=== PATIENT | female | born 1945 | race Caucasian/White ===

== ENCOUNTER 2020-01-09 14:54 | Outpatient (CLI) | payer MEDICARE, SELFPAY ==
--- NOTE | ~2020-01-09 | US_ITS ---
EXAMINATION: US carotid duplex BI DATE: 01/09/2020 15:36 INDICATION: Carotid stenosis. TECHNIQUE: Grayscale, color Doppler, and pulsed Doppler images of the cervical carotid arteries were obtained. The degree of vessel stenosis is placed in one of the following categories: normal, <50%, 5 0-69%, >=70% but less than near-occlusion, near-occlusion, or total occlusion. Note that percent sten osis relative to normal distal artery lumen diameter is indirectly measured from velocity measurement s as described by Miguel, et al. Radiology 2003; 229:340-346. Notes: Normal: Peak systolic velocity <125 centimeters/sec and no plaque <50%. Peak systolic velocity <125 ( EDV <40; ICA/CCA PSV ratio <2.0; used these factors only a tandem lesions or low cardiac output or co ntralateral disease) 50-69 %: PSV 125-230 (EDV 40-100; ratio 2-4) >= 70% but less than near occlusion: PSV greater than 230 (EDV > 100; ratio> 4.0) Near Occlusion: PSV that is variable; markedly narrowed lumen Occlusion: Absent flow on color/spectral Doppler and no lumen on mandel scale. COMPARISON: Ultrasound dated 09/21/2014 FINDINGS: RIGHT: The right common carotid artery (CCA) peak systolic velocity (PSV) is 118 cm/s. The right internal ca rotid artery (ICA) PSV is 148 cm/s. The right ICA end-diastolic velocity (EDV) is 25 cm/s. The right ICA/CCA PSV ratio is 1.2. The external carotid artery (ECA) PSV is 322 cm/s. There is antegrade flow in the right vertebral artery. LEFT: The left CCA PSV is 122 cm/s. The left ICA PSV is 187 cm/s. The left ICA EDV is 30 cm/s. The left ICA /CCA PSV ratio is 1.5. The ECA PSV is 256 cm/s. There is antegrade flow in the left vertebral artery . IMPRESSION: 1. 50-69% stenosis in the right internal carotid artery by sonographic criteria. 2. 50-69% stenosis in the left internal carotid artery by sonographic criteria. Reviewed, dictated and finalized at location A. IMPRESSION: 1. 50-69% stenosis in the right internal carotid artery by sonographic criteria . 2. 50-69% stenosis in the left internal carotid artery by sonographic criteria.
== END 2020-01-09 14:55 | disposition home or self-care (01) ==
PROVIDERS: Visit Provider Internal Medicine Cardiovascular Disease
DX: I65.23 Occlusion and stenosis of bilateral carotid arteries (principal)
CPT/HCPCS: 93880

== ENCOUNTER → 2020-02-17 10:00 | Outpatient (CLI) | payer MEDICARE, SELFPAY ==
--- NOTE | ~2020-02-17 | CT_ITS ---
EXAMINATION: CT cervical spine [facility] EXAM DATE: 02/17/2020 10:21 INDICATION: Neck pain. TECHNIQUE: Spiral CT of the cervical spine was performed without contrast. Axial images were reviewe d. Coronal and sagittal reformatted images were also reviewed. The dose-length product (DLP) for thi s examination was 225.46 mGy-cm. The exposure was tailored according to patient size (auto mA exposu re control), and iterative reconstruction (ASIR) was used as additional dose reduction technique. Th ere is no prior study for comparison. FINDINGS: There is moderate to severe disc disease from C3 through T2. The vertebral bodies are alig murray in the AP dimension. There are no acute fractures identified. Paraspinal soft tissue is unremarka ble. The odontoid process is intact. The lateral masses of C1 line up with C2. Sternotomy wires. Level by level evaluation: C2-C3: Disc does not extend beyond the endplate margin. Uncovertebral joint arthropathy: None. Facet joint arthropathy: Mild to moderate left, mild right. Neural foraminal stenosis: No stenosis. Central canal stenosis: No stenosis. C3-C4: There is a mild diffuse disc bulge. Uncovertebral joint arthropathy: Moderate right, mild to moderate left. Facet joint arthropathy: Moderate bilateral. Neural foraminal stenosis: Moderate right. Central canal stenosis: Mild. C4-C5: There is a mild diffuse disc bulge. Uncovertebral joint arthropathy: Moderate to severe right, mild to moderate left. Facet joint arthropathy: Mild to moderate right, mild left. Neural foraminal stenosis: Moderate right. Central canal stenosis: Mild. C5-C6: There is a mild diffuse disc bulge. Uncovertebral joint arthropathy: Moderate bilateral. Facet joint arthropathy: Mild bilateral. Neural foraminal stenosis: No stenosis. Central canal stenosis: Mild. C6-C7: There is a minimal diffuse disc bulge. Uncovertebral joint arthropathy: Mild to moderate bilateral. Facet joint arthropathy: Minimal bilateral. Neural foraminal stenosis: No stenosis. Central canal stenosis: No stenosis. C7-T1: Disc does not extend beyond the endplate margin. Uncovertebral joint arthropathy: Mild to moderate left, mild right. Facet joint arthropathy: Mild to moderate bilateral . Neural foraminal stenosis: Moderate left, mild to moderate right. Central canal stenosis: No stenosis. IMPRESSION: Moderate to severe cervical disc disease, mild to moderate arthropathy. Reviewed, dictated and finalized at location A. IMPRESSION: Moderate to severe cervical disc disease, mild to moderate arthropa thy.
== END ==
PROVIDERS: Visit Provider Specialist
DX: M54.2 Cervicalgia (principal); M50.80 Other cervical disc disorders, unspecified cervical region
CPT/HCPCS: 72125

== ENCOUNTER 2020-11-05 08:54 | Outpatient (CLI) | payer MEDICARE, SELFPAY ==
--- NOTE | ~2020-11-05 | CT_ITS ---
EXAMINATION: CT ankle RT wo con DATE: 11/05/2020 10:02 INDICATION: Tendon tear at the right ankle TECHNIQUE: High resolution computed tomography (CT) of the right foot and ankle was performed without intravenous contrast. Additional sagittal and coronal reconstructions were performed. Automated expo sure control and iterative reconstruction technique were employed. The dose-length product was 525.22 mGy-cm. COMPARISON: None FINDINGS: Total right ankle arthroplasty which appears well seated in near-anatomic alignment. There is streak artifact surrounding the components which obscures the immediately adjacent bone and soft tissues. 1. 7 x 1.0 x 0.9 cm chronic lytic lesion with thin sclerotic margins at the medial neck of the talus whi ch could represent degenerative cystic change or chronic erosion potentially related to particle dise ase. No other significant lucency surrounding the tibial or talar components to suggest loosening or infection. No periosteal reaction or other suspicious lytic or blastic bone lesions. No fracture. Mil d polyarticular osteoarthritis involving multiple joints throughout the right foot. Small plantar martha caneal spur with prominent heterotopic ossification along the thickened central component of the plan tar aponeurosis. Visualized portions of the flexor and extensor tendons of the ankle appear unremarka ble. No evident ankle joint effusion. Subcutaneous edema at the ankle and extending over the dorsum o f the foot. IMPRESSION: 1. 1.7 x 1.0 x 0.9 cm chronic lytic lesion with thin sclerotic margins at the medial neck of the talu s on the anterior margin of the talar component of a total right ankle arthroplasty. This could repre sent degenerative cystic change/intraosseous ganglion cyst or a chronic erosion potentially related t o particle disease. No other significant lucency surrounding the arthroplasty components to suggest l oosening. 2. Prominent heterotopic ossification along the central component of the plantar aponeurosis suggesti ng sequela of chronic enthesopathy and/or tear of the aponeurosis. 3. Mild polyarticular osteoarthritis involving multiple joints in the right foot. Reviewed, dictated and finalized at location A. IMPRESSION: 1. 1.7 x 1.0 x 0.9 cm chronic lytic lesion with thin sclerotic margins at the m edial neck of the talus on the anterior margin of the talar component of a tota l right ankle arthroplasty. This could represent degenerative cystic change/int raosseous ganglion cyst or a chronic erosion potentially related to particle di sease. No other significant lucency surrounding the arthroplasty components to suggest loosening. 2. Prominent heterotopic ossification along the central component of the planta r aponeurosis suggesting sequela of chronic enthesopathy and/or tear of the apo neurosis. 3. Mild polyarticular osteoarthritis involving multiple joints in the right lamonte t.
[2020-11-05 09:34] LABS: Estimated Glomerular Filt Rate 20
== END 2020-11-05 08:55 | disposition home or self-care (01) ==
PROVIDERS: Visit Provider Specialist
DX: M25.571 Pain in right ankle and joints of right foot (principal); Z96.651 Presence of right artificial knee joint; M89.9 Disorder of bone, unspecified; M17.11 Unilateral primary osteoarthritis, right knee
CPT/HCPCS: 73700

== ENCOUNTER 2020-11-15 14:31 | Outpatient (CLI) | payer MEDICARE, SELFPAY ==
--- NOTE | ~2020-11-15 | US_ITS ---
EXAMINATION: US carotid duplex BI DATE: 11/15/2020 15:14 INDICATION: Carotid stenosis. TECHNIQUE: Grayscale, color Doppler, and pulsed Doppler images of the cervical carotid arteries were obtained. The degree of vessel stenosis is placed in one of the following categories: normal, <50%, 5 0-69%, >=70% but less than near-occlusion, near-occlusion, or total occlusion. Note that percent sten osis relative to normal distal artery lumen diameter is indirectly measured from velocity measurement s as described by Miguel, et al. Radiology 2003; 229:340-346. COMPARISON: Ultrasound 01/09/2020 FINDINGS: RIGHT: The right common carotid artery (CCA) peak systolic velocity (PSV) is 134 cm/s. The right internal ca rotid artery (ICA) PSV is 186 cm/s. The right ICA end-diastolic velocity (EDV) is 23 cm/s. The right ICA/CCA PSV ratio is 1.4. Grayscale and color Doppler images yield an estimate of >=50% diameter redu ction from plaque in the ICA. There is antegrade flow in the right vertebral artery. LEFT: The left CCA PSV is 125 cm/s. The left ICA PSV is 143 cm/s. The left ICA EDV is 31 cm/s. The left ICA /CCA PSV ratio is 1.1. Grayscale and color Doppler images yield an estimate of >=50% diameter reducti on from plaque in the ICA. There is antegrade flow in the left vertebral artery. IMPRESSION: 1. 50-69% stenosis in the right internal carotid artery. 2. 50-69% stenosis in the left internal carotid artery. Reviewed, dictated and finalized at location B.
== END 2020-11-15 14:32 | disposition home or self-care (01) ==
LOC: ANHIMG 14:32
PROVIDERS: Visit Provider Internal Medicine Cardiovascular Disease
DX: I77.9 Disorder of arteries and arterioles, unspecified (principal); I65.23 Occlusion and stenosis of bilateral carotid arteries
CPT/HCPCS: 93880

== ENCOUNTER → 2021-02-04 07:25 | Outpatient (CLI) | payer MEDICARE, SELFPAY ==
--- NOTE | ~2021-02-04 | MR_ITS ---
EXAMINATION: MR wrist RT wo con DATE: 02/04/2021 08:30 INDICATION: Tear of cartilage or tendon with radial sided right wrist pain. TECHNIQUE: Magnetic resonance imaging (MRI) of the right wrist was performed without intravenous cont rast. Sequences performed include axial PD-weighted FSE and PD-weighted FS FSE, coronal PD-weighted F S FSE and T1-weighted SE, and sagittal PD-weighted FS FSE and PD-weighted FSE. COMPARISON: None FINDINGS: There is motion blurring on all sequences which decreases sensitivity for assessment of the triangula r fibrocartilage complex and intrinsic ligaments. Bones/other: The trapezium is absent and there is proximal migration of the first metacarpal which articulates wit h the distal pole of the scaphoid. This is likely related to prior surgical resection for first carpa l metacarpal suspension arthroplasty as there is a suture anchor tract at the base of the first metac arpal. A few residual bone fragments versus heterotopic ossification or degenerative loose bodies are seen at the palmar aspect of the trapezium resection bed. 2 mm ulnar minus variance. Bone alignment is otherwise normal. No fracture or avascular necrosis or pathologic marrow replacing process. There are erosions along the ulnar side of the volar aspect of the lunate along the insertion of the lunotr iquetral ligament. Polyarticular osteoarthritis, severe at the remaining reticulation between the sca phoid and the trapezoid, moderate severity at the radiocarpal joint and at the articulation between t he capitate and hamate and mild at the remaining joints at the wrist and visualized hand. Intrinsic ligaments: Scapholunate ligament tear involving the central membranous component and at least partial tear of th e dorsal component with mild widening of the dorsal aspect of the scapholunate joint space. The volar component appears to remain intact. Lunotriquetral ligament appears to remain intact. Triangular fibrocartilage complex (TFCC): There is increased signal on both the dorsal and volar radioulnar ligaments consistent with at least partial tears. There is also a tear at the radial side of the central fibrocartilaginous disc of the annular fiber cartilage complex. The foveal and ulnar styloid attachments appear to remain intact. Extensor wrist: The extensor pollicis brevis tendon appears to been utilized for the suspected arthroplasty with the tendon terminating at the dorsal palmar, at the base of the first metacarpal. There is thickening of the tendon proximal to the terminal consistent with mild to moderate tendinopathy. Remainder of the e xtensor tendons appear normal. Flexor wrist: The flexor carpi radialis tendon is not visualized at the level of the wrist and distal forearm and h as also likely been utilized for the suspension arthroplasty. The tendinous unable to be followed pro ximally from its insertion at the base of the second and third metacarpals. The remainder of the flex or tendons of the wrist are normal. No abnormality in the carpal tunnel with normal median nerve. Guyon's canal: Guyon's canal including the ulnar nerve and artery are normal. IMPRESSION: 1. Stopper change of prior trapezium resection and first carpal metacarpal suspension arthroplasty wh ich appears to failed with subsidence/proximal migration of the first metacarpal which now articulate s with the distal pole of the scaphoid. The procedure appears to utilizing both the extensor pollicis brevis tendon which extend into a tunnel at the base of the first metacarpal as well as the flexor c arpi radialis tendon which appears absent proximally and the location and technique of this utilizati on remains indeterminate. Correlate with details of the operative procedure(s). 2. Partial tear of the dorsal and central membranous component of the scapholunate ligament. 3. Polyarticular osteoarthritis at the r
== END ==
PROVIDERS: Visit Provider Specialist
DX: S63.591A Other specified sprain of right wrist, initial encounter (principal); M19.031 Primary osteoarthritis, right wrist; Z98.890 Other specified postprocedural states
CPT/HCPCS: 73221

== ENCOUNTER 2021-08-31 11:58 | Inpatient (IN) | payer MEDICARE, SELFPAY ==
[2021-08-31] VITALS (9 sets, daily range): BP systolic 136–145; BP diastolic 35–64; PULSE 60–76; RESP 16–20; TEMP 36.3–37.1; O2SAT 95–100; BMI 30.6
--- NOTE | 2021-08-31 | ECHO_ITS ---
Patient Info Name: Leidy Voss Age: 76 years : 1945 Gender: Female Ht: 59 in Wt: 151 lbs BSA: 1.72 m2 HR: 66 bpm BP: 143 / 61 mmHg Heart Rhythm: Sinus Rhythm Technical Quality: Fair Exam Date: 08/31/2021 1:20 PM Exam Location: [facility] Pulmonary Exam Room: 200 Patient Status: Inpatient Admit Date: 08/31/2021 Staff Ordering Physician: Dianna Aguilera MD Table Assembler Metal: Shikha Cazares RDCS Attending Provider: Dianna Aguilera MD Exam Type: CA echo doppler color flow Study Info Indications - chf exacerbation Complete two-dimensional, color flow and Doppler transthoracic echocardiogram is performed. Summary 1. Complete two-dimensional, color flow and Doppler transthoracic echocardiogram is performed. 2. Left ventricular chamber dimension is normal. 3. Left ventricular systolic function is normal, estimated at 55-60%. 4. There is mildly increased left ventricular wall thickness. 5. The left ventricular diastolic function is grade II diastolic dysfunction. 6. The basal inferior wall, and mid inferior wall are hypokinetic. 7. Left atrial chamber dimension is moderately enlarged. 8. There is mild to moderate mitral valve regurgitation. 9. There is mild tricuspid valve regurgitation. 10. Mild pulmonary hypertension, estimated pulmonary arterial systolic pressure is 41 mmHg. 11. There is mild pulmonic regurgitation. 12. There is small pericardial effusion. Left Ventricle Left ventricular chamber dimension is normal. Left ventricular systolic function is normal, estimated at 55-60%. There is mildly increased left ventricular wall thickness. The left ventricular diastolic function is grade II diastolic dysfunction. The basal inferior wall, and mid inferior wall are hypokinetic. All other elizondo appear normal. Right Ventricle Right ventricular chamber dimension is normal. Right ventricular systolic function is normal. Left Atria Left atrial chamber dimension is moderately enlarged. Right Atria Right atrial chamber dimension is normal. Atrial Septum Intact interatrial septum visualized by color flow imaging. Aortic Valve The aortic valve is trileaflet. There is mild aortic valve sclerosis. There is no aortic valve stenosis. There is trace aortic valve regurgitation. Pulmonic Valve The pulmonic valve is normal. There is no pulmonic valve stenosis. There is mild pulmonic regurgitation. Mitral Valve The mitral valve has normal leaflets. There is no mitral valve stenosis. There is mild to moderate mitral valve regurgitation. Tricuspid Valve The tricuspid valve leaflets are normal. There is no significant tricuspid valve stenosis. There is mild tricuspid valve regurgitation. Mild pulmonary hypertension, estimated pulmonary arterial systolic pressure is 41 mmHg. Pericardium/Pleural The pericardium appears normal. There is small pericardial effusion. Inferior Vena Cava Normal inferior vena cava with <50% collapse upon inspiration consistent with elevated right atrial pressure, 10 mmHg. Aorta The aortic root size at the sinus of Valsalva is normal. Left Ventricular Outflow Tract Name Value Normal LVOT 2D LVOT Diameter 2.0 cm
--- NOTE | ~2021-08-31 | XR_ITS ---
XR chest 1V portable DATE: 09/04/2021 05:55 INDICATION: Shortness of breath TECHNIQUE: Portable AP chest on 09/04/2021 at 0520 hours COMPARISON: September 02, 2021 PA and lateral chest FINDINGS: Status post sternotomy. Borderline heart size. Aortic arch calcification. There is rather diffuse right pulmonary infiltrate and left lower lung infiltrate or atelectasis, imp roved since September 02, 2021. There is slight if any pleural effusion. No pneumothorax. IMPRESSION: Moderate improvement of pulmonary infiltrates since September 02, 2021 Reviewed, dictated and finalized at location A. HER AND BINDER OPERATOR IMPRESSION: Moderate improvement of pulmonary infiltrates since September 02 22
--- NOTE | ~2021-08-31 | US_ITS ---
EXAMINATION: US renal BI EXAM DATE: 08/31/2021 12:55 INDICATION: MASSIMO TECHNIQUE: Multiple grayscale and Doppler images of the kidneys were obtained (by a technologist who performed the scan) and subsequently reviewed. FINDINGS: Right kidney: There is normal contour and mildly increased echogenicity. It measures the right kidne y measures 10.4 x 5.3 x 5.1 cm centimeters. There is a 2 cm cyst. There is no hydronephrosis. Left kidney: There is normal contour and mildly increased echogenicity. It measures 10.0 x 5.5 x 5.3 centimeters. There are no focal renal lesions identified. There is no hydronephrosis. Bladder unremarkable. IMPRESSION: 1. Mildly increased renal echogenicity, medical renal disease. 2. No hydronephrosis. Reviewed, dictated and finalized at location A. NETWORK ARCHITECT
--- NOTE | ~2021-08-31 | XR_ITS ---
XR chest 2V 09/02/2021 09:36 Indication: Shortness of breath Procedure: 2 view chest Comparison: 08/31/2021 Findings: There is bilateral airspace disease, right greater than left, consistent with pneumonia. St atus post median sternotomy for CABG. Cardiomegaly. No significant effusion or pneumothorax. No acute osseous abnormality. Impression: 1: Bilateral airspace disease, right greater than left, consistent with pneumonia. Edema less favored . Reviewed, dictated and finalized at location A. LTY PHYSICIAN Impression: 1: Bilateral airspace disease, right greater than left, consistent with pneumon ia. Edema less favored.
--- NOTE | ~2021-08-31 | XR_ITS ---
EXAMINATION: XR chest 1V portable EXAM DATE: 08/31/2021 12:19 INDICATION: Pulmonary edema. TECHNIQUE: Portable AP frontal chest x-ray was obtained. There is no prior study for comparison. FINDINGS: There is cardiomegaly. Sternotomy wires are present without findings to suggest sternal deh iscence. Moderate amount of right-sided, small amount of left-sided ill-defined edema or pneumonia. N o pneumothorax. Right humeral head rotator cuff repair anchor. The bones are osteopenic. There are b tip degenerative changes. There is aortic arteriosclerosis. IMPRESSION: 1. Cardiomegaly. 2. Moderate right, small left edema or pneumonia. Reviewed, dictated and finalized at location A. T PAIN COORDINATOR
--- NOTE | 2021-08-31 11:18 | ADMGEN ---
This patient, Leidy Voss, was admitted to IMU Room 200-01. Patient/family oriented to hospital policies and general routines including ID bracelet, bed and alarms, visiting hours, pain management, procedures, bathroom and other care routines, personal items, smoking policy, room service/diet, and visiting hours. Information on how to activate the Rapid Response Team has been discussed. Patient/Family are encouraged to report perceived risks to care and to ask questions if they do not understand what they are told or what they should do.
--- NOTE | 2021-08-31 12:05 | ECG_ITS ---
Measurements Intervals Miranda Rate: 64 P: 15 NH: 170 QRS: 17 QRSD: 97 T: -26 QT: 426 QTc: 440 Interpretive Statements SINUS RHYTHM VENTRICULAR PREMATURE COMPLEX BORDERLINE R WAVE PROGRESSION, ANTERIOR LEADS T WAVE ABNORMALITY IN INFERIOR LEADS- CONSIDER ISCHEMIA BASELINE ARTIFACT- I, II, III, AVR, AVL, AVF ABNORMAL ECG Electronically Signed On 08-31-2021 14:15:21 SECURITY TRAINER by Konstantin Nascimento D.O.
[2021-08-31] MEDS: metOLazone 2.5 MG TABLET PO (12:29)
[2021-08-31] MEDS: FUROSEMIDE INJ 100 MG/10 ML VIAL 80 MG IV PUSH ×2 (12:29→17:17)
[2021-08-31 12:34] LABS: Glucose Point of Care 103 mg/dl (65-105)
--- NOTE | 2021-08-31 12:35 | PM.CNNEP ---
Assessment and Plan Assessment and plan (1) MASSIMO (acute kidney injury): Code(s): N17.9 - Acute kidney failure, unspecified Status: Acute Assessment and Plan: etiology not clear possible component of CKD progression(?) however, per patient, symptoms started after her right arm orthopedic procedure... did some event occur during surgery that precipitated this?? check renal ultrasound follow-up on urine electrolytes check CPK hold BP medications agree with high dose IV diuretics follow trend of repeat labs and UOP (2) Chronic kidney disease, stage IV (severe): Code(s): N18.4 - Chronic kidney disease, stage 4 (severe) Status: Chronic Assessment and Plan: baseline creatinine 2.2 - 2.7mg/dl in the last year based on outpatient evaluation, this is due to HTN, diabetes, vascular disease and age (3) CHF exacerbation: Code(s): I50.9 - Heart failure, unspecified Status: Acute Assessment and Plan: Cardiology consulted Echo ordered follow trend of I/Os, daily weights, and respiratory status (4) HTN (hypertension): Code(s): I10 - Essential (primary) hypertension Status: Chronic Assessment and Plan: reasonable control follow trend of hemodynammics (5) Anemia: Code(s): D64.9 - Anemia, unspecified Status: Chronic Assessment and Plan: likely related to underlying CKD possibly exacerbated by MASSIMO and recent surgery(?) check iron studies consider Epogen therapy follow H/H (6) Diabetes: Code(s): E11.9 - Type 2 diabetes mellitus without complications Status: Chronic Assessment and Plan: follow accuchecks glycemic control Will continue to follow. History of Present Illness Reason for Consult Consult date: 08/31/21 Reason for consult: acute renal failure (on chronic kidney disease) Chief Complaint Chief complaint: Acute Renal Failure History of Present Illness Narrative: The patient is a 76-year-old female with a past medical history as outlined below who was transferred from an outside hospital for further management of her worsening renal dysfunction in association with a CHF exacerbation. Apparently, the patient was in her usual state of health until about 3 days prior to her admission to the outside hospital. She apparently developed shortness of breath that progressively got worse in association with worsening lower extremity edema / swelling. Interestingly, the shortness of breath started about a day after she had her recent orthopedic procedure on her right arm. The symptoms continued to progress until eventually she decided to come to the ER for further evaluation. On further questioning, the patient states that following her right arm orthopedic procedure, she was noted to be hypoxic. She was apparently kept overnight for observation but apparently her oxygen saturations improved although Javid still had complaints of shortness of breath nonetheless she was discharged home. When she came back to the outside hospital emergency room with her shortness of breath, workup and evaluation that time demonstrated the patient to be hemodynamically stable but her chest x-ray demonstrated mild to moderate cardiomegaly with hazy bilateral opacities with the right greater than left. There was concern that this pattern may represent pulmonary edema versus underlying pneumonia. In the emergency room, she was given IV diuretics as well as Rocephin and azithromycin after appropriate cultures were obtained. She was subsequent admitted to the outside hospital. During her stay at the outside hospital, she continued to have issues and problems with poor response to diuretics and worsening of her renal dysfunction on top of her baseline disease. There was concern that she may require further intervention that was unavailable at the outside hospital/institution. For this reason, she was transferred to [facility]
[2021-08-31 13:04] LABS: Basophils Percent Auto 0.3 % (0.2-1.2); Eosinophils Absolute Auto 0.1 K/mm3 (0-0.3); Hematocrit 24.2 % (37.0-47.0); Hemoglobin 7.6 g/dL (12.0-15.0); Immature Granulocyte Absolute 0.12 K/mm3 (0.00-0.031); Immature Granulocyte Percent A 0.9 % (0-0.5); Lymphocytes Absolute Auto 1.29 K/mm3 (0.9-3.2); Lymphocytes Percent Auto 9.4 % (18.3-44.2); Mean Corpuscular HGB Conc 31.4 g/dl (32-36); Mean Corpuscular Hemoglobin 28.3 pg (26-34); Mean Platelet Volume 9.7 fl (7.4-10.4); Monocytes Absolute Auto 1.2 K/mm3 (0.1-0.6); Monocytes Percent Auto 8.6 % (2.6-8.5); Neutrophils Percent Auto 79.8 % (45.5-73.1); Platelet Count Result 169 k/mm3 (150-375); Red Blood Count 2.69 M/mm3 (4.2-5.4); Red Cell Distribution Width 16.3 % (11.5-14.5); White Blood Count 13.8 K/mm3 (4.5-10.0)
[2021-08-31 13:12] LABS: Alanine Aminotransferase 15 U/L (4-35); Albumin Level 3.3 g/dL (3.5-5.1); Alkaline Phosphatase 91 U/L (38-126); Anion Gap 11 mmol/L (8-16); Aspartate Amino Transferase 42 U/L (14-36); Bilirubin,Total 0.5 mg/dL (0.2-1.3); Blood Urea Nitrogen 90 mg/dL (7-17); Calcium 8.3 mg/dL (8.4-10.2); Carbon Dioxide 18 mmol/L (22-30); Chloride 103 mmol/L (98-107); Creatine Kinase 155 U/L (30-135); Estimated Glomerular Filt Rate 11; Glucose 107 mg/dL (65-110); Phosphorus 5.9 mg/dL (2.5-4.5); Potassium 4.4 mmol/L (3.4-5.0); Sodium 132 mmol/L (137-145)
[2021-08-31 13:13] LABS: Lactic Acid Reflex 0.8 mmol/L (0.7-2.1)
--- NOTE | 2021-08-31 13:23 | PM.IMHP ---
H&P: HPI History of Present Illness Date/Time: 08/31/21 13:23 Shortness of breath This is a 76-year old lady with a past medical history including not limited to HTN, ASCVD, c/p CABG, stent, CKD, CHF, gout, recent right arm orthopedic procedure who is referred from an OSH after she was managed for CHF exacerbation; in consideration for her worsening kidney function, and poor response to diuretics, she was referred and accepted by our hospitalist department. The patient was in her usual state of health until 3 days ago. The patient, who is not on oxygen at baseline was short of breath, presented to the Ed complaining of SOB since Thursday after she had surgery on her right arm; . On the arrival to the OSH, she reports that she had a nerve block, and her O2 was low after the intervention, so she was kept under observation overnight then discharged home. Her only complaint was SOB.Chest Xray showed mild to moderate cardiomegaly. Hazy bilateral opacities, R>L. This pattern may reporesent underlying pneumonia. The patient vital signs were stable throughout her short inpatient stay, with on admission: temperature 98.2F, pulse 63, R 17, BP 137/37, saturation 98%. She was given furosemide, rocephin, azithromycin, ASA. She was referred to [facility] for renal care Chief Complaint: Shortness of breath. Review of Systems Review of Systems: All systems reviewed & are unremarkable except as noted in HPI and below Constitutional: Constitutional: Reports as per HPI and Reports no additional constitutional complaints Eyes: Eyes: Reports as per HPI and Reports no additional eye complaints ENT: Reports system reviewed and no additional complaints, except as documented and Reports as per HPI Cardiovascular: Cardiovascular: Reports as per HPI, Reports no additional cardiovascular complaints and Reports leg edema Respiratory: Respiratory: Reports as per HPI, Reports dyspnea, Reports dyspnea on exertion and Denies wheezing Gastrointestinal: Gastrointestinal: Reports as per HPI, Reports no additional gastrointestinal complaints, Reports abdominal pain, Reports diarrhea and Reports vomiting Genitourinary: Genitourinary: Reports as per HPI Musculoskeletal: Musculoskeletal: Reports no additional musculoskeletal complaints and Reports as per HPI Integumentary/Breasts: Skin/Breast: Reports system reviewed and no additional complaints, except as docu and Reports as per HPI Neurologic: Reports system reviewed and no additional complaints, except as documented and Reports as per HPI Psychiatric: Psychiatric: Reports no additional psychiatric complaints and Reports as per HPI FOR[facility]LY [facility], [facility] Family History Family History Mother Diabetes mellitus Hypertension Acute myocardial infarction Father Cancer of bone Sibling Social History Social History Smoking status: Never smoker Alcohol intake: never Substance use: never Spiritual care concerns: No Meds Home Medications and Allergies Home Medications Medication Instructions Recorded Confirmed Type acetaminophen-codeine 1 tablet PO Q4H PRN 08/31/21 08/31/21 History allopurinol 150 mg PO DAILY 08/31/21 08/31/21 History amlodipine 5 mg PO DAILY 08/31/21 08/31/21 History aspirin 81 mg PO DAILY 08/31/21 08/31/21 History atorvastatin 40 mg PO HS 08/31/21 08/31/21 History carvedilol 25 mg PO BID 08/31/21 08/31/21 History famotidine [Pepcid AC] 20 mg PO DAILY 08/31/21 08/31/21 History furosemide 40 mg PO DAILY 08/31/21 08/31/21 History glimepiride 2 mg PO DAILY 08/31/21 08/31/21 History hydralazine 100 mg PO QID 08/31/21 08/31/21 History tramadol 50 mg PO Q6H PRN 08/31/21 08/31/21 History Allergies Allergy/AdvReac Type Severity Reaction Status Date / Time metronidazole Allergy Severe Diarrhea Verified 06/14/18 10:48 carbamazepine Allergy Mild Itching Verified 06/14/18 10:48 hydrocodone Al
[2021-08-31 13:31] LABS: Iron 28 ug/dL (37-170)
[2021-08-31 13:41] LABS: Percent Iron Saturation 16 % (20-50)
[2021-08-31 16:02] LABS: Vitamin D 25 Hydroxy 15.7 ng/mL
[2021-08-31 16:44] LABS: Glucose Point of Care 137 mg/dl (65-105)
[2021-08-31] MEDS: ASPIRIN 81 MG ENTERIC TABLET PO (17:16)
[2021-08-31 17:40] LABS: Creatinine Urine 64.3 mg/dL; Urea Random Urine 242 MG/DL
[2021-08-31 17:44] LABS: Add Urine Microscopic? YES; Appearance Urine Clear (Clear); Bilirubin Urine Negative (Negative); Blood Urine Negative (Negative); Color Urine Yellow (Yellow); Glucose Urine UA Negative (Negative); Ketones Urine Negative (Negative); Leukocyte Esterase Ur Negative LEU/UL (NEGATIVE); Nitrate Urine Negative (Negative); Protein Urine 1+ mg/dL (Negative); RBC Urine 0-2 /hpf (0-2); Specific Grav Ur 1.009 (1.001-1.035); Squamous Epithelial Cell Urine Occasional /hpf (Few); Urobilinogen Urine Negative mg/dL (<2.0); WBC Urine 0-3 /hpf (0-3)
[2021-08-31 17:51] LABS: Sodium Urine Random 81 meq/L
--- NOTE | 2021-08-31 18:00 | ECG_ITS ---
Measurements Intervals [place] Rate: 68 P: 72 AL: 172 QRS: 37 QRSD: 97 T: -30 QT: 415 QTc: 444 Interpretive Statements SINUS RHYTHM BORDERLINE R WAVE PROGRESSION, ANTERIOR LEADS T WAVE ABNORMALITY IN INFERIOR LEADS- CONSIDER ISCHEMIA ABNORMAL ECG Electronically Signed On 08-31-2021 19:05:44 GYNECOLOGIST by Konstantin Nascimento D.O.
[2021-08-31] MEDS: carvediloL 25 MG TABLET PO (18:29)
[2021-08-31 18:40] LABS: Troponin I 0.649 ng/mL (0.000-0.034)
[2021-08-31 20:46] LABS: Glucose Point of Care 208 mg/dl (65-105)
[2021-08-31] MEDS: ATORVASTATIN 40 MG TABLET PO (21:14)
[2021-09-01] VITALS (22 sets, daily range): BP systolic 143–177; BP diastolic 39–54; PULSE 64–77; RESP 16–22; TEMP 36.2–37.4; O2SAT 93–99
[2021-09-01 06:40] LABS: Basophils Percent Auto 0.2 % (0.2-1.2); Eosinophils Absolute Auto 0.3 K/mm3 (0-0.3); Eosinophils Percent Auto 2.7 % (0-4.4); Hematocrit 21.5 % (37.0-47.0); Immature Granulocyte Absolute 0.08 K/mm3 (0.00-0.031); Immature Granulocyte Percent A 0.7 % (0-0.5); Lymphocytes Absolute Auto 1.28 K/mm3 (0.9-3.2); Lymphocytes Percent Auto 11.5 % (18.3-44.2); Mean Corpuscular HGB Conc 31.6 g/dl (32-36); Mean Corpuscular Hemoglobin 28.1 pg (26-34); Mean Corpuscular Volume 88.8 fl (80-100); Mean Platelet Volume 10.1 fl (7.4-10.4); Monocytes Absolute Auto 1.1 K/mm3 (0.1-0.6); Monocytes Percent Auto 9.6 % (2.6-8.5); Neutrophils Absolute Auto 8.4 K/mm3 (1.3-6.7); Neutrophils Percent Auto 75.3 % (45.5-73.1); Platelet Count Result 166 k/mm3 (150-375); Red Blood Count 2.42 M/mm3 (4.2-5.4); Red Cell Distribution Width 16.1 % (11.5-14.5); White Blood Count 11.2 K/mm3 (4.5-10.0)
[2021-09-01 06:44] LABS: Hemoglobin 6.8 g/dL (12.0-15.0)
[2021-09-01 07:40] LABS: Anion Gap 7 mmol/L (8-16); Blood Urea Nitrogen 102 mg/dL (7-17); Calcium 7.8 mg/dL (8.4-10.2); Carbon Dioxide 22 mmol/L (22-30); Chloride 103 mmol/L (98-107); Estimated Glomerular Filt Rate 12; Glucose 81 mg/dL (65-110); Magnesium 1.9 mg/dL (1.6-2.3); Phosphorus 6.1 mg/dL (2.5-4.5); Sodium 132 mmol/L (137-145)
[2021-09-01 08:12] LABS: Glucose Point of Care 80 mg/dl (65-105)
--- NOTE | 2021-09-01 08:39 | PM.CNCAR ---
Assessment and Plan Additional Plan 76-year-old lady with: Multivessel coronary artery disease status post surgical revascularization about 10 years ago the notes from our chart indicates she has been fairly stable since then without any new cardiac problems. She clearly has advancing renal failure and now enters the hospital with volume overload probably primarily related to that more than anything else. An echocardiogram was done which has yet to be read in terms of any additional cardiac pathology or change in her LV function. It is interesting to note that she was relatively stable with this until last week's surgery and there was some comment that her nerve block might result in some diaphragmatic dysfunction. This probably should also be evaluated as the chest x-ray at least to my eye looks much worse on the right lung than on the left. Will review her echocardiographic findings and follow with you while she is in the hospital at this time she seems to be responding favorably to the advancement in her diuretics and she is feeling better today than she was prior to transfer over here from [place] Perez Lepe MD [facility] History of Present Illness History of Present Illness Consult date/time: 09/01/21 08:39 Consult reason: congestive heart failure Reason For Visit: Acute Renal Failure Narrative: This is a 76-year-old woman who apparently has coronary artery disease with previous percutaneous and surgical revascularization and normally follows in the office with my partner Dr. Julien. She was transferred here to [facility] yesterday from the hospital over at [place] because of shortness of breath and congestion as well as advancing renal failure. The patient states she was in her usual state lung which she thinks is fairly stable health until last week when she was treated over at [facility] in [place] and had some sort of hand surgery. She says she had some repair of torn tendons in her right hand and had a Anesthesia a nerve block injection. The anesthesiologist told her there was a chance this could cause some dysfunction of her diaphragm on that side. The surgery was done and she was discharged as an outpatient. Since then she has been feeling more short of breath and came into the hospital in [place] with evidence of pulmonary congestion and significant renal insufficiency. She is not experiencing any chest pain pressure or heaviness she does not have any sense of palpitations or syncope. According to the notes from our office she has a lady with multivessel coronary disease was treated with bypass surgery in November of 2011. That was over at [facility] I believe where she received an internal mammary graft to the LAD, a saphenous vein graft to a diagonal, a saphenous vein graft to the ramus intermedius and a 3rd vein graft to the RPDA. Since then she has done well with respect to her heart disease. Dr. Julien is notes since then do indicate that she has been having gradually progressive worsening renal failure which is attributed to her hypertension. She does follow with Dr. Esquivel regarding this. Currently her BUN is 102 with a creatinine of 3.6. Her diuretics were advanced yesterday she says she is now prompting a urine output and she does feel better this morning although she still is wearing nasal cannula oxygen. Her chest x-ray does show congestion which appears radiographically to be significantly worse on the right side than on the left. For some reason a troponin level was done which is 0.6. Review of Systems Constitutional: Constitutional: Reports no additional constitutional complaints Eyes: Eyes: Reports no additional eye complaints ENT: Reports system reviewed and no additional complaints, except as documented Cardiovascular: Cardiovascular: Reports as per HPI Respiratory: Respiratory: Reports dyspnea Gastrointestinal: Gastrointestinal: Reports no additional gastrointestinal complaints Mus
[2021-09-01] MEDS: carvediloL 25 MG TABLET PO ×2 (08:40→17:04)
[2021-09-01] MEDS: FUROSEMIDE INJ 100 MG/10 ML VIAL 80 MG IV PUSH ×2 (08:40→17:04)
[2021-09-01] MEDS: ASPIRIN 81 MG ENTERIC TABLET PO (08:40)
[2021-09-01] MEDS: metOLazone 2.5 MG TABLET PO (08:41)
[2021-09-01] MEDS: FAMOTIDINE 20 MG TABLET PO (08:54)
[2021-09-01] MEDS: allopurinoL 150 MG TABLET PO (08:54)
[2021-09-01] MEDS: INSULIN ASPART (*BKC) 100 UNITS/ML SUB-Q ×2 (11:51→17:03)
--- NOTE | 2021-09-01 12:44 | P.PNNP_ITS ---
Progress Note: A&P Assessment and Plan (1) MASSIMO (acute kidney injury): Code(s): N17.9 - Acute kidney failure, unspecified Status: Acute Assessment and Plan: * etiology not clear * possible component of CKD progression(?) * however, per patient, symptoms started after her right arm orthopedic procedure... * did some event occur during surgery that precipitated this?? * secondary to possible pneumonia? * evaluation to date: * renal ultrasound c/w CKD; no acute findings * CPK mildly elevated but not enough to affect kidney function * urine electrolytes non-prerenal * hold BP medications to see if higher BP promotes better renal perfusion * agree with high dose IV diuretics * follow trend of repeat labs and UOP (2) Chronic kidney disease, stage IV (severe): Code(s): N18.4 - Chronic kidney disease, stage 4 (severe) Status: Chronic Assessment and Plan: * baseline creatinine 2.2 - 2.7mg/dl in the last year * based on outpatient evaluation, this is due to HTN, diabetes, vascular disease and age (3) CHF exacerbation: Code(s): I50.9 - Heart failure, unspecified Status: Acute Assessment and Plan: * Cardiology recommendations noted * follow-up on Echo * reasonable diuresis with current therapy * follow trend of I/Os, daily weights, and respiratory status (4) HTN (hypertension): Code(s): I10 - Essential (primary) hypertension Status: Chronic Assessment and Plan: * up a bit but some BP medications on hold * follow trend of hemodynammics (5) Anemia: Code(s): D64.9 - Anemia, unspecified Status: Chronic Assessment and Plan: * likely related to underlying CKD * possibly exacerbated by MASSIMO and recent surgery(?) * anemia studies with iron deficiency - hold IV iron given concern for infection (pneumonia) * PRBC transfusion per protocol * consider Epogen therapy * follow H/H (6) Diabetes: Code(s): E11.9 - Type 2 diabetes mellitus without complications Status: Chronic Assessment and Plan: * follow accuchecks * on SSI Will continue to follow Subjective Date/time seen: 09/01/21 12:44 Reasonably response to IV diuretic therapy with improvement in breathing/respiratory status and swelling/edema although at the expense of renal function with rise in BUN and creatinine; low H/H noted by AM labs so PRBC transfusion planned today; no apparent distress voiced; at bedside and we discussed the situation. Exam Narrative: General: large female in NAD Heart: normal S1 and S2; no rub Lungs: bibasilar crackles noted Abdomen: soft, nontender, nondistended, positive bowel sounds Extremities: no cyanosis or clubbing; trace - 1+ edema Skin: warm and dry Objective Data Vital Signs Vital Signs: Vital Signs Temp Pulse Resp BP Pulse Ox 09/01/21 12:00 36.9 C 64 18 152/42 H 95 09/01/21 10:00 67 09/01/21 08:40 72 09/01/21 08:00 36.9 C 66 18 152/39 H 97 09/01/21 06:00 65 09/01/21 04:00 36.9 C 64 22 H 149/42 H 99 09/01/21 02:00 70 09/01/21 00:00 37.4 C 69 20 149/45 H 96 08/31/21 22:24 100 08/31/21 22:23 75 100 08/31/21 22:00 76 08/31/21 20:00 37.1 C 69 20 139/49 L 95 08/31/21 18:29 69 08/31/21 18:00
--- NOTE | 2021-09-01 12:44 | PM.PNNEP ---
Progress Note: A&P Assessment and Plan (1) MASSIMO (acute kidney injury): Code(s): N17.9 - Acute kidney failure, unspecified Status: Acute Assessment and Plan: etiology not clear possible component of CKD progression(?) however, per patient, symptoms started after her right arm orthopedic procedure... did some event occur during surgery that precipitated this?? secondary to possible pneumonia? evaluation to date: renal ultrasound c/w CKD; no acute findings CPK mildly elevated but not enough to affect kidney function urine electrolytes non-prerenal hold BP medications to see if higher BP promotes better renal perfusion agree with high dose IV diuretics follow trend of repeat labs and UOP (2) Chronic kidney disease, stage IV (severe): Code(s): N18.4 - Chronic kidney disease, stage 4 (severe) Status: Chronic Assessment and Plan: baseline creatinine 2.2 - 2.7mg/dl in the last year based on outpatient evaluation, this is due to HTN, diabetes, vascular disease and age (3) CHF exacerbation: Code(s): I50.9 - Heart failure, unspecified Status: Acute Assessment and Plan: Cardiology recommendations noted follow-up on Echo reasonable diuresis with current therapy follow trend of I/Os, daily weights, and respiratory status (4) HTN (hypertension): Code(s): I10 - Essential (primary) hypertension Status: Chronic Assessment and Plan: up a bit but some BP medications on hold follow trend of hemodynammics (5) Anemia: Code(s): D64.9 - Anemia, unspecified Status: Chronic Assessment and Plan: likely related to underlying CKD possibly exacerbated by MASSIMO and recent surgery(?) anemia studies with iron deficiency - hold IV iron given concern for infection (pneumonia) PRBC transfusion per protocol consider Epogen therapy follow H/H (6) Diabetes: Code(s): E11.9 - Type 2 diabetes mellitus without complications Status: Chronic Assessment and Plan: follow accuchecks on SSI Will continue to follow Subjective Date/time seen: 09/01/21 12:44 Reasonably response to IV diuretic therapy with improvement in breathing/respiratory status and swelling/edema although at the expense of renal function with rise in BUN and creatinine; low H/H noted by AM labs so PRBC transfusion planned today; no apparent distress voiced; at bedside and we discussed the situation. Exam Narrative: General: large female in NAD Heart: normal S1 and S2; no rub Lungs: bibasilar crackles noted Abdomen: soft, nontender, nondistended, positive bowel sounds Extremities: no cyanosis or clubbing; trace - 1+ edema Skin: warm and dry Objective Data Vital Signs Vital Signs: Vital Signs Temp Pulse Resp BP Pulse Ox 09/01/21 12:00 36.9 C 64 18 152/42 H 95 09/01/21 10:00 67 09/01/21 08:40 72 09/01/21 08:00 36.9 C 66 18 152/39 H 97 09/01/21 06:00 65 09/01/21 04:00 36.9 C 64 22 H 149/42 H 99 09/01/21 02:00 70 09/01/21 00:00 37.4 C 69 20 149/45 H 96 08/31/21 22:24 100 08/31/21 22:23 75 100 08/31/21 22:00 76 08/31/21 20:00 37.1 C 69 20 139/49 L 95 08/31/21 18:29 69 08/31/21 18:00 70 08/31/21 16:00 36.8 C 62 20 145/35 H 97 Intake/Output Intake/Output: Intake & Output 08/29/21 08/30/21 08/31/21 09/01/21 23:59 23:59 23:59 23:59 Intake Total 930 985 Output Total 600 1600 Balance 330 -615 Meds/Results Medications: Active Medications Generic Name Dose Route Start Last Admin Trade Name Freq PRN Reason Stop Dose Admin Acetaminophen/Codeine Phosphate 1 tab 08/31/21 13:46 Acetaminophen/Codeine (*Crx) 300/30 Mg Tablet PO Q4H PRN Pain (Scale Score 4-6) Allopurinol 150 mg 09/01/21 09:00 09/01/21 08:54 Allopurinol 150 Mg Tablet PO 150 mg DAILY MACARIO Administration Aspirin 8
--- NOTE | 2021-09-01 13:01 | PM.IMPN ---
Progress Note: A&P Assessment and Plan (1) CHF exacerbation: Code(s): I50.9 - Heart failure, unspecified Status: Acute Assessment and Plan: Acutely decompensated CHF, 2/2 volume overload from kidney disease contiue diuresis appreciate cardiology input (2) Acute kidney injury superimposed on CKD: Code(s): N17.9 - Acute kidney failure, unspecified; N18.9 - Chronic kidney disease, unspecified Status: Acute Assessment and Plan: cr 3.6 nephrology consult pending (3) HTN (hypertension): Code(s): I10 - Essential (primary) hypertension Status: Chronic Assessment and Plan: monitor bp (4) CAD (coronary artery disease): Code(s): I25.10 - Atherosclerotic heart disease of ramona coronary artery without angina pectoris Status: Acute Assessment and Plan: CAD s/p CABG and stents; no reports of chest pain. cardiology managing (5) Gout: Code(s): M10.9 - Gout, unspecified Status: Acute Assessment and Plan: Currently no evidence of acute exacerbation. continue allopurinol (6) Diabetes: Code(s): E11.9 - Type 2 diabetes mellitus without complications Status: Chronic Assessment and Plan: ssi monitor bs Subjective Date/time seen: 09/01/21 13:01 no new complaints breathing is better Exam Const: General: no acute distress and uncomfortable HENMT: Mouth: Yes moist mucous membranes Eyes: General: appearance normal, both eyes and all related structures Sclera: sclerae normal Pupils: Equal, round and reactive pupils present Neck: Neck: no JVD Lymphatic: lymphadenopathy not noted Resp: Effort & Inspection: normal respiratory effort Auscultation: clear to auscultation bilaterally, no crackles and rales Cardio: Rate: regular rate Rhythm: regular rhythm GI: Inspection: non-distended Skin: General skin exam: normal color and no rashes or lesions noted Neuro: Cranial nerves: Yes Equal, round and reactive pupils present Extrem: General: normal to inspection Right upper extremity: normal to inspection Left upper extremity: normal to inspection Right lower extremity: normal to inspection and edema Left lower extremity: normal to inspection and edema Other: RUE cast Psych: Mental Status: mental status grossly normal Objective Data Vital Signs Vital Signs: Vital Signs - 24 hr 08/31/21 16:00 08/31/21 18:00 08/31/21 18:29 Temperature 98.2 F Pulse Rate 62 70 69 Respiratory Rate 20 Blood Pressure 145/35 H Pulse Oximetry 97 08/31/21 20:00 08/31/21 22:00 08/31/21 22:23 Temperature 98.7 F Pulse Rate 69 76 75 Respiratory Rate 20 Blood Pressure 139/49 L Pulse Oximetry 95 100 08/31/21 22:24 09/01/21 00:00 09/01/21 02:00 Temperature 99.3 F Pulse Rate 69 70 Respiratory Rate 20 Blood Pressure 149/45 H Pulse Oximetry 100 96 09/01/21 04:00 09/01/21 06:00 09/01/21 08:00 Temperature 98.5 F 98.4 F Pulse Rate 64 65 66 Respiratory Rate 22 H 18 Blood Pressure 149/42 H 152/39 H Pulse Oximetry 99 97 09/01/21 08:40 09/01/21 10:00 09/01/21 12:00 Temperature 98.4 F Pulse Rate 72 67 64 Respiratory Rate 18 Blood Pressure 152/42 H Pulse Oximetry 95 Intake/Output Intake/Output: Intake & Output 08/29/21 08/30/21 08/31/21 09/01/21 23:59 23:59 23:59 23:59 Intake Total 930 985 Output Total 600 1600 Balance 330 -615 Meds/Results Medications: Active Medications Generic Name Dose Route Start Last Admin Trade Name Freq PRN Reason Stop Dose Admin Acetaminophen/Codeine Phosphate 1 tab 08/31/21 13:46 Acetaminophen/Codeine (*Crx) 300/30 Mg Tablet PO Q4H PRN Pain (Scale Score 4-6) Allopurinol 150 mg 09/01/21 09:00 09/01/21 08:54 Allopurinol 150 Mg Tablet PO 150 mg DAILY MACARIO Administration Aspirin 81 mg 08/31/21 14:25 09/01/21 08:40 Aspirin 81 Mg Enteric Tablet PO 81 mg QAM MACARIO Administration Atorvastatin C
[2021-09-01] MEDS: SODIUM CHLORIDE 0.9% IV 250 ML 30 ML IV CONT (14:00)
[2021-09-01] MEDS: TUBING, BLOOD PLUM PUMP TUBING 1 EACH XX (14:00)
[2021-09-01 14:09] LABS: Iron 30 ug/dL (37-170)
[2021-09-01 14:19] LABS: Percent Iron Saturation 18 % (20-50)
[2021-09-01 15:04] LABS: Folic Acid 12.3 ng/mL (2.76->20)
[2021-09-01 16:22] LABS: Glucose Point of Care 241 mg/dl (65-105)
[2021-09-01 16:22] LABS: Glucose Point of Care 207 mg/dl (65-105)
[2021-09-01 20:12] LABS: Glucose Point of Care 191 mg/dl (65-105)
[2021-09-01] MEDS: ATORVASTATIN 40 MG TABLET PO (20:20)
--- NOTE | 2021-09-01 21:15 | PC.NURSE ---
This patient, Leidy Voss, was transferred to [[id number] ] on 09/01/21 at 2115. Personal belongings sent with patient. Report given to [rn ]. Appropriate documentation sent with patient.
--- NOTE | 2021-09-01 21:46 | PC.NURSE ---
This patient, Leidy Voss, was received from [[id number]] on 09/01/21 at 2146. Patient/family oriented to unit policies and routines
[2021-09-02] VITALS (16 sets, daily range): BP systolic 147–180; BP diastolic 54–69; PULSE 65–77; RESP 16–18; TEMP 36.1–36.9; O2SAT 93–97
[2021-09-02 05:42] LABS: Basophils Absolute Auto 0.1 K/mm3 (0.0-0.1); Basophils Percent Auto 0.5 % (0.2-1.2); Eosinophils Absolute Auto 0.4 K/mm3 (0-0.3); Eosinophils Percent Auto 3.4 % (0-4.4); Hemoglobin 9.6 g/dL (12.0-15.0); Immature Granulocyte Absolute 0.12 K/mm3 (0.00-0.031); Immature Granulocyte Percent A 1.1 % (0-0.5); Lymphocytes Absolute Auto 1.33 K/mm3 (0.9-3.2); Lymphocytes Percent Auto 12.4 % (18.3-44.2); Mean Corpuscular HGB Conc 33.1 g/dl (32-36); Mean Corpuscular Hemoglobin 28.2 pg (26-34); Mean Platelet Volume 9.6 fl (7.4-10.4); Monocytes Absolute Auto 1.1 K/mm3 (0.1-0.6); Monocytes Percent Auto 10.6 % (2.6-8.5); Neutrophils Absolute Auto 7.7 K/mm3 (1.3-6.7); Platelet Count Result 202 k/mm3 (150-375); Red Blood Count 3.41 M/mm3 (4.2-5.4); Red Cell Distribution Width 16.3 % (11.5-14.5); White Blood Count 10.7 K/mm3 (4.5-10.0)
[2021-09-02 07:45] LABS: Glucose Point of Care 138 mg/dl (65-105)
[2021-09-02] MEDS: FUROSEMIDE INJ 100 MG/10 ML VIAL 80 MG IV PUSH ×2 (08:14→18:26)
[2021-09-02] MEDS: FAMOTIDINE 20 MG TABLET PO (08:14)
--- NOTE | 2021-09-02 08:14 | P.PNNP_ITS ---
Progress Note: A&P Assessment and Plan (1) MASSIMO (acute kidney injury): Code(s): N17.9 - Acute kidney failure, unspecified Status: Acute Assessment and Plan: * MASSIMO * evaluation to date: * renal ultrasound c/w CKD; no acute findings * CPK mildly elevated but not enough to affect kidney function * urine electrolytes non-prerenal * BP is generous. Systolic is running between 140 and 177. * Getting IV diuretics plus metolazone. * Symptoms much better from volume overload. * Will go 1 more day with this. * follow trend of repeat labs and UOP (2) Chronic kidney disease, stage IV (severe): Code(s): N18.4 - Chronic kidney disease, stage 4 (severe) Status: Chronic Assessment and Plan: * baseline creatinine 2.2 - 2.7mg/dl in the last year * based on outpatient evaluation, this is due to HTN, diabetes, vascular disease and age (3) CHF exacerbation: Code(s): I50.9 - Heart failure, unspecified Status: Acute Assessment and Plan: * Cardiology recommendations noted * follow-up on Echo. Studies done but report not out yet. * reasonable diuresis with current therapy * This is improved. (4) HTN (hypertension): Code(s): I10 - Essential (primary) hypertension Status: Chronic Assessment and Plan: * Systolic is generous between 140 and 177. * She is on carvedilol, furosemide, metolazone. * At home she is on amlodipine and hydralazine as well. * Will wait 1 more day while we diurese. (5) Anemia: Code(s): D64.9 - Anemia, unspecified Status: Chronic Assessment and Plan: * likely related to underlying CKD * possibly exacerbated by MASSIMO and recent surgery(?) * anemia studies with iron deficiency - hold IV iron given concern for infection (pneumonia) * PRBC transfusion per protocol * consider Epogen therapy * Check CBC tomorrow (6) Diabetes: Code(s): E11.9 - Type 2 diabetes mellitus without complications Status: Chronic Assessment and Plan: * On Accu-Cheks and sliding-scale insulin per hospitalist. Subjective Date/time seen: 09/02/21 08:14 Interval history: Patient is feeling better. Breathing is normal now. Swelling is gone. She is sitting at the side of the bed eating breakfast. Sister is in the room. Patient and I discussed the case. Exam Narrative: General: large female in NAD Heart: normal S1 and S2; no rub or gallop Lungs: Fairly clear. Abdomen: soft, nontender, nondistended, positive bowel sounds Extremities: no cyanosis or clubbing; trace - 1+ edema Skin: No rash Objective Data Vital Signs Vital Signs: Vital Signs - 24 hr 09/01/21 08:40 09/01/21 10:00 09/01/21 12:00 Temperature 36.9 C Pulse Rate 72 67 64 Respiratory Rate 18 Blood Pressure 152/42 H Pulse Oximetry 95 09/01/21 13:33 09/01/21 13:50 09/01/21 14:00 Temperature 36.7 C 36.6 C Pulse Rate 67 67 67 Respiratory Rate 20 18 Blood Pressure 143/47 H 149/43 H Pulse Oximetry 95 95 09/01/21 14:50 09/01/21 15:50 09/01/21 16:00 Temperature 36.9 C 36.9 C 36.9 C Pulse Rate 68 67 68 Respiratory Rate 18 18 18 Blood Pressure 151/47 H 151/47 H 151/47 H Pulse Oximetry 93 93 93 09/01/21 16:50 09/01/21 17
--- NOTE | 2021-09-02 08:14 | PM.PNNEP ---
Progress Note: A&P Assessment and Plan (1) MASSIMO (acute kidney injury): Code(s): N17.9 - Acute kidney failure, unspecified Status: Acute Assessment and Plan: MASSIMO evaluation to date: renal ultrasound c/w CKD; no acute findings CPK mildly elevated but not enough to affect kidney function urine electrolytes non-prerenal BP is generous. Systolic is running between 140 and 177. Getting IV diuretics plus metolazone. Symptoms much better from volume overload. Will go 1 more day with this. follow trend of repeat labs and UOP (2) Chronic kidney disease, stage IV (severe): Code(s): N18.4 - Chronic kidney disease, stage 4 (severe) Status: Chronic Assessment and Plan: baseline creatinine 2.2 - 2.7mg/dl in the last year based on outpatient evaluation, this is due to HTN, diabetes, vascular disease and age (3) CHF exacerbation: Code(s): I50.9 - Heart failure, unspecified Status: Acute Assessment and Plan: Cardiology recommendations noted follow-up on Echo. Studies done but report not out yet. reasonable diuresis with current therapy This is improved. (4) HTN (hypertension): Code(s): I10 - Essential (primary) hypertension Status: Chronic Assessment and Plan: Systolic is generous between 140 and 177. She is on carvedilol, furosemide, metolazone. At home she is on amlodipine and hydralazine as well. Will wait 1 more day while we diurese. (5) Anemia: Code(s): D64.9 - Anemia, unspecified Status: Chronic Assessment and Plan: likely related to underlying CKD possibly exacerbated by MASSIMO and recent surgery(?) anemia studies with iron deficiency - hold IV iron given concern for infection (pneumonia) PRBC transfusion per protocol consider Epogen therapy Check CBC tomorrow (6) Diabetes: Code(s): E11.9 - Type 2 diabetes mellitus without complications Status: Chronic Assessment and Plan: On Accu-Cheks and sliding-scale insulin per hospitalist. Subjective Date/time seen: 09/02/21 08:14 Interval history: Patient is feeling better. Breathing is normal now. Swelling is gone. She is sitting at the side of the bed eating breakfast. Sister is in the room. Patient and I discussed the case. Exam Narrative: General: large female in NAD Heart: normal S1 and S2; no rub or gallop Lungs: Fairly clear. Abdomen: soft, nontender, nondistended, positive bowel sounds Extremities: no cyanosis or clubbing; trace - 1+ edema Skin: No rash Objective Data Vital Signs Vital Signs: Vital Signs - 24 hr 09/01/21 08:40 09/01/21 10:00 09/01/21 12:00 Temperature 36.9 C Pulse Rate 72 67 64 Respiratory Rate 18 Blood Pressure 152/42 H Pulse Oximetry 95 09/01/21 13:33 09/01/21 13:50 09/01/21 14:00 Temperature 36.7 C 36.6 C Pulse Rate 67 67 67 Respiratory Rate 20 18 Blood Pressure 143/47 H 149/43 H Pulse Oximetry 95 95 09/01/21 14:50 09/01/21 15:50 09/01/21 16:00 Temperature 36.9 C 36.9 C 36.9 C Pulse Rate 68 67 68 Respiratory Rate 18 18 18 Blood Pressure 151/47 H 151/47 H 151/47 H Pulse Oximetry 93 93 93 09/01/21 16:50 09/01/21 17:03 09/01/21 17:04 Temperature 37.0 C Pulse Rate 68 67 Respiratory Rate 16 Blood Pressure 154/54 H 154/54 H Pulse Oximetry 96 09/01/21 20:00 09/01/21 20:22 09/01/21 21:43 Temperature 36.2 C L Pulse Rate 68 70 73 Respiratory Rate 18 18 Blood Pressure 177/50 H Pulse Oximetry 96 96 09/01/21 22:20 09/01/21 22:44 09/02/21 00:00 Temperature Pulse Rate 77 67 Respiratory Rate Blood Pressure Pulse Oximetry 95 96 09/02/21 00:29 09/02/21 04:17 09/02/21 04:21 Temperature 36.2 C L Pulse Rate 73 66 68 Respiratory Rate 18 Blood Pressure 147/54 H Pulse Oximetry 94 93 Intake/Output Intake/Output: Intake & Output 08/30/21 08/31/21 09/01/21 09/02/21 23:59 23:59 23:59 23:59
[2021-09-02] MEDS: metOLazone 2.5 MG TABLET PO (08:15)
[2021-09-02] MEDS: carvediloL 25 MG TABLET PO ×2 (08:15→18:24)
[2021-09-02] MEDS: allopurinoL 150 MG TABLET PO (08:16)
[2021-09-02] MEDS: ASPIRIN 81 MG ENTERIC TABLET PO (08:17)
[2021-09-02 08:36] LABS: Anion Gap 10 mmol/L (8-16); Blood Urea Nitrogen 104 mg/dL (7-17); Calcium 7.9 mg/dL (8.4-10.2); Carbon Dioxide 22 mmol/L (22-30); Chloride 101 mmol/L (98-107); Estimated Glomerular Filt Rate 14; Glucose 125 mg/dL (65-110); Potassium 3.6 mmol/L (3.4-5.0); Sodium 133 mmol/L (137-145)
--- NOTE | 2021-09-02 09:35 | PM.PNCARD ---
Progress Note: A&P Assessment and Plan (1) Volume overload: Code(s): E87.70 - Fluid overload, unspecified Status: Acute Assessment and Plan: Patient has volume overload. No significant ?CHF in my opinion. She had worsening renal failure and her ejection fraction is normal. She does have some diastolic dysfunction but again I think that her volume status predominantly secondary to acute renal failure. She is significantly improving as her renal function also improves. Continue diuretics per Nephrology. Kcl 40 meq po x 1 today as aggressive diuresis continues (2) Acute kidney injury superimposed on CKD: Code(s): N17.9 - Acute kidney failure, unspecified; N18.9 - Chronic kidney disease, unspecified Status: Acute Assessment and Plan: Per Dr. Esquivel (3) HTN (hypertension): Code(s): I10 - Essential (primary) hypertension Status: Chronic Assessment and Plan: Above goal (4) CAD (coronary artery disease): Code(s): I25.10 - Atherosclerotic heart disease of [place] coronary artery without angina pectoris Status: Acute Assessment and Plan: No anginal symptoms. Elevated troponins are not secondary to acute plaque rupture/ACS (5) Anemia: Code(s): D64.9 - Anemia, unspecified Status: Chronic Subjective Date/time seen: 09/02/21 09:35 Interval history: 76-year-old with volume overload. History of CAD status post CABG and renal failure Date of service 09/02/2021: She is feeling better. Swelling has improved. No chest pain shortness of breath at rest Review of Systems Constitutional: Constitutional: Reports no additional constitutional complaints Eyes: Eyes: Reports no additional eye complaints ENT: Reports system reviewed and no additional complaints, except as documented Cardiovascular: Cardiovascular: Reports as per HPI and Reports dyspnea Respiratory: Respiratory: Reports dyspnea Gastrointestinal: Gastrointestinal: Reports no additional gastrointestinal complaints Musculoskeletal: Musculoskeletal: Reports as per HPI and Reports arthralgias Integumentary/Breasts: Skin/Breast: Reports system reviewed and no additional complaints, except as docu Neurologic: Reports as per HPI Endocrine: Endocrine: Reports no additional endocrine complaints Hematologic/Lymphatic: Hematologic/Lymphatic: Reports no additional hematologic/lymphatic complaints Allergic/Immunologic: Allergic/Immunologic: Reports no additional allergic/immunologic complaints Exam Const: General: comfortable and no acute distress Other: Pleasant overweight white female no apparent distress. HENMT: Mouth: Yes moist mucous membranes Eyes: Sclera: sclerae normal Neck: Neck: supple and no JVD Resp: Effort & Inspection: normal respiratory effort Other: Crackles noted bilaterally Cardio: Rate: regular rate Rhythm: regular rhythm Other: No audible murmur or gallop GI: Auscultation: normal bowel sounds Skin: General skin exam: normal color Neuro: Cognition (Neuro): normal cognition Extrem: General: normal to inspection Other: Minimal edema at this time Psych: Appearance: grossly normal Objective Data Vital Signs Vital Signs: Vital Signs - 24 hr 09/01/21 10:00 09/01/21 12:00 09/01/21 13:33 Temperature 36.9 C 36.7 C Pulse Rate 67 64 67 Respiratory Rate 18 20 Blood Pressure 152/42 H 143/47 H Pulse Oximetry 95 95 09/01/21 13:50 09/01/21 14:00 09/01/21 14:50 Temperature 36.6 C 36.9 C Pulse Rate 67 67 68 Respiratory Rate 18 18 Blood Pressure 149/43 H 151/47 H Pulse Oximetry 95 93 09/01/21 15:50 09/01/21 16:00 09/01/21 16:50 Temperature 36.9 C 36.9 C 37.0 C Pulse Rate 67 68 68 Respiratory Rate 18 18 16 Blood Pressure 151/47 H 151/47 H 154/54 H Pulse Oximetry 93 93 96 09/01/21 17:03 09/01/21 17:04 09/01/21 20:00 Temperature Pulse Rate 67 68 Respiratory Rate 18 Blood Pressure 154/54 H Pulse Oximetry 96
[2021-09-02] MEDS: POTASSIUM CHLORIDE 20 MEQ TABLET 40 MEQ PO (10:30)
--- NOTE | 2021-09-02 11:34 | PM.IMPN ---
Progress Note: A&P Assessment and Plan (1) CHF exacerbation: Code(s): I50.9 - Heart failure, unspecified Status: Acute Assessment and Plan: Acutely decompensated CHF, 2/2 volume overload from kidney disease contiue diuresis appreciate cardiology input (2) Acute kidney injury superimposed on CKD: Code(s): N17.9 - Acute kidney failure, unspecified; N18.9 - Chronic kidney disease, unspecified Status: Acute Assessment and Plan: cr improve slightly No emergent need for dialysis nephrology consult pending (3) HTN (hypertension): Code(s): I10 - Essential (primary) hypertension Status: Chronic Assessment and Plan: monitor bp (4) CAD (coronary artery disease): Code(s): I25.10 - Atherosclerotic heart disease of [place] coronary artery without angina pectoris Status: Acute Assessment and Plan: CAD s/p CABG and stents; no reports of chest pain. cardiology managing (5) Gout: Code(s): M10.9 - Gout, unspecified Status: Acute Assessment and Plan: Currently no evidence of acute exacerbation. continue allopurinol (6) Diabetes: Code(s): E11.9 - Type 2 diabetes mellitus without complications Status: Chronic Assessment and Plan: ssi monitor bs Subjective Date/time seen: 09/02/21 11:35 Feeling much better today. Breathing is much improved. Creatinine is slightly improved Review of Systems Review of Systems: 10 point ROS negative except as stated in HPI / Subjective Exam Narrative: General: alert and oriented Psych: appropriate mood nad affect Eyes: PERRLA Neck: Trachea midline, no new lesions Skin: no changes Lungs: CTA Cardiac: Normal S1,S2, no MGR ABD: soft, nd, nt, nbs Ext: no new lesions, no cce Vasc: Pulses intact Objective Data Vital Signs Vital Signs: Vital Signs - 24 hr 09/01/21 12:00 09/01/21 13:33 09/01/21 13:50 Temperature 98.4 F 98.1 F 97.8 F Pulse Rate 64 67 67 Respiratory Rate 18 20 18 Blood Pressure 152/42 H 143/47 H 149/43 H Pulse Oximetry 95 95 95 09/01/21 14:00 09/01/21 14:50 09/01/21 15:50 Temperature 98.4 F 98.4 F Pulse Rate 67 68 67 Respiratory Rate 18 18 Blood Pressure 151/47 H 151/47 H Pulse Oximetry 93 93 09/01/21 16:00 09/01/21 16:50 09/01/21 17:03 Temperature 98.4 F 98.6 F Pulse Rate 68 68 Respiratory Rate 18 16 Blood Pressure 151/47 H 154/54 H 154/54 H Pulse Oximetry 93 96 09/01/21 17:04 09/01/21 20:00 09/01/21 20:22 Temperature 97.2 F L Pulse Rate 67 68 70 Respiratory Rate 18 18 Blood Pressure 177/50 H Pulse Oximetry 96 96 09/01/21 21:43 09/01/21 22:20 09/01/21 22:44 Temperature Pulse Rate 73 77 Respiratory Rate Blood Pressure Pulse Oximetry 95 96 09/02/21 00:00 09/02/21 00:29 09/02/21 04:17 Temperature 97.1 F L Pulse Rate 67 73 66 Respiratory Rate 18 Blood Pressure 147/54 H Pulse Oximetry 94 09/02/21 04:21 09/02/21 08:15 Temperature Pulse Rate 68 69 Respiratory Rate Blood Pressure Pulse Oximetry 93 Intake/Output Intake/Output: Intake & Output 08/30/21 08/31/21 09/01/21 09/02/21 23:59 23:59 23:59 23:59 Intake Total 930 2395 440 Output Total 600 1850 1500 Balance 330 545 -1060 Meds/Results Medications: Active Medications Generic Name Dose Route Start Last Admin Trade Name Freq PRN Reason Stop Dose Admin Acetaminophen/Codeine Phosphate 1 tab 08/31/21 13:46 Acetaminophen/Codeine (*Crx) 300/30 Mg Tablet PO Q4H PRN Pain (Scale Score 4-6) Allopurinol 150 mg 09/01/21 09:00 09/02/21 08:16 Allopurinol 150 Mg Tablet PO 150 mg DAILY MACARIO Administration Aspirin 81 mg 08/31/21 14:25 09/02/21 08:17 Aspirin 81 Mg Enteric Tablet PO 81 mg QAM MACARIO Administration Atorvastatin Calcium 40 mg 08/31/21 21:00 09/01/21 20:20 Atorvastatin 40 Mg Tablet PO 40 mg HS MACARIO Administration Carvedilol 25 mg 08/31/21 17:00 09/02/21
[2021-09-02 11:59] LABS: Glucose Point of Care 262 mg/dl (65-105)
[2021-09-02 15:15] LABS: Glucose Point of Care 218 mg/dl (65-105)
[2021-09-02 16:32] LABS: Glucose Point of Care 172 mg/dl (65-105)
[2021-09-02 20:21] LABS: Glucose Point of Care 277 mg/dl (65-105)
[2021-09-02] MEDS: ATORVASTATIN 40 MG TABLET PO (20:28)
[2021-09-03] VITALS (11 sets, daily range): BP systolic 156–180; BP diastolic 40–82; PULSE 61–65; RESP 15–16; TEMP 36.5–36.8; O2SAT 96–98
[2021-09-03 05:40] LABS: Basophils Percent Auto 0.4 % (0.2-1.2); Eosinophils Absolute Auto 0.3 K/mm3 (0-0.3); Hematocrit 30.3 % (37.0-47.0); Hemoglobin 9.9 g/dL (12.0-15.0); Immature Granulocyte Absolute 0.09 K/mm3 (0.00-0.031); Immature Granulocyte Percent A 0.9 % (0-0.5); Lymphocytes Absolute Auto 1.37 K/mm3 (0.9-3.2); Lymphocytes Percent Auto 13.8 % (18.3-44.2); Mean Corpuscular HGB Conc 32.7 g/dl (32-36); Mean Corpuscular Volume 85.8 fl (80-100); Mean Platelet Volume 9.3 fl (7.4-10.4); Monocytes Absolute Auto 1.1 K/mm3 (0.1-0.6); Monocytes Percent Auto 10.7 % (2.6-8.5); Neutrophils Absolute Auto 7.1 K/mm3 (1.3-6.7); Neutrophils Percent Auto 71.2 % (45.5-73.1); Platelet Count Result 216 k/mm3 (150-375); Red Blood Count 3.53 M/mm3 (4.2-5.4); Red Cell Distribution Width 16.6 % (11.5-14.5); White Blood Count 9.9 K/mm3 (4.5-10.0)
[2021-09-03 05:53] LABS: Albumin Level 3.2 g/dL (3.5-5.1); Anion Gap 9 mmol/L (8-16); Blood Urea Nitrogen 103 mg/dL (7-17); Calcium 8.3 mg/dL (8.4-10.2); Carbon Dioxide 25 mmol/L (22-30); Chloride 101 mmol/L (98-107); Estimated Glomerular Filt Rate 15; Glucose 134 mg/dL (65-110); Phosphorus 5.4 mg/dL (2.5-4.5); Sodium 135 mmol/L (137-145)
[2021-09-03 07:46] LABS: Glucose Point of Care 143 mg/dl (65-105)
[2021-09-03] MEDS: FAMOTIDINE 20 MG TABLET PO (08:51)
[2021-09-03] MEDS: FUROSEMIDE INJ 100 MG/10 ML VIAL 80 MG IV PUSH ×2 (08:52→17:01)
[2021-09-03] MEDS: carvediloL 25 MG TABLET PO ×2 (08:52→17:01)
[2021-09-03] MEDS: allopurinoL 150 MG TABLET PO (08:52)
[2021-09-03] MEDS: ASPIRIN 81 MG ENTERIC TABLET PO (08:52)
[2021-09-03] MEDS: metOLazone 2.5 MG TABLET PO (08:52)
--- NOTE | 2021-09-03 10:46 | P.PNNP_ITS ---
Progress Note: A&P Assessment and Plan (1) MASSIMO (acute kidney injury): Code(s): N17.9 - Acute kidney failure, unspecified Status: Acute Assessment and Plan: * MASSIMO * evaluation to date: * renal ultrasound c/w CKD; no acute findings * CPK mildly elevated but not enough to affect kidney function * urine electrolytes non-prerenal * Because the creatinine is improving with active diuresis I suspect that this is renal venous hypertension causing her creatinine to be elevated in the presence of the volume overload. * BP is generous. Systolic is running between 140 and 177. * Getting IV diuretics plus metolazone. * her creatinine is getting better , in spite of ongoing IV diuretics. * I think we should continue the IV diuretics.. * Will check another creatinine tomorrow and reassess. (2) Chronic kidney disease, stage IV (severe): Code(s): N18.4 - Chronic kidney disease, stage 4 (severe) Status: Chronic Assessment and Plan: * baseline creatinine 2.2 - 2.7mg/dl in the last year * based on outpatient evaluation, this is due to HTN, diabetes, vascular disease and age (3) CHF exacerbation: Code(s): I50.9 - Heart failure, unspecified Status: Acute Assessment and Plan: * Cardiology recommendations noted * echocardiogram shows grade 2 diastolic dysfunction, [id number] mitral valve regurgitation and mild pulmonary hypertension. * reasonable diuresis with current therapy * It is not clear why she suddenly went into heart failure. * This is , however, improved. (4) HTN (hypertension): Code(s): I10 - Essential (primary) hypertension Status: Chronic Assessment and Plan: * Systolic is generous between 140 and 177. * She is on carvedilol, furosemide, metolazone. * At home she is on amlodipine and hydralazine as well. * Will wait an additional day while we diurese. (5) Anemia: Code(s): D64.9 - Anemia, unspecified Status: Chronic Assessment and Plan: * likely related to underlying CKD * possibly exacerbated by MASSIMO and recent surgery(?) * anemia studies with iron deficiency - hold IV iron given concern for infection (pneumonia) * PRBC transfusion per protocol * consider Epogen therapy * Check CBC tomorrow (6) Diabetes: Code(s): E11.9 - Type 2 diabetes mellitus without complications Status: Chronic Assessment and Plan: * On Accu-Cheks and sliding-scale insulin per hospitalist. Subjective Date/time seen: 09/03/21 10:46 Interval history: Patient is feeling better. Breathing is normal now. Swelling is gone. she slept well. Eating okay. Exam Narrative: General: large female in NAD Heart: normal S1 and S2; no rub or gallop Lungs: Mildly coarse at the bases Abdomen: soft, nontender, nondistended, positive bowel sounds Extremities: no cyanosis or clubbing; trace - 1+ edema Skin: No rash Objective Data Vital Signs Vital Signs: Vital Signs - 24 hr 09/02/21 12:00 09/02/21 12:10 09/02/21 14:08 Temperature 36.9 C Pulse Rate 66 71 66 Respiratory Rate 18 Blood Pressure 147/69 H Pulse Oximetry 93 93 09/02/21 15:33 09/02/21 16:00 09/02/21 18:24 Temperature Pulse Rate 77 66 71 Respiratory Rate Blood Pressure Pulse Oximetry 97 09/02/21
--- NOTE | 2021-09-03 10:46 | PM.PNNEP ---
Progress Note: A&P Assessment and Plan (1) MASSIMO (acute kidney injury): Code(s): N17.9 - Acute kidney failure, unspecified Status: Acute Assessment and Plan: MASSIMO evaluation to date: renal ultrasound c/w CKD; no acute findings CPK mildly elevated but not enough to affect kidney function urine electrolytes non-prerenal Because the creatinine is improving with active diuresis I suspect that this is renal venous hypertension causing her creatinine to be elevated in the presence of the volume overload. BP is generous. Systolic is running between 140 and 177. Getting IV diuretics plus metolazone. her creatinine is getting better , in spite of ongoing IV diuretics. I think we should continue the IV diuretics.. Will check another creatinine tomorrow and reassess. (2) Chronic kidney disease, stage IV (severe): Code(s): N18.4 - Chronic kidney disease, stage 4 (severe) Status: Chronic Assessment and Plan: baseline creatinine 2.2 - 2.7mg/dl in the last year based on outpatient evaluation, this is due to HTN, diabetes, vascular disease and age (3) CHF exacerbation: Code(s): I50.9 - Heart failure, unspecified Status: Acute Assessment and Plan: Cardiology recommendations noted echocardiogram shows grade 2 diastolic dysfunction, [id number] mitral valve regurgitation and mild pulmonary hypertension. reasonable diuresis with current therapy It is not clear why she suddenly went into heart failure. This is , however, improved. (4) HTN (hypertension): Code(s): I10 - Essential (primary) hypertension Status: Chronic Assessment and Plan: Systolic is generous between 140 and 177. She is on carvedilol, furosemide, metolazone. At home she is on amlodipine and hydralazine as well. Will wait an additional day while we diurese. (5) Anemia: Code(s): D64.9 - Anemia, unspecified Status: Chronic Assessment and Plan: likely related to underlying CKD possibly exacerbated by MASSIMO and recent surgery(?) anemia studies with iron deficiency - hold IV iron given concern for infection (pneumonia) PRBC transfusion per protocol consider Epogen therapy Check CBC tomorrow (6) Diabetes: Code(s): E11.9 - Type 2 diabetes mellitus without complications Status: Chronic Assessment and Plan: On Accu-Cheks and sliding-scale insulin per hospitalist. Subjective Date/time seen: 09/03/21 10:46 Interval history: Patient is feeling better. Breathing is normal now. Swelling is gone. she slept well. Eating okay. Exam Narrative: General: large female in NAD Heart: normal S1 and S2; no rub or gallop Lungs: Mildly coarse at the bases Abdomen: soft, nontender, nondistended, positive bowel sounds Extremities: no cyanosis or clubbing; trace - 1+ edema Skin: No rash Objective Data Vital Signs Vital Signs: Vital Signs - 24 hr 09/02/21 12:00 09/02/21 12:10 09/02/21 14:08 Temperature 36.9 C Pulse Rate 66 71 66 Respiratory Rate 18 Blood Pressure 147/69 H Pulse Oximetry 93 93 09/02/21 15:33 09/02/21 16:00 09/02/21 18:24 Temperature Pulse Rate 77 66 71 Respiratory Rate Blood Pressure Pulse Oximetry 97 09/02/21 19:42 09/02/21 19:48 09/02/21 20:00 Temperature 36.1 C L Pulse Rate 71 67 Respiratory Rate 16 16 Blood Pressure 180/68 H Pulse Oximetry 96 96 09/02/21 22:10 09/03/21 00:00 09/03/21 04:00 Temperature Pulse Rate 65 65 61 Respiratory Rate Blood Pressure Pulse Oximetry 95 09/03/21 06:10 09/03/21 08:00 09/03/21 08:19 Temperature 36.5 C 36.7 C Pulse Rate 64 64 65 Respiratory Rate 15 16 Blood Pressure 156/82 H 176/55 H Pulse Oximetry 97 98 Intake/Output Intake/Output: Intake & Output 08/31/21 09/01/21 09/02/21 09/03/21 23:59 23:59 23:59 23:59 Intake Total 930 2395 1460 270 Output Total 600 1850 21
--- NOTE | 2021-09-03 11:26 | PM.PNCARD ---
Progress Note: A&P Assessment and Plan (1) Volume overload: Code(s): E87.70 - Fluid overload, unspecified Status: Acute Assessment and Plan: Patient has volume overload. No significant ?CHF in my opinion. She had worsening renal failure and her ejection fraction is normal. She does have some diastolic dysfunction but again I think that her volume status predominantly secondary to acute renal failure. She is significantly improving as her renal function also improves. Continue diuretics per Nephrology. (2) Acute kidney injury superimposed on CKD: Code(s): N17.9 - Acute kidney failure, unspecified; N18.9 - Chronic kidney disease, unspecified Status: Acute Assessment and Plan: Per Dr. Esquivel (3) HTN (hypertension): Code(s): I10 - Essential (primary) hypertension Status: Chronic Assessment and Plan: Above goal (4) CAD (coronary artery disease): Code(s): I25.10 - Atherosclerotic heart disease of [place] coronary artery without angina pectoris Status: Acute Assessment and Plan: No anginal symptoms. Elevated troponins are not secondary to acute plaque rupture/ACS (5) Anemia: Code(s): D64.9 - Anemia, unspecified Status: Chronic Subjective Date/time seen: 09/03/21 11:26 Interval history: 76-year-old with volume overload. History of CAD status post CABG and renal failure Date of service 09/03/2021: She is feeling better. Swelling Nearly gone. No chest pain shortness of breath at rest Review of Systems Constitutional: Constitutional: Reports no additional constitutional complaints Eyes: Eyes: Reports no additional eye complaints ENT: Reports system reviewed and no additional complaints, except as documented Cardiovascular: Cardiovascular: Reports as per HPI and Reports dyspnea Respiratory: Respiratory: Reports dyspnea Gastrointestinal: Gastrointestinal: Reports no additional gastrointestinal complaints Musculoskeletal: Musculoskeletal: Reports as per HPI and Reports arthralgias Integumentary/Breasts: Skin/Breast: Reports system reviewed and no additional complaints, except as docu Neurologic: Reports as per HPI Endocrine: Endocrine: Reports no additional endocrine complaints Hematologic/Lymphatic: Hematologic/Lymphatic: Reports no additional hematologic/lymphatic complaints Allergic/Immunologic: Allergic/Immunologic: Reports no additional allergic/immunologic complaints Exam Const: General: comfortable and no acute distress Other: Pleasant overweight white female no apparent distress. HENMT: Mouth: Yes moist mucous membranes Eyes: Sclera: sclerae normal Neck: Neck: supple and no JVD Resp: Effort & Inspection: normal respiratory effort Other: Crackles noted bilaterally Cardio: Rate: regular rate Rhythm: regular rhythm Other: No audible murmur or gallop GI: Auscultation: normal bowel sounds Skin: General skin exam: normal color Neuro: Cognition (Neuro): normal cognition Extrem: General: normal to inspection Other: Minimal edema at this time Psych: Appearance: grossly normal Objective Data Vital Signs Vital Signs: Vital Signs - 24 hr 09/02/21 12:00 09/02/21 12:10 09/02/21 14:08 Temperature 36.9 C Pulse Rate 66 71 66 Respiratory Rate 18 Blood Pressure 147/69 H Pulse Oximetry 93 93 09/02/21 15:33 09/02/21 16:00 09/02/21 18:24 Temperature Pulse Rate 77 66 71 Respiratory Rate Blood Pressure Pulse Oximetry 97 09/02/21 19:42 09/02/21 19:48 09/02/21 20:00 Temperature 36.1 C L Pulse Rate 71 67 Respiratory Rate 16 16 Blood Pressure 180/68 H Pulse Oximetry 96 96 09/02/21 22:10 09/03/21 00:00 09/03/21 04:00 Temperature Pulse Rate 65 65 61 Respiratory Rate Blood Pressure Pulse Oximetry 95 09/03/21 06:10 09/03/21 08:00 09/03/21 08:19 Temperature 36.5 C 36.7 C Pulse Rate 64 64 65 Respiratory Rate 15 16 Blood Pressure 156/82 H 176
--- NOTE | 2021-09-03 11:34 | PC.NURSE ---
On 09/03/21, the student, Susan Ruiz, provided care and completed [facility] documentation on this patient. I have reviewed the student's documentation and agree with the findings.
[2021-09-03 11:37] LABS: Glucose Point of Care 350 mg/dl (65-105)
[2021-09-03] MEDS: INSULIN ASPART (*BKC) 100 UNITS/ML SUB-Q ×2 (11:54→17:00)
--- NOTE | 2021-09-03 12:33 | PM.IMPN ---
Progress Note: A&P Assessment and Plan (1) CHF exacerbation: Code(s): I50.9 - Heart failure, unspecified Status: Acute Assessment and Plan: Acutely decompensated CHF, 2/2 volume overload from kidney disease Continue to diuresis with iv lasix consider dc in 1-2 days time (2) Acute kidney injury superimposed on CKD: Code(s): N17.9 - Acute kidney failure, unspecified; N18.9 - Chronic kidney disease, unspecified Status: Acute Assessment and Plan: Creat is [address] Esquivel rounding pt had renal uS continue to watch UO and follow BMP (3) HTN (hypertension): Code(s): I10 - Essential (primary) hypertension Status: Chronic Assessment and Plan: Bp is 180/40 continue to monitor (4) CAD (coronary artery disease): Code(s): I25.10 - Atherosclerotic heart disease of [place] coronary artery without angina pectoris Status: Acute Assessment and Plan: CAD s/p CABG and stents; no reports of chest pain. Cardiology rounding ECHO showed EF of 55% (5) Gout: Code(s): M10.9 - Gout, unspecified Status: Acute Assessment and Plan: Currently no evidence of acute exacerbation. continue allopurinol (6) Diabetes: Code(s): E11.9 - Type 2 diabetes mellitus without complications Status: Chronic Assessment and Plan: Accuchecks, SSI, sugars are 134 (7) Pneumonia: Code(s): J18.9 - Pneumonia, unspecified organism Status: Acute Assessment and Plan: On admission pt was presumed to have pneumonia started on IV antibitiocs Wcc are normal no fever I will dc IV abx today, I will rpt Cxr serge am Subjective Date/time seen: 09/03/21 12:33 Interval history: 76-year old lady with a past medical history including not limited to HTN, ASCVD, c/p CABG, stent, CKD, CHF, gout, recent right arm orthopedic procedure who is referred from an OSH after she was managed for CHF exacerbation; in consideration for her worsening kidney function, and poor response to diuretics, she was referred and accepted by our hospitalist department. Pt is currently being treated for CHF exacerbation ans is improving, feels better. Pt is on RA. Review of Systems Review of Systems: All systems reviewed & are unremarkable except as noted in HPI and below Exam Narrative: General: alert and oriented Neck: Trachea midline Lungs: BL decreased BS with some fine crackles Cardiac: Normal S1,S2, no MGR ABD0: soft, NT Ext:no edema Objective Data Vital Signs Vital Signs: Vital Signs - 24 hr 09/02/21 14:08 09/02/21 15:33 09/02/21 16:00 Temperature 36.9 C Pulse Rate 66 77 66 Respiratory Rate 18 Blood Pressure 147/69 H Pulse Oximetry 93 97 09/02/21 18:24 09/02/21 19:42 09/02/21 19:48 Temperature 36.1 C L Pulse Rate 71 71 Respiratory Rate 16 Blood Pressure 180/68 H Pulse Oximetry 96 09/02/21 20:00 09/02/21 22:10 09/03/21 00:00 Temperature Pulse Rate 67 65 65 Respiratory Rate 16 Blood Pressure Pulse Oximetry 96 95 09/03/21 04:00 09/03/21 06:10 09/03/21 08:00 Temperature 36.5 C Pulse Rate 61 64 64 Respiratory Rate 15 Blood Pressure 156/82 H Pulse Oximetry 97 09/03/21 08:19 09/03/21 11:23 09/03/21 12:00 Temperature 36.7 C 36.6 C Pulse Rate 65 62 63 Respiratory Rate 16 16 Blood Pressure 176/55 H 180/40 H Pulse Oximetry 98 97 Intake/Output Intake/Output: Intake & Output 08/31/21 09/01/21 09/02/21 09/03/21 23:59 23:59 23:59 23:59 Intake Total 930 2395 1460 270 Output Total 600 1850 2100 Balance 330 545 -640 270 Meds/Results Medications: Active Medications Generic Name Dose Route Start Last Admin Trade Name Freq PRN Reason Stop Dose Admin Acetaminophen/Codeine Phosphate 1 tab 08/31/21 13:46 Acetaminophen/Codeine (*Crx) 300/30 Mg Tablet PO Q4H PRN Pain (Scale Score 4-6) Allopurinol 150 mg 09/01/21 09:00 09/03/21 08:52 Allopurinol
[2021-09-03 16:16] LABS: Glucose Point of Care 212 mg/dl (65-105)
[2021-09-03 20:12] LABS: Glucose Point of Care 223 mg/dl (65-105)
[2021-09-03] MEDS: ATORVASTATIN 40 MG TABLET PO (20:13)
[2021-09-04] VITALS (14 sets, daily range): BP systolic 144–170; BP diastolic 40–74; PULSE 59–72; RESP 18; TEMP 36.6–37.1; O2SAT 92–98
[2021-09-04 05:51] LABS: Basophils Absolute Auto 0.1 K/mm3 (0.0-0.1); Basophils Percent Auto 0.6 % (0.2-1.2); Eosinophils Absolute Auto 0.4 K/mm3 (0-0.3); Eosinophils Percent Auto 3.5 % (0-4.4); Hematocrit 30.6 % (37.0-47.0); Hemoglobin 9.8 g/dL (12.0-15.0); Immature Granulocyte Absolute 0.12 K/mm3 (0.00-0.031); Immature Granulocyte Percent A 1.2 % (0-0.5); Lymphocytes Absolute Auto 1.61 K/mm3 (0.9-3.2); Lymphocytes Percent Auto 15.6 % (18.3-44.2); Mean Corpuscular Hemoglobin 28.1 pg (26-34); Mean Corpuscular Volume 87.7 fl (80-100); Mean Platelet Volume 9.3 fl (7.4-10.4); Monocytes Percent Auto 9.9 % (2.6-8.5); Neutrophils Absolute Auto 7.1 K/mm3 (1.3-6.7); Neutrophils Percent Auto 69.2 % (45.5-73.1); Platelet Count Result 242 k/mm3 (150-375); Red Blood Count 3.49 M/mm3 (4.2-5.4); Red Cell Distribution Width 16.2 % (11.5-14.5); White Blood Count 10.3 K/mm3 (4.5-10.0)
[2021-09-04 06:01] LABS: Albumin Level 3.1 g/dL (3.5-5.1); Anion Gap 8 mmol/L (8-16); Blood Urea Nitrogen 103 mg/dL (7-17); Calcium 8.1 mg/dL (8.4-10.2); Carbon Dioxide 27 mmol/L (22-30); Chloride 100 mmol/L (98-107); Estimated Glomerular Filt Rate 16; Glucose 149 mg/dL (65-110); Phosphorus 5.5 mg/dL (2.5-4.5); Sodium 135 mmol/L (137-145)
[2021-09-04 07:49] LABS: Glucose Point of Care 167 mg/dl (65-105)
--- NOTE | 2021-09-04 08:44 | PM.PNCARD ---
Progress Note: A&P Assessment and Plan (1) Volume overload: Code(s): E87.70 - Fluid overload, unspecified Status: Acute Assessment and Plan: Patient has volume overload. No significant ?CHF in my opinion. She had worsening renal failure and her ejection fraction is normal. She does have some diastolic dysfunction but again I think that her volume status predominantly secondary to acute renal failure. She is significantly improving as her renal function also improves. Will reduce her IV diuretics to furosemide 80 mg IV daily. Hopefully transition to oral diuretics tomorrow then discharge (2) Acute kidney injury superimposed on CKD: Code(s): N17.9 - Acute kidney failure, unspecified; N18.9 - Chronic kidney disease, unspecified Status: Acute Assessment and Plan: Per Dr. Esquivel: Improving and near baseline (3) HTN (hypertension): Code(s): I10 - Essential (primary) hypertension Status: Chronic Assessment and Plan: Above goal (4) CAD (coronary artery disease): Code(s): I25.10 - Atherosclerotic heart disease of [place] coronary artery without angina pectoris Status: Acute Assessment and Plan: No anginal symptoms. Elevated troponins are not secondary to acute plaque rupture/ACS (5) Anemia: Code(s): D64.9 - Anemia, unspecified Status: Chronic Subjective Date/time seen: 09/04/21 08:44 Interval history: 76-year-old with volume overload. History of CAD status post CABG and renal failure Date of service 09/03/2021: She is feeling better. Swelling Nearly gone. No chest pain shortness of breath at rest Date of service 09/04/2021: She feels good and wants to go home. No chest pain. No shortness of breath. Swelling is gone Review of Systems Constitutional: Constitutional: Reports no additional constitutional complaints Eyes: Eyes: Reports no additional eye complaints ENT: Reports system reviewed and no additional complaints, except as documented Cardiovascular: Cardiovascular: Reports as per HPI and Reports dyspnea Respiratory: Respiratory: Reports dyspnea Gastrointestinal: Gastrointestinal: Reports no additional gastrointestinal complaints Musculoskeletal: Musculoskeletal: Reports as per HPI and Reports arthralgias Integumentary/Breasts: Skin/Breast: Reports system reviewed and no additional complaints, except as docu Neurologic: Reports as per HPI Endocrine: Endocrine: Reports no additional endocrine complaints Hematologic/Lymphatic: Hematologic/Lymphatic: Reports no additional hematologic/lymphatic complaints Allergic/Immunologic: Allergic/Immunologic: Reports no additional allergic/immunologic complaints Exam Const: General: comfortable and no acute distress Other: Pleasant overweight white female no apparent distress. HENMT: Mouth: Yes moist mucous membranes Eyes: Sclera: sclerae normal Neck: Neck: supple and no JVD Resp: Effort & Inspection: normal respiratory effort Other: CTAB Cardio: Rate: regular rate Rhythm: regular rhythm Other: No audible murmur or gallop GI: Auscultation: normal bowel sounds Skin: General skin exam: normal color Neuro: Cognition (Neuro): normal cognition Extrem: General: normal to inspection Other: No edema at this time Psych: Appearance: grossly normal Objective Data Vital Signs Vital Signs: Vital Signs - 24 hr 09/03/21 11:23 09/03/21 12:00 09/03/21 16:00 Temperature 36.6 C Pulse Rate 62 63 61 Respiratory Rate 16 Blood Pressure 180/40 H Pulse Oximetry 97 09/03/21 16:25 09/03/21 20:00 09/03/21 23:34 Temperature 36.8 C Pulse Rate 64 65 Respiratory Rate 16 16 Blood Pressure 159/52 H Pulse Oximetry 96 96 96 09/04/21 00:00 09/04/21 00:10 09/04/21 00:27 Temperature 37.1 C Pulse Rate 64 66 63 Respiratory Rate 18 Blood Pressure 144/74 H Pulse Oximetry 93 92 09/04/21 02:46 09/04/21 04:00 09/04/21 08:40 Temperature 36.6 C
[2021-09-04] MEDS: allopurinoL 150 MG TABLET PO (08:57)
[2021-09-04] MEDS: carvediloL 25 MG TABLET PO ×2 (08:57→16:50)
[2021-09-04] MEDS: metOLazone 2.5 MG TABLET PO (08:57)
[2021-09-04] MEDS: FAMOTIDINE 20 MG TABLET PO (08:57)
[2021-09-04] MEDS: FUROSEMIDE INJ 100 MG/10 ML VIAL 80 MG IV PUSH (08:58)
--- NOTE | 2021-09-04 11:33 | PM.IMPN ---
Progress Note: A&P Assessment and Plan (1) CHF exacerbation: Code(s): I50.9 - Heart failure, unspecified Status: Acute Assessment and Plan: Acutely decompensated CHF, 2/2 volume overload from kidney disease Continue to diuresis with iv lasix consider dc tomorrow (2) Acute kidney injury superimposed on CKD: Code(s): N17.9 - Acute kidney failure, unspecified; N18.9 - Chronic kidney disease, unspecified Status: Acute Assessment and Plan: Creat is 2.8, continue to follow DR Esquivel rounding pt had renal US continue to watch UO and follow BMP (3) HTN (hypertension): Code(s): I10 - Essential (primary) hypertension Status: Chronic Assessment and Plan: Bp is 170/50 continue to monitor (4) CAD (coronary artery disease): Code(s): I25.10 - Atherosclerotic heart disease of [place] coronary artery without angina pectoris Status: Acute Assessment and Plan: CAD s/p CABG and stents; no reports of chest pain. Cardiology rounding ECHO showed EF of 55% (5) Gout: Code(s): M10.9 - Gout, unspecified Status: Acute Assessment and Plan: Currently no evidence of acute exacerbation. continue allopurinol (6) Diabetes: Code(s): E11.9 - Type 2 diabetes mellitus without complications Status: Chronic Assessment and Plan: Accuchecks, SSI, sugars are 134 (7) Pneumonia: Code(s): J18.9 - Pneumonia, unspecified organism Status: Acute Assessment and Plan: On admission pt was presumed to have pneumonia started on IV antibiotics Wcc are normal no fever Cxr showed pneumonia IV ABX continued Bc negative to date Subjective Date/time seen: 09/04/21 11:33 Interval history: 76-year old lady with a past medical history including not limited to HTN, ASCVD, c/p CABG, stent, CKD, CHF, gout, recent right arm orthopedic procedure who is referred from an OSH after she was managed for CHF exacerbation; in consideration for her worsening kidney function, and poor response to diuretics, she was referred and accepted by our hospitalist department. Pt is currently being treated for CHF exacerbation and is improving. 09/04/2021: Pt seen by cardiology, pt transitioned to IV lasix daily today, pt will go to oral lasix tomorrow and can be discharged. Review of Systems Review of Systems: All systems reviewed & are unremarkable except as noted in HPI and below Exam Narrative: General: alert and oriented Lungs: BL decreased BS with some fine crackles Cardiac: Normal S1,S2, no MGR ABD0: soft, NT Ext:no edema Psych: good mood R arm : with dressing recent surgery Objective Data Vital Signs Vital Signs: Vital Signs - 24 hr 09/03/21 12:00 09/03/21 16:00 09/03/21 16:25 Temperature 36.8 C Pulse Rate 63 61 64 Respiratory Rate 16 Blood Pressure 159/52 H Pulse Oximetry 96 09/03/21 20:00 09/03/21 23:34 09/04/21 00:00 Temperature Pulse Rate 65 64 Respiratory Rate 16 Blood Pressure Pulse Oximetry 96 96 09/04/21 00:10 09/04/21 00:27 09/04/21 02:46 Temperature 37.1 C Pulse Rate 66 63 62 Respiratory Rate 18 Blood Pressure 144/74 H Pulse Oximetry 93 92 94 09/04/21 04:00 09/04/21 08:00 09/04/21 08:40 Temperature 36.6 C Pulse Rate 59 L 64 59 L Respiratory Rate 18 Blood Pressure 170/52 H Pulse Oximetry 97 09/04/21 08:57 09/04/21 11:21 Temperature Pulse Rate 59 L Respiratory Rate Blood Pressure Pulse Oximetry 97 Intake/Output Intake/Output: Intake & Output 09/01/21 09/02/21 09/03/21 09/04/21 23:59 23:59 23:59 23:59 Intake Total 2395 1460 1050 780 Output Total 1850 2100 600 800 Balance 545 -640 450 -20 Meds/Results Medications: Active Medications Generic Name Dose Route Start Last Admin Trade Name Freq PRN Reason Stop Dose Admin Acetaminophen/Codeine Phosphate 1 tab 08/31/21 13:46 Acetaminophen/Codeine (*Crx) 300/30 Mg Tablet PO Q4H
[2021-09-04 11:41] LABS: Glucose Point of Care 361 mg/dl (65-105)
[2021-09-04] MEDS: INSULIN ASPART (*BKC) 100 UNITS/ML SUB-Q ×2 (11:50→16:51)
[2021-09-04 13:27] LABS: Haptoglobin 359 mg/dL (43-212)
[2021-09-04 16:29] LABS: Glucose Point of Care 217 mg/dl (65-105)
--- NOTE | 2021-09-04 18:14 | P.PNNP_ITS ---
Progress Note: A&P Assessment and Plan (1) MASSIMO (acute kidney injury): Code(s): N17.9 - Acute kidney failure, unspecified Status: Acute Assessment and Plan: * MASSIMO * evaluation to date: * renal ultrasound c/w CKD; no acute findings * CPK mildly elevated but not enough to affect kidney function * urine electrolytes non-prerenal * Because the creatinine is improving with active diuresis I suspect that this is renal venous hypertension causing her creatinine to be elevated in the presence of the volume overload. * BP is generous. Systolic is running between 140 and 177. * Getting IV diuretics plus metolazone. * her creatinine is getting better , in spite of ongoing IV diuretics. * her volume status is near normal. Her creatinine is near in usual baseline as well. Will switch to p.o. diuretics. I think she is okay to go home at any time. (2) Chronic kidney disease, stage IV (severe): Code(s): N18.4 - Chronic kidney disease, stage 4 (severe) Status: Chronic Assessment and Plan: * baseline creatinine 2.2 - 2.7mg/dl in the last year * based on outpatient evaluation, this is due to HTN, diabetes, vascular disease and age (3) CHF exacerbation: Code(s): I50.9 - Heart failure, unspecified Status: Acute Assessment and Plan: * Cardiology recommendations noted * echocardiogram shows grade 2 diastolic dysfunction, [id number] mitral valve regurgitation and mild pulmonary hypertension. * reasonable diuresis with current therapy * It is not clear why she suddenly went into heart failure. * improved. (4) HTN (hypertension): Code(s): I10 - Essential (primary) hypertension Status: Chronic Assessment and Plan: * Systolic is generous between 140 and 177. * She is on carvedilol, furosemide, metolazone. * Will restart her Hydralazine. (5) Anemia: Code(s): D64.9 - Anemia, unspecified Status: Chronic Assessment and Plan: * likely related to underlying CKD * possibly exacerbated by MASSIMO and recent surgery(?) * anemia studies with iron deficiency - hold IV iron given concern for infection (pneumonia) * Hemoglobin is stable at 9.8. * No need for Epogen (6) Diabetes: Code(s): E11.9 - Type 2 diabetes mellitus without complications Status: Chronic Assessment and Plan: * On Accu-Cheks and sliding-scale insulin per hospitalist. Subjective Date/time seen: 09/04/21 18:14 Interval history: Patient is feeling better. Breathing is normal now. Swelling is gone. in the room. She is eager for discharge soon. Exam Narrative: General: large female in NAD Heart: normal S1 and S2; no rub Lungs: Mildly coarse at the bases Abdomen: soft, nontender, nondistended, positive bowel sounds Extremities: no cyanosis or clubbing; trace - 1+ edema Skin: No rash or subcu nodules Objective Data Vital Signs Vital Signs: Vital Signs - 24 hr 09/03/21 20:00 09/03/21 23:34 09/04/21 00:00 Temperature Pulse Rate 65 64 Respiratory Rate 16 Blood Pressure Pulse Oximetry 96 96 09/04/21 00:10 09/04/21 00:27 09/04/21 02:46 Temperature 37.1 C Pulse Rate 66 63 62 Respiratory Rate 18 Blood Pressure 144/74 H Pulse Oximetry 93 92 94 09/04/21 04:00 03
--- NOTE | 2021-09-04 18:14 | PM.PNNEP ---
Progress Note: A&P Assessment and Plan (1) MASSIMO (acute kidney injury): Code(s): N17.9 - Acute kidney failure, unspecified Status: Acute Assessment and Plan: MASSIMO evaluation to date: renal ultrasound c/w CKD; no acute findings CPK mildly elevated but not enough to affect kidney function urine electrolytes non-prerenal Because the creatinine is improving with active diuresis I suspect that this is renal venous hypertension causing her creatinine to be elevated in the presence of the volume overload. BP is generous. Systolic is running between 140 and 177. Getting IV diuretics plus metolazone. her creatinine is getting better , in spite of ongoing IV diuretics. her volume status is near normal. Her creatinine is near in usual baseline as well. Will switch to p.o. diuretics. I think she is okay to go home at any time. (2) Chronic kidney disease, stage IV (severe): Code(s): N18.4 - Chronic kidney disease, stage 4 (severe) Status: Chronic Assessment and Plan: baseline creatinine 2.2 - 2.7mg/dl in the last year based on outpatient evaluation, this is due to HTN, diabetes, vascular disease and age (3) CHF exacerbation: Code(s): I50.9 - Heart failure, unspecified Status: Acute Assessment and Plan: Cardiology recommendations noted echocardiogram shows grade 2 diastolic dysfunction, [id number] mitral valve regurgitation and mild pulmonary hypertension. reasonable diuresis with current therapy It is not clear why she suddenly went into heart failure. improved. (4) HTN (hypertension): Code(s): I10 - Essential (primary) hypertension Status: Chronic Assessment and Plan: Systolic is generous between 140 and 177. She is on carvedilol, furosemide, metolazone. Will restart her Hydralazine. (5) Anemia: Code(s): D64.9 - Anemia, unspecified Status: Chronic Assessment and Plan: likely related to underlying CKD possibly exacerbated by MASSIMO and recent surgery(?) anemia studies with iron deficiency - hold IV iron given concern for infection (pneumonia) Hemoglobin is stable at 9.8. No need for Epogen (6) Diabetes: Code(s): E11.9 - Type 2 diabetes mellitus without complications Status: Chronic Assessment and Plan: On Accu-Cheks and sliding-scale insulin per hospitalist. Subjective Date/time seen: 09/04/21 18:14 Interval history: Patient is feeling better. Breathing is normal now. Swelling is gone. in the room. She is eager for discharge soon. Exam Narrative: General: large female in NAD Heart: normal S1 and S2; no rub Lungs: Mildly coarse at the bases Abdomen: soft, nontender, nondistended, positive bowel sounds Extremities: no cyanosis or clubbing; trace - 1+ edema Skin: No rash or subcu nodules Objective Data Vital Signs Vital Signs: Vital Signs - 24 hr 09/03/21 20:00 09/03/21 23:34 09/04/21 00:00 Temperature Pulse Rate 65 64 Respiratory Rate 16 Blood Pressure Pulse Oximetry 96 96 09/04/21 00:10 09/04/21 00:27 09/04/21 02:46 Temperature 37.1 C Pulse Rate 66 63 62 Respiratory Rate 18 Blood Pressure 144/74 H Pulse Oximetry 93 92 94 09/04/21 04:00 09/04/21 08:00 09/04/21 08:40 Temperature 36.6 C Pulse Rate 59 L 64 59 L Respiratory Rate 18 Blood Pressure 170/52 H Pulse Oximetry 97 09/04/21 08:57 09/04/21 11:21 09/04/21 14:40 Temperature 37.0 C Pulse Rate 59 L 64 Respiratory Rate 18 Blood Pressure 162/40 H Pulse Oximetry 97 97 09/04/21 16:50 Temperature Pulse Rate 68 Respiratory Rate Blood Pressure Pulse Oximetry Intake/Output Intake/Output: Intake & Output 09/01/21 09/02/21 09/03/21 09/04/21 23:59 23:59 23:59 23:59 Intake Total 2395 1460 1050 1260 Output Total 1850 2100 600 1400 Balance 545 640 450 -140 Meds/Results Medications: Active
[2021-09-04 20:17] LABS: Glucose Point of Care 225 mg/dl (65-105)
[2021-09-04] MEDS: ATORVASTATIN 40 MG TABLET PO (21:05)
[2021-09-05 00:06] VITALS: BP 165/60; PULSE 70; RESP 17; TEMP 36.7; O2SAT 99
[2021-09-05 03:12] VITALS: O2SAT 94
[2021-09-05 05:24] LABS: Basophils Absolute Auto 0.1 K/mm3 (0.0-0.1); Basophils Percent Auto 0.6 % (0.2-1.2); Eosinophils Absolute Auto 0.4 K/mm3 (0-0.3); Eosinophils Percent Auto 3.4 % (0-4.4); Hematocrit 33.5 % (37.0-47.0); Hemoglobin 10.7 g/dL (12.0-15.0); Immature Granulocyte Absolute 0.11 K/mm3 (0.00-0.031); Immature Granulocyte Percent A 0.9 % (0-0.5); Lymphocytes Absolute Auto 1.81 K/mm3 (0.9-3.2); Mean Corpuscular HGB Conc 31.9 g/dl (32-36); Mean Corpuscular Hemoglobin 27.7 pg (26-34); Mean Corpuscular Volume 86.8 fl (80-100); Mean Platelet Volume 9.2 fl (7.4-10.4); Monocytes Absolute Auto 1.1 K/mm3 (0.1-0.6); Monocytes Percent Auto 8.4 % (2.6-8.5); Neutrophils Absolute Auto 9.4 K/mm3 (1.3-6.7); Neutrophils Percent Auto 72.7 % (45.5-73.1); Platelet Count Result 270 k/mm3 (150-375); Red Blood Count 3.86 M/mm3 (4.2-5.4); Red Cell Distribution Width 16.1 % (11.5-14.5); White Blood Count 12.9 K/mm3 (4.5-10.0)
[2021-09-05 07:47] LABS: Glucose Point of Care 167 mg/dl (65-105)
[2021-09-05] MEDS: allopurinoL 150 MG TABLET PO (08:03)
[2021-09-05 08:04] VITALS: PULSE 78
[2021-09-05] MEDS: carvediloL 25 MG TABLET PO (08:04)
[2021-09-05] MEDS: FAMOTIDINE 20 MG TABLET PO (08:04)
[2021-09-05] MEDS: ASPIRIN 81 MG ENTERIC TABLET PO (08:04)
[2021-09-05] MEDS: AZITHROMYCIN 250 MG TABLET 500 MG PO (08:04)
[2021-09-05] MEDS: metOLazone 2.5 MG TABLET PO (08:04)
--- NOTE | 2021-09-05 09:12 | PM.PNCARD ---
Progress Note: A&P Assessment and Plan (1) Volume overload: Code(s): E87.70 - Fluid overload, unspecified Status: Acute Assessment and Plan: Patient has volume overload. No significant ?CHF in my opinion. She had worsening renal failure and her ejection fraction is normal. She does have some diastolic dysfunction but again I think that her volume status predominantly secondary to acute renal failure. She is significantly improving as her renal function also improves. DC IV furosemide. 40 mg p.o. furosemide daily. She is being discharged on metolazone but will need to make sure she is not becoming too dehydrated as an outpatient. She has a repeat basic metabolic panel in 1 week at will go to Dr. Esquivel (2) Acute kidney injury superimposed on CKD: Code(s): N17.9 - Acute kidney failure, unspecified; N18.9 - Chronic kidney disease, unspecified Status: Acute Assessment and Plan: Per Dr. Esquivel: Improving and near baseline (3) HTN (hypertension): Code(s): I10 - Essential (primary) hypertension Status: Chronic Assessment and Plan: Above goal (4) CAD (coronary artery disease): Code(s): I25.10 - Atherosclerotic heart disease of [place] coronary artery without angina pectoris Status: Acute Assessment and Plan: No anginal symptoms. Elevated troponins are not secondary to acute plaque rupture/ACS (5) Anemia: Code(s): D64.9 - Anemia, unspecified Status: Chronic Subjective Date/time seen: 09/05/21 09:12 Interval history: 76-year-old with volume overload. History of CAD status post CABG and renal failure Date of service 09/03/2021: She is feeling better. Swelling Nearly gone. No chest pain shortness of breath at rest Date of service 09/04/2021: She feels good and wants to go home. No chest pain. No shortness of breath. Swelling is gone Date of service 09/05/2021: She is doing well in going home. No chest pain, shortness of breath. Review of Systems Constitutional: Constitutional: Reports no additional constitutional complaints Eyes: Eyes: Reports no additional eye complaints ENT: Reports system reviewed and no additional complaints, except as documented Cardiovascular: Cardiovascular: Reports as per HPI and Reports dyspnea Respiratory: Respiratory: Reports dyspnea Gastrointestinal: Gastrointestinal: Reports no additional gastrointestinal complaints Musculoskeletal: Musculoskeletal: Reports as per HPI and Reports arthralgias Integumentary/Breasts: Skin/Breast: Reports system reviewed and no additional complaints, except as docu Neurologic: Reports as per HPI Endocrine: Endocrine: Reports no additional endocrine complaints Hematologic/Lymphatic: Hematologic/Lymphatic: Reports no additional hematologic/lymphatic complaints Allergic/Immunologic: Allergic/Immunologic: Reports no additional allergic/immunologic complaints Exam Const: General: comfortable and no acute distress Other: Pleasant overweight white female no apparent distress. HENMT: Mouth: Yes moist mucous membranes Eyes: Sclera: sclerae normal Neck: Neck: supple and no JVD Resp: Effort & Inspection: normal respiratory effort Other: CTAB Cardio: Rate: regular rate Rhythm: regular rhythm Other: No audible murmur or gallop GI: Auscultation: normal bowel sounds Skin: General skin exam: normal color Neuro: Cognition (Neuro): normal cognition Extrem: General: normal to inspection Other: No edema at this time Psych: Appearance: grossly normal Objective Data Vital Signs Vital Signs: Vital Signs - 24 hr 09/04/21 11:21 09/04/21 14:40 09/04/21 16:50 Temperature 37.0 C Pulse Rate 64 68 Respiratory Rate 18 Blood Pressure 162/40 H Pulse Oximetry 97 97 09/04/21 20:12 09/04/21 23:08 09/04/21 23:11 Temperature Pulse Rate 72 Respiratory Rate 18 Blood Pressure Pulse Oximetry 98 95 96 09/05/21 00:06 09/05/21 03:12 03
--- NOTE | 2021-09-05 10:34 | PM.DS ---
DS: Admitting Diagnosis Discharge Date 09/05/2021 Admitting Diagnosis MASSIMO on CKD stage 5 CHF exacerbation Hypertension Anemia Diabetes mellitus type 2 without complications DS: Discharge Diagnosis Discharge Diagnosis (1) CHF exacerbation: Code(s): I50.9 - Heart failure, unspecified Status: Acute Assessment and Plan: Acutely decompensated CHF, 2/2 volume overload from kidney disease Continue to diuresis with iv lasix consider dc tomorrow (2) Acute kidney injury superimposed on CKD: Code(s): N17.9 - Acute kidney failure, unspecified; N18.9 - Chronic kidney disease, unspecified Status: Acute Assessment and Plan: Creat is 2.8, continue to follow DR Esquivel rounding pt had renal US continue to watch UO and follow BMP (3) HTN (hypertension): Code(s): I10 - Essential (primary) hypertension Status: Chronic Assessment and Plan: Bp is 170/50 continue to monitor (4) CAD (coronary artery disease): Code(s): I25.10 - Atherosclerotic heart disease of [place] coronary artery without angina pectoris Status: Acute Assessment and Plan: CAD s/p CABG and stents; no reports of chest pain. Cardiology rounding ECHO showed EF of 55% (5) Gout: Code(s): M10.9 - Gout, unspecified Status: Acute Assessment and Plan: Currently no evidence of acute exacerbation. continue allopurinol (6) Diabetes: Code(s): E11.9 - Type 2 diabetes mellitus without complications Status: Chronic Assessment and Plan: Accuchecks, SSI, sugars are 134 (7) Pneumonia: Code(s): J18.9 - Pneumonia, unspecified organism Status: Acute Assessment and Plan: On admission pt was presumed to have pneumonia started on IV antibiotics Wcc are normal no fever Cxr showed pneumonia IV ABX continued Bc negative to date DS: Summary Hospital Course Reason for hospitalization: MASSIMO on CKD stage IV CHF exacerbation Diabetes mellitus type 2 Anemia Hospital Course: Patient is a 76-year-old female past medical history of hypertension, ASCVD, status post CABG, stent, CKD, CHF, gout and a recent right arm orthopedic procedure that was performed at [facility]. After the surgery was performed the patient was found to be in a CHF exacerbation and was diuresed with worsening renal function, poor response to the diuretics and therefore was referred by [facility] to our facility and our hospitalist team. Upon arrival to [facility] the patient reported that she was in her usual health until about 3 days ago. Patient reported shortness of breath since Thursday after her surgery to her right arm. Patient reports that she had a nerve block during the surgical intervention which created a low oxygen level. So she was kept under observation overnight until discharge. A chest x-ray revealed mild to moderate cardiomegaly with hazy bilateral opacities, right greater than left. The pattern represented a possible underlying pneumonia. Labs were significant for WBC 13.8, hemoglobin 7.6, hematocrit 24.2 and platelet 169. Patient had a sodium of 132, potassium 4.4, creatinine 3.9, BUN 90 and a glucose of 107. Patient had elevated CK at 1:55 a.m. and abnormal LFTs. Vital signs were essentially stable in their emergency department she was transferred to the floor. Patient was administered furosemide, Rocephin, azithromycin aspirin. Cardiology and Nephrology was consulted during the patient's hospitalization. Cardiology has been managing her multivessel coronary artery disease status post surgical revascularization for approximately 10 years. The patient has been fairly stable since without any new cardiac problems. Patient had an echocardiogram performed which revealed some diastolic function and an LV EF that is normal. She was thought not to be in a significant CHF exacerbation, however her volume status is predominantly secondary to acute renal failure. Therefore diuretics were
== END 2021-09-05 09:10 | disposition home or self-care (01) | DRG 682 ==
LOC: ANHIMU 09-01 14:35 → ANH3MED 09-02 14:16 → ANHIMU 09-06 11:13
PROVIDERS: Chiropractor; Internal Medicine; Internal Medicine Nephrology; Admitting Provider Internal Medicine; PCP Family Medicine; Visit Provider Nurse Practitioner Family
DX: N17.9 Acute kidney failure, unspecified (principal); J18.9 Pneumonia, unspecified organism; I13.2 Hypertensive heart and chronic kidney disease with heart failure and with stage 5 chronic kidney disease, or end stage renal disease; E87.70 Fluid overload, unspecified; N18.5 Chronic kidney disease, stage 5; I50.9 Heart failure, unspecified; I25.10 Atherosclerotic heart disease of native coronary artery without angina pectoris; M10.9 Gout, unspecified; E11.22 Type 2 diabetes mellitus with diabetic chronic kidney disease; D63.1 Anemia in chronic kidney disease; D50.9 Iron deficiency anemia, unspecified; Z79.82 Long term (current) use of aspirin; Z95.1 Presence of aortocoronary bypass graft; Z95.5 Presence of coronary angioplasty implant and graft; Z88.0 Allergy status to penicillin
CPT/HCPCS: 36415; 36430; 71045; 71046; 76775; 80048; 80053; 80069; 81001; 82306; 82550; 82570; 82607; 82746; 82948; 83010; 83540; 83550; 83605; 83735; 84100; 84300; 84443; 84484; 84540; 85025; 86850; 86900; 86901; 86920; 87040; 93005; 93306; A9270; J0456; J0696; J1815; J1940; J7050; J7060; P9016

== ENCOUNTER 2021-10-12 04:02 | Inpatient (IN) | payer MEDICARE, SELFPAY ==
[2021-10-12] VITALS (18 sets, daily range): BP systolic 130–187; BP diastolic 39–73; PULSE 56–71; RESP 16–20; TEMP 36.2–36.7; O2SAT 94–100
--- NOTE | 2021-10-12 04:07 | ADMGEN ---
This patient, Leidy Voss, was admitted to IMU Room 213-01 at 0357. Patient/family oriented to hospital policies and general routines including ID bracelet, bed and alarms, visiting hours, pain management, procedures, bathroom and other care routines, personal items, smoking policy, room service/diet, and visiting hours. Information on how to activate the Rapid Response Team has been discussed. Patient/Family are encouraged to report perceived risks to care and to ask questions if they do not understand what they are told or what they should do.
--- NOTE | 2021-10-12 04:34 | PM.IMHP ---
H&P: HPI History of Present Illness Date/Time: 10/12/21 04:34 Chief Complaint: 67 years old female with past medical history of CHF hypertension diabetes coronary artery disease status post CABG chronic kidney failure was transferred from [facility] ER where patient presented with back pain radiating to the neck dull in nature lasted for few minutes no aggravating or relieving factor resolved now associated with palpitation patient denies shortness of breath at the ER patient was found to have systolic blood pressure in 200 was given IV hydration EKG showed nonspecific changes of T-wave troponin was elevated chest x-ray was negative for pneumonia showed cardiomegaly white blood cells was mildly elevated patient denies fever chills shortness of breath or cough. Cardiology was consulted continue heparin drip Review of Systems Review of Systems: All systems reviewed & are unremarkable except as noted in HPI and below PMFSH Family History Family History Mother Diabetes mellitus Hypertension Acute myocardial infarction Father Cancer of bone Sibling Social History Social History Smoking status: Never smoker Alcohol intake: never Substance use: never Spiritual care concerns: No Meds Home Medications and Allergies Home Medications Medication Instructions Recorded Confirmed Type acetaminophen-codeine 1 tablet PO Q4H PRN 08/31/21 08/31/21 History allopurinol 150 mg PO DAILY 08/31/21 08/31/21 History aspirin 81 mg PO DAILY 08/31/21 10/12/21 History atorvastatin 40 mg PO HS 08/31/21 10/12/21 History carvedilol 25 mg PO BID 08/31/21 10/12/21 History famotidine [Pepcid AC] 20 mg PO DAILY 08/31/21 10/12/21 History furosemide 40 mg PO DAILY 08/31/21 10/12/21 History glimepiride 2 mg PO DAILY 08/31/21 08/31/21 History hydralazine 100 mg PO TID 08/31/21 10/12/21 History tramadol 50 mg PO Q6H PRN 08/31/21 08/31/21 History azithromycin [Zithromax] 500 mg PO DAILY 3 Days #6 tablet 09/05/21 Rx metolazone 2.5 mg PO QAM 30 Days #30 tablet 09/05/21 Rx Allergies Allergy/AdvReac Type Severity Reaction Status Date / Time metronidazole Allergy Severe Diarrhea Verified 06/14/18 10:48 carbamazepine Allergy Mild Itching Verified 06/14/18 10:48 hydrocodone Allergy Mild ITCHING Verified 06/14/18 10:48 Sulfa (Sulfonamide Allergy Mild ITCHING Verified 06/14/18 10:48 Antibiotics) terbinafine Allergy Mild MESSED UP Verified 06/14/18 10:48 BS AND BP triamterene Allergy Mild ITCH Verified 06/14/18 10:48 ciprofloxacin Allergy Unknown Unknown Verified 06/14/18 10:48 labetalol Allergy Unknown INCREASES Verified 06/14/18 10:48 BP Penicillins Allergy Unknown ITCHING Verified 06/14/18 10:48 tramadol Allergy Unknown HIVES Verified 06/14/18 10:48 Exam Const: General: no acute distress HENMT: Mouth: Yes moist mucous membranes Eyes: General: appearance normal, both eyes and all related structures Neck: Neck: supple Resp: Effort & Inspection: normal respiratory effort Auscultation: clear to auscultation bilaterally Cardio: Rate: regular rate Rhythm: regular rhythm GI: Inspection: non-distended GI Palp: Yes Soft to palpation, No Tenderness to palpation present (GI) and No Guarding due to palpation present (GI) Auscultation: normal bowel sounds Skin: General skin exam: normal color Neuro: Speech: normal speech Motor exam (neuro): 5/5 motor strength present throughout and Normal motor muscle tone present throughout Sensory Exam: normal sensation Extrem: General: normal to inspection Right upper extremity: normal to inspection Left upper extremity: normal to inspection Right lower extremity: normal to inspection and edema Left lower extremity: normal to inspection and edema Psych: Mental Status: mental status grossly normal Affect: normal affect Assessment and Plan Asse
[2021-10-12 05:10] LABS: Basophils Absolute Auto 0.1 K/mm3 (0.0-0.1); Basophils Percent Auto 0.4 % (0.2-1.2); Eosinophils Absolute Auto 0.2 K/mm3 (0-0.3); Eosinophils Percent Auto 1.8 % (0-4.4); Hematocrit 31.1 % (37.0-47.0); Hemoglobin 9.8 g/dL (12.0-15.0); Immature Granulocyte Absolute 0.06 K/mm3 (0.00-0.031); Immature Granulocyte Percent A 0.5 % (0-0.5); Lymphocytes Absolute Auto 2.22 K/mm3 (0.9-3.2); Lymphocytes Percent Auto 19.5 % (18.3-44.2); Mean Corpuscular HGB Conc 31.5 g/dl (32-36); Mean Corpuscular Hemoglobin 28.2 pg (26-34); Mean Corpuscular Volume 89.4 fl (80-100); Mean Platelet Volume 9.3 fl (7.4-10.4); Monocytes Absolute Auto 0.9 K/mm3 (0.1-0.6); Monocytes Percent Auto 7.7 % (2.6-8.5); Neutrophils Percent Auto 70.1 % (45.5-73.1); Platelet Count Result 172 k/mm3 (150-375); Red Blood Count 3.48 M/mm3 (4.2-5.4); Red Cell Distribution Width 16.4 % (11.5-14.5); White Blood Count 11.4 K/mm3 (4.5-10.0)
[2021-10-12 05:21] LABS: Cholesterol 140 mg/dL (0-200); HDL Direct 42 mg/dL; Prothrombin Time 13.1 Seconds (11.1-14.7); Triglycerides 128 mg/dL (<150)
[2021-10-12 05:22] LABS: Alanine Aminotransferase 15 U/L (4-35); Albumin Level 3.5 g/dL (3.5-5.1); Alkaline Phosphatase 101 U/L (38-126); Anion Gap 5 mmol/L (8-16); Aspartate Amino Transferase 55 U/L (14-36); Bilirubin,Total 0.5 mg/dL (0.2-1.3); Blood Urea Nitrogen 68 mg/dL (7-17); Calcium 8.9 mg/dL (8.4-10.2); Carbon Dioxide 26 mmol/L (22-30); Chloride 103 mmol/L (98-107); Estimated Glomerular Filt Rate 17; Glucose 126 mg/dL (65-110); Partial Thromboplastin Time 76.1 SECONDS (22.3-36.8); Potassium 4.6 mmol/L (3.4-5.0); Sodium 134 mmol/L (137-145)
[2021-10-12 05:31] LABS: LDL Cholesterol Direct 59 mg/dL
[2021-10-12] MEDS: HEPARIN SOD/D5W 100 UNITS/ML 25,000 UNITS/250 ML BAG 6 UNITS IV CONT (05:59)
[2021-10-12 06:59] LABS: Hemoglobin A1C 5.9 % (<5.7)
--- NOTE | 2021-10-12 07:30 | ECG_ITS ---
Measurements Intervals [place] Rate: 62 P: 46 AL: 202 QRS: 20 QRSD: 84 T: 36 QT: 395 QTc: 404 Interpretive Statements SINUS RHYTHM MINIMAL ST DEPRESSION [0.025+ mV ST DEPRESSION] COMPARED TO ECG 08/31/2021 18:16:46 ST (T WAVE) DEVIATION NOW PRESENT Electronically Signed On 10-13-2021 6:51:29 CDT by Pily Diaz M.D.
[2021-10-12 08:13] LABS: Glucose Point of Care 105 mg/dl (65-105)
[2021-10-12] MEDS: FAMOTIDINE 20 MG TABLET PO (09:09)
[2021-10-12] MEDS: FUROSEMIDE 40 MG TABLET PO (09:09)
[2021-10-12] MEDS: hydrALAZINE HCL 50 MG TABLET 100 MG PO ×3 (09:10→17:29)
[2021-10-12] MEDS: carvediloL 25 MG TABLET PO ×2 (09:10→17:30)
[2021-10-12] MEDS: ASPIRIN 81 MG CHEWABLE TABLET PO (09:11)
--- NOTE | 2021-10-12 10:30 | ECG_ITS ---
Measurements Intervals [place] Rate: 56 P: 9 CO: 198 QRS: 6 QRSD: 88 T: 48 QT: 483 QTc: 470 Interpretive Statements SINUS BRADYCARDIA MODERATE T-WAVE ABNORMALITY, CONSIDER LATERAL ISCHEMIA [-0.1+ mV T WAVE IN I/aVL/V5/V6] COMPARED TO ECG 10/12/2021 07:08:41 SINUS BRADYCARDIA NOW PRESENT Electronically Signed On 10-13-2021 6:53:00 CDT by Pily Diaz M.D.
[2021-10-12 11:18] LABS: Partial Thromboplastin Time 47.1 SECONDS (22.3-36.8)
[2021-10-12] MEDS: HEPARIN SODIUM 5,000 UNITS/ML VIAL 4000 UNITS IV PUSH (12:11)
[2021-10-12 12:21] LABS: Glucose Point of Care 111 mg/dl (65-105)
--- NOTE | 2021-10-12 13:46 | PM.CNCAR ---
Assessment and Plan Additional Plan NSTEMI Hx of CABG 2011 HTN and DM CKD stage III and Hx of MASSIMO Hx of HFpEF and mild to moderate MR Plan Heparin infusion [facility] on [place] and hydration in advance (careful hydration giving Hx of CHF), consult nephrology ASA statin B-julio cesar, lasix and hydralazine Add plavix 300 mg today then 75 mg daily Add PPI History of Present Illness History of Present Illness Consult date/time: 10/12/21 13:46 Consult reason: Other (elevated trop ) Reason For Visit: NSTEMI Narrative: patient with HX of CAD and prior CABG in 2011, presented with episode of upper back pain, moderate, aching, non radiating happened yesterday, followed by episoide of palpitations rapid irregular, not associated with dizziness or syncope. No precipitating or relieving factors. She had Hx of ACS in 2011 but pain was different. She had Hx of CKD. Review of Systems Review of Systems: All systems reviewed & are unremarkable except as noted in HPI and below PMFSH Family History Family History Mother Diabetes mellitus Hypertension Acute myocardial infarction Father Cancer of bone Sibling Social History Social History Smoking status: Never smoker Alcohol intake: never Substance use: never Spiritual care concerns: No Meds Home Medications and Allergies Home Medications Medication Instructions Recorded Confirmed Type allopurinol 150 mg PO DAILY 08/31/21 10/12/21 History aspirin 81 mg PO DAILY 08/31/21 10/12/21 History atorvastatin 40 mg PO HS 08/31/21 10/12/21 History carvedilol 25 mg PO BID 08/31/21 10/12/21 History famotidine [Pepcid AC] 20 mg PO DAILY 08/31/21 10/12/21 History furosemide 40 mg PO DAILY 08/31/21 10/12/21 History glimepiride 2 mg PO DAILY 08/31/21 10/12/21 History hydralazine 100 mg PO TID 08/31/21 10/12/21 History Allergies Allergy/AdvReac Type Severity Reaction Status Date / Time metronidazole Allergy Severe Diarrhea Verified 06/14/18 10:48 carbamazepine Allergy Mild Itching Verified 06/14/18 10:48 hydrocodone Allergy Mild ITCHING Verified 06/14/18 10:48 Sulfa (Sulfonamide Allergy Mild ITCHING Verified 06/14/18 10:48 Antibiotics) terbinafine Allergy Mild MESSED UP Verified 06/14/18 10:48 BS AND BP triamterene Allergy Mild ITCH Verified 06/14/18 10:48 ciprofloxacin Allergy Unknown Unknown Verified 06/14/18 10:48 labetalol Allergy Unknown INCREASES Verified 06/14/18 10:48 BP Penicillins Allergy Unknown ITCHING Verified 06/14/18 10:48 tramadol Allergy Unknown HIVES Verified 06/14/18 10:48 Vital Signs Vital Signs - 24 hr 10/12/21 04:00 10/12/21 04:05 10/12/21 04:16 Temperature 36.3 C L Pulse Rate 67 67 62 Respiratory Rate 16 16 Blood Pressure 187/56 H Pulse Oximetry 98 98 10/12/21 05:41 10/12/21 08:00 10/12/21 08:09 Temperature 36.2 C L Pulse Rate 63 64 Respiratory Rate 18 Blood Pressure 151/39 H Pulse Oximetry 99 98 10/12/21 08:53 10/12/21 09:10 10/12/21 10:00 Temperature Pulse Rate 60 57 L 61 Respiratory Rate Blood Pressure Pulse Oximetry 94 10/12/21 12:00 Temperature 36.5 C Pulse Rate 58 L Respiratory Rate 20 Blood Pressure 181/51 H Pulse Oximetry 100 Exam Const: General: comfortable and no acute distress Other: Able to lie flat HENMT: General nose exam: Normal nares present and no epistaxis Mouth: Yes moist mucous membranes Eyes: Sclera: sclerae normal Pupils: Equal, round and reactive pupils present Neck: Neck: supple and no JVD Carotids: no bruits Chest: Other: scar of prior sternotomy Resp: Auscultation: clear to auscultation bilaterally and lung sounds not diminished Other: No chest wall tenderness Cardio: Rate: regular rate Rhythm: regular rhythm Heart sounds: no gallops, no murmurs and no rubs GI: GI Palp: Yes Soft to pa
[2021-10-12] MEDS: CLOPIDOGREL BISULFATE 300 MG TABLET PO (14:12)
--- NOTE | 2021-10-12 14:18 | PM.IMPN ---
Progress Note: A&P Assessment and Plan (1) Anemia: Code(s): D64.9 - Anemia, unspecified Status: Chronic Assessment and Plan: Probably anemia of chronic disease transfuse if hemoglobin below 7 monitor No signs of bleeding (2) Chronic kidney disease, stage IV (severe): Code(s): N18.4 - Chronic kidney disease, stage 4 (severe) Status: Chronic Assessment and Plan: Continue to monitor, avoid nephrotoxic (3) Diabetes: Code(s): E11.9 - Type 2 diabetes mellitus without complications Status: Chronic Assessment and Plan: Associated with nephropathy Hold oral hypoglycemic medication Give insulin sliding scale Monitor (4) Gout: Code(s): M10.9 - Gout, unspecified Status: Acute Assessment and Plan: 1 allopurinol pending home medication reconciliation (5) CAD (coronary artery disease): Code(s): I25.10 - Atherosclerotic heart disease of [place] coronary artery without angina pectoris Status: Acute Assessment and Plan: Status post CABG 2011 Aspirin statin (6) HTN (hypertension): Code(s): I10 - Essential (primary) hypertension Status: Chronic Assessment and Plan: Presented with hypertensive urgency treated with IV hydralazine in the ER Continue home medication Added p.r.n. hydralazine (7) Chest pain: Code(s): R07.9 - Chest pain, unspecified Status: Acute Assessment and Plan: Associated with elevated troponin with peak at 9.8. Symptoms correlate for non ST-elevation [place] Heparin drip Aspirin Statin Coreg P.r.n. nitro Cardiology consulted [facility] planned on Thursday and started on Plavix (8) Congestive heart failure: Code(s): I50.9 - Heart failure, unspecified Status: Acute Assessment and Plan: Ejection fraction 55% on recent echocardiogram in 08/2021 currently well compensated Additional Plan Leukocytosis most likely reactive chest x-ray is negative patient does not have urinary symptoms Subjective Date/time seen: 10/12/21 14:18 Interval history: HPI:67 years old female with past medical history of CHF hypertension diabetes coronary artery disease status post CABG chronic kidney failure was transferred from [facility] ER where patient presented with back pain radiating to the neck dull in nature lasted for few minutes no aggravating or relieving factor resolved now associated with palpitation patient denies shortness of breath at the ER patient was found to have systolic blood pressure in 200 was given IV hydration EKG showed nonspecific changes of T-wave troponin was elevated chest x-ray was negative for pneumonia showed cardiomegaly white blood cells was mildly elevated patient denies fever chills shortness of breath or cough. Cardiology was consulted continue heparin drip 10/12/2021 feels well no chest pain no shortness of breath. No abdominal pain and nausea vomiting Review of Systems Review of Systems: All systems reviewed & are unremarkable except as noted in HPI and below Exam Narrative: Const: General: no acute distress HENMT: Mouth: Yes moist mucous membranes Eyes: General: appearance normal, both eyes and all related structures Neck: Neck: supple Resp: Effort & Inspection: normal respiratory effort Auscultation: clear to auscultation bilaterally Cardio: Rate: regular rate Rhythm: regular rhythm GI: Inspection: non-distended GI Palp: Yes Soft to palpation, No Tenderness to palpation present (GI) and No Guarding due to palpation present (GI) Auscultation: normal bowel sounds Skin: General skin exam: normal color Neuro: Speech: normal speech Motor exam (neuro): 5/5 motor strength present throughout and Normal motor muscle tone present throughout Sensory Exam: normal sensation Extrem: General: normal to inspection Right upper extremity: normal to inspection Left upper extremity: normal to inspection Right lower extremity: normal to inspection and ale
[2021-10-12 17:14] LABS: Glucose Point of Care 180 mg/dl (65-105)
[2021-10-12 18:38] LABS: Partial Thromboplastin Time 126.2 SECONDS (22.3-36.8)
[2021-10-12] MEDS: ATORVASTATIN 40 MG TABLET PO (20:00)
[2021-10-12 20:41] LABS: Glucose Point of Care 176 mg/dl (65-105)
[2021-10-13] VITALS (25 sets, daily range): BP systolic 138–193; BP diastolic 43–70; PULSE 54–70; RESP 16–20; TEMP 36.3–36.7; O2SAT 94–99
[2021-10-13 01:43] LABS: Partial Thromboplastin Time 65.6 SECONDS (22.3-36.8)
[2021-10-13] MEDS: HEPARIN SODIUM 5,000 UNITS/ML VIAL 2000 UNITS IV PUSH (02:37)
[2021-10-13 04:44] LABS: Basophils Absolute Auto 0.1 K/mm3 (0.0-0.1); Basophils Percent Auto 0.7 % (0.2-1.2); Eosinophils Absolute Auto 0.3 K/mm3 (0-0.3); Eosinophils Percent Auto 2.6 % (0-4.4); Hematocrit 28.9 % (37.0-47.0); Hemoglobin 8.9 g/dL (12.0-15.0); Immature Granulocyte Absolute 0.04 K/mm3 (0.00-0.031); Immature Granulocyte Percent A 0.4 % (0-0.5); Lymphocytes Percent Auto 20.7 % (18.3-44.2); Mean Corpuscular HGB Conc 30.8 g/dl (32-36); Mean Corpuscular Hemoglobin 28.5 pg (26-34); Mean Corpuscular Volume 92.6 fl (80-100); Mean Platelet Volume 9.7 fl (7.4-10.4); Monocytes Absolute Auto 0.9 K/mm3 (0.1-0.6); Monocytes Percent Auto 8.6 % (2.6-8.5); Neutrophils Absolute Auto 7.1 K/mm3 (1.3-6.7); Platelet Count Result 166 k/mm3 (150-375); Red Blood Count 3.12 M/mm3 (4.2-5.4); Red Cell Distribution Width 16.4 % (11.5-14.5); White Blood Count 10.6 K/mm3 (4.5-10.0)
[2021-10-13 05:02] LABS: Alanine Aminotransferase 13 U/L (4-35); Alkaline Phosphatase 81 U/L (38-126); Anion Gap 7 mmol/L (8-16); Aspartate Amino Transferase 32 U/L (14-36); Bilirubin,Total 0.5 mg/dL (0.2-1.3); Blood Urea Nitrogen 70 mg/dL (7-17); Calcium 8.1 mg/dL (8.4-10.2); Carbon Dioxide 25 mmol/L (22-30); Chloride 103 mmol/L (98-107); Estimated Glomerular Filt Rate 15; Glucose 100 mg/dL (65-110); Magnesium 1.7 mg/dL (1.6-2.3); Potassium 4.4 mmol/L (3.4-5.0); Sodium 135 mmol/L (137-145)
[2021-10-13 07:16] LABS: Glucose Point of Care 113 mg/dl (65-105)
[2021-10-13] MEDS: ASPIRIN 81 MG CHEWABLE TABLET PO (08:53)
[2021-10-13] MEDS: allopurinoL 150 MG TABLET PO (08:53)
[2021-10-13] MEDS: carvediloL 25 MG TABLET PO ×2 (08:54→17:37)
[2021-10-13] MEDS: hydrALAZINE HCL 50 MG TABLET 100 MG PO ×3 (08:54→17:37)
[2021-10-13] MEDS: FAMOTIDINE 20 MG TABLET PO (08:54)
[2021-10-13] MEDS: FUROSEMIDE 40 MG TABLET PO (08:55)
[2021-10-13] MEDS: ISOSORBIDE MONONITRATE 60 MG TAB.ER.24H PO (08:55)
[2021-10-13 09:23] LABS: Partial Thromboplastin Time 93.4 SECONDS (22.3-36.8)
[2021-10-13 11:25] LABS: Glucose Point of Care 225 mg/dl (65-105)
[2021-10-13] MEDS: INSULIN ASPART (*BKC) 100 UNITS/ML SUB-Q (11:40)
[2021-10-13] MEDS: HEPARIN SOD/D5W 100 UNITS/ML 25,000 UNITS/250 ML BAG 8 UNITS IV CONT (11:45)
--- NOTE | 2021-10-13 13:06 | PM.IMPN ---
Progress Note: A&P Assessment and Plan (1) Anemia: Code(s): D64.9 - Anemia, unspecified Status: Chronic Assessment and Plan: Probably anemia of chronic disease transfuse if hemoglobin below 7 monitor No signs of bleeding (2) Chronic kidney disease, stage IV (severe): Code(s): N18.4 - Chronic kidney disease, stage 4 (severe) Status: Chronic Assessment and Plan: Continue to monitor, avoid nephrotoxic Consult nephrology With planned catheterization need to monitor renal function closely (3) Diabetes: Code(s): E11.9 - Type 2 diabetes mellitus without complications Status: Chronic Assessment and Plan: Associated with nephropathy Hold oral hypoglycemic medication Give insulin sliding scale Monitor (4) Gout: Code(s): M10.9 - Gout, unspecified Status: Acute Assessment and Plan: Allopurinol (5) CAD (coronary artery disease): Code(s): I25.10 - Atherosclerotic heart disease of [place] coronary artery without angina pectoris Status: Acute Assessment and Plan: Status post CABG 2011 Aspirin statin (6) HTN (hypertension): Code(s): I10 - Essential (primary) hypertension Status: Chronic Assessment and Plan: Presented with hypertensive urgency treated with IV hydralazine in the ER Continue home medication Added p.r.n. hydralazine (7) Chest pain: Code(s): R07.9 - Chest pain, unspecified Status: Acute Assessment and Plan: Associated with elevated troponin with peak at 9.8. Symptoms correlate for non ST-elevation [place] Heparin drip Aspirin Statin Coreg P.r.n. nitro Cardiology consulted [facility] planned on Thursday and started on Plavix (8) Congestive heart failure: Code(s): I50.9 - Heart failure, unspecified Status: Acute Assessment and Plan: Ejection fraction 55% on recent echocardiogram in 08/2021 currently well compensated Additional Plan Leukocytosis most likely reactive chest x-ray is negative patient does not have urinary symptoms Subjective Date/time seen: 10/13/21 13:06 Interval history: HPI:67 years old female with past medical history of CHF hypertension diabetes coronary artery disease status post CABG chronic kidney failure was transferred from [facility] ER where patient presented with back pain radiating to the neck dull in nature lasted for few minutes no aggravating or relieving factor resolved now associated with palpitation patient denies shortness of breath at the ER patient was found to have systolic blood pressure in 200 was given IV hydration EKG showed nonspecific changes of T-wave troponin was elevated chest x-ray was negative for pneumonia showed cardiomegaly white blood cells was mildly elevated patient denies fever chills shortness of breath or cough. Cardiology was consulted continue heparin drip 10/12/2021 feels well no chest pain no shortness of breath. No abdominal pain and nausea vomiting 10/13/2021 feels well family at bedside no chest pain or shortness of breath. Remains on heparin drip. Review of Systems Review of Systems: All systems reviewed & are unremarkable except as noted in HPI and below Exam Narrative: Const: General: no acute distress HENMT: Mouth: Yes moist mucous membranes Eyes: General: appearance normal, both eyes and all related structures Neck: Neck: supple Resp: Effort & Inspection: normal respiratory effort Auscultation: clear to auscultation bilaterally Cardio: Rate: regular rate Rhythm: regular rhythm GI: Inspection: non-distended GI Palp: Yes Soft to palpation, No Tenderness to palpation present (GI) and No Guarding due to palpation present (GI) Auscultation: normal bowel sounds Skin: General skin exam: normal color Neuro: Speech: normal speech Motor exam (neuro): 5/5 motor strength present throughout and Normal motor muscle tone present throughout Sensory Exam: normal sensation Extrem: General: normal t
--- NOTE | 2021-10-13 13:23 | PM.PNCARD ---
Progress Note: A&P Additional Plan NSTEMI Hx of CABG 2012 HTN and DM CKD stage III and Hx of MASSIMO Hx of HFpEF and mild to moderate MR Plan Heparin infusion LHC on [place] and hydration in advance (careful hydration giving Hx of CHF), consult nephrology ASA statin B-julio cesar, lasix and hydralazine Add plavix 300 mg today then 75 mg daily Add PPI Subjective Date/time seen: 10/13/21 13:23 Interval history: no acute events Review of Systems Review of Systems: All systems reviewed & are unremarkable except as noted in HPI and below Exam Const: General: comfortable and no acute distress Other: Able to lie flat HENMT: General nose exam: Normal nares present and no epistaxis Mouth: Yes moist mucous membranes Eyes: Sclera: sclerae normal Pupils: Equal, round and reactive pupils present Neck: Neck: supple and no JVD Carotids: no bruits Resp: Auscultation: clear to auscultation bilaterally and lung sounds not diminished Other: No chest wall tenderness Cardio: Rate: regular rate Rhythm: regular rhythm Heart sounds: no gallops, no murmurs and no rubs GI: GI Palp: Yes Soft to palpation and No Tenderness to palpation present (GI) Auscultation: normal bowel sounds Skin: General skin exam: normal color, rashes and/or lesions noted and no erythema Other: Warm Neuro: Cranial nerves: Yes Equal, round and reactive pupils present Speech: normal speech Other: No obvious focal deficit or facial asymmetry Extrem: General: no edema Other: Normal capillary refills Intact distal pulses. Objective Data Vital Signs Vital Signs: Vital Signs - 24 hr 10/12/21 14:00 10/12/21 16:00 10/12/21 17:30 Temperature 36.2 C L Pulse Rate 63 64 64 Respiratory Rate 18 Blood Pressure 149/50 H Pulse Oximetry 97 10/12/21 19:47 10/12/21 20:00 10/12/21 22:00 Temperature 36.7 C Pulse Rate 71 63 58 L Respiratory Rate 20 20 Blood Pressure 140/43 L Pulse Oximetry 98 98 10/12/21 23:07 10/12/21 23:21 10/13/21 00:00 Temperature 36.6 C Pulse Rate 59 L 59 L 62 Respiratory Rate 20 20 Blood Pressure 130/73 Pulse Oximetry 95 95 10/13/21 01:28 10/13/21 03:12 10/13/21 03:31 Temperature 36.4 C Pulse Rate 65 55 L 56 L Respiratory Rate 16 Blood Pressure 154/70 H Pulse Oximetry 96 99 10/13/21 03:32 10/13/21 04:00 10/13/21 05:41 Temperature Pulse Rate 56 L 58 L 57 L Respiratory Rate 16 Blood Pressure Pulse Oximetry 99 10/13/21 08:00 10/13/21 08:54 10/13/21 10:00 Temperature 36.7 C Pulse Rate 54 L 70 58 L Respiratory Rate 18 Blood Pressure 168/53 H Pulse Oximetry 97 10/13/21 11:49 10/13/21 11:50 10/13/21 12:00 Temperature 36.7 C Pulse Rate 58 L 59 L 57 L Respiratory Rate 16 16 Blood Pressure 138/43 L Pulse Oximetry 96 99 Intake/Output Intake/Output: Intake & Output 10/10/21 10/11/21 10/12/21 10/13/21 23:59 23:59 23:59 23:59 Intake Total 695 590 Output Total 1650 450 Balance -955 140 Meds/Results Medications: Active Medications Generic Name Dose Route Start Last Admin Trade Name Freq PRN Reason Stop Dose Admin Acetaminophen 650 mg 10/12/21 04:30 Acetaminophen 325 Mg Tablet PO Q4H PRN Mild Pain (1-3) Al Hydrox/Mg Hydrox/Simethicone 30 ml 10/12/21 04:30 Mag Hydrox/Al Hydrox/Simeth 30 Ml Udc PO Q6H PRN Indigestion Allopurinol 150 mg 10/12/21 09:00 10/13/21 08:53 Allopurinol 150 Mg Tablet PO 150 mg DAILY@0800 [facility] Administration Aspirin 81 mg 10/12/21 08:00 10/13/21 08:53 Aspirin 81 Mg Chewable Tablet PO 81 mg DAILY@0800 [facility] Administration Atorvastatin Calcium 40 mg 10/12/21 21:00 10/12/21 20:00 Atorvastatin 40 Mg Tablet PO 40 mg HS [facility] Administration Carvedilol 25 mg 10/12/21 08:00 10/13/21 08:54 Carvedilol 25 Mg Tablet PO 25 mg BIDWM [facility] Administration Clopidogrel Bisulfate 75 mg 10/13/21 13:10 Clopidogrel Bisulfate 75 Mg [facility]
[2021-10-13] MEDS: CLOPIDOGREL BISULFATE 75 MG TABLET PO (15:12)
[2021-10-13 15:45] LABS: Partial Thromboplastin Time 76.8 SECONDS (22.3-36.8)
[2021-10-13 17:40] LABS: Glucose Point of Care 169 mg/dl (65-105)
[2021-10-13] MEDS: hydrALAZINE HCL 20 MG/ML VIAL 10 MG IV PUSH (19:15)
[2021-10-13 19:55] LABS: Glucose Point of Care 158 mg/dl (65-105)
[2021-10-13] MEDS: ATORVASTATIN 40 MG TABLET PO (20:39)
[2021-10-13] MEDS: SODIUM CHLORIDE 0.9% IV 1,000 ML 50 ML IV CONT (20:39)
[2021-10-14] VITALS (19 sets, daily range): BP systolic 161–193; BP diastolic 43–59; PULSE 55–98; RESP 13–18; TEMP 36.4–36.6; O2SAT 93–99
--- NOTE | 2021-10-14 | ECHO_ITS ---
Patient Info Name: Leidy Voss Age: 76 years : 1945 Gender: Female Ht: 59 in Wt: 148 lbs BSA: 1.70 m2 HR: 59 bpm BP: 167 / 59 mmHg Heart Rhythm: Sinus Rhythm Technical Quality: Fair Exam Date: 10/14/2021 7:28 AM Exam Location: [facility] Patient Status: Inpatient Admit Date: 10/13/2021 Staff Ordering Physician: Carlin Salas MD Recreational Therapy Technician: Dotty Terrell RDCS Attending Provider: Adi Echavarria MD Exam Type: CA echo doppler color flow Study Info Indications - NSTEMI Complete two-dimensional, color flow and Doppler transthoracic echocardiogram is performed. Summary 1. Complete two-dimensional, color flow and Doppler transthoracic echocardiogram is performed. 2. Left ventricular chamber dimension is normal. 3. Left ventricular systolic function is normal, estimated at 65-70%. 4. There is mildly increased left ventricular wall thickness. 5. The left ventricular diastolic function is grade II diastolic dysfunction. 6. The basal inferior wall is akinetic. 7. The apical inferior wall, mid inferior wall, basal inferolateral wall, and mid inferolateral wall are hypokinetic. 8. Left atrial chamber dimension is mildly enlarged. 9. There is mild to moderate mitral valve regurgitation. 10. There is mild tricuspid valve regurgitation. 11. Mild pulmonary hypertension, estimated pulmonary arterial systolic pressure is 42 mmHg. 12. There is mild pulmonic regurgitation. 13. There is small pericardial effusion. Left Ventricle Left ventricular chamber dimension is normal. Left ventricular systolic function is normal, estimated at 65-70%. There is mildly increased left ventricular wall thickness. The left ventricular diastolic function is grade II diastolic dysfunction. The basal inferior wall is akinetic. The apical inferior wall, mid inferior wall, basal inferolateral wall, and mid inferolateral wall are hypokinetic. All other elizondo appear normal. Right Ventricle Right ventricular chamber dimension is normal. Right ventricular systolic function is normal. Left Atria Left atrial chamber dimension is mildly enlarged. Right Atria Right atrial chamber dimension is normal. Atrial Septum Intact interatrial septum visualized by color flow imaging. Aortic Valve The aortic valve is trileaflet. There is mild aortic valve sclerosis. There is no aortic valve stenosis. There is trace aortic valve regurgitation. Pulmonic Valve The pulmonic valve is normal. There is no pulmonic valve stenosis. There is mild pulmonic regurgitation. Mitral Valve The mitral valve has normal leaflets. There is no mitral valve stenosis. There is mild to moderate mitral valve regurgitation. Tricuspid Valve The tricuspid valve leaflets are normal. There is no significant tricuspid valve stenosis. There is mild tricuspid valve regurgitation. Mild pulmonary hypertension, estimated pulmonary arterial systolic pressure is 42 mmHg. Pericardium/Pleural The pericardium appears normal. There is small pericardial effusion. Aorta The aortic root size at the sinus of Valsalva is normal. Left Ventricular Outflow Tract Name Value Normal LVOT 2D LVOT Diameter 3.0 cm
[2021-10-14 04:46] LABS: Basophils Percent Auto 0.4 % (0.2-1.2); Eosinophils Absolute Auto 0.2 K/mm3 (0-0.3); Eosinophils Percent Auto 2.5 % (0-4.4); Hematocrit 26.7 % (37.0-47.0); Hemoglobin 8.3 g/dL (12.0-15.0); Immature Granulocyte Absolute 0.04 K/mm3 (0.00-0.031); Immature Granulocyte Percent A 0.4 % (0-0.5); Lymphocytes Absolute Auto 2.01 K/mm3 (0.9-3.2); Mean Corpuscular HGB Conc 31.1 g/dl (32-36); Mean Corpuscular Hemoglobin 28.6 pg (26-34); Mean Corpuscular Volume 92.1 fl (80-100); Mean Platelet Volume 9.9 fl (7.4-10.4); Monocytes Absolute Auto 0.9 K/mm3 (0.1-0.6); Monocytes Percent Auto 9.3 % (2.6-8.5); Neutrophils Absolute Auto 6.4 K/mm3 (1.3-6.7); Neutrophils Percent Auto 66.4 % (45.5-73.1); Platelet Count Result 150 k/mm3 (150-375); Red Cell Distribution Width 16.2 % (11.5-14.5); White Blood Count 9.6 K/mm3 (4.5-10.0)
[2021-10-14 05:02] LABS: Alanine Aminotransferase 12 U/L (4-35); Alkaline Phosphatase 79 U/L (38-126); Anion Gap 6 mmol/L (8-16); Aspartate Amino Transferase 27 U/L (14-36); Bilirubin,Total 0.3 mg/dL (0.2-1.3); Blood Urea Nitrogen 68 mg/dL (7-17); Calcium 7.9 mg/dL (8.4-10.2); Carbon Dioxide 25 mmol/L (22-30); Chloride 101 mmol/L (98-107); Estimated Glomerular Filt Rate 15; Glucose 130 mg/dL (65-110); Sodium 132 mmol/L (137-145)
[2021-10-14 05:05] LABS: Partial Thromboplastin Time 101.3 SECONDS (22.3-36.8)
[2021-10-14] MEDS: carvediloL 25 MG TABLET PO ×2 (08:46→17:36)
[2021-10-14] MEDS: ASPIRIN 81 MG CHEWABLE TABLET PO (08:46)
[2021-10-14] MEDS: allopurinoL 150 MG TABLET PO (08:46)
[2021-10-14 08:47] LABS: Glucose Point of Care 136 mg/dl (65-105)
[2021-10-14] MEDS: ISOSORBIDE MONONITRATE 60 MG TAB.ER.24H PO (08:47)
[2021-10-14] MEDS: FAMOTIDINE 20 MG TABLET PO (08:47)
[2021-10-14] MEDS: hydrALAZINE HCL 50 MG TABLET 100 MG PO ×3 (08:47→17:37)
[2021-10-14] MEDS: CLOPIDOGREL BISULFATE 75 MG TABLET PO (08:53)
[2021-10-14] MEDS: hydrALAZINE HCL 20 MG/ML VIAL 10 MG IV PUSH ×2 (08:53→21:09)
--- NOTE | 2021-10-14 09:37 | PM.PNCARD ---
Progress Note: A&P Assessment and Plan (1) Non-ST elevation myocardial infarction (NSTEMI): Code(s): I21.4 - Non-ST elevation (NSTEMI) myocardial infarction Status: Acute Assessment and Plan: Patient did have a significant non ST-elevation myocardial infarction. She has some dynamic high lateral ST and T-wave changes noted on EKGs from 2 days ago. Will repeat an EKG now. She is no longer having any symptoms of chest pain, shoulder pain or palpitations. Will continue heparin, aspirin, statin, clopidogrel, carvedilol. Will consult Nephrology (2) Hypertension associated with diabetes: Code(s): E11.59 - Type 2 diabetes mellitus with other circulatory complications; I15.2 - Hypertension secondary to endocrine disorders Status: Acute Assessment and Plan: Fluctuating. Continue current meds. (3) Acute kidney injury superimposed on CKD: Code(s): N17.9 - Acute kidney failure, unspecified; N18.9 - Chronic kidney disease, unspecified Status: Acute Assessment and Plan: As detailed above, will consult Nephrology prior to catheterization (4) Volume overload: Code(s): E87.70 - Fluid overload, unspecified Status: Acute (5) CAD (coronary artery disease): Code(s): I25.10 - Atherosclerotic heart disease of [place] coronary artery without angina pectoris Status: Acute Assessment and Plan: Known disease: CABG in 2011 at [facility]. Catheterization either later today or tomorrow Subjective Date/time seen: 10/14/21 09:37 Interval history: 76-year-old admitted for palpitations back pain shoulder pain, non-STEMI Date of service 10/14/2021: She feels fairly decent today. She has no chest pain, shoulder pain, back pain. No palpitations at this point. Review of Systems Review of Systems: All systems reviewed & are unremarkable except as noted in HPI and below Constitutional: Constitutional: Denies weakness Eyes: Eyes: Denies blurry vision ENT: Reports Normal hearing present Cardiovascular: Cardiovascular: Denies chest pain Respiratory: Respiratory: Denies dyspnea Gastrointestinal: Gastrointestinal: Denies abdominal pain Genitourinary: Genitourinary: Denies flank pain Musculoskeletal: Musculoskeletal: Denies neck pain Integumentary/Breasts: Skin/Breast: Denies dry skin Neurologic: Denies headache(s) Psychiatric: Psychiatric: Denies anxiety Endocrine: Endocrine: Denies change in body appearance Hematologic/Lymphatic: Hematologic/Lymphatic: Denies easy bleeding Allergic/Immunologic: Allergic/Immunologic: Denies GI upset with certain foods Exam Const: General: comfortable and no acute distress Other: Able to lie flat HENMT: General nose exam: Normal nares present and no epistaxis Mouth: Yes moist mucous membranes Eyes: Sclera: sclerae normal Pupils: Equal, round and reactive pupils present Neck: Neck: supple and no JVD Carotids: no bruits Resp: Auscultation: clear to auscultation bilaterally and lung sounds not diminished Other: No chest wall tenderness Cardio: Rate: regular rate Rhythm: regular rhythm Heart sounds: no gallops, no murmurs and no rubs GI: Auscultation: normal bowel sounds Skin: General skin exam: normal color, rashes and/or lesions noted and no erythema Other: Warm Neuro: Cranial nerves: Yes Equal, round and reactive pupils present Speech: normal speech Other: No obvious focal deficit or facial asymmetry Extrem: General: no edema Other: Normal capillary refills Intact distal pulses. Objective Data Vital Signs Vital Signs: Vital Signs - 24 hr 10/13/21 10:00 10/13/21 11:49 10/13/21 11:50 Temperature 36.7 C Pulse Rate 58 L 58 L 59 L Respiratory Rate 16 16 Blood Pressure 138/43 L Pulse Oximetry 96 99 10/13/21 12:00 10/13/21 14:00 10/13/21 15:16 Temperature Pulse Rate 57 L 63 58 L Respiratory Rate 16 Blood Pressure Pulse Oximetry 94 10/13/21 16:00 10/13/21 17:3
--- NOTE | 2021-10-14 09:42 | ECG_ITS ---
Measurements Intervals [place] Rate: 56 P: 24 ID: 191 QRS: 3 QRSD: 87 T: 31 QT: 466 QTc: 451 Interpretive Statements SINUS BRADYCARDIA ST AND T ABNORMALITY SUGGESTIVE OF RECENT INFERIOR INJURY ABNORMAL ECG COMPARED TO ECG 10/12/2021 10:39:17 NO SIGNIFICANT CHANGES Electronically Signed On 10-14-2021 15:36:57 CDT by Perez Lepe M.D.
--- NOTE | 2021-10-14 12:23 | PM.CNNEP ---
Assessment and Plan Assessment and plan (1) Chronic kidney disease, stage IV (severe): Code(s): N18.4 - Chronic kidney disease, stage 4 (severe) Status: Chronic Assessment and Plan: creatinine had been running 2.2 - 2.7mg/dl in the last year however, since last hospitalization, now running closer to 2.8 - 3.0mg/dl based on outpatient evaluation, this is due to HTN, diabetes, vascular disease and age (2) Non-ST elevation myocardial infarction (NSTEMI): Code(s): I21.4 - Non-ST elevation (NSTEMI) myocardial infarction Status: Acute Assessment and Plan: Cardiology following continue current medical therapy likely to need cardiac catheterization for definitive treatment at risk for contrast nephropathy (3) HTN (hypertension): Code(s): I10 - Essential (primary) hypertension Status: Chronic Assessment and Plan: reasonable control follow trend of hemodynamics (4) Anemia: Code(s): D64.9 - Anemia, unspecified Status: Chronic Assessment and Plan: likely related to underlying CKD consider Epogen therapy follow H/H (5) Diabetes: Code(s): E11.9 - Type 2 diabetes mellitus without complications Status: Chronic Assessment and Plan: follow accuchecks glycemic control Long extensive discussion (> 20 minutes) with the patient as well as her at bedside regarding her advanced kidney disease as well as the likely necessity for a cardiac catheterization with the potential consequences of contrast nephropathy and/or worsening of her overall kidney function. They are aware there is a possibility that this could push her kidney function to the point of renal replacement therapy/dialysis but they are also well aware of the consequences of no intervention if she does indeed have significant coronary artery disease that does require treatment. The tentative plan is for IV fluid hydration overnight in the hopes that this optimize his her renal function to better tolerate the contrast exposure for the planned cardiac catheterization tomorrow. Will continue to follow. History of Present Illness Reason for Consult Consult date: 10/14/21 Reason for consult: chronic renal failure Chief Complaint Chief complaint: NSTEMI Review of Systems Review of Systems: As per HPI. [facility] Family History Family History Mother Diabetes mellitus Hypertension Acute myocardial infarction Father Cancer of bone Sibling Social History Social History Smoking status: Never smoker Alcohol intake: never Substance use: never Spiritual care concerns: No Meds Home Medications and Allergies Home Medications Medication Instructions Recorded Confirmed Type allopurinol 150 mg PO DAILY 08/31/21 10/12/21 History aspirin 81 mg PO DAILY 08/31/21 10/12/21 History atorvastatin 40 mg PO HS 08/31/21 10/12/21 History carvedilol 25 mg PO BID 08/31/21 10/12/21 History famotidine [Pepcid AC] 20 mg PO DAILY 08/31/21 10/12/21 History furosemide 40 mg PO DAILY 08/31/21 10/12/21 History glimepiride 2 mg PO DAILY 08/31/21 10/12/21 History hydralazine 100 mg PO TID 08/31/21 10/12/21 History Allergies Allergy/AdvReac Type Severity Reaction Status Date / Time metronidazole Allergy Severe Diarrhea Verified 06/14/18 10:48 carbamazepine Allergy Mild Itching Verified 06/14/18 10:48 hydrocodone Allergy Mild ITCHING Verified 06/14/18 10:48 Sulfa (Sulfonamide Allergy Mild ITCHING Verified 06/14/18 10:48 Antibiotics) terbinafine Allergy Mild MESSED UP Verified 06/14/18 10:48 BS AND BP triamterene Allergy Mild ITCH Verified 06/14/18 10:48 ciprofloxacin Allergy Unknown Unknown Verified 06/14/18 10:48 labetalol Allergy Unknown INCREASES Verified 06/14/18 10:48 BP Penicillins Allergy Unknown ITCHING Yvan
[2021-10-14 12:33] LABS: Glucose Point of Care 152 mg/dl (65-105)
[2021-10-14] MEDS: NITROGLYCERIN SL 0.4 MG TABLET SUBLINGUAL (12:47)
--- NOTE | 2021-10-14 12:51 | ECG_ITS ---
Measurements Intervals [place] Rate: 60 P: 59 [place]: 192 QRS: 7 QRSD: 86 T: 60 QT: 443 QTc: 446 Interpretive Statements SINUS RHYTHM ST AND T ABNORMALITY CONSIDER RECENT INFERIOR INJURY COMPARED TO ECG 10/14/2021 09:54:35 COMPARED WITH EARLIER TODAY NO DIFFERENT Electronically Signed On 10-14-2021 15:44:35 CDT by Perez Lepe M.D.
--- NOTE | 2021-10-14 16:05 | PM.IMPN ---
Progress Note: A&P Assessment and Plan (1) Anemia: Code(s): D64.9 - Anemia, unspecified Status: Chronic Assessment and Plan: Probably anemia of chronic disease transfuse if hemoglobin below 7 monitor No signs of bleeding (2) Chronic kidney disease, stage IV (severe): Code(s): N18.4 - Chronic kidney disease, stage 4 (severe) Status: Chronic Assessment and Plan: Continue to monitor, avoid nephrotoxic Consult nephrology With planned catheterization need to monitor renal function closely Renal protection protocol (3) Diabetes: Code(s): E11.9 - Type 2 diabetes mellitus without complications Status: Chronic Assessment and Plan: Associated with nephropathy Hold oral hypoglycemic medication Give insulin sliding scale Monitor (4) Gout: Code(s): M10.9 - Gout, unspecified Status: Acute Assessment and Plan: Allopurinol (5) CAD (coronary artery disease): Code(s): I25.10 - Atherosclerotic heart disease of [place] coronary artery without angina pectoris Status: Acute Assessment and Plan: Status post CABG 2011 Aspirin statin (6) HTN (hypertension): Code(s): I10 - Essential (primary) hypertension Status: Chronic Assessment and Plan: Presented with hypertensive urgency treated with IV hydralazine in the ER Continue home medication Added p.r.n. hydralazine (7) Chest pain: Code(s): R07.9 - Chest pain, unspecified Status: Acute Assessment and Plan: Associated with elevated troponin with peak at 9.8. Symptoms correlate for non ST-elevation [place] Heparin drip Aspirin Statin Coreg P.r.n. nitro Cardiology consulted [facility] planned on Thursday and started on Plavix. Had chest pain this morning with no new EKG change. However concerning given the nature. though medical management but have been planned with this new chest pain invasive intervention might be indicated. Notify the Cardiology (8) Congestive heart failure: Code(s): I50.9 - Heart failure, unspecified Status: Acute Assessment and Plan: Ejection fraction 55% on recent echocardiogram in 08/2021 currently well compensated Additional Plan Leukocytosis most likely reactive chest x-ray is negative patient does not have urinary symptoms Subjective Date/time seen: 10/14/21 16:05 Interval history: HPI:67 years old female with past medical history of CHF hypertension diabetes coronary artery disease status post CABG chronic kidney failure was transferred from [facility] ER where patient presented with back pain radiating to the neck dull in nature lasted for few minutes no aggravating or relieving factor resolved now associated with palpitation patient denies shortness of breath at the ER patient was found to have systolic blood pressure in 200 was given IV hydration EKG showed nonspecific changes of T-wave troponin was elevated chest x-ray was negative for pneumonia showed cardiomegaly white blood cells was mildly elevated patient denies fever chills shortness of breath or cough. Cardiology was consulted continue heparin drip 10/12/2021 feels well no chest pain no shortness of breath. No abdominal pain and nausea vomiting 10/13/2021 feels well family at bedside no chest pain or shortness of breath. Remains on heparin drip. 10/14/2021 had some tooth pain earlier today later had left-sided chest pain which is pressure-like sensation with associated shortness of breath improved the nitro. Evaluated with EKG which did not show any new acute changes. Review of Systems Review of Systems: All systems reviewed & are unremarkable except as noted in HPI and below Exam Narrative: Const: General: no acute distress HENMT: Mouth: Yes moist mucous membranes Eyes: General: appearance normal, both eyes and all related structures Neck: Neck: supple Resp: Effort & Inspection: normal respiratory effort Auscultation: clear to auscultation bila
[2021-10-14 16:43] LABS: Glucose Point of Care 125 mg/dl (65-105)
[2021-10-14 21:03] LABS: Glucose Point of Care 199 mg/dl (65-105)
[2021-10-14] MEDS: ATORVASTATIN 40 MG TABLET PO (21:03)
[2021-10-14] MEDS: HEPARIN SOD/D5W 100 UNITS/ML 25,000 UNITS/250 ML BAG 8 UNITS IV CONT (21:04)
[2021-10-15] VITALS (36 sets, daily range): BP systolic 147–213; BP diastolic 39–69; PULSE 53–92; RESP 14–22; TEMP 36.3–36.8; O2SAT 92–100
[2021-10-15] MEDS: SODIUM CHLORIDE 0.9% IV 1,000 ML 100 ML IV CONT (04:34)
--- NOTE | 2021-10-15 05:46 | ECG_ITS ---
Measurements Intervals [place] Rate: 70 P: 17 SC: 191 QRS: 31 QRSD: 90 T: 55 QT: 430 QTc: 465 Interpretive Statements SINUS RHYTHM POSSIBLE ANTERIOR MYOCARDIAL INFARCTION , OF INDETERMINATE AGE Electronically Signed On 10-15-2021 9:03:36 CDT by Sha Wu M.D.
[2021-10-15] MEDS: NITROGLYCERIN SL 0.4 MG TABLET SUBLINGUAL ×2 (05:52→06:00)
[2021-10-15 06:11] LABS: Basophils Absolute Auto 0.1 K/mm3 (0.0-0.1); Basophils Percent Auto 0.5 % (0.2-1.2); Eosinophils Absolute Auto 0.3 K/mm3 (0-0.3); Eosinophils Percent Auto 2.8 % (0-4.4); Hematocrit 28.3 % (37.0-47.0); Hemoglobin 8.5 g/dL (12.0-15.0); Immature Granulocyte Absolute 0.05 K/mm3 (0.00-0.031); Immature Granulocyte Percent A 0.5 % (0-0.5); Lymphocytes Absolute Auto 1.88 K/mm3 (0.9-3.2); Mean Corpuscular Hemoglobin 28.5 pg (26-34); Mean Platelet Volume 9.7 fl (7.4-10.4); Monocytes Absolute Auto 0.8 K/mm3 (0.1-0.6); Monocytes Percent Auto 8.8 % (2.6-8.5); Neutrophils Absolute Auto 6.3 K/mm3 (1.3-6.7); Neutrophils Percent Auto 67.4 % (45.5-73.1); Platelet Count Result 160 k/mm3 (150-375); Red Blood Count 2.98 M/mm3 (4.2-5.4); Red Cell Distribution Width 16.3 % (11.5-14.5); White Blood Count 9.4 K/mm3 (4.5-10.0)
--- NOTE | 2021-10-15 06:14 | PC.NURSE ---
Patient called nurse into room with complaints of back pain and chest pressure of 10/10 with SOB. Sats 94-95% on RA. Patient was in SR in the 70-80's. EKG done and nitro SL given x [address] Steele informed of event and results of EKG and he states to apply nitro paste and if that is not helpful to give 5mg IV metoprolol x 1. Orders read back and verified. Will continue to monitor patient closely.
[2021-10-15 06:17] LABS: Alanine Aminotransferase 12 U/L (4-35); Alkaline Phosphatase 85 U/L (38-126); Anion Gap 7 mmol/L (8-16); Aspartate Amino Transferase 24 U/L (14-36); Bilirubin,Total 0.3 mg/dL (0.2-1.3); Blood Urea Nitrogen 66 mg/dL (7-17); Calcium 8.1 mg/dL (8.4-10.2); Carbon Dioxide 23 mmol/L (22-30); Chloride 106 mmol/L (98-107); Estimated Glomerular Filt Rate 16; Glucose 136 mg/dL (65-110); Potassium 4.3 mmol/L (3.4-5.0); Sodium 136 mmol/L (137-145)
[2021-10-15 06:18] LABS: Partial Thromboplastin Time 59.5 SECONDS (22.3-36.8)
[2021-10-15] MEDS: NITROGLYCERIN OINTMENT 1 INCH DOSE TRANSDERM (06:26)
[2021-10-15] MEDS: HEPARIN SODIUM 5,000 UNITS/ML VIAL 2000 UNITS IV PUSH ×2 (06:33→22:33)
[2021-10-15 07:19] LABS: Glucose Point of Care 145 mg/dl (65-105)
[2021-10-15] MEDS: carvediloL 25 MG TABLET PO ×2 (07:50→17:53)
[2021-10-15] MEDS: hydrALAZINE HCL 50 MG TABLET 100 MG PO ×3 (07:51→17:52)
[2021-10-15] MEDS: FAMOTIDINE 20 MG TABLET PO (07:51)
[2021-10-15] MEDS: allopurinoL 150 MG TABLET PO (07:52)
[2021-10-15] MEDS: ASPIRIN 81 MG CHEWABLE TABLET PO (07:52)
[2021-10-15] MEDS: ISOSORBIDE MONONITRATE 60 MG TAB.ER.24H PO (07:52)
[2021-10-15] MEDS: CLOPIDOGREL BISULFATE 75 MG TABLET PO (07:52)
--- NOTE | 2021-10-15 08:52 | WPDMODSED ---
Moderate Sedation Note-Pt Data Patient Data Allergies Allergy/AdvReac Type Severity Reaction Status Date / Time metronidazole Allergy Severe Diarrhea Verified 06/14/18 10:48 carbamazepine Allergy Mild Itching Verified 06/14/18 10:48 hydrocodone Allergy Mild ITCHING Verified 06/14/18 10:48 Sulfa (Sulfonamide Allergy Mild ITCHING Verified 06/14/18 10:48 Antibiotics) terbinafine Allergy Mild MESSED UP Verified 06/14/18 10:48 BS AND BP triamterene Allergy Mild ITCH Verified 06/14/18 10:48 ciprofloxacin Allergy Unknown Unknown Verified 06/14/18 10:48 labetalol Allergy Unknown INCREASES Verified 06/14/18 10:48 BP Penicillins Allergy Unknown ITCHING Verified 06/14/18 10:48 tramadol Allergy Unknown HIVES Verified 06/14/18 10:48 Home Medications Medication Instructions Recorded Confirmed Type allopurinol 150 mg PO DAILY 08/31/21 10/12/21 History aspirin 81 mg PO DAILY 08/31/21 10/12/21 History atorvastatin 40 mg PO HS 08/31/21 10/12/21 History carvedilol 25 mg PO BID 08/31/21 10/12/21 History famotidine [Pepcid AC] 20 mg PO DAILY 08/31/21 10/12/21 History furosemide 40 mg PO DAILY 08/31/21 10/12/21 History glimepiride 2 mg PO DAILY 08/31/21 10/12/21 History hydralazine 100 mg PO TID 08/31/21 10/12/21 History Current Medications: Active Medications Acetaminophen (Acetaminophen 325 Mg Tablet) 650 mg PO Q4H PRN PRN Reason: Mild Pain (1-3) Al Hydrox/Mg Hydrox/Simethicone (Mag Hydrox/Al Hydrox/Simeth 30 Ml Udc) 30 ml PO Q6H PRN PRN Reason: Indigestion Allopurinol (Allopurinol 150 Mg Tablet) 150 mg PO DAILY@0800 [facility] Last Admin: 10/15/21 07:52 Dose: 150 mg Documented by: Aspirin (Aspirin 81 Mg Chewable Tablet) 81 mg PO DAILY@0800 [facility] Last Admin: 10/15/21 07:52 Dose: 81 mg Documented by: Atorvastatin Calcium (Atorvastatin 40 Mg Tablet) 40 mg PO [facility] Last Admin: 10/14/21 21:03 Dose: 40 mg Documented by: Carvedilol (Carvedilol 25 Mg Tablet) 25 mg PO BIDWM [facility] Last Admin: 10/15/21 07:50 Dose: 25 mg Documented by: Clopidogrel Bisulfate (Clopidogrel Bisulfate 75 Mg Tablet) 75 mg PO QAM [facility] Last Admin: 10/15/21 07:52 Dose: 75 mg Documented by: Dextrose (Dextrose 50% 25 Gm/50 Ml Syringe) 12.5 gm IV PUSH PRN PRN; Protocol PRN Reason: Hypoglycemia Famotidine (Famotidine 20 Mg Tablet) 20 mg PO DAILY [facility] Last Admin: 10/15/21 07:51 Dose: 20 mg Documented by: Furosemide (Furosemide 40 Mg Tablet) 40 mg PO DAILY [facility] Last Admin: 10/13/21 08:55 Dose: 40 mg Documented by: Glucagon (Glucagon For Inj 1 Mg Vial) 1 mg IM PRN PRN; Protocol PRN Reason: Hypoglycemia Glucose (Glucose Oral Gel 15 Gm Of Glucse In 37.5 Gm Tube) 15 gm PO PRN PRN; Protocol PRN Reason: Hypoglycemia Heparin Sodium (Porcine) (Heparin Sodium 5,000 Units/Ml Vial) 2,000 units IV PUSH PRN PRN PRN Reason: aPTT 55 - 70 seconds Last Admin: 10/15/21 06:33 Dose: 2,000 units Documented by: Heparin Sodium (Porcine) (Heparin Sodium 5,000 Units/Ml Vial) 4,000 units IV PUSH PRN PRN PRN Reason: aPTT less than 55 seconds Last Admin: 10/12/21 12:11 Dose: 4,000 units Documented by: Hydralazine HCl (Hydralazine Hcl 50 Mg Tablet) 100 mg PO TIDWM [facility] Last Admin: 10/15/21 07:51 Dose: 100 mg Documented by: Hydralazine HCl (Hydralazine Hcl 20 Mg/Ml Vial) 10 mg IV PUSH Q6H PRN PRN Reason: Hypertension Last Admin: 10/14/21 21:09 Dose: 10 mg Documented by: Heparin Sodium/Dextrose (Heparin Sodium/D5w 100 Units/Ml) 25,000 units in 250 mls @ 9 mls/hr IV CONT .Q24H [facility]; Protocol Last Titration: 10/15/21 06:35 Dose: 900 units/hr, 9 mls/hr Documented by: Dextrose (Dextrose 5% 1,000 Ml) 1,000 mls @ 100 mls/hr IVPB PRN PRN; Protocol PRN Reason: Hypoglycemia Sodium Chloride (Normal Saline Iv) 1,000 mls @ 100 mls/hr IV CONT .Q10H [facility] Last Admin: 10/15/21 04:34 Dose: 100 mls/hr Documented by: Insulin Aspart (Insulin Aspart (*Bkc) 100 Units/Ml) 2 - 5 units SUB-Q TIDWM [facility]; Protocol Last Admin: 10/15/21 07:51 Dose: Not Given Docu
--- NOTE | 2021-10-15 08:58 | WPDHPUPDATE1 ---
History and Physical Update Update Date/Time: 10/15/21 08:58 History and Physical has been reviewed, including an updated exam of the patient. There are NO changes in the patient's condition. Risks, benefits, and alternatives have been discussed and questions answered. Patient agrees to proceed with procedure.
--- NOTE | 2021-10-15 10:04 | WPDCARDPROC ---
Cardiac Cath Procedure Note Date of procedure:: 10/15/21 Performing physician:: Sha Wu MD Procedure Procedure note:: LEFT HEART CATHETERIZATION AND CORONARY ANGIOGRAM REPORT DATE OF PROCEDURE: 10/15/2021 INDICATION FOR PROCEDURE: Non ST-elevation myocardial infarction BRIEF CLINICAL HISTORY: 76-year-old female with multiple medical problems -CAD, history of CABG x4 on 11/14/2011 at [facility] (PEREIRA to LAD, SVG to diagonal , SVG to ramus intermedius, SVG to PDA); hypertension, diabetes mellitus, CKD, PAD. patient was transfer from outside hospital to [facility] on 10/12/2021 with complaints of upper back pain with radiation to neck associated with palpitations. EKG showed sinus rhythm with ST-T abnormality consistent with ischemia. Troponins were significantly elevated with peak troponin level of 9.8. She was referred for cardiac catheterization in the setting of non ST-elevation MN. Patient has CKD, and was informed that she will be at high risk for contrast induced nephropathy. Patient was willing to proceed with the procedure. Benefits and risks of the procedure were discussed with the patient in depth, and informed consent was obtained prior to the procedure. Risks of the procedure include but are not limited to vascular complications including groin hematoma, retroperitoneal bleed, vessel perforation; periprocedural MN, cardiac arrhythmias, stroke, contrast induced nephropathy, and . After discussing all the benefits, risks and alternatives, patient was willing to proceed with the procedure. PROCEDURES PERFORMED: 1. Left heart catheterization- Selective left and right coronary angiogram; LV pressure measurement and hemodynamic assessment 2. Selective bypass graft angiography 3. Aortogram 4. Selective left subclavian angiogram 5. Moderate sedation-CPT code 44361 MODERATE SEDATION: Midazolam 2 mg; fentanyl 50 mcg; Start time 0920 , Stop time 0954 ; Total [id number] time 34 minutes; Trevin Graham RN was trained observer for moderate sedation. ACCESS SITE: Right common femoral artery PROCEDURE NOTE: After obtaining informed consent, patient was brought to catheterization lab and prepped and draped in a usual sterile manner. After local anesthesia with lidocaine, right common femoral artery access was taken with micropuncture needle followed by insertion of a 6 [place] sheath. Selective left coronary angiogram was performed using 5 [place] JL 3.5 catheter. Orthogonal views were taken. There was difficulty in engaging the RCA with 5 [place] JR4 catheter. Selective bypass graft angiography was performed using the JR3.5 diagnostic catheter. The same catheter was withdrawn, and pointed towards left subclavian artery. Selective left subclavian angiogram was performed. After this, the catheter was exchanged with the 4 [place] IM catheter over a long exchange wire, selective PEREIRA angiogram was performed. After this, attention was shifted to the [place] RCA. Selective right coronary angiogram was attempted with multiple B2 catheter, and eventually completed with Abel right catheter. Aortogram was performed using 5 [place] pigtail catheter to visualize for remaining grafts . During diagnostic procedure, GR catheter was advanced in the LV cavity, LV pressure measurement was performed. LVgram was not performed to spare the patient from contrast burden due to CKD. Gradient across aortic valve measured on the pullback of the catheter. The sheath was secured in place which will be taken out in the slabber holding area. Manual pressure will be used for local hemostasis. Patient tolerated procedure well without any immediate procedure related complications. FINDINGS: [place] CORONARY ARTERIES: LEFT MAIN CORONARY: The left main coronary artery is a smaller-caliber vessel with mild diffuse irregularities, no significant focal stenosis. The vessel gives rise to LAD, ramus intermedius and left circumflex branches. LEF
[2021-10-15] MEDS: hydrALAZINE HCL 20 MG/ML VIAL 10 MG IV PUSH ×2 (10:25→19:50)
--- NOTE | 2021-10-15 11:01 | SUR.PHASEII ---
hemostasis obtained, statseal in place, dressing applied. c/d/i. groin soft, no hematoma noted, pulses present
[2021-10-15 13:52] LABS: Glucose Point of Care 151 mg/dl (65-105)
--- NOTE | 2021-10-15 15:11 | PM.IMPN ---
Progress Note: A&P Assessment and Plan (1) Anemia: Code(s): D64.9 - Anemia, unspecified Status: Chronic Assessment and Plan: Probably anemia of chronic disease transfuse if hemoglobin below 7 monitor No signs of bleeding (2) Chronic kidney disease, stage IV (severe): Code(s): N18.4 - Chronic kidney disease, stage 4 (severe) Status: Chronic Assessment and Plan: Continue to monitor, avoid nephrotoxic Consult nephrology With planned catheterization need to monitor renal function closely Renal protection protocol (3) Diabetes: Code(s): E11.9 - Type 2 diabetes mellitus without complications Status: Chronic Assessment and Plan: Associated with nephropathy Hold oral hypoglycemic medication Give insulin sliding scale Monitor (4) Gout: Code(s): M10.9 - Gout, unspecified Status: Acute Assessment and Plan: Allopurinol (5) CAD (coronary artery disease): Code(s): I25.10 - Atherosclerotic heart disease of [place] coronary artery without angina pectoris Status: Acute Assessment and Plan: Status post CABG 2011 Aspirin statin (6) HTN (hypertension): Code(s): I10 - Essential (primary) hypertension Status: Chronic Assessment and Plan: Presented with hypertensive urgency treated with IV hydralazine in the ER Continue home medication Added p.r.n. hydralazine (7) Chest pain: Code(s): R07.9 - Chest pain, unspecified Status: Acute Assessment and Plan: Associated with elevated troponin with peak at 9.8. Symptoms correlate for non ST-elevation [place] Heparin drip Aspirin Statin Coreg P.r.n. nitro Cardiology consulted [facility] planned on Thursday and started on Plavix. Had chest pain this morning with no new EKG change. However concerning given the nature. though medical management but have been planned with this new chest pain invasive intervention might be indicated. s/p [facility] 10/15/2021: 1. Severe [place] vessel CAD a) Chronic total occlusion mid LAD b) high-grade stenosis ostial-proximal segments of ramus intermedius and left circumflex arteries c) about 70% stenosis proximal RCA; 99% calcific focal stenosis mid RCA distal to RV marginal branch 2. Patent 2/4 bypass grafts -patent PEREIRA to LAD, patent SVG to diagonal branch; likely occluded SVG to ramus and SVG to PDA. 3. Patent left subclavian artery 4. LVEDP 18 mmHg. Relatively preserved LV systolic function on surface echocardiogram with segmental wall motion abnormality. 5. Systemic hypertension plan for high risk PCI with staged intervention in [place] RCA +/- ramus/LCX in a staged fashion, with likely adjunctive atherectomy for calcific stenosis. plan to transfer to [facility] in am for this. (8) Congestive heart failure: Code(s): I50.9 - Heart failure, unspecified Status: Acute Assessment and Plan: Ejection fraction 55% on recent echocardiogram in 08/2021 currently well compensated Additional Plan Leukocytosis most likely reactive chest x-ray is negative patient does not have urinary symptoms Subjective Date/time seen: 10/15/21 15:11 Interval history: HPI:67 years old female with past medical history of CHF hypertension diabetes coronary artery disease status post CABG chronic kidney failure was transferred from [facility] ER where patient presented with back pain radiating to the neck dull in nature lasted for few minutes no aggravating or relieving factor resolved now associated with palpitation patient denies shortness of breath at the ER patient was found to have systolic blood pressure in 200 was given IV hydration EKG showed nonspecific changes of T-wave troponin was elevated chest x-ray was negative for pneumonia showed cardiomegaly white blood cells was mildly elevated patient denies fever chills shortness of breath or cough. Cardiology was consulted continue heparin drip 10/12/2021 feels well no chest pain no short
[2021-10-15 15:47] LABS: Partial Thromboplastin Time 26.7 SECONDS (22.3-36.8)
[2021-10-15 17:41] LABS: Glucose Point of Care 173 mg/dl (65-105)
[2021-10-15 18:22] LABS: SARS-CoV-2 RNA PCR Negative
[2021-10-15] MEDS: ATORVASTATIN 40 MG TABLET PO (19:51)
[2021-10-15] MEDS: ACETAMINOPHEN 325 MG TABLET 650 MG PO (19:53)
[2021-10-15 21:11] LABS: Glucose Point of Care 190 mg/dl (65-105)
[2021-10-15 22:26] LABS: Partial Thromboplastin Time 50.1 SECONDS (22.3-36.8)
[2021-10-16] VITALS (15 sets, daily range): BP systolic 167–204; BP diastolic 40–66; PULSE 54–77; RESP 15–20; TEMP 36–36.5; O2SAT 97–99
[2021-10-16 05:03] LABS: Basophils Percent Auto 0.4 % (0.2-1.2); Eosinophils Absolute Auto 0.3 K/mm3 (0-0.3); Hematocrit 26.7 % (37.0-47.0); Hemoglobin 8.2 g/dL (12.0-15.0); Immature Granulocyte Absolute 0.05 K/mm3 (0.00-0.031); Immature Granulocyte Percent A 0.5 % (0-0.5); Lymphocytes Absolute Auto 1.85 K/mm3 (0.9-3.2); Lymphocytes Percent Auto 17.9 % (18.3-44.2); Mean Corpuscular HGB Conc 30.7 g/dl (32-36); Mean Corpuscular Hemoglobin 28.9 pg (26-34); Mean Platelet Volume 10.3 fl (7.4-10.4); Monocytes Percent Auto 9.9 % (2.6-8.5); Neutrophils Absolute Auto 7.1 K/mm3 (1.3-6.7); Neutrophils Percent Auto 68.3 % (45.5-73.1); Platelet Count Result 144 k/mm3 (150-375); Red Blood Count 2.84 M/mm3 (4.2-5.4); Red Cell Distribution Width 16.1 % (11.5-14.5); White Blood Count 10.4 K/mm3 (4.5-10.0)
[2021-10-16 05:15] LABS: Partial Thromboplastin Time 146.5 SECONDS (22.3-36.8)
[2021-10-16 05:21] LABS: Alanine Aminotransferase 12 U/L (4-35); Albumin Level 2.9 g/dL (3.5-5.1); Alkaline Phosphatase 84 U/L (38-126); Anion Gap 7 mmol/L (8-16); Aspartate Amino Transferase 23 U/L (14-36); Bilirubin,Total 0.4 mg/dL (0.2-1.3); Blood Urea Nitrogen 58 mg/dL (7-17); Carbon Dioxide 22 mmol/L (22-30); Chloride 106 mmol/L (98-107); Estimated Glomerular Filt Rate 16; Glucose 148 mg/dL (65-110); Magnesium 1.5 mg/dL (1.6-2.3); Potassium 4.3 mmol/L (3.4-5.0); Sodium 135 mmol/L (137-145)
[2021-10-16] MEDS: hydrALAZINE HCL 20 MG/ML VIAL 10 MG IV PUSH ×2 (06:31→17:10)
[2021-10-16 07:57] LABS: Glucose Point of Care 135 mg/dl (65-105)
[2021-10-16] MEDS: MAGNESIUM SULF 2 GM/WATER 50ML 2 GM/50 ML BAG IVPB (09:28)
[2021-10-16] MEDS: ASPIRIN 81 MG CHEWABLE TABLET PO (09:28)
[2021-10-16] MEDS: hydrALAZINE HCL 50 MG TABLET 100 MG PO ×3 (09:28→16:12)
[2021-10-16] MEDS: allopurinoL 150 MG TABLET PO (09:28)
[2021-10-16] MEDS: carvediloL 25 MG TABLET PO ×2 (09:29→16:12)
[2021-10-16] MEDS: FAMOTIDINE 20 MG TABLET PO (09:29)
[2021-10-16] MEDS: CLOPIDOGREL BISULFATE 75 MG TABLET PO (09:29)
[2021-10-16] MEDS: ISOSORBIDE MONONITRATE 60 MG TAB.ER.24H PO (09:29)
[2021-10-16] MEDS: HEPARIN SOD/D5W 100 UNITS/ML 25,000 UNITS/250 ML BAG 8 UNITS IV CONT (10:22)
[2021-10-16 11:35] LABS: Glucose Point of Care 274 mg/dl (65-105)
--- NOTE | 2021-10-16 12:03 | PM.IMPN ---
Progress Note: A&P Additional Plan 67 years old female with past medical history of CHF hypertension diabetes coronary artery disease status post CABG chronic kidney failure was transferred from [facility] ER where patient presented with back pain (1) Anemia: Probably anemia of chronic disease transfuse if hemoglobin below 7 monitor No signs of bleeding (2) Chronic kidney disease, stage IV (severe): Continue to monitor, avoid nephrotoxic Appreciate nephrology help With planned catheterization need to monitor renal function closely Renal protection protocol Supplement mag (3) Type 2 diabetes mellitus without complications Associated with nephropathy Hold oral hypoglycemic medication Give insulin sliding scale Monitor (4) CAD (coronary artery disease)/NSTEMI: Associated with elevated troponin with peak at 9.8. Symptoms correlate for non ST-elevation [place] Appreciate Cardiology help s/p [facility] 10/15/2021: 1. Severe [place] vessel CAD a) Chronic total occlusion mid LAD b) high-grade stenosis ostial-proximal segments of ramus intermedius and left circumflex arteries c) about 70% stenosis proximal RCA; 99% calcific focal stenosis mid RCA distal to RV marginal branch 2. Patent 2/4 bypass grafts -patent PEREIRA to LAD, patent SVG to diagonal branch; likely occluded SVG to ramus and SVG to PDA. 3. Patent left subclavian artery 4. LVEDP 18 mmHg. Relatively preserved LV systolic function on surface echocardiogram with segmental wall motion abnormality. 5. Systemic hypertension Plan for high risk PCI with staged intervention in [place] RCA +/- ramus/LCX in a staged fashion, with likely adjunctive atherectomy for calcific stenosis. plan to transfer to [facility], await bed 5) DVT ppx:on heparin drip 6)Code:full 7)Dispo:Await bed at [facility] Time Spent With Patient Time with patient: 15 - 25 minutes Subjective Date/time seen: 10/16/21 12:03 no acute events overnight, await bed at [facility] Review of Systems Review of Systems: All systems reviewed & are unremarkable except as noted in HPI and below Constitutional: Constitutional: Reports no additional constitutional complaints Eyes: Eyes: Reports no additional eye complaints ENT: Reports system reviewed and no additional complaints, except as documented Cardiovascular: Cardiovascular: Reports no additional cardiovascular complaints Respiratory: Respiratory: Reports no additional respiratory complaints Gastrointestinal: Gastrointestinal: Reports no additional gastrointestinal complaints Neurologic: Reports system reviewed and no additional complaints, except as documented Exam Const: General: no acute distress HENMT: Mouth: Yes moist mucous membranes Eyes: Pupils: Equal, round and reactive pupils present Neck: Neck: supple Resp: Auscultation: clear to auscultation bilaterally Cardio: Rate: regular rate Rhythm: regular rhythm GI: GI Palp: Yes Soft to palpation Auscultation: normal bowel sounds Neuro: Cognition (Neuro): normal cognition Psych: Mental Status: mental status grossly normal Objective Data Vital Signs Vital Signs: Vital Signs - 24 hr 10/15/21 12:30 10/15/21 13:00 10/15/21 14:14 Temperature Pulse Rate 57 L 58 L 61 Respiratory Rate 17 16 22 H Blood Pressure 178/61 H 169/57 H 187/55 H Pulse Oximetry 93 98 97 10/15/21 14:15 10/15/21 15:00 10/15/21 16:00 Temperature 97.6 F 97.9 F Pulse Rate 61 56 L 60 Respiratory Rate 22 H 16 16 Blood Pressure 177/43 H 164/49 H Pulse Oximetry 97 98 97 10/15/21 16:17 10/15/21 17:53 10/15/21 18:00 Temperature 97.7 F Pulse Rate 60 65 65 Respiratory Rate 16 Blood Pressure 176/50 H Pulse Oximetry 97 10/15/21 19:36 10/15/21 20:00 10/15/21 21:04 Temperature 97.4 F L Pulse Rate 65 64 Respiratory Rate 16 Blood Pressure 187/41 H 189/66 H Pulse Oximetry 97 10/15/21 22:00 10/15/21 23:50 10/16/21 00:00
--- NOTE | 2021-10-16 12:29 | PM.PNNEP ---
Progress Note: A&P Assessment and Plan (1) Chronic kidney disease, stage IV (severe): Code(s): N18.4 - Chronic kidney disease, stage 4 (severe) Status: Chronic Assessment and Plan: creatinine had been running 2.2 - 2.7mg/dl in the last year however, since last hospitalization, now running closer to 2.8 - 3.0mg/dl based on outpatient evaluation, this is due to HTN, diabetes, vascular disease and age (2) Non-ST elevation myocardial infarction (NSTEMI): Code(s): I21.4 - Non-ST elevation (NSTEMI) myocardial infarction Status: Acute Assessment and Plan: Cardiology following continue current medical therapy s/p cardiac catheterization with results noted -- plan transfer to [facility] for high risk PCI (3) HTN (hypertension): Code(s): I10 - Essential (primary) hypertension Status: Chronic Assessment and Plan: reasonable control follow trend of hemodynamics (4) Anemia: Code(s): D64.9 - Anemia, unspecified Status: Chronic Assessment and Plan: likely related to underlying CKD consider Epogen therapy follow H/H (5) Diabetes: Code(s): E11.9 - Type 2 diabetes mellitus without complications Status: Chronic Assessment and Plan: follow accu-checks glycemic control Will continue to follow. Subjective Date/time seen: 10/16/21 12:29 Unable to see yesterday as was out of room for procedure (cardiac catheterization); tolerated cardiac cath without any acute issues - results noted and awaiting transfer to [facility] for possible high risk PCI; still having intermittent bouts of chest pain still. Exam Narrative: General: WD/WN male in NAD Heart: normal S1 and S2; no rub Lungs: clear to auscultation Abdomen: soft, nontender, nondistended, positive bowel sounds Extremities: no cyanosis or clubbing; no edema Skin: warm and dry Objective Data Vital Signs Vital Signs: Vital Signs Temp Pulse Resp BP Pulse Ox 10/16/21 12:00 36.5 C 61 20 167/50 H 99 10/16/21 10:00 63 10/16/21 09:29 68 10/16/21 08:17 36.0 C L 61 18 177/41 H 98 10/16/21 08:05 97 10/16/21 08:00 61 18 98 10/16/21 06:00 65 10/16/21 04:00 36.4 C L 63 15 183/40 H 97 10/16/21 02:00 60 10/16/21 00:00 36.3 C L 68 15 167/41 H 98 10/15/21 23:50 68 97 10/15/21 22:00 78 10/15/21 21:04 189/66 H 10/15/21 20:00 64 10/15/21 19:36 36.3 C L 65 16 187/41 H 97 10/15/21 18:00 65 10/15/21 17:53 65 Intake/Output Intake/Output: Intake & Output 10/13/21 10/14/21 10/15/21 10/16/21 23:59 23:59 23:59 23:59 Intake Total 688 880 0244 960 Output Total 1925 2200 2150 500 Balance -2655 -1830 -350 460 Meds/Results Medications: Active Medications Generic Name Dose Route Start Last Admin Trade Name Freq PRN Reason Stop Dose Admin Acetaminophen 650 mg 10/12/21 04:30 10/15/21 19:53 Acetaminophen 325 Mg Tablet PO 650 mg Q4H PRN Administration Mild Pain (1-3) Al Hydrox/Mg Hydrox/Simethicone 30 ml 10/12/21 04:30 Mag Hydrox/Al Hydrox/Simeth 30 Ml Udc PO Q6H PRN Indigestion Allopurinol 150 mg 10/12/21 09:00 10/16/21 09:28 Allopurinol 150 Mg Tablet PO 150 mg DAILY@0800 MACARIO Administration Aspirin 81 mg 10/12/21 08:00 10/16/21 09:28 Aspirin 81 Mg Chewable Tablet PO 81 mg DAILY@0800 MACARIO Administration Atorvastatin Calcium 40 mg 10/12/21 21:00 10/15/21 19:51 Atorvastatin 40 Mg Tablet PO 40 mg HS MACARIO Administration Carvedilol 25 mg 10/12/21 08:00 10/16/21 16:12 Carvedilol 25 Mg Tablet PO 25 mg BIDWM MACARIO Administration Clopidogrel Bisulfate 75 mg 10/13/21 13:10 10/16/21 09:29 Clopidogrel Bisulfate 75 Mg Tablet PO 75 mg QAM MACARIO Administration Dextrose 12.5 gm 10/12/21 05:49 Dextrose 50% 25 Gm/50 Ml Syringe IV PUSH PRN PRN Hypoglycemia Protocol Famotidine 20 mg 10/12
--- NOTE | 2021-10-16 12:29 | P.PNNP_ITS ---
Progress Note: A&P Assessment and Plan (1) Chronic kidney disease, stage IV (severe): Code(s): N18.4 - Chronic kidney disease, stage 4 (severe) Status: Chronic Assessment and Plan: * creatinine had been running 2.2 - 2.7mg/dl in the last year * however, since last hospitalization, now running closer to 2.8 - 3.0mg/dl * based on outpatient evaluation, this is due to HTN, diabetes, vascular disease and age (2) Non-ST elevation myocardial infarction (NSTEMI): Code(s): I21.4 - Non-ST elevation (NSTEMI) myocardial infarction Status: Acute Assessment and Plan: * Cardiology following * continue current medical therapy * s/p cardiac catheterization with results noted -- plan transfer to [facility] for high risk PCI (3) HTN (hypertension): Code(s): I10 - Essential (primary) hypertension Status: Chronic Assessment and Plan: * reasonable control * follow trend of hemodynamics (4) Anemia: Code(s): D64.9 - Anemia, unspecified Status: Chronic Assessment and Plan: * likely related to underlying CKD * consider Epogen therapy * follow H/H (5) Diabetes: Code(s): E11.9 - Type 2 diabetes mellitus without complications Status: Chronic Assessment and Plan: * follow accu-checks * glycemic control Will continue to follow. Subjective Date/time seen: 10/16/21 12:29 Unable to see yesterday as was out of room for procedure (cardiac catheterizati on); tolerated cardiac cath without any acute issues - results noted and awaiting transfer to [facility] for possible high risk PCI; still having intermittent bouts of chest pain still. Exam Narrative: General: WD/WN male in NAD Heart: normal S1 and S2; no rub Lungs: clear to auscultation Abdomen: soft, nontender, nondistended, positive bowel sounds Extremities: no cyanosis or clubbing; no edema Skin: warm and dry Objective Data Vital Signs Vital Signs: Vital Signs Temp Pulse Resp BP Pulse Ox 10/16/21 12:00 36.5 C 61 20 167/50 H 99 10/16/21 10:00 63 10/16/21 09:29 68 10/16/21 08:17 36.0 C L 61 18 177/41 H 98 10/16/21 08:05 97 10/16/21 08:00 61 18 98 10/16/21 06:00 65 10/16/21 04:00 36.4 C L 63 15 183/40 H 97 10/16/21 02:00 60 10/16/21 00:00 36.3 C L 68 15 167/41 H 98 10/15/21 23:50 68 97 10/15/21 22:00 78 10/15/21 21:04 189/66 H 10/15/21 20:00 64 10/15/21 19:36 36.3 C L 65 16 187/41 H 97 10/15/21 18:00 65 10/15/21 17:53 65 Intake/Output Intake/Output: Intake & Output 10/13/21 10/14/21 10/15/21 10/16/21 23:59 23:59 23:59 23:59 Intake Total 746 276 2633 960 Output Total 1925 2200 2150 500 Balance -1135 -1830 -350 460 Meds/Results Medications: Active Medications Generic Name Dose Route Start Last Admin Trade Name Herm[place] PRN Reason Stop Dose Admin Acetaminophen 650 mg 10/12/21 04:30 10/15/21 19:53 Acetaminophen 325 Mg Tablet PO 650 mg Q4H PRN Administration Mild Pain (1-3) Al Hydrox/Mg Hydrox/Simethicone 30 ml 10/12/21 04:30 Mag Hydrox/Al Hydrox/Simeth 30 Ml Udc PO
[2021-10-16] MEDS: INSULIN ASPART (*BKC) 100 UNITS/ML SUB-Q ×2 (12:33→16:17)
[2021-10-16] MEDS: FUROSEMIDE 40 MG TABLET PO (12:33)
--- NOTE | 2021-10-16 13:10 | PM.PNCARD ---
Progress Note: A&P Assessment and Plan (1) Non-ST elevation myocardial infarction (NSTEMI): Code(s): I21.4 - Non-ST elevation (NSTEMI) myocardial infarction Status: Acute Assessment and Plan: Patient did have a significant non ST-elevation myocardial infarction. She has some dynamic high lateral ST and T-wave changes noted on EKGs from 2 days ago. She is no longer having any symptoms of chest pain, shoulder pain or palpitations. Continued current medical therapy. Awaiting transfer to [facility] for high-risk PCI (2) Hypertension associated with diabetes: Code(s): E11.59 - Type 2 diabetes mellitus with other circulatory complications; I15.2 - Hypertension secondary to endocrine disorders Status: Acute Assessment and Plan: Fluctuating. Continue current meds. (3) Acute kidney injury superimposed on CKD: Code(s): N17.9 - Acute kidney failure, unspecified; N18.9 - Chronic kidney disease, unspecified Status: Acute Assessment and Plan: As detailed above, nephrology seeing (4) Volume overload: Code(s): E87.70 - Fluid overload, unspecified Status: Acute (5) CAD (coronary artery disease): Code(s): I25.10 - Atherosclerotic heart disease of [place] coronary artery without angina pectoris Status: Acute Assessment and Plan: Known disease: CABG in 2011 at [facility]. Catheterization results as noted above Subjective Date/time seen: 10/16/21 13:10 Interval history: 76-year-old admitted for non-STEMI Date of service 10/16/2021: No chest pain, shortness breath, groin pain at this point. Has a little soreness in the groin but nothing significant. Review of Systems Review of Systems: All systems reviewed & are unremarkable except as noted in HPI and below Constitutional: Constitutional: Denies headache(s) and Denies weakness Eyes: Eyes: Denies blurry vision ENT: Reports Normal hearing present, Denies headache(s) and Denies neck pain Cardiovascular: Cardiovascular: Denies chest pain and Denies dyspnea Respiratory: Respiratory: Denies dyspnea Gastrointestinal: Gastrointestinal: Denies abdominal pain Genitourinary: Genitourinary: Denies flank pain Musculoskeletal: Musculoskeletal: Denies neck pain Integumentary/Breasts: Skin/Breast: Denies dry skin Neurologic: Reports Normal hearing present, Denies headache(s) and Denies weakness Psychiatric: Psychiatric: Denies anxiety Endocrine: Endocrine: Denies change in body appearance Hematologic/Lymphatic: Hematologic/Lymphatic: Denies easy bleeding Allergic/Immunologic: Allergic/Immunologic: Denies GI upset with certain foods Exam Const: General: comfortable and no acute distress Other: Able to lie flat HENMT: General nose exam: Normal nares present and no epistaxis Mouth: Yes moist mucous membranes Eyes: Sclera: sclerae normal Pupils: Equal, round and reactive pupils present Neck: Neck: supple and no JVD Carotids: no bruits Resp: Auscultation: clear to auscultation bilaterally and lung sounds not diminished Other: No chest wall tenderness Cardio: Rate: regular rate Rhythm: regular rhythm Heart sounds: no gallops, no murmurs and no rubs GI: Auscultation: normal bowel sounds Skin: General skin exam: normal color, rashes and/or lesions noted and no erythema Other: Warm Neuro: Cranial nerves: Yes Equal, round and reactive pupils present and Yes Normal hearing present Speech: normal speech Other: No obvious focal deficit or facial asymmetry Extrem: General: no edema Other: Normal capillary refills Intact distal pulses. Right groin is free of hematoma ecchymosis or bruit Objective Data Vital Signs Vital Signs: Vital Signs - 24 hr 10/15/21 14:14 10/15/21 14:15 10/15/21 15:00 Temperature 36.4 C Pulse Rate 61 61 56 L Respiratory Rate 22 H 22 H 16 Blood Pressure 187/55 H 177/43 H Pulse Oximetry 97 97 98 10/15/21 16:00 10/15/21 16:17 10/15/21 17:53 Temper
[2021-10-16 14:47] LABS: Partial Thromboplastin Time 58.7 SECONDS (22.3-36.8)
[2021-10-16] MEDS: NITROGLYCERIN SL 0.4 MG TABLET SUBLINGUAL ×2 (14:58→16:08)
[2021-10-16] MEDS: HEPARIN SODIUM 5,000 UNITS/ML VIAL 2000 UNITS IV PUSH (14:59)
--- NOTE | 2021-10-16 16:49 | PC.NURSE ---
Pt called out at 1455 having chest pain and palpitations with left sided shoulder and arm pain. Called placed to Dr. Julien who advised give nitro sublingual. Gave one dose of sublingual nitro and pain was relieved. Pt resting comfortably. Pt called out again at 1606 having chest pain and palpitation with left sided shoulder and arm pain. Vitals 81P 99%O2 BP 210/52 right arm. Dose of sublingual nitro given as well as 100 hydralazine Po and 25 Carvedilol. Pt advised pain free after 3 minutes. Pt now resting and worn out. Dr. Julien called to check on PT advised him of 2nd chest pain occurrence. Advised if pt has chest pain again to get an EKG. Pt is being transferred to [facility] for high risk PCI and ambulance ETA is 1700PM.
[2021-10-16 18:04] LABS: Glucose Point of Care 217 mg/dl (65-105)
--- NOTE | 2021-10-17 17:07 | PM.TDS ---
Transfer Discharge Sum: Prov Provider Date of admission: 10/13/21 07:16 Primary care physician: PHYSICIAN NOT ON STAFF Admitting clinician: Crystal Hunt MD Consults: 10/12/21 Consult to Physician Routine Comment: Consulting Provider: Crystal Hunt M.A. call center dispatcher/MD group to consult: Dr. Diaz Reason for consultation: NSTEMI Has provider been notified: Yes Consult to Physician Routine Comment: Consulting Provider: Pily Diaz Reason for consultation: nstemi Has provider been notified: Yes 10/13/21 13:07 Consult to Physician Routine Comment: spoke to Dr. Ybarra @[phone](,) Consulting Provider: Jaime Ybarra call center dispatcher/ group to consult: Nephrology Reason for consultation: Chronic kidney disease Has provider been notified: Yes 10/14/21 Consult to Physician Routine Comment: spoke to Dr. Ybarra @[phone](,) Consulting Provider: Jaime Ybarra call center dispatcher/ group to consult: Dr. Ybarra Reason for consultation: Acute on chronic kidney disease, pre cath Has provider been notified: Yes DS: Admitting Diagnosis Discharge Date 10/16/21 Admitting Diagnosis NSTEMI DS: Discharge Diagnosis Discharge Diagnosis (1) Non-ST elevation myocardial infarction (NSTEMI): Code(s): I21.4 - Non-ST elevation (NSTEMI) myocardial infarction Status: Acute Transfer Discharge Sum: Med Medications Active and Home Medications: Home Medications allopurinol 150 mg PO DAILY 08/31/21 [History Confirmed 10/12/21] aspirin 81 mg PO DAILY 08/31/21 [History Confirmed 10/12/21] atorvastatin 40 mg PO HS 08/31/21 [History Confirmed 10/12/21] carvedilol 25 mg PO BID 08/31/21 [History Confirmed 10/12/21] famotidine [Pepcid AC] 20 mg PO DAILY 08/31/21 [History Confirmed 10/12/21] furosemide 40 mg PO DAILY 08/31/21 [History Confirmed 10/12/21] glimepiride 2 mg PO DAILY 08/31/21 [History Confirmed 10/12/21] hydralazine 100 mg PO TID 08/31/21 [History Confirmed 10/12/21] Transfer Discharge Sum: Hosp Hospital Course Hospital course: 67 years old female with past medical history of CHF hypertension diabetes coronary artery disease status post CABG chronic kidney failure was transferred from [facility] ER where patient presented with back pain (1) Anemia: Probably anemia of chronic disease transfuse if hemoglobin below 7 monitor No signs of bleeding (2) Chronic kidney disease, stage IV (severe): Continue to monitor, avoid nephrotoxic Appreciate nephrology help With planned catheterization need to monitor renal function closely Renal protection protocol Supplement mag (3) Type 2 diabetes mellitus without complications Associated with nephropathy Hold oral hypoglycemic medication Give insulin sliding scale Monitor (4) CAD (coronary artery disease)/NSTEMI: Associated with elevated troponin with peak at 9.8. Symptoms correlate for non ST-elevation [place] Appreciate Cardiology help s/p [facility] 10/15/2021: 1. Severe [place] vessel CAD a) Chronic total occlusion mid LAD b) high-grade stenosis ostial-proximal segments of ramus intermedius and left circumflex arteries c) about 70% stenosis proximal RCA; 99% calcific focal stenosis mid RCA distal to RV marginal branch 2. Patent 2/4 bypass grafts -patent PEREIRA to LAD, patent SVG to diagonal branch; likely occluded SVG to ramus and SVG to PDA. 3. Patent left subclavian artery 4. LVEDP 18 mmHg. Relatively preserved LV systolic function on surface echocardiogram with segmental wall motion abnormality. 5. Systemic hypertension Plan for high risk PCI with staged intervention in [place] RCA +/- ramus/LCX in a staged fashion, with likely adjunctive atherectomy for calcific stenosis. Patient was trnaferred to [facility] for high risk PCI in stable condition. Time Spent with Patient Time attestation: Total time spent providing and/or coordinating transfer services: Exam Narrative: Const: General: no acute distress
== END 2021-10-16 19:06 | disposition short-term general hospital (02) | DRG 281 ==
PROVIDERS: Internal Medicine; Internal Medicine Cardiovascular Disease; Internal Medicine Interventional Cardiology; Nurse Practitioner; Admitting Provider Internal Medicine; Visit Provider Internal Medicine
PROC: 4A023N7 Measurement of Cardiac Sampling and Pressure, Left Heart, Percutaneous Approach (ICD-10-PCS; CPT 93459; principal; 2021-10-15 08:00)
DX: I21.4 Non-ST elevation (NSTEMI) myocardial infarction (principal); I13.0 Hypertensive heart and chronic kidney disease with heart failure and stage 1 through stage 4 chronic kidney disease, or unspecified chronic kidney disease; I50.32 Chronic diastolic (congestive) heart failure; N18.4 Chronic kidney disease, stage 4 (severe); N17.9 Acute kidney failure, unspecified; I25.10 Atherosclerotic heart disease of native coronary artery without angina pectoris; I25.82 Chronic total occlusion of coronary artery; Z20.822 Contact with and (suspected) exposure to COVID-19; D63.1 Anemia in chronic kidney disease; E11.22 Type 2 diabetes mellitus with diabetic chronic kidney disease; E11.21 Type 2 diabetes mellitus with diabetic nephropathy; E11.59 Type 2 diabetes mellitus with other circulatory complications; I15.2 Hypertension secondary to endocrine disorders; M10.9 Gout, unspecified; D72.829 Elevated white blood cell count, unspecified; Z95.1 Presence of aortocoronary bypass graft; I73.9 Peripheral vascular disease, unspecified
CPT/HCPCS: 36415; 80053; 80061; 82948; 83036; 83735; 84484; 85025; 85610; 85730; 93005; 93306; 93459; 96365; 96366; A9270; C1769; C1887; C1894; C9803; G0378; G0379; J0360; J1644; J1815; J2250; J3010; J3475; J7030; U0003; U0005

== ENCOUNTER 2022-04-26 17:24 | Inpatient (IN) | payer MEDICARE, SELFPAY ==
[2022-04-26] VITALS (17 sets, daily range): BP systolic 121–139; BP diastolic 40–86; PULSE 53–60; RESP 7–23; TEMP 36.5–36.6; O2SAT 90–100
--- NOTE | ~2022-04-26 | US_ITS ---
EXAMINATION: US renal BI DATE: 04/27/2022 10:43 INDICATION: Elevated creatinine TECHNIQUE: Multiple grayscale and Doppler ultrasound images of the kidneys were obtained. COMPARISON: CT, 04/26/2022 FINDINGS: The right kidney measures 11.3 x 6 x 6.6 cm. A 2.3 cm cystic lesion of the right kidney cor responds to an exophytic lesion seen on the comparison CT and likely represents a proteinaceous cyst. The left kidney measures 9.7 x 5.4 x 5 cm. The exophytic soft tissue attenuation lesion seen on the comparison CT is not definitely identified. There is a linear echogenic focus of unclear etiology in the peripelvic fat of the left kidney possibly reflecting avascular calcification.. The kidneys demon strate normal parenchymal echogenicity. There is no hydronephrosis. The bladder is decompressed. IMPRESSION: 1. No sonographic correlate for the patient's symptoms. 2. Exophytic soft tissue attenuation lesion of the left kidney seen on the comparison CT is not defin itely identified. Follow-up by CT or MRI without and with contrast is recommended. Reviewed, dictated and finalized at location F. IMPRESSION: 1. No sonographic correlate for the patient's symptoms. 2. Exophytic soft tissue attenuation lesion of the left kidney seen on the [facility] CT is not definitely identified. Follow-up by CT or MRI without and with contrast is recommended.
--- NOTE | ~2022-04-26 | XR_ITS ---
EXAMINATION: XR chest 2V DATE: 04/26/2022 18:36 INDICATION: Weakness and prior myocardial infarction presenting with bilateral pedal edema. TECHNIQUE: frontal and lateral views of the chest were obtained. COMPARISON: Chest radiograph dated 09/04/2021 FINDINGS: Mild opacities at the bilateral lung base with blunting at the costophrenic angles and posterior sulc i consistent with small bilateral pleural effusions and associated basilar atelectasis. Borderline he art size with pulmonary vascular congestion. Increased indistinct interstitial pattern and perihilar bronchial cuffing the right lower lung zone consistent with mild pulmonary edema. Median sternotomy w ires, ostial markers and mediastinal surgical clips consistent with prior coronary artery bypass ronak ting. There is also been prior coronary artery stenting. Atherosclerotic aorta. Suture anchor at the right humeral head consistent with prior rotator cuff repair. Chronic mild anterior wedging of a few vertebral bodies at the thoracolumbar junction. IMPRESSION: 1. Small bilateral pleural effusions with bibasilar atelectasis. 2. Borderline heart size with pulmonary vascular congestion and mild pulmonary edema in the right low er lung zone. Reviewed, dictated and finalized at location A. IMPRESSION: 1. Small bilateral pleural effusions with bibasilar atelectasis. 2. Borderline heart size with pulmonary vascular congestion and mild pulmonary edema in the right lower lung zone.
--- NOTE | ~2022-04-26 | XR_ITS ---
XR chest 2V 05/01/2022 10:43 Indication: Cough. CHF. Procedure: AP and lateral views of the chest Comparison: Comparison to multiple prior studies sequentially, with oldest reviewed study dated 08/31. Findings: Status post median sternotomy for CABG. Cardiomegaly. There is a coronary artery stent. The re is mild interstitial edema. Small pleural effusions. Right basilar atelectasis. Impression: 1: Cardiomegaly with mild interstitial edema. 2: Small pleural effusions, right greater than left. Reviewed, dictated and finalized at location B. Impression: 1: Cardiomegaly with mild interstitial edema. 2: Small pleural effusions, right greater than left.
--- NOTE | ~2022-04-26 | MR_ITS ---
EXAMINATION: MR abdomen wo/w con DATE: 04/30/2022 10:37 INDICATION: Left kidney mass. TECHNIQUE: Magnetic resonance imaging (MRI) of the abdomen was performed without and with 12 mL Multi Stevie intravenous contrast. COMPARISON: Ultrasound kidneys 04/27/2022, CT abdomen and pelvis 04/26/2022 FINDINGS: There are moderate-sized right and small left pleural effusions. Cardiomegaly is noted. The liver, sp marilee, pancreas, and adrenal glands are normal. There are cysts and hemorrhagic cysts in the kidneys m easuring up to 1.9 cm on the right. There is a diverticulum of the third portion of the duodenum. The re are no dilated loops of bowel. There are no pathologically enlarged lymph nodes. There is a small volume of ascites. There is edema of the intra-abdominal fat. Body wall edema is noted. IMPRESSION: 1. Benign cysts and hemorrhagic cysts in the kidneys. 2. Moderate-sized right and small left pleural effusions. 3. Small volume of ascites. Reviewed, dictated and finalized at location A.
--- NOTE | ~2022-04-26 | CT_ITS ---
EXAMINATION: CT abdomen pelvis wo con DATE: 04/26/2022 19:19 INDICATION: Urinary retention TECHNIQUE: Computed tomography (CT) of the abdomen and pelvis was performed without intravenous contr ast. Automated exposure control and iterative reconstruction technique were employed. The dose-length product was 426.02 mGy-cm. COMPARISON: 05/25/2018 FINDINGS: Cardiomegaly. Median sternotomy wires with change of prior coronary artery bypass grafting as well as coronary artery stenting. No pericardial effusion. Small bilateral pleural effusions, right greater than left. Small amount of high attenuation material, likely aspirated barium, within the atelectatic dependent right lower lobe. There are some groundglass opacity in the bilateral lower lobes which co uld represent mild pulmonary edema, atelectasis or pneumonia. Mild intra and extra hepatic biliary ductal dilation. Gallbladder is nonvisualized and likely surgica lly absent. There is mild edema at the tomsa hepatis which extends caudally to the right paracolic gu tter.. Spleen, pancreas and bilateral adrenal glands are normal. 2.3 cm exophytic lesion at the upper pole of the right kidney which is increased in size from 10 mm as well as increase in density of thi s previously fluid attenuation suggesting increasing protein content or blood within a complex cyst. New 12 mm exophytic lesion also with greater than simple fluid attenuation at the lower pole of the l eft kidney. There is calcified atherosclerosis of the aorta and many of the other arteries including at the bilateral renal smitha. Bladder is normal. The uterus is not identified and has likely been surg ically resected. There are few scattered clonic diverticula without adjacent inflammatory change to s uggest diverticulitis. Increase in size of a now 5 similar duodenal diverticulum. Small bowel is othe rwise unremarkable. The appendix is again not visualized and may be surgically absent. No pericecal i n comparison to suggest. Trace amount of free fluid in the pelvis. No abscess or free intraperitoneal gas. No pathologically enlarged abdominal or pelvic lymphadenopathy. Mild thoracolumbar levocurvatur e with severe spondylosis. Chronic T12 and L2 compression fractures. IMPRESSION: 1. Small bilateral pleural effusions with some ground glass opacities in the bilateral lower lobes wh ich could represent pulmonary edema, atelectasis or pneumonia. 2. Mild intra and extrahepatic biliary ductal dilation which which can be seen postcholecystectomy. T here is however some edema at the tomas hepatis and could not exclude choledocholithiasis. Correlate with liver function tests. 3. Couple exophytic lesions at both kidneys with greater than simple fluid attenuation most likely re presenting complex/hemorrhagic cysts although solid neoplasm cannot be excluded. Recommend further ev aluation with pre and postcontrast MRI or CT. 4. Cardiomegaly. Reviewed, dictated and finalized at location A. IMPRESSION: 1. Small bilateral pleural effusions with some ground glass opacities in the bi lateral lower lobes which could represent pulmonary edema, atelectasis or pneum onia. 2. Mild intra and extrahepatic biliary ductal dilation which which can be seen postcholecystectomy. There is however some edema at the tomas hepatis and could not exclude choledocholithiasis. Correlate with liver function tests. 3. Couple exophytic lesions at both kidneys with greater than simple fluid atte nuation most likely representing complex/hemorrhagic cysts although solid neopl asm cannot be excluded. Recommend further evaluation with pre and postcontrast MRI or CT. 4. Cardiomegaly.
--- NOTE | 2022-04-26 17:38 | ECG_ITS ---
Measurements Intervals [place] Rate: 75 P: ME: 0 QRS: -12 QRSD: 88 T: 31 QT: 447 QTc: 502 Interpretive Statements ATRIAL FIBRILLATION POOR R-WAVE PROGRESSION, POSSIBLE ANTERIOR MYOCARDIAL INFARCTION , PROBABLY OLD INFERIOR MYOCARDIAL INFARCTION , PROBABLY OLD [40+ ms Q WAVE AND/OR ST/T ABNORMALITY IN II/aVF] COMPARED TO ECG 10/15/2021 05:51:55 ATRIAL FIBRILLATION NOW PRESENT Electronically Signed On 04-26-2022 18:55:29 CDT by Pily Diaz M.D.
--- NOTE | 2022-04-26 17:51 | ED.WEAKNESS ---
HPI - Weakness General Chief complaint: Weakness Stated complaint: Weakness, Lower Leg Swelling Time Seen by Provider: 04/26/22 17:37 History of Present Illness HPI Narrative: 76-year-old female presenting with weakness, she had been admitted at outside hospital for about a week for fluid in lungs requiring drainage, and when she was discharged she was too scared to eat and was confused about her new medication prescriptions, and per family member at bedside has been declining day by day; increased swelling to lower extremities. Denies any chest pain and or difficulty breathing. Related Data Home Medications Medication Instructions Recorded Confirmed allopurinol 300 mg tablet 150 mg PO DAILY 08/31/21 01/03/22 atorvastatin 40 mg tablet 40 mg PO HS 08/31/21 01/03/22 carvedilol 25 mg tablet 25 mg PO BID 08/31/21 01/03/22 glimepiride 2 mg tablet 2 mg PO DAILY 08/31/21 01/03/22 hydralazine 100 mg tablet 100 mg PO TID 08/31/21 01/03/22 pantoprazole 40 mg granules 40 mg PO DAILY 12/18/21 01/03/22 delayed-release for susp in packet clopidogrel 75 mg tablet 75 mg PO DAILY 01/03/22 01/03/22 Allergies Allergy/AdvReac Type Severity Reaction Status Date / Time metronidazole Allergy Severe Diarrhea Verified 04/26/22 17:54 carbamazepine Allergy Mild Itching Verified 04/26/22 17:54 hydrocodone Allergy Mild ITCHING Verified 04/26/22 17:54 Sulfa (Sulfonamide Allergy Mild ITCHING Verified 04/26/22 17:54 Antibiotics) terbinafine Allergy Mild MESSED UP Verified 04/26/22 17:54 BS AND BP triamterene Allergy Mild ITCH Verified 04/26/22 17:54 ciprofloxacin Allergy Unknown Unknown Verified 04/26/22 17:54 labetalol Allergy Unknown INCREASES Verified 04/26/22 17:54 BP Penicillins Allergy Unknown ITCHING Verified 04/26/22 17:54 tramadol Allergy Unknown HIVES Verified 04/26/22 17:54 Review of Systems Review of Systems: CONST: No fever. HEENT: No sore throat C/V: No chest pain RESP: No shortness of breath GI: Poor appetite : No dysuria. M/S: No joint pain. SKIN: No rash. NEURO: [No headache or focal numbness or weakness] PSYCH: [No depression] [facility] Past Medical History Medical History Heart attack History of adenomatous polyp of colon Obesity PUD (peptic ulcer disease) Surgical History Surgical History H/O heart artery stent H/O right heart catheterization H/O total hysterectomy History of cholecystectomy History of tonsillectomy Family History Family History Mother Diabetes mellitus Hypertension Acute myocardial infarction Father Cancer of bone Sibling Social History Social History Smoking status: Never smoker Alcohol intake: never Substance use: never Substance use type: does not use Spiritual care concerns: No Exam Narrative: EXAMINATION OF ORGAN SYSTEMS/BODY AREAS: Constitutional: Vital signs per nursing GENERAL:[No acute distress, non-toxic appearing.] HEAD: Normal with no signs of head trauma. EYES: EOMI, conjunctiva normal ENT: Hearing grossly intact LUNGS: Nonlabored breathing. HEART: Irregular rate and rhythm ABD: [Soft], mildly distended, [nontender to palpation] EXT: Normal range of motion, bilateral lower extremity edema SKIN: [No rashes or lesions.] NEURO: [Alert and oriented x 3. No gross focal sensory or strength deficits.] PSYCH: Normal affect Course Vital Signs Vital signs: Vital Signs Temperature 97.7 F 04/26/22 17:26 Pulse Rate 53 L 04/26/22 17:26 Respiratory Rate 18 04/26/22 17:26 Blood Pressure 124/42 L 04/26/22 17:26 Pulse Oximetry 93 04/26/22 17:26 Temperature 97.7 F 04/26/22 17:26 Pulse Rate 57 L 04/26/22 18:15 Respiratory Rate 17 04/26/22 18:15 Blood Pressure 129/46 L 04/26/22 18:01 Pulse Oximetry 9
[2022-04-26 18:14] LABS: Basophils Absolute Auto 0.1 K/mm3 (0.0-0.1); Basophils Percent Auto 0.8 % (0.2-1.2); Eosinophils Absolute Auto 0.5 K/mm3 (0-0.3); Eosinophils Percent Auto 5.2 % (0-4.4); Hematocrit 26.3 % (37.0-47.0); Hemoglobin 8.2 g/dL (12.0-15.0); Immature Granulocyte Absolute 0.06 K/mm3 (0.00-0.031); Immature Granulocyte Percent A 0.6 % (0-0.5); Lymphocytes Absolute Auto 1.49 K/mm3 (0.9-3.2); Lymphocytes Percent Auto 14.4 % (18.3-44.2); Mean Corpuscular HGB Conc 31.2 g/dl (32-36); Mean Corpuscular Hemoglobin 28.8 pg (26-34); Mean Corpuscular Volume 92.3 fl (80-100); Mean Platelet Volume 9.9 fl (7.4-10.4); Monocytes Absolute Auto 0.8 K/mm3 (0.1-0.6); Monocytes Percent Auto 8.1 % (2.6-8.5); Neutrophils Absolute Auto 7.4 K/mm3 (1.3-6.7); Neutrophils Percent Auto 70.9 % (45.5-73.1); Platelet Count Result 251 k/mm3 (150-375); Red Blood Count 2.85 M/mm3 (4.2-5.4); Red Cell Distribution Width 15.9 % (11.5-14.5); White Blood Count 10.4 K/mm3 (4.5-10.0)
[2022-04-26 18:24] LABS: Alanine Aminotransferase 19 U/L (6-35); Albumin Level 3.9 g/dL (3.5-5.1); Alkaline Phosphatase 107 U/L (38-126); Anion Gap 18 mmol/L (8-16); Aspartate Amino Transferase 26 U/L (14-36); Bilirubin,Total 0.3 mg/dL (0.2-1.3); Blood Urea Nitrogen 100 mg/dL (7-17); Calcium 8.2 mg/dL (8.4-10.2); Carbon Dioxide 19 mmol/L (22-30); Chloride 100 mmol/L (98-107); Estimated Glomerular Filt Rate 7; Glucose 228 mg/dL (65-110); Lipase 283 U/L (23-300); Potassium 5.5 mmol/L (3.4-5.0); Sodium 137 mmol/L (137-145)
[2022-04-26 18:33] LABS: NT Pro B Type Natriuretic Pept > 35000 pg/mL (5-100)
[2022-04-26 18:36] LABS: Troponin I 0.029 ng/mL (0.000-0.034)
[2022-04-26] MEDS: FUROSEMIDE INJ 40 MG/4 ML VIAL IV PUSH (19:31)
[2022-04-26] MEDS: SODIUM ZIRCONIUM CYCLOSILICATE 10 GM POWD.PACK PO (19:31)
--- NOTE | 2022-04-26 19:36 | PM.IMHP ---
H&P: HPI History of Present Illness Date/Time: 04/26/22 19:36 Chief Complaint: Weakness Narrative: this is a 76-year-old female patient who has chronic renal failure and congestive heart failure. The patient recently was admitted at an outside hospital for about a week for fluid overload. Her effusion required drainage and she was discharged. The patient was too scared to eat and was confused about her new medications. The family brought her in today he is a felt that she was declining more every day. She denied any chest pain or difficulty breathing. Her white count was noted to be 10.4 RBC 2.84 and her H&H is 8.2 and 26.3 which appears to be her baseline. Potassium noted to be 25.5. His anion gap 18. BUN 100 and creatinine is 6. The patient typically sees Dr. Esquivel her last BUN was 58 and creatinine 2.8 which is closer to her baseline. Abdominal pelvis CT was read as the following 1. Small bilateral pleural effusions with some ground glass opacities in the bilateral lower lobes which could represent pulmonary edema, atelectasis or pneumonia. 2. Mild intra and extrahepatic biliary ductal dilation which which can be seen postcholecystectomy. There is however some edema at the tomas hepatis and could not exclude choledocholithiasis. Correlate with liver function tests. 3. Couple exophytic lesions at both kidneys with greater than simple fluid attenuation most likely representing complex/hemorrhagic cysts although solid neoplasm cannot be excluded. Recommend further evaluation with pre and postcontrast MRI or CT. 4. Cardiomegaly. chest x-ray was read as the following1. Small bilateral pleural effusions with bibasilar atelectasis. 2. Borderline heart size with pulmonary vascular congestion and mild pulmonary edema in the right lower lung zone. nephrology has been consulted and recommended that the patient receive Lasix. The patient stated that she has only voided 1 time since this morning . The patient was given Lokelma for her mildly elevated potassium and the Lasix IV. The patient is being admitted to inpatient status on the date of service of 04/26/2022. Review of Systems Review of Systems: See HPI All systems reviewed & are unremarkable except as noted in HPI and below Constitutional: Constitutional: Reports as per HPI and Reports no additional constitutional complaints Eyes: Eyes: Reports as per HPI and Reports no additional eye complaints ENT: Reports system reviewed and no additional complaints, except as documented and Reports Normal hearing present Cardiovascular: Cardiovascular: Reports no additional cardiovascular complaints Respiratory: Respiratory: Reports no additional respiratory complaints and Reports no additional respiratory complaints Gastrointestinal: Gastrointestinal: Reports as per HPI and Reports no additional gastrointestinal complaints Musculoskeletal: Musculoskeletal: Reports no additional musculoskeletal complaints Integumentary/Breasts: Skin/Breast: Reports system reviewed and no additional complaints, except as docu and Reports as per HPI Neurologic: Reports system reviewed and no additional complaints, except as documented, Reports as per HPI and Reports Normal hearing present Psychiatric: Psychiatric: Reports no additional psychiatric complaints and Reports as per HPI Endocrine: Endocrine: Reports no additional endocrine complaints Hematologic/Lymphatic: Hematologic/Lymphatic: Reports no additional hematologic/lymphatic complaints Allergic/Immunologic: Allergic/Immunologic: Reports no additional allergic/immunologic complaints [facility] Past Medical History Medical History (Updated 04/26/22 @ 21:16 by Priti Ro NP) MASSIMO (acute kidney injury) Congestive heart failure Coronary artery disease involving coronary bypass graft of [place] heart Diabetes Heart attack 2011 History of adenomatous polyp of colon Obesity Obstructive sleep apnea Pneumonia PUD (peptic ulcer disease) Surgica
[2022-04-26 20:18] LABS: Add Urine Microscopic? YES; Appearance Urine Cloudy (Clear); Bilirubin Urine Negative (Negative); Blood Urine Negative (Negative); Color Urine Yellow (Yellow); Glucose Urine UA Negative (Negative); Ketones Urine Negative (Negative); Leukocyte Esterase Ur Negative LEU/UL (Negative); Mucus Urine Rare /lpf; Nitrate Urine Negative (Negative); Protein Urine 2+ mg/dL (Negative); RBC Urine 0-2 /hpf (0-2); Specific Grav Ur 1.014 (1.001-1.035); Urobilinogen Urine Negative mg/dL (<2.0); WBC Urine 0-3 /hpf
[2022-04-26 20:24] LABS: Creatinine Urine 172.9 mg/dL
[2022-04-26 20:25] LABS: Sodium Urine Random 19 meq/L
[2022-04-26 22:15] LABS: Anion Gap 12 mmol/L (8-16); Blood Urea Nitrogen 105 mg/dL (7-17); Calcium 8.1 mg/dL (8.4-10.2); Carbon Dioxide 21 mmol/L (22-30); Chloride 104 mmol/L (98-107); Estimated Glomerular Filt Rate 7; Glucose 90 mg/dL (65-110); Potassium 4.9 mmol/L (3.4-5.0); Sodium 137 mmol/L (137-145)
[2022-04-27] VITALS (14 sets, daily range): BP systolic 129–137; BP diastolic 32–47; PULSE 55–64; RESP 16–18; TEMP 36.6–37.1; O2SAT 90–99
[2022-04-27] MEDS: ATORVASTATIN 20 MG TABLET 60 MG PO ×2 (02:39→21:15)
[2022-04-27] MEDS: ASPIRIN 81 MG ENTERIC TABLET PO ×2 (02:42→21:15)
[2022-04-27 05:25] LABS: Basophils Absolute Auto 0.1 K/mm3 (0.0-0.1); Basophils Percent Auto 0.8 % (0.2-1.2); Eosinophils Absolute Auto 0.6 K/mm3 (0-0.3); Eosinophils Percent Auto 5.9 % (0-4.4); Hematocrit 23.2 % (37.0-47.0); Hemoglobin 7.2 g/dL (12.0-15.0); Immature Granulocyte Absolute 0.07 K/mm3 (0.00-0.031); Immature Granulocyte Percent A 0.8 % (0-0.5); Lymphocytes Absolute Auto 1.47 K/mm3 (0.9-3.2); Lymphocytes Percent Auto 15.8 % (18.3-44.2); Mean Corpuscular Hemoglobin 28.6 pg (26-34); Mean Corpuscular Volume 92.1 fl (80-100); Mean Platelet Volume 9.8 fl (7.4-10.4); Monocytes Absolute Auto 0.8 K/mm3 (0.1-0.6); Monocytes Percent Auto 8.7 % (2.6-8.5); Neutrophils Absolute Auto 6.4 K/mm3 (1.3-6.7); Platelet Count Result 211 k/mm3 (150-375); Red Blood Count 2.52 M/mm3 (4.2-5.4); Red Cell Distribution Width 15.8 % (11.5-14.5); White Blood Count 9.3 K/mm3 (4.5-10.0)
[2022-04-27 05:35] LABS: Lactic Acid Reflex 0.6 mmol/L (0.7-2.0)
[2022-04-27] MEDS: SODIUM CHLORIDE 0.9% IV 1,000 ML 999 ML (05:41)
[2022-04-27 05:47] LABS: Potassium 4.5 mmol/L (3.4-5.0)
[2022-04-27 05:49] LABS: Alanine Aminotransferase 16 U/L (6-35); Albumin Level 3.2 g/dL (3.5-5.1); Alkaline Phosphatase 97 U/L (38-126); Anion Gap 11 mmol/L (8-16); Aspartate Amino Transferase 23 U/L (14-36); Bilirubin,Total 0.3 mg/dL (0.2-1.3); Blood Urea Nitrogen 102 mg/dL (7-17); Calcium 7.9 mg/dL (8.4-10.2); Carbon Dioxide 21 mmol/L (22-30); Chloride 105 mmol/L (98-107); Estimated Glomerular Filt Rate 7; Glucose 67 mg/dL (65-110); Magnesium 3.3 mg/dL (1.6-2.3); Phosphorus 4.9 mg/dL (2.5-4.5); Sodium 137 mmol/L (137-145)
[2022-04-27 08:32] LABS: Glucose Point of Care 74 mg/dl (65-105)
[2022-04-27] MEDS: PANTOPRAZOLE 40 MG TABLET PO (08:36)
[2022-04-27] MEDS: ISOSORBIDE MONONITRATE 30 MG TAB.ER.24H 90 MG PO (08:37)
[2022-04-27] MEDS: MAGNESIUM OXIDE 400 MG TABLET PO ×2 (08:37→16:13)
[2022-04-27] MEDS: NIFEdipine 30 MG TAB.ER.24 90 MG PO (08:37)
[2022-04-27] MEDS: CLOPIDOGREL BISULFATE 75 MG TABLET PO (08:37)
[2022-04-27] MEDS: carvediloL 12.5 MG TABLET PO ×2 (08:38→21:16)
--- NOTE | 2022-04-27 09:06 | PM.CNNEP ---
Assessment and Plan Assessment and plan (1) Acute kidney injury superimposed on CKD: Code(s): N17.9 - Acute kidney failure, unspecified; N18.9 - Chronic kidney disease, unspecified Status: Acute Assessment and Plan: Leidy has chronic kidney disease. This is due to hypertension and diabetes. Her baseline GFR runs in the mid to high teens. She has acute kidney injury. I am not sure of what her creatinine was at [facility] last weekend but it is certainly worse now than her baseline. it has risen from around 3 to around 6. She does have signs of volume overload . In addition, an echocardiogram done in October shows that she does have diastolic dysfunction but not much systolic dysfunction. I doubt if pre renal azotemia is playing a role, however, interestingly, her urine electrolytes show pre renal azotemia.. It is possible that she might have renal venous hypertension due to the volume overload. This is the case then diuresis should help her creatinine. She needs diuresis anyway because she has pulmonary edema and swelling. She might have progression of chronic kidney disease as well. Sometimes this happens in a stepwise progression. Infection could be playing a role. her urine is clear. She does not have a fever. And her white count is okay so I think this is less likely. Obstruction is a possibility. Will see with the renal ultrasound shows. Rhabdomyolysis is always a possibility as well since she is on a statin. Will check a CPK. It is possible that her kidneys are just wearing out. If this is the case she might need dialysis to get better. The patient and I discussed this possibility. At this point will continue diuretics, check urine lytes and a CPK and renal ultrasound. (2) Volume overload: Code(s): E87.70 - Fluid overload, unspecified Status: Acute Assessment and Plan: The patient has volume overload. Diastolic dysfunction could do this or possibly just progressive renal failure. Will give diuretics. (3) Obstructive sleep apnea: Code(s): G47.33 - Obstructive sleep apnea (adult) (pediatric) Status: Acute Assessment and Plan: She uses a CPAP machine (4) Diabetes: Code(s): E11.9 - Type 2 diabetes mellitus without complications Status: Chronic Assessment and Plan: she is on insulin and sliding scale per hospitalists. (5) PUD (peptic ulcer disease): Code(s): K27.9 - Peptic ulcer, site unspecified, unspecified as acute or chronic, without hemorrhage or perforation Status: Acute Assessment and Plan: She is on pantoprazole (6) Heart disease: Code(s): I51.9 - Heart disease, unspecified Status: Acute Assessment and Plan: she has had myocardial infarction and also bypass. She is not having any chest pain now. (7) HTN (hypertension): Code(s): I10 - Essential (primary) hypertension Status: Chronic Assessment and Plan: Her blood pressure is under good control. History of Present Illness Reason for Consult Consult date: 04/27/22 Chief Complaint Chief complaint: ckd/arf History of Present Illness Narrative: Leidy is a very pleasant 76-year-old lady who has chronic kidney disease with a baseline creatinine of between 2 and 3, recurrent acute kidney injury, diastolic dysfunction, coronary disease status post bypass, diabetes, obstructive sleep apnea on a CPAP machine, and peptic ulcer disease. The patient was just in [facility] in [place] because of shortness of breath. The told that she had fluid overload and her kidneys were not working well , although she says that they told her that her kidneys were better by discharge. During the hospital stay they gave her extra diuretics and also did a thoracentesis. they sent her home on the same medicines she was admitted on. Records are unavailable. During the week the patient felt pret
[2022-04-27 10:11] LABS: Creatine Kinase 98 U/L (30-135)
--- NOTE | 2022-04-27 10:59 | PM.IMPN ---
Progress Note: A&P Assessment and Plan (1) Acute kidney injury superimposed on CKD: Code(s): N17.9 - Acute kidney failure, unspecified; N18.9 - Chronic kidney disease, unspecified Status: Acute Assessment and Plan: - Dr. Esquivel has been consulted. - monitor electrolytes. - Patient does have renal mass. She will need an MRI. Will defer to Nephrology For timing As she will need contrast. (2) CHF exacerbation: Code(s): I50.9 - Heart failure, unspecified Status: Acute Assessment and Plan: - last echo was on 10/14/2021 which was read as no following ?1. Complete two-dimensional, color flow and Doppler transthoracic echocardiogram is performed. ? 2. Left ventricular chamber dimension is normal. ? 3. Left ventricular systolic function is normal, estimated at 65-70%. ? 4. There is mildly increased left ventricular wall thickness. ? 5. The left ventricular diastolic function is grade II diastolic dysfunction. ? 6. The basal inferior wall is akinetic. ? 7. The apical inferior wall, mid inferior wall, basal inferolateral wall, and mid inferolateral wall are hypokinetic. ? 8. Left atrial chamber dimension is mildly enlarged. ? 9. There is mild to moderate mitral valve regurgitation. ? 10. There is mild tricuspid valve regurgitation. ? 11. Mild pulmonary hypertension, estimated pulmonary arterial systolic pressure is 42 mmHg. ? 12. There is mild pulmonic regurgitation. ? 13. There is small pericardial effusion. - she was given a dose of Lasix in the emergency room. - I will repeat her BMP tonight. -The patient is on Coreg may consider Cardiology consult. (3) CAD (coronary artery disease): Code(s): I25.10 - Atherosclerotic heart disease of [place] coronary artery without angina pectoris Status: Acute Assessment and Plan: the patient has a history of 2 coronary artery stents. -Continue with atorvastatin -continue with Coreg - continue with Plavix (4) HTN (hypertension): Code(s): I10 - Essential (primary) hypertension Status: Chronic Assessment and Plan: -continue with Coreg -continue with hydralazine (5) Anemia: Code(s): D64.9 - Anemia, unspecified Status: Chronic Assessment and Plan: Most likely related to the chronic renal disease. Nephrology has been consulted (6) Diabetes: Code(s): E11.9 - Type 2 diabetes mellitus without complications Status: Chronic Assessment and Plan: - Accu-Cheks AC and HS with sliding scale insulin. -Hold glimepiride (7) Obstructive sleep apnea: Code(s): G47.33 - Obstructive sleep apnea (adult) (pediatric) Status: Acute Assessment and Plan: titrate CPAP as per home settings. Subjective Date/time seen: 04/27/22 10:59 no complaints Exam Const: General: cooperative, comfortable, no acute distress, well developed, alert, awake, Physically active, average body habitus and well nourished Nutritional Appearance: average body habitus and well nourished Orientation/consciousness: oriented to person, oriented to place, oriented to time and patient oriented x3 Limitations: no limitations Other: the patient appears to be a sallow color HENMT: Head: normal to inspection, No palpable skull fracture present, normocephalic, atraumatic and abrasion Ears: hearing grossly normal bilaterally, external ears normal, hearing grossly impaired and TM abnormal with loss of landmarks on the right, perforated with bloody discharge on the left and scarred on the right Face/Nose/Sinus: Normal external nose present and Normal nares present Mouth: Yes Normal oral and palatal mucosa present Throat: posterior oropharynx normal Eyes: General: appearance normal, both eyes and all related structures Alignment and Position: alignment normal Periorbital: periorbital findings normal Eyelids: eyelids normal Sclera: sclerae normal Pupils: Equal, round and reactive pupils present
[2022-04-27 12:07] LABS: Glucose Point of Care 197 mg/dl (65-105)
--- NOTE | 2022-04-27 15:23 | PM.CNCAR ---
Assessment and Plan Assessment and plan (1) Chronic diastolic CHF (congestive heart failure): Code(s): I50.32 - Chronic diastolic (congestive) heart failure Status: Acute Assessment and Plan: Patient with chronic diastolic heart failure. Treated for acute CHF at [facility] in [place] 1.5 weeks ago; had thoracentesis and diuresed. Actually looks pretty good now, not much shortness of breath or SOSA and lung are fairly clear by x-ray elevated proBNP on admission may be related to her acute renal failure rather than a reflection of decompensated CHF. Very difficult balance between volume overload and happy kidneys versus compensated diastolic CHF and acute renal failure. Doubt the patient's renal function will improve to the point that she might benefit from an SGOT 2 inhibitor , as GFR runs less than 20.. (2) Acute kidney injury superimposed on CKD: Code(s): N17.9 - Acute kidney failure, unspecified; N18.9 - Chronic kidney disease, unspecified Status: Acute Assessment and Plan: Acute renal failure on chronic kidney disease. Holding diuretic for few days. Dr. Esquivel following. (3) CAD (coronary artery disease): Code(s): I25.10 - Atherosclerotic heart disease of [place] coronary artery without angina pectoris Status: Acute Assessment and Plan: History of CAD, CABG, non-STEMI 10/2021. Stable with no angina continue medical therapy for CAD with aspirin, statin, blood pressure control on dual anti-platelet therapy; I presume due to her CAD, recent non-STEMI in October, and moderate carotid disease. (4) Essential hypertension: Code(s): I10 - Essential (primary) hypertension Status: Acute Assessment and Plan: Blood pressure at goal. History of Present Illness History of Present Illness Consult date/time: 04/27/22 15:23 Reason For Visit: ckd/arf Narrative: Leidy but there is a 76-year-old female whom I was asked to see at the request of NAY shea for my advice and opinion regarding her CHF, CAD and kidney disease, in consultation. The patient is followed by Dr. Julien for her CAD history of CABG in 2011. She had a STEMI 10/2021 and cardiac catheterization showed that the SVG to the ramus was likely occluded. The SVG to the PDA was not visualized is probably occluded. No intervention done. Hospitalized in December in [place] with an episode of SVT. Elevated troponins. Stress test was abnormal but discharged on medical therapy. Last seen by Dr. Julien 02/13/2022 feeling better , taking furosemide 40 mg daily. The pt was hospitalized at [facility] in [place] (no beds at [facility]) for a week with fluid overload and had right thoracentesis. She was discharged Thursday. Medications were changed during that hospitalization and furosemide was increased to 60 mg daily among other changes. Patient seemed to be confused about her medication changes and was getting weaker, couldn't walk well, had anorexia, was sleepy and shaky. No SOB. LE edema was worse. The family brought her to the emergency room. She appeared to be in mild heart failure but acute renal failure and has been admitted. Her BUN is 100 and a creatinine of 6.0, with a baseline 68/3.0. She was given a dose of furosemide IV in the ER, but later rec'd 1 liter IV fluids. Her furosemide has been held. Review of Systems Constitutional: Constitutional: Denies fever(s), Reports lethargy and Reports weakness Eyes: Eyes: Reports no additional eye complaints ENT: Denies epistaxis Cardiovascular: Cardiovascular: Denies chest pain, Denies pedal edema, Denies lightheadedness and Denies dyspnea Respiratory: Respiratory: Denies chest congestion and Denies dyspnea Gastrointestinal: Gastrointestinal: Denies abdominal pain, Denies hematochezia and Reports nausea (anorexia) Musculoskeletal: Musculoskeletal: Reports back pain Comments: Too weak to walk Int
[2022-04-27 17:32] LABS: Glucose Point of Care 102 mg/dl (65-105)
[2022-04-27 21:39] LABS: Hemoglobin A1C 5.4 % (<5.7)
[2022-04-27 22:38] LABS: Glucose Point of Care 163 mg/dl (65-105)
[2022-04-28] VITALS (13 sets, daily range): BP systolic 126–141; BP diastolic 36–48; PULSE 55–65; RESP 16–20; TEMP 36.5–36.8; O2SAT 90–99
--- NOTE | 2022-04-28 05:45 | PM.PNNEP ---
Progress Note: A&P Assessment and Plan (1) Acute kidney injury superimposed on CKD: Code(s): N17.9 - Acute kidney failure, unspecified; N18.9 - Chronic kidney disease, unspecified Status: Acute Assessment and Plan: Leidy has chronic kidney disease. This is due to hypertension and diabetes. Her baseline GFR runs in the mid to high teens. She has acute kidney injury. her creatinine in February 2021 was 3.2, and january of 2022 was 3.16, then creatinine 3.6, on 04/21 at [facility] (seen on my phone in care everywhere) and now 6. Renal ultrasound shows no hydro. Urinalysis is bland. There is some protein. Urine electrolytes show pre renal status She does have signs of volume overload . In addition, an echocardiogram done in October shows that she does have diastolic dysfunction but not much systolic dysfunction. I doubt if pre renal azotemia is playing a role, however, interestingly, her urine electrolytes show pre renal azotemia.. It is possible that she might have renal venous hypertension due to the volume overload. This is the case then diuresis should help her creatinine. She needs diuresis anyway because she has pulmonary edema and swelling. progression of kidney ds probably explains the creatinine rise of 3.16 to 3.6 over the last year but not necessarily the rise to 6. Infection could be playing a role. her urine is clear. She does not have a fever. And her white count is okay so I think this is less likely. the cxr shows edema and effusions, not infiltrates. there is no obstruction. CPK is normal having volume overload and prerenal numbers suggest CHF and cardiorenal syndrome. hoever her echo in October showed reasonable LV function. at this point will hold off on diuretics and see where the fluid balance goes. at some point she will have both sob and bad kidneys at which time she would need dialysis. (2) Volume overload: Code(s): E87.70 - Fluid overload, unspecified Status: Acute Assessment and Plan: The patient has volume overloaded by cxr but not severely and she is not sob and on no oxygen so will hold off on diuretics. (3) Obstructive sleep apnea: Code(s): G47.33 - Obstructive sleep apnea (adult) (pediatric) Status: Acute Assessment and Plan: She uses a CPAP machine (4) Diabetes: Code(s): E11.9 - Type 2 diabetes mellitus without complications Status: Chronic Assessment and Plan: she is on insulin and sliding scale per hospitalists. (5) PUD (peptic ulcer disease): Code(s): K27.9 - Peptic ulcer, site unspecified, unspecified as acute or chronic, without hemorrhage or perforation Status: Acute Assessment and Plan: She is on pantoprazole (6) Heart disease: Code(s): I51.9 - Heart disease, unspecified Status: Acute Assessment and Plan: she has had myocardial infarction and also a bypass. She is not having any chest pain now. cardiology yi the case. (7) HTN (hypertension): Code(s): I10 - Essential (primary) hypertension Status: Chronic Assessment and Plan: Her blood pressure is under good control. Subjective Date/time seen: 04/28/22 05:45 Interval history: Leidy is feeling a little better. She is not short of breath. She feels like her swelling is little better. No chest pain. Did well on her personal CPAP overnight. Review of Systems Cardiovascular: Cardiovascular: Reports no additional cardiovascular complaints Respiratory: Respiratory: Reports no additional respiratory complaints Gastrointestinal: Gastrointestinal: Reports no additional gastrointestinal complaints Genitourinary: Genitourinary: Reports no additional female genitourinary complaints Exam Narrative: WDWN in NAD skin no rash head ncat lungs clear cor reg no rub abd BS+ nontender and soft ext 1 to 2+ presacral edema. Objective Data Vital Signs Vital Si
[2022-04-28 06:14] LABS: Albumin Level 2.9 g/dL (3.5-5.1); Anion Gap 14 mmol/L (8-16); Blood Urea Nitrogen 92 mg/dL (7-17); Calcium 7.6 mg/dL (8.4-10.2); Carbon Dioxide 21 mmol/L (22-30); Chloride 104 mmol/L (98-107); Estimated Glomerular Filt Rate 9; Glucose 90 mg/dL (65-110); Phosphorus 5.1 mg/dL (2.5-4.5); Potassium 4.1 mmol/L (3.4-5.0); Sodium 139 mmol/L (137-145)
[2022-04-28 08:36] LABS: Glucose Point of Care 101 mg/dl (65-105)
[2022-04-28] MEDS: MAGNESIUM OXIDE 400 MG TABLET PO ×2 (09:17→17:12)
[2022-04-28] MEDS: PANTOPRAZOLE 40 MG TABLET PO (09:17)
[2022-04-28] MEDS: ISOSORBIDE MONONITRATE 30 MG TAB.ER.24H 90 MG PO (09:17)
[2022-04-28] MEDS: CLOPIDOGREL BISULFATE 75 MG TABLET PO (09:18)
[2022-04-28] MEDS: hydrALAZINE HCL 50 MG TABLET PO ×3 (09:18→17:12)
[2022-04-28] MEDS: carvediloL 12.5 MG TABLET PO ×2 (09:18→21:09)
[2022-04-28] MEDS: NIFEdipine 30 MG TAB.ER.24 90 MG PO (09:19)
--- NOTE | 2022-04-28 10:18 | PM.PNCARD ---
Progress Note: A&P Assessment and Plan (1) CHF exacerbation: Code(s): I50.9 - Heart failure, unspecified Status: Acute Assessment and Plan: ?Treated for acute CHF at [facility] in [place] 1.5 weeks ago; had thoracentesis and diuresed. ?elevated proBNP on admission may be related to her acute renal failure rather than a reflection of decompensated CHF. ?Very difficult balance between volume overload and happy kidneys versus compensated diastolic CHF and acute renal failure. ?Patient appears fairly compensated on today's exam. Diuretics on hold due to MASSIMO on CKD, which has been improving. Given MASSIMO, would continue holding diuretics for now. Monitor I/Os. (2) Chronic diastolic CHF (congestive heart failure): Code(s): I50.32 - Chronic diastolic (congestive) heart failure Status: Acute (3) Hx of CABG: Code(s): Z95.1 - Presence of aortocoronary bypass graft Status: Acute Assessment and Plan: Continue DAPT, beta julio cesar, statin. (4) Acute kidney injury superimposed on CKD: Code(s): N17.9 - Acute kidney failure, unspecified; N18.9 - Chronic kidney disease, unspecified Status: Acute Assessment and Plan: As per Nephrology Time Spent With Patient Time with patient: 15 - 25 minutes Subjective Date/time seen: 04/28/22 10:18 Interval history: Reason for visit: Decompensated diastolic heart failure This is a patient who we were consulted for diastolic heart failure exacerbation. Patient seen in follow-up visit. Denies chest pain, shortness of breath, orthopnea. Reports significant improvement in lower extremity edema. Review of Systems Constitutional: Constitutional: Denies body ache(s), Denies chills, Denies fatigue and Denies weakness Cardiovascular: Cardiovascular: Reports as per HPI, Denies chest pain, Denies lightheadedness and Denies palpitations Respiratory: Respiratory: Denies cough and Denies dyspnea Gastrointestinal: Gastrointestinal: Denies abdominal pain, Denies nausea and Denies vomiting Musculoskeletal: Musculoskeletal: Reports no additional musculoskeletal complaints Integumentary/Breasts: Skin/Breast: Reports system reviewed and no additional complaints, except as docu Neurologic: Reports system reviewed and no additional complaints, except as documented Psychiatric: Psychiatric: Reports no additional psychiatric complaints Hematologic/Lymphatic: Hematologic/Lymphatic: Denies easy bleeding and Denies easy bruising Exam Const: General: comfortable and no acute distress Eyes: General: appearance normal, both eyes and all related structures Neck: Neck: no JVD Resp: Effort & Inspection: normal respiratory effort Auscultation: clear to auscultation bilaterally Cardio: Rate: regular rate Rhythm: regular rhythm Heart sounds: no murmurs GI: GI Palp: Yes Soft to palpation and No Tenderness to palpation present (GI) Skin: General skin exam: normal color Neuro: General: gait normal Extrem: General: no edema Psych: Mental Status: mental status grossly normal Objective Data Vital Signs Vital Signs: Vital Signs - 24 hr 04/27/22 14:36 04/27/22 12:00 04/27/22 16:00 Temperature 36.6 C Pulse Rate 64 62 62 Respiratory Rate 18 Blood Pressure 132/44 L Pulse Oximetry 96 Oxygen Delivery 04/27/22 20:23 04/27/22 21:16 04/28/22 03:34 Temperature 37.1 C 36.5 C Pulse Rate 64 64 57 L Respiratory Rate 18 20 Blood Pressure 129/47 L 141/48 H Pulse Oximetry 90 94 Oxygen Delivery 04/27/22 22:30 04/28/22 03:53 04/27/22 20:00 Temperature Pulse Rate 64 61 64 Respiratory Rate Blood Pressure Pulse Oximetry 93 92 Oxygen Delivery CPAP CPAP 04/28/22 00:00 04/28/22 04:00 04/28/22 09:18 Temperature Pulse Rate 57 L 57 L 62 Respiratory Rate Blood Pressure Pulse Oximetry Oxygen Delivery Intake/Output Intake/Output: Intake & Output 04/25/22 04/26/22 04/27/22 04/28/22
--- NOTE | 2022-04-28 11:37 | PM.IMPN ---
Progress Note: A&P Assessment and Plan (1) Acute kidney injury superimposed on CKD: Code(s): N17.9 - Acute kidney failure, unspecified; N18.9 - Chronic kidney disease, unspecified Status: Acute Assessment and Plan: - Dr. Esquivel has been consulted. - monitor electrolytes. - Patient does have renal mass. She will need an MRI. Will defer to Nephrology For timing As she will need contrast. (2) CHF exacerbation: Code(s): I50.9 - Heart failure, unspecified Status: Acute Assessment and Plan: - last echo was on 10/14/2021 which was read as no following ?1. Complete two-dimensional, color flow and Doppler transthoracic echocardiogram is performed. ? 2. Left ventricular chamber dimension is normal. ? 3. Left ventricular systolic function is normal, estimated at 65-70%. ? 4. There is mildly increased left ventricular wall thickness. ? 5. The left ventricular diastolic function is grade II diastolic dysfunction. ? 6. The basal inferior wall is akinetic. ? 7. The apical inferior wall, mid inferior wall, basal inferolateral wall, and mid inferolateral wall are hypokinetic. ? 8. Left atrial chamber dimension is mildly enlarged. ? 9. There is mild to moderate mitral valve regurgitation. ? 10. There is mild tricuspid valve regurgitation. ? 11. Mild pulmonary hypertension, estimated pulmonary arterial systolic pressure is 42 mmHg. ? 12. There is mild pulmonic regurgitation. ? 13. There is small pericardial effusion. - she was given a dose of Lasix in the emergency room. - I will repeat her BMP tonight. -The patient is on Coreg appreciate cardiology input (3) CAD (coronary artery disease): Code(s): I25.10 - Atherosclerotic heart disease of [place] coronary artery without angina pectoris Status: Acute Assessment and Plan: the patient has a history of 2 coronary artery stents. -Continue with atorvastatin -continue with Coreg - continue with Plavix (4) HTN (hypertension): Code(s): I10 - Essential (primary) hypertension Status: Chronic Assessment and Plan: -continue with Coreg -continue with hydralazine (5) Anemia: Code(s): D64.9 - Anemia, unspecified Status: Chronic Assessment and Plan: Most likely related to the chronic renal disease. Nephrology has been consulted (6) Diabetes: Code(s): E11.9 - Type 2 diabetes mellitus without complications Status: Chronic Assessment and Plan: - Accu-Cheks AC and HS with sliding scale insulin. -Hold glimepiride (7) Obstructive sleep apnea: Code(s): G47.33 - Obstructive sleep apnea (adult) (pediatric) Status: Acute Assessment and Plan: titrate CPAP as per home settings. Subjective Date/time seen: 04/28/22 11:37 denies any new complaints, feels little better than Exam Const: General: cooperative, comfortable, no acute distress, well developed, alert, awake, Physically active, average body habitus and well nourished Nutritional Appearance: average body habitus and well nourished Orientation/consciousness: oriented to person, oriented to place, oriented to time and patient oriented x3 Limitations: no limitations Other: the patient appears to be a sallow color HENMT: Head: normal to inspection, No palpable skull fracture present, normocephalic, atraumatic and abrasion Ears: hearing grossly normal bilaterally, external ears normal, hearing grossly impaired and TM abnormal with loss of landmarks on the right, perforated with bloody discharge on the left and scarred on the right Face/Nose/Sinus: Normal external nose present and Normal nares present Mouth: Yes Normal oral and palatal mucosa present Throat: posterior oropharynx normal Eyes: General: appearance normal, both eyes and all related structures Alignment and Position: alignment normal Periorbital: periorbital findings normal Eyelids: eyelids normal Sclera: sclerae normal Pupils: Equal, ro
[2022-04-28 12:21] LABS: Glucose Point of Care 163 mg/dl (65-105)
[2022-04-28 17:07] LABS: Glucose Point of Care 142 mg/dl (65-105)
[2022-04-28] MEDS: ATORVASTATIN 20 MG TABLET 60 MG PO (21:09)
[2022-04-28] MEDS: ASPIRIN 81 MG ENTERIC TABLET PO (21:10)
[2022-04-28 22:27] LABS: Glucose Point of Care 121 mg/dl (65-105)
[2022-04-29] VITALS (12 sets, daily range): BP systolic 133–137; BP diastolic 44–60; PULSE 56–66; RESP 12–20; TEMP 36.2–36.8; O2SAT 90–93
[2022-04-29] MEDS: ACETAMINOPHEN 325 MG TABLET 650 MG PO (06:00)
[2022-04-29 06:47] LABS: Anion Gap 11 mmol/L (8-16); Blood Urea Nitrogen 94 mg/dL (7-17); Calcium 7.7 mg/dL (8.4-10.2); Carbon Dioxide 20 mmol/L (22-30); Chloride 106 mmol/L (98-107); Estimated Glomerular Filt Rate 10; Glucose 97 mg/dL (65-110); Phosphorus 4.7 mg/dL (2.5-4.5); Potassium 4.5 mmol/L (3.4-5.0); Sodium 137 mmol/L (137-145)
[2022-04-29] MEDS: ISOSORBIDE MONONITRATE 30 MG TAB.ER.24H 90 MG PO (09:07)
[2022-04-29] MEDS: hydrALAZINE HCL 50 MG TABLET PO ×3 (09:07→16:53)
[2022-04-29] MEDS: CLOPIDOGREL BISULFATE 75 MG TABLET PO (09:08)
[2022-04-29] MEDS: PANTOPRAZOLE 40 MG TABLET PO (09:08)
[2022-04-29] MEDS: carvediloL 12.5 MG TABLET PO ×2 (09:08→22:13)
[2022-04-29] MEDS: MAGNESIUM OXIDE 400 MG TABLET PO ×2 (09:08→16:53)
[2022-04-29] MEDS: NIFEdipine 30 MG TAB.ER.24 90 MG PO (09:08)
[2022-04-29 09:13] LABS: Basophils Absolute Auto 0.1 K/mm3 (0.0-0.1); Basophils Percent Auto 0.9 % (0.2-1.2); Eosinophils Absolute Auto 0.6 K/mm3 (0-0.3); Eosinophils Percent Auto 6.8 % (0-4.4); Hematocrit 24.3 % (37.0-47.0); Hemoglobin 7.7 g/dL (12.0-15.0); Immature Granulocyte Absolute 0.04 K/mm3 (0.00-0.031); Immature Granulocyte Percent A 0.4 % (0-0.5); Lymphocytes Absolute Auto 1.22 K/mm3 (0.9-3.2); Lymphocytes Percent Auto 13.6 % (18.3-44.2); Mean Corpuscular HGB Conc 31.7 g/dl (32-36); Mean Corpuscular Hemoglobin 29.1 pg (26-34); Mean Corpuscular Volume 91.7 fl (80-100); Monocytes Absolute Auto 0.7 K/mm3 (0.1-0.6); Monocytes Percent Auto 8.1 % (2.6-8.5); Neutrophils Absolute Auto 6.3 K/mm3 (1.3-6.7); Neutrophils Percent Auto 70.2 % (45.5-73.1); Platelet Count Result 197 k/mm3 (150-375); Red Blood Count 2.65 M/mm3 (4.2-5.4); Red Cell Distribution Width 15.9 % (11.5-14.5)
--- NOTE | 2022-04-29 10:32 | PM.IMPN ---
Progress Note: A&P Assessment and Plan (1) Acute kidney injury superimposed on CKD: Code(s): N17.9 - Acute kidney failure, unspecified; N18.9 - Chronic kidney disease, unspecified Status: Acute Assessment and Plan: - Dr. Esquivel has been consulted. - monitor electrolytes. - Patient does have renal mass. She will need an MRI. Will defer to Nephrology for timing of imaging as patient will need contrast. - Creatinine is slowly improving. (2) CHF exacerbation: Code(s): I50.9 - Heart failure, unspecified Status: Acute Assessment and Plan: Appears compensated -The patient is on Coreg appreciate cardiology input (3) CAD (coronary artery disease): Code(s): I25.10 - Atherosclerotic heart disease of [place] coronary artery without angina pectoris Status: Acute Assessment and Plan: the patient has a history of 2 coronary artery stents. -Continue with atorvastatin -continue with Coreg - continue with Plavix (4) HTN (hypertension): Code(s): I10 - Essential (primary) hypertension Status: Chronic Assessment and Plan: -continue with Coreg -continue with hydralazine (5) Anemia: Code(s): D64.9 - Anemia, unspecified Status: Chronic Assessment and Plan: Most likely related to the chronic renal disease. (6) Diabetes: Code(s): E11.9 - Type 2 diabetes mellitus without complications Status: Chronic Assessment and Plan: - Accu-Cheks AC and HS with sliding scale insulin. -Hold glimepiride (7) Obstructive sleep apnea: Code(s): G47.33 - Obstructive sleep apnea (adult) (pediatric) Status: Acute Assessment and Plan: titrate CPAP as per home settings. Subjective Date/time seen: 04/29/22 10:32 Patient denies any new complaints Exam Const: General: cooperative, comfortable, no acute distress, well developed, alert, awake, Physically active, average body habitus and well nourished Nutritional Appearance: average body habitus and well nourished Orientation/consciousness: oriented to person, oriented to place, oriented to time and patient oriented x3 Limitations: no limitations Other: the patient appears to be a sallow color HENMT: Head: normal to inspection, No palpable skull fracture present, normocephalic, atraumatic and abrasion Ears: hearing grossly normal bilaterally, external ears normal, hearing grossly impaired and TM abnormal with loss of landmarks on the right, perforated with bloody discharge on the left and scarred on the right Face/Nose/Sinus: Normal external nose present and Normal nares present Mouth: Yes Normal oral and palatal mucosa present Throat: posterior oropharynx normal Eyes: General: appearance normal, both eyes and all related structures Alignment and Position: alignment normal Periorbital: periorbital findings normal Eyelids: eyelids normal Sclera: sclerae normal Pupils: Equal, round and reactive pupils present EOM: EOMs intact bilaterally Neck: Neck: normal visual inspection, full ROM, no lymphadenopathy, trachea midline and supple Chest: Chest palpation & inspection: normal inspection of the chest Resp: Effort & Inspection: normal respiratory effort Auscultation: clear to auscultation bilaterally Cardio: Palpation: normal PMI Rate: regular rate Rhythm: regular rhythm and abnormal rhythm Heart sounds: S1 normal heart sound present and S2 normal heart sound present Peripheral pulses: Peripheral pulses 2+ throughout Other: atrial fibrillation GI: Inspection: normal to inspection Auscultation: normal bowel sounds Rectal Exam: deferred : General: Yes no CVA tenderness Back/Spine/Pelvis: Back: no CVA tenderness Cervical Spine: cervical ROM normal Thoracic/Lumbar Spine: thoracic and lumbar spine normal to inspection Pelvis: no pain with anterior-posterior compression Skin: General skin exam: normal color Lesions: no lesions Rashes: no rashes
[2022-04-29 12:03] LABS: Glucose Point of Care 157 mg/dl (65-105)
[2022-04-29 16:44] LABS: Glucose Point of Care 131 mg/dl (65-105)
--- NOTE | 2022-04-29 16:50 | PM.PNNEP ---
Progress Note: A&P Assessment and Plan (1) Acute kidney injury superimposed on CKD: Code(s): N17.9 - Acute kidney failure, unspecified; N18.9 - Chronic kidney disease, unspecified Status: Acute Assessment and Plan: Leidy has chronic kidney disease. This is due to hypertension and diabetes. Her baseline GFR runs in the mid to high teens. She has acute kidney injury. her creatinine in February 2021 was 3.2, and january of 2022 was 3.16, then creatinine 3.6, on 04/21 at [facility] (seen on my phone in care everywhere) and then 6 on admission. Renal ultrasound shows no hydro. Urinalysis is bland. There is some protein. Urine electrolytes show pre renal status Diuretics have been on hold and the creatinine has come down. It is now 4.0. At some point she is going to need diuretics again. Will keep a close eye on exam. (2) Volume overload: Code(s): E87.70 - Fluid overload, unspecified Status: Acute Assessment and Plan: The patient has volume overloaded by cxr but not severely and she is not sob and on no oxygen so will continue to hold off on diuretics. (3) Obstructive sleep apnea: Code(s): G47.33 - Obstructive sleep apnea (adult) (pediatric) Status: Acute Assessment and Plan: She uses a CPAP machine (4) Diabetes: Code(s): E11.9 - Type 2 diabetes mellitus without complications Status: Chronic Assessment and Plan: she is on insulin and sliding scale per hospitalists. (5) PUD (peptic ulcer disease): Code(s): K27.9 - Peptic ulcer, site unspecified, unspecified as acute or chronic, without hemorrhage or perforation Status: Acute Assessment and Plan: She is on pantoprazole (6) Heart disease: Code(s): I51.9 - Heart disease, unspecified Status: Acute Assessment and Plan: she has had myocardial infarction and also a bypass. She is not having any chest pain now. cardiology yi the case. (7) HTN (hypertension): Code(s): I10 - Essential (primary) hypertension Status: Chronic Assessment and Plan: Her blood pressure is under good control. (8) Complex renal cyst: Code(s): N28.1 - Cyst of kidney, acquired Status: Acute Assessment and Plan: Will check MRI without contrast. Options are limited for following because of her CKD. Subjective Date/time seen: 04/29/22 16:50 Interval history: Leidy is feeling better. Eager for discharge. No shortness of breath lying flat. Exam Narrative: WDWN in NAD skin no rash head ncat lungs clear cor reg no rub abd BS+ nontender and soft ext 1+ presacral edema. Objective Data Vital Signs Vital Signs: Vital Signs - 24 hr 04/28/22 21:04 04/28/22 21:09 04/28/22 20:00 Temperature 36.8 C Pulse Rate 65 65 62 Respiratory Rate 18 Blood Pressure 130/48 L Pulse Oximetry 90 Oxygen Delivery Fraction of Inspired Oxygen 04/28/22 22:19 04/28/22 22:19 04/29/22 00:00 Temperature Pulse Rate 65 65 Respiratory Rate Blood Pressure Pulse Oximetry 92 92 Oxygen Delivery CPAP CPAP Fraction of Inspired Oxygen 21 04/29/22 04:16 04/29/22 04:00 04/29/22 04:39 Temperature 36.2 C L Pulse Rate 62 58 L 58 L Respiratory Rate 20 Blood Pressure 133/48 L Pulse Oximetry 91 90 Oxygen Delivery CPAP Fraction of Inspired Oxygen 04/29/22 08:00 04/29/22 13:40 Temperature 36.8 C Pulse Rate 59 L 56 L Respiratory Rate 12 Blood Pressure 137/44 L Pulse Oximetry 93 Oxygen Delivery Fraction of Inspired Oxygen Intake/Output Intake/Output: Intake & Output 04/26/22 04/27/22 04/28/22 04/29/22 23:59 23:59 23:59 23:59 Intake Total 700 1460 1090 Output Total 700 650 400 Balance 0 810 690 Meds/Results Medications: Active Medications Generic Name Dose Route Start Last Admin Trade Name Freq PRN Reason Stop Dose Admin Acetaminophen 650 mg 04/29/22 05:41 04/29/22 06:0
[2022-04-29] MEDS: ATORVASTATIN 20 MG TABLET 60 MG PO (22:12)
[2022-04-29] MEDS: ASPIRIN 81 MG ENTERIC TABLET PO (22:13)
[2022-04-29 22:19] LABS: Glucose Point of Care 130 mg/dl (65-105)
[2022-04-30] VITALS (8 sets, daily range): BP systolic 140–143; BP diastolic 38–47; PULSE 52–61; RESP 16–20; TEMP 36.3–36.7; O2SAT 92–98; BMI 30.2
--- NOTE | 2022-04-30 06:11 | PM.PNNEP ---
Progress Note: A&P Assessment and Plan (1) Acute kidney injury superimposed on CKD: Code(s): N17.9 - Acute kidney failure, unspecified; N18.9 - Chronic kidney disease, unspecified Status: Acute Assessment and Plan: Leidy has chronic kidney disease. This is due to hypertension and diabetes. Her baseline GFR runs in the mid to high teens. She has acute kidney injury. her creatinine in February 2021 was 3.2, and january of 2022 was 3.16, then creatinine 3.6, on 04/21 at [facility] (seen on my phone in care everywhere) and then 6 on admission. Renal ultrasound shows no hydro. Urinalysis is bland. There is some protein. Urine electrolytes show pre renal status Diuretics have been on hold and the creatinine has come down. yesterday the creatinine was around 4. Today's is pending. Intake/output is 1460/650. At some point she is going to need diuretics again. At this point will follow the creatinine to see what her new baseline will be. Then re-initiate diuretics. If she develops signs of fluid overload 1st and we can restart diuretics then. (2) Volume overload: Code(s): E87.70 - Fluid overload, unspecified Status: Acute Assessment and Plan: She seems fairly well compensated right now. She is still not on oxygen. Continue to follow exam (3) Obstructive sleep apnea: Code(s): G47.33 - Obstructive sleep apnea (adult) (pediatric) Status: Acute Assessment and Plan: She uses a CPAP machine (4) Diabetes: Code(s): E11.9 - Type 2 diabetes mellitus without complications Status: Chronic Assessment and Plan: she is on insulin and sliding scale per hospitalists. (5) PUD (peptic ulcer disease): Code(s): K27.9 - Peptic ulcer, site unspecified, unspecified as acute or chronic, without hemorrhage or perforation Status: Acute Assessment and Plan: She is on pantoprazole (6) Heart disease: Code(s): I51.9 - Heart disease, unspecified Status: Acute Assessment and Plan: she has had myocardial infarction and also a bypass. She is not having any chest pain now. cardiology iso n the case. (7) HTN (hypertension): Code(s): I10 - Essential (primary) hypertension Status: Chronic Assessment and Plan: Her blood pressure is under good control. (8) Complex renal cyst: Code(s): N28.1 - Cyst of kidney, acquired Status: Acute Assessment and Plan: Will check MRI without contrast. Options are limited for following because of her CKD. Subjective Date/time seen: 04/30/22 06:11 Interval history: Leidy is feeling better. She slept pretty well last night. No shortness of breath. Minimal swelling about the same. Exam Narrative: WDWN in NAD skin no rash head ncat lungs clear bilateral cor reg no rub or gallop abd BS+ nontender and soft ext 1+ presacral edema. Objective Data Vital Signs Vital Signs: Vital Signs - 24 hr 04/29/22 08:00 04/29/22 13:40 04/29/22 12:00 Temperature 36.8 C Pulse Rate 59 L 56 L 57 L Respiratory Rate 12 Blood Pressure 137/44 L Pulse Oximetry 93 Oxygen Delivery 04/29/22 16:00 04/29/22 22:13 04/29/22 23:00 Temperature Pulse Rate 59 L 62 66 Respiratory Rate Blood Pressure Pulse Oximetry 92 Oxygen Delivery CPAP 04/29/22 22:00 04/29/22 22:00 04/29/22 20:03 Temperature 36.3 C L Pulse Rate 60 61 Respiratory Rate 16 Blood Pressure 133/60 Pulse Oximetry 93 Oxygen Delivery CPAP 04/30/22 00:01 04/30/22 04:03 04/30/22 04:10 Temperature Pulse Rate 57 L 52 L Respiratory Rate Blood Pressure Pulse Oximetry Oxygen Delivery CPAP Intake/Output Intake/Output: Intake & Output 04/27/22 04/28/22 04/29/22 04/30/22 23:59 23:59 23:59 23:59 Intake Total 700 1460 1330 Output Total 700 650 850 Balance 0 810 480 Meds/Results Medications: Active Medications Gene
[2022-04-30 08:26] LABS: Glucose Point of Care 133 mg/dl (65-105)
[2022-04-30 08:28] LABS: Hematocrit 26.5 % (37.0-47.0); Hemoglobin 8.3 g/dL (12.0-15.0); Mean Corpuscular HGB Conc 31.3 g/dl (32-36); Mean Corpuscular Volume 92.7 fl (80-100); Mean Platelet Volume 9.1 fl (7.4-10.4); Platelet Count Result 232 k/mm3 (150-375); Red Blood Count 2.86 M/mm3 (4.2-5.4); Red Cell Distribution Width 15.9 % (11.5-14.5); White Blood Count 9.6 K/mm3 (4.5-10.0)
[2022-04-30 08:44] LABS: Albumin Level 3.5 g/dL (3.5-5.1); Anion Gap 14 mmol/L (8-16); Blood Urea Nitrogen 89 mg/dL (7-17); Calcium 8.4 mg/dL (8.4-10.2); Carbon Dioxide 20 mmol/L (22-30); Chloride 105 mmol/L (98-107); Estimated Glomerular Filt Rate 11; Glucose 145 mg/dL (65-110); Phosphorus 5.6 mg/dL (2.5-4.5); Potassium 4.7 mmol/L (3.4-5.0); Sodium 139 mmol/L (137-145)
[2022-04-30] MEDS: carvediloL 12.5 MG TABLET PO ×2 (08:44→20:11)
[2022-04-30] MEDS: ISOSORBIDE MONONITRATE 30 MG TAB.ER.24H 90 MG PO (08:44)
[2022-04-30] MEDS: NIFEdipine 30 MG TAB.ER.24 90 MG PO (08:44)
[2022-04-30] MEDS: CLOPIDOGREL BISULFATE 75 MG TABLET PO (08:44)
[2022-04-30] MEDS: hydrALAZINE HCL 50 MG TABLET PO ×3 (08:44→16:26)
[2022-04-30] MEDS: MAGNESIUM OXIDE 400 MG TABLET PO ×2 (08:44→16:26)
[2022-04-30] MEDS: PANTOPRAZOLE 40 MG TABLET PO (08:44)
--- NOTE | 2022-04-30 08:46 | PM.IMPN ---
Progress Note: A&P Assessment and Plan (1) Acute kidney injury superimposed on CKD: Code(s): N17.9 - Acute kidney failure, unspecified; N18.9 - Chronic kidney disease, unspecified Status: Acute Assessment and Plan: Baseline Cr 3.2-3.6. CKF related to DM and HTN. She presents with weakness and found to have Cr 6.0. Urine lytes consistent with pre-renal. Diuretics stopped and Cr improved to 4.1 today. She is close to baseline. Dr. Esquivel has been consulted and appreciate his input. Okay to remove Graff. She remains off diuretics. (2) Chronic diastolic CHF (congestive heart failure): Code(s): I50.32 - Chronic diastolic (congestive) heart failure Status: Acute Assessment and Plan: Patient with chronic diastolic heart failure.?Echo 10/2021 showing EF 65-70%, Grade II diastolic dysfunction, hypokinetic WM and mild-moderate MR. She was treated for acute CHF at [facility] in [place] 1.5 weeks ago; had thoracentesis and diuresed. She appeared euvolemic on admission with minimal symptoms. BNP was >35K but CXR was fairly clear. Elevated BNP related to MASSIMO/CKD. Unable to give Empag given poor renal function. Overall felt she did not have acute CHF. Appreciate Cardiology input. Continue Coreg, hydralazine/Imdur. Resume diuretics when able. (3) CAD (coronary artery disease): Code(s): I25.10 - Atherosclerotic heart disease of [place] coronary artery without angina pectoris Status: Acute Assessment and Plan: History of CAD, CABG, and a NSTEMI 10/2021. Stable. No CP. Continue medical therapy with aspirin, Plavix, statin and Coreg. Okay to stop tele. (4) HTN (hypertension): Code(s): I10 - Essential (primary) hypertension Status: Chronic Assessment and Plan: Patient's blood pressure was reviewed on 04/30 Blood pressure remains well controlled. Will continue current medications. (5) Anemia: Code(s): D64.9 - Anemia, unspecified Status: Chronic Assessment and Plan: Hgb 8.2 on admission and stable. Anemia workup in August noted. Most likely related to the chronic renal disease. (6) Diabetes: Code(s): E11.9 - Type 2 diabetes mellitus without complications Status: Chronic Assessment and Plan: A1c 5.5. The patient's blood glucose was reviewed on 04/30 Glucose remains well controlled. Glimepiride remains on hold. Continue AccuCheks covering with sliding scale. Hypoglycemia protocol available as needed. Continue to monitor. (7) Obstructive sleep apnea: Code(s): G47.33 - Obstructive sleep apnea (adult) (pediatric) Status: Acute Assessment and Plan: Compliant with treatment. (8) Complex renal cyst: Code(s): N28.1 - Cyst of kidney, acquired Status: Acute Assessment and Plan: CT A/P showing exophytic lesions bilaterally. MRI ordered. Plan Some biliary ductal dilatation noted but no abdominal pain and LFTs are normal. Suspect related to post-Cholecystectomy. Subjective Date/time seen: 04/30/22 08:46 Interval history: 76yo female with hx of CKD, CAD, DEJUAN and DM here for weakness and found to have MASSIMO. Assuming care. Chart reviewed. She feels 'cold' today. No n/v. No CP or SOB. Wore her CPAP last night. No pedal edema. Cough that is occasionally productive of yellow/white sputum. Up walking to commode at times. Exam Narrative: AF 97.4 143/47 59 20 98% ra Gen - NARD lying flat in bed Chest - CTA bilaterally, nml RR CV - RRR S1/S2. Tele showing no alarms Abd - Soft, NT/ND, Positive BS - Graff secured draining clear yellow urine Ext - No pedal edema Psych - Nml mood and affect Skin - Warm and dry. Objective Data Vital Signs Vital Signs: Vital Signs - 24 hr 04/29/22 13:40 04/29/22 12:00 04/29/22 16:00 Temperature 98.2 F Pulse Rate 56 L 57 L 59 L Respiratory Rate 12 Blood Pressure 137/44 L Pulse Oximetry 93 Oxygen D
[2022-04-30 11:47] LABS: Glucose Point of Care 178 mg/dl (65-105)
--- NOTE | 2022-04-30 14:08 | PC.NURSE ---
On 04/30/22, the student, [Keara Cervantes], provided care and completed [facility] documentation on this patient. I have reviewed the student's documentation and agree with the findings.
--- NOTE | 2022-04-30 14:43 | PCNSR ---
On 04/30/22, the student, Blade Zazueta, provided care and completed [facility] documentation on this patient. I have reviewed the student's documentation and agree with the findings.
[2022-04-30] MEDS: guaiFENesin 12 HR 600 MG TABCR PO ×2 (16:26→20:10)
[2022-04-30 17:06] LABS: Glucose Point of Care 126 mg/dl (65-105)
[2022-04-30] MEDS: ATORVASTATIN 20 MG TABLET 60 MG PO (20:10)
[2022-04-30] MEDS: ASPIRIN 81 MG ENTERIC TABLET PO (20:10)
[2022-04-30 20:15] LABS: Glucose Point of Care 117 mg/dl (65-105)
[2022-05-01 05:29] LABS: Albumin Level 3.1 g/dL (3.5-5.1); Anion Gap 9 mmol/L (8-16); Blood Urea Nitrogen 85 mg/dL (7-17); Calcium 8.1 mg/dL (8.4-10.2); Carbon Dioxide 20 mmol/L (22-30); Chloride 108 mmol/L (98-107); Estimated Glomerular Filt Rate 11; Glucose 100 mg/dL (65-110); Phosphorus 5.4 mg/dL (2.5-4.5); Potassium 4.9 mmol/L (3.4-5.0); Sodium 137 mmol/L (137-145)
[2022-05-01 06:31] VITALS: BP 147/45; PULSE 60; RESP 16; TEMP 36.8; O2SAT 95
--- NOTE | 2022-05-01 07:28 | PM.PNNEP ---
Progress Note: A&P Assessment and Plan (1) Acute kidney injury superimposed on CKD: Code(s): N17.9 - Acute kidney failure, unspecified; N18.9 - Chronic kidney disease, unspecified Status: Acute Assessment and Plan: Leidy has chronic kidney disease. This is due to hypertension and diabetes. Her baseline GFR runs in the mid to high teens. She has acute kidney injury. her creatinine in February 2021 was 3.2, and january of 2022 was 3.16, then creatinine 3.6, on 04/21 at [facility] (seen on my phone in care everywhere) and then 6 on admission. Renal ultrasound shows no hydro. Urinalysis is bland. There is some protein. Urine electrolytes show pre renal status Diuretics have been on hold and the creatinine has come down. yesterday the creatinine was around 4. Today's is about the same. Intake/output is 930/300 At some point she is going to need diuretics again. discussed at length with Dr. Londono and also with the patient. I think we at hold diuretics and she can restart at half the dose on Thursday. That would be 20mg per day of Lasix. She should weigh every Thursday and write it down bring it to our appointment. She should make an appointment to see me within a couple of weeks or so (2) Volume overload: Code(s): E87.70 - Fluid overload, unspecified Status: Acute Assessment and Plan: She seems fairly well compensated right now. She is still not on oxygen. very little swelling (3) Obstructive sleep apnea: Code(s): G47.33 - Obstructive sleep apnea (adult) (pediatric) Status: Acute Assessment and Plan: She uses a CPAP machine (4) Diabetes: Code(s): E11.9 - Type 2 diabetes mellitus without complications Status: Chronic Assessment and Plan: she is on insulin and sliding scale per hospitalists. (5) PUD (peptic ulcer disease): Code(s): K27.9 - Peptic ulcer, site unspecified, unspecified as acute or chronic, without hemorrhage or perforation Status: Acute Assessment and Plan: She is on pantoprazole (6) Heart disease: Code(s): I51.9 - Heart disease, unspecified Status: Acute Assessment and Plan: she has had myocardial infarction and also a bypass. She is not having any chest pain now. cardiology iso n the case. (7) HTN (hypertension): Code(s): I10 - Essential (primary) hypertension Status: Chronic Assessment and Plan: Her blood pressure is under good control. (8) Complex renal cyst: Code(s): N28.1 - Cyst of kidney, acquired Status: Acute Assessment and Plan: Will check MRI without contrast. Options are limited for following because of her CKD. Subjective Date/time seen: 05/01/22 07:28 Interval history: Leidy is feeling better. Slept well last night with the CPAP machine. Swelling is better. Exam Narrative: WDWN in NAD skin no rash head ncat lungs clear bilateral cor reg no rub or gallop abd BS+ nontender and soft ext Trace presacral edema. Objective Data Vital Signs Vital Signs: Vital Signs - 24 hr 04/30/22 08:44 04/30/22 14:23 04/30/22 19:51 Temperature 36.7 C 36.7 C Pulse Rate 59 L 58 L 61 Respiratory Rate 16 16 Blood Pressure 140/42 L 140/38 L Pulse Oximetry 92 95 Oxygen Delivery 04/30/22 20:11 04/30/22 20:00 04/30/22 22:45 Temperature Pulse Rate 61 61 Respiratory Rate Blood Pressure Pulse Oximetry 95 Oxygen Delivery Room Air CPAP 05/01/22 06:31 Temperature 36.8 C Pulse Rate 60 Respiratory Rate 16 Blood Pressure 147/45 H Pulse Oximetry 95 Oxygen Delivery Intake/Output Intake/Output: Intake & Output 04/28/22 04/29/22 04/30/22 05/01/22 23:59 23:59 23:59 23:59 Intake Total 1460 1330 930 400 Output Total 650 850 300 Balance 810 480 630 400 Meds/Results Medications: Active Medications Generic Name Dose Route Start Last Admin Trade Name Freq PRN Reason Stop
[2022-05-01 08:00] VITALS: O2SAT 95
[2022-05-01 08:35] VITALS: PULSE 70
[2022-05-01] MEDS: carvediloL 12.5 MG TABLET PO (08:35)
[2022-05-01] MEDS: hydrALAZINE HCL 50 MG TABLET PO ×2 (08:35→12:28)
[2022-05-01] MEDS: NIFEdipine 30 MG TAB.ER.24 90 MG PO (08:36)
[2022-05-01] MEDS: MAGNESIUM OXIDE 400 MG TABLET PO (08:36)
[2022-05-01] MEDS: CLOPIDOGREL BISULFATE 75 MG TABLET PO (08:36)
[2022-05-01] MEDS: guaiFENesin 12 HR 600 MG TABCR PO (08:36)
[2022-05-01] MEDS: ISOSORBIDE MONONITRATE 30 MG TAB.ER.24H 90 MG PO (08:36)
[2022-05-01] MEDS: PANTOPRAZOLE 40 MG TABLET PO (08:37)
[2022-05-01 09:00] LABS: Glucose Point of Care 135 mg/dl (65-105)
[2022-05-01 12:21] LABS: Glucose Point of Care 145 mg/dl (65-105)
--- NOTE | 2022-05-01 13:11 | PM.DS ---
DS: Admitting Diagnosis Discharge Date 05/01/22 Admitting Diagnosis Weakness DS: Discharge Diagnosis Discharge Diagnosis (1) Acute kidney injury superimposed on CKD: Code(s): N17.9 - Acute kidney failure, unspecified; N18.9 - Chronic kidney disease, unspecified Status: Acute (2) Chronic diastolic CHF (congestive heart failure): Code(s): I50.32 - Chronic diastolic (congestive) heart failure Status: Acute (3) CAD (coronary artery disease): Code(s): I25.10 - Atherosclerotic heart disease of [place] coronary artery without angina pectoris Status: Acute (4) HTN (hypertension): Code(s): I10 - Essential (primary) hypertension Status: Chronic (5) Anemia: Code(s): D64.9 - Anemia, unspecified Status: Chronic (6) Diabetes: Code(s): E11.9 - Type 2 diabetes mellitus without complications Status: Chronic (7) Obstructive sleep apnea: Code(s): G47.33 - Obstructive sleep apnea (adult) (pediatric) Status: Acute (8) Complex renal cyst: Code(s): N28.1 - Cyst of kidney, acquired Status: Acute DS: Summary Hospital Course Reason for hospitalization: 76yo female with hx of CKD, CAD, DEJUAN and DM here for weakness and found to have MASSIMO. Please see H&P for details. Hospital Course: Baseline Cr 3.2-3.6. CKD related to DM and HTN. She presents with weakness and found to have Cr 6.0.? Urine lytes consistent with pre-renal. Diuretics stopped and Cr improved to 4.1 today. She is close to baseline. Dr. Esquivel was consulted and appreciate his input. Patient with chronic diastolic heart failure.?Echo 10/2021 showing EF 65-70%, Grade II diastolic dysfunction, hypokinetic WM and mild-moderate MR. She was treated for acute CHF at [facility] in [place] 1.5 weeks ago; had thoracentesis and diuresed. She appeared euvolemic on admission with minimal symptoms. BNP was >35K but CXR was fairly clear. Elevated BNP related to MASSIMO/CKD. Unable to give Empag given poor renal function. Overall felt she did not have acute CHF.?Cardiology was consulted. We continued Coreg, hydralazine/Imdur. CXR at time discharge showing CMG with mild interstitial edema. Discussed with Nephrology and will resume her Lasix 20mg daily today. A1c 5.5 so we stopped her Amaryl. She overall did well and was able to be discharged home on 05/01/22 Status at Discharge Cognitive/behavioral status at discharge: stable Time Spent with Patient Time attestation: Total time spent providing and/or coordinating discharge services: 35 minutes Time spent: Greater than 30 minutes Exam Narrative: AF 98.2 147/45 70 16 95% ra Gen - NARD Chest - few basilar crackles,nml RR CV - RRR S1/S2 Abd - Soft, NT/ND, Positive BS Ext - trace pedal edema Psych - Nml mood and affect Skin - Warm and dry. DS: Data Data Completed and Pending Labs on day of discharge: Labs from last 24 hours 05/01/22 05/01/22 05/01/22 12:17 08:53 04:56 Sodium 137 Potassium 4.9 Chloride 108 H Carbon Dioxide 20 L Anion Gap 9 BUN 85 H Creatinine 4.10 H Estim Creat Clear Calc Not Reportable Estimated GFR 11 L Glucose 100 POC Capillary Glucose 145 H 135 H Calcium 8.1 L Phosphorus 5.4 H Albumin 3.1 L 04/30/22 04/30/22 20:08 17:01 Sodium Potassium Chloride Carbon Dioxide Anion Gap BUN Creatinine Estim Creat Clear Calc Estimated GFR Glucose POC Capillary Glucose 117 H 126 H Calcium Phosphorus Albumin Discharge Plan Discharge Attending physician on discharge: Aakash Londono Consulting providers: Yasmany Esquivel ; Pily Diaz Discharging Clinician: Aakash Londono Anticipated Discharge Date/Time: 05/01/22 13:22 Patient Disposition: Home, Self-Care Activity: as tolerated Diet: heart healthy and renal Discharge Instructions: Please check glucose 1 to 2 times a day. Record an
--- NOTE | 2022-05-01 14:17 | PC.NURSE ---
On 05/01/22, the student, [Halle Munguia], provided care and completed [facility] documentation on this patient. I have reviewed the student's documentation and agree with the findings.
== END 2022-05-01 14:41 | disposition home or self-care (01) | DRG 683 ==
LOC: ANHED 19:04 → ANH2MED 19:36
PROVIDERS: Internal Medicine Nephrology; Nurse Practitioner; Admitting Provider Chiropractor; Emergency Provider Emergency Medicine; Visit Provider Internal Medicine
DX: N17.9 Acute kidney failure, unspecified (principal); I13.0 Hypertensive heart and chronic kidney disease with heart failure and stage 1 through stage 4 chronic kidney disease, or unspecified chronic kidney disease; I50.32 Chronic diastolic (congestive) heart failure; E11.22 Type 2 diabetes mellitus with diabetic chronic kidney disease; N18.9 Chronic kidney disease, unspecified; D63.1 Anemia in chronic kidney disease; G47.33 Obstructive sleep apnea (adult) (pediatric); N28.1 Cyst of kidney, acquired; K27.9 Peptic ulcer, site unspecified, unspecified as acute or chronic, without hemorrhage or perforation; I25.10 Atherosclerotic heart disease of native coronary artery without angina pectoris; Z95.1 Presence of aortocoronary bypass graft; Z90.49 Acquired absence of other specified parts of digestive tract; E66.9 Obesity, unspecified; Z68.30 Body mass index [BMI] 30.0-30.9, adult; I25.2 Old myocardial infarction; Z95.5 Presence of coronary angioplasty implant and graft; Z90.710 Acquired absence of both cervix and uterus
CPT/HCPCS: 36415; 51702; 71046; 74176; 74181; 74183; 76775; 80048; 80053; 80069; 81001; 82550; 82570; 82728; 82948; 83036; 83605; 83690; 83735; 83880; 84100; 84300; 84484; 85025; 85027; 93005; 99285; A9270; A9577; J1940; J7030

== ENCOUNTER 2022-05-16 19:36 | Inpatient (IN) | payer MEDICARE, SELFPAY ==
--- NOTE | ~2022-05-16 | XR_ITS ---
XR fl guide central line place DATE: 05/23/2022 16:14 INDICATION: Dialysis catheter placement TECHNIQUE: 62.0 seconds fluoroscopy time 12.05 mGy 3. Spot C-arm images of the chest COMPARISON: None FINDINGS: A right internal jugular dual lumen dialysis catheter is placed, with tip overlying the rig ht atrium. Sternotomy wire sutures. IMPRESSION: Right internal jugular dialysis catheter placement Reviewed, dictated and finalized at Location A. Reviewed, dictated and finalized at location B. CTOR OF OUTPATIENT SERVICES
--- NOTE | ~2022-05-16 | XR_ITS ---
XR chest port-a-cath/central 05/23/2022 16:24 Indication: Dialysis catheter replacement. Procedure: AP portable chest Comparison: Comparison to multiple prior studies sequentially, with oldest reviewed study dated 05/06. Findings: Right IJ portacatheter tip seen in the SVC. No pneumothorax. Cardiomegaly. Status post medi an sternotomy for CABG. Asymmetric right-sided airspace disease may represent asymmetric edema or les s likely pneumonia. No significant pleural effusion. Impression: 1: Asymmetric right-sided airspace disease which may represent edema or less likely pneumonia. 2: Cardiomegaly. Reviewed, dictated and finalized at location A. RION ADMINISTRATOR Impression: 1: Asymmetric right-sided airspace disease which may represent edema or less li eduardo pneumonia. 2: Cardiomegaly.
--- NOTE | ~2022-05-16 | XR_ITS ---
EXAMINATION: XR chest port-a-cath/central INDICATION: Dialysis catheter insertion TECHNIQUE: Portable AP chest at 1353 hours COMPARISON: 05/17/2022 FINDINGS: A right internal jugular dialysis catheter has been inserted which ends with its tip in the proximal right atrium. The dialysis catheter is kinked at the skin site. Cardiomegaly is noted. Ther e is a small persistent left pleural effusion. Minimal left basilar airspace opacity persists. Right pleural effusion has resolved. There is a mild diffuse interstitial pattern. No pneumothorax is ident ified. Median sternotomy wires and mediastinal surgical clips are seen, likely from prior coronary ar fidelia bypass grafting. IMPRESSION: 1. Right internal jugular dialysis catheter ending with its tip in the proximal right atrium. 2. Cardiomegaly with improving pulmonary edema. 3. Small left pleural effusion with adjacent airspace opacity, consistent with atelectasis versus pne umonia. Reviewed, dictated and finalized at location F. OGY DEPARTMENT CHAIR IMPRESSION: 1. Right internal jugular dialysis catheter ending with its tip in the proximal right atrium. 2. Cardiomegaly with improving pulmonary edema. 3. Small left pleural effusion with adjacent airspace opacity, consistent with atelectasis versus pneumonia.
--- NOTE | ~2022-05-16 | XR_ITS ---
EXAMINATION: XR fl guide central line place DATE: 05/19/2022 13:29 INDICATION: Shortness of breath and congestive heart failure. Requirement for dialysis catheter place ment. TECHNIQUE: 1 fluoroscopic image of the central chest was obtained during procedure performed by Dr. Naif yung. Radiologist was not present for the imaging or procedure. The amount of fluoroscopy time used during this procedure was 0.8 minutes. COMPARISON: 05/17/2022 FINDINGS: Markers for the lap sponges projected over the right axilla. Interval placement of a large-bore dual- lumen right internal jugular central venous likely tunneled dialysis catheter which extends to at jay st the caudal inferior vena cava and beyond the inferior margin of the [id number]. Median sternoto my wires likely related to prior coronary artery bypass grafting. There is diffuse hazy increased opa [place] in the visualized right upper hemithorax relative to the visualized left apex which suggests pre sence of a posterior layering pleural effusion. No evident pneumothorax. IMPRESSION: 1. Fluoroscopy utilized during right internal jugular central venous catheter placement. See procedur e note for further detail. 2. Increasing hazy opacities at the visualized right upper lung zone most likely representing increas ing posterior layering right pleural effusion. Correlate with planned post procedure chest radiograph . Reviewed, dictated and finalized at location B. IFIED ACTIVITIES DIRECTOR IMPRESSION: 1. Fluoroscopy utilized during right internal jugular central venous catheter p lacement. See procedure note for further detail. 2. Increasing hazy opacities at the visualized right upper lung zone most likel y representing increasing posterior layering right pleural effusion. Correlate with planned post procedure chest radiograph.
--- NOTE | ~2022-05-16 | XR_ITS ---
EXAMINATION: XR chest 1V portable INDICATION: Shortness of breath TECHNIQUE: Portable AP chest at 1204 hours COMPARISON: 05/01/2022 FINDINGS: Cardiomegaly is noted. There is a mild diffuse interstitial pattern. There are small pleura l effusions, right greater than left. No pneumothorax is identified. There are minimal airspace opaci ties of the lung bases. A suture anchor is noted in the right humeral head. IMPRESSION: 1. Cardiomegaly with mild pulmonary edema. 2. Small pleural effusions with associated bibasilar airspace opacities, atelectasis versus pneumonia . Reviewed, dictated and finalized at location A. OLOGY MANAGER IMPRESSION: 1. Cardiomegaly with mild pulmonary edema. 2. Small pleural effusions with associated bibasilar airspace opacities, atelec tasis versus pneumonia.
--- NOTE | ~2022-05-16 | XR_ITS ---
EXAMINATION: XR chest 1V portable INDICATION: Catheter placement TECHNIQUE: Portable AP chest at 1455 hours COMPARISON: 05/21/2022 FINDINGS: A large bore right internal jugular dialysis catheter ends with its tip in the proximal rig ht atrium. The catheter is kinked at the skin. Cardiomegaly is noted. There are minimal bibasilar air space opacities without significant change. No pleural effusion or pneumothorax. Median sternotomy wi res and mediastinal surgical clips are seen, likely from prior coronary artery bypass grafting. There are changes of distal right clavicle resection. IMPRESSION: 1. Right internal jugular dialysis catheter ending with its tip in the proximal right atrium. 2. Cardiomegaly. 3. Stable bibasilar airspace opacities, consistent with atelectasis versus pneumonia. Reviewed, dictated and finalized at location F. ORATION DRILLER IMPRESSION: 1. Right internal jugular dialysis catheter ending with its tip in the proximal right atrium. 2. Cardiomegaly. 3. Stable bibasilar airspace opacities, consistent with atelectasis versus pneu monia.
--- NOTE | ~2022-05-16 | XR_ITS ---
EXAMINATION: XR chest 1V portable DATE: 05/21/2022 08:15 INDICATION: Central line manipulation. TECHNIQUE: A single frontal view of the chest was obtained. COMPARISON: Chest single view 05/19/2022 FINDINGS: There are airspace opacities in the lower lung zones. No pleural effusion or pneumothorax. Cardiomegaly is noted. Median sternotomy wires and mediastinal surgical clips are seen, likely from p rior coronary artery bypass grafting. A right internal jugular central venous catheter is seen with t ip in the right atrium. There is a suture anchor in right humeral head. There are changes of distal r ight clavicle resection. IMPRESSION: 1. Airspace opacities in the lower lung zones with improvement on the left, consistent with atelectas is/scarring versus pneumonia. 2. Cardiomegaly. Reviewed, dictated and finalized at location A. STICS RESEARCH ENGINEER IMPRESSION: 1. Airspace opacities in the lower lung zones with improvement on the left, con sistent with atelectasis/scarring versus pneumonia. 2. Cardiomegaly.
[2022-05-16 19:55] VITALS: BP 139/43; PULSE 53; RESP 16; TEMP 37.1; O2SAT 95
--- NOTE | 2022-05-16 20:26 | ECG_ITS ---
Measurements Intervals Bailey Rate: 53 P: -13 MS: 212 QRS: -9 QRSD: 99 T: 31 QT: 483 QTc: 455 Interpretive Statements SINUS BRADYCARDIA WITH FIRST DEGREE AV BLOCK CONSIDER INFERIOR INFARCT, AGE INDETERMINATE CONSIDER ANTERIOR INFARCT, AGE INDETERMINATE ABNORMAL ECG COMPARED TO ECG 04/26/2022 17:43:48 SINUS BRADYCARDIA NOW PRESENT FIRST DEGREE AV BLOCK NOW PRESENT Electronically Signed On 05-17-2022 6:46:05 SPECIAL EDUCATOR by Konstantin Nascimento D.O.
[2022-05-16 23:27] VITALS: PULSE 55; RESP 14; O2SAT 94
[2022-05-16 23:30] VITALS: PULSE 58; RESP 14; O2SAT 93
[2022-05-16 23:31] VITALS: BP 138/41; PULSE 54; RESP 16; O2SAT 93
--- NOTE | 2022-05-16 23:33 | ED.GENADULT ---
HPI - General Adult General Chief complaint: Weakness Stated complaint: Fluid on lungs, no energy Time Seen by Provider: 05/16/22 23:07 History of Present Illness HPI narrative: 76-year-old female history of hypertension, congestive heart failure, chronic kidney disease, coronary disease with history of CABG, type 2 diabetes presenting to the emergency department for evaluation of generalized weakness. Patient has had multiple hospitalizations over the last few weeks. Patient was just admitted to [place] and discharged on 05/01 for MASSIMO on CKD. Patient had outpatient follow-up today with her primary care physician and they received a call this evening from the office that they needed to present to the emergency department due to lab abnormalities concerning for congestive heart failure. is unsure of what the lab values were. Patient states that she has felt increasingly fatigued over the last few days and has had decreased p.o. intake. Patient follows up with Dr. Julien for cardiology and Dr. Esquivel for nephrology. Related Data Home Medications Medication Instructions Recorded Confirmed allopurinol 300 mg tablet 100 mg PO DAILY 08/31/21 04/26/22 atorvastatin 40 mg tablet 60 mg PO HS 08/31/21 04/26/22 carvedilol 25 mg tablet 12.5 mg PO BID 08/31/21 04/26/22 hydralazine 100 mg tablet 50 mg PO TID 08/31/21 04/26/22 pantoprazole 40 mg granules 40 mg PO DAILY 12/18/21 04/26/22 delayed-release for susp in packet clopidogrel 75 mg tablet 75 mg PO DAILY 01/03/22 04/26/22 aspirin 81 mg capsule 81 mg PO HS 04/26/22 04/26/22 isosorbide mononitrate 30 mg 30 mg PO DAILY 04/26/22 04/26/22 tablet,extended release 24 hr magnesium oxide 400 mg BYMOUTH BID 04/26/22 04/26/22 nifedipine 90 mg tablet,extended 90 mg PO DAILY 04/26/22 04/26/22 release nitroglycerin 0.4 mg sublingual 0.4 mg sublingual Q5MIN PRN Chest 04/26/22 04/26/22 tablet Pain gabapentin 100 mg capsule 100 mg PO TID 04/28/22 04/28/22 Allergies Allergy/AdvReac Type Severity Reaction Status Date / Time metronidazole Allergy Severe Diarrhea Verified 04/27/22 00:17 carbamazepine Allergy Mild Itching Verified 04/27/22 00:17 hydrocodone Allergy Mild ITCHING Verified 04/27/22 00:17 Sulfa (Sulfonamide Allergy Mild ITCHING Verified 04/27/22 00:17 Antibiotics) terbinafine Allergy Mild MESSED UP Verified 04/27/22 00:17 BS AND BP triamterene Allergy Mild ITCH Verified 04/27/22 00:17 ciprofloxacin Allergy Unknown Unknown Verified 04/27/22 00:17 labetalol Allergy Unknown INCREASES Verified 04/27/22 00:17 BP Penicillins Allergy Unknown ITCHING Verified 04/27/22 00:17 tramadol Allergy Unknown HIVES Verified 04/27/22 00:17 Review of Systems Review of Systems: CONSTITUTIONAL: Increased generalized weakness, decreased p.o. intake EYES: Denies visual changes, redness, or discharge. ENT: Denies rhinorrhea, congestion, sore throat, or otalgia. CARDIOVASCULAR: Denies chest pain, palpitations, or edema. RESPIRATORY: Denies cough or dyspnea. GASTROINTESTINAL: Denies abdominal pain, nausea, vomiting, or diarrhea. GENITOURINARY: Denies dysuria or hematuria. SKIN: Denies rash or itching. MUSCULOSKELETAL: Denies back pain, joint pain, or myalgia. NEUROLOGIC: Denies headache, numbness, or weakness. [facility] Past Medical History Medical History (Updated 05/17/22 @ 00:42 by Ezio Reynolds MD) MASSIMO (acute kidney injury) Complex renal cyst Congestive heart failure Coronary artery disease involving coronary bypass graft of [place] heart Diabetes Essential hypertension Heart attack 2011 History of adenomatous polyp of colon Obesity Obstructive sleep apnea Pneumonia PUD (peptic ulcer disease) Volume overload Surgical History Surgical History H/O heart artery stent 2 H/O right heart catheterization 2 H/O shoulder surgery on the right H/O total hysterectomy History of appendectomy History of bladder [place]
[2022-05-16 23:39] LABS: Basophils Absolute Auto 0.1 K/mm3 (0.0-0.1); Basophils Percent Auto 0.9 % (0.2-1.2); Eosinophils Absolute Auto 0.8 K/mm3 (0-0.3); Eosinophils Percent Auto 9.6 % (0-4.4); Hematocrit 26.9 % (37.0-47.0); Hemoglobin 8.2 g/dL (12.0-15.0); Immature Granulocyte Absolute 0.04 K/mm3 (0.00-0.031); Immature Granulocyte Percent A 0.5 % (0-0.5); Lymphocytes Absolute Auto 1.41 K/mm3 (0.9-3.2); Lymphocytes Percent Auto 16.3 % (18.3-44.2); Mean Corpuscular HGB Conc 30.5 g/dl (32-36); Mean Corpuscular Hemoglobin 28.6 pg (26-34); Mean Corpuscular Volume 93.7 fl (80-100); Mean Platelet Volume 9.3 fl (7.4-10.4); Monocytes Absolute Auto 0.8 K/mm3 (0.1-0.6); Monocytes Percent Auto 9.3 % (2.6-8.5); Neutrophils Absolute Auto 5.5 K/mm3 (1.3-6.7); Neutrophils Percent Auto 63.4 % (45.5-73.1); Platelet Count Result 173 k/mm3 (150-375); Red Blood Count 2.87 M/mm3 (4.2-5.4); Red Cell Distribution Width 16.5 % (11.5-14.5); White Blood Count 8.6 K/mm3 (4.5-10.0)
[2022-05-16 23:47] VITALS: PULSE 53; RESP 18
[2022-05-16 23:55] LABS: Alanine Aminotransferase 15 U/L (6-35); Albumin Level 4.1 g/dL (3.5-5.1); Alkaline Phosphatase 152 U/L (38-126); Anion Gap 12 mmol/L (8-16); Aspartate Amino Transferase 29 U/L (14-36); Bilirubin,Total 0.5 mg/dL (0.2-1.3); Blood Urea Nitrogen 72 mg/dL (7-17); Carbon Dioxide 21 mmol/L (22-30); Chloride 106 mmol/L (98-107); Estimated Glomerular Filt Rate 7; Glucose 104 mg/dL (65-110); Potassium 5.5 mmol/L (3.4-5.0); Sodium 139 mmol/L (137-145)
[2022-05-17] VITALS (26 sets, daily range): BP systolic 131–148; BP diastolic 38–55; PULSE 52–62; RESP 13–22; TEMP 36.5–36.7; O2SAT 91–95; BMI 27.3
[2022-05-17 00:04] LABS: NT Pro B Type Natriuretic Pept > 35000 pg/mL (5-100)
[2022-05-17 00:17] LABS: Influenza A QL RT-PCR Negative (Negative); Influenza B QL RT-PCR Negative (Negative); SARS-CoV-2 RNA PCR Negative
[2022-05-17] MEDS: SODIUM BICARBONATE 8.4% 50 MEQ/50 ML SYRINGE IV PUSH (00:20)
[2022-05-17] MEDS: INSULIN HUMAN REGULAR (*BKC) 100 UNITS/ML IV PUSH (00:20)
[2022-05-17] MEDS: DEXTROSE 50% 25 GM/50 ML SYRINGE IV PUSH (00:20)
[2022-05-17] MEDS: SODIUM ZIRCONIUM CYCLOSILICATE 10 GM POWD.PACK PO (00:33)
[2022-05-17] MEDS: FUROSEMIDE INJ 40 MG/4 ML VIAL IV PUSH (01:15)
[2022-05-17 08:31] LABS: Glucose Point of Care 107 mg/dl (65-105)
[2022-05-17 10:19] LABS: Appearance Urine Clear (Clear); Bilirubin Urine Negative (Negative); Blood Urine Negative (Negative); Color Urine Yellow (Yellow); Glucose Urine UA Negative (Negative); Ketones Urine Negative (Negative); Leukocyte Esterase Ur Negative LEU/UL (Negative); Nitrate Urine Negative (Negative); Protein Urine 2+ mg/dL (Negative); Specific Grav Ur 1.015 (1.001-1.035); Urobilinogen Urine 0.2 mg/dL (<2.0)
--- NOTE | 2022-05-17 10:23 | PM.IMHP ---
H&P: HPI History of Present Illness Date/Time: 05/17/22 10:23 Chief Complaint: Generalized weakness Narrative: 76-year-old female with past medical history significant for hypertension, heart failure, kidney disease, coronary artery disease with history of CABG, diabetes is presenting with generalized weakness. She has had multiple hospitalizations over the last few weeks and was recently discharged after treatment for acute kidney injury. She was being seen in the office by her PCP when she was told to come to the ER due to significant lab abnormalities noted. They were not told what these labs were. Patient does admit to feeling generally weak since being discharged. No chest pain or shortness of breath. No nausea, vomiting or diarrhea. No fevers or chills. In the ER, her creatinine was noted to be 6 when it was 4 at discharge. Potassium was also elevated at 5.5 and this was treated. She was also given a dose of Lasix. Hemoglobin was 8.3 at discharge it was 8.2 in the ER. Baseline appears to be anywhere from 7-9. Chest x-ray showed cardiomegaly, pulmonary edema, pleural effusions and atelectasis. Review of Systems Review of Systems: 12 point review of systems was assessed and was negative except as noted in the HPI [facility] Past Medical History Medical History MASSIMO (acute kidney injury) Complex renal cyst Congestive heart failure Coronary artery disease involving coronary bypass graft of [place] heart Diabetes Essential hypertension Heart attack 2011 History of adenomatous polyp of colon Obesity Obstructive sleep apnea Pneumonia PUD (peptic ulcer disease) Volume overload Surgical History Surgical History H/O heart artery stent 2 H/O right heart catheterization 2 H/O shoulder surgery on the right H/O total hysterectomy History of appendectomy History of bladder surgery History of cholecystectomy History of rectal polypectomy History of tonsillectomy Hx of CABG 2011 with [place] to the Left anterior descending, SVG to the diagonal, SVG to the ramus and SVG to the PDA) Hx of cataract extraction Family History Family History Mother Diabetes mellitus Hypertension Acute myocardial infarction Father Cancer of bone Sibling Social History Social History Social History: the patient lives with her who is the durable power consumer attorney for healthcare. 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 She is a lifelong nonsmoker. She does not use any alcohol marijuana or illicit drugs. Code status full code Smoking status: Never smoker Second hand tobacco smoke exposure: No Alcohol intake: never Substance use: never Substance use type: does not use Lack of Transportation: No Lack of Food: Never True Current Housing: I Have Housing Concerned About Future Housing: Decline to Answer Difficulty Paying Gas/Electric Bills: Decline to Answer Difficulty Paying for Meds: Decline to Answer Currently Unemployed: Decline to Answer Education: Decline to Answer Difficulty w/ Childcare or Family Care: Decline to Answer Spiritual care concerns: No Meds Home Medications and Allergies Home Medications Medication Instructions Recorded Confirmed Type allopurinol 300 mg tablet 100 mg PO DAILY 08/31/21 05/17/22 History atorvastatin 40 mg tablet 40 mg PO HS 08/31/21 05/17/22 History carvedilol 25 mg tablet 12.5 mg PO BID 08/31/21 05/17/22 History hydralazine 100 mg tablet 50 mg PO TID 08/31/21 05/17/22 History clopidogrel 75 mg tablet 75 mg PO DAILY 01/03/22 05/17/22 History aspirin 81 mg capsule 81 mg PO HS 04/26/22 05/17/22 History isosorbide mononitrate 30 mg 60 mg PO DAILY 04/26/22 05/17/22 History tablet,extended release 24 hr lala
[2022-05-17 10:43] LABS: Bacteria Urine 3+ /hpf; RBC Urine 0-2 /hpf (0-2); Squamous Epithelial Cell Urine Occasional /hpf (Few)
[2022-05-17 11:00] LABS: Add Urine Microscopic? YES
[2022-05-17] MEDS: amLODIPine BESYLATE 5 MG TABLET 10 MG PO (11:16)
[2022-05-17 11:17] LABS: Glucose Point of Care 148 mg/dl (65-105)
[2022-05-17] MEDS: CLOPIDOGREL BISULFATE 75 MG TABLET PO (11:17)
[2022-05-17] MEDS: hydrALAZINE HCL 50 MG TABLET PO ×2 (11:17→16:50)
[2022-05-17] MEDS: ISOSORBIDE MONONITRATE 60 MG TAB.ER.24H PO (11:17)
[2022-05-17] MEDS: carvediloL 12.5 MG TABLET PO ×2 (11:17→20:29)
[2022-05-17] MEDS: PANTOPRAZOLE 40 MG TABLET PO (11:17)
[2022-05-17] MEDS: allopurinoL 100 MG TABLET PO (11:17)
--- NOTE | 2022-05-17 12:49 | PM.CNNEP ---
Assessment and Plan Assessment and plan (1) Chronic kidney disease (CKD), stage V: Code(s): N18.5 - Chronic kidney disease, stage 5 Status: Chronic Assessment and Plan: due to progression of her known disease from diabetes/hypertension suspect she has reached a point where dialysis is needed I worry some of her symptoms (fatigue/weakness...etc) is related to uremia furthermore, her recurrent hospitalizations are at least partly related to her renal dysfunction she is interested in doing peritoneal dialysis but I do not think she can wait for this she is agreeable to start hemodialysis will consult surgery for placement of PermCath and initiate hemodialysis (2) Volume overload: Code(s): E87.70 - Fluid overload, unspecified Status: Acute Assessment and Plan: as evidence of CXR and exam will start IV bumex for now plan further fluid removal/ultrafiltration once dialysis is initiated (3) Essential hypertension: Code(s): I10 - Essential (primary) hypertension Status: Chronic Assessment and Plan: reasonable control at this time follow trend of hemodynamics (4) Chronic diastolic CHF (congestive heart failure): Code(s): I50.32 - Chronic diastolic (congestive) heart failure Status: Acute Assessment and Plan: seem compensated current volume status more related to kidney dysfunction IV diuretics further fluid removal with dialysis when initiated (5) Diabetes: Code(s): E11.9 - Type 2 diabetes mellitus without complications Status: Chronic Assessment and Plan: follow glucose readings (although last A1c at goal if not better) Long and extensive discussion (> 20 minutes) with patient and at bedside regarding her deteriorating kidney function. We could continue conservative therapy (as was done on last hospitalization) when her kidney function deteriorated once again within 2 weeks of discharge. Her renal function may improve again during this hospitalization but I suspect in another 2 weeks, we will be in the same situation we are in not. I discussed starting hemodialysis now with eventual outpatient transition to peritoneal dialysis which they seem agreeable to. I discussed the risks, benefits, pros, cons, as well as the need for a tunneled HD catheter placement which they are agreeable to. Will continue to follow. History of Present Illness Reason for Consult Consult date: 05/17/22 Reason for consult: acute renal failure (on chronic kidney disease versus progression of CKD) Chief Complaint Chief complaint: MASSIMO on CKD, hyperkalemia History of Present Illness Narrative: The patient is a 76-year-old female with a past medical history as outlined below who presented to [facility] Emergency room with generalized weakness. The patient has had multiple hospitalizations over the last few weeks and was just recently hospitalized here at [facility] approximately two weeks ago with acute kidney injury on top of her baseline kidney disease. During that hospitalization, her diuretic therapy was held and her creatinine came down from 6.0 down to 4.0 and her diuretics were then restarted but at a lower dose. The hope was that this would maintain her renal function with the assumption that if it did not, the next step would be renal replacement therapy/dialysis. Since her discharge from the hospital, she has noticed more progressive weakness and difficulty ambulating in association with some mild shortness of breath. Apparently, she was informed by her PCP to come back to the ER due to recent laboratory abnormalities but the specifics of these labs are not available to me and were not detailed to the patient or her family in general. Other than the significant weakness and mild shortness of breath, she had no other acute complaints voiced. Workup and evaluation the emergency room demonstrated the patient
[2022-05-17] MEDS: HEPARIN SODIUM 5,000 UNITS/ML VIAL 5000 UNITS SUB-Q ×2 (13:45→21:50)
[2022-05-17 16:20] LABS: Glucose Point of Care 111 mg/dl (65-105)
[2022-05-17] MEDS: BUMETANIDE INJ 1 MG/4 ML VIAL IV PUSH (16:47)
[2022-05-17] MEDS: MAGNESIUM OXIDE 400 MG TABLET PO (16:47)
[2022-05-17 20:25] LABS: Glucose Point of Care 126 mg/dl (65-105)
[2022-05-17] MEDS: ATORVASTATIN 40 MG TABLET PO (20:28)
[2022-05-17] MEDS: ASPIRIN 81 MG CHEWABLE TABLET PO (21:50)
[2022-05-18] VITALS (11 sets, daily range): BP systolic 144–160; BP diastolic 33–42; PULSE 54–89; RESP 16; TEMP 36.3–36.8; O2SAT 57–93
[2022-05-18] MEDS: HEPARIN SODIUM 5,000 UNITS/ML VIAL 5000 UNITS SUB-Q ×3 (05:46→22:11)
[2022-05-18 06:52] LABS: Basophils Absolute Auto 0.1 K/mm3 (0.0-0.1); Basophils Percent Auto 0.8 % (0.2-1.2); Eosinophils Absolute Auto 0.8 K/mm3 (0-0.3); Eosinophils Percent Auto 10.7 % (0-4.4); Hematocrit 24.7 % (37.0-47.0); Hemoglobin 7.4 g/dL (12.0-15.0); Immature Granulocyte Absolute 0.03 K/mm3 (0.00-0.031); Immature Granulocyte Percent A 0.4 % (0-0.5); Lymphocytes Absolute Auto 1.42 K/mm3 (0.9-3.2); Lymphocytes Percent Auto 18.1 % (18.3-44.2); Mean Corpuscular Hemoglobin 28.4 pg (26-34); Mean Corpuscular Volume 94.6 fl (80-100); Mean Platelet Volume 9.7 fl (7.4-10.4); Monocytes Absolute Auto 0.7 K/mm3 (0.1-0.6); Monocytes Percent Auto 9.4 % (2.6-8.5); Neutrophils Absolute Auto 4.8 K/mm3 (1.3-6.7); Neutrophils Percent Auto 60.6 % (45.5-73.1); Platelet Count Result 161 k/mm3 (150-375); Red Blood Count 2.61 M/mm3 (4.2-5.4); Red Cell Distribution Width 16.5 % (11.5-14.5); White Blood Count 7.8 K/mm3 (4.5-10.0)
[2022-05-18 07:04] LABS: Alanine Aminotransferase 12 U/L (6-35); Albumin Level 3.3 g/dL (3.5-5.1); Alkaline Phosphatase 121 U/L (38-126); Anion Gap 13 mmol/L (8-16); Aspartate Amino Transferase 20 U/L (14-36); Bilirubin,Total 0.4 mg/dL (0.2-1.3); Blood Urea Nitrogen 68 mg/dL (7-17); Calcium 7.4 mg/dL (8.4-10.2); Carbon Dioxide 24 mmol/L (22-30); Chloride 103 mmol/L (98-107); Estimated Glomerular Filt Rate 9; Glucose 108 mg/dL (65-110); Potassium 4.1 mmol/L (3.4-5.0); Sodium 140 mmol/L (137-145)
[2022-05-18 07:41] LABS: Glucose Point of Care 125 mg/dl (65-105)
[2022-05-18] MEDS: carvediloL 12.5 MG TABLET PO ×2 (08:26→22:10)
[2022-05-18] MEDS: amLODIPine BESYLATE 5 MG TABLET 10 MG PO (08:27)
[2022-05-18] MEDS: BUMETANIDE INJ 1 MG/4 ML VIAL IV PUSH ×2 (08:28→16:24)
--- NOTE | 2022-05-18 08:29 | PM.IMPN ---
Progress Note: A&P Assessment and Plan (1) Acute kidney injury superimposed on chronic kidney disease: Code(s): N17.9 - Acute kidney failure, unspecified; N18.9 - Chronic kidney disease, unspecified Status: Acute Assessment and Plan: Severe, appreciate nephrology consultation and management, currently attempting diuresis Surgery consulted for catheter placement so patient can start hemodialysis, could consider conversion to peritoneal dialysis on an outpatient basis (2) Acute hyperkalemia: Code(s): E87.5 - Hyperkalemia Status: Acute Assessment and Plan: Monitor, status post treatment, continue to monitor telemetry (3) Essential hypertension: Code(s): I10 - Essential (primary) hypertension Status: Chronic Assessment and Plan: Stable, continue home meds (4) Chronic diastolic CHF (congestive heart failure): Code(s): I50.32 - Chronic diastolic (congestive) heart failure Status: Acute Assessment and Plan: Stable, suspect volume overload is secondary to kidney failure at this time (5) Hx of CABG: Code(s): Z95.1 - Presence of aortocoronary bypass graft Status: Acute Assessment and Plan: Continue home meds, on aspirin and Plavix (6) Obstructive sleep apnea: Code(s): G47.33 - Obstructive sleep apnea (adult) (pediatric) Status: Acute Assessment and Plan: Consult respiratory therapy for nocturnal CPAP (7) Diabetes: Code(s): E11.9 - Type 2 diabetes mellitus without complications Status: Chronic Assessment and Plan: A1c was 5.4, no need for Accu-Cheks or sliding scale insulin, will monitor glucose daily on BMPs (8) GERD (gastroesophageal reflux disease): Code(s): K21.9 - Gastro-esophageal reflux disease without esophagitis Status: Acute Assessment and Plan: Continue PPI Plan DVT prophylaxis with heparin GI prophylaxis with PPI Code status full code Subjective Date/time seen: 05/18/22 08:29 Interval history: No overnight events noted. No chest pain or shortness of breath. No nausea, vomiting or diarrhea. No fevers or chills. Patient feels about the same as yesterday, continues to feel generally weak and fatigued. Review of Systems Review of Systems: 12 point review of systems was assessed and was negative except as noted in the HPI Exam Narrative: General: No acute distress, alert and oriented per baseline HEENT: Atraumatic, normocephalic, mucous membranes moist CV: Regular rate and rhythm, S1, S2 Lungs: Clear to auscultation bilaterally, no rales or crackles noted, no wheezes, good air entry Abdomen: Soft, nontender, nondistended Extremities: Normal to inspection Skin: No rashes noted, no lesions or wounds seen Psych: Euthymic, normal affect Objective Data Vital Signs Vital Signs: Vital Signs - 24 hr 05/17/22 11:01 05/17/22 11:17 05/17/22 12:00 Temperature Pulse Rate 62 55 L Respiratory Rate Blood Pressure Pulse Oximetry 92 Oxygen Delivery Room Air 05/17/22 14:00 05/17/22 16:00 05/17/22 20:29 Temperature 98.1 F Pulse Rate 57 L 55 L 52 L Respiratory Rate 14 Blood Pressure 137/55 L Pulse Oximetry 93 Oxygen Delivery 05/17/22 20:28 05/17/22 21:45 05/17/22 22:51 Temperature 97.7 F Pulse Rate 60 58 L Respiratory Rate 22 H 16 Blood Pressure 148/41 H Pulse Oximetry 93 91 Oxygen Delivery Room Air Autopap 05/17/22 20:00 05/18/22 00:00 05/18/22 04:00 Temperature Pulse Rate 58 L 55 L 55 L Respiratory Rate Blood Pressure Pulse Oximetry Oxygen Delivery 05/18/22 05:59 05/18/22 08:26 Temperature 97.3 F L Pulse Rate 89 80 Respiratory Rate 16 Blood Pressure 160/33 H Pulse Oximetry 57 L Oxygen Delivery Intake/Output Intake/Output: Intake & Output 05/15/22 05/16/22 05/17/22 05/18/22 23:59 23:59 23:59 23:59 Intake Total 1390 175 Output Total 1000 850 [employer] [facility]
[2022-05-18] MEDS: allopurinoL 100 MG TABLET PO (09:47)
[2022-05-18] MEDS: MAGNESIUM OXIDE 400 MG TABLET PO ×2 (09:47→16:24)
[2022-05-18] MEDS: ISOSORBIDE MONONITRATE 60 MG TAB.ER.24H PO (09:47)
[2022-05-18] MEDS: hydrALAZINE HCL 50 MG TABLET PO ×3 (09:47→16:24)
[2022-05-18] MEDS: PANTOPRAZOLE 40 MG TABLET PO (09:47)
[2022-05-18] MEDS: BENZOCAINE/MENTHOL (*BKC) 18 EA LOZENGE 1 LOZENGE PO (10:22)
[2022-05-18 11:35] LABS: Glucose Point of Care 169 mg/dl (65-105)
--- NOTE | 2022-05-18 13:04 | PM.PNNEP ---
Progress Note: A&P Assessment and Plan (1) Chronic kidney disease (CKD), stage V: Code(s): N18.5 - Chronic kidney disease, stage 5 Status: Chronic Assessment and Plan: due to progression of her known disease from diabetes/hypertension suspect she has reached a point where dialysis is needed I worry some of her symptoms (fatigue/weakness...etc) is related to uremia furthermore, her recurrent hospitalizations are at least partly related to her renal dysfunction she is interested in doing peritoneal dialysis but I do not think she can wait for this will proceed with initiation of hemodialysis once tunneled HD catheter placed (2) Volume overload: Code(s): E87.70 - Fluid overload, unspecified Status: Acute Assessment and Plan: as evidence of CXR and exam on IV bumex for now plan further fluid removal/ultrafiltration once dialysis is initiated (3) Essential hypertension: Code(s): I10 - Essential (primary) hypertension Status: Chronic Assessment and Plan: reasonable control at this time follow trend of hemodynamics (4) Chronic diastolic CHF (congestive heart failure): Code(s): I50.32 - Chronic diastolic (congestive) heart failure Status: Acute Assessment and Plan: seems compensated current volume status more related to kidney dysfunction IV diuretics further fluid removal with dialysis when initiated (5) Diabetes: Code(s): E11.9 - Type 2 diabetes mellitus without complications Status: Chronic Assessment and Plan: follow glucose readings (although last A1c at goal if not better) Will continue to follow. Subjective Date/time seen: 05/18/22 13:04 No real significant change noted -- still weak and fatigued although is responding to IV diuretic therapy; no acute distress voiced at this time; no issues/events overnight. Exam Narrative: General: Elderly female in NAD Heart: normal S1 and S2; no rub Lungs: decreased at bases Abdomen: soft, nontender, nondistended, positive bowel sounds Extremities: no cyanosis or clubbing; 2+ edema Skin: warm and dry Objective Data Vital Signs Vital Signs: Vital Signs Temp Pulse Resp BP Pulse Ox O2 Del Method 05/18/22 12:00 58 L 05/18/22 08:00 54 L 05/18/22 08:30 Room Air 05/18/22 08:26 80 05/18/22 05:59 36.3 C L 89 16 160/33 H 57 L 05/18/22 04:00 55 L 05/18/22 00:00 55 L 05/17/22 20:00 58 L 05/17/22 22:51 58 L 16 91 Autopap 05/17/22 21:45 36.5 C 60 22 H 148/41 H 93 05/17/22 20:28 Room Air 05/17/22 20:29 52 L Intake/Output Intake/Output: Intake & Output 05/15/22 05/16/22 05/17/22 05/18/22 23:59 23:59 23:59 23:59 Intake Total 1390 1555 Output Total 1000 1650 Balance 390 -95 Meds/Results Medications: Active Medications Generic Name Dose Route Start Last Admin Trade Name Freq PRN Reason Stop Dose Admin Allopurinol 100 mg 05/17/22 09:00 05/18/22 09:47 Allopurinol 100 Mg Tablet PO 100 mg DAILY MACARIO Administration Amlodipine Besylate 10 mg 05/17/22 09:00 05/18/22 08:27 Amlodipine Besylate 5 Mg Tablet PO 10 mg DAILY MACARIO Administration Aspirin 81 mg 05/17/22 21:00 05/17/22 21:50 Aspirin 81 Mg Chewable Tablet PO 06/16/22 20:59 81 mg HS MACARIO Administration Atorvastatin Calcium 40 mg 05/17/22 21:00 05/17/22 20:28 Atorvastatin 40 Mg Tablet PO 40 mg HS MACARIO Administration Benzocaine 1 lozenge 05/17/22 22:02 05/18/22 10:22 Benzocaine/Menthol (*Bkc) 18 Ea Lozenge PO 1 lozenge PRN PRN Administration Sore Throat Bumetanide 1 mg 05/17/22 17:00 05/18/22 16:24 Bumetanide Inj 1 Mg/4 Ml Vial IV PUSH 1 mg BID MACARIO Administration Carvedilol 12.5 mg 05/17/22 10:30 05/18/22 08:26 Carvedilol 12.5 Mg Tablet PO 12.5 mg Q12HR MACARIO Administration Clopidogrel Bisulfate 75 mg
--- NOTE | 2022-05-18 13:04 | P.PNNP_ITS ---
Progress Note: A&P Assessment and Plan (1) Chronic kidney disease (CKD), stage V: Code(s): N18.5 - Chronic kidney disease, stage 5 Status: Chronic Assessment and Plan: * due to progression of her known disease from diabetes/hypertension * suspect she has reached a point where dialysis is needed * I worry some of her symptoms (fatigue/weakness...etc) is related to uremia * furthermore, her recurrent hospitalizations are at least partly related to her renal dysfunction * she is interested in doing peritoneal dialysis but I do not think she can wait for this * will proceed with initiation of hemodialysis once tunneled HD catheter placed (2) Volume overload: Code(s): E87.70 - Fluid overload, unspecified Status: Acute Assessment and Plan: * as evidence of CXR and exam * on IV bumex for now * plan further fluid removal/ultrafiltration once dialysis is initiated (3) Essential hypertension: Code(s): I10 - Essential (primary) hypertension Status: Chronic Assessment and Plan: * reasonable control at this time * follow trend of hemodynamics (4) Chronic diastolic CHF (congestive heart failure): Code(s): I50.32 - Chronic diastolic (congestive) heart failure Status: Acute Assessment and Plan: * seems compensated * current volume status more related to kidney dysfunction * IV diuretics * further fluid removal with dialysis when initiated (5) Diabetes: Code(s): E11.9 - Type 2 diabetes mellitus without complications Status: Chronic Assessment and Plan: * follow glucose readings (although last A1c at goal if not better) Will continue to follow. Subjective Date/time seen: 05/18/22 13:04 No real significant change noted -- still weak and fatigued although is responding to IV diuretic therapy; no acute distress voiced at this time; no issues/events overnight. Exam Narrative: General: Elderly female in NAD Heart: normal S1 and S2; no rub Lungs: decreased at bases Abdomen: soft, nontender, nondistended, positive bowel sounds Extremities: no cyanosis or clubbing; 2+ edema Skin: warm and dry Objective Data Vital Signs Vital Signs: Vital Signs Temp Pulse Resp BP Pulse Ox O2 Del Method 05/18/22 12:00 58 L 05/18/22 08:00 54 L 05/18/22 08:30 Room Air 05/18/22 08:26 80 05/18/22 05:59 36.3 C L 89 16 160/33 H 57 L 05/18/22 04:00 55 L 05/18/22 00:00 55 L 05/17/22 20:00 58 L 05/17/22 22:51 58 L 16 91 Autopap 05/17/22 21:45 36.5 C 60 22 H 148/41 H 93 05/17/22 20:28 Room Air 05/17/22 20:29 52 L Intake/Output Intake/Output: Intake & Output 05/15/22 05/16/22 05/17/22 05/18/22 23:59 23:59 23:59 23:59 Intake Total 1390 1555 Output Total 1000 1650 Balance 390 -95 Meds/Results Medications: Active Medications Generic Name Dose Route Start Last Admin Trade Name Flipq PRN Reason Stop Dose Admin Allopurinol 100 mg 05/17/22 09:00 05/18/22 09:47 Allopurinol 100 Mg Tablet PO 100 mg DAILY MACARIO Administration Amlodipine Besylate 10 mg 05/06
[2022-05-18 16:48] LABS: Glucose Point of Care 137 mg/dl (65-105)
[2022-05-18] MEDS: ceFAZolin 2 GM/D5W 50 ML 2 GM/50 ML BAG IVPB (22:09)
[2022-05-18] MEDS: ATORVASTATIN 40 MG TABLET PO (22:11)
[2022-05-18] MEDS: ASPIRIN 81 MG CHEWABLE TABLET PO (22:11)
[2022-05-19] VITALS (29 sets, daily range): BP systolic 129–166; BP diastolic 38–69; PULSE 49–64; RESP 16–20; TEMP 36–36.8; O2SAT 88–99
[2022-05-19 01:18] LABS: Glucose Point of Care 123 mg/dl (65-105)
[2022-05-19] MEDS: HEPARIN SODIUM 5,000 UNITS/ML VIAL 5000 UNITS SUB-Q (05:17)
[2022-05-19 07:25] LABS: Basophils Absolute Auto 0.1 K/mm3 (0.0-0.1); Basophils Percent Auto 0.6 % (0.2-1.2); Eosinophils Absolute Auto 0.8 K/mm3 (0-0.3); Eosinophils Percent Auto 10.1 % (0-4.4); Hematocrit 24.7 % (37.0-47.0); Hemoglobin 7.5 g/dL (12.0-15.0); Immature Granulocyte Absolute 0.04 K/mm3 (0.00-0.031); Immature Granulocyte Percent A 0.5 % (0-0.5); Lymphocytes Absolute Auto 1.47 K/mm3 (0.9-3.2); Lymphocytes Percent Auto 18.7 % (18.3-44.2); Mean Corpuscular HGB Conc 30.4 g/dl (32-36); Mean Corpuscular Volume 92.2 fl (80-100); Mean Platelet Volume 9.7 fl (7.4-10.4); Monocytes Absolute Auto 0.8 K/mm3 (0.1-0.6); Monocytes Percent Auto 9.8 % (2.6-8.5); Neutrophils Absolute Auto 4.7 K/mm3 (1.3-6.7); Neutrophils Percent Auto 60.3 % (45.5-73.1); Platelet Count Result 153 k/mm3 (150-375); Red Blood Count 2.68 M/mm3 (4.2-5.4); Red Cell Distribution Width 16.5 % (11.5-14.5); White Blood Count 7.9 K/mm3 (4.5-10.0)
[2022-05-19 07:45] LABS: Alanine Aminotransferase 11 U/L (6-35); Albumin Level 3.2 g/dL (3.5-5.1); Alkaline Phosphatase 116 U/L (38-126); Anion Gap 12 mmol/L (8-16); Aspartate Amino Transferase 21 U/L (14-36); Bilirubin,Total 0.3 mg/dL (0.2-1.3); Blood Urea Nitrogen 61 mg/dL (7-17); Calcium 7.7 mg/dL (8.4-10.2); Carbon Dioxide 25 mmol/L (22-30); Chloride 101 mmol/L (98-107); Estimated Glomerular Filt Rate 10; Glucose 104 mg/dL (65-110); Potassium 3.8 mmol/L (3.4-5.0); Sodium 138 mmol/L (137-145)
[2022-05-19 08:07] LABS: Hepatitis B Surface Antigen Negative (Negative)
[2022-05-19 08:13] LABS: HAV RESULT Negative (Negative); Hepatitis B Core IgM Result Negative (Negative)
[2022-05-19 08:17] LABS: Glucose Point of Care 122 mg/dl (65-105)
[2022-05-19 08:24] LABS: Hepatitis B Surface Anti Res Negative; Hepatitis C Virus Antibody Negative (Negative)
[2022-05-19] MEDS: amLODIPine BESYLATE 5 MG TABLET 10 MG PO (08:35)
[2022-05-19] MEDS: carvediloL 12.5 MG TABLET PO ×2 (08:35→21:47)
[2022-05-19] MEDS: ISOSORBIDE MONONITRATE 60 MG TAB.ER.24H PO (08:35)
[2022-05-19] MEDS: PANTOPRAZOLE 40 MG TABLET PO (08:35)
[2022-05-19] MEDS: hydrALAZINE HCL 50 MG TABLET PO ×2 (08:35→17:49)
--- NOTE | 2022-05-19 09:05 | PM.IMPN ---
Progress Note: A&P Assessment and Plan (1) Acute kidney injury superimposed on chronic kidney disease: Code(s): N17.9 - Acute kidney failure, unspecified; N18.9 - Chronic kidney disease, unspecified Status: Acute Assessment and Plan: Surgery consulted for catheter placement so patient can start hemodialysis, could consider conversion to peritoneal dialysis on an outpatient basis (2) Acute hyperkalemia: Code(s): E87.5 - Hyperkalemia Status: Acute Assessment and Plan: Monitor, status post treatment, continue to monitor telemetry (3) Essential hypertension: Code(s): I10 - Essential (primary) hypertension Status: Chronic Assessment and Plan: Stable, continue home meds (4) Chronic diastolic CHF (congestive heart failure): Code(s): I50.32 - Chronic diastolic (congestive) heart failure Status: Acute Assessment and Plan: Stable, suspect volume overload is secondary to kidney failure at this time (5) Hx of CABG: Code(s): Z95.1 - Presence of aortocoronary bypass graft Status: Acute Assessment and Plan: Continue home meds, on aspirin and Plavix (6) Obstructive sleep apnea: Code(s): G47.33 - Obstructive sleep apnea (adult) (pediatric) Status: Acute Assessment and Plan: Consult respiratory therapy for nocturnal CPAP (7) Diabetes: Code(s): E11.9 - Type 2 diabetes mellitus without complications Status: Chronic Assessment and Plan: A1c was 5.4, no need for Accu-Cheks or sliding scale insulin, will monitor glucose daily on BMPs (8) GERD (gastroesophageal reflux disease): Code(s): K21.9 - Gastro-esophageal reflux disease without esophagitis Status: Acute Assessment and Plan: Continue PPI Plan DVT prophylaxis with heparin, currently held for HD catheter placement, ok to restart tomorrow afternoon, plavix held for 2 weeks GI prophylaxis with PPI Code status full code Subjective Date/time seen: 05/19/22 09:05 Interval history: Unable to see patient, getting catheter placed for dialysis and then getting dialyzed. Exam Narrative: In dialysis Objective Data Vital Signs Vital Signs: Vital Signs - 24 hr 05/18/22 12:00 05/18/22 14:00 05/18/22 16:00 Temperature 98 F Pulse Rate 58 L 58 L 59 L Respiratory Rate 16 Blood Pressure 144/42 H Pulse Oximetry 92 Oxygen Delivery 05/18/22 22:10 05/18/22 20:00 05/18/22 20:00 Temperature Pulse Rate 65 61 65 Respiratory Rate 16 Blood Pressure Pulse Oximetry 92 Oxygen Delivery Room Air 05/18/22 22:00 05/19/22 00:05 05/19/22 00:00 Temperature 98.3 F Pulse Rate 63 58 L Respiratory Rate 16 Blood Pressure 155/35 H Pulse Oximetry 93 Oxygen Delivery CPAP 05/19/22 04:00 05/19/22 06:00 05/19/22 08:03 Temperature 97.9 F 98.3 F Pulse Rate 57 L 64 61 Respiratory Rate 17 18 Blood Pressure 150/39 H 156/48 H Pulse Oximetry 96 92 Oxygen Delivery 05/19/22 08:35 Temperature Pulse Rate 64 Respiratory Rate Blood Pressure Pulse Oximetry Oxygen Delivery Intake/Output Intake/Output: Intake & Output 05/16/22 05/17/22 05/18/22 05/19/22 23:59 23:59 23:59 23:59 Intake Total 1390 1555 Output Total 1000 1650 900 Balance 390 -95 -900 Meds/Results Medications: Active Medications Generic Name Dose Route Start Last Admin Trade Name Flipq PRN Reason Stop Dose Admin Allopurinol 100 mg 05/17/22 09:00 05/18/22 09:47 Allopurinol 100 Mg Tablet PO 100 mg DAILY MACARIO Administration Amlodipine Besylate 10 mg 05/17/22 09:00 05/19/22 08:35 Amlodipine Besylate 5 Mg Tablet PO 10 mg DAILY MACARIO Administration Aspirin 81 mg 05/17/22 21:00 05/18/22 22:11 Aspirin 81 Mg Chewable Tablet PO 06/16/22 20:59 81 mg HS MACARIO Administration Atorvastatin Calcium 40 mg 05/17/22 21:00 05/18/22 22:11 Atorvastatin 40 Mg Tablet PO 40 mg HS MACARIO Admini
[2022-05-19 11:03] LABS: Iron 30 ug/dL (37-170)
[2022-05-19 11:15] LABS: Percent Iron Saturation 17 % (20-50)
--- NOTE | 2022-05-19 11:47 | WPDHPUPDATE1 ---
History and Physical Update Update Date/Time: 05/19/22 11:47 History and Physical has been reviewed, including an updated exam of the patient. There are changes in the patient's condition.This patient has had the diuretics and had some improvement of her CHF but her creatinine and BUN are still high and she has had a thorough discussion with Dr. Ybarra and wishes to proceed with hemodialysis. Plavix is not been hold for 2 days. Patient did get subcu heparin at 5:40 a.m. this morning but will hold it after surgery. Risks, benefits, and alternatives have been discussed and questions answered. Patient agrees to proceed with procedure.
--- NOTE | 2022-05-19 12:00 | WPDANESEPPF ---
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, hyperkalemia Patient Data Age: 76 Gender: F Height: 1.5 m Weight: 61.3 kg Last Vital Signs Temp 98.3 F 05/19/22 08:03 Pulse 64 05/19/22 08:35 Resp 18 05/19/22 08:03 BP 156/48 H 05/19/22 08:03 Pulse Ox 92 05/19/22 08:03 O2 Del Method Room Air 05/19/22 08:00 Allergies Allergy/AdvReac Type Severity Reaction Status Date / Time gabapentin Allergy Unknown Unknown Verified 05/17/22 04:49 metronidazole [From Flagyl] Allergy Unknown Unknown Verified 05/17/22 04:49 Penicillins Allergy Unknown ITCHING Verified 04/27/22 00:17 tramadol Allergy Unknown HIVES Verified 04/27/22 00:17 hydrocodone AdvReac Mild ITCHING Verified 05/17/22 04:49 terbinafine AdvReac Mild MESSED UP Verified 05/17/22 04:49 BS AND BP triamterene AdvReac Mild ITCH Verified 05/17/22 04:49 carbamazepine AdvReac Unknown Unknown Verified 05/17/22 04:49 ciprofloxacin AdvReac Unknown Dizziness Verified 05/17/22 04:49 labetalol AdvReac Unknown Dizziness Verified 05/17/22 04:49 Sulfa (Sulfonamide AdvReac Unknown Unknown Verified 05/17/22 04:49 Antibiotics) Home Medications Medication Instructions Recorded Confirmed Type allopurinol 300 mg tablet 100 mg PO DAILY 08/31/21 05/17/22 History atorvastatin 40 mg tablet 40 mg PO HS 08/31/21 05/17/22 History carvedilol 25 mg tablet 12.5 mg PO BID 08/31/21 05/17/22 History hydralazine 100 mg tablet 50 mg PO TID 08/31/21 05/17/22 History clopidogrel 75 mg tablet 75 mg PO DAILY 01/03/22 05/17/22 History aspirin 81 mg capsule 81 mg PO HS 04/26/22 05/17/22 History isosorbide mononitrate 30 mg 60 mg PO DAILY 04/26/22 05/17/22 History tablet,extended release 24 hr magnesium oxide 400 mg PO BID 04/26/22 05/17/22 History nitroglycerin 0.4 mg sublingual 0.4 mg sublingual Q5MIN PRN Chest 04/26/22 05/17/22 History tablet Pain furosemide 40 mg tablet 20 mg PO DAILY #30 tabs 05/01/22 05/17/22 Rx amlodipine 10 mg tablet 10 mg PO DAILY 05/17/22 05/17/22 History glimepiride 4 mg tablet 4 mg PO DAILY 05/17/22 05/17/22 History pantoprazole 40 mg tablet,delayed 40 mg PO DAILY 05/17/22 05/17/22 History release Laboratory Tests 05/18/22 05/18/22 05/19/22 16:46 22:44 06:42 WBC 7.9 K/mm3 K/mm3 (4.5-10.0) RBC 2.68 M/mm3 L M/mm3 (4.2-5.4) Hgb 7.5 g/dL L g/dL (12.0-15.0) Hct 24.7 % L % (37.0-47.0) MCV 92.2 fl fl (80-100) MCH 28.0 pg pg (26-34) MCHC 30.4 g/dl L g/dl (32-36) RDW 16.5 % H % (11.5-14.5) Plt Count 153 k/mm3 k/mm3 (150-375) MPV 9.7 fl fl (7.4-10.4) Immature Gran % (Auto) 0.5 % % (0-0.5) Neut % (Auto) 60.3 % % (45.5-73.1) Lymph % (Auto) 18.7 % % (18.3-44.2) [place] % (Auto) 9.8 % H % (2.6-8.5) Eos % (Auto) 10.1 % H % (0-4.4) Baso % (Auto) 0.6 % % (0.2-1.2) Lymph # (Auto) 1.47 K/mm3 K/mm3 (0.9-3.2) [place] # (Auto) 0.8 K/mm3 H K/mm3 (0.1-0.6) Eos # (Auto) 0.8 K/mm3 H K/mm3 (0-0.3) Baso # (Auto) 0.1 K/mm3 K/mm3 (0.0-0.1) Abs Immat Gran (auto) 0.04 K/mm3 H K/mm3 (0.00-0.031) Absolute Neuts (auto) 4.7 K/mm3 K/mm3 (1.3-6.7) Absolute Nucleated RBC 0.0 K/mm3 K/mm3 (0.0-0.012) Nucleated RBC % 0.0 % % (0.0-0.2) Sodium Potassium Chloride Carbon Dioxide Anion Gap BUN Creatinine Estim Creat Clear Calc Estimated GFR Glucose POC Capillary Glucose 137 mg/dl H mg/dl 123 mg/dl H mg/dl (65-105) (65-105) Calcium Iron TIBC
[2022-05-19 12:01] LABS: Glucose Point of Care 140 mg/dl (65-105)
[2022-05-19] MEDS: SODIUM CHLORIDE 0.9% IV 500 ML 30 ML IV CONT (12:15)
[2022-05-19] MEDS: ceFAZolin 2 GM/D5W 50 ML 2 GM/50 ML BAG IVPB (12:21)
[2022-05-19] MEDS: HEPARIN SODIUM 1,000 UNITS/ML VIAL 1000 UNITS IV PUSH (13:07)
[2022-05-19] MEDS: HEPARIN SODIUM, PORCINE 10,000 UNITS/10 ML VIAL 10000 UNITS IV PUSH (13:08)
[2022-05-19] MEDS: BUPIVACAINE/EPINEPHRINE 0.25% 50 ML VIAL INFILTRATE (13:24)
[2022-05-19 13:57] LABS: Glucose Point of Care 145 mg/dl (65-105)
--- NOTE | 2022-05-19 14:04 | W.PM.PROC2 ---
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 Surgeon Manohar Hunter MD [employer] behavioral health assistant Anesthesia Other (GIVS) Indications The patient has end-stage renal disease with need for access for hemodialysis Findings Normal Vascular anatomy in the Rt. neck. Description of Procedure The patient was placed in the supine position on the operating table and after induction of adequate mask general anesthesia by the nurse shuttler, we carefully rotated the patient's head and tilted slightly to the left then prepping both sides of the neck and chest with chlorhexidine. After waiting 3 minutes I carefully draped the patient, and we performed a time-out confirming the patient's site of surgery. Because of the patients size, a 32 cm DuraFlow catheter was selected. Using the ultrasound probe we carefully examined the anatomy in the right neck and saved a image of this in the chart. I used ultrasound to identify the right jugular vein in the mid neck and this was cannulated under direct vision with an 18-gauge Arrow needle on a syringe. Good dark blood was aspirated, the J-guidewire was advanced through the needle and into the central venous system using the usual Seldinger technique. C-arm fluoroscopy was used to confirm that the wire was then through the central venous system and then we removed the needle and blue guide off the wire. Following this, we measured the DuraFlow catheter such that the tip would be just into the right atrium or in the distal superior vena cava. A hemostat was placed on the drapes over the chest to guide where we would place this. Then the catheter was measured back to the entry site of the J- wire in a curvilinear fashion and down to the patient's chest overlying the right clavicle. Local anesthetic was placed into 3 graves, the exit site and then 2 more on the patient's lateral right neck such that a curvilinear path could be dissected through the subcutaneous tissues up to the insertion site on he patients right neck. Local anesthetic was infiltrated along the tract prior to tunneling. Incisions were made with a 11 blade knife at the exit site and the 2 counter incisions and then an 11 blade at the wire. The tunneling device was connected to the catheter and this was pulled through these incisions to make the subcutaneous tunnel a curvilinear course through the subcutaneous tissues to the insertion site. Then the wire was serially dilated with a 12, 14, and then a 16-Azerbaijani dilator over the pull away sheath. We watched the 16-Azerbaijani dilator and sheath go down into the central venous system with C-arm fluoroscopy and then removed the dilator wire after carefully covering the end of the catheter. I lost some blood, as we then inserted the catheter down into the central venous system. The catheter was held in place with a DeBakey forceps and then we carefully tore away the sheath leaving the catheter within the subcutaneous tissues and down into the Rt. jugular vein. Following this, C-arm fluoroscopy was used to examine the full course of the catheter. The tip was just into the right atrium and there was a good curvilinear course of the catheter in the neck down to the exit site over the right clavicle. Minimal bleeding was continuing, so we then went ahead and closed these incisions with some buried subcutaneous sutures of 4-0 Monocryl directly over the catheter at the insertion site and then buried subcutaneous sutures at each of the incisions except the exit site. 3-0 nylon was used to suture the catheter at its hub to the skin and an antibiotic disc was placed at the exit site. A 3rd 3-0 nylon was used to close the exit site skin slightly and then wrapped and tied over the catheter right as it came out of the skin. A Tegaderm and a 2 X 2 guaze were applied
[2022-05-19] MEDS: MAGNESIUM OXIDE 400 MG TABLET PO ×2 (14:46→18:10)
[2022-05-19] MEDS: allopurinoL 100 MG TABLET PO (14:46)
--- NOTE | 2022-05-19 15:22 | PM.PNNEP ---
Progress Note: A&P Assessment and Plan (1) End stage renal disease: Code(s): N18.6 - End stage renal disease Status: Chronic Assessment and Plan: due to progression of her known disease from diabetes/hypertension s/p HD catheter placement HD today and likely again tomorrow and day after fluid removal, clearance, and electrolytes control as tolerated transition to peritoneal dialysis as an outpatient will need outpatient hemodialysis arranged will inform Surgery of poor blood flows with HD catheter -- may need repositioning... (2) Volume overload: Code(s): E87.70 - Fluid overload, unspecified Status: Acute Assessment and Plan: as evidence of CXR and exam on IV bumex further fluid removal/ultrafiltration with dialysis (3) Essential hypertension: Code(s): I10 - Essential (primary) hypertension Status: Chronic Assessment and Plan: reasonable control at this time follow trend of hemodynamics (4) Chronic diastolic CHF (congestive heart failure): Code(s): I50.32 - Chronic diastolic (congestive) heart failure Status: Acute Assessment and Plan: seems compensated current volume status more related to kidney dysfunction IV diuretics further fluid removal with dialysis (5) Diabetes: Code(s): E11.9 - Type 2 diabetes mellitus without complications Status: Chronic Assessment and Plan: follow glucose readings (although last A1c at goal if not better) Will continue to follow. Subjective Date/time seen: 05/19/22 15:22 S/P tunneled HD catheter placement earlier today and currently receiving first dialysis treatment (seen on HD at 3:15PM); unfortunately, difficult to maintain blood flows with HD catheter (running ~ 180 - 200cc/min); no apparent distress noted. Exam Narrative: General: Elderly female in NAD Heart: normal S1 and S2; no rub Lungs: decreased at bases Abdomen: soft, nontender, nondistended, positive bowel sounds Extremities: no cyanosis or clubbing; 2+ edema Skin: warm and dry Objective Data Vital Signs Vital Signs: Vital Signs Temp Pulse Resp BP Pulse Ox O2 Del Method O2 Flow Rate 05/19/22 15:00 36.6 C 53 L 18 156/69 H 96 05/19/22 14:45 36.4 C L 55 L 16 148/42 H 88 L 05/19/22 16:00 53 L 144/59 H 05/19/22 15:45 55 L 129/59 L 05/19/22 15:30 54 L 145/60 H 05/19/22 15:15 49 L 144/62 H 05/19/22 15:09 50 L 143/59 H 05/19/22 14:50 2 05/19/22 14:54 36.7 C 53 L 16 151/67 H 05/19/22 14:27 52 L 16 141/40 H 96 Nasal Cannula 2 05/19/22 14:00 53 L 16 140/45 L 99 Simple Face Mask 6 05/19/22 14:15 52 L 16 143/42 H 96 Nasal Cannula 2 05/19/22 14:08 Nasal Cannula 2 05/19/22 13:46 36.4 C L 54 L 18 141/43 H 97 Simple Face Mask 6 05/19/22 12:06 36.8 C 62 18 156/42 H 93 Room Air 05/19/22 08:00 Room Air 05/19/22 08:00 59 L 05/19/22 08:35 64 05/19/22 08:03 36.8 C 61 18 156/48 H 92 05/19/22 06:00 36.6 C 64 17 150/39 H 96 05/19/22 04:00 57 L 05/19/22 00:00 58 L 05/19/22 00:05 CPAP 05/18/22 22:00 36.8 C 63 16 155/35 H 93 05/18/22 20:00 65 16 92 Room Air 05/18/22 20:00 61 05/18/22 22:10 65 Intake/Output Intake/Output: Intake & Output 05/16/22 05/17/22 05/18/22 05/19/22 23:59 23:59 23:59 23:59 Intake Total 1390 1555 50 Output Total 1000 1650 900 Balance 390 -89 -840 Meds/Results Medications: Active Medications Generic Name Dose Route Start Last Admin Trade Name Flipq PRN Reason Stop Dose Admin Allopurinol 100 mg 05/17/22 09:00 05/19/22 14:46 Allopurinol 100 Mg Tablet PO 100 mg DAILY MACARIO Administration Amlodipine Besylate 10 mg 05/17/22 09:00 05/19/22 08:35 Amlodipine Besylate 5 Mg Tablet PO 10 mg DAILY MACARIO Administration Aspirin 81 m
[2022-05-19 17:27] LABS: Glucose Point of Care 110 mg/dl (65-105)
[2022-05-19] MEDS: BUMETANIDE INJ 1 MG/4 ML VIAL IV PUSH (17:50)
[2022-05-19] MEDS: SENNA/DOCUSATE SODIUM TABLET 2 TAB PO (21:46)
[2022-05-19] MEDS: ATORVASTATIN 40 MG TABLET PO (21:47)
[2022-05-19] MEDS: ASPIRIN 81 MG CHEWABLE TABLET PO (21:47)
[2022-05-19 21:59] LABS: Glucose Point of Care 94 mg/dl (65-105)
[2022-05-20] VITALS (30 sets, daily range): BP systolic 140–189; BP diastolic 32–68; PULSE 54–587; RESP 16–20; TEMP 36–36.8; O2SAT 91–97
[2022-05-20 06:30] LABS: Basophils Absolute Auto 0.1 K/mm3 (0.0-0.1); Basophils Percent Auto 0.8 % (0.2-1.2); Eosinophils Absolute Auto 0.8 K/mm3 (0-0.3); Hematocrit 24.7 % (37.0-47.0); Hemoglobin 7.5 g/dL (12.0-15.0); Immature Granulocyte Absolute 0.04 K/mm3 (0.00-0.031); Immature Granulocyte Percent A 0.5 % (0-0.5); Lymphocytes Absolute Auto 0.95 K/mm3 (0.9-3.2); Lymphocytes Percent Auto 12.2 % (18.3-44.2); Mean Corpuscular HGB Conc 30.4 g/dl (32-36); Mean Corpuscular Hemoglobin 28.4 pg (26-34); Mean Corpuscular Volume 93.6 fl (80-100); Mean Platelet Volume 9.2 fl (7.4-10.4); Monocytes Absolute Auto 0.8 K/mm3 (0.1-0.6); Monocytes Percent Auto 10.2 % (2.6-8.5); Neutrophils Absolute Auto 5.2 K/mm3 (1.3-6.7); Neutrophils Percent Auto 66.3 % (45.5-73.1); Platelet Count Result 127 k/mm3 (150-375); Red Blood Count 2.64 M/mm3 (4.2-5.4); Red Cell Distribution Width 16.5 % (11.5-14.5); White Blood Count 7.8 K/mm3 (4.5-10.0)
[2022-05-20 06:42] LABS: Alanine Aminotransferase 6 U/L (6-35); Albumin Level 3.1 g/dL (3.5-5.1); Alkaline Phosphatase 113 U/L (38-126); Anion Gap 10 mmol/L (8-16); Aspartate Amino Transferase 19 U/L (14-36); Bilirubin,Total 0.5 mg/dL (0.2-1.3); Blood Urea Nitrogen 32 mg/dL (7-17); Calcium 7.5 mg/dL (8.4-10.2); Carbon Dioxide 27 mmol/L (22-30); Chloride 104 mmol/L (98-107); Estimated Glomerular Filt Rate 16; Glucose 105 mg/dL (65-110); Potassium 3.9 mmol/L (3.4-5.0); Sodium 141 mmol/L (137-145)
[2022-05-20] MEDS: PANTOPRAZOLE 40 MG TABLET PO (08:26)
[2022-05-20 08:28] LABS: Glucose Point of Care 118 mg/dl (65-105)
--- NOTE | 2022-05-20 10:25 | PC.NURSE ---
To dialysis via bed
--- NOTE | 2022-05-20 10:43 | PM.IMPN ---
Progress Note: A&P Assessment and Plan (1) Acute kidney injury superimposed on chronic kidney disease: Code(s): N17.9 - Acute kidney failure, unspecified; N18.9 - Chronic kidney disease, unspecified Status: Acute Assessment and Plan: Status post 2 cycles of hemodialysis, appreciate nephrology (2) Acute hyperkalemia: Code(s): E87.5 - Hyperkalemia Status: Acute Assessment and Plan: Managed by Nephrology (3) Essential hypertension: Code(s): I10 - Essential (primary) hypertension Status: Chronic Assessment and Plan: Stable, continue home meds (4) Chronic diastolic CHF (congestive heart failure): Code(s): I50.32 - Chronic diastolic (congestive) heart failure Status: Acute Assessment and Plan: Stable, suspect volume overload is secondary to kidney failure at this time (5) Hx of CABG: Code(s): Z95.1 - Presence of aortocoronary bypass graft Status: Acute Assessment and Plan: Continue home meds, on aspirin and Plavix (6) Obstructive sleep apnea: Code(s): G47.33 - Obstructive sleep apnea (adult) (pediatric) Status: Acute Assessment and Plan: Consult respiratory therapy for nocturnal CPAP (7) Diabetes: Code(s): E11.9 - Type 2 diabetes mellitus without complications Status: Chronic Assessment and Plan: A1c was 5.4, no need for Accu-Cheks or sliding scale insulin, will monitor glucose daily on BMPs (8) GERD (gastroesophageal reflux disease): Code(s): K21.9 - Gastro-esophageal reflux disease without esophagitis Status: Acute Assessment and Plan: Continue PPI Plan DVT prophylaxis with heparin, currently held for HD catheter placement, ok to restart tomorrow afternoon, plavix held for 2 weeks GI prophylaxis with PPI Code status full code Subjective Date/time seen: 05/20/22 10:43 Interval history: Patient has received 2 cycles of hemodialysis. They are having some difficulty with her port. She is having a dry cough. Review of Systems Review of Systems: 12 point review of systems was assessed and was negative except as noted in the HPI Exam Narrative: General: No acute distress, alert and oriented per baseline HEENT: Atraumatic, normocephalic, mucous membranes moist CV: Regular rate and rhythm, S1, S2 Lungs: Clear to auscultation bilaterally, no rales or crackles noted, no wheezes, good air entry Abdomen: Soft, nontender, nondistended Extremities: Normal to inspection Skin: No rashes noted, no lesions or wounds seen Psych: Euthymic, normal affect Objective Data Vital Signs Vital Signs: Vital Signs - 24 hr 05/19/22 12:06 05/19/22 13:46 05/19/22 14:08 Temperature 98.3 F 97.5 F L Pulse Rate 62 54 L Respiratory Rate 18 18 Blood Pressure 156/42 H 141/43 H Pulse Oximetry 93 97 Oxygen Delivery Room Air Simple Face Mask Nasal Cannula Oxygen Flow Rate 6 2 05/19/22 14:15 05/19/22 14:00 05/19/22 14:27 Temperature Pulse Rate 52 L 53 L 52 L Respiratory Rate 16 16 16 Blood Pressure 143/42 H 140/45 L 141/40 H Pulse Oximetry 96 99 96 Oxygen Delivery Nasal Cannula Simple Face Mask Nasal Cannula Oxygen Flow Rate 2 6 2 05/19/22 14:54 05/19/22 14:50 05/19/22 15:09 Temperature 98.1 F Pulse Rate 53 L 50 L Respiratory Rate 16 Blood Pressure 151/67 H 143/59 H Pulse Oximetry Oxygen Delivery Oxygen Flow Rate 2 05/19/22 15:15 05/19/22 15:30 05/19/22 15:45 Temperature Pulse Rate 49 L 54 L 55 L Respiratory Rate Blood Pressure 144/62 H 145/60 H 129/59 L Pulse Oximetry Oxygen Delivery Oxygen Flow Rate 05/19/22 16:00 05/19/22 14:45 05/19/22 15:00 Temperature 97.5 F L 97.8 F Pulse Rate 53 L 55 L 53 L Respiratory Rate 16 18 Blood Pressure 144/59 H 148/42 H 156/69 H Pulse Oximetry 88 L 96 Oxygen Delivery Oxygen Flow Rate 05/19/22 15:30 05/19/22 16:30 05/19/22 16:00 Temperature 97.9 F 97
--- NOTE | 2022-05-20 11:00 | P.PNNP_ITS ---
Progress Note: A&P Assessment and Plan (1) End stage renal disease: Code(s): N18.6 - End stage renal disease Status: Chronic Assessment and Plan: * due to progression of her known disease from diabetes/hypertension * s/p HD catheter placement * HD today and likely again tomorrow * fluid removal, clearance, and electrolytes control as tolerated * transition to peritoneal dialysis as an outpatient * will need outpatient hemodialysis arranged * Surgery informed of poor blood flows with HD catheter -- may need rep ositioning... (2) Volume overload: Code(s): E87.70 - Fluid overload, unspecified Status: Acute Assessment and Plan: * as evidence of CXR and exam * on IV bumex * further fluid removal/ultrafiltration with dialysis (3) Essential hypertension: Code(s): I10 - Essential (primary) hypertension Status: Chronic Assessment and Plan: * reasonable control at this time * follow trend of hemodynamics (4) Chronic diastolic CHF (congestive heart failure): Code(s): I50.32 - Chronic diastolic (congestive) heart failure Status: Acute Assessment and Plan: * seems compensated * current volume status more related to kidney dysfunction * IV diuretics * further fluid removal with dialysis (5) Anemia: Code(s): D64.9 - Anemia, unspecified Status: Acute Assessment and Plan: * due to ESRD * anemia studies with iron deficiency * Epogen and venofer with HD * follow trend of H/H (6) Diabetes: Code(s): E11.9 - Type 2 diabetes mellitus without complications Status: Chronic Assessment and Plan: * follow glucose readings (although last A1c at goal if not better) Will continue to follow. Subjective Date/time seen: 05/20/22 11:00 S/P tunneled HD catheter placement yesterday and first dialysis treatment -- tolerated both procedure reasonably well; tolerating dialysis treatment omid leong (seen on HD treatment at 10:50AM); unfortunatley, HD catheter still with poor blood flows (only able to achieve 200cc/min) at the time of my visit; at bedside. Exam Narrative: General: Elderly female in NAD Heart: normal S1 and S2; no rub Lungs: decreased at bases Abdomen: soft, nontender, nondistended, positive bowel sounds Extremities: no cyanosis or clubbing; 2+ edema Skin: warm and intact Objective Data Vital Signs Vital Signs: Vital Signs Temp Pulse Resp BP Pulse Ox O2 Del Method O2 Flow Rate 05/20/22 11:00 56 L 159/63 H 05/20/22 10:45 57 L 144/58 H 05/20/22 10:30 59 L 171/66 H 05/20/22 10:28 59 L 158/65 H 05/20/22 10:19 36.8 C 62 20 155/52 H 05/20/22 12:08 36.7 C 56 L 20 157/54 H 94 05/20/22 08:00 62 165/47 H 94 05/20/22 08:00 Room Air 05/20/22 08:23 36.6 C 56 L 18 167/39 H 95 05/20/22 04:23 36.3 C L 55 L 16 168/40 H 96 05/19/22 20:00 59 L 05/20/22 00:00 58 L 05/20/22 04:00 54 L 05/20/22 00:00 36.4 C L 61 16 144/32 H 97 05/19/22 20:00 97 Nasal Cannula 1 05/19/22 21:47 61 05/19/22 20:23 36.8 C 61 18 166/38 H 98 05/19/22 17:42 36.8 C 58 L 20 160/65 H 05/19/22 17:40 58 L 160/66 H 1
--- NOTE | 2022-05-20 11:00 | PM.PNNEP ---
Progress Note: A&P Assessment and Plan (1) End stage renal disease: Code(s): N18.6 - End stage renal disease Status: Chronic Assessment and Plan: due to progression of her known disease from diabetes/hypertension s/p HD catheter placement HD today and likely again tomorrow fluid removal, clearance, and electrolytes control as tolerated transition to peritoneal dialysis as an outpatient will need outpatient hemodialysis arranged Surgery informed of poor blood flows with HD catheter -- may need repositioning... (2) Volume overload: Code(s): E87.70 - Fluid overload, unspecified Status: Acute Assessment and Plan: as evidence of CXR and exam on IV bumex further fluid removal/ultrafiltration with dialysis (3) Essential hypertension: Code(s): I10 - Essential (primary) hypertension Status: Chronic Assessment and Plan: reasonable control at this time follow trend of hemodynamics (4) Chronic diastolic CHF (congestive heart failure): Code(s): I50.32 - Chronic diastolic (congestive) heart failure Status: Acute Assessment and Plan: seems compensated current volume status more related to kidney dysfunction IV diuretics further fluid removal with dialysis (5) Anemia: Code(s): D64.9 - Anemia, unspecified Status: Acute Assessment and Plan: due to ESRD anemia studies with iron deficiency Epogen and venofer with HD follow trend of H/H (6) Diabetes: Code(s): E11.9 - Type 2 diabetes mellitus without complications Status: Chronic Assessment and Plan: follow glucose readings (although last A1c at goal if not better) Will continue to follow. Subjective Date/time seen: 05/20/22 11:00 S/P tunneled HD catheter placement yesterday and first dialysis treatment -- tolerated both procedure reasonably well; tolerating dialysis treatment currently (seen on HD treatment at 10:50AM); unfortunatley, HD catheter still with poor blood flows (only able to achieve 200cc/min) at the time of my visit; at bedside. Exam Narrative: General: Elderly female in NAD Heart: normal S1 and S2; no rub Lungs: decreased at bases Abdomen: soft, nontender, nondistended, positive bowel sounds Extremities: no cyanosis or clubbing; 2+ edema Skin: warm and intact Objective Data Vital Signs Vital Signs: Vital Signs Temp Pulse Resp BP Pulse Ox O2 Del Method O2 Flow Rate 05/20/22 11:00 56 L 159/63 H 05/20/22 10:45 57 L 144/58 H 05/20/22 10:30 59 L 171/66 H 05/20/22 10:28 59 L 158/65 H 05/20/22 10:19 36.8 C 62 20 155/52 H 05/20/22 12:08 36.7 C 56 L 20 157/54 H 94 05/20/22 08:00 62 165/47 H 94 05/20/22 08:00 Room Air 05/20/22 08:23 36.6 C 56 L 18 167/39 H 95 05/20/22 04:23 36.3 C L 55 L 16 168/40 H 96 05/19/22 20:00 59 L 05/20/22 00:00 58 L 05/20/22 04:00 54 L 05/20/22 00:00 36.4 C L 61 16 144/32 H 97 05/19/22 20:00 97 Nasal Cannula 1 05/19/22 21:47 61 05/19/22 20:23 36.8 C 61 18 166/38 H 98 05/19/22 17:42 36.8 C 58 L 20 160/65 H 05/19/22 17:40 58 L 160/66 H 05/19/22 17:15 59 L 157/63 H 05/19/22 17:00 56 L 155/62 H 05/19/22 16:45 55 L 151/61 H 05/19/22 16:30 53 L 139/60 05/19/22 16:15 54 L 134/59 L 05/19/22 16:00 55 L 05/19/22 16:30 36.6 C 55 L 18 139/60 98 05/19/22 15:30 36.6 C 55 L 18 145/60 H 96 05/19/22 15:00 36.6 C 53 L 18 156/69 H 96 05/19/22 14:45 36.4 C L 55 L 16 148/42 H 88 L 05/19/22 16:00 53 L 144/59 H 05/19/22 15:45 55 L 129/59 L 05/19/22 15:30 54 L 145/60 H 05/19/22 15:15 49 L 144/62 H 05/19/22 15:09 50 L 143/59 H 05/19/22 14:50 2 05/19/22 14:54 36.7 C 53 L 16 151/67 H 05/19/22 14:27 52
[2022-05-20 11:47] LABS: Glucose Point of Care 131 mg/dl (65-105)
--- NOTE | 2022-05-20 13:30 | PC.NURSE ---
Back from dialysis via bed. at bedside.
[2022-05-20] MEDS: carvediloL 12.5 MG TABLET PO ×2 (13:58→20:37)
[2022-05-20] MEDS: hydrALAZINE HCL 50 MG TABLET PO ×2 (13:58→18:42)
[2022-05-20] MEDS: BENZOCAINE/MENTHOL (*BKC) 18 EA LOZENGE 1 LOZENGE PO (13:58)
[2022-05-20] MEDS: MAGNESIUM OXIDE 400 MG TABLET PO ×2 (13:58→18:42)
[2022-05-20] MEDS: amLODIPine BESYLATE 5 MG TABLET 10 MG PO (13:58)
[2022-05-20] MEDS: ISOSORBIDE MONONITRATE 60 MG TAB.ER.24H PO (13:59)
--- NOTE | 2022-05-20 14:25 | P.PNAN_ITS ---
Anes - Prog Note Post-Op Date/Time: 05/20/22 14:25 Vital Signs: Last Vital Signs Temp 36.6 C 05/20/22 13:33 Pulse 66 05/20/22 13:58 Resp 20 05/20/22 13:33 BP 163/53 H 05/20/22 13:33 Pulse Ox 94 05/20/22 12:08 O2 Del Method Room Air 05/20/22 08:00 O2 Flow Rate 1 05/19/22 20:00 Pain Score (VAS): 4-just received pain meds and reports it is helping I/O: Intake & Output 05/19/22 05/20/22 05/20/22 23:59 07:59 15:59 Intake Total 620 250 240 Output Total 1500 2000 Balance -880 250 -1760 Laboratory Tests 05/20/22 06:16 05/20/22 06:16 05/19/22 05/19/22 05/20/22 17:24 21:46 06:16 WBC 7.8 RBC 2.64 L Hgb 7.5 L Hct 24.7 L MCV 93.6 MCH 28.4 MCHC 30.4 L RDW 16.5 H Plt Count 127 L MPV 9.2 Immature Gran % (Auto) 0.5 Neut % (Auto) 66.3 Lymph % (Auto) 12.2 L [place] % (Auto) 10.2 H Eos % (Auto) 10.0 H Baso % (Auto) 0.8 Lymph # (Auto) 0.95 [place] # (Auto) 0.8 H Eos # (Auto) 0.8 H Baso # (Auto) 0.1 Abs Immat Gran (auto) 0.04 H Absolute Neuts (auto) 5.2 Absolute Nucleated RBC 0.0 Nucleated RBC % 0.0 Sodium Potassium Chloride Carbon Dioxide Anion Gap BUN Creatinine Estim Creat Clear Calc Estimated GFR Glucose POC Capillary Glucose 110 H 94 Calcium Total Bilirubin AST ALT Alkaline Phosphatase Total Protein Albumin 05/20/22 05/20/22 05/20/22 06:16 07:43 11:41 WBC RBC Hgb Hct MCV MCH MCHC RDW Plt Count MPV Immature Gran % (Auto) Neut % (Auto) Lymph % (Auto) [place] % (Auto) Eos % (Auto) Baso % (Auto) Lymph # (Auto) [place] # (Auto) Eos # (Auto) Baso # (Auto) Abs Immat Gran (auto) Absolute Neuts (auto) Absolute Nucleated RBC Nucleated RBC % Sodium 141 Potassium 3.9 Chloride 104 Carbon Dioxide 27 Anion Gap 10 BUN 32 H D Creatinine 2.90 H Estim Creat Clear Calc Not Reportable Estimated GFR 16 L Glucose 105 POC Capillary Glucose 118 H 131 H Calcium 7.5 L Total Bilirubin 0.5 AST 19 ALT 6 Alkaline Phosphatase 113 Total Protein 6.0 L Albumin 3.1 L Patient Feedback: Patient satisfied with anesthetic care.
[2022-05-20] MEDS: BUMETANIDE INJ 1 MG/4 ML VIAL IV PUSH (16:46)
--- NOTE | 2022-05-20 16:57 | PM.PNGS ---
Progress Note: A&P Assessment and Plan (1) End stage renal disease: Code(s): N18.6 - End stage renal disease Status: Chronic Assessment and Plan: Postop day 1 status post placement of tunneled dialysis catheter. Having some problems with flow on the catheter while on hemodialysis. This improves with some positioning. Will have dialysis nurse change the dressing in view of the dried blood and to be sure there was not tension pulling down on the catheter as this may be leading to increase kinking. Will continue to monitor. If necessary may be able to try to return to surgery for repositioning to allow better flow. Also mentioned to the nurse that I put an extra suture right at the skin opening to try to prevent migration of the cuff externally because I was not sure that I had much space between the side of the cuff and the external opening. Will continue to follow with you while inpatient. Please continue to hold Plavix in case further surgery is needed. Okay to resume prophylactic subcu heparin which we can hold for 8 hours and return surgery if needed. Okay to continue baby aspirin once a day if needed. Please hold Allopurinol for 2 weeks unless patient develops a episode of gout. . Subjective Subjective Date/Time Seen: 05/20/22 11:57 Post Op day: 1 ( Not having much pain) Patient reports: other ( patient seen while on dialysis) Interval history: Right neck is a little stiff but otherwise she is feels okay. Review of Systems Constitutional: Constitutional: Reports as per HPI, Denies chills and Denies fever(s) Cardiovascular: Cardiovascular: Denies chest pain Respiratory: Respiratory: Reports no additional respiratory complaints Gastrointestinal: Gastrointestinal: Reports as per HPI and Denies bloating Musculoskeletal: Musculoskeletal: Reports no additional musculoskeletal complaints Psychiatric: Psychiatric: Denies anxiety Exam Narrative: Careful examination the right neck reveals no drainage from the wounds. There is some swelling and bruising present. The exit site dressing is stained with dried blood. ( discussed with dialysis nurse and he will change the dressing at the end of dialysis and also be sure that there was not tension pulling down on the exit site . If so he will re-dress with no tension. Exit site okay under dressing. Catheter functioning but not at full capacity. With patient's head turned up into the left and was some posterior compression on the skin posterior to her most lateral incision there is better flow. Hopefully with a change of dressing and less tension on the exit site perhaps better flow will be obtained. Also with decreased swelling in the area of the neck this may improve. Objective Data Vital Signs Vital Signs: Vital Signs - 24 hr 05/19/22 17:00 05/19/22 17:15 05/19/22 17:40 Temperature Pulse Rate 56 L 59 L 58 L Respiratory Rate Blood Pressure 155/62 H 157/63 H 160/66 H Pulse Oximetry Oxygen Delivery Oxygen Flow Rate 05/19/22 17:42 05/19/22 20:23 05/19/22 21:47 Temperature 36.8 C 36.8 C Pulse Rate 58 L 61 61 Respiratory Rate 20 18 Blood Pressure 160/65 H 166/38 H Pulse Oximetry 98 Oxygen Delivery Oxygen Flow Rate 05/19/22 20:00 05/20/22 00:00 05/20/22 04:00 Temperature 36.4 C L Pulse Rate 61 54 L Respiratory Rate 16 Blood Pressure 144/32 H Pulse Oximetry 97 97 Oxygen Delivery Nasal Cannula Oxygen Flow Rate 1 05/20/22 00:00 05/19/22 20:00 05/20/22 04:23 Temperature 36.3 C L Pulse Rate 58 L 59 L 55 L Respiratory Rate 16 Blood Pressure 168/40 H Pulse Oximetry 96 Oxygen Delivery Oxygen Flow Rate 05/20/22 08:23 05/20/22 08:00 05/20/22 08:00 Temperature 36.6 C Pulse Rate 56 L 62 Respiratory Rate 18 Blood Pressure 167/39 H 165/47 H Pulse Oximetry 95 94 Oxygen Delivery Room Air Oxygen Flow Rate 05/20/22 12:08 05/20/22 10:19 05/20/22 10:28 [place]
[2022-05-20 17:02] LABS: Glucose Point of Care 110 mg/dl (65-105)
[2022-05-20] MEDS: guaiFENesin/DEXTROMETHORPHAN 10 ML UDC 5 ML PO (18:45)
[2022-05-20] MEDS: SENNA/DOCUSATE SODIUM TABLET 2 TAB PO (20:36)
[2022-05-20] MEDS: ASPIRIN 81 MG CHEWABLE TABLET PO (20:37)
[2022-05-20] MEDS: ATORVASTATIN 40 MG TABLET PO (20:37)
[2022-05-20 21:52] LABS: Glucose Point of Care 101 mg/dl (65-105)
[2022-05-21] VITALS (11 sets, daily range): BP systolic 150–164; BP diastolic 33–43; PULSE 56–76; RESP 18–20; TEMP 36.4–36.8; O2SAT 94–96
[2022-05-21 06:37] LABS: Basophils Absolute Auto 0.1 K/mm3 (0.0-0.1); Basophils Percent Auto 0.7 % (0.2-1.2); Eosinophils Absolute Auto 0.8 K/mm3 (0-0.3); Hemoglobin 7.5 g/dL (12.0-15.0); Immature Granulocyte Absolute 0.03 K/mm3 (0.00-0.031); Immature Granulocyte Percent A 0.4 % (0-0.5); Lymphocytes Absolute Auto 1.26 K/mm3 (0.9-3.2); Lymphocytes Percent Auto 16.9 % (18.3-44.2); Mean Corpuscular Hemoglobin 28.7 pg (26-34); Mean Corpuscular Volume 95.8 fl (80-100); Mean Platelet Volume 9.6 fl (7.4-10.4); Monocytes Absolute Auto 0.9 K/mm3 (0.1-0.6); Monocytes Percent Auto 11.9 % (2.6-8.5); Neutrophils Absolute Auto 4.4 K/mm3 (1.3-6.7); Neutrophils Percent Auto 59.1 % (45.5-73.1); Platelet Count Result 141 k/mm3 (150-375); Red Blood Count 2.61 M/mm3 (4.2-5.4); Red Cell Distribution Width 16.4 % (11.5-14.5); White Blood Count 7.5 K/mm3 (4.5-10.0)
[2022-05-21 06:42] LABS: INR 1.2; Prothrombin Time 14.9 Seconds (11.1-14.7)
[2022-05-21 06:43] LABS: Partial Thromboplastin Time 32.9 SECONDS (22.3-36.8)
[2022-05-21 06:52] LABS: Alanine Aminotransferase 7 U/L (6-35); Albumin Level 3.1 g/dL (3.5-5.1); Alkaline Phosphatase 123 U/L (38-126); Anion Gap 8 mmol/L (8-16); Aspartate Amino Transferase 20 U/L (14-36); Bilirubin,Total 0.6 mg/dL (0.2-1.3); Blood Urea Nitrogen 18 mg/dL (7-17); Calcium 7.9 mg/dL (8.4-10.2); Carbon Dioxide 30 mmol/L (22-30); Chloride 100 mmol/L (98-107); Estimated Glomerular Filt Rate 18; Glucose 93 mg/dL (65-110); Potassium 3.6 mmol/L (3.4-5.0); Sodium 138 mmol/L (137-145)
[2022-05-21 08:05] LABS: Glucose Point of Care 96 mg/dl (65-105)
[2022-05-21] MEDS: BENZONATATE 100 MG CAPSULE 200 MG PO ×3 (08:56→17:32)
[2022-05-21] MEDS: PANTOPRAZOLE 40 MG TABLET PO (08:57)
[2022-05-21] MEDS: guaiFENesin/DEXTROMETHORPHAN 10 ML UDC 5 ML PO ×2 (08:59→12:44)
[2022-05-21] MEDS: carvediloL 12.5 MG TABLET PO ×2 (09:42→20:54)
[2022-05-21] MEDS: hydrALAZINE HCL 50 MG TABLET PO ×3 (09:42→17:32)
[2022-05-21] MEDS: BUMETANIDE INJ 1 MG/4 ML VIAL IV PUSH ×2 (09:43→17:32)
[2022-05-21] MEDS: MAGNESIUM OXIDE 400 MG TABLET PO ×2 (09:44→17:33)
[2022-05-21 12:16] LABS: Glucose Point of Care 143 mg/dl (65-105)
[2022-05-21] MEDS: amLODIPine BESYLATE 5 MG TABLET 10 MG PO (12:44)
[2022-05-21] MEDS: ISOSORBIDE MONONITRATE 60 MG TAB.ER.24H PO (12:44)
--- NOTE | 2022-05-21 14:01 | PM.PNNEP ---
Progress Note: A&P Assessment and Plan (1) End stage renal disease: Code(s): N18.6 - End stage renal disease Status: Chronic Assessment and Plan: due to progression of her known disease from diabetes/hypertension s/p HD catheter placement plan HD tomorrow since outpatient schedule will be T/T/S fluid removal, clearance, and electrolytes control as tolerated transition to peritoneal dialysis as an outpatient Surgery informed of continued poor blood flows with HD catheter -- may need repositioning... (2) Volume overload: Code(s): E87.70 - Fluid overload, unspecified Status: Acute Assessment and Plan: as evidence of CXR and exam on IV bumex - will switch to oral dosing tomorrow further fluid removal/ultrafiltration with dialysis (3) Essential hypertension: Code(s): I10 - Essential (primary) hypertension Status: Chronic Assessment and Plan: reasonable control at this time follow trend of hemodynamics (4) Chronic diastolic CHF (congestive heart failure): Code(s): I50.32 - Chronic diastolic (congestive) heart failure Status: Acute Assessment and Plan: seems compensated current volume status more related to kidney dysfunction on diuretics further fluid removal with dialysis (5) Anemia: Code(s): D64.9 - Anemia, unspecified Status: Acute Assessment and Plan: due to ESRD anemia studies with iron deficiency Epogen and venofer with HD follow trend of H/H (6) Diabetes: Code(s): E11.9 - Type 2 diabetes mellitus without complications Status: Chronic Assessment and Plan: follow glucose readings (although last A1c at goal if not better) Will continue to follow. Subjective Date/time seen: 05/21/22 14:01 Tolerated hemodialysis treatment yesterday although poor blood flows with HD catheter noted again (only able to acheive 200cc/min blood flow); further manipulation with done at bedside yesterday by Dr. Hunter; still feels weak but in no apparent distress. Exam Narrative: General: Elderly female in NAD Heart: normal S1 and S2; no rub Lungs: decreased at bases Abdomen: soft, nontender, nondistended, positive bowel sounds Extremities: no cyanosis or clubbing; 1 - 2+ edema Skin: no rash Objective Data Vital Signs Vital Signs: Vital Signs Temp Pulse Resp BP Pulse Ox O2 Del Method 05/21/22 08:55 Room Air 05/21/22 08:00 64 05/21/22 09:42 64 05/20/22 20:00 57 L 05/21/22 00:00 56 L 05/21/22 04:00 57 L 05/21/22 03:51 36.4 C L 59 L 20 150/43 H 96 05/21/22 03:07 CPAP 05/20/22 20:00 Room Air 05/20/22 20:37 65 05/20/22 19:59 36.4 C 72 20 140/40 L 91 05/20/22 16:00 58 L 05/20/22 16:19 36.2 C L 72 20 150/35 H 93 Intake/Output Intake/Output: Intake & Output 05/18/22 05/19/22 05/20/22 05/21/22 23:59 23:59 23:59 23:59 Intake Total 1440 245 8014 220 Output Total 1650 2400 1999 [facility] -[phone] [phone] Meds/Results Medications: Active Medications Generic Name Dose Route Start Last Admin Trade Name Freq PRN Reason Stop Dose Admin Allopurinol 100 mg 05/17/22 09:00 05/19/22 14:46 Allopurinol 100 Mg Tablet PO 100 mg DAILY MACARIO Administration Amlodipine Besylate 10 mg 05/17/22 09:00 05/21/22 12:44 Amlodipine Besylate 5 Mg Tablet PO 10 mg DAILY MACARIO Administration Aspirin 81 mg 05/17/22 21:00 05/20/22 20:37 Aspirin 81 Mg Chewable Tablet PO 06/16/22 20:59 81 mg HS MACARIO Administration Atorvastatin Calcium 40 mg 05/17/22 21:00 05/20/22 20:37 Atorvastatin 40 Mg Tablet PO 40 mg HS MACARIO Administration Benzocaine 1 lozenge 05/17/22 22:02 05/20/22 13:58 Benzocaine/Menthol (*Bkc) 18 Ea Lozenge PO 1 lozenge PRN PRN Administration Sore Throat Benzonatate 200 mg 05/21/22 09:00 05/21/22 12:44 Benzonatate 100
--- NOTE | 2022-05-21 14:01 | P.PNNP_ITS ---
Progress Note: A&P Assessment and Plan (1) End stage renal disease: Code(s): N18.6 - End stage renal disease Status: Chronic Assessment and Plan: * due to progression of her known disease from diabetes/hypertension * s/p HD catheter placement * plan HD tomorrow since outpatient schedule will be T/T/S * fluid removal, clearance, and electrolytes control as tolerated * transition to peritoneal dialysis as an outpatient * Surgery informed of continued poor blood flows with HD catheter -- may need repositioning... (2) Volume overload: Code(s): E87.70 - Fluid overload, unspecified Status: Acute Assessment and Plan: * as evidence of CXR and exam * on IV bumex - will switch to oral dosing tomorrow * further fluid removal/ultrafiltration with dialysis (3) Essential hypertension: Code(s): I10 - Essential (primary) hypertension Status: Chronic Assessment and Plan: * reasonable control at this time * follow trend of hemodynamics (4) Chronic diastolic CHF (congestive heart failure): Code(s): I50.32 - Chronic diastolic (congestive) heart failure Status: Acute Assessment and Plan: * seems compensated * current volume status more related to kidney dysfunction * on diuretics * further fluid removal with dialysis (5) Anemia: Code(s): D64.9 - Anemia, unspecified Status: Acute Assessment and Plan: * due to ESRD * anemia studies with iron deficiency * Epogen and venofer with HD * follow trend of H/H (6) Diabetes: Code(s): E11.9 - Type 2 diabetes mellitus without complications Status: Chronic Assessment and Plan: * follow glucose readings (although last A1c at goal if not better) Will continue to follow. Subjective Date/time seen: 05/21/22 14:01 Tolerated hemodialysis treatment yesterday although poor blood flows with HD catheter noted again (only able to acheive 200cc/min blood flow); further manipulation with done at bedside yesterday by Dr. Hunter; still feels weak but in no apparent distress. Exam Narrative: General: Elderly female in NAD Heart: normal S1 and S2; no rub Lungs: decreased at bases Abdomen: soft, nontender, nondistended, positive bowel sounds Extremities: no cyanosis or clubbing; 1 - 2+ edema Skin: no rash Objective Data Vital Signs Vital Signs: Vital Signs Temp Pulse Resp BP Pulse Ox O2 Del Method 05/21/22 08:55 Room Air 05/21/22 08:00 64 05/21/22 09:42 64 05/20/22 20:00 57 L 05/21/22 00:00 56 L 05/21/22 04:00 57 L 05/21/22 03:51 36.4 C L 59 L 20 150/43 H 96 05/21/22 03:07 CPAP 05/20/22 20:00 Room Air 05/20/22 20:37 65 05/20/22 19:59 36.4 C 72 20 140/40 L 91 05/20/22 16:00 58 L 05/20/22 16:19 36.2 C L 72 20 150/35 H 93 Intake/Output Intake/Output: Intake & Output 05/18/22 05/19/22 05/20/22 05/21/22 23:59 23:59 23:59 23:59 Intake Total 6571 017 8020 220 Output Total 1650 2400 1999 [facility] 95 [phone] Meds/Results Medications: Active Medications Generic Name Dose Route Sta
--- NOTE | 2022-05-21 14:59 | PM.IMPN ---
Progress Note: A&P Assessment and Plan (1) Acute kidney injury superimposed on chronic kidney disease: Code(s): N17.9 - Acute kidney failure, unspecified; N18.9 - Chronic kidney disease, unspecified Status: Acute Assessment and Plan: Tunnel catheter placed 05/19/2022 and started on hemodialysis Nephrology following Plan to transition to peritoneal dialysis an outpatient basis Need outpatient hemodialysis arranged (2) Acute hyperkalemia: Code(s): E87.5 - Hyperkalemia Status: Acute Assessment and Plan: Managed by Nephrology (3) Essential hypertension: Code(s): I10 - Essential (primary) hypertension Status: Chronic Assessment and Plan: Stable, continue home meds (4) Chronic diastolic CHF (congestive heart failure): Code(s): I50.32 - Chronic diastolic (congestive) heart failure Status: Acute Assessment and Plan: Stable, suspect volume overload is secondary to kidney failure at this time Echo 10/25: EF 65-70% grade 2 diastolic dysfunction hypokinetic WM and mild to moderate MR On Zack hydralazine/Imdur (5) Hx of CABG: Code(s): Z95.1 - Presence of aortocoronary bypass graft Status: Acute Assessment and Plan: Continue home meds, on aspirin and Plavix Plavix currently on hold (6) Obstructive sleep apnea: Code(s): G47.33 - Obstructive sleep apnea (adult) (pediatric) Status: Acute Assessment and Plan: Consult respiratory therapy for nocturnal CPAP (7) Diabetes: Code(s): E11.9 - Type 2 diabetes mellitus without complications Status: Chronic Assessment and Plan: A1c was 5.4, no need for Accu-Cheks or sliding scale insulin, will monitor glucose daily on BMPs (8) GERD (gastroesophageal reflux disease): Code(s): K21.9 - Gastro-esophageal reflux disease without esophagitis Status: Acute Assessment and Plan: Continue PPI Plan dialysis catheter kinking general surgery on board for possible need for replacement DVT prophylaxis with heparin plavix held for 2 weeks may need to have her catheter replaced GI prophylaxis with PPI Code status full code Subjective Date/time seen: 05/21/22 14:59 Interval history: Feeling much better. She had a dialysis yesterday. No new complaints. Leg swelling has improved. Denies any shortness of breath or chest pain. Review of Systems Review of Systems: All systems reviewed & are unremarkable except as noted in HPI and below Exam Narrative: General: No acute distress, alert and oriented per baseline HEENT: Atraumatic, normocephalic, mucous membranes moist CV: Regular rate and rhythm, S1, S2 Lungs: Clear to auscultation bilaterally, no rales or crackles noted, no wheezes, good air entry Right chest dialysis catheter in place Abdomen: Soft, nontender, nondistended Extremities: Normal to inspection Skin: No rashes noted, no lesions or wounds seen Psych: Euthymic, normal affect Objective Data Vital Signs Vital Signs: Vital Signs - 24 hr 05/20/22 16:19 05/20/22 16:00 05/20/22 19:59 Temperature 97.1 F L 97.6 F Pulse Rate 72 58 L 72 Respiratory Rate 20 20 Blood Pressure 150/35 H 140/40 L Pulse Oximetry 93 91 Oxygen Delivery 05/20/22 20:37 05/20/22 20:00 05/21/22 03:07 Temperature Pulse Rate 65 Respiratory Rate Blood Pressure Pulse Oximetry Oxygen Delivery Room Air CPAP 05/21/22 03:51 05/21/22 04:00 05/21/22 00:00 Temperature 97.5 F L Pulse Rate 59 L 57 L 56 L Respiratory Rate 20 Blood Pressure 150/43 H Pulse Oximetry 96 Oxygen Delivery 05/20/22 20:00 05/21/22 09:42 05/21/22 08:00 Temperature Pulse Rate 57 L 64 64 Respiratory Rate Blood Pressure Pulse Oximetry Oxygen Delivery 05/21/22 08:55 Temperature Pulse Rate Respiratory Rate Blood Pressure Pulse Oximetry Oxygen Delivery Room Air Intake/Output Intake/Output: Intake & Output
[2022-05-21] MEDS: LOPERAMIDE HCL 2 MG CAPSULE PO (16:05)
[2022-05-21 16:49] LABS: Glucose Point of Care 107 mg/dl (65-105)
[2022-05-21 18:56] LABS: Hepatitis B Core Ab Total Nonreactive (Nonreactive)
[2022-05-21] MEDS: ATORVASTATIN 40 MG TABLET PO (20:54)
[2022-05-21] MEDS: ASPIRIN 81 MG CHEWABLE TABLET PO (20:54)
[2022-05-21 21:14] LABS: Glucose Point of Care 125 mg/dl (65-105)
[2022-05-21] MEDS: WATER FOR IRRIGATION, STERILE 1,000 ML BOTTLE 1000 ML (22:11)
[2022-05-22] VITALS (21 sets, daily range): BP systolic 113–170; BP diastolic 38–98; PULSE 50–67; RESP 16–20; TEMP 36–37; O2SAT 93–96
[2022-05-22 07:00] LABS: Basophils Absolute Auto 0.1 K/mm3 (0.0-0.1); Basophils Percent Auto 0.7 % (0.2-1.2); Eosinophils Absolute Auto 0.7 K/mm3 (0-0.3); Eosinophils Percent Auto 9.2 % (0-4.4); Hematocrit 24.7 % (37.0-47.0); Hemoglobin 7.4 g/dL (12.0-15.0); Immature Granulocyte Absolute 0.04 K/mm3 (0.00-0.031); Immature Granulocyte Percent A 0.6 % (0-0.5); Lymphocytes Percent Auto 17.9 % (18.3-44.2); Mean Corpuscular Hemoglobin 28.6 pg (26-34); Mean Corpuscular Volume 95.4 fl (80-100); Mean Platelet Volume 9.6 fl (7.4-10.4); Monocytes Absolute Auto 0.9 K/mm3 (0.1-0.6); Monocytes Percent Auto 12.8 % (2.6-8.5); Neutrophils Absolute Auto 4.3 K/mm3 (1.3-6.7); Neutrophils Percent Auto 58.8 % (45.5-73.1); Platelet Count Result 131 k/mm3 (150-375); Red Blood Count 2.59 M/mm3 (4.2-5.4); Red Cell Distribution Width 16.7 % (11.5-14.5); White Blood Count 7.3 K/mm3 (4.5-10.0)
[2022-05-22 07:10] LABS: Alanine Aminotransferase 9 U/L (6-35); Alkaline Phosphatase 113 U/L (38-126); Anion Gap 6 mmol/L (8-16); Aspartate Amino Transferase 25 U/L (14-36); Bilirubin,Total 0.5 mg/dL (0.2-1.3); Blood Urea Nitrogen 24 mg/dL (7-17); Calcium 7.9 mg/dL (8.4-10.2); Carbon Dioxide 30 mmol/L (22-30); Chloride 100 mmol/L (98-107); Estimated Glomerular Filt Rate 16; Glucose 111 mg/dL (65-110); Magnesium 2.4 mg/dL (1.6-2.3); Potassium 3.5 mmol/L (3.4-5.0); Sodium 136 mmol/L (137-145)
[2022-05-22 07:57] LABS: Glucose Point of Care 119 mg/dl (65-105)
--- NOTE | 2022-05-22 10:53 | P.PNNP_ITS ---
Progress Note: A&P Assessment and Plan (1) End stage renal disease: Code(s): N18.6 - End stage renal disease Status: Chronic Assessment and Plan: * due to progression of her known disease from diabetes/hypertension * s/p HD catheter placement * HD today since outpatient schedule will be T/T/S * fluid removal, clearance, and electrolytes control as tolerated * transition to peritoneal dialysis as an outpatient * Surgery informed of continued poor blood flows with HD catheter -- may need repositioning... (2) Volume overload: Code(s): E87.70 - Fluid overload, unspecified Status: Acute Assessment and Plan: * as evidence of CXR and exam * on oral bumex since still has residual kidney function * further fluid removal/ultrafiltration with dialysis (3) Essential hypertension: Code(s): I10 - Essential (primary) hypertension Status: Chronic Assessment and Plan: * reasonable control at this time * follow trend of hemodynamics (4) Chronic diastolic CHF (congestive heart failure): Code(s): I50.32 - Chronic diastolic (congestive) heart failure Status: Acute Assessment and Plan: * seems compensated * current volume status more related to kidney dysfunction * on diuretics * further fluid removal with dialysis (5) Anemia: Code(s): D64.9 - Anemia, unspecified Status: Acute Assessment and Plan: * due to ESRD * anemia studies with iron deficiency * Epogen and venofer with HD * follow trend of H/H (6) Diabetes: Code(s): E11.9 - Type 2 diabetes mellitus without complications Status: Chronic Assessment and Plan: * follow glucose readings (although last A1c at goal if not better) Will continue to follow. Subjective Date/time seen: 05/22/22 10:53 Tolerating dialysis treatment at the time of my visit (seen on HD at 10:45AM); no apparent issues or complaints voiced; overall, she states she feels much better (improved breathing and less LE edema); once again, poor blood flows note d with HD catheter (only able to acheieve 200cc/min) despite interventions to date to get better flows; no events overnight or earlier this morning. Exam Narrative: General: Elderly female in NAD Heart: normal S1 and S2; no rub Lungs: decreased at bases Abdomen: soft, nontender, nondistended, positive bowel sounds Extremities: no cyanosis or clubbing; 1+ edema Skin: no nodules Objective Data Vital Signs Vital Signs: Vital Signs Temp Pulse Resp BP Pulse Ox O2 Del Method 05/22/22 10:50 56 L 141/54 H 05/22/22 10:30 58 L 146/54 H 05/22/22 08:00 Room Air 05/22/22 10:10 59 L 140/57 L 05/22/22 09:50 59 L 113/45 L 05/22/22 09:15 36.9 C 64 16 158/50 H 05/22/22 09:27 64 160/53 H 05/22/22 04:00 50 L 05/22/22 00:00 56 L 05/21/22 20:00 61 05/22/22 06:00 36.4 C 52 L 20 154/40 H 96 05/21/22 20:00 Room Air 05/21/22 22:00 36.8 C 64 18 164/33 H 94 05/21/22 20:54 76 05/21/22 16:00 61 05/21/22 14:00 36.7 C 63 18 150/38 H 96 05/21/22 12:00 66 05/21/22 12:00 62 Intake/Output Intake/Output: Intake & Output
--- NOTE | 2022-05-22 10:53 | PM.PNNEP ---
Progress Note: A&P Assessment and Plan (1) End stage renal disease: Code(s): N18.6 - End stage renal disease Status: Chronic Assessment and Plan: due to progression of her known disease from diabetes/hypertension s/p HD catheter placement HD today since outpatient schedule will be T/T/S fluid removal, clearance, and electrolytes control as tolerated transition to peritoneal dialysis as an outpatient Surgery informed of continued poor blood flows with HD catheter -- may need repositioning... (2) Volume overload: Code(s): E87.70 - Fluid overload, unspecified Status: Acute Assessment and Plan: as evidence of CXR and exam on oral bumex since still has residual kidney function further fluid removal/ultrafiltration with dialysis (3) Essential hypertension: Code(s): I10 - Essential (primary) hypertension Status: Chronic Assessment and Plan: reasonable control at this time follow trend of hemodynamics (4) Chronic diastolic CHF (congestive heart failure): Code(s): I50.32 - Chronic diastolic (congestive) heart failure Status: Acute Assessment and Plan: seems compensated current volume status more related to kidney dysfunction on diuretics further fluid removal with dialysis (5) Anemia: Code(s): D64.9 - Anemia, unspecified Status: Acute Assessment and Plan: due to ESRD anemia studies with iron deficiency Epogen and venofer with HD follow trend of H/H (6) Diabetes: Code(s): E11.9 - Type 2 diabetes mellitus without complications Status: Chronic Assessment and Plan: follow glucose readings (although last A1c at goal if not better) Will continue to follow. Subjective Date/time seen: 05/22/22 10:53 Tolerating dialysis treatment at the time of my visit (seen on HD at 10:45AM); no apparent issues or complaints voiced; overall, she states she feels much better (improved breathing and less LE edema); once again, poor blood flows noted with HD catheter (only able to acheieve 200cc/min) despite interventions to date to get better flows; no events overnight or earlier this morning. Exam Narrative: General: Elderly female in NAD Heart: normal S1 and S2; no rub Lungs: decreased at bases Abdomen: soft, nontender, nondistended, positive bowel sounds Extremities: no cyanosis or clubbing; 1+ edema Skin: no nodules Objective Data Vital Signs Vital Signs: Vital Signs Temp Pulse Resp BP Pulse Ox O2 Del Method 05/22/22 10:50 56 L 141/54 H 05/22/22 10:30 58 L 146/54 H 05/22/22 08:00 Room Air 05/22/22 10:10 59 L 140/57 L 05/22/22 09:50 59 L 113/45 L 05/22/22 09:15 36.9 C 64 16 158/50 H 05/22/22 09:27 64 160/53 H 05/22/22 04:00 50 L 05/22/22 00:00 56 L 05/21/22 20:00 61 05/22/22 06:00 36.4 C 52 L 20 154/40 H 96 05/21/22 20:00 Room Air 05/21/22 22:00 36.8 C 64 18 164/33 H 94 05/21/22 20:54 76 05/21/22 16:00 61 05/21/22 14:00 36.7 C 63 18 150/38 H 96 05/21/22 12:00 66 05/21/22 12:00 62 Intake/Output Intake/Output: Intake & Output 05/19/22 05/20/22 05/21/22 05/22/22 23:59 23:59 23:59 23:59 Intake Total 670 1230 580 320 Output Total 2400 2000 200 Balance -1730 -770 580 120 Meds/Results Medications: Active Medications Generic Name Dose Route Start Last Admin Trade Name Herminia PRN Reason Stop Dose Admin Allopurinol 100 mg 05/17/22 09:00 05/19/22 14:46 Allopurinol 100 Mg Tablet PO 100 mg DAILY MACARIO Administration Amlodipine Besylate 10 mg 05/17/22 09:00 05/21/22 12:44 Amlodipine Besylate 5 Mg Tablet PO 10 mg DAILY MACARIO Administration Aspirin 81 mg 05/17/22 21:00 05/21/22 20:54 Aspirin 81 Mg Chewable Tablet PO 06/16/22 20:59 81 mg HS MACARIO Administration Atorvastatin Calcium 40 mg 05/17/22 21:00 1
[2022-05-22 11:32] LABS: Glucose Point of Care 157 mg/dl (65-105)
[2022-05-22] MEDS: PANTOPRAZOLE 40 MG TABLET PO (13:16)
[2022-05-22] MEDS: BUMETANIDE 1 MG TABLET 2 MG PO (13:16)
[2022-05-22] MEDS: carvediloL 12.5 MG TABLET PO ×2 (13:17→23:15)
[2022-05-22] MEDS: BENZONATATE 100 MG CAPSULE 200 MG PO ×2 (13:17→17:14)
[2022-05-22] MEDS: hydrALAZINE HCL 50 MG TABLET PO ×2 (13:18→17:14)
[2022-05-22] MEDS: amLODIPine BESYLATE 5 MG TABLET 10 MG PO (13:18)
[2022-05-22] MEDS: ISOSORBIDE MONONITRATE 60 MG TAB.ER.24H PO (13:18)
[2022-05-22] MEDS: MAGNESIUM OXIDE 400 MG TABLET PO ×2 (13:18→17:19)
--- NOTE | 2022-05-22 14:19 | WPDANESEPPF ---
Anes - Initial Pre Proc Eval Procedure: Operation Date: 05/19/22 12:30 Proposed Procedures p Insertion Of Tunneled Dialysis Catheter - Manohar Hunter MD Operation Date: 05/23/22 14:30 Proposed Procedures p Revision Of Tunneled Dialysis Catheter,Possible Replacement - Manohar Hunter MD Date/Time: 05/22/22 14:19 Surgeon: Adi Echavarria MD Pre Op Diagnosis: MASSIMO on CKD, hyperkalemia Patient Data Age: 76 Gender: F Height: 1.5 m Weight: 63.9 kg Last Vital Signs Temp 36.3 C L 05/22/22 13:51 Pulse 62 05/22/22 13:51 Resp 16 05/22/22 13:51 BP 170/38 H 05/22/22 13:51 Pulse Ox 93 05/22/22 13:51 O2 Del Method Room Air 05/22/22 08:00 O2 Flow Rate 1 05/19/22 20:00 Allergies Allergy/AdvReac Type Severity Reaction Status Date / Time gabapentin Allergy Unknown Unknown Verified 05/17/22 04:49 metronidazole [From Flagyl] Allergy Unknown Unknown Verified 05/17/22 04:49 Penicillins Allergy Unknown ITCHING Verified 04/27/22 00:17 tramadol Allergy Unknown HIVES Verified 04/27/22 00:17 hydrocodone AdvReac Mild ITCHING Verified 05/17/22 04:49 terbinafine AdvReac Mild MESSED UP Verified 05/17/22 04:49 BS AND BP triamterene AdvReac Mild ITCH Verified 05/17/22 04:49 carbamazepine AdvReac Unknown Unknown Verified 05/17/22 04:49 ciprofloxacin AdvReac Unknown Dizziness Verified 05/17/22 04:49 labetalol AdvReac Unknown Dizziness Verified 05/17/22 04:49 Sulfa (Sulfonamide AdvReac Unknown Unknown Verified 05/17/22 04:49 Antibiotics) Home Medications Medication Instructions Recorded Confirmed Type allopurinol 300 mg tablet 100 mg PO DAILY 08/31/21 05/17/22 History atorvastatin 40 mg tablet 40 mg PO HS 08/31/21 05/17/22 History carvedilol 25 mg tablet 12.5 mg PO BID 08/31/21 05/17/22 History hydralazine 100 mg tablet 50 mg PO TID 08/31/21 05/17/22 History clopidogrel 75 mg tablet 75 mg PO DAILY 01/03/22 05/17/22 History aspirin 81 mg capsule 81 mg PO HS 04/26/22 05/17/22 History isosorbide mononitrate 30 mg 60 mg PO DAILY 04/26/22 05/17/22 History tablet,extended release 24 hr magnesium oxide 400 mg PO BID 04/26/22 05/17/22 History nitroglycerin 0.4 mg sublingual 0.4 mg sublingual Q5MIN PRN Chest 04/26/22 05/17/22 History tablet Pain furosemide 40 mg tablet 20 mg PO DAILY #30 tabs 05/01/22 05/17/22 Rx amlodipine 10 mg tablet 10 mg PO DAILY 05/17/22 05/17/22 History glimepiride 4 mg tablet 4 mg PO DAILY 05/17/22 05/17/22 History pantoprazole 40 mg tablet,delayed 40 mg PO DAILY 05/17/22 05/17/22 History release Laboratory Tests 05/19/22 05/21/22 05/21/22 06:42 16:31 20:53 WBC RBC Hgb Hct MCV MCH MCHC RDW Plt Count MPV Immature Gran % (Auto) Neut % (Auto) Lymph % (Auto) [place] % (Auto) Eos % (Auto) Baso % (Auto) Lymph # (Auto) [place] # (Auto) Eos # (Auto) Baso # (Auto) Abs Immat Gran (auto) Absolute Neuts (auto) Absolute Nucleated RBC Nucleated RBC % Sodium Potassium Chloride Carbon Dioxide Anion Gap BUN Creatinine Estim Creat Clear Calc Estimated GFR Glucose POC Capillary Glucose 107 mg/dl H mg/dl 125 mg/dl H mg/dl (65-105) (65-105) Calcium Magnesium Total Bilirubin AST ALT Alkaline Phosphatase Total Protein Albumin Hep B Core Total Ab Nonreactive (Nonreactive) 05/22/22 05/22/22 05/22/22 06:48 06:48 07:41 WBC 7.3 K/mm3 K/mm3 (4.5-10.0) RBC 2.59 M/mm3 L M/mm3 (4.2-5.4) Hgb 7.4 g/dL L g/dL (12.0-15.0)
--- NOTE | 2022-05-22 14:38 | PM.PNGS ---
Progress Note: A&P Assessment and Plan (1) End stage renal disease: Code(s): N18.6 - End stage renal disease Status: Chronic Assessment and Plan: Postop day 3 status post placement of tunneled dialysis catheter. Having some problems with flow on the catheter while on hemodialysis. This improves with some positioning. If necessary may be able to try to return to surgery for repositioning to allow better flow. Also mentioned to the nurse that I put an extra suture right at the skin opening to try to prevent migration of the cuff externally because I was not sure that I had much space between the side of the cuff and the external opening. Will continue to follow with you while inpatient. --- Exit site dressing change done today and catheter pulled out 1 cm with massage of neck. Chest x-ray being checked. Hopefully with a change of dressing and Pulling the catheter out some at exit site perhaps better flow will be obtained. if chest x-ray looks better will contact Dr. Ybarra and will try dialysis again on Thursday and see if flows are better. If this is not true and still kinked have the patient scheduled for possible revision possible replacement of the tunneled dialysis catheter for Thursday. Please continue to hold Plavix in case further surgery is needed. Okay to resume prophylactic subcu heparin which we can hold for 8 hours and return surgery if needed. Okay to continue baby aspirin once a day if needed. Please hold Allopurinol for 2 weeks unless patient develops a episode of gout. . Subjective Subjective Date/Time Seen: 05/22/22 14:38 Patient reports: still having pain (Along tunneled tract on neck) and pain is less Interval history: patient had dialysis again today and there were still low flows despite changing the dressing in making sure there was not tension on the catheter and massaging patient's neck the last 2 days. Review of Systems Constitutional: Constitutional: Reports as per HPI, Denies chills and Denies fever(s) Cardiovascular: Cardiovascular: Denies chest pain Respiratory: Respiratory: Reports no additional respiratory complaints Gastrointestinal: Gastrointestinal: Reports as per HPI and Denies bloating Musculoskeletal: Musculoskeletal: Reports no additional musculoskeletal complaints Psychiatric: Psychiatric: Denies anxiety Exam Narrative: Catheter functioning but not at full capacity. With patient's head turned up and to the left and with some posterior compression on the skin posterior to her most lateral incision there is better flow. However, no significant improvement today with maneuvers. Therefore, I discussed the situation with Dr. Ybarra. He feels that since the patient will be dialyzing near [place] that this will be a problem and they will send her back. Dialysis is working but the flows are poor. Therefore, today I adjusted the catheter by removing the suture at its exit site and pulling it out 1 cm without having the cuff come out of the tunnel. I also massaged the curl of the catheter at the neck. We are obtaining a repeat chest x-ray to see if this has maneuvered it such that there was not a kink at its uppermost her prior to entering the internal jugular vein. Hopefully with a change of dressing and Pulling the catheter out some at exit site perhaps better flow will be obtained. if chest x-ray looks better will contact Dr. Ybarra and will try dialysis again on Thursday and see if flows are better. If this is not true and still kinked have the patient scheduled for possible revision possible replacement of the tunneled dialysis catheter for Thursday. Neck: Other: Examination prior to manipulating the catheter reveals bruising along the tract from tunneled dialysis catheter but incisions look good with surgical glue nicely sealing them and no drainage or erythema. Objective Data Vital Signs Vital Signs: Wanda
--- NOTE | 2022-05-22 16:25 | PM.IMPN ---
Progress Note: A&P Assessment and Plan (1) Acute kidney injury superimposed on chronic kidney disease: Code(s): N17.9 - Acute kidney failure, unspecified; N18.9 - Chronic kidney disease, unspecified Status: Acute Assessment and Plan: Tunnel catheter placed 05/19/2022 and started on hemodialysis Nephrology following Plan to transition to peritoneal dialysis an outpatient basis [facility] issues with flow via dialysis catheter general surgery on board for possible need to replace (2) Acute hyperkalemia: Code(s): E87.5 - Hyperkalemia Status: Acute Assessment and Plan: Managed by Nephrology (3) Essential hypertension: Code(s): I10 - Essential (primary) hypertension Status: Chronic Assessment and Plan: Stable, continue home meds (4) Chronic diastolic CHF (congestive heart failure): Code(s): I50.32 - Chronic diastolic (congestive) heart failure Status: Acute Assessment and Plan: Stable, suspect volume overload is secondary to kidney failure at this time Echo 10/25: EF 65-70% grade 2 diastolic dysfunction hypokinetic WM and mild to moderate MR On Zack hydralazine/Imdur (5) Hx of CABG: Code(s): Z95.1 - Presence of aortocoronary bypass graft Status: Acute Assessment and Plan: Continue home meds, on aspirin and Plavix Plavix currently on hold (6) Obstructive sleep apnea: Code(s): G47.33 - Obstructive sleep apnea (adult) (pediatric) Status: Acute Assessment and Plan: Consult respiratory therapy for nocturnal CPAP (7) Diabetes: Code(s): E11.9 - Type 2 diabetes mellitus without complications Status: Chronic Assessment and Plan: A1c was 5.4, no need for Accu-Cheks or sliding scale insulin, will monitor glucose daily on BMPs (8) GERD (gastroesophageal reflux disease): Code(s): K21.9 - Gastro-esophageal reflux disease without esophagitis Status: Acute Assessment and Plan: Continue PPI Plan dialysis catheter kinking general surgery on board for possible need for replacement DVT prophylaxis with heparin plavix held for 2 weeks may need to have her catheter replaced GI prophylaxis with PPI Code status full code Subjective Date/time seen: 05/22/22 16:25 Interval history: patient seen during the today during the dialysis. Discussed with Nephrology. No other new complaints. Review of Systems Review of Systems: All systems reviewed & are unremarkable except as noted in HPI and below Exam Narrative: General: No acute distress, alert and oriented per baseline HEENT: Atraumatic, normocephalic, mucous membranes moist CV: Regular rate and rhythm, S1, S2 Lungs: Clear to auscultation bilaterally, no rales or crackles noted, no wheezes, good air entry Right chest dialysis catheter in place Abdomen: Soft, nontender, nondistended Extremities: Normal to inspection Skin: No rashes noted, no lesions or wounds seen Psych: Euthymic, normal affect Objective Data Vital Signs Vital Signs: Vital Signs - 24 hr 05/21/22 20:54 05/21/22 22:00 05/21/22 20:00 Temperature 98.2 F Pulse Rate 76 64 Respiratory Rate 18 Blood Pressure 164/33 H Pulse Oximetry 94 Oxygen Delivery Room Air 05/22/22 06:00 05/21/22 20:00 05/22/22 00:00 Temperature 97.6 F Pulse Rate 52 L 61 56 L Respiratory Rate 20 Blood Pressure 154/40 H Pulse Oximetry 96 Oxygen Delivery 05/22/22 04:00 05/22/22 09:27 05/22/22 09:15 Temperature 98.4 F Pulse Rate 50 L 64 64 Respiratory Rate 16 Blood Pressure 160/53 H 158/50 H Pulse Oximetry Oxygen Delivery 05/22/22 09:50 05/22/22 10:10 05/22/22 08:00 Temperature Pulse Rate 59 L 59 L Respiratory Rate Blood Pressure 113/45 L 140/57 L Pulse Oximetry Oxygen Delivery Room Air 05/22/22 10:30 05/22/22 10:50 05/22/22 11:10 Temperature
[2022-05-22 16:34] LABS: Glucose Point of Care 115 mg/dl (65-105)
[2022-05-22] MEDS: ASPIRIN 81 MG CHEWABLE TABLET PO (23:15)
[2022-05-22] MEDS: ATORVASTATIN 40 MG TABLET PO (23:15)
[2022-05-22 23:58] LABS: Glucose Point of Care 100 mg/dl (65-105)
[2022-05-23] VITALS (22 sets, daily range): BP systolic 113–162; BP diastolic 36–85; PULSE 51–66; RESP 14–20; TEMP 35.9–37.2; O2SAT 92–97
[2022-05-23 07:49] LABS: Basophils Absolute Auto 0.1 K/mm3 (0.0-0.1); Eosinophils Absolute Auto 0.6 K/mm3 (0-0.3); Eosinophils Percent Auto 8.8 % (0-4.4); Hematocrit 26.7 % (37.0-47.0); Immature Granulocyte Absolute 0.04 K/mm3 (0.00-0.031); Immature Granulocyte Percent A 0.5 % (0-0.5); Lymphocytes Absolute Auto 1.34 K/mm3 (0.9-3.2); Lymphocytes Percent Auto 18.4 % (18.3-44.2); Mean Corpuscular Hemoglobin 28.9 pg (26-34); Mean Corpuscular Volume 96.4 fl (80-100); Mean Platelet Volume 10.1 fl (7.4-10.4); Monocytes Absolute Auto 0.9 K/mm3 (0.1-0.6); Monocytes Percent Auto 12.6 % (2.6-8.5); Neutrophils Absolute Auto 4.3 K/mm3 (1.3-6.7); Neutrophils Percent Auto 58.7 % (45.5-73.1); Nucleated Red Blood Cells Perc 0.5 % (0.0-0.2); Platelet Count Result 137 k/mm3 (150-375); Red Blood Count 2.77 M/mm3 (4.2-5.4); Red Cell Distribution Width 16.9 % (11.5-14.5); White Blood Count 7.3 K/mm3 (4.5-10.0)
[2022-05-23 07:53] LABS: Alanine Aminotransferase 13 U/L (6-35); Albumin Level 3.2 g/dL (3.5-5.1); Alkaline Phosphatase 111 U/L (38-126); Anion Gap 12 mmol/L (8-16); Aspartate Amino Transferase 42 U/L (14-36); Bilirubin,Total 0.7 mg/dL (0.2-1.3); Blood Urea Nitrogen 16 mg/dL (7-17); Calcium 8.3 mg/dL (8.4-10.2); Carbon Dioxide 28 mmol/L (22-30); Chloride 98 mmol/L (98-107); Estimated Glomerular Filt Rate 17; Glucose 102 mg/dL (65-110); Potassium 3.2 mmol/L (3.4-5.0); Sodium 138 mmol/L (137-145)
--- NOTE | 2022-05-23 09:07 | WPDHPUPDATE1 ---
History and Physical Update Update Date/Time: 05/23/22 09:07 History and Physical has been reviewed, including an updated exam of the patient. There are changes in the patient's condition. patient had a tunneled dialysis catheter placed on the right on Thursday05/19/2022. It has functioned but the flow has been poor. It was repositioned yesterday, however today the arterial limb of the catheter still did not perform well. Therefore, it would be flagged as an outpatient for poor function and be requested to be replaced. Therefore, will try to revise or replace in the ER today under fluoroscopy. Need to be prepared to possibly replace and possibly use ultrasound for placement on the left. Patient informed and consented for same. Risks, benefits, and alternatives Including bleeding, subsequent infection, subsequent need for alternative site placement have been discussed and questions answered. Patient agrees to proceed with procedure.
[2022-05-23] MEDS: hydrALAZINE HCL 50 MG TABLET PO ×2 (10:06→17:58)
[2022-05-23] MEDS: PANTOPRAZOLE 40 MG TABLET PO (10:07)
[2022-05-23] MEDS: carvediloL 12.5 MG TABLET PO (10:07)
[2022-05-23] MEDS: amLODIPine BESYLATE 5 MG TABLET 10 MG PO (10:07)
[2022-05-23] MEDS: SODIUM CHLORIDE 0.9% IV 1,000 ML 999 ML IV CONT ×2 (10:31→11:19)
--- NOTE | 2022-05-23 10:32 | PCNWS ---
Weekly nutritional screen. Patient is tolerating current diet with adequate intake. No weight loss reported. No nutritional needs at this time. Pt verbalized that she is used to a renal diet and does not need additional education. She is having her HD catheter replaced today.
[2022-05-23 11:44] LABS: Glucose Point of Care 122 mg/dl (65-105)
--- NOTE | 2022-05-23 12:18 | P.PNNP_ITS ---
Progress Note: A&P Assessment and Plan (1) End stage renal disease: Code(s): N18.6 - End stage renal disease Status: Chronic Assessment and Plan: * due to progression of her known disease from diabetes/hypertension * s/p HD catheter placement - plan revision today due to ongoing poor blood flows * plan HD tomorrow since outpatient schedule will be T/T/S * fluid removal, clearance, and electrolytes control as tolerated * transition to peritoneal dialysis as an outpatient (2) Volume overload: Code(s): E87.70 - Fluid overload, unspecified Status: Acute Assessment and Plan: * as evidenced by CXR and exam * on oral bumex since still has residual kidney function * further fluid removal/ultrafiltration with dialysis as tolerated (3) Essential hypertension: Code(s): I10 - Essential (primary) hypertension Status: Chronic Assessment and Plan: * reasonable control at this time * follow trend of hemodynamics (4) Chronic diastolic CHF (congestive heart failure): Code(s): I50.32 - Chronic diastolic (congestive) heart failure Status: Acute Assessment and Plan: * seems compensated * current volume status more related to kidney dysfunction * on diuretics * further fluid removal with dialysis as well (5) Anemia: Code(s): D64.9 - Anemia, unspecified Status: Acute Assessment and Plan: * due to ESRD * anemia studies with iron deficiency * Epogen and venofer with HD * follow trend of H/H (6) Diabetes: Code(s): E11.9 - Type 2 diabetes mellitus without complications Status: Chronic Assessment and Plan: * follow glucose readings (although last A1c at goal if not better) Will continue to follow. Subjective Date/time seen: 05/23/22 12:18 Attempted dialysis treatment done earlier today to assess HD catheter since adjustments done by Surgery yesterday afternoon; unfortunately, HD catheter still with poor blood flows; Surgery plans taking back to OR for revision of HD catheter; no apparent distress noted. Exam Narrative: General: Elderly female in NAD Heart: normal S1 and S2; no rub Lungs: decreased at bases Abdomen: soft, nontender, nondistended, positive bowel sounds Extremities: no cyanosis or clubbing; 1+ edema Skin: warm and dry Objective Data Vital Signs Vital Signs: Vital Signs Temp Pulse Resp BP Pulse Ox O2 Del Method 05/23/22 12:00 58 L 05/23/22 08:00 58 L 05/23/22 08:30 36.7 C 62 16 155/85 H 05/23/22 08:28 63 157/67 H 05/23/22 08:21 66 162/58 H 05/23/22 10:07 62 05/23/22 08:02 36.9 C 57 L 16 154/61 H 05/23/22 04:00 51 L 05/23/22 00:00 64 05/22/22 20:00 64 05/23/22 04:21 35.9 C L 59 L 16 138/49 L 97 05/22/22 21:38 36.2 C L 66 18 147/48 H 95 Intake/Output Intake/Output: Intake & Output 05/20/22 05/21/22 05/22/22 05/23/22 23:59 23:59 23:59 23:59 Intake Total 1230 580 690 240 Output Total 19990 0 Balance -770 580 -1510 240 Meds/Results Medications: Active Medications Generic Name Dose Route Start Last Admin
--- NOTE | 2022-05-23 12:18 | PM.PNNEP ---
Progress Note: A&P Assessment and Plan (1) End stage renal disease: Code(s): N18.6 - End stage renal disease Status: Chronic Assessment and Plan: due to progression of her known disease from diabetes/hypertension s/p HD catheter placement - plan revision today due to ongoing poor blood flows plan HD tomorrow since outpatient schedule will be T/T/S fluid removal, clearance, and electrolytes control as tolerated transition to peritoneal dialysis as an outpatient (2) Volume overload: Code(s): E87.70 - Fluid overload, unspecified Status: Acute Assessment and Plan: as evidenced by CXR and exam on oral bumex since still has residual kidney function further fluid removal/ultrafiltration with dialysis as tolerated (3) Essential hypertension: Code(s): I10 - Essential (primary) hypertension Status: Chronic Assessment and Plan: reasonable control at this time follow trend of hemodynamics (4) Chronic diastolic CHF (congestive heart failure): Code(s): I50.32 - Chronic diastolic (congestive) heart failure Status: Acute Assessment and Plan: seems compensated current volume status more related to kidney dysfunction on diuretics further fluid removal with dialysis as well (5) Anemia: Code(s): D64.9 - Anemia, unspecified Status: Acute Assessment and Plan: due to ESRD anemia studies with iron deficiency Epogen and venofer with HD follow trend of H/H (6) Diabetes: Code(s): E11.9 - Type 2 diabetes mellitus without complications Status: Chronic Assessment and Plan: follow glucose readings (although last A1c at goal if not better) Will continue to follow. Subjective Date/time seen: 05/23/22 12:18 Attempted dialysis treatment done earlier today to assess HD catheter since adjustments done by Surgery yesterday afternoon; unfortunately, HD catheter still with poor blood flows; Surgery plans taking back to OR for revision of HD catheter; no apparent distress noted. Exam Narrative: General: Elderly female in NAD Heart: normal S1 and S2; no rub Lungs: decreased at bases Abdomen: soft, nontender, nondistended, positive bowel sounds Extremities: no cyanosis or clubbing; 1+ edema Skin: warm and dry Objective Data Vital Signs Vital Signs: Vital Signs Temp Pulse Resp BP Pulse Ox O2 Del Method 05/23/22 12:00 58 L 05/23/22 08:00 58 L 05/23/22 08:30 36.7 C 62 16 155/85 H 05/23/22 08:28 63 157/67 H 05/23/22 08:21 66 162/58 H 05/23/22 10:07 62 05/23/22 08:02 36.9 C 57 L 16 154/61 H 05/23/22 04:00 51 L 05/23/22 00:00 64 05/22/22 20:00 64 05/23/22 04:21 35.9 C L 59 L 16 138/49 L 97 05/22/22 21:38 36.2 C L 66 18 147/48 H 95 Intake/Output Intake/Output: Intake & Output 05/20/22 05/21/22 05/22/22 05/23/22 23:59 23:59 23:59 23:59 Intake Total 1230 580 690 240 Output Total 2000 2200 0 Balance -770 580 -1510 240 Meds/Results Medications: Active Medications Generic Name Dose Route Start Last Admin Trade Name Freq PRN Reason Stop Dose Admin Allopurinol 100 mg 05/17/22 09:00 05/19/22 14:46 Allopurinol 100 Mg Tablet PO 100 mg DAILY MACARIO Administration Amlodipine Besylate 10 mg 05/17/22 09:00 05/23/22 10:07 Amlodipine Besylate 5 Mg Tablet PO 10 mg DAILY MACARIO Administration Aspirin 81 mg 05/17/22 21:00 05/22/22 23:15 Aspirin 81 Mg Chewable Tablet PO 06/16/22 20:59 81 mg HS MACARIO Administration Atorvastatin Calcium 40 mg 05/17/22 21:00 05/22/22 23:15 Atorvastatin 40 Mg Tablet PO 40 mg HS MACARIO Administration Benzocaine 1 lozenge 05/17/22 22:02 05/20/22 13:58 Benzocaine/Menthol (*Bkc) 18 Ea Lozenge PO 1 lozenge PRN PRN Administration Sore Throat Benzonatate 200 mg 05/21/22 09:00 05/23/22 13:05 Benzonatate 100 Mg Capsule
--- NOTE | 2022-05-23 13:41 | PM.IMPN ---
Progress Note: A&P Assessment and Plan (1) Acute kidney injury superimposed on chronic kidney disease: Code(s): N17.9 - Acute kidney failure, unspecified; N18.9 - Chronic kidney disease, unspecified Status: Acute Assessment and Plan: Tunnel catheter placed 05/19/2022 and started on hemodialysis Nephrology following Plan to transition to peritoneal dialysis an outpatient basis [facility] issues with flow via dialysis catheter general surgery on board for possible need to replace (2) Acute hyperkalemia: Code(s): E87.5 - Hyperkalemia Status: Acute Assessment and Plan: Managed by Nephrology (3) Essential hypertension: Code(s): I10 - Essential (primary) hypertension Status: Chronic Assessment and Plan: Stable, continue home meds (4) Chronic diastolic CHF (congestive heart failure): Code(s): I50.32 - Chronic diastolic (congestive) heart failure Status: Acute Assessment and Plan: Stable, suspect volume overload is secondary to kidney failure at this time Echo 10/25: EF 65-70% grade 2 diastolic dysfunction hypokinetic WM and mild to moderate MR On Zack hydralazine/Imdur (5) Hx of CABG: Code(s): Z95.1 - Presence of aortocoronary bypass graft Status: Acute Assessment and Plan: Stent placement in October 2021 Continue home meds, on aspirin and Plavix Plavix currently on hold (6) Obstructive sleep apnea: Code(s): G47.33 - Obstructive sleep apnea (adult) (pediatric) Status: Acute Assessment and Plan: Consult respiratory therapy for nocturnal CPAP (7) Diabetes: Code(s): E11.9 - Type 2 diabetes mellitus without complications Status: Chronic Assessment and Plan: A1c was 5.4, no need for Accu-Cheks or sliding scale insulin, will monitor glucose daily on BMPs (8) GERD (gastroesophageal reflux disease): Code(s): K21.9 - Gastro-esophageal reflux disease without esophagitis Status: Acute Assessment and Plan: Continue PPI Plan dialysis catheter kinking general surgery on board Plan for revision of the dialysis catheter today DVT prophylaxis with heparin plavix held for 2 weeks may need to have her catheter replaced GI prophylaxis with PPI Code status full code Subjective Date/time seen: 05/23/22 13:41 Interval history: still has a flow issue. Plan for revision of the dialysis catheter today. Discussed with General surgery. No other complaints. Review of Systems Review of Systems: All systems reviewed & are unremarkable except as noted in HPI and below Exam Narrative: General: No acute distress, alert and oriented per baseline HEENT: Atraumatic, normocephalic, mucous membranes moist CV: Regular rate and rhythm, S1, S2 Lungs: Clear to auscultation bilaterally, no rales or crackles noted, no wheezes, good air entry Right chest dialysis catheter in place Abdomen: Soft, nontender, nondistended Extremities: Normal to inspection Skin: No rashes noted, no lesions or wounds seen Psych: Euthymic, normal affect Objective Data Vital Signs Vital Signs: Vital Signs - 24 hr 05/22/22 13:51 05/22/22 16:00 05/22/22 16:00 Temperature 97.3 F L Pulse Rate 62 66 66 Respiratory Rate 16 Blood Pressure 170/38 H Pulse Oximetry 93 05/22/22 21:38 05/23/22 04:21 05/22/22 20:00 Temperature 97.2 F L 96.6 F L Pulse Rate 66 59 L 64 Respiratory Rate 18 16 Blood Pressure 147/48 H 138/49 L Pulse Oximetry 95 97 05/23/22 00:00 05/23/22 04:00 05/23/22 08:02 Temperature 98.4 F Pulse Rate 64 51 L 57 L Respiratory Rate 16 Blood Pressure 154/61 H Pulse Oximetry 05/23/22 10:07 05/23/22 08:21 05/23/22 08:28 Temperature Pulse Rate 62 66 63 Respiratory Rate Blood Pressure 162/58 H 157/67 H Pulse Oximetry 05/23/22 08:30 05/23/22 08:00 05/23/22 12:00 Temperature 98.1 F
[2022-05-23] MEDS: SODIUM CHLORIDE 0.9% IV 500 ML 30 ML IV CONT (14:55)
[2022-05-23] MEDS: ceFAZolin 2 GM/D5W 50 ML 2 GM/50 ML BAG IVPB (14:59)
[2022-05-23] MEDS: HEPARIN SODIUM 5,000 UNITS/ML VIAL 1000 UNITS IRRIGATION (15:36)
[2022-05-23] MEDS: BUPIVACAINE/EPINEPHRINE 0.25% 10 ML VIAL INFILTRATE (16:06)
[2022-05-23] MEDS: HEPARIN SODIUM, PORCINE 10,000 UNITS/10 ML VIAL 10000 UNITS XX (16:18)
--- NOTE | 2022-05-23 16:27 | W.PM.PROC2 ---
Procedure Note - Detailed Date of Procedure 05/23/22 Pre-op Diagnosis MASSIMO on CKD, hyperkalemia Post-op Diagnosis Same Procedure Performed Fluoroscopic wire guided Replacement of tunneled dialysis catheter. Surgeon Manohar Hunter MD Poultry Picker Maeve [email or web address] computer assistant Anesthesia Other (GIVS) Indications The patient has end-stage renal disease with need for access for hemodialysis Findings It appeared that there was a subcutaneous kink in the originally placed catheter near the highest incision in the neck for tunneling. Because my impression on review with the radiologist that portion of the catheter may have been disrupted internally while tunneling I completely replaced the catheter with a new 28 cm catheter versus the previous which was 32 cm. Description of Procedure The patient was placed in the supine position on the operating table and after induction of adequate mask general anesthesia (GIVS) by the nurse pipeline construction inspector, we carefully rotated the patient's head and tilted slightly to the left then prepping both sides of the neck and chest with chlorhexidine. After waiting 3 minutes I carefully draped the patient, and we performed a time-out confirming the patient's site of surgery. Because of the patients size, a new 28 cm DuraFlow catheter was selected after carefully evaluating the current catheter which had been prepped into the field. I started the procedure after draping by carefully opening incision directly over the insertion site in the medial right neck. We were able to identify the catheter there was a small amount of clot between the skin and the catheter. I subsequently opened the counter incision which was higher in slightly more lateral in the right neck. Similarly the catheter was directly underneath this was no obvious suture injury to the catheter. There was a kink in the catheter at that level but no obvious hole. The 3rd incision I left closed. We then used the tonsil to carefully insert underneath the catheter lifted out of the incision at the insertion site. I allowed the catheter to come up into the tract a little bit further such that we could get at least a loop of 3 cm up out of the incision. At this point is when I decided that we should completely replaced the catheter so we opened the above-mentioned 28 cm dura flow catheter with all the appropriate devices in the kit to replace the current one. The J-guidewire was advanced through the the current catheter after making incision on 1 side of the catheter not completely cutting it. The provided J wire was inserted through the old catheter into the central venous system using the usual Seldinger technique. C-arm fluoroscopy was used to confirm that the wire was then through to the central venous system and had passed beyond the catheter tip into the central venous system. I then completely cut the catheter carefully holding the portion that was in the central venous system with a hemostat such that we could remove just that part of the catheter up over the wire we used fluoroscopy to be sure that the wire stating the central venous system and removed the inner or distal portion of the old catheter off over the wire. Used a dilator to carefully placed back over the wire to be sure there was not continued bleeding around the wire from the internal jugular vein. The remainder part of the catheter was then pulled out from the exit site on the patient's right chest. Following this, we measured the new size 28 DuraFlow catheter such that the tip would be just into the right atrium or in the distal superior vena cava. Then the catheter was measured back to the entry site of the J- wire in a curvilinear fashion and down to the patient's chest overlying the right clavicle. Local anesthetic was placed into 3 graves, the exit site and then 2 more on the patient's lateral neck such that a curvilinear path could be dissected through the subcutaneous tissues up to the insertio
[2022-05-23 16:33] LABS: Glucose Point of Care 95 mg/dl (65-105)
[2022-05-23] MEDS: ISOSORBIDE MONONITRATE 60 MG TAB.ER.24H PO (17:57)
[2022-05-23] MEDS: BENZONATATE 100 MG CAPSULE 200 MG PO (17:57)
[2022-05-23] MEDS: MAGNESIUM OXIDE 400 MG TABLET PO (17:57)
[2022-05-23] MEDS: BUMETANIDE 1 MG TABLET 2 MG PO (17:58)
[2022-05-23] MEDS: ATORVASTATIN 40 MG TABLET PO (21:15)
[2022-05-23] MEDS: ASPIRIN 81 MG CHEWABLE TABLET PO (21:16)
[2022-05-24] VITALS (17 sets, daily range): BP systolic 130–178; BP diastolic 46–75; PULSE 56–76; RESP 16–20; TEMP 36.5–36.8; O2SAT 94–97
[2022-05-24 07:21] LABS: Basophils Absolute Auto 0.1 K/mm3 (0.0-0.1); Basophils Percent Auto 0.6 % (0.2-1.2); Eosinophils Absolute Auto 0.8 K/mm3 (0-0.3); Hematocrit 25.1 % (37.0-47.0); Hemoglobin 7.6 g/dL (12.0-15.0); Immature Granulocyte Absolute 0.04 K/mm3 (0.00-0.031); Immature Granulocyte Percent A 0.4 % (0-0.5); Lymphocytes Absolute Auto 1.38 K/mm3 (0.9-3.2); Lymphocytes Percent Auto 15.4 % (18.3-44.2); Mean Corpuscular HGB Conc 30.3 g/dl (32-36); Mean Corpuscular Hemoglobin 28.1 pg (26-34); Mean Platelet Volume 9.9 fl (7.4-10.4); Monocytes Absolute Auto 0.9 K/mm3 (0.1-0.6); Monocytes Percent Auto 10.2 % (2.6-8.5); Neutrophils Absolute Auto 5.8 K/mm3 (1.3-6.7); Neutrophils Percent Auto 64.4 % (45.5-73.1); Platelet Count Result 122 k/mm3 (150-375); Red Cell Distribution Width 17.2 % (11.5-14.5)
[2022-05-24 07:32] LABS: Alanine Aminotransferase 10 U/L (6-35); Albumin Level 3.2 g/dL (3.5-5.1); Alkaline Phosphatase 109 U/L (38-126); Anion Gap 10 mmol/L (8-16); Aspartate Amino Transferase 36 U/L (14-36); Bilirubin,Total 0.6 mg/dL (0.2-1.3); Blood Urea Nitrogen 21 mg/dL (7-17); Calcium 8.2 mg/dL (8.4-10.2); Carbon Dioxide 28 mmol/L (22-30); Chloride 100 mmol/L (98-107); Estimated Glomerular Filt Rate 14; Glucose 99 mg/dL (65-110); INR 1.2; Potassium 3.7 mmol/L (3.4-5.0); Prothrombin Time 14.5 Seconds (11.1-14.7); Sodium 138 mmol/L (137-145)
[2022-05-24 07:33] LABS: Partial Thromboplastin Time 30.5 SECONDS (22.3-36.8)
[2022-05-24 07:45] LABS: Glucose Point of Care 103 mg/dl (65-105)
--- NOTE | 2022-05-24 09:08 | WPDANESPN ---
Anes - Prog Note Post-Op Date/Time: 05/24/22 09:08 Cardiovascular status: normal Respiratory status: normal Airway patency: baseline Mental status: baseline Post-Op hydration status: normal Vital Signs: Last Vital Signs Temp 36.6 C 05/24/22 08:07 Pulse 58 L 05/24/22 08:40 Resp 18 05/24/22 08:07 BP 136/46 L 05/24/22 08:40 Pulse Ox 97 05/24/22 06:18 O2 Del Method CPAP 05/24/22 01:58 O2 Flow Rate 1 05/19/22 20:00 Pain Score (VAS): Patient asleep, no non-verbal signs of pain I/O: Intake & Output 05/23/22 05/24/22 05/24/22 23:59 07:59 15:59 Intake Total 707 802 2760 Output Total 150 Balance 513 724 0407 Laboratory Tests 05/24/22 06:58 05/24/22 06:58 05/23/22 05/23/22 05/23/22 09:49 11:41 16:28 WBC RBC Hgb Hct MCV MCH MCHC RDW Plt Count MPV Immature Gran % (Auto) Neut % (Auto) Lymph % (Auto) Cedar % (Auto) Eos % (Auto) Baso % (Auto) Lymph # (Auto) Cedar # (Auto) Eos # (Auto) Baso # (Auto) Abs Immat Gran (auto) Absolute Neuts (auto) Absolute Nucleated RBC Nucleated RBC % PT INR APTT Sodium Potassium Chloride Carbon Dioxide Anion Gap BUN Creatinine Estim Creat Clear Calc Estimated GFR Glucose POC Capillary Glucose 122 H 95 Calcium Total Bilirubin AST ALT Alkaline Phosphatase Total Protein Albumin Blood Type A Positive Antibody Screen Negative 05/24/22 05/24/22 05/24/22 06:58 06:58 06:58 WBC 9.0 RBC 2.70 L Hgb 7.6 L Hct 25.1 L MCV 93.0 MCH 28.1 MCHC 30.3 L RDW 17.2 H Plt Count 122 L MPV 9.9 Immature Gran % (Auto) 0.4 Neut % (Auto) 64.4 Lymph % (Auto) 15.4 L Cedar % (Auto) 10.2 H Eos % (Auto) 9.0 H Baso % (Auto) 0.6 Lymph # (Auto) 1.38 Cedar # (Auto) 0.9 H Eos # (Auto) 0.8 H Baso # (Auto) 0.1 Abs Immat Gran (auto) 0.04 H Absolute Neuts (auto) 5.8 Absolute Nucleated RBC 0.0 Nucleated RBC % 0.0 PT 14.5 INR 1.2 APTT 30.5 Sodium 138 Potassium 3.7 Chloride 100 Carbon Dioxide 28 Anion Gap 10 BUN 21 H Creatinine 3.20 H Estim Creat Clear Calc Not Reportable Estimated GFR 14 L Glucose 99 POC Capillary Glucose Calcium 8.2 L Total Bilirubin 0.6 AST 36 ALT 10 Alkaline Phosphatase 109 Total Protein 6.0 L Albumin 3.2 L Blood Type Antibody Screen 05/24/22 07:34 WBC RBC Hgb Hct MCV MCH MCHC RDW Plt Count MPV Immature Gran % (Auto) Neut % (Auto) Lymph % (Auto) Cedar % (Auto) Eos % (Auto) Baso % (Auto) Lymph # (Auto) Cedar # (Auto) Eos # (Auto) Baso # (Auto) Abs Immat Gran (auto) Absolute Neuts (auto) Absolute Nucleated RBC Nucleated RBC % PT INR APTT Sodium Potassium Chloride Carbon Dioxide Anion Gap BUN Creatinine Estim Creat Clear Calc Estimated GFR Glucose POC Capillary Glucose 103 Calcium Total Bilirubin AST ALT Alkaline Phosphatase Total Protein Albumin Blood Type Antibody Screen Post-procedural complaints: none Patient Feedback: Patient satisfied with anesthetic care.
[2022-05-24] MEDS: EPOETIN ALFA-EPBX 10,000 UNITS/ML VIAL 10000 UNITS IV PUSH (09:18)
--- NOTE | 2022-05-24 11:10 | P.PNNP_ITS ---
Progress Note: A&P Assessment and Plan (1) End stage renal disease: Code(s): N18.6 - End stage renal disease Status: Chronic Assessment and Plan: * due to progression of her known disease from diabetes/hypertension * s/p HD catheter placement - plan revision today due to ongoing poor blood flows * HD today since outpatient schedule will be T/T/S * fluid removal, clearance, and electrolytes control as tolerated * transition to peritoneal dialysis to be donbe as an outpatient (2) Volume overload: Code(s): E87.70 - Fluid overload, unspecified Status: Acute Assessment and Plan: * as evidenced by CXR and exam * on oral bumex since still has some residual kidney function * further fluid removal/ultrafiltration with dialysis as tolerated (3) Essential hypertension: Code(s): I10 - Essential (primary) hypertension Status: Chronic Assessment and Plan: * reasonable control at this time * follow trend of hemodynamics (4) Chronic diastolic CHF (congestive heart failure): Code(s): I50.32 - Chronic diastolic (congestive) heart failure Status: Acute Assessment and Plan: * seems compensated * current volume status more related to kidney dysfunction * on diuretics * further fluid removal with dialysis as well (5) Anemia: Code(s): D64.9 - Anemia, unspecified Status: Acute Assessment and Plan: * due to ESRD * anemia studies with iron deficiency * Epogen and venofer with HD * follow trend of H/H (6) Diabetes: Code(s): E11.9 - Type 2 diabetes mellitus without complications Status: Chronic Assessment and Plan: * follow glucose readings (although last A1c at goal if not better) Not opposed to discharge from renal perspective if otherwise medically stable and arrangements for outpatient hemodialysis have been finalized. Will continue to follow. Subjective Date/time seen: 05/24/22 11:11 Tolerating dialysis treatment at the time of my visit (seen on HD at ~ 10:55AM); s/p tunneled HD catheter revision yesterday afternoon and tolerated this intervention as well; HD catheter blood flows are significantly better at this time; no other issues/events voiced currently. Exam Narrative: General: Elderly female in NAD Heart: normal S1 and S2; no rub Lungs: decreased at bases Abdomen: soft, nontender, nondistended, positive bowel sounds Extremities: no cyanosis or clubbing; 1+ edema Skin: warm and dry Objective Data Vital Signs Vital Signs: Vital Signs Temp Pulse Resp BP Pulse Ox O2 Del Method 05/24/22 10:20 59 L 131/52 L 05/24/22 08:00 Room Air 05/24/22 08:00 61 05/24/22 10:00 56 L 146/52 H 05/24/22 09:40 59 L 150/54 H 05/24/22 09:20 62 141/51 H 05/24/22 09:00 61 136/50 L 05/24/22 08:40 58 L 136/46 L 05/24/22 08:30 56 L 130/48 L 05/24/22 08:11 60 170/60 H 05/24/22 08:07 36.6 C 62 18 178/53 H 05/24/22 06:18 36.6 C 56 L 18 161/51 H 97 05/24/22 04:00 61 05/24/22 00:00 57 L 05/24/22 02:19 36.6 C 58 L 20 139/48 L 94 05/24/22 01:58 CPAP 05/23/22 22:59 CPAP 05/23/22 22:33 36.7 C 56 L 20 159/38 H 92 05/23/22 20:20 58 L
--- NOTE | 2022-05-24 11:10 | PM.PNNEP ---
Progress Note: A&P Assessment and Plan (1) End stage renal disease: Code(s): N18.6 - End stage renal disease Status: Chronic Assessment and Plan: due to progression of her known disease from diabetes/hypertension s/p HD catheter placement - plan revision today due to ongoing poor blood flows HD today since outpatient schedule will be T/T/S fluid removal, clearance, and electrolytes control as tolerated transition to peritoneal dialysis to be donbe as an outpatient (2) Volume overload: Code(s): E87.70 - Fluid overload, unspecified Status: Acute Assessment and Plan: as evidenced by CXR and exam on oral bumex since still has some residual kidney function further fluid removal/ultrafiltration with dialysis as tolerated (3) Essential hypertension: Code(s): I10 - Essential (primary) hypertension Status: Chronic Assessment and Plan: reasonable control at this time follow trend of hemodynamics (4) Chronic diastolic CHF (congestive heart failure): Code(s): I50.32 - Chronic diastolic (congestive) heart failure Status: Acute Assessment and Plan: seems compensated current volume status more related to kidney dysfunction on diuretics further fluid removal with dialysis as well (5) Anemia: Code(s): D64.9 - Anemia, unspecified Status: Acute Assessment and Plan: due to ESRD anemia studies with iron deficiency Epogen and venofer with HD follow trend of H/H (6) Diabetes: Code(s): E11.9 - Type 2 diabetes mellitus without complications Status: Chronic Assessment and Plan: follow glucose readings (although last A1c at goal if not better) Not opposed to discharge from renal perspective if otherwise medically stable and arrangements for outpatient hemodialysis have been finalized. Will continue to follow. Subjective Date/time seen: 05/24/22 11:11 Tolerating dialysis treatment at the time of my visit (seen on HD at ~ 10:55AM); s/p tunneled HD catheter revision yesterday afternoon and tolerated this intervention as well; HD catheter blood flows are significantly better at this time; no other issues/events voiced currently. Exam Narrative: General: Elderly female in NAD Heart: normal S1 and S2; no rub Lungs: decreased at bases Abdomen: soft, nontender, nondistended, positive bowel sounds Extremities: no cyanosis or clubbing; 1+ edema Skin: warm and dry Objective Data Vital Signs Vital Signs: Vital Signs Temp Pulse Resp BP Pulse Ox O2 Del Method 05/24/22 10:20 59 L 131/52 L 05/24/22 08:00 Room Air 05/24/22 08:00 61 05/24/22 10:00 56 L 146/52 H 05/24/22 09:40 59 L 150/54 H 05/24/22 09:20 62 141/51 H 05/24/22 09:00 61 136/50 L 05/24/22 08:40 58 L 136/46 L 05/24/22 08:30 56 L 130/48 L 05/24/22 08:11 60 170/60 H 05/24/22 08:07 36.6 C 62 18 178/53 H 05/24/22 06:18 36.6 C 56 L 18 161/51 H 97 05/24/22 04:00 61 05/24/22 00:00 57 L 05/24/22 02:19 36.6 C 58 L 20 139/48 L 94 05/24/22 01:58 CPAP 05/23/22 22:59 CPAP 05/23/22 22:33 36.7 C 56 L 20 159/38 H 92 05/23/22 20:20 58 L 05/23/22 21:16 56 L 05/23/22 18:40 37.1 C 58 L 18 160/40 H 92 05/23/22 17:40 36.4 C L 62 18 149/36 H 92 05/23/22 17:10 36.2 C L 58 L 18 113/44 L 94 05/23/22 16:54 58 L 16 153/50 H 94 Room Air 05/23/22 16:45 58 L 18 149/41 H 94 Room Air 05/23/22 16:30 58 L 18 150/46 H 94 Room Air 05/23/22 16:16 36.4 C L 55 L 14 128/39 L 94 Room Air 05/23/22 14:00 37.2 C 61 16 156/36 H 97 05/23/22 14:40 36.7 C 64 16 159/40 H 97 Room Air 05/23/22 12:00 58 L Intake/Output Intake/Output: Intake & Output 05/21/22 05/22/22 05/23/22 05/24/22 23:59 23:59 23:59 23:59 Intake Total 580 976 320 5069 Output Total 2
[2022-05-24] MEDS: IRON SUCROSE COMPLEX 200 MG in SODIUM CHLORIDE 0.9% IV 50 ML 240 MG IVPB (11:25)
[2022-05-24 11:36] LABS: Glucose Point of Care 136 mg/dl (65-105)
[2022-05-24] MEDS: carvediloL 12.5 MG TABLET PO (12:11)
[2022-05-24] MEDS: hydrALAZINE HCL 50 MG TABLET PO (12:11)
[2022-05-24] MEDS: BENZONATATE 100 MG CAPSULE 200 MG PO (12:12)
[2022-05-24] MEDS: BUMETANIDE 1 MG TABLET 2 MG PO (12:12)
[2022-05-24] MEDS: PANTOPRAZOLE 40 MG TABLET PO (12:13)
[2022-05-24] MEDS: MAGNESIUM OXIDE 400 MG TABLET PO (12:13)
[2022-05-24] MEDS: ISOSORBIDE MONONITRATE 60 MG TAB.ER.24H PO (12:13)
[2022-05-24] MEDS: amLODIPine BESYLATE 5 MG TABLET 10 MG PO (12:13)
--- NOTE | 2022-05-24 12:27 | PM.DS ---
DS: Admitting Diagnosis Discharge Date 05/24/2022 Admitting Diagnosis shortness of breath DS: Discharge Diagnosis Discharge Diagnosis (1) Acute kidney injury superimposed on chronic kidney disease: Code(s): N17.9 - Acute kidney failure, unspecified; N18.9 - Chronic kidney disease, unspecified Status: Acute (2) Acute hyperkalemia: Code(s): E87.5 - Hyperkalemia Status: Acute (3) Essential hypertension: Code(s): I10 - Essential (primary) hypertension Status: Chronic (4) Chronic diastolic CHF (congestive heart failure): Code(s): I50.32 - Chronic diastolic (congestive) heart failure Status: Acute (5) Hx of CABG: Code(s): Z95.1 - Presence of aortocoronary bypass graft Status: Acute (6) Obstructive sleep apnea: Code(s): G47.33 - Obstructive sleep apnea (adult) (pediatric) Status: Acute (7) Diabetes: Code(s): E11.9 - Type 2 diabetes mellitus without complications Status: Chronic (8) GERD (gastroesophageal reflux disease): Code(s): K21.9 - Gastro-esophageal reflux disease without esophagitis Status: Acute DS: Summary Hospital Course Hospital Course: # Acute kidney injury superimposed on chronic kidney disease: Tunnel catheter placed 05/19/2022 and started on hemodialysis Nephrology following Plan to transition to peritoneal dialysis an outpatient basis eventually outpatient hemodialysis schedule was arranged at [facility]. Thursday at 9:15 a.m. # acute hyperkalemia: Resolved with dialysis # essential hypertension: Stable, continue home meds # chronic diastolic congestive heart failure: Stable, suspect volume overload is secondary to kidney failure at this time Echo 10/25: EF 65-70% grade 2 diastolic dysfunction hypokinetic WM and mild to moderate MR On Zack hydralazine/Imdur # coronary artery disease status post CABG and stents: ? Stent placement in October 2021 Continue home meds, on aspirin and Plavix Plavix Was held temporarily for dialysis catheter placement during the hospital stay # obstructive sleep apnea on nocturnal CPAP # diabetes mellitus type 2: A1c 5.4. Resume home medication at discharge. # GERD: Ppi # dialysis catheter kinking low-flow during the dialysis during the hospital stay. Revision of dialysis catheter done with improvement in the flow # DVT prophylaxis heparin # code status full code Time Spent with Patient Time attestation: Total time spent providing and/or coordinating discharge services: 45 minutes Exam Narrative: General: No acute distress, alert and oriented per baseline HEENT: Atraumatic, normocephalic, mucous membranes moist CV: Regular rate and rhythm, S1, S2 Lungs: Clear to auscultation bilaterally, no rales or crackles noted, no wheezes, good air entry Right chest dialysis catheter in place Abdomen: Soft, nontender, nondistended Extremities: Normal to inspection Skin: No rashes noted, no lesions or wounds seen Psych: Euthymic, normal affect DS: Data Data Completed and Pending Labs on day of discharge: Labs from last 24 hours 05/24/22 05/24/22 05/24/22 11:33 07:34 06:58 WBC RBC Hgb Hct MCV MCH MCHC RDW Plt Count MPV Immature Gran % (Auto) Neut % (Auto) Lymph % (Auto) [place] % (Auto) Eos % (Auto) Baso % (Auto) Lymph # (Auto) [place] # (Auto) Eos # (Auto) Baso # (Auto) Abs Immat Gran (auto) Absolute Neuts (auto) Absolute Nucleated RBC Nucleated RBC % PT 14.5 INR 1.2 APTT 30.5 Sodium Potassium Chloride Carbon Dioxide Anion Gap BUN Creatinine Estim Creat Clear Calc Estimated GFR Glucose POC Capillary Glucose 136 H 103 Calcium Total Bilirubin AST ALT Alkaline Phosphatase Total Protein Albumin 05/24/22 05/24/22 05/23/22 06:58 06:58 16:28 WBC 9.0 RBC
--- NOTE | 2022-05-24 19:31 | PC.NURSE ---
Patient called and noted they lost her discharge paperwork. Paperwork reprinted and left for patient at med surg nurses station. Patient stated her sister would orange picking supervisor.
== END 2022-05-24 14:35 | disposition home or self-care (01) | DRG 674 ==
LOC: ANHED 05-17 00:42 → ANH3MEDSUR 05-17 02:34
PROVIDERS: Internal Medicine Nephrology; Student in an Organized Health Care Education/Training Program; Surgery; Admitting Provider Internal Medicine; Emergency Provider Emergency Medicine; Visit Provider Internal Medicine
PROC: 0JH63XZ Insertion of Tunneled Vascular Access Device into Chest Subcutaneous Tissue and Fascia, Percutaneous Approach (ICD-10-PCS; CPT 36908; principal; 2022-05-19 12:30)
PROC: 0JPT3XZ Removal of Tunneled Vascular Access Device from Trunk Subcutaneous Tissue and Fascia, Percutaneous Approach (ICD-10-PCS; CPT 36908; principal; 2022-05-23 14:30)
DX: N17.9 Acute kidney failure, unspecified (principal); I13.0 Hypertensive heart and chronic kidney disease with heart failure and stage 1 through stage 4 chronic kidney disease, or unspecified chronic kidney disease; I50.32 Chronic diastolic (congestive) heart failure; I13.2 Hypertensive heart and chronic kidney disease with heart failure and with stage 5 chronic kidney disease, or end stage renal disease; N18.6 End stage renal disease; E11.22 Type 2 diabetes mellitus with diabetic chronic kidney disease; E87.70 Fluid overload, unspecified; I25.10 Atherosclerotic heart disease of native coronary artery without angina pectoris; G47.33 Obstructive sleep apnea (adult) (pediatric); E87.5 Hyperkalemia; K21.9 Gastro-esophageal reflux disease without esophagitis; Z20.822 Contact with and (suspected) exposure to COVID-19; I25.2 Old myocardial infarction; Z79.82 Long term (current) use of aspirin; Z79.84 Long term (current) use of oral hypoglycemic drugs; Z95.1 Presence of aortocoronary bypass graft; Z99.2 Dependence on renal dialysis
CPT/HCPCS: 36415; 71045; 76937; 77001; 80053; 80074; 81001; 82728; 82948; 83540; 83550; 83735; 83880; 85025; 85610; 85730; 86704; 86706; 86850; 86900; 86901; 87340; 87636; 93005; 94762; 96374; 96375; 99285; A9270; C1750; G0257; J0131; J0690; J1644; J1756; J1815; J1940; J2704; J3010; J7030; J7040; Q5105

== ENCOUNTER 2023-01-05 15:46 | Emergency (ER) | payer MEDICARE, SELFPAY ==
--- NOTE | ~2023-01-05 | CT_ITS ---
EXAMINATION: CT abdomen pelvis wo con DATE: 01/05/2023 20:00 INDICATION: Lower abdominal pain since placement of dialysis port TECHNIQUE: Computed tomography (CT) of the abdomen and pelvis was performed without intravenous contr ast. Automated exposure control and iterative reconstruction technique were employed. Exam dose: 495 .96 mGy-cm total exam DLP. COMPARISON: 04/30/2022 MR abdomen 04/26/2022 CT abdomen pelvis FINDINGS: There is atelectasis at the lung bases, primarily at the right lower lobe, to a lesser exte nt left lower lobe. Status post sternotomy. Small sliding hiatal hernia. Heart size is within normal range. No pericardial or pleural effusion. Status post cholecystectomy. The liver, spleen, pancreas, and adrenal glands are unremarkable. Bilateral renal cysts are again noted. No urinary tract obstruction or hydroureteronephrosis is dete cted. The urinary bladder is largely evacuated. Status post hysterectomy. There is extensive abdominal aortic calcification as well as extensive and severe calcification of th e celiac, hepatic, splenic, superior mesenteric, renal, inferior mesenteric, splenic and femoral yaw ella. No abdominal aortic aneurysm. There is minimal colonic diverticulosis. No bowel obstruction is noted. Small locule free air is note d in the lower anterior pelvis. There is a right sided percutaneous dialysis catheter which terminates in the pelvis, with mild high density fluid in the right pelvis consistent with blood. There is diffuse osteopenia. There is mild to moderate anterior wedge compression fracture of L2. There is multi-level degenerative disc disease of the lumbar spine, especially l2-3, l3-4, with assoc iated retrolisthesis at these 2 levels.. IMPRESSION: Right abdominal dialysis catheter; mild blood accumulation in the lower right abdomen/pe lvis Reviewed, dictated and finalized at [facility]. Reviewed, dictated and finalized at [facility]. IMPRESSION: Right abdominal dialysis catheter; mild blood accumulation in the lower right abdomen/pelvis
--- NOTE | ~2023-01-05 | XR_ITS ---
XR chest 2V DATE: 01/05/2023 18:49 INDICATION: Fluid overload. History of CHF. TECHNIQUE: AP and lateral views COMPARISON: 05/23/2022 portable AP chest FINDINGS: Status post sternotomy and coronary bypass graft surgery. Cardiomegaly. There is calcification of the thoracic aorta and abdominal aorta. There is a right dual lumen catheter with tip overlying the right atrium. Slight blunting of the costophrenic angles may indicate minimal pleural effusions. There is mild atel ectasis at the lung bases. The lungs otherwise appear clear of infiltrate or consolidation. No pneumo thorax. Diffuse osteopenia. There is a fixation devices overlying the right humeral head. IMPRESSION: Minimal atelectasis at the lung bases. Possible very small pleural effusions Cardiomegaly Status post CABG Right internal jugular central venous catheter Reviewed, dictated and finalized at [facility].
[2023-01-05 15:52] VITALS: BP 122/53; PULSE 60; RESP 18; TEMP 36.7; O2SAT 97
--- NOTE | 2023-01-05 18:23 | ED.GENADULT ---
HPI - General Adult General Chief complaint: Unspecified <Nadia Bailey PA-C - Last Filed: 01/05/23 22:28> Stated complaint: pd dialysis pt/? building up fluid <Nadia Bailey PA-C - Last Filed: 01/05/23 22:28> Time Seen by Provider: 01/05/23 18:14 <Nadia Bailey PA-C - Last Filed: 01/05/23 22:28> Source: patient <SAULO Freeman Last Filed: 01/05/23 22:28> Mode of arrival: wheelchair <Nadia Bailey PA-C - Last Filed: 01/05/23 22:28> Limitations: no limitations <Nadia Bailey PA-C - Last Filed: 01/05/23 22:28> History of Present Illness HPI narrative: This is a 77-year-old female that presents to the emergency department for fluid overload. Reports history of ESRD. She had a PD catheter placed in the end of December. It was not working properly, so she had this replaced at the end of last week. She then had hemodialysis 2 days ago. She is supposed to go again tomorrow. She does not feel as though she will make it to dialysis. She feels as though she is building up fluid in her belly and legs. She is having some lower abdominal discomfort which she contributes to the recent procedure. Denies fever, chest pain, shortness of breath, or vomiting. <Nadia Bailey PA-C - Last Filed: 01/05/23 22:28> Related Data Home medications: Home Medications Medication Instructions Recorded Confirmed allopurinol 300 mg tablet 100 mg PO DAILY 08/31/21 11/12/22 atorvastatin 40 mg tablet 40 mg PO HS 08/31/21 11/12/22 carvedilol 25 mg tablet 12.5 mg PO BID 08/31/21 11/12/22 hydralazine 100 mg tablet 50 mg PO TID 08/31/21 11/12/22 clopidogrel 75 mg tablet 75 mg PO DAILY 01/03/22 11/12/22 aspirin 81 mg capsule 81 mg PO HS 04/26/22 11/12/22 isosorbide mononitrate 30 mg 60 mg PO DAILY 04/26/22 11/12/22 tablet,extended release 24 hr magnesium oxide 400 mg PO BID 04/26/22 11/12/22 nitroglycerin 0.4 mg sublingual 0.4 mg sublingual Q5MIN PRN Chest 04/26/22 11/12/22 tablet Pain amlodipine 10 mg tablet 10 mg PO DAILY 05/17/22 11/12/22 glimepiride 4 mg tablet 4 mg PO DAILY 05/17/22 11/12/22 pantoprazole 40 mg tablet,delayed 40 mg PO DAILY 05/17/22 11/12/22 release <Nadia Bailey PA-C - Last Filed: 01/05/23 22:28> Allergies/adverse reactions: Allergies Allergy/AdvReac Type Severity Reaction Status Date / Time gabapentin Allergy Unknown Unknown Verified 11/12/22 14:34 metronidazole [From Flagyl] Allergy Unknown Unknown Verified 11/12/22 14:34 Penicillins Allergy Unknown ITCHING Verified 11/12/22 14:34 tramadol Allergy Unknown HIVES Verified 11/12/22 14:34 hydrocodone AdvReac Mild ITCHING Verified 11/12/22 14:34 terbinafine AdvReac Mild MESSED UP Verified 11/12/22 14:34 BS AND BP triamterene AdvReac Mild ITCH Verified 11/12/22 14:34 carbamazepine AdvReac Unknown Unknown Verified 11/12/22 14:34 ciprofloxacin AdvReac Unknown Dizziness Verified 11/12/22 14:34 labetalol AdvReac Unknown Dizziness Verified 11/12/22 14:34 Sulfa (Sulfonamide AdvReac Unknown Unknown Verified 11/12/22 14:34 Antibiotics) <Nadia Bailey PA-C - Last Filed: 01/05/23 22:28> Review of Systems Review of Systems: CONSTITUTIONAL: Denies fever CARDIOVASCULAR: Reports edema. Denies chest pain RESPIRATORY: Denies dyspnea. GASTROINTESTINAL: Reports abdominal pain, nausea. Denies vomiting, or diarrhea. GENITOURINARY: Denies dysuria <SAULO Freeman Last Filed: 01/05/23 22:28> All systems reviewed & are unremarkable except as noted in HPI and below <Nadia Bailey PA-C - Last Filed: 01/05/23 22:28> [facility] Past Medical History Medical History: Medical History MASSIMO (acute kidney injury) Complex renal cyst Congestive heart failure Coronary artery disease involving coronary bypass graft of nez perce heart Diabetes Essential hypertension Heart attack 2011 History of adenomatous polyp of colon Obesity Obstructive sleep
[2023-01-05 18:32] LABS: Basophils Absolute Auto 0.1 K/mm3 (0.0-0.1); Basophils Percent Auto 0.4 % (0.2-1.2); Eosinophils Absolute Auto 0.1 K/mm3 (0-0.3); Eosinophils Percent Auto 0.9 % (0-4.4); Hematocrit 27.2 % (37.0-47.0); Hemoglobin 8.7 g/dL (12.0-15.0); Immature Granulocyte Absolute 0.08 K/mm3 (0.00-0.031); Immature Granulocyte Percent A 0.6 % (0-0.5); Lymphocytes Absolute Auto 1.73 K/mm3 (0.9-3.2); Lymphocytes Percent Auto 12.8 % (18.3-44.2); Mean Corpuscular Hemoglobin 30.4 pg (26-34); Mean Corpuscular Volume 95.1 fl (80-100); Mean Platelet Volume 8.9 fl (7.4-10.4); Monocytes Absolute Auto 1.2 K/mm3 (0.1-0.6); Monocytes Percent Auto 9.1 % (2.6-8.5); Neutrophils Absolute Auto 10.3 K/mm3 (1.3-6.7); Neutrophils Percent Auto 76.2 % (45.5-73.1); Platelet Count Result 192 k/mm3 (150-375); Red Blood Count 2.86 M/mm3 (4.2-5.4); Red Cell Distribution Width 15.9 % (11.5-14.5); White Blood Count 13.5 K/mm3 (4.5-10.0)
[2023-01-05 18:45] LABS: Alanine Aminotransferase 21 U/L (6-35); Alkaline Phosphatase 128 U/L (38-126); Anion Gap 12 mmol/L (8-16); Aspartate Amino Transferase 27 U/L (14-36); Bilirubin,Total 0.3 mg/dL (0.2-1.3); Blood Urea Nitrogen 52 mg/dL (7-17); Calcium 8.7 mg/dL (8.4-10.2); Carbon Dioxide 29 mmol/L (22-30); Chloride 90 mmol/L (98-107); Estimated Glomerular Filt Rate 6; Glucose 124 mg/dL (65-110); Lipase 97 U/L (23-300); Potassium 4.4 mmol/L (3.4-5.0); Sodium 131 mmol/L (137-145)
[2023-01-05 19:28] LABS: Appearance Urine Clear (Clear); Bacteria Urine None Seen /hpf; Bilirubin Urine Negative (Negative); Blood Urine Negative (Negative); Color Urine Dark Yellow (Yellow); Glucose Urine UA Negative (Negative); Hyaline Casts Urine Present /lpf; Ketones Urine Trace mg/dL (Negative); Leukocyte Esterase Ur Trace LEU/UL (Negative); Nitrate Urine Negative (Negative); Non Pathogenic Casts >20; Protein Urine 1+ mg/dL (Negative); RBC Urine 0-2 /hpf (0-2); Specific Grav Ur 1.031 (1.001-1.035); Squamous Epithelial Cell Urine Occasional /hpf (Few); Urobilinogen Urine 0.2 mg/dL (<2.0); WBC Urine 0-5 /hpf
[2023-01-05 19:29] LABS: Add Urine Microscopic? YES
[2023-01-05 21:13] VITALS: BP 116/48; PULSE 52; RESP 16; O2SAT 95
== END 2023-01-05 22:31 | disposition home or self-care (01) ==
PROVIDERS: Emergency Provider Physician Assistant; PCP Internal Medicine Nephrology
DX: T85.9XXA Unspecified complication of internal prosthetic device, implant and graft, initial encounter (principal); E11.22 Type 2 diabetes mellitus with diabetic chronic kidney disease; I13.2 Hypertensive heart and chronic kidney disease with heart failure and with stage 5 chronic kidney disease, or end stage renal disease; N18.6 End stage renal disease; I50.9 Heart failure, unspecified; Z99.2 Dependence on renal dialysis; Z95.1 Presence of aortocoronary bypass graft; Z95.5 Presence of coronary angioplasty implant and graft; Z87.19 Personal history of other diseases of the digestive system; Z90.710 Acquired absence of both cervix and uterus; Z90.49 Acquired absence of other specified parts of digestive tract; Z98.49 Cataract extraction status, unspecified eye; Z79.84 Long term (current) use of oral hypoglycemic drugs; Z79.82 Long term (current) use of aspirin; Y84.1 Kidney dialysis as the cause of abnormal reaction of the patient, or of later complication, without mention of misadventure at the time of the procedure; I51.7 Cardiomegaly
CPT/HCPCS: 36415; 71046; 74176; 80053; 81001; 83690; 85025; 99284

== ENCOUNTER 2023-10-21 14:14 | Emergency (ER) | payer MEDICARE, SELFPAY ==
--- NOTE | ~2023-10-21 | XR_ITS ---
EXAMINATION: XR chest 2V DATE: 10/21/2023 15:15 INDICATION: Weakness TECHNIQUE: frontal and lateral views of the chest were obtained. COMPARISON: Chest radiograph dated 01/05/2023 FINDINGS: Mild elevation the left hemidiaphragm. No focal airspace opacities, pulmonary edema, pleural effusion or pneumothorax. The cardiomediastinal silhouette is normal. Median sternotomy wires, ostial markers and mediastinal surgical clips consistent with prior coronary artery bypass grafting. There is also been prior coronary artery stenting. Atherosclerotic aorta. Moderate thoracic and moderate to severe upper lumbar spondylosis. Suture anchor at the right humeral head likely from prior rotator cuff repa ir. IMPRESSION: 1. No acute cardiopulmonary disease. Reviewed, dictated and finalized at [facility].
--- NOTE | 2023-10-21 14:27 | ECG_ITS ---
SEE SCANNED COPY FOR CONFIRMED REPORT MTDD
[2023-10-21 14:35] VITALS: BP 155/81; PULSE 82; RESP 24; TEMP 36.4; O2SAT 100
[2023-10-21 14:42] LABS: Basophils Percent Auto 0.3 % (0.2-1.2); Eosinophils Absolute Auto 0.2 K/mm3 (0-0.3); Eosinophils Percent Auto 1.3 % (0-4.4); Hematocrit 26.9 % (37.0-47.0); Hemoglobin 8.8 g/dL (12.0-15.0); Immature Granulocyte Absolute 0.07 K/mm3 (0.00-0.031); Immature Granulocyte Percent A 0.6 % (0-0.5); Lymphocytes Absolute Auto 1.56 K/mm3 (0.9-3.2); Lymphocytes Percent Auto 13.5 % (18.3-44.2); Mean Corpuscular HGB Conc 32.7 g/dl (32-36); Mean Corpuscular Hemoglobin 32.6 pg (26-34); Mean Corpuscular Volume 99.6 fl (80-100); Monocytes Absolute Auto 0.9 K/mm3 (0.1-0.6); Monocytes Percent Auto 7.5 % (2.6-8.5); Neutrophils Absolute Auto 8.9 K/mm3 (1.3-6.7); Neutrophils Percent Auto 76.8 % (45.5-73.1); Platelet Count Result 185 k/mm3 (150-375); Red Cell Distribution Width 14.5 % (11.5-14.5); White Blood Count 11.5 K/mm3 (4.5-10.0)
[2023-10-21 14:54] LABS: Alanine Aminotransferase 13 U/L (6-35); Albumin Level 3.8 g/dL (3.5-5.1); Alkaline Phosphatase 80 U/L (38-126); Anion Gap 11 mmol/L (4-12); Aspartate Amino Transferase 22 U/L (14-36); Bilirubin,Total 0.4 mg/dL (0.2-1.3); Blood Urea Nitrogen 45 mg/dL (7-17); Calcium 8.7 mg/dL (8.4-10.2); Carbon Dioxide 25 mmol/L (22-30); Chloride 95 mmol/L (98-107); Estimated Glomerular Filt Rate 7; Glucose 155 mg/dL (65-110); Potassium 3.8 mmol/L (3.4-5.0); Sodium 131 mmol/L (137-145)
--- NOTE | 2023-10-21 14:56 | ED.GENADULT ---
HPI - General Adult General Chief complaint: Unspecified <Jovani Zaragoza APRN - Last Filed: 10/21/23 15:07> Stated complaint: sent by PCP, multiple complaints <Jovani Zaragoza APRN - Last Filed: 10/21/23 15:07> Time Seen by Provider: 10/21/23 15:00 <Jovani Zaragoza APRN - Last Filed: 10/21/23 15:07> Focused HPI: Karrie is a 78-year-old female patient presenting to the emergency room today with complaints shortness of breath and left side of her body feels tight and tingling. She reports the tingling has improved since she has been in the ER. Has chronic kidney disease and does peritoneal dialysis and sees -artificial flowers dyer in [place]. Has seen Dr. Esquivel-nephrology before. Supervisor Decorating is also Dr. Julien. General: Well-developed, well nourished, in no apparent distress Head: Normocephalic, atraumatic. Cardio: Regular rate and rhythm, s1 and s2 normal, no murmur appreciated. Resp: And crackles in the lower bases, no rhonchi, wheezing or rubs. Extremities: No deformity,1+ pitting edema in lower extremities, no cyanosis, capillary refill less than 2 seconds, peripheral pulses palpable and strong. Integumentary: [place], warm, and dry, intact without lesion, no rashes. Patient screened in triage and initial orders placed. Additional care and disposition to be based upon diagnostic testing and treatment. <Jovani Zaragoza APRN - Last Filed: 10/21/23 15:07> Source: patient <Jovani ARSENIO Zaragoza - Last Filed: 10/21/23 15:07> Mode of arrival: ambulatory <Jovani Zaragoza APRN - Last Filed: 10/21/23 15:07> Limitations: no limitations <Jovani Zaragoza APRN - Last Filed: 10/21/23 15:07> History of Present Illness HPI narrative: Patient reports she has been putting increased dialysis fluid in her abdomen over last week to try to decrease toxins and that is supposed to stay inside her and so. This is been causing her increased discomfort and increased weight gain. No fevers or chills. No change in the color of her dialysis fluid. No fevers or chills. <Sunday oBne MD - Last Filed: 10/21/23 19:18> Related Data Home medications: Home Medications Medication Instructions Recorded Confirmed allopurinol 300 mg tablet 100 mg PO DAILY 08/31/21 02/24/23 atorvastatin 40 mg tablet 40 mg PO HS 08/31/21 02/24/23 carvedilol 25 mg tablet 12.5 mg PO BID 08/31/21 02/24/23 hydralazine 100 mg tablet 50 mg PO TID 08/31/21 02/24/23 clopidogrel 75 mg tablet 75 mg PO DAILY 01/03/22 02/24/23 aspirin 81 mg capsule 81 mg PO HS 04/26/22 02/24/23 isosorbide mononitrate 30 mg 60 mg PO DAILY 04/26/22 02/24/23 tablet,extended release 24 hr magnesium oxide 400 mg PO BID 04/26/22 02/24/23 nitroglycerin 0.4 mg sublingual 0.4 mg sublingual Q5MIN PRN Chest 04/26/22 02/24/23 tablet Pain amlodipine 10 mg tablet 10 mg PO DAILY 05/17/22 02/24/23 glimepiride 4 mg tablet 4 mg PO DAILY 05/17/22 02/24/23 pantoprazole 40 mg tablet,delayed 40 mg PO DAILY 05/17/22 02/24/23 release <Jovani Zaragoza, MARKET RISK MANAGER - Last Filed: 10/21/23 15:07> Allergies/adverse reactions: Allergies Allergy/AdvReac Type Severity Reaction Status Date / Time gabapentin Allergy Unknown Unknown Verified 10/21/23 18:41 metronidazole [From Flagyl] Allergy Unknown Unknown Verified 10/21/23 18:41 Penicillins Allergy Unknown ITCHING Verified 10/21/23 18:41 tramadol Allergy Unknown HIVES Verified 10/21/23 18:41 hydrocodone AdvReac Mild ITCHING Verified 10/21/23 18:41 terbinafine AdvReac Mild MESSED UP Verified 10/21/23 18:41 BS AND BP triamterene AdvReac Mild ITCH Verified 10/21/23 18:41 carbamazepine AdvReac Unknown Unknown Verified 10/21/23 18:41 ciprofloxacin AdvReac Unknown Dizziness Verified 10/21/23 18:41 labetalol AdvReac Unknown Dizziness Verified 10/21/23 18:41 Sulfa (Sulfonamide AdvReac Unknown Unknown Verified 10/21/23 18:41 Antibiotics) <Jovani Zaragoza, MARKET RISK MANAGER - Last Filed:
--- NOTE | 2023-10-21 15:10 | PC.NURSE ---
pt states they only produce urine 3-4 days a week and would like to decline a straight cath today. provider notified
[2023-10-21 15:41] LABS: NT Pro B Type Natriuretic Pept 10700 pg/mL (19.9-100)
[2023-10-21] MEDS: ACETAMINOPHEN 325 MG TABLET 650 MG PO (17:50)
[2023-10-21] MEDS: ALPRAZolam (*CRX) 0.5 MG TABLET PO (17:51)
[2023-10-21 18:45] VITALS: BP 119/40; PULSE 72; RESP 16; O2SAT 98
[2023-10-21 19:28] VITALS: BP 131/35; PULSE 70; RESP 18; O2SAT 98
== END 2023-10-21 19:52 | disposition home or self-care (01) ==
PROVIDERS: Emergency Medicine; Nurse Practitioner Family; Emergency Provider Emergency Medicine
DX: R60.9 Edema, unspecified (principal); I13.2 Hypertensive heart and chronic kidney disease with heart failure and with stage 5 chronic kidney disease, or end stage renal disease; E11.22 Type 2 diabetes mellitus with diabetic chronic kidney disease; N18.6 End stage renal disease; I50.9 Heart failure, unspecified; Z99.2 Dependence on renal dialysis; I25.2 Old myocardial infarction; E66.9 Obesity, unspecified; Z68.27 Body mass index [BMI] 27.0-27.9, adult; G47.33 Obstructive sleep apnea (adult) (pediatric); Z95.5 Presence of coronary angioplasty implant and graft; Z95.1 Presence of aortocoronary bypass graft; Z87.11 Personal history of peptic ulcer disease; Z87.01 Personal history of pneumonia (recurrent); Z87.19 Personal history of other diseases of the digestive system; Z90.710 Acquired absence of both cervix and uterus; Z90.49 Acquired absence of other specified parts of digestive tract; Z98.49 Cataract extraction status, unspecified eye; Z79.82 Long term (current) use of aspirin; Z79.84 Long term (current) use of oral hypoglycemic drugs; R94.31 Abnormal electrocardiogram [ECG] [EKG]
CPT/HCPCS: 36415; 71046; 80053; 83880; 85025; 93005; 99283; A9270

== ENCOUNTER 2024-07-16 12:52 | Inpatient (IN) | payer MEDICARE, SELFPAY ==
--- NOTE | ~2024-07-16 | XR_ITS ---
XR chest 2V DATE: 07/16/2024 13:24 INDICATION: Shortness of breath. History of CHF. TECHNIQUE: PA and lateral views COMPARISON: 10/21/2023 AP and lateral chest FINDINGS: Status post sternotomy and coronary artery bypass graft surgery. Heart size is within quang l limits. There is extensive thoracic aortic and abdominal aortic calcification. There is pulmonary vascular congestion and redistribution. There is mild prominence of the minor fiss ure consistent with subpleural edema. Bilateral Kari B lines are noted consistent with pulmonary in terstitial edema. No pleural effusion or pneumothorax is noted. Diffuse osteopenia. Suture anchor right humeral head. Dextroscoliosis of the thoracolumbar spine. Pro minent multilevel degenerative disc disease of the lumbar spine. IMPRESSION: Pulmonary vascular congestion, subpleural and pulmonary interstitial edema Reviewed, dictated and finalized at location A. [facility] IMPRESSION: Pulmonary vascular congestion, subpleural and pulmonary interstitia l edema
--- NOTE | 2024-07-16 12:55 | ECG_ITS ---
Test Date: 2024-07-16 13:12:04 Measurements Intervals [place] Rate: 66 P: 70 GA: 185 QRS: 8 QRSD: 97 T: 30 QT: 435 QTc: 456 Interpretive Statements SINUS RHYTHM POSSIBLE ANTERIOR MYOCARDIAL INFARCTION , PROBABLY OLD [30 ms Q WAVE IN V3/V4, OR R < 0.2 mV IN V4] ABNORMAL ECG No previous ECG available for comparison Electronically Signed On 07-16-2024 17:39:03 URGENT CARE TECHNICIAN by Marcio Julien M.D.
[2024-07-16 13:23] LABS: Basophils Absolute Auto 0.1 K/mm3 (0.0-0.1); Basophils Percent Auto 0.4 % (0.2-1.2); Eosinophils Absolute Auto 0.4 K/mm3 (0-0.3); Eosinophils Percent Auto 2.4 % (0-4.4); Hematocrit 33.4 % (37.0-47.0); Hemoglobin 10.5 g/dL (12.0-15.0); Immature Granulocyte Absolute 0.43 K/mm3 (0.00-0.031); Immature Granulocyte Percent A 2.5 % (0-0.5); Lymphocytes Absolute Auto 1.58 K/mm3 (0.9-3.2); Lymphocytes Percent Auto 9.3 % (18.3-44.2); Mean Corpuscular HGB Conc 31.4 g/dl (32-36); Mean Corpuscular Hemoglobin 27.9 pg (26-34); Mean Corpuscular Volume 88.8 fl (80-100); Mean Platelet Volume 9.4 fl (7.4-10.4); Monocytes Absolute Auto 1.2 K/mm3 (0.1-0.6); Monocytes Percent Auto 6.9 % (2.6-8.5); Neutrophils Absolute Auto 13.3 K/mm3 (1.3-6.7); Neutrophils Percent Auto 78.5 % (45.5-73.1); Nucleated Red Blood Cells Perc 0.3 % (0.0-0.2); Platelet Count Result 198 k/mm3 (150-375); Red Blood Count 3.76 M/mm3 (4.2-5.4); Red Cell Distribution Width 17.6 % (11.5-14.5)
[2024-07-16 13:34] LABS: Alanine Aminotransferase 19 U/L (6-35); Albumin Level 3.2 g/dL (3.5-5.1); Alkaline Phosphatase 79 U/L (38-126); Anion Gap 13 mmol/L (4-12); Aspartate Amino Transferase 20 U/L (14-36); Bilirubin,Total 0.6 mg/dL (0.2-1.3); Blood Urea Nitrogen 74 mg/dL (7-17); Carbon Dioxide 27 mmol/L (22-30); Chloride 96 mmol/L (98-107); Estimated Glomerular Filt Rate 6; Glucose 140 mg/dL (65-110); Potassium 3.7 mmol/L (3.4-5.0); Sodium 136 mmol/L (137-145)
[2024-07-16 13:38] LABS: INR 1.1; Partial Thromboplastin Time 23.4 Seconds (22.3-36.8); Prothrombin Time 14.7 Seconds (11.1-14.7)
[2024-07-16 13:45] LABS: NT Pro B Type Natriuretic Pept > 30000 pg/mL (19.9-100); Troponin I < 0.012 ng/mL (0.000-0.034)
[2024-07-16 13:47] VITALS: BP 125/58; PULSE 66; RESP 19; TEMP 36.6; O2SAT 97
--- NOTE | 2024-07-16 16:22 | ED_ITS ---
HPI - SOB/Dyspnea General Chief Complaint: Shortness of Breath/Dyspnea <Nadia Bailey PA-C - Last Filed: 07/17/24 16:30> Stated Complaint: SHORT OF BREATH,HX CHF SINUS INFECTION <Nadia Bailey PA-C - Last Filed: 07/17/24 16:30> Time Seen by Provider: 07/16/24 16:22 <Nadia Bailey PA-C - Last Filed: 07/17/24 16:30> Focused HPI: This is a 78 year old female that presents to the ER for cough, fluid overload, difficulty breathing. Reports this has been ongoing over the last couple of weeks. She does peritoneal dialysis. Is having difficulty getting fluid off. Reports she just finished an antibiotic today for a sinus infection. She is also taking Furosemide 100mg twice daily. Denies fever, chest pain. GENERAL: Chronically ill-appearing, well-nourished, and in no acute distress. HEAD: Normocephalic, atraumatic. CHEST: Clear to auscultation. ?No respiratory distress. HEART: Regular rate and rhythm.? NEURO: ?Alert and oriented x3. Patient screened in triage and initial orders placed.? ?Additional care and disposition to be based upon?diagnostic testing and treatment. <Nadia Bailey PA-C - Last Filed: 07/17/24 16:30> History of Present Illness HPI Narrative: I agree with the above HPI Patient follows up with a paper supervisor in [place], patient wishes to switch to Dr. Esquivel. <Ezio Reynolds MD - Last Filed: 07/17/24 06:41> Related Data Home Medications: Home Medications ?Medication ?Instructions ?Recorded ?Confirmed ?Last Taken ?Type allopurinol 300 mg tablet 100 mg PO DAILY 08/31/21 07/17/24 07/16/24 09:30 History atorvastatin 40 mg tablet 40 mg PO HS 08/31/21 07/17/24 07/15/24 19:30 History carvedilol 25 mg tablet 25 mg PO BID 08/31/21 07/17/24 07/16/24 09:30 History hydralazine 100 mg tablet 100 mg PO TID 08/31/21 07/17/24 07/16/24 12:00 History clopidogrel 75 mg tablet 75 mg PO DAILY 01/03/22 07/17/24 07/16/24 09:30 History aspirin 81 mg capsule 81 mg PO HS 04/26/22 07/17/24 07/15/24 19:30 History isosorbide mononitrate 30 mg 30 mg PO BID 04/26/22 07/17/24 07/16/24 09:30 History tablet,extended release 24 hr magnesium oxide 400 mg PO BID 04/26/22 07/17/24 07/16/24 09:30 History nitroglycerin 0.4 mg sublingual 0.4 mg sublingual Q5MIN PRN Chest 04/26/22 07/17/24 Unknown History tablet Pain amlodipine 10 mg tablet 10 mg PO DAILY 05/17/22 07/17/24 07/16/24 09:30 History glimepiride 4 mg tablet 4 mg PO BID 05/17/22 07/17/24 07/16/24 09:30 History pantoprazole 40 mg tablet,delayed 40 mg PO DAILY 05/17/22 07/17/24 07/16/24 09:30 History release albuterol sulfate 90 mcg/actuation 2 puff inhalation Q6H PRN Cough or 07/17/24 07/17/24 07/16/24 21:00 History aerosol inhaler SOB. azithromycin 250 mg tablet 250 mg PO DAILY 07/17/24 07/17/24 07/16/24 09:30 History blood sugar diagnostic (True 07/17/24 07/17/24 Unknown History Metrix Glucose Test Strip) cholecalciferol (vitamin D3) 50 6,000 unit PO DAILY 07/17/24 07/17/24 07/16/24 09:30 History mcg (2,000 unit) capsule (Vitamin D3) furosemide 20 mg tablet 20 mg PO BID 07/17/24 07/17/24 07/16/24 09:30 History furosemide 80 mg tablet 80 mg PO BID 07/17/24 07/17/24 07/16/24 09:30 History lancets 30 gauge (Ultra Thin 07/17/24 07/17/24 Unknown History Lancets) potassium chloride 10 mEq 10 meq PO DAILY 07/17/24 07/17/24 07/16/24 09:30 History tablet,extended release vitamin B comp no.3-folic acid 1 1 tablet PO DAILY 07/17/24 07/17/24 07/16/24 09:30 History mg-vit C 60 mg-biotin 300 mcg tablet ([facility]) <Nadia Bailey PA-C - Last Filed: 07/17/24 16:30> Allergies/Adverse Reactions: Allergies Allergy/AdvReac Type Severity Reaction Status Date / Time metronidazole (From Flagyl) Allergy Unknown Unknown Verified 07/17/24 01:33 Penicillins Allergy Unknown ITCHING Verified 07/17/24 01:33 tramadol Allergy Unknown HIVES Verified 07/17/24 01:33 hydrocodone AdvReac Mild ITCHING Verified 07/17/24 01:33 triamterene AdvReac Mild ITCH Verified 07/17/24 01:33 carbamazepine AdvReac Unknown Unknown Verified 07/17/24 01:33 ciprofloxacin AdvReac Unknown Dizziness Verified 07/17/24 01:33 gabapentin AdvReac Unknown Diarrhea Verified 07/17/24 01:33 iohexol (From contrast - CT, AdvReac Unknown Other Verified 07/17/24 01:34 X-RAY) labetalol AdvReac Unknown Dizziness Verified 07/17/24 01:33 Sulfa (Sulfonamide AdvReac Unknown Unknown Verified 07/17/24 01:33 Antibiotics) terbinafine AdvReac Unknown Other Verified 07/17/24 01:33 clindamycin AdvReac Diarrhea Verified 07/17/24 01:33 <Nadia Bailey PA-C - Last Filed: 07/17/24 16:30> Review of Systems 2 Review of Systems: All systems reviewed & are unremarkable except as noted in HPI and below <Ezio Reynolds MD - Last Filed: 07/17/24 06:41> [facility] Past Medical History Medical History: Medical History Complex renal cyst Essential hypertension Volume overload Coronary artery 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 Obstructive sleep apnea History of adenomatous polyp of colon Obesity PUD (peptic ulcer disease) Heart attack 2012 Congestive heart failure Pneumonia MASSIMO (acute kidney injury) Diabetes <Nadia Bailey PA-C - Last Filed: 07/17/24 16:30> Surgical History Surgical History: Surgical History Hx of CABG 2012 with [place] to the Left anterior descending, SVG to the diagonal, SVG to the ramus and SVG to the PDA) H/O shoulder surgery on the right Hx of cataract extraction History of bladder surgery History of appendectomy History of rectal polypectomy H/O heart artery stent 2 H/O right heart catheterization 2 History of tonsillectomy History of cholecystectomy H/O total hysterectomy <Nadia Bailey PA-C - Last Filed: 07/17/24 16:30> Family History Family History: Family History Mother Diabetes mellitus Hypertension Acute myocardial infarction Father Cancer of bone Sibling <Nadia Bailey PA-C - Last Filed: 07/17/24 16:30> Social History Social History: Social History Social History: the patient lives with her who is the durable power criminal defense attorney for healthcare. 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 She is a lifelong nonsmoker. She does not use any alcohol marijuana or illicit drugs. Code status full code Smoking status: Never smoker Second hand tobacco smoke exposure: Yes Alcohol intake: never Substance use: never Substance use type: does not use Do You Feel Safe in your Home?: Yes Lack of Transportation: No Lack of Food: Never True Current Housing: I Have Housing Concerned About Future Housing: No Difficulty Paying Gas/Electric Bills: No Difficulty Paying for Meds: No Currently Unemployed: No Education: High School Diploma/GED Difficulty w/ Childcare or Family Care: No Living arrangements: with family Gender identity (if verbalized by the patient): Female Spiritual care concerns: No <Nadia Bailey PA-C - Last Filed: 07/17/24 16:30> Exam 2 Narrative: APPEARANCE: Uncomfortable appearing HEAD: normocephalic, atraumatic. EYES: PERRLA/EOMI, conjunctivae clear. NOSE: Normal no drainage EARS:TMS clear with good light reflex. THROAT: Pharynx clear, no exudate. NECK: Supple. No adenopathy, no masses. RESPIRATORY: Airway patent, respirations nonlabored. Clear to auscultation bilaterally, no rales, rhonchi, wheezing. CARDIOVASCULAR: Regular rate and rhythm without murmurs rubs or gallops. ABDOMINAL: Soft, nontender, nondistended, normal bowel sounds MUSCULOSKELETAL: Moves all extremities. Strength/ROM intact, No edema, No calf tenderness. NEURO: Alert. Cranial nerves II through XII intact. Grossly intact SKIN: Warm, dry. Normal Color <Ezio Reynolds MD - Last Filed: 07/17/24 06:41> Course Vital Signs Vital signs: Vital Signs Temperature 97.9 F 07/16/24 13:47 Pulse Rate 66 07/16/24 13:47 Respiratory Rate 19 07/16/24 13:47 Blood Pressure 125/58 L 07/16/24 13:47 Pulse Oximetry 97 07/16/24 13:47 Oxygen Delivery Room Air 07/16/24 13:47 Temperature 98.1 F 07/17/24 16:26 Pulse Rate 65 07/17/24 16:26 Respiratory Rate 18 07/17/24 16:26 Blood Pressure 145/41 H 07/17/24 16:26 Pulse Oximetry 98 07/17/24 16:26 Oxygen Delivery Room Air 07/17/24 12:00 Fraction of Inspired Oxygen 21 07/17/24 04:30 <Nadia Bailey PA-C - Last Filed: 07/17/24 16:30> Vital Signs Temperature 97.9 F 07/16/24 13:47 Pulse Rate 66 07/16/24 13:47 Respiratory Rate 19 07/16/24 13:47 Blood Pressure 125/58 L 07/16/24 13:47 Pulse Oximetry 97 07/16/24 13:47 Oxygen Delivery Room Air 07/16/24 13:47 Temperature 98.1 F 07/17/24 16:26 Pulse Rate 65 07/17/24 16:26 Respiratory Rate 18 07/17/24 16:26 Blood Pressure 145/41 H 07/17/24 16:26 Pulse Oximetry 98 07/17/24 16:26 Oxygen Delivery Room Air 07/17/24 12:00 Fraction of Inspired Oxygen 21 07/17/24 04:30 <Ezio Reynolds MD - Last Filed: 07/17/24 06:41> MDM - SOB/Dyspnea MDM Narrative Medical decision making narrative: 78-year-old female with end-stage renal disease on peritoneal dialysis present to the emergency department for evaluation for fluid overload and worsening shortness of breath. Patient states over the course of the last few days she has had worsening shortness of breath and exertional fatigue over the last few days. Patient has had worsening lower extremity edema and has been unable to get off the fluid using peritoneal dialysis. Patient is afebrile but does have a leukocytosis of 17. Patient has a hemoglobin of 10.5. INR is 1.1. Patient has a BUN of 74 which is higher than her typical baseline. Patient's creatinine is 6.39. Patient's troponin is not elevated and patient was negative influenza RSV and for COVID. Chest x-ray shows pulmonary vascular congestion, subpleural and pulmonary interstitial edema. I discussed case with Nephrology and patient will be admitted for potential dialysis. Discussed case with the hospitalist and she recommended placing a surgery consult for port placement. Patient family were updated on the results of workup and plan for admission <Ezio Reynolds MD - Last Filed: 07/17/24 06:41> Differential Diagnosis Differential diagnosis: Likely acute exacerbation of chronic obstructive airways disease, congestive heart failure and other <Ezio Reynolds MD - Last Filed: 07/17/24 06:41> Lab Data Attestation: I reviewed the patient's lab results. <Ezio Reynolds MD - Last Filed: 07/17/24 06:41> Result diagrams: 07/17/24 03:24 07/17/24 03:24 <Nadia Bailey PA-C - Last Filed: 07/17/24 16:30> Labs: Lab Results 07/16/24 07/16/24 07/16/24 Range/Units 13:14 18:28 20:35 WBC 17.0 H (4.5-10.0) K/mm3 RBC 3.76 L (4.2-5.4) M/mm3 Hgb 10.5 L (12.0-15.0) g/dL Hct 33.4 L (37.0-47.0) % MCV 88.8 (80-100) fl MCH 27.9 (26-34) pg MCHC 31.4 L (32-36) g/dl RDW 17.6 H (11.5-14.5) % Plt Count 198 (150-375) k/mm3 MPV 9.4 (7.4-10.4) fl Immature Gran % (Auto) 2.5 H (0-0.5) % Neut % (Auto) 78.5 H (45.5-73.1) % Lymph % (Auto) 9.3 L (18.3-44.2) % Bond % (Auto) 6.9 (2.6-8.5) % Eos % (Auto) 2.4 (0-4.4) % Baso % (Auto) 0.4 (0.2-1.2) % Lymph # (Auto) 1.58 (0.9-3.2) K/mm3 Bond # (Auto) 1.2 H (0.1-0.6) K/mm3 Eos # (Auto) 0.4 H (0-0.3) K/mm3 Baso # (Auto) 0.1 (0.0-0.1) K/mm3 Abs Immat Gran (auto) 0.43 H (0.00-0.031) K/mm3 Absolute Neuts (auto) 13.3 H (1.3-6.7) K/mm3 Absolute Nucleated RBC 0.050 H (0.0-0.012) K/mm3 Nucleated RBC % 0.3 H (0.0-0.2) % PT 14.7 (11.1-14.7) Seconds INR 1.1 APTT 23.4 (22.3-36.8) Seconds Sodium 136 L (137-145) mmol/L Potassium 3.7 (3.4-5.0) mmol/L Chloride 96 L (98-107) mmol/L Carbon Dioxide 27 (22-30) mmol/L Anion Gap 13 H (4-12) mmol/L BUN 74 H D (7-17) mg/dL Creatinine 6.39 H (0.7-1.0) mg/dL Estim Creat Clear Calc Not Reportable Estimated GFR 6 L (59 - ) Glucose 140 H (65-110) mg/dL POC Capillary Glucose 79 (65-105) mg/dl Calcium 8.0 L (8.4-10.2) mg/dL Total Bilirubin 0.6 (0.2-1.3) mg/dL AST 20 (14-36) U/L ALT 19 (6-35) U/L Alkaline Phosphatase 79 (38-126) U/L Troponin I < 0.012 (0.000-0.034) ng/mL NT-Pro-B Natriuret Pep > 36903 H (19.9-100) pg/mL Total Protein 6.0 L (6.3-8.2) g/dL Albumin 3.2 L (3.5-5.1) g/dL Influenza A (RT-PCR) Negative (Negative) Influenza B (RT-PCR) Negative (Negative) RSV (RT-PCR) Negative (Negative) SARS-CoV-2 RNA (RT-PCR) Negative (Negative) <Nadia Bailey PA-C - Last Filed: 07/17/24 16:30> Lab Results 07/16/24 07/16/24 07/16/24 Range/Units 13:14 18:28 20:35 WBC 17.0 H (4.5-10.0) K/mm3 RBC 3.76 L (4.2-5.4) M/mm3 Hgb 10.5 L (12.0-15.0) g/dL Hct 33.4 L (37.0-47.0) % MCV 88.8 (80-100) fl MCH 27.9 (26-34) pg MCHC 31.4 L (32-36) g/dl RDW 17.6 H (11.5-14.5) % Plt Count 198 (150-375) k/mm3 MPV 9.4 (7.4-10.4) fl Immature Gran % (Auto) 2.5 H (0-0.5) % Neut % (Auto) 78.5 H (45.5-73.1) % Lymph % (Auto) 9.3 L (18.3-44.2) % Bond % (Auto) 6.9 (2.6-8.5) % Eos % (Auto) 2.4 (0-4.4) % Baso % (Auto) 0.4 (0.2-1.2) % Lymph # (Auto) 1.58 (0.9-3.2) K/mm3 Bond # (Auto) 1.2 H (0.1-0.6) K/mm3 Eos # (Auto) 0.4 H (0-0.3) K/mm3 Baso # (Auto) 0.1 (0.0-0.1) K/mm3 Abs Immat Gran (auto) 0.43 H (0.00-0.031) K/mm3 Absolute Neuts (auto) 13.3 H (1.3-6.7) K/mm3 Absolute Nucleated RBC 0.050 H (0.0-0.012) K/mm3 Nucleated RBC % 0.3 H (0.0-0.2) % PT 14.7 (11.1-14.7) Seconds INR 1.1 APTT 23.4 (22.3-36.8) Seconds Sodium 136 L (137-145) mmol/L Potassium 3.7 (3.4-5.0) mmol/L Chloride 96 L (98-107) mmol/L Carbon Dioxide 27 (22-30) mmol/L Anion Gap 13 H (4-12) mmol/L BUN 74 H D (7-17) mg/dL Creatinine 6.39 H (0.7-1.0) mg/dL Estim Creat Clear Calc Not Reportable Estimated GFR 6 L (59 - ) Glucose 140 H (65-110) mg/dL POC Capillary Glucose 79 (65-105) mg/dl Calcium 8.0 L (8.4-10.2) mg/dL Total Bilirubin 0.6 (0.2-1.3) mg/dL AST 20 (14-36) U/L ALT 19 (6-35) U/L Alkaline Phosphatase 79 (38-126) U/L Troponin I < 0.012 (0.000-0.034) ng/mL NT-Pro-B Natriuret Pep > 64469 H (19.9-100) pg/mL Total Protein 6.0 L (6.3-8.2) g/dL Albumin 3.2 L (3.5-5.1) g/dL Influenza A (RT-PCR) Negative (Negative) Influenza B (RT-PCR) Negative (Negative) RSV (RT-PCR) Negative (Negative) SARS-CoV-2 RNA (RT-PCR) Negative (Negative) <Ezio Reynolds MD - Last Filed: 07/17/24 06:41> Imaging Data Radiologist's impression: Impressions Chest X-Ray 07/16/24 13:26 IMPRESSION: Pulmonary vascular congestion, subpleural and pulmonary interstitial edema <Ezio Reynolds MD - Last Filed: 07/17/24 06:41> Critical Care Time Critical Care Time Critical Care Time: No <Nadia Bailey PA-C - Last Filed: 07/17/24 16:30> Discharge Plan Discharge Clinical Impression: Volume overload Qualifiers: Hypervolemia type: unspecified Qualified Code(s): E87.70 - Fluid overload, unspecified <Nadia Bailey PA-C - Last Filed: 07/17/24 16:30> Patient Disposition: Still a Patient <Nadia Bailey PA-C - Last Filed: 07/17/24 16:30> Condition: Stable <Nadia Bailey PA-C - Last Filed: 07/17/24 16:30>
[2024-07-16 18:37] VITALS: BP 157/86; PULSE 70; PULSE 88; RESP 16; O2SAT 100
[2024-07-16 19:11] LABS: Influenza A QL RT-PCR Negative (Negative); Influenza B QL RT-PCR Negative (Negative); RSV RNA, RT-PCR Negative (Negative); SARS-CoV-2 RNA PCR Negative (Negative)
[2024-07-16 20:07] VITALS: O2SAT 100
[2024-07-16 20:40] LABS: Glucose Point of Care 79 mg/dl (65-105)
--- NOTE | 2024-07-16 20:45 | PM.IMHP ---
H&P: HPI History of Present Illness Date/Time: 07/16/24 20:45 Chief Complaint: Shortness of breath Narrative: This is a 78-year-old female with past medical history significant for end-stage renal disease on peritoneal dialysis, type diabetes mellitus, coronary artery disease, coronary artery bypass graft, obstructive sleep apnea, obesity. Patient presents to the emergency room due to shortness of breath, completed course of antibiotics for sinusitis. Denies any fevers, rigors, chills, nausea, vomiting, diarrhea. Shortness of breath is at exertion has some bilateral lower extremity edema. Patient having difficulty removing fluid with peritoneal dialysis. XR chest 2V DATE: 07/16/2024 13:24 INDICATION: Shortness of breath. History of CHF. TECHNIQUE: PA and lateral views COMPARISON: 10/21/2023 AP and lateral chest FINDINGS: Status post sternotomy and coronary artery bypass graft surgery. Heart size is within normal limits. There is extensive thoracic aortic and abdominal aortic calcification. There is pulmonary vascular congestion and redistribution. There is mild prominence of the minor fissure consistent with subpleural edema. Bilateral Kari B lines are noted consistent with pulmonary interstitial edema. No pleural effusion or pneumothorax is noted. Diffuse osteopenia. Suture anchor right humeral head. Dextroscoliosis of the thoracolumbar spine. Prominent multilevel degenerative disc disease of the lumbar spine. IMPRESSION: Pulmonary vascular congestion, subpleural and pulmonary interstitial edema Review of Systems Review of Systems: Shortness of breath [facility] Past Medical History Medical History (Updated 07/17/24 @ 02:27 by Dipti Fung MD) Pneumonia Complex renal cyst Essential hypertension Volume overload Coronary artery disease involving coronary bypass graft of [place] heart Obstructive sleep apnea History of adenomatous polyp of colon Obesity PUD (peptic ulcer disease) Heart attack 2012 Congestive heart failure MASSIMO (acute kidney injury) Diabetes Surgical History Surgical History Hx of CABG 2011 with gresham to the Left anterior descending, SVG to the diagonal, SVG to the ramus and SVG to the PDA) H/O shoulder surgery on the right Hx of cataract extraction History of bladder surgery History of appendectomy History of rectal polypectomy H/O heart artery stent 2 H/O right heart catheterization 2 History of tonsillectomy History of cholecystectomy H/O total hysterectomy Family History Family History Mother Diabetes mellitus Hypertension Acute myocardial infarction Father Cancer of bone Sibling Social History Social History Social History: the patient lives with her who is the durable power assistant county attorney for healthcare. 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 She is a lifelong nonsmoker. She does not use any alcohol marijuana or illicit drugs. Code status full code Smoking status: Never smoker Second hand tobacco smoke exposure: Yes Alcohol intake: never Substance use: never Substance use type: does not use Do You Feel Safe in your Home?: Yes Lack of Transportation: No Lack of Food: Never True Current Housing: I Have Housing Concerned About Future Housing: No Difficulty Paying Gas/Electric Bills: No Difficulty Paying for Meds: No Currently Unemployed: No Education: High School Diploma/GED Difficulty w/ Childcare or Family Care: No Living arrangements: with family Gender identity (if verbalized by the patient): Female Spiritual care concerns: No Meds Home Medications and Allergies Home Medications ?Medication ?Instructions ?Recorded ?Confirmed ?Type allopurinol 300 mg tablet 100 mg PO DAILY 08/31/21 07/17/24 History atorvastatin 40 mg tablet 40 mg PO HS 08/31/21 07/17/24 History carvedilol 25 mg tablet 25 mg PO BID 08/31/21 07/17/24 History hydralazine 100 mg tablet 100 mg PO TID 08/31/21 07/17/24 History clopidogrel 75 mg tablet 75 mg PO DAILY 01/03/22 07/17/24 History aspirin 81 mg capsule 81 mg PO HS 04/26/22 07/17/24 History isosorbide mononitrate 30 mg 30 mg PO BID 04/26/22 07/17/24 History tablet,extended release 24 hr magnesium oxide 400 mg PO BID 04/26/22 07/17/24 History nitroglycerin 0.4 mg sublingual 0.4 mg sublingual Q5MIN PRN Chest 04/26/22 07/17/24 History tablet Pain amlodipine 10 mg tablet 10 mg PO DAILY 05/17/22 07/17/24 History glimepiride 4 mg tablet 4 mg PO BID 05/17/22 07/17/24 History pantoprazole 40 mg tablet,delayed 40 mg PO DAILY 05/17/22 07/17/24 History release albuterol sulfate 90 mcg/actuation 2 puff inhalation Q6H PRN Cough or 07/17/24 07/17/24 History aerosol inhaler SOB. azithromycin 250 mg tablet 250 mg PO DAILY 07/17/24 07/17/24 History blood sugar diagnostic (True 07/17/24 07/17/24 History Metrix Glucose Test Strip) cholecalciferol (vitamin D3) 50 6,000 unit PO DAILY 07/17/24 07/17/24 History mcg (2,000 unit) capsule (Vitamin D3) furosemide 20 mg tablet 20 mg PO BID 07/17/24 07/17/24 History furosemide 80 mg tablet 80 mg PO BID 07/17/24 07/17/24 History lancets 30 gauge (Ultra Thin 07/17/24 07/17/24 History Lancets) potassium chloride 10 mEq 10 meq PO DAILY 07/17/24 07/17/24 History tablet,extended release vitamin B comp no.3-folic acid 1 1 tablet PO DAILY 07/17/24 07/17/24 History mg-vit C 60 mg-biotin 300 mcg tablet ([facility]) Allergies Allergy/AdvReac Type Severity Reaction Status Date / Time metronidazole (From Flagyl) Allergy Unknown Unknown Verified 07/17/24 01:33 Penicillins Allergy Unknown ITCHING Verified 07/17/24 01:33 tramadol Allergy Unknown HIVES Verified 07/17/24 01:33 hydrocodone AdvReac Mild ITCHING Verified 07/17/24 01:33 triamterene AdvReac Mild ITCH Verified 07/17/24 01:33 carbamazepine AdvReac Unknown Unknown Verified 07/17/24 01:33 ciprofloxacin AdvReac Unknown Dizziness Verified 07/17/24 01:33 gabapentin AdvReac Unknown Diarrhea Verified 07/17/24 01:33 iohexol (From contrast - CT, AdvReac Unknown Other Verified 07/17/24 01:34 X-RAY) labetalol AdvReac Unknown Dizziness Verified 07/17/24 01:33 Sulfa (Sulfonamide AdvReac Unknown Unknown Verified 07/17/24 01:33 Antibiotics) terbinafine AdvReac Unknown Other Verified 07/17/24 01:33 clindamycin AdvReac Diarrhea Verified 07/17/24 01:33 Vital Signs Vital Signs - 24 hr 07/16/24 13:47 07/16/24 18:37 07/16/24 18:37 Temperature 97.9 F Pulse Rate 66 70 88 Respiratory Rate 19 16 Blood Pressure 125/58 L 157/86 H Pulse Oximetry 97 100 Oxygen Delivery Room Air 07/16/24 20:07 Temperature Pulse Rate Respiratory Rate Blood Pressure Pulse Oximetry 100 Oxygen Delivery Room Air Exam Narrative: Patient is laying in a stretcher Const: General: comfortable, no acute distress, well developed, alert, awake, ill appearing chronically and edematous Nutritional Appearance: edematous Orientation/consciousness: patient oriented x3 HENMT: Head: normal to inspection, normocephalic and atraumatic Ears: hearing grossly normal bilaterally Face/Nose/Sinus: normal facial exam Face and sinus: normal facial exam Eyes: General: appearance normal, both eyes and all related structures Pupils: Equal, round and reactive pupils present EOM: EOMs intact bilaterally Neck: Neck: full ROM, no lymphadenopathy and no JVD Thyroid: thyroid normal Lymphatic: no lymphadenopathy noted Resp: Effort & Inspection: normal respiratory effort and able to speak in complete sentences Auscultation: crackles and diminished lung sounds Cardio: Jugular venous distension: no JVD Rate: regular rate Rhythm: regular rhythm Heart sounds: S1 normal heart sound present and S2 normal heart sound present GI: Inspection: Pannus present and obesity GI Palp: Yes Soft to palpation and Yes No hepatosplenomegaly present Other: Peritoneal dialysis catheter in place : General: Yes deferred Skin: Rashes: no rashes Wounds: no wounds Neuro: General: patient oriented x3 and CN's II-XI intact bilaterally Cranial nerves: Yes CN's II-XII intact bilaterally and Yes Equal, round and reactive pupils present Cognition (Neuro): normal cognition Speech: normal speech Gait exam (Neuro): Normal gait present Motor exam (neuro): 5/5 motor strength present throughout Extrem: General: normal to inspection, full ROM, no joint enlargement and no pedal edema Other: Bilateral lower extremity edema 1+ H&P: Results Labs Labs: Short CBC 07/16/24 Range/Units 13:14 WBC 17.0 H (4.5-10.0) K/mm3 Hgb 10.5 L (12.0-15.0) g/dL Hct 33.4 L (37.0-47.0) % Plt Count 198 (150-375) k/mm3 BMP 07/16/24 13:14 Sodium 136 L Potassium 3.7 Chloride 96 L Carbon Dioxide 27 BUN 74 H D Creatinine 6.39 H Glucose 140 H Calcium 8.0 L Cardiac Enzymes 07/16/24 Range/Units 13:14 Troponin I < 0.012 (0.000-0.034) ng/mL Liver Function 07/16/24 Range/Units 13:14 Total Bilirubin 0.6 (0.2-1.3) mg/dL AST 20 (14-36) U/L ALT 19 (6-35) U/L Alkaline Phosphatase 79 (38-126) U/L Albumin 3.2 L (3.5-5.1) g/dL Assessment and Plan Assessment and plan (1) End stage renal disease: Code(s): N18.6 - End stage renal disease Status: Chronic Assessment and Plan: On peritoneal dialysis Will likely need hemodialysis Nephrology consult (2) HTN (hypertension): Code(s): I10 - Essential (primary) hypertension Status: Chronic Assessment and Plan: Resume home meds (3) Chronic diastolic CHF (congestive heart failure): Code(s): I50.32 - Chronic diastolic (congestive) heart failure Status: Acute Assessment and Plan: Daily intake and output Patient is fluid overloaded (4) Obstructive sleep apnea: Code(s): G47.33 - Obstructive sleep apnea (adult) (pediatric) Status: Acute Assessment and Plan: CPAP at nighttime (5) Gout: Code(s): M10.9 - Gout, unspecified Status: Acute Assessment and Plan: Stable Hospitalist [facility] Advance Care Plan I have confirmed that the patient's Advanced Care Plan is present, code status is documented, or surrogate decision maker is listed in patient medical record.: Yes Medication Reconciliation I have utilized all available resources to obtain, update and review the patients current medications (includes all prescriptions, OTC, herbals, cannabis, and nutritional supplements).: Yes
[2024-07-16 21:11] LABS: Glucose Point of Care 103 mg/dl (65-105)
[2024-07-16 21:58] VITALS: BP 133/98; PULSE 70; RESP 18; O2SAT 100
[2024-07-17] VITALS (24 sets, daily range): BP systolic 123–155; BP diastolic 40–97; PULSE 55–72; RESP 18–21; TEMP 36.2–36.9; O2SAT 96–100; BMI 28.7
--- NOTE | 2024-07-17 00:21 | ADMGEN ---
This patient, Leidy Voss, was admitted to IMU Room 212-01 on 07/17/24 at 0010. Patient/family oriented to hospital policies and general routines including ID bracelet, bed and alarms, visiting hours, pain management, procedures, bathroom and other care routines, personal items, smoking policy, room service/diet, and visiting hours. Information on how to activate the Rapid Response Team has been discussed. Patient/Family are encouraged to report perceived risks to care and to ask questions if they do not understand what they are told or what they should do.
[2024-07-17 00:51] LABS: Glucose Point of Care 60 mg/dl (65-105)
[2024-07-17] MEDS: DEXTROSE 50% 25 GM/50 ML SYRINGE IV PUSH ×2 (02:29→08:20)
[2024-07-17 02:46] LABS: Glucose Point of Care 158 mg/dl (65-105)
[2024-07-17 03:34] LABS: Basophils Percent Auto 0.2 % (0.2-1.2); Eosinophils Absolute Auto 0.4 K/mm3 (0-0.3); Eosinophils Percent Auto 2.5 % (0-4.4); Hemoglobin 10.9 g/dL (12.0-15.0); Immature Granulocyte Absolute 0.27 K/mm3 (0.00-0.031); Immature Granulocyte Percent A 1.6 % (0-0.5); Lymphocytes Absolute Auto 1.74 K/mm3 (0.9-3.2); Lymphocytes Percent Auto 10.4 % (18.3-44.2); Mean Corpuscular HGB Conc 32.1 g/dl (32-36); Mean Corpuscular Hemoglobin 28.8 pg (26-34); Mean Corpuscular Volume 89.7 fl (80-100); Mean Platelet Volume 9.3 fl (7.4-10.4); Monocytes Absolute Auto 1.1 K/mm3 (0.1-0.6); Monocytes Percent Auto 6.7 % (2.6-8.5); Neutrophils Absolute Auto 13.1 K/mm3 (1.3-6.7); Neutrophils Percent Auto 78.6 % (45.5-73.1); Nucleated Red Blood Cells Perc 0.1 % (0.0-0.2); Platelet Count Result 195 k/mm3 (150-375); Red Blood Count 3.79 M/mm3 (4.2-5.4); Red Cell Distribution Width 17.9 % (11.5-14.5); White Blood Count 16.7 K/mm3 (4.5-10.0)
[2024-07-17 03:45] LABS: Prothrombin Time 13.9 Seconds (11.1-14.7)
[2024-07-17 03:51] LABS: Alanine Aminotransferase 18 U/L (6-35); Albumin Level 3.2 g/dL (3.5-5.1); Alkaline Phosphatase 80 U/L (38-126); Anion Gap 13 mmol/L (4-12); Aspartate Amino Transferase 21 U/L (14-36); Bilirubin,Total 0.6 mg/dL (0.2-1.3); Blood Urea Nitrogen 78 mg/dL (7-17); Calcium 7.8 mg/dL (8.4-10.2); Carbon Dioxide 25 mmol/L (22-30); Chloride 97 mmol/L (98-107); Estimated Glomerular Filt Rate 6; Glucose 111 mg/dL (65-110); Magnesium 1.7 mg/dL (1.6-2.3); Phosphorus 4.9 mg/dL (2.5-4.5); Potassium 3.5 mmol/L (3.4-5.0); Sodium 135 mmol/L (137-145)
[2024-07-17 03:55] LABS: MRSA (PCR) NOT DETECTED (NOT DETECTE)
[2024-07-17 04:22] LABS: Hepatitis B Surface Antigen Negative (Negative)
[2024-07-17 04:42] LABS: Hepatitis B Surface Anti Res Positive
[2024-07-17 08:14] LABS: Glucose Point of Care 49 mg/dl (65-105)
[2024-07-17 08:53] LABS: Glucose Point of Care 120 mg/dl (65-105)
[2024-07-17] MEDS: FUROSEMIDE 80 MG TABLET PO (10:18)
[2024-07-17] MEDS: PANTOPRAZOLE 40 MG TABLET PO (10:18)
[2024-07-17] MEDS: ISOSORBIDE MONONITRATE 30 MG TAB.ER.24H PO ×2 (10:18→20:38)
[2024-07-17] MEDS: MAGNESIUM OXIDE 400 MG TABLET PO ×2 (10:18→17:24)
[2024-07-17] MEDS: allopurinoL 100 MG TABLET PO (10:18)
[2024-07-17] MEDS: CLOPIDOGREL BISULFATE 75 MG TABLET PO (10:19)
[2024-07-17] MEDS: carvediloL 25 MG TABLET PO ×2 (10:19→17:24)
[2024-07-17] MEDS: hydrALAZINE HCL 50 MG TABLET 100 MG PO ×3 (10:19→17:25)
[2024-07-17] MEDS: amLODIPine BESYLATE 10 MG TABLET PO (10:19)
--- NOTE | 2024-07-17 10:28 | P.CONNP_ITS ---
Assessment and Plan Assessment and plan (1) End stage renal disease: Code(s): N18.6 - End stage renal disease Status: Chronic Assessment and Plan: Patient is on peritoneal dialysis. The patient has volume overload. It looks like she is not getting fluid off very well with the peritoneal dialysis. She says that her KT/V is good so I think the dialysis is adequate for clearance of poisons but for some reason the fluid is not coming off. I think she would be better served by changing the outpatient regimen to the same at night plus a green bag during the day but draining at noon so that she does not resorptive. This would go a long way toward keeping the fluid off. In addition the patient does frequently have troubles with her machine. She says she is not constipated. For now, however, use red bags today and then also tonight and will see how the numbers look tomorrow. I do not think she needs to switch to hemodialysis at this point. (2) Volume overload: Code(s): E87.70 - Fluid overload, unspecified Status: Acute Assessment and Plan: The patient has fluid overload. She does have diastolic dysfunction, mild pulmonary hypertension, and [id number] mitral regurgitation which may add to some of the issues. All that is based on an echo from 2021. Will repeat an echo tomorrow and see how this looks. In the meantime will use red bags today and also tonight and reassess tomorrow. Will continue the diuretics. (3) HTN (hypertension): Code(s): I10 - Essential (primary) hypertension Status: Chronic Assessment and Plan: Blood pressure seems to be doing pretty well with a systolic in the 140s. (4) CAD (coronary artery disease): Code(s): I25.10 - Atherosclerotic heart disease of [place] coronary artery without angina pectoris Status: Acute Assessment and Plan: Patient is not having any chest pain (5) Gout: Code(s): M10.9 - Gout, unspecified Status: Acute Assessment and Plan: No symptoms (6) Diabetes: Code(s): E11.9 - Type 2 diabetes mellitus without complications Status: Chronic Assessment and Plan: Sugar has been a little bit low. She is NPO now because there was consideration of placing a hemodialysis catheter in. This does not need to be done so will feed the patient. The red bags will also keep the sugar up. Otherwise diabetes to be managed by the hospitalists (7) Anemia: Code(s): D64.9 - Anemia, unspecified Status: Chronic Assessment and Plan: Will start Epogen (8) Renal osteodystrophy: Code(s): N25.0 - Renal osteodystrophy Status: Acute Assessment and Plan: Will check phosphorus tomorrow History of Present Illness Reason for Consult Consult date: 07/17/24 Chief Complaint Chief complaint: Fluid overload, exertional shortness of breath History of Present Illness Narrative: This is a very pleasant 76-year-old lady who has multiple medical problems including end-stage renal disease on peritoneal dialysis nightly, hypertension, diabetes, coronary disease, grade 2 diastolic dysfunction, [id number] mitral regurg, mild pulmonary hypertension, obstructive sleep apnea, peptic ulcer disease, anemia, renal osteodystrophy. The patient came in because of swelling and shortness of breath. She has been on peritoneal dialysis for about a year or possibly more. She has had episodes where she gets volume overloaded. At 1st it was felt like she was reabsorbed being her day dwells and so she was switched to extraneal bags which do not resort so much fluid during the day. For the past few months she has been using 2 greens at night and a purple bag during the day. Her baseline weight seems to be in the mid to high 130s. However she gained some weight developed some swelling about 6 days ago and started using a red bag plus green plus purple.. She gained a little bit more weight and then plateaued at that point. She continued to have the swelling in the shortness of breath so she came to the hospital. I looked over her flow sheets and it looks like in though she is on extraneal during the day she is still resorbing about 600cc of fluid. Her ultrafiltration is not very high at all between 0 and 500cc at night. She does make some urine and takes diuretics. She says that her other labs seem to be pretty good. She does not remember the numbers but she says that they at least are not talking to her about changing binders all the time etc.. They do mention that she needs to eat more protein She has not had any fevers or chills. Fluid is clear in flows are good. Review of Systems 2 Constitutional: Constitutional: Reports no additional constitutional complaints Eyes: Eyes: Reports no additional eye complaints ENT: Reports system reviewed and no additional complaints, except as documented Cardiovascular: Cardiovascular: Reports no additional cardiovascular complaints Respiratory: Respiratory: Reports no additional respiratory complaints Gastrointestinal: Gastrointestinal: Reports no additional gastrointestinal complaints Genitourinary: Genitourinary: Reports no additional female genitourinary complaints Musculoskeletal: Musculoskeletal: Reports no additional musculoskeletal complaints Integumentary/Breasts: Skin/Breast: Reports system reviewed and no additional complaints, except as docu Neurologic: Reports system reviewed and no additional complaints, except as documented Psychiatric: Psychiatric: Reports no additional psychiatric complaints Endocrine: Endocrine: Reports no additional endocrine complaints [facility] Past Medical History Medical History Complex renal cyst Essential hypertension Volume overload Coronary artery disease involving coronary bypass graft of [place] heart Obstructive sleep apnea History of adenomatous polyp of colon Obesity PUD (peptic ulcer disease) Heart attack 2012 Congestive heart failure Pneumonia MASSIMO (acute kidney injury) Diabetes Surgical History Surgical History Hx of CABG 2012 with gresham to the Left anterior descending, SVG to the diagonal, SVG to the ramus and SVG to the PDA) H/O shoulder surgery on the right Hx of cataract extraction History of bladder surgery History of appendectomy History of rectal polypectomy H/O heart artery stent 2 H/O right heart catheterization 2 History of tonsillectomy History of cholecystectomy H/O total hysterectomy Family History Family History Mother Diabetes mellitus Hypertension Acute myocardial infarction Father Cancer of bone Sibling Social History Social History Social History: the patient lives with her who is the durable power prosecuting attorney for healthcare. 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 She is a lifelong nonsmoker. She does not use any alcohol marijuana or illicit drugs. Code status full code Smoking status: Never smoker Second hand tobacco smoke exposure: Yes Alcohol intake: never Substance use: never Substance use type: does not use Do You Feel Safe in your Home?: Yes Lack of Transportation: No Lack of Food: Never True Current Housing: I Have Housing Concerned About Future Housing: No Difficulty Paying Gas/Electric Bills: No Difficulty Paying for Meds: No Currently Unemployed: No Education: High School Diploma/GED Difficulty w/ Childcare or Family Care: No Living arrangements: with family Gender identity (if verbalized by the patient): Female Spiritual care concerns: No Meds Home Medications and Allergies Home Medications ?Medication ?Instructions ?Recorded ?Confirmed ?Type allopurinol 300 mg tablet 100 mg PO DAILY 08/31/21 07/17/24 History atorvastatin 40 mg tablet 40 mg PO HS 08/31/21 07/17/24 History carvedilol 25 mg tablet 25 mg PO BID 08/31/21 07/17/24 History hydralazine 100 mg tablet 100 mg PO TID 08/31/21 07/17/24 History clopidogrel 75 mg tablet 75 mg PO DAILY 01/03/22 07/17/24 History aspirin 81 mg capsule 81 mg PO HS 04/26/22 07/17/24 History isosorbide mononitrate 30 mg 30 mg PO BID 04/26/22 07/17/24 History tablet,extended release 24 hr magnesium oxide 400 mg PO BID 04/26/22 07/17/24 History nitroglycerin 0.4 mg sublingual 0.4 mg sublingual Q5MIN PRN Chest 04/26/22 07/17/24 History tablet Pain amlodipine 10 mg tablet 10 mg PO DAILY 05/17/22 07/17/24 History glimepiride 4 mg tablet 4 mg PO BID 05/17/22 07/17/24 History pantoprazole 40 mg tablet,delayed 40 mg PO DAILY 05/17/22 07/17/24 History release albuterol sulfate 90 mcg/actuation 2 puff inhalation Q6H PRN Cough or 07/17/24 07/17/24 History aerosol inhaler SOB. azithromycin 250 mg tablet 250 mg PO DAILY 07/17/24 07/17/24 History blood sugar diagnostic (True 07/17/24 07/17/24 History Metrix Glucose Test Strip) cholecalciferol (vitamin D3) 50 6,000 unit PO DAILY 07/17/24 07/17/24 History mcg (2,000 unit) capsule (Vitamin D3) furosemide 20 mg tablet 20 mg PO BID 07/17/24 07/17/24 History furosemide 80 mg tablet 80 mg PO BID 07/17/24 07/17/24 History lancets 30 gauge (Ultra Thin 07/17/24 07/17/24 History Lancets) potassium chloride 10 mEq 10 meq PO DAILY 07/17/24 07/17/24 History tablet,extended release vitamin B comp no.3-folic acid 1 1 tablet PO DAILY 07/17/24 07/17/24 History mg-vit C 60 mg-biotin 300 mcg tablet ([facility]) Allergies Allergy/AdvReac Type Severity Reaction Status Date / Time metronidazole (From Flagyl) Allergy Unknown Unknown Verified 07/17/24 01:33 Penicillins Allergy Unknown ITCHING Verified 07/17/24 01:33 tramadol Allergy Unknown HIVES Verified 07/17/24 01:33 hydrocodone AdvReac Mild ITCHING Verified 07/17/24 01:33 triamterene AdvReac Mild ITCH Verified 07/17/24 01:33 carbamazepine AdvReac Unknown Unknown Verified 07/17/24 01:33 ciprofloxacin AdvReac Unknown Dizziness Verified 07/17/24 01:33 gabapentin AdvReac Unknown Diarrhea Verified 07/17/24 01:33 iohexol (From contrast - CT, AdvReac Unknown Other Verified 07/17/24 01:34 X-RAY) labetalol AdvReac Unknown Dizziness Verified 07/17/24 01:33 Sulfa (Sulfonamide AdvReac Unknown Unknown Verified 07/17/24 01:33 Antibiotics) terbinafine AdvReac Unknown Other Verified 07/17/24 01:33 clindamycin AdvReac Diarrhea Verified 07/17/24 01:33 Vital Signs Vital Signs - 24 hr 07/16/24 13:47 07/16/24 18:37 07/16/24 18:37 Temperature 97.9 F Pulse Rate 66 70 88 Respiratory Rate 19 16 Blood Pressure 125/58 L 157/86 H Pulse Oximetry 97 100 Oxygen Delivery Room Air Fraction of Inspired Oxygen 07/16/24 20:07 07/16/24 21:58 07/17/24 00:16 Temperature Pulse Rate 70 68 Respiratory Rate 18 Blood Pressure 133/98 H Pulse Oximetry 100 100 Oxygen Delivery Room Air Fraction of Inspired Oxygen 07/17/24 00:20 07/17/24 00:22 07/17/24 02:00 Temperature 97.2 F L Pulse Rate 55 L 55 L 62 Respiratory Rate 20 20 Blood Pressure 155/40 H Pulse Oximetry 100 100 Oxygen Delivery Room Air Fraction of Inspired Oxygen 07/17/24 02:47 07/17/24 03:48 07/17/24 04:00 Temperature 97.6 F Pulse Rate 65 62 63 Respiratory Rate 21 H 18 Blood Pressure 142/68 H Pulse Oximetry 100 Oxygen Delivery CPAP Fraction of Inspired Oxygen 07/17/24 04:30 07/17/24 06:00 07/17/24 08:12 Temperature 98.3 F Pulse Rate 62 68 67 Respiratory Rate 18 18 Blood Pressure 142/44 H Pulse Oximetry 100 96 Oxygen Delivery CPAP Fraction of Inspired Oxygen 21 07/17/24 10:19 Temperature Pulse Rate 68 Respiratory Rate Blood Pressure Pulse Oximetry Oxygen Delivery Fraction of Inspired Oxygen Exam 2 Narrative: Exam Narrative: Well developed well-nourished female in no acute distress Skin is warm and dry without rash Head normocephalic atraumatic Eyes normal sclerae and conjunctivae Mouth normal lips teeth and gums Neck no nodes no thyromegaly no carotid bruits Axillae no nodes Back no CVA tenderness Lungs symmetric and a few crackles at the bases and normal to percussion Heart regular rate and rhythm without rub or gallop Abdomen bowel sounds positive soft nontender, no HSM, masses, or bruits. Extremities no cyanosis, clubbing, 1 to2+ bilateral edema Pulses 2+ equal in radial arteries Psychological not anxious or depressed Neuro alert and oriented x3 motor 5/5 cranial nerves 2-12 intact reflexes 2+ and equal in the biceps and patellar tendons cerebellar normal rapid alternating movements Results Lab Results 07/17/24 03:24 07/17/24 03:24 Lab results: Most recent lab results Calcium 7.8 mg/dL (8.4-10.2) L 07/17/24 03:24 Phosphorus 4.9 mg/dL (2.5-4.5) H 07/17/24 03:24 Magnesium 1.7 mg/dL (1.6-2.3) 07/17/24 03:24
--- NOTE | 2024-07-17 10:28 | PM.EVENT ---
Event Note Event Note Event Note: Patient is on peritoneal dialysis. She is tolerating it well. We use already back get fluid off. She was seen at 10:00 a.m.
[2024-07-17 12:08] LABS: Glucose Point of Care 166 mg/dl (65-105)
[2024-07-17 16:14] LABS: Glucose Point of Care 331 mg/dl (65-105)
--- NOTE | 2024-07-17 16:48 | P.PNIM_ITS ---
Progress Note: A&P Assessment and Plan (1) End stage renal disease: Code(s): N18.6 - End stage renal disease Status: Chronic Assessment and Plan: With fluid overload Continue peritoneal dialysis Nephrology following likely discharge tomorrow (2) HTN (hypertension): Code(s): I10 - Essential (primary) hypertension Status: Chronic Assessment and Plan: Resume home meds (3) Chronic diastolic CHF (congestive heart failure): Code(s): I50.32 - Chronic diastolic (congestive) heart failure Status: Acute Assessment and Plan: Fluid overloaded, continue Dialysis (4) Obstructive sleep apnea: Code(s): G47.33 - Obstructive sleep apnea (adult) (pediatric) Status: Acute Assessment and Plan: CPAP at nighttime (5) Gout: Code(s): M10.9 - Gout, unspecified Status: Acute Assessment and Plan: Stable Plan DVT prophylaxis on Sq Heparin Subjective Date/time seen: 07/17/24 16:48 Interval history: Patient comfortable at bedside Undergoing peritoneal dialysis likely discharge tomorrow Review of Systems Review of Systems: Shortness of breath Exam Narrative: Patient is laying in a stretcher Const: General: comfortable, no acute distress, well developed, alert, awake, ill appearing chronically and edematous Nutritional Appearance: edematous Orientation/consciousness: patient oriented x3 HENMT: Head: normal to inspection, normocephalic and atraumatic Ears: hearing grossly normal bilaterally Face/Nose/Sinus: normal facial exam Face and sinus: normal facial exam Eyes: General: appearance normal, both eyes and all related structures Pupils: Equal, round and reactive pupils present EOM: EOMs intact bilaterally Neck: Neck: full ROM, no lymphadenopathy and no JVD Thyroid: thyroid normal Lymphatic: no lymphadenopathy noted Resp: Effort & Inspection: normal respiratory effort and able to speak in complete sentences Auscultation: crackles and diminished lung sounds Cardio: Jugular venous distension: no JVD Rate: regular rate Rhythm: regular rhythm Heart sounds: S1 normal heart sound present and S2 normal heart sound present GI: Inspection: Pannus present and obesity Other: Peritoneal dialysis catheter in place : General: Yes deferred Skin: Rashes: no rashes Wounds: no wounds Neuro: General: patient oriented x3 and CN's II-XI intact bilaterally Cranial nerves: Yes CN's II-XII intact bilaterally and Yes Equal, round and reactive pupils present Cognition (Neuro): normal cognition Speech: normal speech Gait exam (Neuro): Normal gait present Motor exam (neuro): 5/5 motor strength present throughout Extrem: General: normal to inspection, full ROM, no joint enlargement and no pedal edema Other: Bilateral lower extremity edema 1+ Objective Data Vital Signs Vital Signs: Vital Signs - 24 hr 07/16/24 18:37 07/16/24 18:37 07/16/24 20:07 Temperature Pulse Rate 70 88 Respiratory Rate 16 Blood Pressure 157/86 H Pulse Oximetry 100 100 Oxygen Delivery Room Air Fraction of Inspired Oxygen 07/16/24 21:58 07/17/24 00:16 07/17/24 00:20 Temperature Pulse Rate 70 68 55 L Respiratory Rate 18 20 Blood Pressure 133/98 H Pulse Oximetry 100 100 Oxygen Delivery Room Air Fraction of Inspired Oxygen 07/17/24 00:22 07/17/24 02:00 07/17/24 02:47 Temperature 97.2 F L Pulse Rate 55 L 62 65 Respiratory Rate 20 21 H Blood Pressure 155/40 H Pulse Oximetry 100 Oxygen Delivery CPAP Fraction of Inspired Oxygen 07/17/24 03:48 07/17/24 04:00 07/17/24 04:30 Temperature 97.6 F Pulse Rate 62 63 62 Respiratory Rate 18 18 Blood Pressure 142/68 H Pulse Oximetry 100 100 Oxygen Delivery CPAP Fraction of Inspired Oxygen 21 07/17/24 06:00 07/17/24 08:00 07/17/24 08:00 Temperature Pulse Rate 68 67 Respiratory Rate Blood Pressure Pulse Oximetry Oxygen Delivery Room Air Fraction of Inspired Oxygen 07/17/24 08:12 07/17/24 10:00 07/17/24 10:19 Temperature 98.3 F Pulse Rate 67 66 68 Respiratory Rate 18 Blood Pressure 142/44 H Pulse Oximetry 96 Oxygen Delivery Fraction of Inspired Oxygen 07/17/24 12:00 07/17/24 12:00 07/17/24 12:25 Temperature 98.3 F Pulse Rate 66 63 70 Respiratory Rate 20 Blood Pressure 123/41 L Pulse Oximetry 100 Oxygen Delivery Room Air Fraction of Inspired Oxygen 07/17/24 14:00 07/17/24 16:26 Temperature 98.1 F Pulse Rate 65 65 Respiratory Rate 18 Blood Pressure 145/41 H Pulse Oximetry 98 Oxygen Delivery Fraction of Inspired Oxygen Intake/Output Intake/Output: Intake & Output 07/14/24 07/15/24 07/16/24 07/17/24 23:59 23:59 23:59 23:59 Intake Total 240 Balance 240 Meds/Results Medications: Active Medications Generic Name Dose Route Start Last Admin Trade Name Freq PRN Reason Stop Dose Admin Albuterol 2 puff 07/17/24 02:33 Albuterol Sulfate (*Sp) Aerosol 1 Puff INHALATION Q6HRT PRN Cough or SOB. Allopurinol 100 mg 07/17/24 09:00 07/17/24 10:18 Allopurinol 100 Mg Tablet PO 100 mg DAILY MACARIO Administration Amlodipine Besylate 10 mg 07/17/24 09:00 07/17/24 10:19 Amlodipine Besylate 10 Mg Tablet PO 10 mg DAILY MACARIO Administration Aspirin 81 mg 07/17/24 21:00 Aspirin 81 Mg Enteric Tablet PO QHS MACARIO Carvedilol 25 mg 07/17/24 09:00 07/17/24 10:19 Carvedilol 25 Mg Tablet PO 25 mg BIDWM MACARIO Administration Clopidogrel Bisulfate 75 mg 07/17/24 09:00 07/17/24 10:19 Clopidogrel Bisulfate 75 Mg Tablet PO 75 mg DAILY MACARIO Administration Dextrose 12.5 gm 07/17/24 02:19 07/17/24 08:20 Dextrose 50% 25 Gm/50 Ml Syringe IV PUSH 12.5 gm PRN PRN Administration Hypoglycemia Protocol Epoetin Ryan-epbx 10,000 units 07/18/24 09:00 Epoetin Ryan-Epbx 10,000 Units/Ml Vial SUB-Q MOWEFR@09 MACARIO Furosemide 80 mg 07/17/24 10:08 07/17/24 10:18 Furosemide 80 Mg Tablet PO 80 mg BID MACARIO Administration Glucagon 1 mg 07/17/24 02:19 Glucagon For Inj 1 Mg Vial IM PRN PRN Hypoglycemia Protocol Glucose 15 gm 07/17/24 02:19 Glucose Oral Gel 15 Gm Of Glucse In 37.5 Gm Tube PO PRN PRN Hypoglycemia Protocol Hydralazine HCl 100 mg 07/17/24 09:00 07/17/24 13:30 Hydralazine Hcl 50 Mg Tablet PO 100 mg TID MACARIO Administration Dextrose 1,000 mls @ 100 mls/hr 07/17/24 02:19 Dextrose 5% 1,000 Ml IVPB PRN PRN Hypoglycemia Protocol Insulin Aspart 4 - 8 units 07/17/24 17:00 Insulin Aspart (*Bkc) 100 Units/Ml SUB-Q TIDWM MACARIO Protocol Isosorbide Mononitrate 30 mg 07/17/24 09:00 07/17/24 10:18 Isosorbide Mononitrate 30 Mg Tab.Er.24h PO 30 mg Q12HR MACARIO Administration Magnesium Oxide 400 mg 07/17/24 09:00 07/17/24 10:18 Magnesium Oxide 400 Mg Tablet PO 400 mg BID MACARIO Administration Nitroglycerin 0.4 mg 07/17/24 02:32 Nitroglycerin Sl 0.4 Mg Tablet SUBLINGUAL Q5MIN PRN Chest Pain Pantoprazole Sodium 40 mg 07/17/24 09:00 07/17/24 10:18 Pantoprazole 40 Mg Tablet PO 40 mg DAILY MACRAIO Administration Perflutren Lipid Microsphere 0 ml 07/17/24 10:42 Perflutren Lipid Microspheres 1.5 Ml Vial Diluted To 10 Ml Total Volume IV PUSH 07/20/24 10:43 ONCE PRN adequate visualization Protocol Radiology Results: ITS Impressions Chest X-Ray 07/16/24 13:26 IMPRESSION: Pulmonary vascular congestion, subpleural and pulmonary interstitial edema Labs Labs: Laboratory Results - last 24 hr 07/16/24 07/16/24 07/16/24 18:28 20:35 21:05 WBC RBC Hgb Hct MCV MCH MCHC RDW Plt Count MPV Immature Gran % (Auto) Neut % (Auto) Lymph % (Auto) [place] % (Auto) Eos % (Auto) Baso % (Auto) Lymph # (Auto) [place] # (Auto) Eos # (Auto) Baso # (Auto) Abs Immat Gran (auto) Absolute Neuts (auto) Absolute Nucleated RBC Nucleated RBC % PT INR Sodium Potassium Chloride Carbon Dioxide Anion Gap BUN Creatinine Estim Creat Clear Calc Estimated GFR Glucose POC Capillary Glucose 79 103 Calcium Phosphorus Magnesium Total Bilirubin AST ALT Alkaline Phosphatase Total Protein Albumin Nasal MRSA (PCR) Hep Bs Antigen Hep Bs Antibody Influenza A (RT-PCR) Negative Influenza B (RT-PCR) Negative RSV (RT-PCR) Negative SARS-CoV-2 RNA (RT-PCR) Negative 07/17/24 07/17/24 07/17/24 00:47 02:33 02:44 WBC RBC Hgb Hct MCV MCH MCHC RDW Plt Count MPV Immature Gran % (Auto) Neut % (Auto) Lymph % (Auto) [place] % (Auto) Eos % (Auto) Baso % (Auto) Lymph # (Auto) [place] # (Auto) Eos # (Auto) Baso # (Auto) Abs Immat Gran (auto) Absolute Neuts (auto) Absolute Nucleated RBC Nucleated RBC % PT INR Sodium Potassium Chloride Carbon Dioxide Anion Gap BUN Creatinine Estim Creat Clear Calc Estimated GFR Glucose POC Capillary Glucose 60 L 158 H Calcium Phosphorus Magnesium Total Bilirubin AST ALT Alkaline Phosphatase Total Protein Albumin Nasal MRSA (PCR) Not detected Hep Bs Antigen Hep Bs Antibody Influenza A (RT-PCR) Influenza B (RT-PCR) RSV (RT-PCR) SARS-CoV-2 RNA (RT-PCR) 07/17/24 07/17/24 07/17/24 03:24 08:11 08:51 WBC 16.7 H RBC 3.79 L Hgb 10.9 L Hct 34.0 L MCV 89.7 MCH 28.8 MCHC 32.1 RDW 17.9 H Plt Count 195 MPV 9.3 Immature Gran % (Auto) 1.6 H Neut % (Auto) 78.6 H Lymph % (Auto) 10.4 L [place] % (Auto) 6.7 Eos % (Auto) 2.5 Baso % (Auto) 0.2 Lymph # (Auto) 1.74 [place] # (Auto) 1.1 H Eos # (Auto) 0.4 H Baso # (Auto) 0.0 Abs Immat Gran (auto) 0.27 H Absolute Neuts (auto) 13.1 H Absolute Nucleated RBC 0.020 H Nucleated RBC % 0.1 PT 13.9 INR 1.0 Sodium 135 L Potassium 3.5 Chloride 97 L Carbon Dioxide 25 Anion Gap 13 H BUN 78 H Creatinine 6.61 H Estim Creat Clear Calc Not Reportable Estimated GFR 6 L Glucose 111 H POC Capillary Glucose 49 L* 120 H Calcium 7.8 L Phosphorus 4.9 H Magnesium 1.7 Total Bilirubin 0.6 AST 21 ALT 18 Alkaline Phosphatase 80 Total Protein 6.0 L Albumin 3.2 L Nasal MRSA (PCR) Hep Bs Antigen Negative Hep Bs Antibody Positive Influenza A (RT-PCR) Influenza B (RT-PCR) RSV (RT-PCR) SARS-CoV-2 RNA (RT-PCR) 07/17/24 07/17/24 11:56 15:48 WBC RBC Hgb Hct MCV MCH MCHC RDW Plt Count MPV Immature Gran % (Auto) Neut % (Auto) Lymph % (Auto) [place] % (Auto) Eos % (Auto) Baso % (Auto) Lymph # (Auto) [place] # (Auto) Eos # (Auto) Baso # (Auto) Abs Immat Gran (auto) Absolute Neuts (auto) Absolute Nucleated RBC Nucleated RBC % PT INR Sodium Potassium Chloride Carbon Dioxide Anion Gap BUN Creatinine Estim Creat Clear Calc Estimated GFR Glucose POC Capillary Glucose 166 H 331 H Calcium Phosphorus Magnesium Total Bilirubin AST ALT Alkaline Phosphatase Total Protein Albumin Nasal MRSA (PCR) Hep Bs Antigen Hep Bs Antibody Influenza A (RT-PCR) Influenza B (RT-PCR) RSV (RT-PCR) SARS-CoV-2 RNA (RT-PCR)
[2024-07-17] MEDS: INSULIN ASPART (*BKC) 100 UNITS/ML SUB-Q ×2 (17:26→22:11)
[2024-07-17 17:34] LABS: Glucose Point of Care 346 mg/dl (65-105)
[2024-07-17 18:36] LABS: Glucose Point of Care 313 mg/dl (65-105)
[2024-07-17] MEDS: ASPIRIN 81 MG ENTERIC TABLET PO (20:38)
[2024-07-17] MEDS: HEPARIN SODIUM 5,000 UNITS/ML VIAL 5000 UNITS SUB-Q (20:38)
[2024-07-17 21:43] LABS: Glucose Point of Care 296 mg/dl (65-105)
[2024-07-18] VITALS (21 sets, daily range): BP systolic 125–157; BP diastolic 33–54; PULSE 61–70; RESP 18–20; TEMP 36.7–37; O2SAT 96–100
[2024-07-18 04:51] LABS: Basophils Percent Auto 0.3 % (0.2-1.2); Eosinophils Absolute Auto 0.2 K/mm3 (0-0.3); Eosinophils Percent Auto 1.6 % (0-4.4); Hematocrit 31.4 % (37.0-47.0); Hemoglobin 9.7 g/dL (12.0-15.0); Immature Granulocyte Absolute 0.18 K/mm3 (0.00-0.031); Immature Granulocyte Percent A 1.4 % (0-0.5); Lymphocytes Percent Auto 11.4 % (18.3-44.2); Mean Corpuscular HGB Conc 30.9 g/dl (32-36); Mean Corpuscular Hemoglobin 28.4 pg (26-34); Mean Corpuscular Volume 92.1 fl (80-100); Mean Platelet Volume 9.5 fl (7.4-10.4); Monocytes Absolute Auto 1.1 K/mm3 (0.1-0.6); Neutrophils Absolute Auto 10.2 K/mm3 (1.3-6.7); Neutrophils Percent Auto 77.3 % (45.5-73.1); Nucleated Red Blood Cells Perc 0.2 % (0.0-0.2); Platelet Count Result 177 k/mm3 (150-375); Red Blood Count 3.41 M/mm3 (4.2-5.4); Red Cell Distribution Width 18.1 % (11.5-14.5); White Blood Count 13.2 K/mm3 (4.5-10.0)
[2024-07-18 05:10] LABS: Alanine Aminotransferase 14 U/L (6-35); Alkaline Phosphatase 77 U/L (38-126); Anion Gap 8 mmol/L (4-12); Aspartate Amino Transferase 19 U/L (14-36); Bilirubin,Total 0.5 mg/dL (0.2-1.3); Blood Urea Nitrogen 58 mg/dL (7-17); Calcium 7.9 mg/dL (8.4-10.2); Carbon Dioxide 27 mmol/L (22-30); Chloride 99 mmol/L (98-107); Estimated Glomerular Filt Rate 6; Glucose 305 mg/dL (65-110); Magnesium 1.6 mg/dL (1.6-2.3); Sodium 134 mmol/L (137-145)
[2024-07-18] MEDS: HEPARIN SODIUM 5,000 UNITS/ML VIAL 5000 UNITS SUB-Q ×3 (06:28→21:10)
--- NOTE | 2024-07-18 07:41 | P.PNIM_ITS ---
Progress Note: A&P Assessment and Plan (1) End stage renal disease: Code(s): N18.6 - End stage renal disease Status: Chronic Assessment and Plan: With fluid overload Continue peritoneal dialysis Nephrology following likely discharge tomorrow (2) HTN (hypertension): Code(s): I10 - Essential (primary) hypertension Status: Chronic Assessment and Plan: Resume home meds (3) Chronic diastolic CHF (congestive heart failure): Code(s): I50.32 - Chronic diastolic (congestive) heart failure Status: Acute Assessment and Plan: Fluid overloaded, continue Dialysis (4) Obstructive sleep apnea: Code(s): G47.33 - Obstructive sleep apnea (adult) (pediatric) Status: Acute Assessment and Plan: CPAP at nighttime (5) Gout: Code(s): M10.9 - Gout, unspecified Status: Acute Assessment and Plan: Stable Plan DVT prophylaxis on Sq Heparin Subjective Date/time seen: 07/18/24 07:41 Interval history: No acute events reported overnight. Continue receiving peritoneal dialysis Review of Systems Review of Systems: Shortness of breath Exam Narrative: Patient is laying in a stretcher Const: General: comfortable, no acute distress, well developed, alert, awake, ill appearing chronically and edematous Nutritional Appearance: edematous Orientation/consciousness: patient oriented x3 HENMT: Head: normal to inspection, normocephalic and atraumatic Ears: hearing grossly normal bilaterally Face/Nose/Sinus: normal facial exam Face and sinus: normal facial exam Eyes: General: appearance normal, both eyes and all related structures Pupils: Equal, round and reactive pupils present EOM: EOMs intact bilaterally Neck: Neck: full ROM, no lymphadenopathy and no JVD Thyroid: thyroid normal Lymphatic: no lymphadenopathy noted Resp: Effort & Inspection: normal respiratory effort and able to speak in complete sentences Auscultation: crackles and diminished lung sounds Cardio: Jugular venous distension: no JVD Rate: regular rate Rhythm: regular rhythm Heart sounds: S1 normal heart sound present and S2 normal heart sound present GI: Inspection: Pannus present and obesity Other: Peritoneal dialysis catheter in place : General: Yes deferred Skin: Rashes: no rashes Wounds: no wounds Neuro: General: patient oriented x3 and CN's II-XI intact bilaterally Cranial nerves: Yes CN's II-XII intact bilaterally and Yes Equal, round and reactive pupils present Cognition (Neuro): normal cognition Speech: normal speech Gait exam (Neuro): Normal gait present Motor exam (neuro): 5/5 motor strength present throughout Extrem: General: normal to inspection, full ROM, no joint enlargement and no pedal edema Other: Bilateral lower extremity edema 1+ Objective Data Vital Signs Vital Signs: Vital Signs - 24 hr 07/17/24 08:00 07/17/24 08:00 07/17/24 08:12 Temperature 98.3 F Pulse Rate 67 67 Respiratory Rate 18 Blood Pressure 142/44 H Pulse Oximetry 96 Oxygen Delivery Room Air 07/17/24 10:00 07/17/24 10:19 07/17/24 12:00 Temperature Pulse Rate 66 68 66 Respiratory Rate Blood Pressure Pulse Oximetry Oxygen Delivery 07/17/24 12:00 07/17/24 12:25 07/17/24 14:00 Temperature 98.3 F Pulse Rate 63 70 65 Respiratory Rate 20 Blood Pressure 123/41 L Pulse Oximetry 100 Oxygen Delivery Room Air 07/17/24 16:00 07/17/24 16:00 07/17/24 16:26 Temperature 98.1 F Pulse Rate 67 65 Respiratory Rate 18 Blood Pressure 145/41 H Pulse Oximetry 98 Oxygen Delivery Room Air 07/17/24 17:24 07/17/24 18:00 07/17/24 19:10 Temperature 98.4 F Pulse Rate 72 66 72 Respiratory Rate 18 Blood Pressure 153/97 H Pulse Oximetry Oxygen Delivery 07/17/24 20:00 07/17/24 20:00 07/17/24 20:00 Temperature 98.4 F Pulse Rate 61 61 72 Respiratory Rate 18 18 Blood Pressure 153/97 H Pulse Oximetry 98 99 Oxygen Delivery Room Air 07/17/24 22:00 07/17/24 22:00 07/17/24 22:45 Temperature Pulse Rate 70 72 Respiratory Rate Blood Pressure Pulse Oximetry 99 Oxygen Delivery Room Air CPAP 07/18/24 00:00 07/18/24 00:00 07/18/24 00:00 Temperature 98.6 F Pulse Rate 67 67 67 Respiratory Rate 20 20 Blood Pressure 134/54 L Pulse Oximetry 96 96 Oxygen Delivery Room Air 07/18/24 02:22 07/18/24 04:00 07/18/24 04:04 Temperature 98.3 F Pulse Rate 66 64 Respiratory Rate 18 Blood Pressure 145/50 H Pulse Oximetry 100 Oxygen Delivery CPAP 07/18/24 04:10 07/18/24 04:10 07/18/24 06:00 Temperature Pulse Rate 65 70 Respiratory Rate Blood Pressure Pulse Oximetry Oxygen Delivery Room Air Intake/Output Intake/Output: Intake & Output 07/15/24 07/16/24 07/17/24 07/18/24 23:59 23:59 23:59 23:59 Intake Total 680 200 Output Total 504 Balance 176 200 Meds/Results Medications: Active Medications Generic Name Dose Route Start Last Admin Trade Name Freq PRN Reason Stop Dose Admin Albuterol 2 puff 07/17/24 02:33 Albuterol Sulfate (*Sp) Aerosol 1 Puff INHALATION Q6HRT PRN Cough or SOB. Allopurinol 100 mg 07/17/24 09:00 07/17/24 10:18 Allopurinol 100 Mg Tablet PO 100 mg DAILY MACARIO Administration Amlodipine Besylate 10 mg 07/17/24 09:00 07/17/24 10:19 Amlodipine Besylate 10 Mg Tablet PO 10 mg DAILY MACARIO Administration Aspirin 81 mg 07/17/24 21:00 07/17/24 20:38 Aspirin 81 Mg Enteric Tablet PO 81 mg QHS MACARIO Administration Carvedilol 25 mg 07/17/24 09:00 07/17/24 17:24 Carvedilol 25 Mg Tablet PO 25 mg BIDWM MACARIO Administration Clopidogrel Bisulfate 75 mg 07/17/24 09:00 07/17/24 10:19 Clopidogrel Bisulfate 75 Mg Tablet PO 75 mg DAILY MACARIO Administration Dextrose 12.5 gm 07/17/24 02:19 07/17/24 08:20 Dextrose 50% 25 Gm/50 Ml Syringe IV PUSH 12.5 gm PRN PRN Administration Hypoglycemia Protocol Epoetin Ryan-epbx 10,000 units 07/18/24 09:00 Epoetin Ryan-Epbx 10,000 Units/Ml Vial SUB-Q MOWEFR@09 MACARIO Furosemide 80 mg 07/17/24 10:08 07/17/24 10:18 Furosemide 80 Mg Tablet PO 80 mg BID MACARIO Administration Glucagon 1 mg 07/17/24 02:19 Glucagon For Inj 1 Mg Vial IM PRN PRN Hypoglycemia Protocol Glucose 15 gm 07/17/24 02:19 Glucose Oral Gel 15 Gm Of Glucse In 37.5 Gm Tube PO PRN PRN Hypoglycemia Protocol Heparin Sodium (Porcine) 5,000 units 07/17/24 22:00 07/18/24 06:28 Heparin Sodium 5,000 Units/Ml Vial SUB-Q 5,000 units Q8HR MACARIO Administration Hydralazine HCl 100 mg 07/17/24 09:00 07/17/24 17:25 Hydralazine Hcl 50 Mg Tablet PO 100 mg TID MACARIO Administration Dextrose 1,000 mls @ 100 mls/hr 07/17/24 02:19 Dextrose 5% 1,000 Ml IVPB PRN PRN Hypoglycemia Protocol Insulin Aspart 4 - 8 units 07/17/24 17:00 07/17/24 17:26 Insulin Aspart (*Bkc) 100 Units/Ml SUB-Q 6 units TIDWM MACARIO Administration Protocol Insulin Aspart 1 - 2 units 07/17/24 22:00 07/17/24 22:11 Insulin Aspart (*Bkc) 100 Units/Ml SUB-Q 1 units HS MACARIO Administration Protocol Isosorbide Mononitrate 30 mg 07/17/24 09:00 07/17/24 20:38 Isosorbide Mononitrate 30 Mg Tab.Er.24h PO 30 mg Q12HR MACARIO Administration Magnesium Oxide 400 mg 07/17/24 09:00 07/17/24 17:24 Magnesium Oxide 400 Mg Tablet PO 400 mg BID MACARIO Administration Nitroglycerin 0.4 mg 07/17/24 02:32 Nitroglycerin Sl 0.4 Mg Tablet SUBLINGUAL Q5MIN PRN Chest Pain Pantoprazole Sodium 40 mg 07/17/24 09:00 07/17/24 10:18 Pantoprazole 40 Mg Tablet PO 40 mg DAILY MACARIO Administration Perflutren Lipid Microsphere 0 ml 07/17/24 10:42 Perflutren Lipid Microspheres 1.5 Ml Vial Diluted To 10 Ml Total Volume IV PUSH 07/20/24 10:43 ONCE PRN adequate visualization Protocol Radiology Results: ITS Impressions Chest X-Ray 07/16/24 13:26 IMPRESSION: Pulmonary vascular congestion, subpleural and pulmonary interstitial edema Labs Labs: Laboratory Results - last 24 hr 07/17/24 07/17/24 07/17/24 08:11 08:51 11:56 WBC RBC Hgb Hct MCV MCH MCHC RDW Plt Count MPV Immature Gran % (Auto) Neut % (Auto) Lymph % (Auto) [place] % (Auto) Eos % (Auto) Baso % (Auto) Lymph # (Auto) [place] # (Auto) Eos # (Auto) Baso # (Auto) Abs Immat Gran (auto) Absolute Neuts (auto) Absolute Nucleated RBC Nucleated RBC % Sodium Potassium Chloride Carbon Dioxide Anion Gap BUN Creatinine Estim Creat Clear Calc Estimated GFR Glucose POC Capillary Glucose 49 L* 120 H 166 H Calcium Magnesium Total Bilirubin AST ALT Alkaline Phosphatase Total Protein Albumin 07/17/24 07/17/24 07/17/24 15:48 17:22 18:34 WBC RBC Hgb Hct MCV MCH MCHC RDW Plt Count MPV Immature Gran % (Auto) Neut % (Auto) Lymph % (Auto) [place] % (Auto) Eos % (Auto) Baso % (Auto) Lymph # (Auto) [place] # (Auto) Eos # (Auto) Baso # (Auto) Abs Immat Gran (auto) Absolute Neuts (auto) Absolute Nucleated RBC Nucleated RBC % Sodium Potassium Chloride Carbon Dioxide Anion Gap BUN Creatinine Estim Creat Clear Calc Estimated GFR Glucose POC Capillary Glucose 331 H 346 H 313 H Calcium Magnesium Total Bilirubin AST ALT Alkaline Phosphatase Total Protein Albumin 07/17/24 07/18/24 21:40 04:39 WBC 13.2 H RBC 3.41 L Hgb 9.7 L Hct 31.4 L MCV 92.1 MCH 28.4 MCHC 30.9 L RDW 18.1 H Plt Count 177 MPV 9.5 Immature Gran % (Auto) 1.4 H Neut % (Auto) 77.3 H Lymph % (Auto) 11.4 L [place] % (Auto) 8.0 Eos % (Auto) 1.6 Baso % (Auto) 0.3 Lymph # (Auto) 1.50 [place] # (Auto) 1.1 H Eos # (Auto) 0.2 Baso # (Auto) 0.0 Abs Immat Gran (auto) 0.18 H Absolute Neuts (auto) 10.2 H Absolute Nucleated RBC 0.020 H Nucleated RBC % 0.2 Sodium 134 L Potassium 3.0 L Chloride 99 Carbon Dioxide 27 Anion Gap 8 BUN 58 H D Creatinine 6.41 H Estim Creat Clear Calc Not Reportable Estimated GFR 6 L Glucose 305 H POC Capillary Glucose 296 H Calcium 7.9 L Magnesium 1.6 Total Bilirubin 0.5 AST 19 ALT 14 Alkaline Phosphatase 77 Total Protein 6.0 L Albumin 3.0 L Hospitalist MIPS Advance Care Plan I have confirmed that the patient's Advanced Care Plan is present, code status is documented, or surrogate decision maker is listed in patient medical record.: Yes Medication Reconciliation I have utilized all available resources to obtain, update and review the patients current medications (includes all prescriptions, OTC, herbals, cannabis, and nutritional supplements).: Yes
[2024-07-18 08:13] LABS: Glucose Point of Care 286 mg/dl (65-105)
[2024-07-18] MEDS: FUROSEMIDE 80 MG TABLET PO ×2 (09:18→17:57)
[2024-07-18] MEDS: CLOPIDOGREL BISULFATE 75 MG TABLET PO (09:18)
[2024-07-18] MEDS: amLODIPine BESYLATE 10 MG TABLET PO (09:19)
[2024-07-18] MEDS: hydrALAZINE HCL 50 MG TABLET 100 MG PO ×3 (09:19→17:54)
[2024-07-18] MEDS: carvediloL 25 MG TABLET PO ×2 (09:19→17:55)
[2024-07-18] MEDS: allopurinoL 100 MG TABLET PO (09:19)
[2024-07-18] MEDS: ISOSORBIDE MONONITRATE 30 MG TAB.ER.24H PO ×2 (09:19→21:11)
[2024-07-18] MEDS: PANTOPRAZOLE 40 MG TABLET PO (09:19)
[2024-07-18] MEDS: MAGNESIUM OXIDE 400 MG TABLET PO ×2 (09:19→17:55)
[2024-07-18] MEDS: INSULIN ASPART (*BKC) 100 UNITS/ML SUB-Q (09:24)
--- NOTE | 2024-07-18 09:45 | P.PNNP_ITS ---
Subjective Date/time seen: 07/18/24 09:45 Interval history: Follow-up for end stage renal disease on peritoneal dialysis. Chart reviewed -- assuming care from Dr. Esquivel; tolerated peritoneal dialysis treatment overnight with fluid removal/ultrafiltration of ~ 2700cc without any issues or problems ([facility] supervised and seen at 9:35AM); breathing/respiratory status seems to be doing better; at bedside and we discussed the situation. Objective Data Vital Signs Vital Signs: Vital Signs Temp Pulse Resp BP Pulse Ox O2 Del Method FiO2 07/18/24 09:19 67 07/18/24 08:00 67 07/18/24 08:00 Room Air 07/18/24 07:53 98.2 F 66 18 157/46 H 98 07/18/24 06:00 70 07/18/24 04:10 65 07/18/24 04:10 Room Air 07/18/24 04:04 CPAP 07/18/24 04:00 98.3 F 64 18 145/50 H 100 07/18/24 02:22 66 07/18/24 00:00 98.6 F 67 20 134/54 L 96 07/18/24 00:00 67 07/18/24 00:00 67 20 96 Room Air 07/17/24 22:45 72 99 CPAP 07/17/24 22:00 Room Air 07/17/24 22:00 70 07/17/24 20:00 98.4 F 72 18 153/97 H 99 07/17/24 20:00 61 07/17/24 20:00 61 18 98 Room Air 07/17/24 19:10 98.4 F 72 18 153/97 H Intake/Output Intake/Output: Intake & Output 07/15/24 07/16/24 07/17/24 07/18/24 23:59 23:59 23:59 23:59 Intake Total 680 880 Output Total 504 Balance 176 880 Meds/Results Medications: Active Medications Generic Name Dose Route Start Last Admin Trade Name Freq PRN Reason Stop Dose Admin Albuterol 2 puff 07/17/24 02:33 Albuterol Sulfate (*Sp) Aerosol 1 Puff INHALATION Q6HRT PRN Cough or SOB. Allopurinol 100 mg 07/17/24 09:00 07/18/24 09:19 Allopurinol 100 Mg Tablet PO 100 mg DAILY MACARIO Administration Amlodipine Besylate 10 mg 07/17/24 09:00 07/18/24 09:19 Amlodipine Besylate 10 Mg Tablet PO 10 mg DAILY MACARIO Administration Aspirin 81 mg 07/17/24 21:00 07/17/24 20:38 Aspirin 81 Mg Enteric Tablet PO 81 mg QHS MACARIO Administration Carvedilol 25 mg 07/17/24 09:00 07/18/24 17:55 Carvedilol 25 Mg Tablet PO 25 mg BIDWM MACARIO Administration Clopidogrel Bisulfate 75 mg 07/17/24 09:00 07/18/24 09:18 Clopidogrel Bisulfate 75 Mg Tablet PO 75 mg DAILY MACARIO Administration Dextrose 12.5 gm 07/17/24 02:19 07/17/24 08:20 Dextrose 50% 25 Gm/50 Ml Syringe IV PUSH 12.5 gm PRN PRN Administration Hypoglycemia Protocol Epoetin Ryan-epbx 10,000 units 07/18/24 09:00 Epoetin Ryan-Epbx 10,000 Units/Ml Vial SUB-Q MOWEFR@09 MACARIO Furosemide 80 mg 07/17/24 10:08 07/18/24 17:57 Furosemide 80 Mg Tablet PO 80 mg BID MACARIO Administration Glucagon 1 mg 07/17/24 02:19 Glucagon For Inj 1 Mg Vial IM PRN PRN Hypoglycemia Protocol Glucose 15 gm 07/17/24 02:19 Glucose Oral Gel 15 Gm Of Glucse In 37.5 Gm Tube PO PRN PRN Hypoglycemia Protocol Heparin Sodium (Porcine) 5,000 units 07/17/24 22:00 07/18/24 13:12 Heparin Sodium 5,000 Units/Ml Vial SUB-Q 5,000 units Q8HR MACARIO Administration Hydralazine HCl 100 mg 07/17/24 09:00 07/18/24 17:54 Hydralazine Hcl 50 Mg Tablet PO 100 mg TID MACARIO Administration Dextrose 1,000 mls @ 100 mls/hr 07/17/24 02:19 Dextrose 5% 1,000 Ml IVPB PRN PRN Hypoglycemia Protocol Insulin Aspart 4 - 8 units 07/17/24 17:00 07/18/24 17:57 Insulin Aspart (*Bkc) 100 Units/Ml SUB-Q Not Given TIDWM [facility] Protocol Insulin Aspart 1 - 2 units 07/17/24 22:00 07/17/24 22:11 Insulin Aspart (*Bkc) 100 Units/Ml SUB-Q 1 units HS MACARIO Administration Protocol Isosorbide Mononitrate 30 mg 07/17/24 09:00 07/18/24 09:19 Isosorbide Mononitrate 30 Mg Tab.Er.24h PO 30 mg Q12HR MACARIO Administration Magnesium Oxide 400 mg 07/17/24 09:00 07/18/24 17:55 Magnesium Oxide 400 Mg Tablet PO 400 mg BID MACARIO Administration Nitroglycerin 0.4 mg 07/17/24 02:32 Nitroglycerin Sl 0.4 Mg Tablet SUBLINGUAL Q5MIN PRN Chest Pain Pantoprazole Sodium 40 mg 07/17/24 09:00 07/18/24 09:19 Pantoprazole 40 Mg Tablet PO 40 mg DAILY MACARIO Administration Perflutren Lipid Microsphere 0 ml 07/17/24 10:42 Perflutren Lipid Microspheres 1.5 Ml Vial Diluted To 10 Ml Total Volume IV PUSH 07/20/24 10:43 ONCE PRN adequate visualization Protocol Sodium Chloride 1 spray 07/18/24 18:04 Saline 0.65% Octavio Soln 44 Ml Btl NASAL Q6HR PRN Congestion Radiology Results: ITS Impressions Chest X-Ray 07/16/24 13:26 IMPRESSION: Pulmonary vascular congestion, subpleural and pulmonary interstitial edema Labs Labs: Laboratory Tests 07/18/24 04:39 07/18/24 04:39 Calcium 7.9 L Magnesium 1.6 Total Bilirubin 0.5 AST 19 ALT 14 Alkaline Phosphatase 77 Total Protein 6.0 L Albumin 3.0 L Microbiology 07/17/24 01:06 Blood Blood Culture - Preliminary 07/17/24 01:06 Blood Blood Culture - Preliminary
--- NOTE | 2024-07-18 10:43 | ECHO_ITS ---
Patient Info Name: Leidy Voss Age: 79 years : 1945 Gender: Female Ht: 51 in Wt: 133 lbs BSA: 1.51 m2 HR: 70 bpm BP: 145 / 50 mmHg Technical Quality: Fair Exam Date: 07/18/2024 11:42 AM Exam Location: Echo Lab Patient Status: Inpatient Admit Date: 07/16/2024 Staff Ordering Physician: Yasmany Esquivel MD [employer] Framer: Amanda Prescott RDCS Attending Provider: Dipti Fung MD Referring Physician: Sierra LINARES; Exam Type: CA echo doppler color flow Study Info Indications - LE EDEMA/ PULMONARY EDEMA Complete two-dimensional, color flow and Doppler transthoracic echocardiogram is performed. Summary 1. Complete two-dimensional, color flow and Doppler transthoracic echocardiogram is performed. 2. Left ventricular systolic function is normal, estimated at 60-65%. 3. There is mildly increased left ventricular wall thickness. 4. The left ventricular diastolic function is grade II diastolic dysfunction. 5. Left atrial chamber dimension is mildly enlarged. 6. There is mild mitral valve regurgitation. 7. There is mild tricuspid valve regurgitation. 8. Mild pulmonary hypertension, estimated pulmonary arterial systolic pressure is 39 mmHg. Left Ventricle Left ventricular chamber dimension is normal. Left ventricular systolic function is normal, estimated at 60-65%. There is mildly increased left ventricular wall thickness. Left ventricular septal wall motion is normal. The left ventricular diastolic function is grade II diastolic dysfunction. Right Ventricle Right ventricular chamber dimension is normal. Right ventricular systolic function is normal. Left Atria Left atrial chamber dimension is mildly enlarged. Right Atria Right atrial chamber dimension is normal. Aortic Valve The aortic valve is trileaflet. There is no aortic valve sclerosis. There is no aortic valve stenosis. There is no aortic valve regurgitation. Pulmonic Valve The pulmonic valve is normal. There is no pulmonic valve stenosis. There is no pulmonic regurgitation. Mitral Valve The mitral valve has normal leaflets. There is no mitral valve stenosis. There is mild mitral valve regurgitation. Tricuspid Valve The tricuspid valve leaflets are normal. There is no significant tricuspid valve stenosis. There is mild tricuspid valve regurgitation. Mild pulmonary hypertension, estimated pulmonary arterial systolic pressure is 39 mmHg. Pericardium/Pleural The pericardium appears normal. There is no pericardial effusion. Inferior Vena Cava Normal inferior vena cava with <50% collapse upon inspiration consistent with Empty right atrial pressure, 10 mmHg. Aorta The aortic root size at the sinus of Valsalva is normal. The prox ascending aorta size is normal. Left Ventricular Outflow Tract Name Value Normal LVOT 2D LVOT Diameter 1.6 cm LVOT Doppler LVOT Peak Gradient 5 mmHg LVOT Mean Gradient 3 mmHg LVOT VTI 33 cm LVOT VTI/AV VTI Ratio 0.7 LVOT Stroke Volume 68 ml LVOT CO 4.5 l/min LVOT CI 2.9 l/min/m2 Pulmonic Valve Name Value Normal RVOT Doppler RVOT Peak Gradient 8 mmHg PV Doppler PV Peak Gradient 8 mmHg Mitral Valve Name Value Normal MV Doppler MV Peak Gradient 14 mmHg MV Mean Gradient 4 mmHg MV Decel [place] 788 cm/s2 MV PHT 51 ms MV Area (PHT) 4.3 cm2 4.0-5.0 MV Area (Cont Eq VTI) 1.3 cm2 MV Diastolic Function MV E Peak Velocity 138 cm/s MV A Peak Velocity 80 cm/s MV E/A 1.7 MV Decel Time 175 ms MV Annular TDI MV E/e' (Septal) 40.1 <=8.0 MV E/e' (Lateral) 28.3 <=8.0 MV E/e' (Average) 34.2 Tricuspid Valve Name Value Normal TV Regurgitation Doppler TR Peak Velocity 268 cm/s TR Peak Gradient 27 mmHg Estimated PAP/RSVP RA Pressure 10 mmHg <=5 PA Systolic Pressure 39 mmHg <36 RV Systolic Pressure 39 mmHg <36 Aorta Name Value Normal Ascending Aorta Ao Root Diameter (MM) 2.4 cm Ao Root Diam Index (MM) 1.6 cm/m2 Aortic Valve Name Value Normal AV Doppler AV Peak Velocity 167 cm/s AV Peak Gradient 11 mmHg AV Mean Gradient 7 mmHg AV VTI 44 cm AV Area (Cont Eq VTI) 1.5 cm2 >=3.0 AV Area (Cont Eq Merrill) 1.4 cm2 AV Regurgitation 2D LVOT Area 2.1 cm2 Ventricles Name Value Normal LV Dimensions 2D/MM IVS Diastolic Thickness (2D) 1.4 cm 0.6-1.0 LVID Diastole (2D) 4.0 cm 3.8-5.2 LVIW Diastolic Thickness (2D) 2.0 cm 0.6-0.9 LVID Systole (2D) 2.6 cm 2.2-3.5 LVOT Diameter 1.6 cm LV Mass (2D Cubed) 275.09 g 67.00-162.00 LV Mass Index (2D Cubed) 182 g/m2 43-95 Relative Wall Thickness (2D) 1.01 LV Fractional Shortening/Ejection Fraction 2D/MM LV Fractional Shortening (2D) 34 % 27-45 LV EF (2D Teicholz) 64 % 54-74 LV Diastolic Volume (4C MOD) 95 ml LV EF (4C MOD) 61 % LV Diastolic Volume (2C MOD) 104 ml LV EF (2C MOD) 69 % LV Diastolic Volume (BP MOD) 101 ml 46-106 LV Diastolic Volume Index (BP MOD) 67 ml/m2 29-61 LV Systolic Volume (BP MOD) 35 ml 14-42 LV Systolic Volume Index (BP MOD) 23 ml/m2 8-24 LV EF (BP MOD) 65 % 54-74 LV Diastolic Length (4C) 8.0 cm LV Systolic Length (4C) 6.5 cm LV Stroke Volume (4C MOD) 58 ml Atria Name Value Normal LA Dimensions LA Dimension (MM) 4.8 cm 2.7-3.8 LA Volume (4C A-L) 62 ml LA Volume (BP A-L) 73 ml RA Dimensions RA Area (4C) 14.3 cm2 <=18.0 Report Signatures
[2024-07-18 12:06] LABS: Glucose Point of Care 85 mg/dl (65-105)
[2024-07-18 16:10] LABS: Glucose Point of Care 132 mg/dl (65-105)
[2024-07-18] MEDS: EPOETIN ALFA-EPBX 10,000 UNITS/ML VIAL 10000 UNITS SUB-Q (19:31)
[2024-07-18 20:19] LABS: Glucose Point of Care 147 mg/dl (65-105)
[2024-07-18] MEDS: ACETAMINOPHEN 500 MG TABLET PO (21:10)
[2024-07-18] MEDS: ASPIRIN 81 MG ENTERIC TABLET PO (21:11)
[2024-07-19] VITALS (17 sets, daily range): BP systolic 121–150; BP diastolic 30–77; PULSE 62–80; RESP 17–20; TEMP 36.6–36.9; O2SAT 96–100
[2024-07-19 05:13] LABS: Hematocrit 31.7 % (37.0-47.0); Hemoglobin 9.7 g/dL (12.0-15.0); Mean Corpuscular HGB Conc 30.6 g/dl (32-36); Mean Corpuscular Hemoglobin 28.2 pg (26-34); Mean Corpuscular Volume 92.2 fl (80-100); Mean Platelet Volume 9.2 fl (7.4-10.4); Platelet Count Result 162 k/mm3 (150-375); Red Blood Count 3.44 M/mm3 (4.2-5.4); Red Cell Distribution Width 18.3 % (11.5-14.5); White Blood Count 12.3 K/mm3 (4.5-10.0)
[2024-07-19 05:27] LABS: Alanine Aminotransferase 13 U/L (6-35); Albumin Level 2.8 g/dL (3.5-5.1); Alkaline Phosphatase 81 U/L (38-126); Anion Gap 11 mmol/L (4-12); Aspartate Amino Transferase 16 U/L (14-36); Bilirubin,Total 0.5 mg/dL (0.2-1.3); Blood Urea Nitrogen 57 mg/dL (7-17); Calcium 7.5 mg/dL (8.4-10.2); Carbon Dioxide 27 mmol/L (22-30); Chloride 97 mmol/L (98-107); Estimated Glomerular Filt Rate 6; Glucose 233 mg/dL (65-110); Potassium 3.1 mmol/L (3.4-5.0); Sodium 135 mmol/L (137-145)
[2024-07-19] MEDS: HEPARIN SODIUM 5,000 UNITS/ML VIAL 5000 UNITS SUB-Q ×3 (07:11→21:31)
[2024-07-19 07:55] LABS: Glucose Point of Care 278 mg/dl (65-105)
--- NOTE | 2024-07-19 08:25 | ECG_ITS ---
Test Date: 2024-07-19 09:19:28 Measurements Intervals [place] Rate: 61 P: 48 [place]: 206 QRS: 1 QRSD: 100 T: 27 QT: 467 QTc: 472 Interpretive Statements SINUS RHYTHM POSSIBLE ANTERIOR MYOCARDIAL INFARCTION , PROBABLY OLD [30 ms Q WAVE IN V3/V4, OR R < 0.2 mV IN V4] Compared to ECG 07/16/2024 13:12:04 No significant changes Electronically Signed On 07-19-2024 15:22:19 SHOVE UP by Harpal Fang M.D.
[2024-07-19] MEDS: FUROSEMIDE 80 MG TABLET PO ×2 (09:32→17:19)
[2024-07-19] MEDS: amLODIPine BESYLATE 10 MG TABLET PO (09:32)
[2024-07-19] MEDS: PANTOPRAZOLE 40 MG TABLET PO (09:32)
[2024-07-19] MEDS: hydrALAZINE HCL 50 MG TABLET 100 MG PO ×3 (09:32→17:19)
[2024-07-19] MEDS: MAGNESIUM OXIDE 400 MG TABLET PO ×2 (09:32→17:19)
[2024-07-19] MEDS: carvediloL 25 MG TABLET PO ×2 (09:32→17:19)
[2024-07-19] MEDS: allopurinoL 100 MG TABLET PO (09:32)
[2024-07-19] MEDS: CLOPIDOGREL BISULFATE 75 MG TABLET PO (09:32)
[2024-07-19] MEDS: ISOSORBIDE MONONITRATE 30 MG TAB.ER.24H PO ×2 (09:32→21:32)
[2024-07-19] MEDS: POTASSIUM CHLORIDE 20 MEQ PACKET (FOR LIQUID) 60 MEQ PO (10:30)
--- NOTE | 2024-07-19 11:09 | P.PNIM_ITS ---
Progress Note: A&P Assessment and Plan (1) End stage renal disease: Code(s): N18.6 - End stage renal disease Status: Chronic Assessment and Plan: With fluid overload Continue peritoneal dialysis Nephrology following likely discharge tomorrow (2) HTN (hypertension): Code(s): I10 - Essential (primary) hypertension Status: Chronic Assessment and Plan: Resume home meds (3) Chronic diastolic CHF (congestive heart failure): Code(s): I50.32 - Chronic diastolic (congestive) heart failure Status: Acute Assessment and Plan: Fluid overloaded, continue Dialysis (4) Obstructive sleep apnea: Code(s): G47.33 - Obstructive sleep apnea (adult) (pediatric) Status: Acute Assessment and Plan: CPAP at nighttime (5) Gout: Code(s): M10.9 - Gout, unspecified Status: Acute Assessment and Plan: Stable Plan DVT prophylaxis on Sq Heparin Subjective Date/time seen: 07/19/24 11:09 Interval history: Morning she had an episode of atrial fibrillation but converted into sinus rhythm. She reports of having atrial fibrillation and had a ablation last . Currently she follows with . Review of Systems Review of Systems: Shortness of breath Exam Narrative: Patient is laying in a stretcher Const: General: comfortable, no acute distress, well developed, alert, awake, ill appearing chronically and edematous Nutritional Appearance: edematous Orientation/consciousness: patient oriented x3 HENMT: Head: normal to inspection, normocephalic and atraumatic Ears: hearing grossly normal bilaterally Face/Nose/Sinus: normal facial exam Face and sinus: normal facial exam Eyes: General: appearance normal, both eyes and all related structures Pupils: Equal, round and reactive pupils present EOM: EOMs intact bilaterally Neck: Neck: full ROM, no lymphadenopathy and no JVD Thyroid: thyroid normal Lymphatic: no lymphadenopathy noted Resp: Effort & Inspection: normal respiratory effort and able to speak in com plete sentences Auscultation: crackles and diminished lung sounds Cardio: Jugular venous distension: no JVD Rate: regular rate Rhythm: regular rhythm Heart sounds: S1 normal heart sound present and S2 normal heart sound present GI: Inspection: Pannus present and obesity Other: Peritoneal dialysis catheter in place : General: Yes deferred Skin: Rashes: no rashes Wounds: no wounds Neuro: General: patient oriented x3 and CN's II-XI intact bilaterally Cranial nerves: Yes CN's II-XII intact bilaterally and Yes Equal, round and reactive pupils present Cognition (Neuro): normal cognition Speech: normal speech Gait exam (Neuro): Normal gait present Motor exam (neuro): 5/5 motor strength present throughout Extrem: General: normal to inspection, full ROM, no joint enlargement and no pedal edema Other: Bilateral lower extremity edema 1+ Objective Data Vital Signs Vital Signs: Vital Signs - 24 hr 07/18/24 11:17 07/18/24 11:17 07/18/24 11:23 Temperature 98.0 F Pulse Rate 66 64 Respiratory Rate 18 Blood Pressure 141/50 H Pulse Oximetry 96 Oxygen Delivery Room Air Fraction of Inspired Oxygen 21 07/18/24 13:47 07/18/24 15:50 07/18/24 16:00 Temperature 98.1 F Pulse Rate 64 63 67 Respiratory Rate 18 18 Blood Pressure 125/37 L Pulse Oximetry 97 97 Oxygen Delivery Room Air Fraction of Inspired Oxygen 21 07/18/24 16:00 07/18/24 17:55 07/18/24 18:00 Temperature Pulse Rate 67 67 69 Respiratory Rate Blood Pressure Pulse Oximetry Oxygen Delivery Fraction of Inspired Oxygen 07/18/24 19:44 07/18/24 20:00 07/18/24 20:00 Temperature 98.4 F Pulse Rate 70 70 70 Respiratory Rate 18 18 Blood Pressure 131/40 L Pulse Oximetry 97 97 Oxygen Delivery Room Air Fraction of Inspired Oxygen 21 07/18/24 23:25 07/18/24 23:36 07/18/24 23:39 Temperature 98.1 F Pulse Rate 61 61 62 Respiratory Rate 18 18 Blood Pressure 136/33 L Pulse Oximetry 96 96 Oxygen Delivery Room Air Fraction of Inspired Oxygen 07/19/24 03:59 07/19/24 04:00 07/19/24 04:00 Temperature 98.1 F Pulse Rate 62 63 63 Respiratory Rate 19 19 Blood Pressure 150/37 H Pulse Oximetry 96 96 Oxygen Delivery Room Air Fraction of Inspired Oxygen 07/19/24 06:00 07/19/24 07:38 07/19/24 09:32 Temperature 98.1 F Pulse Rate 65 62 64 Respiratory Rate 18 Blood Pressure 149/42 H Pulse Oximetry 98 Oxygen Delivery Fraction of Inspired Oxygen 07/19/24 10:30 Temperature 98.1 F Pulse Rate 64 Respiratory Rate 18 Blood Pressure 149/42 H Pulse Oximetry Oxygen Delivery Fraction of Inspired Oxygen Intake/Output Intake/Output: Intake & Output 07/16/24 07/17/24 07/18/24 07/19/24 23:59 23:59 23:59 23:59 Intake Total 680 1120 200 Output Total 504 9592 5656 Balance 624 -0890 -0438 Meds/Results Medications: Active Medications Generic Name Dose Route Start Last Admin Trade Name Freq PRN Reason Stop Dose Admin Acetaminophen 500 mg 07/18/24 20:34 07/18/24 21:10 Acetaminophen 500 Mg Tablet PO 500 mg Q6H PRN Administration Mild Pain (1-3) or Fever Albuterol 2 puff 07/17/24 02:33 Albuterol Sulfate (*Sp) Aerosol 1 Puff INHALATION Q6HRT PRN Cough or SOB. Allopurinol 100 mg 07/17/24 09:00 07/19/24 09:32 Allopurinol 100 Mg Tablet PO 100 mg DAILY MACARIO Administration Amlodipine Besylate 10 mg 07/17/24 09:00 07/19/24 09:32 Amlodipine Besylate 10 Mg Tablet PO 10 mg DAILY MACARIO Administration Aspirin 81 mg 07/17/24 21:00 07/18/24 21:11 Aspirin 81 Mg Enteric Tablet PO 81 mg QHS MACARIO Administration Carvedilol 25 mg 07/17/24 09:00 07/19/24 09:32 Carvedilol 25 Mg Tablet PO 25 mg BIDWM MACARIO Administration Clopidogrel Bisulfate 75 mg 07/17/24 09:00 07/19/24 09:32 Clopidogrel Bisulfate 75 Mg Tablet PO 75 mg DAILY MACARIO Administration Dextrose 12.5 gm 07/17/24 02:19 07/17/24 08:20 Dextrose 50% 25 Gm/50 Ml Syringe IV PUSH 12.5 gm PRN PRN Administration Hypoglycemia Protocol Epoetin Ryan-epbx 10,000 units 07/18/24 09:00 07/18/24 19:31 Epoetin Ryan-Epbx 10,000 Units/Ml Vial SUB-Q 10,000 units MOWEFR@09 MACARIO Administration Furosemide 80 mg 07/17/24 10:08 07/19/24 09:32 Furosemide 80 Mg Tablet PO 80 mg BID MACARIO Administration Glucagon 1 mg 07/17/24 02:19 Glucagon For Inj 1 Mg Vial IM PRN PRN Hypoglycemia Protocol Glucose 15 gm 07/17/24 02:19 Glucose Oral Gel 15 Gm Of Glucse In 37.5 Gm Tube PO PRN PRN Hypoglycemia Protocol Heparin Sodium (Porcine) 5,000 units 07/17/24 22:00 07/19/24 07:11 Heparin Sodium 5,000 Units/Ml Vial SUB-Q 5,000 units Q8HR MACARIO Administration Hydralazine HCl 100 mg 07/17/24 09:00 07/19/24 09:32 Hydralazine Hcl 50 Mg Tablet PO 100 mg TID MACARIO Administration Dextrose 1,000 mls @ 100 mls/hr 07/17/24 02:19 Dextrose 5% 1,000 Ml IVPB PRN PRN Hypoglycemia Protocol Insulin Aspart 4 - 8 units 07/17/24 17:00 07/18/24 17:57 Insulin Aspart (*Bkc) 100 Units/Ml SUB-Q Not Given TIDWM MACARIO Protocol Insulin Aspart 1 - 2 units 07/17/24 22:00 07/18/24 21:11 Insulin Aspart (*Bkc) 100 Units/Ml SUB-Q Not Given HS MACARIO Protocol Isosorbide Mononitrate 30 mg 07/17/24 09:00 07/19/24 09:32 Isosorbide Mononitrate 30 Mg Tab.Er.24h PO 30 mg Q12HR MACARIO Administration Magnesium Oxide 400 mg 07/17/24 09:00 07/19/24 09:32 Magnesium Oxide 400 Mg Tablet PO 400 mg BID MACARIO Administration Nitroglycerin 0.4 mg 07/17/24 02:32 Nitroglycerin Sl 0.4 Mg Tablet SUBLINGUAL Q5MIN PRN Chest Pain Pantoprazole Sodium 40 mg 07/17/24 09:00 07/19/24 09:32 Pantoprazole 40 Mg Tablet PO 40 mg DAILY MACARIO Administration Perflutren Lipid Microsphere 0 ml 07/17/24 10:42 Perflutren Lipid Microspheres 1.5 Ml Vial Diluted To 10 Ml Total Volume IV PUSH 07/20/24 10:43 ONCE PRN adequate visualization Protocol Sodium Chloride 1 spray 07/18/24 18:04 Saline 0.65% Octavio Soln 44 Ml Btl NASAL Q6HR PRN Congestion Radiology Results: ITS Impressions Chest X-Ray 07/16/24 13:26 IMPRESSION: Pulmonary vascular congestion, subpleural and pulmonary interstitial edema Labs Labs: Laboratory Results - last 24 hr 07/18/24 07/18/24 07/18/24 11:27 15:52 19:49 WBC RBC Hgb Hct MCV MCH MCHC RDW Plt Count MPV Sodium Potassium Chloride Carbon Dioxide Anion Gap BUN Creatinine Estim Creat Clear Calc Estimated GFR Glucose POC Capillary Glucose 85 132 H 147 H Calcium Total Bilirubin AST ALT Alkaline Phosphatase Total Protein Albumin 07/19/24 07/19/24 04:51 07:37 WBC 12.3 H RBC 3.44 L Hgb 9.7 L Hct 31.7 L MCV 92.2 MCH 28.2 MCHC 30.6 L RDW 18.3 H Plt Count 162 MPV 9.2 Sodium 135 L Potassium 3.1 L Chloride 97 L Carbon Dioxide 27 Anion Gap 11 BUN 57 H Creatinine 6.60 H Estim Creat Clear Calc Not Reportable Estimated GFR 6 L Glucose 233 H POC Capillary Glucose 278 H Calcium 7.5 L Total Bilirubin 0.5 AST 16 ALT 13 Alkaline Phosphatase 81 Total Protein 5.0 L Albumin 2.8 L Hospitalist MIPS Advance Care Plan I have confirmed that the patient's Advanced Care Plan is present, code status is documented, or surrogate decision maker is listed in patient medical record.: Yes Medication Reconciliation I have utilized all available resources to obtain, update and review the patients current medications (includes all prescriptions, OTC, herbals, cannabis, and nutritional supplements).: Yes
--- NOTE | 2024-07-19 11:31 | P.PNNP_ITS ---
Subjective Date/time seen: 07/19/24 11:31 Interval history: Follow-up for end stage renal disease on peritoneal dialysis. Tolerated peritoneal dialysis overnight with approximately 1544cc ultrafiltration/fluid removal; she feels significantly better at the time of my visit; breathing/respiratory status has improved and weaned off supplemental oxygen; at bedside and we discussed the situation. Objective Data Vital Signs Vital Signs: Vital Signs Temp Pulse Resp BP Pulse Ox O2 Del Method FiO2 07/19/24 11:29 98.2 F 64 18 126/77 99 07/19/24 10:30 98.1 F 64 18 149/42 H 07/19/24 10:00 80 07/19/24 09:32 64 07/19/24 08:00 64 07/19/24 08:00 Room Air 07/19/24 07:38 98.1 F 62 18 149/42 H 98 07/19/24 06:00 65 07/19/24 04:00 63 19 96 Room Air 07/19/24 04:00 63 07/19/24 03:59 98.1 F 62 19 150/37 H 96 07/18/24 23:39 62 18 96 Room Air 07/18/24 23:36 61 07/18/24 23:25 98.1 F 61 18 136/33 L 96 07/18/24 20:00 70 07/18/24 20:00 70 18 97 Room Air 21 07/18/24 19:44 98.4 F 70 18 131/40 L 97 Intake/Output Intake/Output: Intake & Output 07/16/24 07/17/24 07/18/24 07/19/24 23:59 23:59 23:59 23:59 Intake Total 680 1120 880 Output Total 504 4717 7432 Balance 965 -1758 -029 Meds/Results Medications: Active Medications Generic Name Dose Route Start Last Admin Trade Name Freq PRN Reason Stop Dose Admin Acetaminophen 500 mg 07/18/24 20:34 07/18/24 21:10 Acetaminophen 500 Mg Tablet PO 500 mg Q6H PRN Administration Mild Pain (1-3) or Fever Albuterol 2 puff 07/17/24 02:33 Albuterol Sulfate (*Sp) Aerosol 1 Puff INHALATION Q6HRT PRN Cough or SOB. Allopurinol 100 mg 07/17/24 09:00 07/19/24 09:32 Allopurinol 100 Mg Tablet PO 100 mg DAILY MACARIO Administration Amlodipine Besylate 10 mg 07/17/24 09:00 07/19/24 09:32 Amlodipine Besylate 10 Mg Tablet PO 10 mg DAILY MACARIO Administration Aspirin 81 mg 07/17/24 21:00 07/18/24 21:11 Aspirin 81 Mg Enteric Tablet PO 81 mg QHS MACARIO Administration Carvedilol 25 mg 07/17/24 09:00 07/19/24 17:19 Carvedilol 25 Mg Tablet PO 25 mg BIDWM MACARIO Administration Clopidogrel Bisulfate 75 mg 07/17/24 09:00 07/19/24 09:32 Clopidogrel Bisulfate 75 Mg Tablet PO 75 mg DAILY MACARIO Administration Dextrose 12.5 gm 07/17/24 02:19 07/17/24 08:20 Dextrose 50% 25 Gm/50 Ml Syringe IV PUSH 12.5 gm PRN PRN Administration Hypoglycemia Protocol Epoetin Ryan-epbx 10,000 units 07/18/24 09:00 07/18/24 19:31 Epoetin Ryan-Epbx 10,000 Units/Ml Vial SUB-Q 10,000 units MOWEFR@09 MACARIO Administration Furosemide 80 mg 07/17/24 10:08 07/19/24 17:19 Furosemide 80 Mg Tablet PO 80 mg BID MACARIO Administration Glucagon 1 mg 07/17/24 02:19 Glucagon For Inj 1 Mg Vial IM PRN PRN Hypoglycemia Protocol Glucose 15 gm 07/17/24 02:19 Glucose Oral Gel 15 Gm Of Glucse In 37.5 Gm Tube PO PRN PRN Hypoglycemia Protocol Heparin Sodium (Porcine) 5,000 units 07/17/24 22:00 07/19/24 14:46 Heparin Sodium 5,000 Units/Ml Vial SUB-Q 5,000 units Q8HR MACARIO Administration Hydralazine HCl 100 mg 07/17/24 09:00 07/19/24 17:19 Hydralazine Hcl 50 Mg Tablet PO 100 mg TID MACARIO Administration Dextrose 1,000 mls @ 100 mls/hr 07/17/24 02:19 Dextrose 5% 1,000 Ml IVPB PRN PRN Hypoglycemia Protocol Insulin Aspart 4 - 8 units 07/17/24 17:00 07/19/24 17:20 Insulin Aspart (*Bkc) 100 Units/Ml SUB-Q Not Given TIDWM MACARIO Protocol Insulin Aspart 1 - 2 units 07/17/24 22:00 07/18/24 21:11 Insulin Aspart (*Bkc) 100 Units/Ml SUB-Q Not Given HS [facility] Protocol Isosorbide Mononitrate 30 mg 07/17/24 09:00 07/19/24 09:32 Isosorbide Mononitrate 30 Mg Tab.Er.24h PO 30 mg Q12HR MACARIO Administration Magnesium Oxide 400 mg 07/17/24 09:00 07/19/24 17:19 Magnesium Oxide 400 Mg Tablet PO 400 mg BID MACARIO Administration Nitroglycerin 0.4 mg 07/17/24 02:32 Nitroglycerin Sl 0.4 Mg Tablet SUBLINGUAL Q5MIN PRN Chest Pain Pantoprazole Sodium 40 mg 07/17/24 09:00 07/19/24 09:32 Pantoprazole 40 Mg Tablet PO 40 mg DAILY MACARIO Administration Perflutren Lipid Microsphere 0 ml 07/17/24 10:42 Perflutren Lipid Microspheres 1.5 Ml Vial Diluted To 10 Ml Total Volume IV PUSH 07/20/24 10:43 ONCE PRN adequate visualization Protocol Sodium Chloride 1 spray 07/18/24 18:04 Saline 0.65% Octavio Soln 44 Ml Btl NASAL Q6HR PRN Congestion Radiology Results: ITS Impressions Chest X-Ray 07/16/24 13:26 IMPRESSION: Pulmonary vascular congestion, subpleural and pulmonary interstitial edema Labs Labs: Laboratory Tests 07/19/24 04:51 07/19/24 04:51 Sodium 135 L Potassium 3.1 L Chloride 97 L Carbon Dioxide 27 Anion Gap 11 BUN 57 H Creatinine 6.60 H Estimated GFR 6 L Glucose 233 H Calcium 7.5 L Total Bilirubin 0.5 AST 16 ALT 13 Alkaline Phosphatase 81 Total Protein 5.0 L Albumin 2.8 L
[2024-07-19 12:08] LABS: Glucose Point of Care 182 mg/dl (65-105)
[2024-07-19 12:17] LABS: Magnesium 1.6 mg/dL (1.6-2.3); Phosphorus 3.7 mg/dL (2.5-4.5); Potassium 4.1 mmol/L (3.4-5.0)
[2024-07-19 17:17] LABS: Glucose Point of Care 114 mg/dl (65-105)
--- NOTE | 2024-07-19 17:59 | PC.NURSE ---
Pt transferred to 242 via wheelchair.
--- NOTE | 2024-07-19 18:05 | PC.NURSE ---
This patient, Leidy Voss, was received from IMU on 07/19/24 at 1800. Patient/family oriented to unit policies and routines
[2024-07-19 20:45] LABS: Glucose Point of Care 216 mg/dl (65-105)
[2024-07-19] MEDS: INSULIN ASPART (*BKC) 100 UNITS/ML SUB-Q (21:31)
[2024-07-19] MEDS: ASPIRIN 81 MG ENTERIC TABLET PO (21:32)
[2024-07-19] MEDS: ACETAMINOPHEN 500 MG TABLET PO (21:36)
[2024-07-19 23:05] LABS: Glucose Point of Care 219 mg/dl (65-105)
[2024-07-20 05:08] VITALS: BP 129/49; PULSE 62; RESP 18; TEMP 36.7; O2SAT 97
[2024-07-20] MEDS: HEPARIN SODIUM 5,000 UNITS/ML VIAL 5000 UNITS SUB-Q ×2 (05:30→13:29)
[2024-07-20 06:40] VITALS: BP 129/49; PULSE 62; RESP 18; TEMP 36.7
[2024-07-20 08:26] LABS: Glucose Point of Care 118 mg/dl (65-105)
[2024-07-20 08:35] VITALS: BP 150/36; PULSE 66; O2SAT 100
[2024-07-20 08:36] VITALS: PULSE 66
[2024-07-20] MEDS: amLODIPine BESYLATE 10 MG TABLET PO (08:36)
[2024-07-20] MEDS: hydrALAZINE HCL 50 MG TABLET 100 MG PO ×2 (08:36→13:29)
[2024-07-20] MEDS: CLOPIDOGREL BISULFATE 75 MG TABLET PO (08:36)
[2024-07-20] MEDS: carvediloL 25 MG TABLET PO (08:36)
[2024-07-20] MEDS: allopurinoL 100 MG TABLET PO (08:36)
[2024-07-20] MEDS: FUROSEMIDE 80 MG TABLET PO (08:36)
[2024-07-20] MEDS: ISOSORBIDE MONONITRATE 30 MG TAB.ER.24H PO (08:37)
[2024-07-20] MEDS: PANTOPRAZOLE 40 MG TABLET PO (08:37)
[2024-07-20] MEDS: MAGNESIUM OXIDE 400 MG TABLET PO (08:37)
[2024-07-20] MEDS: EPOETIN ALFA-EPBX 10,000 UNITS/ML VIAL 10000 UNITS SUB-Q (10:22)
[2024-07-20 12:16] LABS: Glucose Point of Care 148 mg/dl (65-105)
--- NOTE | 2024-07-20 12:30 | PM.PNNEP ---
Subjective Date/time seen: 07/20/24 08:30 Interval history: Follow-up for end stage renal disease on peritoneal dialysis. Objective Data Vital Signs Vital Signs: Vital Signs Temp Pulse Resp BP Pulse Ox O2 Del Method FiO2 07/20/24 08:00 66 150/36 H 100 Room Air 07/20/24 06:40 98.1 F 62 18 129/49 L 07/20/24 05:08 98.1 F 62 18 129/49 L 97 07/20/24 04:29 CPAP 07/19/24 20:31 97 CPAP 21 07/19/24 20:31 66 97 CPAP 07/19/24 20:25 97.9 F 65 17 131/61 100 07/19/24 20:00 CPAP 07/19/24 18:00 75 07/19/24 17:19 75 07/19/24 16:00 75 07/19/24 15:54 98.5 F 65 20 121/30 L 98 07/19/24 14:00 78 Intake/Output Intake/Output: Intake & Output 07/17/24 07/18/24 07/19/24 07/20/24 23:59 23:59 23:59 23:59 Intake Total 680 1120 880 240 Output Total 504 3181 1661 2149 Balance 559 -0453 -539 -9989 Meds/Results Medications: Active Medications Generic Name Dose Route Start Last Admin Trade Name Freq PRN Reason Stop Dose Admin Acetaminophen 500 mg 07/18/24 20:34 07/19/24 21:36 Acetaminophen 500 Mg Tablet PO 500 mg Q6H PRN Administration Mild Pain (1-3) or Fever Albuterol 2 puff 07/17/24 02:33 Albuterol Sulfate (*Sp) Aerosol 1 Puff INHALATION Q6HRT PRN Cough or SOB. Allopurinol 100 mg 07/17/24 09:00 07/20/24 08:36 Allopurinol 100 Mg Tablet PO 100 mg DAILY MACARIO Administration Amlodipine Besylate 10 mg 07/17/24 09:00 07/20/24 08:36 Amlodipine Besylate 10 Mg Tablet PO 10 mg DAILY MACARIO Administration Aspirin 81 mg 07/17/24 21:00 07/19/24 21:32 Aspirin 81 Mg Enteric Tablet PO 81 mg QHS MACARIO Administration Carvedilol 25 mg 07/17/24 09:00 07/20/24 08:36 Carvedilol 25 Mg Tablet PO 25 mg BIDWM MACARIO Administration Clopidogrel Bisulfate 75 mg 07/17/24 09:00 07/20/24 08:36 Clopidogrel Bisulfate 75 Mg Tablet PO 75 mg DAILY MACARIO Administration Dextrose 12.5 gm 07/17/24 02:19 07/17/24 08:20 Dextrose 50% 25 Gm/50 Ml Syringe IV PUSH 12.5 gm PRN PRN Administration Hypoglycemia Protocol Epoetin Ryan-epbx 10,000 units 07/18/24 09:00 07/20/24 10:22 Epoetin Ryan-Epbx 10,000 Units/Ml Vial SUB-Q 10,000 units MOWEFR@09 MACARIO Administration Furosemide 80 mg 07/17/24 10:08 07/20/24 08:36 Furosemide 80 Mg Tablet PO 80 mg BID MACARIO Administration Glucagon 1 mg 07/17/24 02:19 Glucagon For Inj 1 Mg Vial IM PRN PRN Hypoglycemia Protocol Glucose 15 gm 07/17/24 02:19 Glucose Oral Gel 15 Gm Of Glucse In 37.5 Gm Tube PO PRN PRN Hypoglycemia Protocol Heparin Sodium (Porcine) 5,000 units 07/17/24 22:00 07/20/24 05:30 Heparin Sodium 5,000 Units/Ml Vial SUB-Q 5,000 units Q8HR MACARIO Administration Hydralazine HCl 100 mg 07/17/24 09:00 07/20/24 08:36 Hydralazine Hcl 50 Mg Tablet PO 100 mg TID MACARIO Administration Dextrose 1,000 mls @ 100 mls/hr 07/17/24 02:19 Dextrose 5% 1,000 Ml IVPB PRN PRN Hypoglycemia Protocol Insulin Aspart 4 - 8 units 07/17/24 17:00 07/20/24 12:20 Insulin Aspart (*Bkc) 100 Units/Ml SUB-Q Not Given TIDWM [facility] Protocol Insulin Aspart 1 - 2 units 07/17/24 22:00 07/19/24 21:31 Insulin Aspart (*Bkc) 100 Units/Ml SUB-Q 1 units HS MACARIO Administration Protocol Isosorbide Mononitrate 30 mg 07/17/24 09:00 07/20/24 08:37 Isosorbide Mononitrate 30 Mg Tab.Er.24h PO 30 mg Q12HR MACARIO Administration Magnesium Oxide 400 mg 07/17/24 09:00 07/20/24 08:37 Magnesium Oxide 400 Mg Tablet PO 400 mg BID MACARIO Administration Nitroglycerin 0.4 mg 07/17/24 02:32 Nitroglycerin Sl 0.4 Mg Tablet SUBLINGUAL Q5MIN PRN Chest Pain Pantoprazole Sodium 40 mg 07/17/24 09:00 07/20/24 08:37 Pantoprazole 40 Mg Tablet PO 40 mg DAILY MACARIO Administration Sodium Chloride 1 spray 07/18/24 18:04 Saline 0.65% Octavio Soln 44 Ml Btl NASAL Q6HR PRN Congestion Radiology Results: ITS Impressions Chest X-Ray 07/16/24 13:26 IMPRESSION: Pulmonary vascular congestion, subpleural and pulmonary interstitial edema Labs Labs: Laboratory Results - last 24 hr 07/19/24 07/19/24 07/19/24 15:55 20:23 23:02 POC Capillary Glucose 114 H 216 H 219 H 07/20/24 07/20/24 08:09 11:47 POC Capillary Glucose 118 H 148 H
--- NOTE | 2024-07-20 13:38 | P.DS_ITS ---
DS: Admitting Diagnosis Discharge Date 07/20/2024 Admitting Diagnosis Shortness of Breath/Dyspnea DS: Discharge Diagnosis Discharge Diagnosis (1) End stage renal disease: Code(s): N18.6 - End stage renal disease Status: Chronic Assessment and Plan: With fluid overload Continue peritoneal dialysis Nephrology following likely discharge tomorrow (2) HTN (hypertension): Code(s): I10 - Essential (primary) hypertension Status: Chronic Assessment and Plan: Resume home meds (3) Chronic diastolic CHF (congestive heart failure): Code(s): I50.32 - Chronic diastolic (congestive) heart failure Status: Acute Assessment and Plan: Fluid overloaded, continue Dialysis (4) Obstructive sleep apnea: Code(s): G47.33 - Obstructive sleep apnea (adult) (pediatric) Status: Acute Assessment and Plan: CPAP at nighttime (5) Gout: Code(s): M10.9 - Gout, unspecified Status: Acute Assessment and Plan: Stable DS: Summary Hospital Course Hospital Course: 78-year-old female with past medical history significant for end-stage renal disease on peritoneal dialysis, type diabetes mellitus, coronary artery disease, coronary artery bypass graft, obstructive sleep apnea, obesity. Patient presents to the emergency room due to shortness of breath, completed course of antibiotics for sinusitis. Denies any fevers, rigors, chills, nausea, vomiting, diarrhea. Shortness of breath is at exertion has some bilateral lower extremity edema. Nephrology evaluated the patient and reported : Patient is on peritoneal dialysis.The patient has volume overload.It looks like she is not getting fluid off very well with the peritoneal dialysis. She says that her KT/V is good so I think the dialysis is adequate for clearance of poisons but for some reason the fluid is not coming off. I think she would be better served by changing the outpatient regimen to the same at night plus a green bag during the day but draining at noon so that she does not resorptive. This would go a long way toward keeping the fluid off. In addition the patient does frequently have troubles with her machine. She says she is not constipated. I assumed care 07/19. Patient continues to receive [facility] without any issues. On 07/20 spoke with who agrees to discharge the patient with dialysis instructions.Patient was previously taking Lasix 100 mg p.o. b.i.d.. It has been decreased to 80 mg p.o. b.i.d.Follow-up with the primary care physician and if necessary increase or reduce the dosage of Lasix. Status at Discharge Cognitive/behavioral status at discharge: Stable Time Spent with Patient Time attestation: Total time spent providing and/or coordinating discharge services: 45 minute Exam Narrative: Patient is laying in a stretcher Const: General: comfortable, no acute distress, well developed, alert, awake, ill appearing chronically and edematous Nutritional Appearance: edematous Orientation/consciousness: patient oriented x3 HENMT: Head: normal to inspection, normocephalic and atraumatic Ears: hearing grossly normal bilaterally Face/Nose/Sinus: normal facial exam Face and sinus: normal facial exam Eyes: General: appearance normal, both eyes and all related structures Pupils: Equal, round and reactive pupils present EOM: EOMs intact bilaterally Neck: Neck: full ROM, no lymphadenopathy and no JVD Thyroid: thyroid normal Lymphatic: no lymphadenopathy noted Resp: Effort & Inspection: normal respiratory effort and able to speak in complete sentences Auscultation: crackles and diminished lung sounds Cardio: Jugular venous distension: no JVD Rate: regular rate Rhythm: regular rhythm Heart sounds: S1 normal heart sound present and S2 normal heart sound present GI: Inspection: Pannus present and obesity Other: Peritoneal dialysis catheter in place : General: Yes deferred Skin: Rashes: no rashes Wounds: no wounds Neuro: General: patient oriented x3 and CN's II-XI intact bilaterally Cranial nerves: Yes CN's II-XII intact bilaterally and Yes Equal, round and reactive pupils present Cognition (Neuro): normal cognition Speech: normal speech Gait exam (Neuro): Normal gait present Motor exam (neuro): 5/5 motor strength present throughout Extrem: General: normal to inspection, full ROM, no joint enlargement and no pedal edema Other: Bilateral lower extremity edema 1+ DS: Data Data Completed and Pending Labs on day of discharge: Labs from last 24 hours 07/20/24 07/20/24 07/19/24 11:47 08:09 23:02 POC Capillary Glucose 148 H 118 H 219 H 07/19/24 07/19/24 20:23 15:55 POC Capillary Glucose 216 H 114 H Preliminary micro results at discharge 07/17/24 01:06 Blood Culture - Preliminary Blood 07/17/24 01:06 Blood Culture - Preliminary Blood Discharge Plan Discharge Attending physician on discharge: Vidal Chun Consulting providers: Yasmany Esquivel Discharging Clinician: Vidal Chun Anticipated Discharge Date/Time: 07/20/24 13:29 Patient Disposition: Home, Self-Care Activity: as tolerated Diet: renal Discharge Instructions: Needs to follow up with Nephrology for peritoneal dialysis. Needs to follow-up with the PCP within the week upon discharge. Patient was previously taking Lasix 100 mg p.o. b.i.d.. It has been decreased to 80 mg p.o. b.i.d. Follow-up with the primary care physician and if necessary increase or reduce the dosage of Lasix. Take precautions to avoid falls. Rise slowly from a lying or sitting position. Pause before standing or walking. Contact your doctor or call 911 and come to the Emergency Room if you have any type of trauma, lightheadedness with standing or other worrisome symptoms. Avoid NSAIDs (ibuprofen, naproxen, Aleve). Tylenol is safe to take. Thank you for using [facility] for your health care needs. Patient Instructions: Antibiotic Form, Heart Failure (DC), Peritoneal Dialysis Catheter Care (DC), End Stage Kidney Disease (DC) Patient Language: Polish Stand Alone Forms: General Discharge Information Follow-up/Referrals: Yasmany Esquivel MD [Physician] - (Peritoneal dialysis follow-up) Discharge Medications: Continued clopidogrel 75 mg tablet 75 mg PO DAILY atorvastatin 40 mg tablet 40 mg PO HS carvedilol 25 mg tablet 25 mg PO BID hydralazine 100 mg tablet 100 mg PO TID allopurinol 300 mg tablet 100 mg PO DAILY isosorbide mononitrate 30 mg tablet extended release 24 hr 30 mg PO BID nitroglycerin 0.4 mg tablet, sublingual 0.4 mg sublingual Q5MIN PRN (Reason: Chest Pain) aspirin 81 mg Capsule 81 mg PO HS magnesium oxide 400 mg PO BID amlodipine 10 mg tablet 10 mg PO DAILY pantoprazole 40 mg tablet,delayed release (DR/EC) 40 mg PO DAILY glimepiride 4 mg tablet 4 mg PO BID furosemide 80 mg tablet 80 mg PO BID Rx Instructions: Pt takes 100mg PO BID. cholecalciferol (vitamin D3) [Vitamin D3] 50 mcg (2,000 unit) capsule 6,000 unit PO DAILY potassium chloride 10 mEq tablet extended release 10 meq PO DAILY albuterol sulfate 90 mcg/actuation HFA aerosol inhaler 2 puff INHALATION Q6H PRN (Reason: Cough or SOB.) azithromycin 250 mg tablet 250 mg PO DAILY Rx Instructions: Take 250mg PO daily for 5 days. Last dose would be on 07/17/24. (DME) True Metrix Glucose Test Strip Strip MISCELLANEOUS [facility]-Anmol Rx 1-60-300 mg-mg-mcg tablet 1 tablet PO DAILY (DME) lancets [Ultra Thin Lancets] 30 gauge misc MISCELLANEOUS Discontinued furosemide 20 mg tablet 20 mg PO BID Patient Comments: Pt takes 100mg PO BID. Date of admission: 07/16/24 20:49 Primary Care Provider: PHYSICIAN NOT ON STAFF,NONSTAFF Admitting Provider: Dipti Fung V. Attending physician on admission: Dipti Fung V. Condition: Stable
--- OUTSIDE RECORDS SUMMARY | 2024-07-28 06:31 | XMS_ITS | Data Portability ---
Author Organization [facility], [address] [place] [address] Neurology ([place]) Address [address] [place] [address] Care Team Providers Care Electric Clock Mechanic Name Role Phone MARYELLEN MANUEL Primary Care Provider Assessment Encounter Date Assessment Date Assessment LastModified by Organization Details LastModified Time 02/09/2024 02/09/2024 Discussed the importance of using sunscreen SPF 30 as well as wearing a wide brimmed hat. Monitor for any new or changing moles or skin lesions. Recommended yearly full-body skin checks. ISK right cheek: Reassured patient that these were benign lesions. Discussed pathophysiology. No treatment is required. Discussed treatment with liquid nitrogen. Patient is aware that the area can blister and scab with the possibility of a scar. Patient also aware can leave hypopigmented scarring in the areas may not resolve completely with one treatment of liquid nitrogen. They may recur and patient may need more treatment. Discussed the risks, benefits, and alternatives to treatment. Patient opted for treatment with liquid nitrogen. Patient tolerated the procedure well. Wound care instructions given. [email or web address] Not available 02/09/2024 10:21:14 Plan of Treatment Reminders Order Date Submit Date Provider Last Modified By Organization Details Last Modified Time Details Appointments Establish ed Patient 15.EST 2024 09:00A M Neha Drummond Not available Not available Not available Lab None recorded. Referral None recorded. Procedures None recorded. Surgeries None recorded. Imaging None recorded. Medication Orders None recorded. Patient TargetsNo targets recorded. Patient Instructions Encounter Date Encounter Id Patient Instructions Last Modified By Organization Details Last Modified Time 02/09/2024 [id number] Plan of care reviewed and discussed with patient. Patient verbalizes understanding and has no questions. Professional minutes spent face to face, chart review, and chart documentation with patient: 15 [email or web address] Not available 02/09/2024 10:21:02 Reason for Referral None Reported. Results Created Date Observation Date Name Description Value Unit Range Abnormal Flag Note LastModifiedBy Organization Detail LastModifiedTime 01/16/20 24 11/12/2022 imagi ng/di marlinos tic resul t No observ ation record ed. [email or web address] Not Available 10:07:30 Result Notes None recorded. Problems Name Problem SNOMED Code Status Onset Date Resolution Date Notes Provider Name and Address Organization Details Recorded Time Itching of skin 276745162 Active 2023 Neha Drummond PA-C [address], [place], [address], [facility] 4 16:53:14 Inflamed seborrheic keratosis 365134808 Active 2023 Neha Drummond PA-C [address], [place], [address], [facility] 4 16:53:19 Solar degeneration 22396529 Active 2023 Neha Drummond PA-C [address], [place], [address], [facility] 4 16:53:25 Problem Notes None recorded. Procedures Surgical History None recorded. Imaging Results Imaging Date Name Status LastModified by Organiz ation Details LastModified Time 11/12/2022 imaging/diag nostic result completed [email or web address] Information not available 01/16/2024 10:07:30 Procedure Notes None recorded. Medical Equipment None Reported. Allergies Allergen ID Allergen Name Allergen Category Reaction Reaction Severity Criticality Documentation Date Start Date Code Code System Note Provider Name and Address Organization Details Recorded Time [id number] ciproflox acin hydrochlo ride medicatio n dizziness Not available Not available 08/03/20232015 17542 RxNorm React ion: Dizzi ness; Nause a; Comme nt: React ion Date: 03 Jul 2015 ; Not Available Not Available Not Available [id number] b1130 acetamino phen / hydrocodo ne medicatio n nausea Not available Not available 08/03/20232015 86838 2 RxNorm React ion: Nause a; Comme nt: React ion Date: 03 Jul 2015 ; Not Available Not Available Not Available [id number] 2824e labetalol hydrochlo ride medicatio n Not available Not available Not available 08/03/20232015 29720 3 RxNorm Comme nt: React ion Date: 03 Jul 2015 ; Not Available Not Available Not Available [id number] 2824e purified protein derivativ e of tuberculi n medicatio n Not available Not available Not available 08/03/20232015 8948 RxNorm Comme nt: React ion Date: 03 Jul 2015 ; Not Available Not Available Not Available [id number] 2824e simvastat in medicatio n Not available Not available Not available 08/03/20232015 64340 RxNorm Comme nt: React ion Date: 03 Jul 2015 ; Not Available Not Available Not Available [id number] 2824e terbinafi ne hydrochlo ride medicatio n Not available Not available Not available 08/03/20232015 50498 8 RxNorm Comme nt: React ion Date: 03 Jul 2015 ; Not Available Not Available Not Available [id number] 2824e Product containin g penicilli n and antibioti c (product) medicatio n Not available Not available Not available 08/03/20232015 28491 05 SNOMED Comme nt: React ion Date: 03 Jul 2015 ; Not Available Not Available Not Available [id number] 2824e tramadol hydrochlo ride medicatio n Not available Not available Not available 08/03/20232015 60923 RxNorm Comme nt: React ion Date: 03 Jul 2015 ; Not Available Not Available Not Available [id number] 2824e Substance with sulfonami de structure and antibacte rial mechanism of action (substanc e) medicatio n Not available Not available Not available 08/03/20232015 22472 8003 SNOMED Comme nt: React ion Date: 03 Jul 2015 ; Not Available Not Available Not Available Medications Name Sig Start Date Stop Date Status Note LastModified by Organization Details LastModified Time [facility] ultra thin lancets 30g TEST BLOOD SUGAR TWICE DAILY active Not Available Not Available No t Available atorvastatin 40 mg tablet TAKE 1 TABLET BY MOUTH EVERY DAY active Not Available Not Available No t Available carvedilol 25 mg tablet active Not Available Not Available Not Available carvedilol 12.5 mg tablet TAKE 1 TABLET BY MOUTH TWICE DAILY active Not Available Not Available No t Available hydrocodone 5 mg-acetamino phen 325 mg tablet TAKE 1 TABLET BY MOUTH EVERY 4 HOURS NEEDED FOR PAIN active Not Available Not Available No t Available isosorbide mononitrate ER 30 mg tablet,exten ded release 24 hr TAKE 1 TABLET BY MOUTH TWICE DAILY active Not Available Not Available No t Available Juana-Anmol Rx 1 mg-60 mg-300 mcg tablet TAKE 1 TABLET BY MOUTH ONCE DAILY active Not Available Not Available No t Available clopidogrel 75 mg tablet TAKE 1 TABLET BY MOUTH ONCE DAILY active Not Available Not Available No t Available allopurinol 100 mg tablet TAKE 1 TABLET BY MOUTH ONCE DAILY active Not Available Not Available No t Available cefadroxil 500 mg capsule active Not Available Not Available Not Available aspirin 325 mg tablet,delay ed release active Not Available Not Available N ot Available amlodipine 10 mg tablet TAKE 1 TABLET BY MOUTH ONCE DAILY active Not Available Not Available No t Available doxycycline monohydrate 100 mg capsule active Not Available Not Available Not Available hydralazine 100 mg tablet TAKE 1 TABLET BY MOUTH THREE TIMES DAILY active Not Available Not Available Not Available pantoprazole 40 mg tablet,delay ed release TAKE 1 TABLET BY MOUTH EVERY DAY active Not Available Not Available No t Available glimepiride 4 mg tablet TAKE 1 TABLET BY MOUTH NEEDED WHEN BLOOD SUGARS ARE UP active Not Available Not Available No t Available nitroglyceri n 0.[address] ONE TABLET UNDER TONGUE NEEDED FOR CHEST PAIN active Not Available Not Available N ot Available hydralazine 50 mg tablet TAKE 1 TABLET BY MOUTH THREE TIMES DAILY active Not Available Not Available Not Available methylpredni solone 4 mg tablets in a dose pack FOLLOW PACKAGE DIRECTIONS active Not Available Not Available N ot Available SSD 1 % topical cream APPLY TO AFFECTED AREA DAILY active Not Available Not Available N ot Available cefdinir 300 mg capsule active Not Available Not Available N ot Available hydroxyzine pamoate 25 mg capsule active Not Available Not Available N ot Available Ultra Thin Lancets 30 gauge USE TWICE A DAY TO CHECK BLOOD SUGAR active Not Available Not Available No t Available True Metrix Glucose Test Strip TEST BLOOD SUGAR TWICE DAILY active Not Available Not Available No t Available Arnuity Ellipta 100 mcg/actuatio n powder for inhalation INHALE 1 PUFF INTO THE LUNGS DAILY active Not Available Not Available No t Available Dexcom G7 Job Press Feeder USE DIRECTED FOR CHECKING SUGARS active Not Available Not Available No t Available Dexcom G7 Sensor device USE TO CHECK SUGARS AND CHANGE EVERY 10 DAYS active Not Available Not Available No t Available Vitals None Recorded Social History None recorded. Functional Status None recorded. Mental Status None recorded. Family History Nothing Reported. Medical History No medical history recorded. Gynecological HistoryNo gynecological history recorded. Obstetrics History GPAL:G 0 P 0 0 0 0 Past Encounters Encounter ID Performer Location Encounter Start Date Encounter Closed Date Diagnosis/Indication Diagnosis SNOMED-CT Code Diagnosis ICD10 Code Diagnosis Note [id number] Neha Drummond PA-C [facility] ([place]) [address] [place] [address] 02/09/2024 10:02:01 02/09/2024 10:22:31 Itching of skin 386100483 L29.9 Inflamed s eborrheic keratosis 199634859 L82.0 Solar degeneration 25291 006 L57.9 Health Concerns Section Related Observation LastModified by Organization Detai ls LastModified Time None Recorded Concern Status LastModified by Organization Details LastModified Time None Recorded Advance Directives Directive None Recorded Payers Encounter Date Sequence Insurance Name Policy Number Policy Manzo Covered Member ID Manzo Member ID Guarantor Name 02/09/2024 1 [place] Leidy Voss [id number] Leidy Voss 02/09/2024 2 [place] [id number] Leidy Voss [id number] Leidy Voss Notes Date Note Type Note Provider Name and Address Organization Details Recorded Time 02/09/2024 text/html 6 mo recheck of ISK treated with cryo to right shoulder. Also itching treated to right shoulder/upper back with triamcinolone cream. 6 mo recheck. right shoulder healing well. and itching has subsided. no other concerns. Neha Drummond PA-C [address] [place] [address], [phone], [facility] 02/09/2024 10:21:38 OBGyn Episode No OBEpisode recorded.
== END 2024-07-20 15:10 | disposition home or self-care (01) | DRG 640 ==
LOC: ANHED 20:52 → ANHIMU 07-17 01:21 → ANH2MED 07-20 13:31 → ANHIMU 07-22 10:42
PROVIDERS: Emergency Medicine; Internal Medicine; Internal Medicine Nephrology; Physician Assistant; Admitting Provider Internal Medicine; Emergency Provider Emergency Medicine; Visit Provider General Practice
DX: E87.70 Fluid overload, unspecified (principal); N18.6 End stage renal disease; I13.2 Hypertensive heart and chronic kidney disease with heart failure and with stage 5 chronic kidney disease, or end stage renal disease; I50.32 Chronic diastolic (congestive) heart failure; I25.10 Atherosclerotic heart disease of native coronary artery without angina pectoris; E11.22 Type 2 diabetes mellitus with diabetic chronic kidney disease; G47.33 Obstructive sleep apnea (adult) (pediatric); Z20.822 Contact with and (suspected) exposure to COVID-19; I25.2 Old myocardial infarction; Z99.2 Dependence on renal dialysis; Z79.02 Long term (current) use of antithrombotics/antiplatelets; Z79.82 Long term (current) use of aspirin; Z86.0101 Personal history of adenomatous and serrated colon polyps; Z87.11 Personal history of peptic ulcer disease; Z95.1 Presence of aortocoronary bypass graft; Z95.5 Presence of coronary angioplasty implant and graft
CPT/HCPCS: 36415; 71046; 80053; 82948; 83735; 83880; 84100; 84132; 84484; 85025; 85027; 85610; 85730; 86706; 87040; 87340; 87637; 87641; 90945; 93005; 93306; 96374; 96375; 99285; A9270; G0378; J1644; J1815; Q5105

== ENCOUNTER 2025-01-19 11:40 | Emergency (ER) | payer MEDICARE, SELFPAY ==
--- NOTE | ~2025-01-19 | CT_ITS ---
CT brain wo con Ordering provider: Aakash Klein MD History: 79 years Female with . Slurred speech on Chemo resolved . Comparison: None. Technique: CT of the head without contrast. Radiation reduction technique utilized.The dose-length pr oduct was 529.67 mGy-cm. FINDINGS: BRAIN PARENCHYMA AND CSF SPACES: Mild leukoaraiosis and diffuse cortical atrophy. Mild atheromatous d isease. No midline shift, mass effect or hemorrhage. The brain parenchyma and CSF spaces are otherwi se normal. VISUALIZED PARANASAL SINUSES: Well aerated. MASTOIDS: Well aerated. BONES: The bones appear intact. SOFT TISSUES: Visualized nasopharynx is normal. Superficial soft tissues are normal. IMPRESSION: No acute intracranial findings. Reviewed, dictated and finalized at location A.
[2025-01-19 11:43] VITALS: BP 138/41; PULSE 70; RESP 16; TEMP 36.6; O2SAT 97
--- OUTSIDE RECORDS SUMMARY | 2025-01-19 11:44 | XMS_ITS ---
Author Organization [facility] Address [address] [place] [id number] Care Team Providers Care Jig And Fixture Maker Name Role Phone Radha Brock MD Primary Care Provider [phone] Yasmany Esquivel MD Unavailable [phone] Mauricio Fairchild MD, Julian Hernandez Unavailable [phone] Dialysis Access Sites Type Status Location Placement Date Removal Da te Peritoneal Dialysis Catheter Intermittent on hold Mid lower abdomen Active Abdomen - Lower, Medial (Navel) Procedures Procedure Name Priority Date/Time Associated Diagnosis Comments US CAROTIDS DUPLEX BILATERAL Schedule Routine, Read Routine (OP Routine) 10/27/2024 1:19 PM CDT Bilateral carotid artery stenosis EGFR Routine 03/01/2024 12:01 PM CDT Pre-op testing LIPID PANEL Routine 08/11/2023 12:17 PM CIRCULATION CLERK HEPATITIS PANEL, ACUTE STAT 01/07/2023 7:40 AM CDT from Last 3 Months or Most Recently Relevant to Health Maintenance Allergies Active Allergy Reactions Criticality Noted Date Comments Carbamazepine Unknown Ciprofloxacin Dizziness,Nausea only Low Clindamycin Diarrhea Low 11/13/2023 Metronidazole Itching Low 04/30/2018 Gabapentin Unknown 11/14/2022 Hydrocodone Itching Low 01/06/2023 unknown Labetalol Dizziness Low Labetalol Hcl Dizziness,Nausea only Low Penicillins Rash Medium Sulfamethoxazole-Trimeth oprim Other (See comments) Low 03/07/2020 Abdominal pain Terbinafine Other (See comments) Low 07/12/2020 Makes blood pressure and sugar messed up Triamterene Itching Low 07/12/2020 Triamterene-Hydrochlorot hiazid Itching Low 06/01/2020 Tramadol Rash Medium Hydrocodone-Acetaminophe n Itching Low 07/12/2020 Medications True Metrix Glucose Test Strip strip USE TO TEST DAILY 1 Active allopurinoL (ZYLOPRIM) 100 mg tablet Take 1 tablet (100 mg total) by mouth daily 30 tablet [address] (PROTONIX) 40 mg EC tabletIndication s:GI Bleed Take 1 tablet (40 mg total) by mouth daily 30 tablet 1 2 Active isosorbide mononitrate ER (IMDUR) 30 mg 24 hr tablet Take 1 tablet (30 mg total) by mouth 2 (two) times a day 2 Active nitroglycerin (NITROSTAT) 0.4 mg SL tabletIndication s:NSTEMI (non-ST elevated myocardial infarction) (HCC) Place 1 tablet (0.4 mg total) under the tongue every 5 (five) minutes as needed for chest pain May repeat dose every 5 minutes for up to 3 doses total. 25 tablet 3 2 Active glimepiride (AMARYL) 4 mg tabletIndication s:type 2 diabetes mellitus Take 1 tablet (4 mg total) by mouth 2 (two) times a day Active atorvastatin (LIPITOR) 40 mg tablet Take 1 tablet (40 mg total) by mouth nightly 30 tablet 3 3 Active vitamin D3-vitamin K2 25 mcg (1,000 unit)-90 mcg tablet,disintegr ating Take 3,000 Units by mouth every morning Active furosemide (LASIX) 80 mg tablet Take 1 tablet (80 mg total) by mouth 2 (two) times a day 3 Active clopidogreL (PLAVIX) 75 mg tablet Take 1 tablet (75 mg total) by mouth every morning 3 Active aspirin 81 mg enteric coated tablet Take 1 tablet (81 mg total) by mouth daily after lunch Active vitamin B complex-vitamin C-folic acid (NEPHRO-ANMOL) 0.8 mg tablet Take 1 tablet by mouth nightly With PD HD Active LANCETS MISC 2 Lancets by Not Applicable route daily 4 Active hydrALAZINE (APRESOLINE) 100 mg tabletIndication s:hypertension Take 1 tablet (100 mg total) by mouth 3 (three) times a day Active calcium carbonate (TUMS) 1,000 mg (400 mg elemental) tablet,chewable Take 400 mg by mouth 2 (two) times a day Active HYDROcodone-acet aminophen (NORCO) 5-325 mg per tabletIndication s:Pain Take 1 tablet by mouth every 4 (four) hours as needed for pain 30 tablet 4 Active [place]-Anmol Rx 1-60-300 mg-mg-mcg tablet Take 1 tablet by mouth daily 4 Active blood-glucose meter,continuous (Dexcom G7 Illusionist) misc USE DIRECTED FOR CHECKING SUGARS Active blood-glucose sensor (Dexcom G7 Sensor) device USE TO CHECK SUGARS AND CHANGE EVERY 10 DAYS Active carvediloL (COREG) 25 mg tabletIndication s:Hypertension associated with stage 3 chronic kidney disease due to type 2 diabetes mellitus (HCC) TAKE 1 TABLET(25 MG) BY MOUTH TWICE DAILY WITH MEALS 180 tablet 3 4 Active potassium chloride ER 10 mEq CR tablet Take 1 tablet/capsule (10 mEq total) by mouth daily 4 Active repaglinide (PRANDIN) 0.5 mg tablet Take 1 tablet (0.5 mg total) by mouth daily with breakfast for 7 days, THEN 1 tablet (0.5 mg total) 2 (two) times daily before meals for 7 days, THEN 1 tablet (0.5 mg total) 3 (three) times daily before meals thereafter. 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 11/13/2023 Traumatic closed displaced f racture of shaft of right tibia and fibula 01/06/2023 Closed fracture of right fibula and tibia 2022 History of gout 01/06/2023 PSVT (paroxysmal supraventricular tachycardia) 0 10/13/2022 Overview (10/13/2022): Added automatically from request for surgery [id number] Dependence on renal dialysis 06/20/2022 Pulmonary hypertension assoc iated with end stage renal disease on dialysis 06/20/2022 CKD (chronic kidney disease), stage V 05/16/2022 Chronic serous otitis media 05/14/2022 Acute on chronic heart failu re with preserved ejection fraction 04/16/2022 Acute respiratory failure with hypoxia Sepsis due to pneumonia 03/07/2022 CHF exacerbation 03/06/2022 Hypertensive urgency 01/09/2022 SVT (supraventricular tachycardia) 12/22/2021 NSTEMI (non-ST elevated myocardial infarction) 0 12/12/2021 Chest pain 10/15/2021 Overview (10/17/2021): Added automatically from request for surgery [id number] Gastrointestinal hemorrhage with hematemesis 06/2022 Overview (10/24/2021): Added automatically from request for surgery [id number] Hypoxemia requiring supplemental oxygen 08/28/19 22 Pre-transplant evaluation for kidney transplant 04/09/2021 Overview (05/23/2021): Images from the original note were not included. Leidy Voss 1945 Referring Fifth Hand: Yasmany Esquivel Listing Date: Dialysis Info: Type: Time: (Not currently on dialysis) days Blood Type: There is no height or weight on file to calculate BMI. ALERTS Dental Practitioner: Past Medical History: Diagnosis Date Arthropathy ankle CKD (chronic kidney disease), stage IV Coronary artery disease 2011 CABG Diabetes mellitus 2007 Never had insulin. Esophageal reflux Gastroparesis diarrhea. Has frequently. Last has a couple days ago. Takes imodium that ususally makes it stop. Hypertension 40's Myocardial infarction 2011 [facility] DEJUAN on CPAP 2017 uses every night Peptic ulcer disease gastritis. follows with Dr. Argueta Primary gout 2020 feet. Past Surgical History: Procedure Laterality Date ANKLE SURGERY Right 10/15/2010 [employer] CARDIAC STERNAL PRECAUTION 09/10/2011 x2 Cholecystectomy, Open 1988 Coronary Artery Bypass Graft 11/14/2011 4 bypass HAND SURGERY 1990 carpal Tunnel Hysterectomy 1985 total. Kirsten Singh [place] SHOULDER PROCEDURE/SURGERY 2019 Tonsillectomy 1951 Social History Socioeconomic History Marital status: Spouse name: Not on file Number of children: Not on file Years of education: Not on file Highest education level: Not on file Occupational History Not on file Tobacco Use Smoking status: Never Smoker Smokeless tobacco: Never Used Vaping Use Vaping Use: Never used Substance and Sexual Activity Alcohol use: Yes Comment: occasional Drug use: Never Sexual activity: Not on file Other Topics Concern Not on file Social History Narrative Not on file Social Determinants of Health Financial Resource Strain: Difficulty of Paying Living Expenses: Not on file Food Insecurity: Worried About Running Out of Food in the Last Year: Not on file Ran Out of Food in the Last Year: Not on file Transportation Needs: Lack of Transportation (Medical): Not on file Lack of Transportation (Non-Medical): Not on file Physical Activity: Days of Exercise per Week: Not on file Minutes of Exercise per Session: Not on file Stress: Feeling of Stress : Not on file Social Connections: Frequency of Communication with Friends and Family: Not on file Frequency of Social Gatherings with Friends and Family: Not on file Attends Anabaptist Services: Not on file Active Member of Clubs or Organizations: Not on file Attends Club or Organization Meetings: Not on file Marital Status: Not on file Intimate Partner Violence: Fear of Current or Ex-Partner: Not on file Emotionally Abused: Not on file Physically Abused: Not on file Sexually Abused: Not on file Housing Stability: Unable to Pay for Housing in the Last Year: Not on file Number of Places Lived in the Last Year: Not on file Unstable Housing in the Last Year: Not on file Transplant Surgery Clinic Appt w/: Date: A/P: Nephrology Clinic Appt w/: Date: A/P: Other Consults: Ortho: 04/04/2021 Assessment/Plan Leidy was seen today for post-op. Diagnoses and all orders for this visit: Peroneal tendon tear, right, subsequent encounter Plan Patient is now 6 weeks from her right peroneal tendon repair, doing well She has a rash on the bottom of her foot of uncertain etiology, has not responded to an antifungal cream. I recommended hydrocortisone otc, may be related to the boot and irritation to the skin or perspiration She may weightbear as tolerated with the boot, continue did remove several times a day for [id number] exercises Follow-up in 3 weeks, likely discontinue the boot at that time and assess the need for any physical therapy. KEVYN Lainez Cardiology:03/13/2021 HPI Leidy Voss is a 75 y.o. female with coronary disease. She underwent coronary bypass grafting in November of 2011 with a PEREIRA to the LAD, SVG to the diagonal an SVG to the ramus intermediate branch as well as S VG to the PDA. She does have renal insufficiency and followed by Dr. Esquivel. Since last visit she has came to the emergency room because of abdominal bloating and swelling. CT scan of the abdomen did not show any fluid. Abdominal ultrasound did show large amount of gas. Her blood pressure has been elevated but improved with higher dose of carvedilol. Her edema is somewhat better with the higher dose of furosemide. She did have some left facial numbness and blurry vision which was worked up at [place]. No stroke was noted. Follow-up note 04/30/2018: She denies any chest pain, shortness breath, syncope, presyncope, paroxysmal nocturnal dyspnea, orthopnea, palpitations. She does have a little bit of swelling. Her furosemide needed to be decreased because of some renal insufficiency. She continues to have issues with her abdomen. Belly sometimes feels bloated and has some pain. Sometimes occurring after eating. F/U note 09/15/2019: She denies any chest pain, shortness of breath, syncope, presyncope, paroxysmal nocturnal dyspnea, orthopnea, palpitations. She does have some swelling. She is taking some anti-inflammatories and is in pain because of her shoulder surgery. Office visit with LITHOGRAPHER APPRENTICE 06/05/2020: She is here under the advice for PCP for concern of CHF. Her story is a little difficult to piece together as she tells it, but she perceives that her problems began a few weeks ago with a g out flare in her feet, with pain and swelling in the toe joint. Her feet became swollen, and the gout flare subsided but the swelling did not. Now she is still having pain in the front of the feet and therefore she is in a wheelchair. She went to her PCP last week because she had r attling in her breathing and a cough with clear sputum. CXR orderd by PCP showed impression of cardiomegaly and bilateral pulmonary opacities. She was given an inhaler with some relief. Labs from PCP showed BNP 1458, WBC 13.2, pt anemic H/H 8.7/26.6, B/CR 85/2.67. She reports Dr. Esquivel told her kidney function declined from 45% to 18%, and she is going to start classes for dialysis prep as well as trying to get on a transplant list. She sees Dr. Esquivel again on 06/18. She has also been advised to follow-up with her sprigger. Prior to this recent illness she states she was able to lose 15 lb by eating healthier but she has now regained this weight. Currently she is drinking two 32 oz containers of water a day. Despite all this she states I feel fine. Office visit with LITHOGRAPHER APPRENTICE 07/12/2020: after her last office visit she had an echo showing diastolic dysfunction. She had appt with Dr. Esquivel who increased her furosemide (her perception is this is a temporary increase), and she is also now under the care of a sprigger Dr. Alfaro at [facility], and has had 2 units PRBC on 06/16/20, and iron infusion and vitamin K on 06/19 and 06/26. Most BP's have been 140's/70's but in the past 3-4 weeks they have been higher systolic 160's, and PCP started her hydralazine 25 mg t.i.d. she has not yet noticed this help. She has not had any more gout flare but had an effusion in the right knee that was drained, no associated trauma, fluid sent for cytology. Follow-up note 08/16/2020: Patient has seen Cindy on 2 occasions since last visit. She has been having elevated blood pressure but is stable today. Her swelling has improved. She has significant knee pain though in wants to have a knee scope next month. She is not active and cannot perform greater than 4 Mets because of her knee pain. She denies though any chest pain at this point while at rest. No significant shortness of breath, syncope, presyncope, paroxysmal nocturnal dyspnea orthopnea, edema palpitations Follow-up note 11/08/2020: She did undergo successful surgery of her knee but now she is having some issues with her ankle. She has been having worsening swelling and nephrology did increase her water pills briefly. She then was taking no water pills for about a week and has been back on them now for the past couple of weeks. Her swelling is still persistent but slightly better. No shortness of breath, chest pain, palpitations, paroxysmal nocturnal dyspnea orthopnea Follow-up note 03/13/2021: She did have her tendon repair in her right leg. She is doing okay from a cardiac perspective. States that her blood pressure if she checks it at other facilities in the 120 systolic. She denies any chest pain, shortness of breath, syncope, presyncope, paroxysmal nocturnal dyspnea orthopnea, edema palpitations ASSESSMENT Diagnoses and all orders for this visit: Coronary artery disease of la posta artery of [place] posta heart with stable angina pectoris (CMS/HCC) (Primary) Asymptomatic on current regimen including beta-julio cesar Hypertension associated with stage 3 chronic kidney disease due to type 2 diabetes mellitus (CMS/HCC) Above goal. Hyperlipidemia associated with type 2 diabetes mellitus (CMS/HCC) At goal Bilateral carotid artery stenosis Moderate disease and asymptomatic Peripheral circulatory disorder associated with type 2 diabetes mellitus (CMS/HCC) Mild disease and asymptomatic PLAN/RECOMMENDATIONS From a cardiac perspective she is stable. Home blood pressures are reportedly at goal but she is elevated here today. I recommend that she continue to check her blood pressure home and contact us if her blood pressure is consistently greater than 140/85 and ideally even if greater than 130/80 . Continue her current medications. Follow-up in 6 months or sooner as clinically indicated Stephanie Julien MD, [facility] Pertinent Previous Committee Presentations: Labs: PTH: A1c: Glucose: GFR: PSA: Serologies: CMV Igg: EBV Igg: Varicella: MMR: Toxo: Strongyloides: Albumin: Tox Screen: PRA: Class 1 Class 2 Kidney Biopsy: Echo: 06/06/2020 ++++++++++++++++++++++++++++++++++++ SUMMARY: ++++++++++++++++++++++++++++++++++++ The left ventricular size is mildly enlarged. The left ventricular systolic function is normal. Estimated left ventricular ejection fraction is 65-70%. Mild concentric left ventricular hypertrophy. Left ventricular diastolic function is abnormal (grade 3 - restrictive filling). The left atrial volume is mildly increased (34- 41ml/M2). The peak pulmonary artery systolic pressure is estimated to be approximately 53 mmHg. Moderate mitral regurgitation. Mild tricuspid regurgitation. ++++++++++++++++++++++++++++++++++++ FINDINGS: ++++++++++++++++++++++++++++++++++++ LV: The left ventricular size is mildly enlarged. The left ventricular systolic function is normal. Estimated left ventricular ejection fraction is 65-70%. Mild concentric left ventricular hypertrophy. The septal E/e' is elevated at >15. The lateral E/e' is elevated at >11. Left ventricular diastolic function is abnormal (grade 3 - restrictive filling). RV: The right ventricular size is normal. Right ventricular systolic function is normal. TAPSE = 19.8mm (<16 mm indicates systolic RV dysfunction). LA: The left atrial volume is mildly increased (34- 41ml/M2). RA: The right atrial size is normal. ALLYSON: No evidence of pericardial effusion. AO: Normal aortic root. PA: The peak pulmonary artery systolic pressure is estimated to be approximately 53 mmHg. Estimated right atrial pressure of 3 mmHg. SVn: Inferior vena cava is normal. Inferior vena cava shows >50% collapse with respiration consistent with normal right atrial pressure. AV: The aortic valve is trileaflet. No evidence of aortic valve stenosis. No evidence of aortic valve regurgitation. MV: Structurally normal mitral valve. Moderate mitral regurgitation. No evidence of mitral stenosis. PV: Structurally normal pulmonic valve. No evidence of pulmonic valve stenosis. Mild pulmonic regurgitation. TV: Structurally normal tricuspid valve. Mild tricuspid regurgitation. No evidence of tricuspid valve stenosis. NM Stress: 08/17/2020 Findings: Procedural Findings: One day rest/stress was used. Tc99m Sestamibi injected IV at rest was 8.4 millicuries. 25.0 millicuries of Tc99M Sestamibi injected IV during Lexiscan stress. Lexiscan 0.4mg administered IV over 10 seconds. Pharmacologic stress related symptoms and/or side effects during infusion include abdominal cramping. Symptoms were resolved with 100 mg of aminophylline IVP. Baseline heart rate was 60 BPM. Maximum Heart Rate Achieved was: 66 BPM. Baseline blood pressure was 150/50 mmHg. Post Stress Blood Pressure was 130/48 mmHg. Termination: Protocol complete. Resting ECG: Normal sinus rhythm. Cannot r/o anterior infarct - age uncertain. Post ECG: No diagnostic ST changes. Arrhythmia: No arrhythmias seen. Perfusion Findings: Abnormal perfusion imaging - see below. Technical quality of study is excellent. Prone imaging was not performed. Left ventricle cavity size at rest is normal. Left ventricle cavity size with stress is unchanged. A TID of 0.99 was automatically calculated. defect 1: Size is small. Severity is mild to moderate in intensity. Location of defect is in the mid anterior segment and apical anterior segment. Reversibility is partial. Type of defect is infarction with allyson-infarct or superimposed ischemia. LV Function: Global left ventricular function is normal. Left ventricular ejection fraction is 67 %. Conclusions: Global left ventricular function is normal. Left ventricular ejection fraction is 67 %. Myocardial perfusion imaging is abnormal for a small area of apical anterior infarction with a mild amount of mid anterior prei-infarct ischemia. This area is less prominent now than with previous stress test in 2019. Negative EKG portion of stress test. Electronically Signed By: Stephanie Julien MD 2020-08-17 17:33:04 CIRCULATION CLERK [facility]: 11/11/2011 C CXR: CT abd/pelvis non-contrast: Renal US: LE arterial doppler: LE venous doppler: Carotid US: Carotid US 11/15/2020 50-69 % bilateral carotid disease Myocardial perfusion study 08/17/2020 Global left ventricular function is normal. Left ventricular ejection fraction is 67 %. Myocardial perfusion imaging is abnormal for a small area of apical anterior infarction with a mild amount of mid anterior prei-infarct ischemia. This area is less prominent now than with previous stress test in 2019. Negative EKG portion of stress test. PPD: EGD: 06/14/2018 Colonoscopy: 03/18/ Mammo: 01/31/2021 Findings: Stable fibroglandular pattern bilaterally. Benign-appearing calcifications. No suspicious masses, malignant appearing calcifications, skin thickening or other abnormalities are present. No findings of concern with computer-assisted software IMPRESSION: No interval features to suggest malignancy. In the absence of clinical symptoms, return for annual screening due in one year. Recommendation: Routine Screening Bilateral. 01/09/2020 Pap: Panorex/Dental: SW: RD: Items Still Pending: Pre-op examination 08/16/2020 Chronic diastolic congestive heart failure 07/12 B12 deficiency 06/19/2020 Iron deficiency anemia secondary to blood loss ( chronic) 06/15/2020 Anemia of chronic renal failure 03/22/2020 End-stage renal disease on hemodialysis 03/22/20 20 Bilateral carotid artery stenosis 12/28/2019 History of total ankle replacement, right 2019 Pain associated with accessory navicular bone of foot, left 09/05/2019 Tibialis posterior tendonitis, right 09/05/2019 Small intestinal bacterial overgrowth 12/09/2017 Peripheral circulatory disor jennifer associated with type 2 diabetes mellitus 10/21/2017 Coronary artery disease of n ative artery of la posta heart with stable angina pectoris 07/08/2017 Hyperlipidemia LDL goal <70 07/08/2017 Hyperlipidemia associated with type 2 diabetes m ellitus 07/08/2017 Hypertension associated with stage 3 chronic kidney disease due to type 2 diabetes mellitus 07/08/2017 DEJUAN (obstructive sleep apnea) 07/08/2017 Bilateral edema of lower extremity 07/08/2017 Hyperkalemia 02/24/2016 Ischemic cardiomyopathy 04/25/2015 Overview (10/09/2016): Ischemic cardiomyopathy Chronic kidney disease 04/25/2015 Overview (10/09/2016): Chronic renal insufficiency, unspecified stage Essential hypertension 04/25/2015 Overview (10/09/2016): Essential hypertension Coronary arteriosclerosis in la posta artery 04/25 Overview (10/09/2016): Coronary artery disease involving la posta coronary artery of [place] post[place] heart without angina pectoris Type 2 diabetes mellitus 03/13/2014 Overview (10/15/2022): Type 2 diabetes mellitus with diabetic chronic kidney disease Type 2 diabetes mellitus with diabetic chronic kidney disease Diabetes mellitus Carotid artery disease 03/13/2014 Overview (10/09/2016): Carotid artery disease Diastolic dysfunction 03/13/2014 Overview (10/09/2016): Diastolic dysfunction Dyslipidemia 03/13/2014 Overview (10/09/2016): Dyslipidemia Hypertension 03/13/2014 Overview (10/09/2016): Hypertension Chronic renal impairment 03/13/2014 Overview (10/09/2016): Chronic kidney insufficiency Diabetes mellitus 03/13/2014 Overview (10/09/2016): Diabetes mellitus Disorder of carotid artery 03/13/2014 Overview (10/15/2022): Carotid artery disease Carotid artery disease Hypertension associated with stage 3 chronic kidney disease due to type 2 diabetes mellitus 03/01/2014 Cardiomyopathy 11/19/2013 Overview (10/11/2016): Non-ischemic cardiomyopathy Acute sinusitis 05/26/2013 Pain in joint 03/14/2013 Esophageal reflux 03/24/2012 Atherosclerosis of coronary artery 03/09/2012 Overview (10/15/2022): Coronary artery disease involving la posta coronary artery of la post[place] heart without angina pectoris Coronary artery disease involving la posta coronary artery of la posta heart without angina pectoris Social History Tobacco Use Types Packs/Day Years Used Date Smoking Tobacco: Never Smokeless Tobacco: Never Tobacco Cessation:Counseling Given: Not Answered Comments:exposed to heavy smoker - 25 years Alcohol Use Standard Drinks/Week Comments Yes 0 (1 standard drink = 0.6 oz pur e alcohol) [facility] Utilities Answer Date Recorded In the past 12 months has th e electric, gas, oil, or water company threatened to shut off services in your home? No 03/09/2024 Social Connection and Isolat ion Panel [NHANES] Answer Date Recorded In a typical week, how many times do you talk on the phone with family, friends, or neighbors? More than three times a week 03/09/2024 How often do you get togethe r with friends or relatives? More than three times a week 03/09/2024 How often do you attend chur ch or anabaptism services? More than 4 times per year 03/09/2024 Do you belong to any clubs o r organizations such as gnosticism groups, unions, fraternal or athletic groups, or school groups? No 03/09/2024 How often do you attend meet ings of the clubs or organizations you belong to? Never 03/09/2024 Are you , , di vorced, , never , or living with a partner? 03/09/2024 AUDIT-C Answer Date Recorded Q1: How often do you have a drink containing alcohol? Never 03/08/2024 Q2: How many drinks containi ng alcohol do you have on a typical day when you are drinking? Patient does not drink Q3: How often do you have si x or more drinks on one occasion? Never 03/08/2024 Overall Financial Resource Strain (CARDIA) Answe r Date Recorded How hard is it for you to pa y for the very basics like food, housing, medical care, and heating? Not hard at all 03/09/2024 [facility] [place] [facility] Occupat ional Health - Occupational Stress Questionnaire Answer Date Recorded Do you feel stress - tense, restless, nervous, or anxious, or unable to sleep at night because your mind is troubled all the time - these days? Not at all 10/22/2021 Exercise Vital Sign Answer Date Recorde d On average, how many days pe r week do you engage in moderate to strenuous exercise (like a brisk walk)? 4 days 10/22/2021 On average, how many minutes do you engage in exercise at this level? 10 min 10/22/2021 Hunger Vital Sign Answer Date Recorded Within the past 12 months, y ou worried that your food would run out before you got the money to buy more. Never true 03/09/20 24 Within the past 12 months, t he food you bought just didn't last and you didn't have money to get more. Never true 03/09/2024 PRAPARE - Transportation Answer Date Re corded In the past 12 months, has l ack of transportation kept you from medical appointments or from getting medications? No 10/2023 In the past 12 months, has l ack of transportation kept you from meetings, work, or from getting things needed for daily living? No 03/09/2024 Housing Stability Vital Sign Answer Seth e Recorded In the last 12 months, was t here a time when you were not able to pay the mortgage or rent on time? No 01/07/2023 In the last 12 months, how many places have you lived? 1 01/07/2023 In the last 12 months, was t here a time when you did not have a steady place to sleep or slept in a longterm (including now)? No 01/07/2023 Housing Stability Vital Sign Answer Seth e Recorded In the last 12 months, was t here a time when you were not able to pay the mortgage or rent on time? No 03/09/2024 In the past 12 months, how m any times have you moved where you were living? 1 03/09/2024 At any time in the past 12 m [facility], were you homeless or living in a longterm (including now)? No 03/09/2024 Personal Safety Answer Date Recorded Have you ever been in or are you currently in a harmful physical or emotional relationship or is someone making you feel afraid or unsafe? Denies 03/08/2024 Education Answer Date Recorded What is the highest level of school you have completed or the highest degree you have received? 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 Not on file Not on file Not on warren e Last Filed Vital Signs Vital Sign Reading Time Taken Comments Blood Pressure 100/40 10/27/2024 10:52 AM CDT Pulse 75 10/27/2024 10:52 AM CDT Temperature 36.4 C (97.6 F) 03/16/2024 7:56 AM CDT Respiratory Rate 20 03/16/2024 7:56 AM CDT Oxygen Saturation 98% 10/27/2024 10:52 AM CDT Inhaled Oxygen Concentration - - Weight 60.3 kg (133 lb) 10/27/2024 10:52 AM CDT Height 149.9 cm (4' 11) 10/27/2024 10:52 AM CDT Body Mass Index 26.86 10/27/2024 10:52 AM CDT Results * US Carotids Duplex Bilateral (10/27/2024 1:19 PM CDT) Anatomical Region Laterality Modality Vascular Bilateral Ultrasound 10/27/2024 12:5 1 PM CDT Narrative 10/27/2024 1:54 PM CDT [facility] [address] [place] [address] Carotid Duplex Ultrasound Report Patient Name: LEIDY VOSS L : 1945 (79y 3m) Study Date: 10/27/2024 12:51:16 PM Gender: F Clockmaker: Pily Read Jesse Location: [facility] Ref Provider: STEPHANIE JULIEN Quality: Adequate Order Provider: STEPHANIE JULIEN PROCEDURES: Carotid Report: Carotid duplex examination of the extracranial arteries was performed using 2D, color and spectral Doppler. INDICATIONS: Follow up carotid stenosis. HISTORY: HTN. HLD. DM. CAD- SD S/P CABG. DM. 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 CHF. COMPARISONS: No change compared to prior study. The previous exam was completed on 12/08/23 @ [facility]: bilateral 50-69. MEASUREMENTS: Right Value Left Value Rt Subc PSV 193 cm/sec LT Prox CCA PSV 130 cm/sec RT Prox CCA PSV 90 cm/sec LT Prox CCA EDV 20 cm/sec RT Prox CCA EDV 11 cm/sec LT Distal CCA PSV 86 cm/sec RT Distal CCA PSV 118 cm/sec LT Distal CCA EDV 15 cm/sec RT Distal CCA EDV 15 cm/sec LT Prox ICA PSV 168 cm/sec RT Prox ICA PSV 155 cm/sec LT Prox ICA EDV 33 cm/sec RT Prox ICA EDV 25 cm/sec LT Mid ICA PSV 154 cm/sec RT Mid ICA PSV 154 cm/sec LT Mid ICA EDV 32 cm/sec RT Mid ICA EDV 30 cm/sec LT Distal ICA PSV 126 cm/sec RT Distal ICA PSV 135 cm/sec LT Distal ICA EDV 26 cm/sec RT Distal ICA EDV 32 cm/sec LT ECA Prx PSV 208 cm/sec RT ECA Prx PSV 230 cm/sec LT ICA/CCA 1.95 ratio RT ICA/CCA 1.31 ratio Lt Vert Dst PSV 81 cm/sec Rt Vert Dst PSV 62 cm/sec FINDINGS: Rt Common Carotid Artery: The plaque in the right CCA appears to be heterogeneous. Rt Internal Carotid Artery: The plaque in the right internal carotid artery appears to be heterogeneous, calcified and irregular. Significant atherosclerotic changes of the right internal carotid artery with elevated peak systolic velocity and end diastolic velocity, as above. 50-69% stenosis. Rt External Carotid Artery: Patent right external carotid artery with evidence of atherosclerotic disease present. Rt Vertebral Artery: The right vertebral artery is patent with antegrade flow. Lt Common Carotid Artery: The plaque in the left CCA appears to be heterogeneous. Lt Internal Carotid Artery: The plaque in the left internal carotid artery appears to be heterogeneous, calcified and irregular. Significant atherosclerotic changes of the left internal carotid artery with elevated peak systolic velocity and end diastolic velocity, as above. 50-69% stenosis. Lt External Carotid Artery: Patent left external carotid artery with evidence of atherosclerotic disease present. Lt Vertebral Artery: The left vertebral artery is patent with antegrade flow. Comments: Brachial artery systolic blood pressure is 141 on the left, patient refused blood pressure on the right. Waveforms demonstrate triphasic waveforms bilaterally. Unable to visualize a 1.20 cm segment of the right proximal ICA due to calcific shadowing. Unable to visualize a 1.41 cm segment of the left proximal ICA due to calcific shadowing. CONCLUSIONS: 1. The right internal carotid artery disease is consistent with moderate 50-69% stenosis. 2. The left internal carotid artery disease is consistent with moderate 50-69% stenosis. ATTESTATION: I have reviewed and interpreted the pertinent images and measurements of this study. I attest to the conclusions in the final report that is provided above. Electronically Signed By: Naveen Martinez MD 10/27/2024 1:47:12 PM CDT Procedure Note Naveen Martinez MD - 10/27/2024 [facility] [address] [place] [address] Carotid Duplex Ultrasound Report Patient Name: LEIDY VOSS L : 1945 (79y 3m) Study Date: 10/27/2024 12:51:16 PM Gender: F Clockmaker: Pily Read Jesse Location: [facility] Ref Provider: STEPHANIE JULIEN Quality: Adequate Order Provider: STEPHANIE JULIEN PROCEDURES: Carotid Report: Carotid duplex examination of the extracranial arterieswas performed using 2D, color and spectral Doppler. INDICATIONS: Follow up carotid stenosis. HISTORY: HTN. HLD. DM. CAD- SD S/P CABG. DM. 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 CHF. COMPARISONS: No change compared to prior study. The previous exam was completed on12/08/23 @ [facility]: bilateral 50-69. MEASUREMENTS: Right Value Left Value Rt Subc PSV 193 cm/sec LT Prox CCA PSV 130 cm/sec RT Prox CCA PSV 90 cm/sec LT Prox CCA EDV 20 cm/sec RT Prox CCA EDV 11 cm/sec LT Distal CCA PSV 86 cm/sec RT Distal CCA PSV 118 cm/sec LT Distal CCA EDV 15 cm/sec RT Distal CCA EDV 15 cm/sec LT Prox ICA PSV 168 cm/sec RT Prox ICA PSV 155 cm/sec LT Prox ICA EDV 33 cm/sec RT Prox ICA EDV 25 cm/sec LT Mid ICA PSV 154 cm/sec RT Mid ICA PSV 154 cm/sec LT Mid ICA EDV 32 cm/sec RT Mid ICA EDV 30 cm/sec LT Distal ICA PSV 126 cm/sec RT Distal ICA PSV 135 cm/sec LT Distal ICA EDV 26 cm/sec RT Distal ICA EDV 32 cm/sec LT ECA Prx PSV 208 cm/sec RT ECA Prx PSV 230 cm/sec LT ICA/CCA 1.95 ratio RT ICA/CCA 1.31 ratio Lt Vert Dst PSV 81 cm/sec Rt Vert Dst PSV 62 cm/sec FINDINGS: Rt Common Carotid Artery: The plaque in the right CCA appears to beheterogeneous. Rt Internal Carotid Artery: The plaque in the right internal carotidartery appears to be heterogeneous, calcified and irregular. Significant atheroscleroticchanges of the right internal carotid artery with elevated peak systolic velocity and enddiastolic velocity, as above. 50-69% stenosis. Rt External Carotid Artery: Patent right external carotid artery withevidence of atherosclerotic disease present. Rt Vertebral Artery: The right vertebral artery is patent with antegradeflow. Lt Common Carotid Artery: The plaque in the left CCA appears to beheterogeneous. Lt Internal Carotid Artery: The plaque in the left internal carotid arteryappears to be heterogeneous, calcified and irregular. Significant atheroscleroticchanges of the left internal carotid artery with elevated peak systolic velocity and enddiastolic velocity, as above. 50-69% stenosis. Lt External Carotid Artery: Patent left external carotid artery withevidence of atherosclerotic disease present. Lt Vertebral Artery: The left vertebral artery is patent with antegradeflow. Comments: Brachial artery systolic blood pressure is 141 on the left,patient refused blood pressure on the right. Waveforms demonstrate triphasic waveformsbilaterally. Unable to visualize a 1.20 cm segment of the right proximal ICA due tocalcific shadowing. Unable to visualize a 1.41 cm segment of the left proximal ICAdue to calcific shadowing. CONCLUSIONS: 1. The right internal carotid artery disease is consistent with [id number]% stenosis. 2. The left internal carotid artery disease is consistent with [id number]% stenosis. ATTESTATION: I have reviewed and interpreted the pertinent images and measurements ofthis study. I attest to the conclusions in the final report that is provided above. Electronically Signed By: Naveen Martinez MD 10/27/2024 1:47:12 PM CDT us Stephanie Julien MD [facility] [place] Final R esult * (ABNORMAL) eGFR (03/01/2024 12:01 PM CDT) eGFR 6(L) >=60 mL/min/1. 73 m2 Comment: Interpretive Data Reference Interval Normal >/= 90 mL/min/1.73m2 Mildly decreased* 60 - 89 mL/min/1.73m2 Mildly to moderately decreased 45 - 59 mL/min/1.73m2 Moderately to severely decreased 30 - 44 mL/min/1.73m2 Severely decreased 15 - 29 mL/min/1.73m2 Kidney Failure < 15 mL/min/1.73m2 *Relative to young adult level Estimated glomerular filtration rate is determined by the 2020 CKD-EPI equation recommended by the National Kidney Foundation (A Unifying Approach to GFR Estimation: Recommendations of the NKF-ASK Task Force on Reassessing the Inclusion of Race in Diagnosing Kidney Disease, JASN 2020). The CKD-EPI equation should not be used for patients with unstable renal function and has not been validated in children and those over 70. Current interpretive data was last reviewed 2021. Blood 03/01/2024 12:0 1 PM CDT 03/01/2024 12:01 PM CDT Angelia Clayton NP LAB BLOOD ORDERABLES Final Res ult [facility] [id number] [place] [address] * Lipid panel (08/11/2023 12:17 PM CIRCULATION CLERK) SCRIBED Cholesterol, Total 139 <200 EXTERNAL LAB SCRIBED HDL 44 >40 EXTERNAL LAB SCRIBED LDL 33 <100 EXTERNAL LAB SCRIBED Triglycerides 309 <150 EXTERNAL LAB Blood Historical Provider LAB BLOOD ORDERABLES Edit ed Result - Final EXTERNAL LAB * Hepatitis panel, acute (01/07/2023 7:40 AM CDT) Hep A IgM Nonreactive Nonreactive KEIKO Comment: Interpretive Data: If Hep A IgM Ab is reported as Equivocal, a new sample should be drawn in two weeks for testing. Current interpretive data was last revised on 19. Hep B core IgM Nonreactive Nonreactive KEIKO Comment: Interpretive Data If HepB Core IgM Ab is reported as Equivocal, a new sample should be drawn in two weeks for testing. Current interpretive data was last revised on 19. Hep C Ab Nonreactive Nonreactive KEIKO Comment: Interpretive Data Nonreactive: Antibodies to HCV not detected. Does NOT exclude the possibility of recent exposure to HCV. Equivocal: Equivocal for HCV antibodies. Supplemental molecular testing will be automatically performed to determine infection status in accordance with current CDC screening recommendations. Reactive: Positive for HCV antibodies. This may represent current or past HCV infection. Supplemental molecular testing will be automatically performed to determine current infection status in accordance with current CDC screening recommendations. Interpretive data was last revised on 2019. HepBsAg Nonreactive Nonreactive [facility] Blood 01/07/2023 7:40 AM CDT 01/07/2023 7:49 AM CDT us Boris Solomon MD LAB MICROBIOLOGY - GENERAL ORD ERABLES Final Result [facility] [id number] Department [place] [address] from Last 3 Months or Most Recently Relevant to Health Maintenance
--- OUTSIDE RECORDS SUMMARY | 2025-01-19 11:44 | XMS_ITS | Clinical Summary ---
Author Organization [facility] [address] [place] [address] [address] [place] [address] Care Team Providers Care Change Control Specialist Name Role Phone Radha Brock MD Primary Care Provider [phone] Allergies Active Allergy Reactions Criticality Noted Date Comments Carbamazepine Itching Low 03/21/2020 Ciprofloxacin Headache Low 03/21/2020 Flagyl (As Hcl) Itching Low 03/21/2020 Hydrocodone-Acetaminophen Itching Low 03/21/2020 Labetalol Itching Low 03/21/2020 Penicillins Rash Low 03/21/2020 Terbinafine Bradycardia Medium 03/21/2020 Tramadol Rash Low 03/21/2020 Medications atorvastatin (LIPITOR) 40 mg tablet Take 40 mg by mouth 2 times daily. Active carvediloL (COREG) 25 mg tablet Take 25 mg by mouth 2 times daily with meals. Active amLODIPine (NORVASC) 10 mg tablet Take 10 mg by mouth daily. Active aspirin (BROOKS CHEWABLE) 81 mg Tablet, Chewable Take 81 mg by mouth daily. Active glipiZIDE (GLUCOTROL) 10 mg tablet Take 10 mg by mouth daily with breakfast. Active furosemide (LASIX) 20 mg tablet Take 20 mg by mouth daily. Active famotidine (PEPCID) 20 mg tablet Take 20 mg by mouth 2 times daily. 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 Gender Identity Not on file Sexual Orientation Not on file Last Filed Vital Signs Vital Sign Reading Time Taken Comments Blood Pressure - - Pulse - - Temperature - - Respiratory Rate - - Oxygen Saturation - - Inhaled Oxygen Concentration - - Weight 59.4 kg (131 lb) 03/21/2020 2:09 PM CDT Height 149.9 cm (4' 11) 03/21/2020 2:09 PM CDT Body Mass Index 26.46 03/21/2020 2:09 PM CDT Plan of Treatment Health Maintenance Due Date Last Done Comments DTAP/TDAP/TD VACCINES (1 - Tdap) 1964 PNEUMOCOCCAL VACCINE 50+ YEARS (1 of 1 - PCV) 07/18/18 96 ZOSTER VACCINE (1 of 2) 1995 OSTEOPOROSIS SCREENING 2010 RSV VACCINE (60+ or ) (1 - 1-dose 75+ series) 2020 INFLUENZA VACCINE (#1) 2025 Insurance MEDICARE PART A AND B [facility] SUPP Care Teams Change Control Specialist Relationship Specialty Start Date End Date Radha Brock MD [address] [place] [id number] PCP - General Family Practice 03/08/20
--- OUTSIDE RECORDS SUMMARY | 2025-01-19 11:44 | XMS_ITS | Clinical Summary ---
Author Organization [facility] Address [address] [place] [id number] Phone Care Team Providers Care Ship Boss Name Role Phone DelmyMatthias royelle Ruby Primary Care Provider [phone] Allergies Active Allergy Reactions Criticality Noted Date Comments Acetaminophen Unknown 03/17/2022 Carbamazepine Unknown 03/03/2019 Ciprofloxacin Dizziness Low 03/03/2019 Gabapentin Other (see comments) 05/16/2022 Kidney issues Hydrochlorothiazide-Tria mterene Itching 06/01/2020 Hydrocodone Unknown 03/17/2022 Hydrocodone-Acetaminophe n Itching,Nausea Only 03/07/2020 Labetalol Dizziness,Nausea Only Medium 03/03/2019 Metronidazole 03/03/2019 Penicillins Rash Medium 03/03/2019 Simvastatin Rash Medium 03/03/2019 Sulfa Antibiotics Rash Low 03/03/2019 Terbinafine Bradycardia,Other (see comments) Medium 03/21/2020 Makes blood pressure and sugar messed up Tramadol Hcl Nausea Only Medium 03/03/2019 Tuberculin Purified Protein Derivative Unknown 03/09/2012 Medications atorvastatin (LIPITOR) 40 MG tablet 3 Active Probiotic capsule 1 daily 0 6 Active diclofenac (VOLTAREN) 1 % topical gel 0 Active True Metrix Blood Glucose Test test strip USE TO TEST DAILY 1 Active allopurinol (ZYLOPRIM) 100 MG tablet Take 100 mg by mouth 1 (one) time each day 2 Active clopidogrel (PLAVIX) 75 MG tablet Take 75 mg by mouth 1 (one) time each day 2 Active pantoprazole (PROTONIX) 40 MG EC tablet Take 40 mg by mouth 1 (one) time each day 2 Active hydrALAZINE (APRESOLINE) 50 MG tablet Take 50 mg by mouth 3 (three) times a day 2 Active magnesium oxide (MAG-OX) 400 MG tablet Take 400 mg by mouth 2 Active nitroglycerin (NITROSTAT) 0.4 MG SL tablet DISSOLVE ONE TABLET UNDER THE TONGUE EVERY 5 MINUTES NEEDED FOR CHEST PAIN. DO NOT EXCEED A TOTAL OF 3 DOSES IN 15 MINUTES NOW 2 Active NIFEdipine CC (ADALAT CC) 90 MG 24 hr tablet TAKE 1 TABLET BY MOUTH ONCE DAILY FOR 30 DAYS 2 Active carvedilol (COREG) 12.5 MG tablet Take 12.5 mg by mouth in the morning and 12.5 mg before bedtime. 2 Active isosorbide mononitrate (IMDUR) 30 MG 24 hr tablet Take 60 mg by mouth 1 (one) time each day 2 Active furosemide (LASIX) 20 MG tablet Take 20 mg by mouth 1 (one) time each day 2 Active albuterol HFA (PROVENTIL HFA) 108 (90 Base) MCG/ACT inhaler INHALE 2 PUFFS BY MOUTH EVERY 4 HOURS NEEDED FOR WHEEZING FOR SHORTNESS OF BREATH 2 Active aspirin 81 MG chewable tablet Chew 81 mg 1 (one) time each day Active bumetanide (BUMEX) 1 MG tablet Take 2 mg by mouth in the morning and 2 mg in the evening. Take with meals. 2 Active Active Problems Problem Noted Date Diagnosed Date Patient encounter status 04/09/2021 Overview (07/04/2021): Images from the original note were not included. Leidy Voss 1945 Referring Hat Designer: Yasmany Esquivel Listing Date: Dialysis Info: Type: Time: (Not currently on dialysis) days Blood Type: There is no height or weight on file to calculate BMI. ALERTS Switchboard Inspector: Past Medical History: Diagnosis Date Arthropathy ankle CKD (chronic kidney disease), stage IV Coronary artery disease 2011 CABG Diabetes mellitus 2008 Never had insulin. Esophageal reflux Gastroparesis diarrhea. Has frequently. Last has a couple days ago. Takes imodium that ususally makes it stop. Hypertension 40's Myocardial infarction 2012 [facility] DEJUAN on CPAP 2017 uses every night Peptic ulcer disease gastritis. follows with Dr. Argueta Primary gout 2020 feet. Past Surgical History: Procedure Laterality Date ANKLE SURGERY Right 10/15/2010 [place] CARDIAC STERNAL PRECAUTION 09/10/2011 x2 Cholecystectomy, Open 1988 Coronary Artery Bypass Graft 11/14/2011 4 bypass HAND SURGERY 1990 carpal [facility]unnel [facility] Tonsillectomy 195 Social History Socioeconomic History Marital status: Spouse [...] Friends and Family: Not on file Attends Yazidi Services: Not on file Active Member of [...] file Transplant Surgery Clinic Appt w/: Date: P: Nephrology Clinic Appt w/: Date: A/P: Other [...] did remove several times a day for [id number] exercises Follow-up in 3 weeks, likely discontinue [...] blurry vision which was worked up at [facility]. No stroke was noted. Follow-up note 04/30/2018: [...] of her shoulder surgery. Office visit with MANAGEMENT ANALYST 06/05/2020: She is here under the advice [...] also been advised to follow-up with her banbury mill operator. Prior to this recent illness she states she was able to lose 15 lb by eating healthier but she has now regained this weight. Currently she is drinking two 32 oz containers of water a day. Despite all this she states I feel fine. Office visit with MANAGEMENT ANALYST 07/12/2020: after her last office visit she had an echo showing diastolic dysfunction. She had appt with Dr. Esquivel who increased her furosemide (her perception is this is a temporary increase), and she is also now under the care of a [employer] mill operator Dr. 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 Electronically Signed By: Marcio Julien MD 2020-08-17 17:33:[address] [facility]: 11/11/2011 C CXR: CT abd/pelvis non-contrast: Renal [...] Pap: Panorex/Dental: SW: RD: Items Still Pending: Images from the original note were not included. Leidy Voss 1945 Referring Hat Designer: Yasmany Esquivel Listing Date: Dialysis Info: Type: Time: (Not currently on dialysis) days Blood Type: There is no height or weight on file to calculate BMI. ALERTS Switchboard Inspector: Past Medical History: Diagnosis Date Arthropathy ankle CKD (chronic kidney disease), stage IV Coronary artery disease 2011 CABG Diabetes mellitus 2007 Never had insulin. Esophageal reflux Gastroparesis diarrhea. Has frequently. Last has a couple days ago. Takes imodium that ususally makes it stop. Hypertension 40's Myocardial infarction 2011 [facility] DEJUAN on CPAP 2017 uses every night Peptic ulcer disease gastritis. follows with Dr. Argueta Primary gout 2020 feet. Past Surgical History: Procedure Laterality Date ANKLE SURGERY Right 10/15/2010 [place] CARDIAC STERNAL PRECAUTION 09/10/2011 x2 Cholecystectomy, Open 1988 Coronary Artery Bypass Graft 11/14/2011 4 bypass HAND SURGERY 1990 carpal Tunnel Hysterectomy 1985 total. [facility] [place] SHOULDER PROCEDURE/SURGERY 2019 Tonsillectomy 1951 Social History [...] Friends and Family: Not on file Attends Yaz[employer] Services: Not on file Active Member of [...] did remove several times a day for [id number] exercises Follow-up in 3 weeks, likely discontinue [...] blurry vision which was worked up at [facility]. No stroke was noted. Follow-up note 04/30/2018: [...] of her shoulder surgery. Office visit with MANAGEMENT ANALYST 06/05/2020: She is here under the advice [...] also been advised to follow-up with her banbury mill operator. Prior to this recent illness she states she was able to lose 15 lb by eating healthier but she has now regained this weight. Currently she is drinking two 32 oz containers of water a day. Despite all this she states I feel fine. Office visit with MANAGEMENT ANALYST 07/12/2020: after her last office visit she had an echo showing diastolic dysfunction. She had appt with Dr. Esquivel who increased her furosemide (her perception is this is a temporary increase), and she is also now under the care of a [employer] mill operator Dr. 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 Electronically Signed By: Marcio Julien MD 2020-08-17 17:33:[address] [facility]: 11/11/2011 C CXR: CT abd/pelvis non-contrast: Renal [...] Pap: Panorex/Dental: SW: RD: Items Still Pending: Anemia of chronic renal failure 03/22/2020 Hyperlipidemia 05/05/2018 Peripheral circulatory disor jennifer associated with type 2 diabetes mellitus 10/21/2017 Coronary arteriosclerosis in iliamna artery 07/08 Overview (03/03/2019): Coronary artery disease involving iliamna coronary artery of iliamna heart without angina pectoris Obstructive sleep apnea syndrome 07/08/2017 Edema of lower extremity 07/08/2017 Hyperkalemia 02/24/2016 Disorder of carotid artery 03/13/2014 Overview (03/03/2019): Carotid artery disease Type 2 diabetes mellitus wit h diabetic chronic kidney disease 03/01/2014 Hypertensive chronic kidney disease with stage 1 through stage 4 chronic kidney disease, or unspecified chronic kidney disease 03/01/2014 Hypertension in chronic kidn ey disease stage 3 due to type 2 diabetes mellitus 03/01/2014 Cardiomyopathy 11/19/2013 Overview (03/03/2019): Non-ischemic cardiomyopathy Chronic kidney disease, Stage IV (severe) 2012 Pain in joint 03/14/2013 Immunizations Immunization Administration Dates Next Due Influenza (IM) Preservative Free 06/06/2015 Influenza Split High Dose Pr eservative Free IM 04/20/2019,05/12/2018,04/09/2017 Influenza TIV (IM) 04/30/2022,07/19/2021, 019 Influenza, Injectable, Quadr ivalent, Preservative Free 04/21/2022 Influenza, Unspecified 04/30/2022,2021,04/27/2019,05/12,04/09/2017,06/06/2015,08/29/2014 ,03/25/2013 Pneumococcal Conjugate 03/06/2017 Pneumococcal Conjugate 13-Valent 06/06/2015 Pneumococcal Polysaccharide 05/16/2013 Family History Medical History Relation Comments Malignant neoplastic disease Father Coronary arteriosclerosis Mother Kidney disease Neg Hx Kidney stone Neg Hx Relation Status Comments Father Mother Social History Tobacco Use Types Packs/Day Years Used Date Smoking Tobacco: Never Smokeless Tobacco: Never Alcohol Use Standard Drinks/Week Comments Yes 0 (1 standard drink = 0.6 oz pur e alcohol) rare Comments Unknown Sex and Gender Information Value Date Recorded Sex Assigned at Not on file Legal Sex Female 10:05 AM [facility] Gender Identity Not on file Sexual Orientation Not on file Last Filed Vital Signs Vital Sign Reading Time Taken Comments Blood Pressure 124/70 06/05/2022 10:27 AM PILOT MANAGER Pulse 72 06/05/2022 10:27 AM PILOT MANAGER Temperature 36.4 C (97.6 F) 06/05/2022 10:27 AM PILOT MANAGER Respiratory Rate - - Oxygen Saturation - - Inhaled Oxygen Concentration - - Weight 55.3 kg (122 lb) 06/05/2022 10:27 AM PILOT MANAGER Height 149.9 cm (4' 11) 06/05/2022 10:27 AM PILOT MANAGER Body Mass Index 24.64 06/05/2022 10:27 AM PILOT MANAGER Plan of Treatment Health Maintenance Due Date Last Done Comments Influenza Vaccine (#1) 2025 , 04/30/2022, 04/21/2022, Additional history exists Pneumococcal PPSV23/PCV13 65 + Years / Low and Medium Risk Completed 06/06/2015, 05/16/2013 Insurance MEDICARE [facility] Advance Directives For more information, please contact: [phone] (7AM - 4PM [facility], 7 days a week) Documents on File Type Date Recorded Patient Support Assistant Expl anation Power of Oil Analyst 06/07/2015 2:48 PM Care Teams Ship Boss Relationship Specialty Start Date End Date Radha Brock PCP - General Family Medicine 06/19/20
--- OUTSIDE RECORDS SUMMARY | 2025-01-19 11:44 | XMS_ITS | Clinical Summary ---
Author Organization [facility] Address [address] [place] [id number] Care Team Providers Care Detective Automobile Section Name Role Phone Radha Brock MD Primary Care Provider [phone] Yasmany Esquivel MD Unavailable [phone] Mauricio Fairchild MD, Julian Hernandez Unavailable [phone] Allergies Active Allergy Reactions Criticality Noted Date [...] daily 4 Active blood-glucose meter,continuous (Dexcom G7 Plasterer Stucco) misc USE DIRECTED FOR CHECKING SUGARS Active [...] (10/13/2022): Added automatically from request for surgery [id number] Dependence on renal dialysis 06/20/2022 Pulmonary hypertension assoc iated with end stage renal disease on dialysis 06/20/2022 CKD (chronic kidney disease), stage V 05/16/2022 Chronic serous otitis media 05/14/2022 Acute on chronic heart failu re with preserved ejection fraction 04/16/2022 Acute respiratory failure with hypoxia 2 Sepsis due to pneumonia 03/07/2022 CHF exacerbation 03/06/2022 Hypertensive urgency 01/09/2022 SVT (supraventricular tachycardia) 12/22/2021 NSTEMI (non-ST elevated myocardial infarction) 0 12/12/2021 Chest pain 10/15/2021 Overview (10/17/2021): Added automatically from request for surgery [id number] Gastrointestinal hemorrhage with hematemesis 06/2022 Overview (10/24/2021): Added automatically from request for surgery [id number] Hypoxemia requiring supplemental oxygen 08/28/19 22 Pre-transplant evaluation for kidney transplant 04/09/2021 Overview (05/23/2021): Images from the original note were not included. Leidy Voss 1945 Referring Construction Project Assistant: Yasmany Esquivel Listing Date: Dialysis Info: Type: Time: (Not currently on dialysis) days Blood Type: There is no height or weight on file to calculate BMI. ALERTS Facing Baster Jumpbasting: Past Medical History: Diagnosis Date Arthropathy ankle [...] Procedure Laterality Date ANKLE SURGERY Right 10/15/2010 [facility] CARDIAC STERNAL PRECAUTION 09/10/2011 x2 Cholecystectomy, Open 1988 Coronary Artery Bypass Graft 11/14/2011 4 bypass HAND SURGERY 1990 carpal Tunnel Hysterectomy 1985 total. Kirsten Hatch [facility] SHOULDER PROCEDURE/SURGERY 2019 Tonsillectomy 195 Social History [...] Friends and Family: Not on file Attends Gnosticism Services: Not on file Active Member of [...] did remove several times a day for qnsdx-bx-vupjrr exercises Follow-up in 3 weeks, likely discontinue [...] blurry vision which was worked up at [facility]. No stroke was noted. Follow-up note 04/30/2018: [...] of her shoulder surgery. Office visit with ACID RECOVERY OPERATOR 06/05/2020: She is here under the advice [...] also been advised to follow-up with her swedish masseuse. Prior to this recent illness she states she was able to lose 15 lb by eating healthier but she has now regained this weight. Currently she is drinking two 32 oz containers of water a day. Despite all this she states I feel fine. Office visit with ACID RECOVERY OPERATOR 07/12/2020: after her last office visit she had an echo showing diastolic dysfunction. She had appt with Dr. Esquivel who increased her furosemide (her perception is this is a temporary increase), and she is also now under the care of a swedish masseuse Dr. 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 (CMS/HCC) (Primary) [...] sooner as clinically indicated Stephanie Julien MD, FACC Pertinent Previous Committee Presentations: [...] Signed By: Stephanie Julien MD 2020-08-17 17:33:04 CORK INSULATOR HELPER [facility]: 11/11/2011 C CXR: CT abd/pelvis non-contrast: [...] artery disease of n ative artery of saxman heart with stable angina pectoris 07/08/2017 Hyperlipidemia [...] Overview (10/09/2016): Essential hypertension Coronary arteriosclerosis in saxman artery 04/25 Overview (10/09/2016): Coronary artery disease involving saxman coronary artery of saxman heart without angina pectoris Type 2 diabetes [...] 03/09/2012 Overview (10/15/2022): Coronary artery disease involving saxman coronary artery of saxman heart without angina pectoris Coronary artery disease involving saxman coronary artery of saxman heart without angina pectoris Encounters Date Type Department Care Team Description 10/27/2024 1:00 PM CDT Ancillary Procedure [facility] Vascular and Vein Surgery at [address] [place] [address] Bilateral carotid artery stenosis 10/27/2024 10:45 AM CDT Office Visit [facility] Cardiology [address] [place] [phone] Stephanie Julien MD 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 (Primary Dx); Bilateral carotid artery stenosis; Pulmonary hypertension associated with end stage renal disease on dialysis (HCC); Peripheral circulatory disorder associated with type 2 diabetes mellitus (HCC) 10/27/2024 Results Follow-Up [facility] Cardiology [address] [place] [phone] Stephanie Julien MD US Carotids Duplex Bilateral 10/27/2024 Orders Only [facility] Cardiology [address] [place] [phone] Provider, MD Burke from Last 3 Months Surgical History Surgery Date Site/Laterality Comments CHOLECYSTECTOMY 07/06/1988 - 07/05/1989 Cholecystectomy TONSILLECTOMY 07/06/1951 - 07/05/1952 Tonsillectomy LASIK 07/06/2007 - 07/05/2008 Bilateral LASIK HYSTERECTOMY 07/06/1984 - 07/05/1985 Hysterectomy CORONARY ARTERY BYPASS GRAFT 07/06/2011 - 07/05/2012 CABG FRACTURE SURGERY 07/06/1990 - 07/05/1991 PERITONEAL CATHETER INSERTIO N TUNNELED ROTATOR CUFF REPAIR Right ANKLE SURGERY US GUIDED THORACENTESIS 04/17/2022 N/A ANKLE FRACTURE SURGERY 11/13/2023 Right ORIF HARDWARE REMOVAL FOOT / ANKLE 03/08/2024 Right Medical History Medical History Date Comments Hyperlipidemia Hyperlipidemia Gastroesophageal reflux disease GERD Hypertension 1907 Hypertension Osteoarthritis Osteoarthritis Diabetes mellitus (HCC) 1907 Diabetes Chronic coronary artery disease Coronary artery disease Hx Other Medical 1990 Carpal tunnel j oint fusion rt hand Hx Other Medical 1975 Hole in rt leg Hx Other Medical 1988 Right Shoulder Sx Hx Other Medical 2001 Rt ankle sx Hx Other Medical 2010 Rt ankle replac ement Myocardial infarction ([facility]) Myoc ardial infarction Hx Other Medical 2012 Stent placed Hx Other Medical 2012 bypasses X 4 Chronic kidney disease 2012 Sleep apnea Type 2 diabetes mellitus ([facility]) Dialysis patient CHF (congestive heart failure) ([facility]) ESRD (end stage renal disease) ([facility]) 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 01/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 Family History Medical History Relation Name Comments Bone cancer Father Orville Carr Cancer, bone; Cancer Father Orville Carr Diabetes Maternal Grandfather ever Van Heart attack Maternal Grandfather ever Van Diabetes Mother Sarah Carr Heart attack Mother Sarah Carr Heart disease Mother Sarah Carr Hypertension Mother Sarah Carr Heart failure Other 1 Family history of Congestive heart failure; Diabetes Other 2 Family history of Diabetes mellitus; Hypertension Other 3 Family history of Hypertension; Osteoarthritis Other 4 Family histor y of Osteoarthritis; Relation Name Status Comments Father Orville Carr Maternal Grandfather ever Araujo Mother Sarah Carr Other 1 Other 2 Other 3 Other 4 Social History Tobacco Use Types Packs/Day Years Used Date Smoking Tobacco: Never Smokeless Tobacco: Never Tobacco Cessation:Counseling Given: Not Answered Comments:exposed to heavy smoker - 25 years Alcohol Use Standard Drinks/Week Comments Yes 0 (1 standard drink = 0.6 oz pur e alcohol) [facility] Utilities Answer Date Recorded In the past 12 months has e electric, gas, oil, or water company [...] 03/09/2024 How often do you attend chur or mandaen services? More than 4 times per year 03/09/2024 Do you belong to any clubs o r organizations such as scientologist groups, unions, fraternal or athletic groups, or [...] and heating? Not hard at all 03/09/2024 [facility] - Occupational Stress [...] place to sleep or slept in a senior care (including now)? No 01/07/2023 Housing Stability Vital Sign Answer Seth e Recorded In the last 12 months, was t here a time when you were not able to pay the mortgage or rent on time? No 03/09/2024 In the past 12 months, how m any times have you moved where you were living? 1 03/09/2024 At any time in the past [address] [facility], were you homeless or living in a senior care (including now)? 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 on file Not on file Not on warren e Obstetrics History Last Filed Vital Signs Vital Sign Reading [...] Mass Index 26.86 10/27/2024 10:52 AM CDT Plan of Treatment Health Maintenance Due Date Last Done Comments Albumin Creatinine Ratio, Urine 1945 Depression Screening 1945 Osteoporosis Screening-Bone Density Scan 1945 Dilated Eye Exam 1945 Foot Exam 1945 DTaP/Tdap/Td Vaccine (1 - Tdap) 1956 Zoster Vaccine (1 of 2) 1995 Well Visit 65+ 2010 Hemoglobin A1C 06/08/2024 12/08/2023, 08/29/2021 Lipid Panel 12/07/2024 12/08/2023, 02/0 12/2023, 08/11/2023, Additional history exists eGFR 03/01/2025 03/01/2024, 05/3 07/2023, 11/14/2023, Additional history exists Influenza Vaccine (#1) 2025 , 04/21/2022, 07/19/2021, Additional history exists Fall Risk Assessment 03/16/2025 03/16/2024 Pneumococcal vaccine 65+ Completed 017, 06/06/2015, 05/16/2013 Hepatitis B Screening Completed 01/07/2023 Hepatitis C Screening Completed 01/07/2023 Breast Cancer Screening-Mammogram Discontinued 06/13/2024, 06/13/2024, 06/09/2023, Additional history exists Medical Devices Implanted Type Area Account Engineer Device Identifier Shelf Expiration Date Model / Serial / Lot [employer] Vascade Mvp 6-12fr Venous Closure [id number] - [id number] Implanted:Qty: 1 on 11/14/2022 by Jarrett Mayo MD at [facility] Collagen Right: Femoral Vein [employer] 06/19/2024 800-612C- 10U / / [id number] [employer] Vascade Mvp 6-12fr Venous Closure [id number] - [id number] Implanted:Qty: 1 on 11/14/2022 by Jarrett Maoy MD at [facility] Collagen Left: Femoral Vein [employer] 06/19/2024 800-612C- 10U / / [id number] [employer] Device Closure Vascade Od5 Fr Femoral Artery [id number] - [id number] Implanted:Qty: 1 on 11/14/2022 by Jarrett Mayo MD at [facility] Collagen Right: Femoral Vein [employer] 07/28/2024 700-500DX -05U / / [id number] [employer] Device Vascular Closure Femoral Artery Bioabsorbable Dual Method Vascade 6-7fr Collagen [id number] - [id number] Implanted:Qty: 1 on 11/14/2022 by Jarrett Mayo MD at [facility] Collagen Left: Femoral Vein [employer] 08/04/2024 700-580I- 05U / / [id number] Medtronic [employer] X [id number] Resolute Garth 3mm 2.1-2.7fr 34mm 140cm Rapid Exchange Radiopaque - [id number] Implanted:Qty: 1 on 10/18/2021 by Sha Wu MD at [facility] Medtronic Inc 05/30/2022 [id number] / / Synthes Lcp 12mm 68q5i4om .7mm 5 Hole Collar 1/3 Tubular Plate Bone 241.351 - [id number] Implanted:Qty: 1 on 01/08/2023 by Julian Martínez Jr., MD at [facility] Right: Fibula Synthes I 241.351 / / Synthes 3.5mm 6mm 16mm 2.5mm Self Tap Small Hexagonal Socket Low Profile 204.816 - [id number] Implanted:Qty: 4 on 01/08/2023 by Julian Martínez Jr., MD at [facility] Right: Fibula Synthes I 204.816 / / Explanted Type Area Account Engineer Device Identifier Shelf Expiration Date Model / Serial / Lot Synthes Lcp Combi 187mm 10 Hole Low Profile Round Edge Tibial Right 02.112.522 - [id number] Implanted:Qty: 1 on 01/08/2023 by Julian Martínez Jr., MD at [facility] Explanted:Qty: 1 on 11/13/2023 by Julian Martínez Jr., MD at [facility] Right: Tibia Synthes I 02.112.522 / / Synthes 3.5mm 6mm 42mm 2.5mm Self Tap Small Hexagonal Socket Low Profile 204.842 - [id number] Implanted:Qty: 1 on 01/08/2023 by Julian Martínez Jr., MD at [facility] Explanted:Qty: 1 on 11/13/2023 by Julian Martínez Jr., MD at [facility] Right: Tibia Synthes I 204.842 / / Synthes 3.5mm 2.9mm 10mm Self Tap Lock Stardrive Conical Head T15 Full 212.101 - [id number] Implanted:Qty: 1 on 01/08/2023 by Julian Martínez Jr., MD at [facility] Explanted:Qty: 1 on 11/13/2023 by Julian Martínez Jr., MD at [facility] Right: Tibia Synthes I 212.101 / / Synthes 3.5mm 2.9mm 45mm Self Tap Lock Stardrive Conical Head T15 Full 212.119 - [id number] Implanted:Qty: 1 on 01/08/2023 by Julian Martínez Jr., MD at [facility] Explanted:Qty: 1 on 11/13/2023 by Julian Martínez Jr., MD at [facility] Right: Tibia Synthes I 212.119 / / Synthes 3.5mm 6mm 20mm 2.5mm Self Tap Small Hexagonal Socket Low Profile 204.820 - [id number] Implanted:Qty: 1 on 01/08/2023 by Julian Martínez Jr., MD at [facility] Explanted:Qty: 1 on 11/13/2023 by Julian Martínez Jr., MD at [facility] Right: Tibia Synthes I 204.820 / / Synthes 3.5mm 2.9mm 40mm Self Tap Lock Stardrive Conical Head T15 Full 212.117 - [id number] Implanted:Qty: 1 on 01/08/2023 by Julian Martínez Jr., MD at [facility] Explanted:Qty: 1 on 11/13/2023 by Julian Martínez Jr., MD at [facility] Right: Tibia Synthes I 212.117 / / Synthes 3.5mm 2.9mm 24mm Self Tap Lock Stardrive Conical Head Pelvis T15 212.108 - [id number] Implanted:Qty: 1 on 01/08/2023 by Julian Martínez Jr., MD at [facility] Explanted:Qty: 1 on 11/13/2023 by Julian Martínez Jr., MD at [facility] Right: Tibia Synthes I 212.108 / / Synthes 3.5mm 2.9mm 20mm Self Tap Lock Stardrive Conical Head T15 Full 212.106 - [id number] Implanted:Qty: 2 on 01/08/2023 by Julian Martínez Jr., MD at [facility] Explanted:Qty: 2 on 11/13/2023 by Julian Martínez Jr., MD at [facility] Right: Tibia Synthes I 212.106 / / Synthes 3.5mm 6mm 40mm 2.5mm Self Tap Small Hexagonal Socket Low Profile 204.840 - [id number] Implanted:Qty: 1 on 11/13/2023 by Julian Martínez Jr., MD at [facility] Explanted:Qty: 1 on 03/08/2024 by Julian Martínez Jr., MD at [facility] Right: Tibia Synthes I 204.840 / / Synthes 3.5mm 6mm 30mm 2.5mm Self Tap Small Hexagonal Socket Low Profile 204.830 - [id number] Implanted:Qty: 1 on 11/13/2023 by Julian Martínez Jr., MD at [facility] Explanted:Qty: 1 on 03/08/2024 by Julian Martínez Jr., MD at [facility] Right: Tibia Synthes I 204.830 / / Synthes 3.5mm 6mm 36mm 2.5mm Self Tap Small Hexagonal Socket Low Profile 204.836 - [id number] Implanted:Qty: 1 on 11/13/2023 by Julian Martínez Jr., MD at [facility] Explanted:Qty: 1 on 03/08/2024 by Julian Martínez Jr., MD at [facility] Right: Tibia Synthes I 204.836 / / Synthes 3.5mm 2.9mm 40mm Self Tap Lock Stardrive Conical Head T15 Full 212.117 - [id number] Implanted:Qty: 2 on 11/13/2023 by Julian Martínez Jr., MD at [facility] Explanted:Qty: 2 on 03/08/2024 by Julian Martínez Jr., MD at [facility] Right: Tibia Synthes I 212.117 / / Synthes Plate Bone Compression Locking Low Profile 10 Hole Right Lcp 3.7c387ep Ss 02.112.522s - [id number] Implanted:Qty: 1 on 11/13/2023 by Julian Martínez Jr., MD at [facility] Explanted:Qty: 1 on 03/08/2024 by Julian Martínez Jr., MD at [facility] Right: Tibia Synthes 02.112.522S / / Synthes 3.5mm 2.9mm 24mm Self Tap Lock Stardrive Conical Head Pelvis T15 212.108 - [id number] Implanted:Qty: 3 on 11/13/2023 by Julian Martínez Jr., MD at [facility] Explanted:Qty: 3 on 03/08/2024 by Julian Martínez Jr., MD at [facility] Right: Tibia Synthes I 212.108 / / Synthes 3.5mm 6mm 24mm 2.5mm Self Tap Small Hexagonal Socket Low Profile 204.824 - [id number] Implanted:Qty: 1 on 11/13/2023 by Julian Martínez Jr., MD at [facility] Explanted:Qty: 1 on 03/08/2024 by Julian Martínez Jr., MD at [facility] Right: Tibia Synthes I 204.824 / / Procedures Procedure Name Priority Date/Time Associated Diagnosis Comments US CAROTIDS DUPLEX BILATERAL Schedule Routine, Read Routine (OP Routine) 10/27/2024 1:19 PM CDT Bilateral carotid artery stenosis EGFR Routine 03/01/2024 12:01 PM CDT Pre-op testing LIPID PANEL Routine 08/11/2023 12:17 PM CORK INSULATOR HELPER HEPATITIS PANEL, ACUTE STAT 01/07/2023 7:40 AM CDT from Last 3 Months or Most Recently Relevant to Health Maintenance Results * US Carotids Duplex Bilateral (10/27/2024 1:19 PM CDT) Anatomical Region Laterality Modality Vascular Bilateral Ultrasound 10/27/2024 12:5 1 PM CDT Narrative 10/27/2024 1:54 PM CDT Vascular & Vein Surgery [address] [place] [address] Carotid Duplex Ultrasound Report Patient Name: LEIDY VOSS L : 1945 (79y 3m) Study Date: 10/27/2024 12:51:16 PM Gender: F Model Set Artist: Pily Read RVJesse Location: [facility] Ref Provider: STEPHANIE JULIEN Quality: Adequate Order Provider: STEPHANIE JULIEN PROCEDURES: Carotid Report: Carotid duplex examination of the extracranial arteries was performed using 2D, color and spectral Doppler. INDICATIONS: Follow up carotid stenosis. HISTORY: HTN. HLD. DM. CAD- MT S/P CABG. DM. 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 [...] MD - 10/27/2024 Vascular & Vein Surgery [facility] [place] [address] Carotid Duplex Ultrasound Report Patient Name: LEIDY VOSS L : 1945 (79y 3m) Study Date: 10/27/2024 12:51:16 PM Gender: F Model Set Artist: Pily Read RVT Location: [facility] Ref Provider: STEPHANIE JULIEN Quality: Adequate Order Provider: STEPHANIE JULIEN PROCEDURES: Carotid Report: Carotid duplex examination of the extracranial arterieswas performed using 2D, color and spectral Doppler. INDICATIONS: Follow up carotid stenosis. HISTORY: HTN. HLD. DM. CAD- MT S/P CABG. DM. 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 [...] internal carotid artery disease is consistent with wokqynjg84-38% stenosis. 2. The left internal carotid artery disease is consistent with vcxwxvir41-75% stenosis. ATTESTATION: I have reviewed and interpreted the pertinent images and measurements ofthis study. I attest to the conclusions in the final report that is provided above. Electronically Signed By: Naveen Martinez MD 10/27/2024 1:47:12 PM CDT us Stephanie Julien MD IM US PROCEDURES Final R esult * (ABNORMAL) [...] CDT 03/01/2024 12:01 PM CDT Angelia Clayton ACID RECOVERY OPERATOR LAB BLOOD ORDERABLES Final Res ult [facility] [id number] Department [place] [address] * Lipid panel (08/11/2023 12:17 PM CORK INSULATOR HELPER) SCRIBED Cholesterol, Total 139 <200 EXTERNAL LAB SCRIBED HDL 44 >40 EXTERNAL LAB SCRIBED LDL 33 <100 EXTERNAL LAB SCRIBED Triglycerides 309 <150 EXTERNAL LAB Blood Historical Provider LAB BLOOD ORDERABLES Edit ed Result - Final EXTERNAL LAB * Hepatitis panel, acute (01/07/2023 7:40 AM CDT) Hep A IgM Nonreactive Nonreactive KEIKO BELLA Comment: Interpretive Data: If Hep A IgM [...] revised on 2019. HepBsAg Nonreactive Nonreactive KE[facility] Blood 01/07/2023 7:40 AM CDT 01/07/2023 7:49 AM CDT Boris Solomon MD LAB MICROBIOLOGY - GENERAL ORD ERABLES Final Result [facility] [id number] Department [place] [address] from Last 3 Months or Most Recently Relevant to Health Maintenance Insurance MEDICARE [facility] MEDICARE [facility] MEDICARE SUPPLEMENT Advance Directives For more information, please contact: [phone] Documents on File Type Date Recorded Patient Skirt Panel Assembler Expl anation ADVANCE DIRECTIVE 11/04/2021 9:22 AM POWER OF TAKE OUT WAITER-MEDICAL * Full Code (Latest Code Status on File) Date Activated Date Inactivated Comments 03/08/2024 1:48 PM 03/16/2024 6:20 PM * Full Code Date Activated Date Inactivated Comments 11/13/2023 2:58 PM 11/14/2023 5:11 PM * Full Code Date Activated Date Inactivated Comments 01/08/2023 11:44 AM 01/12/2023 9:41 PM * Full Code Date Activated Date Inactivated Comments 01/06/2023 4:29 PM 01/08/2023 11:44 AM * Full Code Date Activated Date Inactivated Comments 10/25/2021 9:39 AM 11/03/2021 5:05 PM Care Teams Detective Automobile Section Relationship Specialty Start Date End Date Radha Brock MD [address] [place] [address] PCP - General 10/03/16 Yasmany Esquivel MD [address] [place] [address] Referring Physician Nephrology 11/03/21 Julina [place] [address] [address] Surgeon Orthopedic Surgery 01/12/23
--- OUTSIDE RECORDS SUMMARY | 2025-01-19 11:44 | XMS_ITS | Clinical Summary ---
Author Organization [facility] Address [address], [facility] [address] [place] [address] Phone Care Team Providers Care Manager Paid Name Role Phone Radha Brock MD Primary Care Provider [phone] Radha Brock MD Unavailable [phone] Lore Alfaro MD Unavailable Allergies Active Allergy Reactions Criticality Noted Date Comments Sulfamethoxazole-Trimeth oprim Other (see Comments) 03/07/2020 Abdominal pain Carbamazepine Other (see Comments),Itching,U nknown Low 03/07/2020 fatigue fatigue Ciprofloxacin Nausea,Unknown Low 03/09/2012 Nausea and dizziness Other reaction(s): Dizziness, Headache Nausea and dizziness Hydrocodone-Acetaminophe n Nausea,Itching,Unkn own Low 05/26/2013 Labetalol Nausea,Itching,Unkn own Medium 03/09/2012 dizziness Other reaction(s): Dizziness dizziness Metronidazole Itching Low 03/21/2020 Penicillins Unknown,Rash Medium 03/03/2019 Simvastatin Rash Medium 12/14/2015 Sulfa Antibiotics Rash,Unknown Low 03/03/2019 Terbinafine Unknown 03/07/2020 Tramadol Unknown,Nausea,Rash Medium 03/09/2012 Other reaction(s): Dizziness Tuberculin Purified Protein Derivative Unknown 03/09/2012 Medications aspirin EC 81 MG Tablet Delayed Response Take 81 mg by mouth daily. Active atorvastatin (LIPITOR) 40 MG Tablet Take 40 mg by mouth daily. Active allopurinol (ZYLOPRIM) 100 MG Tablet Take 100 mg by mouth daily. Active pantoprazole (PROTONIX) 40 MG Tablet Delayed Response Take 40 mg by mouth daily. Active clopidogrel (PLAVIX) 75 MG Tablet Take 75 mg by mouth daily. Active isosorbide mononitrate (IMDUR) 30 MG TABLET SR 24 HR 2 Active nitroGLYCERIN (NITROSTAT) 0.4 MG SL Tablet DISSOLVE ONE TABLET UNDER THE TONGUE EVERY 5 MINUTES NEEDED FOR CHEST PAIN. DO NOT EXCEED A TOTAL OF 3 DOSES IN 15 MINUTES NOW 2 Active hydrALAZINE 50 MG Tablet Take 50 mg by mouth 3 times daily. 2 Active amLODIPine (NORVASC) 10 MG Tablet Take 10 mg by mouth daily. 2 Active Magnesium 200 MG Tablet Take 400 mg by mouth in the morning and at bedtime. Active gabapentin (NEURONTIN) 100 MG Capsule Take 1 Capsule by mouth in the morning and at bedtime. 2 Active fluticasone (FLONASE) 50 MCG/ACT Suspension USE 2 SPRAY(S) IN EACH NOSTRIL ONCE DAILY 2 Active furosemide (LASIX) 20 MG Tablet Take 20 mg by mouth daily. 2 Active carvedilol (COREG) 12.5 MG Tablet Take 12.5 mg by mouth 2 times daily. 2 Active albuterol 108 (90 Base) MCG/ACT Aerosol Solution INHALE 2 PUFFS BY MOUTH EVERY 4 HOURS NEEDED FOR WHEEZING FOR SHORTNESS OF BREATH 2 Active NIFEdipine CR (PROCARDIA-XL) 90 MG TABLET SR 24 HR TAKE 1 TABLET BY MOUTH ONCE DAILY FOR 30 DAYS 2 Active Active Problems Problem Noted Date Diagnosed Date CKD (chronic kidney disease), stage V 05/16/2022 Anemia in stage 4 chronic kidney disease 020 CKD (chronic kidney disease), stage IV 0 B12 deficiency 06/19/2020 Iron deficiency anemia, unspecified 06/18/2020 Iron deficiency anemia secondary to blood loss ( chronic) 06/15/2020 Resolved Problems Problem Noted Date Diagnosed Date Resolved Date Chronic kidney disease, stage III (moderate) 0 06/19/2020 Social History Tobacco Use Types Packs/Day Years Used Date Smoking Tobacco: Never Smokeless Tobacco: Never Alcohol Use Standard Drinks/Week Comments Yes 0 (1 standard drink = 0.6 oz pur e alcohol) PHQ-2 Answer Date Recorded Total Score - Questions 1-9 0 01/04 Comments No Sex and Gender Information Value Date Recorded Sex Assigned at Not on file Legal Sex Female 3:01 PM CDT Gender Identity Not on file Sexual Orientation Not on file Last Filed Vital Signs Vital Sign Reading Time Taken Comments Blood Pressure 122/44 05/16/2022 12:07 PM TELEVISION REPAIRER Pulse 54 05/16/2022 12:07 PM TELEVISION REPAIRER Temperature 36.2 C (97.1 F) 05/16/2022 12:07 PM TELEVISION REPAIRER Respiratory Rate 16 05/16/2022 12:0 7 PM TELEVISION REPAIRER Oxygen Saturation 94% 05/16/2022 12: 07 PM TELEVISION REPAIRER Inhaled Oxygen Concentration - - Weight 63.8 kg (140 lb 11.2 oz) 022 12:07 PM TELEVISION REPAIRER Height 149.9 cm (4' 11) 05/16/2022 12: 07 PM TELEVISION REPAIRER Body Mass Index 28.42 05/16/2022 12:07 PM TELEVISION REPAIRER Plan of Treatment Health Maintenance Due Date Last Done Comments Hepatitis C Virus (HCV) Screening 1945 TdaP Immunization 1945 Zoster Immunization (1 of 2) 1995 Respiratory Syncytial Virus (RSV) Immunization (Adult) (1 - 1-dose 75+ series) 2020 SARS-COV-2 Immunization (2023- season) 2024 Influenza Immunization (#1) 03/06/202504/06, 04/21/2022, 07/19/2021, Additional history exists Pneumococcal Immunization (50+ years) Completed 03/06/2017, 06/06/2015, 05/16/2013 Pneumococcal Immunization Combined Discontinued 03/06/2017, 06/06/2015, 05/16/2013 Colorectal Cancer Screening Discontinued Immunochemical Fecal Occult Blood Discontinued 10/24/2021, 06/04/2020 Cologuard Discontinued Colonoscopy Discontinued Hepatitis B Immunization Aged Out No longer eligible based on patient's age to complete this topic Human Papillomavirus (HPV) Immunization Aged Out No longer eligible based on patient's age to complete this topic Meningococcal Immunization (ACWY) Aged Out No longer eligible based on patient's age to complete this topic Rotavirus Immunization Aged Out No lo nger eligible based on patient's age to complete this topic Insurance MEDICARE [facility] Care Teams Manager Paid Relationship Specialty Start Date End Date Radha Brock MD [address] [place] [address] PCP - General Family Medicine 03/08/20 Radha Brock MD [address] [place] [address] Referring Provider Family Medicine 03/08/20 Lore Alfaro MD [address] [place] [address] [place] [address] Consulting Physician Oncology 06/19/20
--- OUTSIDE RECORDS SUMMARY | 2025-01-19 11:44 | XMS_ITS | Referral Summary ---
Author Organization [facility] Address [address] [place] [id number] Care Team Providers Care Service Line Coordinator Name Role Phone Radha Brock MD Primary Care Provider [phone] Yasmany Esquivel MD Unavailable [phone] Mauricio Fairchild MD, Julian Brewerwin Unavailable [phone] Encounters Date Type Department Care Team Description 10/27/2024 Results Follow-Up [facility] Cardiology [address] [place] [address] [address] [place] [address] Stephanie Julien MD US Carotids Duplex Bilateral 10/27/2024 Orders Only [facility] Cardiology [address] [place] [address] [address] [place] [address] ProviderBurke MD 10/27/2024 1:00 PM CDT Ancillary Procedure [facility] Vascular and Vein Surgery at [address] [place] [id number] Bilateral carotid artery stenosis 10/27/2024 10:45 AM CDT Office Visit [facility] Cardiology [address] [place] [address] [address] [place] [address] Stephanie Julien MD Coronary artery disease of [place] artery of [place] heart with stable angina pectoris (Primary Dx); Bilateral carotid artery stenosis; Pulmonary hypertension associated with end stage renal disease on dialysis (HCC); Peripheral circulatory disorder associated with type 2 diabetes mellitus ([facility]) from Last 3 Months Allergies Active Allergy Reactions Criticality Noted Date [...] SL tabletIndication s:NSTEMI (non-ST elevated myocardial infarction) ([facility]) Place 1 tablet (0.4 mg total) under [...] daily 4 Active blood-glucose meter,continuous (Dexcom G7 Sleeve [place]) [facility] USE DIRECTED FOR CHECKING SUGARS Active blood-glucose [...] (10/13/2022): Added automatically from request for surgery [id number] Dependence on renal dialysis 06/20/2022 Pulmonary hypertension [...] (10/17/2021): Added automatically from request for surgery [id number] Gastrointestinal hemorrhage with hematemesis 06/2022 Overview (10/24/2021): Added automatically from request for surgery [id number] Hypoxemia requiring supplemental oxygen 08/28/19 22 Pre-transplant evaluation for kidney transplant 04/09/2021 Overview (05/23/2021): Images from the original note were not included. Leidy Voss 1945 Referring Service Vehicle Operator: Yasmany Esquivel Listing Date: Dialysis Info: Type: Time: (Not currently on dialysis) days Blood Type: There is no height or weight on file to calculate BMI. 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 Kirsten Hatch [facility] SHOULDER PROCEDURE/SURGERY 2019 Tonsillectomy 195 Social [...] Friends and Family: Not on file Attends Muslim Services: Not on file Active Member of [...] did remove several times a day for smyde-di-nklygt exercises Follow-up in 3 weeks, likely discontinue [...] blurry vision which was worked up at [place]. No stroke was noted. Follow-up note 04/30/2018: [...] of her shoulder surgery. Office visit with [facility] 06/05/2020: She is here under the advice [...] also been advised to follow-up with her dude wrangler. Prior to this recent illness she states she was able to lose 15 lb by eating healthier but she has now regained this weight. Currently she is drinking two 32 oz containers of water a day. Despite all this she states I feel fine. Office visit with [facility] 07/12/2020: after her last office visit she had an echo showing diastolic dysfunction. She had appt with Dr. Esquivel who increased her furosemide (her perception is this is a temporary increase), and she is also now under the care of a dude wrangler Dr. Alfaro at [facility], and has had 2 units [...] for this visit: Coronary artery disease of [place] artery of [place] heart with stable angina pectoris (CMS/HCC) (Primary) [...] sooner as clinically indicated Stephanie Julien MD, [facility] Pertinent Previous Committee Presentations: Labs: PTH: [...] Signed By: Stephanie Julien MD 2020-08-17 17:33:04 PARTS CLERK [facility]: 11/11/2011 C CXR: CT abd/pelvis non-contrast: Renal [...] artery disease of n ative artery of [place] heart with stable angina pectoris 07/08/2017 Hyperlipidemia [...] Overview (10/09/2016): Essential hypertension Coronary arteriosclerosis in [place] artery 04/25 Overview (10/09/2016): Coronary artery disease involving [place] coronary artery of [place] heart without angina pectoris Type 2 diabetes [...] 03/09/2012 Overview (10/15/2022): Coronary artery disease involving [place] coronary artery of [place] heart without angina pectoris Coronary artery disease involving [place] coronary artery of [place] heart without angina pectoris Social History Tobacco Use Types Packs/Day Years Used Date Smoking Tobacco: Never Smokeless Tobacco: Never Tobacco Cessation:Counseling Given: Not Answered Comments:exposed to heavy smoker - 25 years Alcohol Use Standard Drinks/Week Comments Yes 0 (1 standard drink = 0.6 oz pur e alcohol) [facility] Utilities Answer Date Recorded In the [...] often do you attend chur ch or hindu services? More than 4 times per year 03/09/2024 Do you belong to any clubs o r organizations such as mormon groups, unions, fraternal or athletic groups, or [...] and heating? Not hard at all 03/09/2024 [facility] [place] [facility] Occupat ional [facility] - Occupational Stress [...] place to sleep or slept in a fpc (including now)? No 01/07/2023 Housing Stability Vital Sign Answer Seth e Recorded In the last 12 months, was t here a time when you were not able to pay the mortgage or rent on time? No 03/09/2024 In the past 12 months, how m any times have you moved where you were living? 1 03/09/2024 At any time in the past 12 m [facility], were you homeless or living in a fpc (including now)? 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 Work Not on file Not on file Not [...] 10/27/2024 10:52 AM CDT Plan of Treatment Not on file Medical Devices Implanted Type Area Audiovisual Aids Technician Device Identifier Shelf Expiration Date Model / Serial / Lot [employer] Vascade Mvp 6-12fr Venous Closure [id number] - [id number] Implanted:Qty: 1 on 11/14/2022 by Jarrett Mayo MD at [facility] Collagen Right: Femoral Vein [employer] 06/19/2024 800-612C- 10U / / [id number] [employer] Vascade Mvp 6-12fr Venous Closure [id number] - [id number] Implanted:Qty: 1 on 11/14/2022 by Jarrett Mayo MD at [facility] Collagen Left: Femoral Vein [employer] 06/19/2024 800-612C- 10U / / [id number] [employer] Device Closure Vascade Od5 Fr Femoral Artery [id number] - [id number] Implanted:Qty: 1 on 11/14/2022 by Jarrett Mayo MD at [facility] Collagen Right: Femoral Vein [employer] 07/28/2024 700-500DX -05U / / [id number] [employer] Device Vascular Closure Femoral Artery Bioabsorbable Dual Method Vascade 6-7fr Collagen [id number] - [id number] Implanted:Qty: 1 on 11/14/2022 by Jarrett Mayo MD at [facility] Collagen Left: Femoral Vein [employer] 08/04/2024 700-580I- 05U / / [id number] Medtronic [employer] X [id number] Resolute Garth 3mm 2.1-2.7fr 34mm 140cm Rapid Exchange Radiopaque - [id number] Implanted:Qty: 1 on 10/18/2021 by Sha Wu MD at [facility] Medtronic Inc 05/30/2022 [id number] / / Synthes Lcp 12mm [id number] .7mm 5 Hole Collar / Tubular Plate Bone 241.351 - [id number] Implanted:Qty: 1 on 01/08/2023 by Julian Martínez Jr., MD at [facility] Right: Fibula Synthes I 241.351 / / Synthes 3.5mm 6mm 16mm 2.5mm Self Tap Small Hexagonal Socket Low Profile 204.816 - [id number] Implanted:Qty: 4 on 01/08/2023 by Julian Martínez Jr., MD at [facility] Right: Fibula Synthes I 204.816 / / Explanted Type Area Audiovisual Aids Technician Device Identifier Shelf Expiration Date Model / Serial / Lot Synthes Lcp Combi 187mm 10 Hole Low Profile Round Edge Tibial Right 02.112.522 - [id number] Implanted:Qty: 1 on 01/08/2023 by Julian Martínez Jr., MD at [facility] Explanted:Qty: 1 on 11/13/2023 by Julian Martínez Jr., MD at [facility] Right: Tibia Synthes I 02.112.522 / / Synthes 3.5mm 6mm 42mm 2.5mm Self Tap Small Hexagonal Socket Low Profile 204.842 - [id number] Implanted:Qty: 1 on 01/08/2023 by Julian Martínez Jr., MD at [facility] Explanted:Qty: 1 on 11/13/2023 by Julian Martínez Jr., MD at [facility] Right: Tibia Synthes I 204.842 / / Synthes 3.5mm 2.9mm 10mm Self Tap Lock Stardrive Conical Head T15 Full 212.101 - [id number] Implanted:Qty: 1 on 01/08/2023 by Julian Martínez Jr., MD at [facility] Explanted:Qty: 1 on 11/13/2023 by Julian Martínez Jr., MD at [facility] Right: Tibia Synthes I 212.101 / / Synthes 3.5mm 2.9mm 45mm Self Tap Lock Stardrive Conical Head T15 Full 212.119 - [id number] Implanted:Qty: 1 on 01/08/2023 by Julian Martínez Jr., MD at [facility] Explanted:Qty: 1 on 11/13/2023 by Julian Martínez Jr., MD at [facility] Right: Tibia Synthes I 212.119 / / Synthes 3.5mm 6mm 20mm 2.5mm Self Tap Small Hexagonal Socket Low Profile 204.820 - [id number] Implanted:Qty: 1 on 01/08/2023 by Julian Martínez Jr., MD at [facility] Explanted:Qty: 1 on 11/13/2023 by Julian Martínez Jr., MD at [facility] Right: Tibia Synthes I 204.820 / / Synthes 3.5mm 2.9mm 40mm Self Tap Lock Stardrive Conical Head T15 Full 212.117 - [id number] Implanted:Qty: 1 on 01/08/2023 by Julian Martínez Jr., MD at [facility] Explanted:Qty: 1 on 11/13/2023 by Julian Martínez Jr., MD at [facility] Right: Tibia Synthes I 212.117 / / Synthes 3.5mm 2.9mm 24mm Self Tap Lock Stardrive Conical Head Pelvis T15 212.108 - [id number] Implanted:Qty: 1 on 01/08/2023 by Julian Martínez Jr., MD at [facility] Explanted:Qty: 1 on 11/13/2023 by Julian Martínez Jr., MD at [facility] Right: Tibia Synthes I 212.108 / / Synthes 3.5mm 2.9mm 20mm Self Tap Lock Stardrive Conical Head T15 Full 212.106 - [id number] Implanted:Qty: 2 on 01/08/2023 by Julian Martínez Jr., MD at [facility] Explanted:Qty: 2 on 11/13/2023 by Julian Martínez Jr., MD at [facility] Right: Tibia Synthes I 212.106 / / Synthes 3.5mm 6mm 40mm 2.5mm Self Tap Small Hexagonal Socket Low Profile 204.840 - [id number] Implanted:Qty: 1 on 11/13/2023 by Julian Martínez Jr., MD at [facility] Explanted:Qty: 1 on 03/08/2024 by Julian Martínez Jr., MD at [facility] Right: Tibia Synthes I 204.840 / / Synthes 3.5mm 6mm 30mm 2.5mm Self Tap Small Hexagonal Socket Low Profile 204.830 - [id number] Implanted:Qty: 1 on 11/13/2023 by Julian Martínez Jr., MD at [facility] Explanted:Qty: 1 on 03/08/2024 by Julian Martínez Jr., MD at [facility] Right: Tibia Synthes I 204.830 / / Synthes 3.5mm 6mm 36mm 2.5mm Self Tap Small Hexagonal Socket Low Profile 204.836 - [id number] Implanted:Qty: 1 on 11/13/2023 by Julian Martínez Jr., MD at [facility] Explanted:Qty: 1 on 03/08/2024 by Julian Martínez Jr., MD at [facility] Right: Tibia Synthes I 204.836 / / Synthes 3.5mm 2.9mm 40mm Self Tap Lock Stardrive Conical Head T15 Full 212.117 - [id number] Implanted:Qty: 2 on 11/13/2023 by Julian Martínez Jr., MD at [facility] Explanted:Qty: 2 on 03/08/2024 by Julian Martínez Jr., MD at [facility] Right: Tibia Synthes I 212.117 / / Synthes Plate Bone Compression Locking Low Profile 10 Hole Right Lcp 3.3n895ub Ss 02.112.522s - [id number] Implanted:Qty: 1 on 11/13/2023 by Julian Martínez Jr., MD at [facility] Explanted:Qty: 1 on 03/08/2024 by Julian Martínez Jr., MD at [facility] Right: Tibia Synthes 02.112.522S / / Synthes 3.5mm 2.9mm 24mm Self Tap Lock Stardrive Conical Head Pelvis T15 212.108 - [id number] Implanted:Qty: 3 on 11/13/2023 by Julian Martínez Jr., MD at [facility] Explanted:Qty: 3 on 03/08/2024 by Julian Martínez Jr., MD at [facility] Right: Tibia Synthes I 212.108 / / Synthes 3.5mm 6mm 24mm 2.5mm Self Tap Small Hexagonal Socket Low Profile 204.824 - [id number] Implanted:Qty: 1 on 11/13/2023 by Julian Martínez Jr., MD at [facility] Explanted:Qty: 1 on 03/08/2024 by Julian Martínez Jr., MD at [facility] Right: Tibia Synthes I 204.824 / / Procedures Procedure Name Priority Date/Time Associated Diagnosis Comments US CAROTIDS DUPLEX BILATERAL Schedule Routine, Read Routine (OP Routine) 10/27/2024 1:19 PM CDT Bilateral carotid artery stenosis EGFR Routine 03/01/2024 12:01 PM CDT Pre-op testing LIPID PANEL Routine 08/11/2023 12:17 PM PARTS CLERK HEPATITIS PANEL, ACUTE STAT 01/07/2023 7:40 AM CDT from Last 3 Months or Most Recently Relevant to Health Maintenance Results * US Carotids Duplex Bilateral (10/27/2024 1:19 PM CDT) Anatomical Region Laterality Modality Vascular Bilateral Ultrasound 10/27/2024 12:5 1 PM CDT Narrative 10/27/2024 1:54 PM CDT Vascular & Vein Surgery [address] [facility] [place] [address] Carotid Duplex Ultrasound Report Patient Name: LEIDY VOSS L : 1945 (79y 3m) Study Date: 10/27/2024 12:51:16 PM Gender: F Drying Machine Operator Package Yarns: Pily Read RVJesse Location: [facility] Ref Provider: STEPHANIE JULIEN Quality: Adequate Order Provider: STEPHANIE JULIEN PROCEDURES: Carotid Report: Carotid duplex examination of the extracranial arteries was performed using 2D, color and spectral Doppler. INDICATIONS: Follow up carotid stenosis. HISTORY: HTN. HLD. DM. CAD- IN S/P CABG. DM. 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 [...] MD - 10/27/2024 Vascular & Vein Surgery [address] [place] [address]. [place] [address] Carotid Duplex Ultrasound Report Patient Name: LEIDY VOSS L : 1945 (79y 3m) Study Date: 10/27/2024 12:51:16 PM Gender: F Drying Machine Operator Package Yarns: Pily Read RVJesse Location: [facility] Ref Provider: STEPHANIE JULIEN Quality: Adequate Order Provider: STEPHANIE JULIEN PROCEDURES: Carotid Report: Carotid duplex examination of the extracranial arterieswas performed using 2D, color and spectral Doppler. INDICATIONS: Follow up carotid stenosis. HISTORY: HTN. HLD. DM. CAD- IN S/P CABG. DM. 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 [...] internal carotid artery disease is consistent with dksxkgye51-95% stenosis. 2. The left internal carotid artery disease is consistent with -87% stenosis. ATTESTATION: I have reviewed and interpreted the pertinent images and measurements ofthis study. I attest to the conclusions in the final report that is provided above. Electronically Signed By: Naveen Martinez MD 10/27/2024 1:47:12 PM CDT us Stephanie Julien MD IMG US PROCEDURES Final R esult * (ABNORMAL) [...] of Race in Diagnosing Kidney Disease, JASN 202). The CKD-EPI equation should not be used for patients with unstable renal function and has not been validated in children and those over 70. Current interpretive data was last reviewed 2021. Blood 03/01/2024 12:0 1 PM CDT 03/01/2024 12:01 PM CDT us Angelia Clayton [facility] LAB BLOOD ORDERABLES Final Res ult [facility] [address] Department [place] [address] * Lipid panel (08/11/2023 12:17 PM PARTS CLERK) SCRIBED Cholesterol, Total 139 <200 EXTERNAL LAB SCRIBED HDL 44 >40 EXTERNAL LAB SCRIBED LDL 33 <100 EXTERNAL LAB SCRIBED Triglycerides 309 <150 EXTERNAL LAB Blood Burke Randhawa MD LAB BLOOD ORDERABLES Edit ed Result - Final Performing Organization Address [facility]/ZIP Co de Phone Number EXTERNAL LAB * Hepatitis panel, acute (01/07/2023 7:40 AM CDT) Hep A IgM Nonreactive Nonreactive [facility] Comment: Interpretive Data: If Hep A IgM Ab is reported as Equivocal, a new sample should be drawn in two weeks for testing. Current interpretive data was last revised on 19. Hep B core IgM Nonreactive Nonreactive [facility] Comment: Interpretive Data If HepB Core IgM Ab is reported as Equivocal, a new sample should be drawn in two weeks for testing. Current interpretive data was last revised on 19. Hep C Ab Nonreactive Nonreactive [facility] Comment: Interpretive Data Nonreactive: Antibodies to HCV [...] last revised on 2019. HepBsAg Nonreactive Nonreactive [facility] Blood 01/07/2023 7:40 AM CDT 01/07/2023 7:49 AM CDT Boris Solomon MD LAB MICROBIOLOGY - GENERAL ORD [place] [address] [address] Department of Laboratories [place], [place] [id number] from Last 3 Months or Most Recently Relevant to Health Maintenance Insurance MEDICARE [facility] MEDICARE BLUE CROSS MEDICARE SUPPLEMENT Advance Directives For more information, please contact: [phone] Documents on File Type Date Recorded Patient Train Starter Expl anation ADVANCE DIRECTIVE 11/04/2021 9:22 AM POWER OF VENEER STOCK GRADER-MEDICAL * Full Code (Latest Code Status on [...] 9:39 AM 11/03/2021 5:05 PM Care Teams Service Line Coordinator Relationship Specialty Start Date End Date Radha Brock MD [address] [place] [address] PCP - General 10/03/16 Yasmany Esquivel MD [address] [place] [address] Referring Physician Nephrology 11/03/21 Julian [place] [id number] [address] Surgeon Orthopedic Surgery 01/12/23
--- OUTSIDE RECORDS SUMMARY | 2025-01-19 11:44 | XMS_ITS | Clinical Summary ---
Author Organization [facility] Address [address] [place] [address] Care Team Providers Care Conservation Specialist Name Role Phone Radha Brock MD Primary Care Provider Source Comments [facility],non-owned Affiliates and Associated Physician Practices is amultiple site organization consisting of ambulatory clinics and hospital sitesin [place], [place], [place] and [place]. This disclosure is being madepursuant to the Care Everywhere program and may not contain all information available regarding this patient. Last updated 18.[facility] [employer] Allergies Active Allergy Reactions Criticality Noted Date Comments Ciprofloxacin Dizziness 06/01/2020 Clindamycin Diarrhea Low 11/13/2023 Labetalol Dizziness 06/01/2020 Metronidazole Itching,Unknown Low 04/30/2018 Penicillins Rash Medium 06/01/2020 Simvastatin Rash Medium 12/14/2015 Sulfa Antibiotics Rash,Unknown Medium 03/03/2019 Terbinafine Elevated Blood Pressure Medium 06/01/2020 Triamterene Itching Low 07/12/2020 Hydrochlorothiazide W-Triamterene Itching 06/01/2020 Tramadol Rash Medium 06/01/2020 Hydrocodone-Acetaminophen Itching 06/01/2020 Medications * Be aware that medications may not be up to date on this document. Alwaysverify current medications with the patient. atorvastatin (LIPITOR) 40 MG tablet Take 1 (one) tablet by mouth at bedtime Active carvedilol (COREG) 25 MG tablet Take 1 (one) tablet by mouth 2 times daily with morning and evening meal Active glimepiride (AMARYL) 4 MG tablet Take 1 (one) tablet by mouth once daily Active furosemide (LASIX) 20 MG tablet Take 4 (four) tablets by mouth 2 times daily Active hydrALAZINE (APRESOLINE) 25 MG tablet Take 4 (four) tablets by mouth 3 times daily Active allopurinol (ZYLOPRIM) 300 MG tablet Take 100 mg by mouth once daily Active acetaminophen (TYLENOL) 325 MG tablet Take 2 (two) tablets by mouth every 6 hours as needed Maximum allowable Acetaminophen amount = 4 Grams (4000 mg) / 24 hours. 2 Active clopidogrel (plaVIX) 75 MG tablet Take 1 (one) tablet by mouth once daily Active magnesium oxide (Mag-Ox) 400 MG tablet Take 1 (one) tablet by mouth once daily Active pantoprazole (Protonix) 40 MG packet Take 1 (one) packet by mouth once daily Active aspirin (Aspirin) 81 MG chew tablet Take 1 (one) tablet by mouth once daily Active isosorbide mononitrate CR 24hr (Imdur) 30 MG tablet Take 1 (one) tablet by mouth once daily Active nitroGLYCERIN (Nitrostat) 0.4 MG tablet Dissolve 1 (one) tablet under the tongue every 5 minutes as needed for Angina Active renal vitamin (Dialyvite) tablet Take 1 (one) tablet by mouth every evening Active vitamin D3 (Cholecalcifero l) 10 MCG (400 UNIT) tablet Take 1 (one) tablet by mouth once daily Active Active Problems Problem Noted Date Diagnosed Date Cerebrovascular accident (CVA) due to other access [facility] anism 12/07/2023 Hypoxemia requiring supplemental oxygen 08/28/19 22 Pre-transplant evaluation for kidney transplant 04/09/2021 Overview (04/11/2021): Images from the original note were not included. Leidy Voss 1945 Referring Neon Molder: Yasmany Esquivel Listing Date: Dialysis Info: Type: Time: (Not currently on dialysis) days Blood Type: There is no height or weight on file to calculate BMI. ALERTS Director Bioinformatics: Past Medical History: Diagnosis Date Arthropathy ankle [...] Procedure Laterality Date ANKLE SURGERY Right 10/15/2010 Montegut's CARDIAC STERNAL PRECAUTION 09/10/2011 x2 Cholecystectomy, Open 1988 Coronary Artery Bypass Graft 11/14/2011 4 bypass HAND SURGERY 1990 carpal Tunnel Hysterectomy 1985 total. Kirsten Hatch [facility] SHOULDER PROCEDURE/SURGERY 2019 Tonsillectomy 195 Social [...] Friends and Family: Not on file Attends Worship Services: Not on file Active Member of [...] did remove several times a day for [id number] exercises Follow-up in 3 weeks, likely discontinue [...] blurry vision which was worked up at [place]. No stroke was noted. Follow-up note 04/30/2018: [...] of her shoulder surgery. Office visit with [facility] 06/05/2020: She is here under the advice [...] also been advised to follow-up with her underwriting service representative. Prior to this recent illness she states she was able to lose 15 lb by eating healthier but she has now regained this weight. Currently she is drinking two 32 oz containers of water a day. Despite all this she states I feel fine. Office visit with [facility] 07/12/2020: after her last office visit she had an echo showing diastolic dysfunction. She had appt with Dr. Esquivel who increased her furosemide (her perception is this is a temporary increase), and she is also now under the care of a underwriting service representative Dr. Alfaro at [facility], and has had 2 units PRBC [...] for this visit: Coronary artery disease of [place] artery of [place] heart with stable angina pectoris (CMS/HCC) (Primary) [...] sooner as clinically indicated Marcio Julien MD, [facility] Pertinent Previous Committee Presentations: Labs: PTH: A1c: [...] Signed By: Marcio Julien MD 2020-08-17 17:33:04 QA TEST LEAD [facility]: 11/11/2011 C CXR: CT abd/pelvis non-contrast: Renal [...] Pap: Panorex/Dental: SW: RD: Items Still Pending: Family History Medical History Relation Name Comments Cancer Father Diabetes; unknown type Mother Heart Failure Mother Hypertension Mother Diabetes; unknown type Sister Relation Name Status Comments Brother (Age 50's) in an accident Daughter Alive Father (Age 56) Mother (Age 75) Sister Alive Son Alive Social History Tobacco Use Types Packs/Day Years Used Date Smoking Tobacco: Never Smokeless Tobacco: Never Alcohol Use Standard Drinks/Week Comments Yes 0 (1 standard drink = 0.6 oz pur e alcohol) occasional AUDIT-C Answer Date Recorded Q1: How often do you have a drink containing alcohol? Never 12/08/2023 Q2: How many drinks containi ng alcohol do you have on a typical day when you are drinking? Patient does not drink Q3: How often do you have si x or more drinks on one occasion? Never 12/08/2023 Overall Financial Resource Strain (CARDIA) Answe r Date Recorded How hard is it for you to pa y for the very basics like food, housing, medical care, and heating? Not hard at all 12/08/2023 PHQ-2 Answer Date Recorded Patient Health Questionnaire-2 Score 0 12/09/2023 [facility] Occupat ional Health - Occupational Stress Questionnaire Answer Date Recorded Do you feel stress - tense, restless, nervous, or anxious, or unable to sleep at night because your mind is troubled all the time - these days? Not at all 12/08/2023 Hunger Vital Sign Answer Date Recorded Within the past 12 months, y ou worried that your food would run out before you got the money to buy more. Never true 12/08/19 24 Within the past 12 months, t he food you bought just didn't last and you didn't have money to get more. Never true 12/08/2023 PRAPARE - Transportation Answer Date Re corded In the past 12 months, has l ack of transportation kept you from medical appointments or from getting medications? No 10/2023 In the past 12 months, has l ack of transportation kept you from meetings, work, or from getting things needed for daily living? No 12/08/2023 Housing Stability Vital Sign Answer Seth e Recorded In the last 12 months, was t here a time when you were not able to pay the mortgage or rent on time? No 12/08/2023 In the last 12 months, how many places have you lived? 1 12/08/2023 In the last 12 months, was t here a time when you did not have a steady place to sleep or slept in a fci (including now)? No 12/08/2023 Comments Unknown Sex and Gender Information Value Date Recorded Sex Assigned at Not on file Legal Sex Female 5:51 AM QA TEST LEAD Gender Identity Not on file Sexual Orientation Not on file Last Filed Vital Signs Vital Sign Reading Time Taken Comments Blood Pressure 153/38 12/09/2023 11:30 AM CDT Pulse 61 12/09/2023 11:30 AM CDT Temperature 36.8 C (98.2 F) 12/09/2023 11:30 AM CDT Respiratory Rate 22 12/09/2023 11:30 AM CDT Oxygen Saturation 100% 12/09/2023 8:32 AM CDT Inhaled Oxygen Concentration - - Weight 61.5 kg (135 lb 9.3 oz) 12/09/2023 1:00 P M CDT Height 149.9 cm (4' 11.02) 12/09/2023 1:00 PM C DT Body Mass Index 27.37 12/09/2023 1:00 PM CDT Plan of Treatment Health Maintenance Due Date Last Done Comments BONE DENSITY TESTING 1945 MEDICARE AWV 12 MONTHS 1945 DTAP/TDAP/TD VACCINES (1 - Tdap) 1964 PNEUMOCOCCAL VACCINE 50+ (1 of 2 - PCV) 1964 HEPATITIS B VACCINE (1 of 3 - Risk Dialysis 4-dose series) 1965 ZOSTER VACCINE (1 of 2) 1995 Respiratory Syncytial Virus (RSV) Vaccine Pt: or over 60 yrs (1 - 1-dose 75+ series) 2020 COVID-19 VACCINE (1 - season) 2024 DEPRESSION SCREENING 07/06/2024 INFLUENZA VACCINE (#1) 2025 2, 04/21/2022, 07/19/2021, Additional history exists HIB VACCINE Aged Out No longer eligi ble based on patient's age to complete this topic HPV VACCINE Aged Out No longer eligi ble based on patient's age to complete this topic MENINGOCOCCAL (Group B) VACCINE SHARED DECISION-MAKING Aged Out No longer eligible based on patient's age to complete this topic MENINGOCOCCAL GROUPS A/C/Y/W VACCINE Aged Out No longer eligible based on patient's age to complete this topic Medical Devices Implanted Type [employer] Device Identifier Shelf Expiration Date Model / Serial / Lot Wire K .045in X 5.5in Implanted:Qty: 1 on 08/28/2021 by Óscar Fleming MD at [facility] Right: [employer] 0 / / Insurance [facility] MEDICARE [facility] MEDICARE [facility] Advance Directives * Full Code (Latest Code Status on File) Date Activated Date Inactivated Comments 12/08/2023 10:50 AM 12/09/2023 3:26 PM * Full Code Date Activated Date Inactivated Comments 08/28/2021 7:41 PM 08/29/2021 5:15 PM Care Teams Conservation Specialist Relationship Specialty Start Date End Date Radha Brock MD [address] [place] [id number] PCP - General Family Medicine 03/03/14
--- OUTSIDE RECORDS SUMMARY | 2025-01-19 11:44 | XMS_ITS | Data Portability ---
Author Organization [facility], [address] [place] [address] Neurology (MD) Address [address] [place] [address] Care Team Providers Care Pressroom Worker Name Role Phone MARYELLEN MANUEL Primary Care Provider [phone] Assessment Encounter Date Assessment Date Assessment LastModified [...] By Organization Details Last Modified Time 02/09/2024 [id number] Plan of care reviewed and discussed with patient. Patient verbalizes understanding and has no questions. Professional minutes spent face to face, chart review, and chart documentation with patient: 15 [email or web address] Not available 02/09/2024 10:21:02 Reason for Referral None Reported. Results Created Date Observation Date Name Description Value Unit Range Abnormal Flag Note LastModifiedBy Organization Detail LastModifiedTime 01/16/20 24 11/12/2022 imagi ng/major tracy tic resul t No observ ation record ed. [email or web address] Not Available 10:07:30 Result Notes None recorded. Problems Name Problem SNOMED Code Status Onset Date Resolution Date Notes Provider Name and Address Organization Details Recorded Time Itching of skin 956406933 Active 2023 Neha Drummond PA-C [address] , [place], [address], [facility] 4 16:53:14 Inflamed seborrheic keratosis 376788819 Active 2023 Neha Drummond PA-C [address], [place], [address], [facility] 4 16:53:19 Solar degeneration 54944030 Active 2023 Neha Drummond PA-C [address], [place], [address], [facility] 4 16:53:25 Problem Notes None recorded. Medical Equipment None Reported. Allergies Allergen ID Allergen Name Allergen Category Reaction Reaction Severity Criticality Documentation Date Start Date Code Code System Note Provider Name and Address Organization Details Recorded Time 475442 ciproflox acin hydrochlo ride medicatio n dizziness Not available Not available 08/03/20232015 81714 RxNorm React ion: Dizzi ness; Nause a; Comme nt: React ion Date: 03 Jul 2015 ; Not Available [facility] 4 21:58:28 547988 acetamino phen / hydrocodo ne medicatio n nausea Not available Not available 08/03/20232015 85203 2 RxNorm React ion: Nause a; Comme nt: React ion Date: 03 Jul 2015 ; Not Available [facility] 4 21:58:28 464506 labetalol hydrochlo ride medicatio n Not available Not available Not available 08/03/20232015 3 RxNorm Comme nt: React ion Date: 03 Jul 2015 ; Not Available [facility] 4 21:58:28 780890 purified protein derivativ e of tuberculi n medicatio n Not available Not available Not available 08/03/20232015 8948 RxNorm Comme nt: React ion Date: 03 Jul 2015 ; Not Available [facility] 4 21:58:28 907578 simvastat in medicatio n Not available Not available Not available 08/03/20232015 38730 RxNorm Comme nt: React ion Date: 03 Jul 2015 ; Not Available [facility] 4 21:58:29 212874 terbinafi ne hydrochlo ride medicatio n Not available Not available Not available 08/03/20232015 41873 8 RxNorm Comme nt: React ion Date: 03 Jul 2015 ; Not Available [facility] 4 21:58:29 100786 Product containin g penicilli n (product) medicatio n Not available Not available Not available 08/03/20232015 16305 8001 SNOMED Comme nt: React ion Date: 03 Jul 2015 ; Not Available [facility] 4 21:58:29 632943 tramadol hydrochlo ride medicatio n Not available Not available Not available 08/03/20232015 67539 RxNorm Comme nt: React ion Date: 03 Jul 2015 ; Not Available [facility] 4 21:58:29 931312 Substance with sulfonami de structure and antibacte rial mechanism of action (substanc e) medicatio n Not available Not available Not available 08/03/20232015 23088 8003 SNOMED Comme nt: React ion Date: 03 Jul 2015 ; Not Available [facility] 4 21:58:29 Medications Name Sig Start Date Stop Date [...] Not Available No t Available Dexcom G7 Pastry Cook Helper USE DIRECTED FOR CHECKING SUGARS active Not [...] SNOMED-CT Code Diagnosis ICD10 Code Diagnosis Note [id number] Neha Drummond PA-C [facility] ([place]) [address] [place] [address] 02/09/2024 10:02:01 02/09/2024 10:22:31 Itching of skin 197303370 L29.9 Inflamed s eborrheic keratosis 389836946 L82.0 Solar degeneration 93786 006 L57.9 Health Concerns Section Related Observation LastModified by Organization Detai ls LastModified Time None Recorded Concern Status LastModified by Organization Details LastModified Time None Recorded Advance Directives Directive None Recorded Payers Insurance Date Sequence Insurance Name Policy Number Policy Manzo Covered Member ID Manzo Member ID Guarantor Name 02/09/2024 1 [place] Leidy Voss [id number] Leidy Voss 02/09/2024 2 [place] [id number] Leidy Voss [id number] Leidy Voss Notes Date Note Type Note Provider Name and Address Organization Details Recorded Time 02/09/2024 text/html 6 mo recheck of ISK treated with cryo to right shoulder. Also itching treated to right shoulder/upper back with triamcinolone cream. 6 mo recheck. right shoulder healing well. and itching has subsided. no other concerns. Neha Drummond PA-C [facility] [place] [address], [phone], [facility] 02/09/2024 10:21:38 OBGyn Episode No OBEpisode recorded.
--- OUTSIDE RECORDS SUMMARY | 2025-01-19 12:11 | XMS_ITS | Clinical Summary ---
Author Organization [facility] Address [address], [facility] [address] [place] [address] Phone Care Team Providers Care Record Maker Name Role Phone Radha Brock MD Primary Care Provider [phone] Radha Brock MD Unavailable [phone] Lore Alfaro MD Unavailable Allergies Active Allergy [...] Comments Blood Pressure 122/44 05/16/2022 12:07 PM SAWSMITH Pulse 54 05/16/2022 12:07 PM SAWSMITH Temperature 36.2 C (97.1 F) 05/16/2022 12:07 PM SAWSMITH Respiratory Rate 16 05/16/2022 12:0 7 PM SAWSMITH Oxygen Saturation 94% 05/16/2022 12: 07 PM SAWSMITH Inhaled Oxygen Concentration - - Weight 63.8 kg (140 lb 11.2 oz) 022 12:07 PM SAWSMITH Height 149.9 cm (4' 11) 05/16/2022 12: 07 PM SAWSMITH Body Mass Index 28.42 05/16/2022 12:07 PM SAWSMITH Plan of Treatment Health Maintenance Due Date [...] age to complete this topic Insurance MEDICARE [employer] Care Teams Record Maker Relationship Specialty Start Date End Date Radha Brock MD [address] [place] [address] PCP - General Family Medicine 03/08/20 Radha Brock MD [address] [place] [address] Referring Provider Family Medicine 03/08/20 Lore Alfaro MD [address] [place] [address] [place] [address] Consulting Physician Oncology 06/19/20
--- OUTSIDE RECORDS SUMMARY | 2025-01-19 12:11 | XMS_ITS | Encounter Summary ---
Author Organization [facility] Address [facility] [place] [address] Care Team Providers Care Head Of Stock Name Role Phone Radha Brock MD Primary Care Provider [phone] Radha Brock MD Primary Care Provider [phone] Encounter Details Date Type Department Care Team (Late Contact Info) Description 10/04/2020 Community Orders [facility] Nicol Monteiro FNP Social History Tobacco Use Types Packs/Day Years Used Date Smoking Tobacco: Never Smokeless Tobacco: Never Alcohol Use Standard Drinks/Week Comments Yes 0 (1 standard drink = 0.6 oz pur e alcohol) rare Comments No Sex and Gender Information Value Date Recorded Sex Assigned at Female 07/27/2024 3:06 PM DRAPERY OPERATOR Legal Sex Female 9:21 PM CDT Gender Identity Not on file Sexual Orientation Not on file documented as of this encounter Plan of Treatment Upcoming Encounters Date Type Department Care Team (Late Contact Info) Description 06/08/2025 8:30 AM DRAPERY OPERATOR Appointment [facility] REFINERY OPERATOR COKING Mammography [address] [place] [address] Radha Brock MD [address] [place] [phone] documented as of this encounter Results * (ABNORMAL) LIPID PANEL (10/08/2020 9:08 AM CDT) CHOLESTEROL 147 0 - 199 MG/DL 10/08/2020 10:39 AM CDT [facility] TRIGLYCERIDES 191(H) 0 - 149 MG/DL 10/08/2020 10:39 AM CDT [facility] HDL 46 >39 MG/DL 10/08/2020 10:39 AM CDT [facility] LDL (CALCULATED) 63 <100 MG/DL 10/09/19 10:39 AM CDT [facility] VLDL CALCULATION 38 MG/DL 10/09/19 10:39 AM CDT [facility] Comment:REFERENCE RANGE NOT ESTABLISHED CHOL/HDL RATIO 3.2 10/08/2020 10:39 AM CDT [facility] Comment:REFERENCE RANGE NOT ESTABLISHED LDL/HDL 1.0 10/08/2020 10:39 AM CDT [facility] Comment:REFERENCE RANGE NOT ESTABLISHED NON HDL CHOLESTEROL 101 MG/DL 10/08/2020 10:39 AM CDT [facility] Comment:REFERENCE RANGE NOT ESTABLISHED 10/08/2020 9:08 AM CDT Nicol Monteiro [facility] F inal Result [facility] [address] [place] [address], * (ABNORMAL) BASIC METABOLIC PANEL (10/08/2020 9:08 AM CDT) SODIUM S/P/B 139 136 - 145 MMOL/L 10/08/2020 10:39 AM CDT [facility] POTASSIUM S/P/B 5.0 3.5 - 5.1 MMOL/L 10/08/2020 10:39 AM CDT [facility] CHLORIDE S/P/B 108(H) 98 - 107 MMOL/L 10/08/2020 10:39 AM [facility] CO2 22.0 21.0 - 32.0 MMOL/L 10/08/2020 10:39 AM [facility] GLUCOSE 143(H) 74 - 106 MG/DL 10/08/2020 10:39 AM [facility] BUN 41(H) 7 - 18 MG/DL 10/08/2020 10:39 AM [facility] CREATININE S/P/B 2.60(H) 0.55 - 1.02 MG/DL 10/08/2020 10:39 AM [facility] CALCIUM S/P/B 8.9 8.5 - 10.1 MG/DL 10/08/2020 10:39 AM [facility] ANION GAP 9.0 5.0 - 15.0 MMOL/L 10/08/2020 10:39 AM [facility] OSMOLALITY (CALC) 301 MOSM/KG 021 10:39 AM [facility] Comment:REFERENCE RANGE NOT ESTABLISHED EGFR NON-AFR. AMER. 17(L) >89 ML/MIN/1. 73 M2 10/08/2020 10:39 AM [facility] EGFR AFR. AMER. 20(L) >89 ML/MIN/1. 73 M2 10/08/2020 10:39 AM [facility] GFR NOTES GFR REFERENCE S: 10/08/2020 10:39 AM [facility] Comment: THE ESTIMATED GFR IS CALCULATED USING THE 2009 CKD-EPI EQUATION. THE FOLLOWING CATEGORIES FOR GRADING RENAL FUNCTION ARE RECOMMENDED BY THE INTERNATIONAL SOCIETY OF NEPHROLOGY (KDIGO 2012 CLINICAL PRACTICE GUIDELINE). G1,NORMAL OR HIGH: >89 ml/min/1.73 m2 G2,MILDLY DECREASED: 60-89 ml/min/1.73 m2 G3A,MILDLY TO MODERATELY DECREASED: 45-59 ml/min/1.73 m2 G3B,MODERATELY TO SEVERELY DECREASED: 30-44 ml/min/1.73 m2 G4,SEVERELY DECREASED: 15-29 ml/min/1.73 m2 G5,KIDNEY FAILURE: <15 ml/min/1.73 m2 10/08/2020 9:08 AM CDT Nicol Juddstner [facility] F inal Result Performing Organization Address [facility] de Phone Number [facility] [address] [place] [address], * (ABNORMAL) HEMOGLOBIN, GLYCOSYLATED (10/08/2020 9:08 AM CDT) HGB A1C 5.6 4.2 - 6.3 % 10/08/2020 10:42 AM CDT [facility] Comment: ADA GUIDELINES 5.7 TO 6.4% INCREASED RISK OF DIABETES > OR = 6.5% CONSISTENT WITH DIABETES ESTIMATED AVG GLUCOSE 114(H) 74 - 106 MG/DL 10/08/2020 10:42 AM CDT [facility] 10/08/2020 9:08 AM CDT Nicol Prabha Thania [facility] F inal Result Performing Organization Address [facility] de Phone Number [facility] [address] [place] [address], documented in this encounter Visit Diagnoses Diagnosis Diabetes (CMS/HCC HHS/HCC)- Primary documented in this encounter Additional Health Concerns Infection Onset Date Last Indicated Resolved Time COVID-19 Rule Out 02/18/2021 02/18/2021 02/18/2021 4:07 PM CDT COVID-19 Rule Out 06/05/2021 06/05/2021 06/06/2021 8:02 AM DRAPERY OPERATOR COVID-19 Rule Out 08/31/2021 08/31/2021 08/31/2021 1:35 AM DRAPERY OPERATOR COVID-19 Rule Out 03/06/2022 03/06/2022 03/06/2022 9:42 PM CDT COVID-19 Rule Out 04/16/2022 04/16/2022 04/16/2022 5:15 AM CDT COVID-19 Rule Out 04/16/2022 04/16/2022 04/16/2022 10:56 PM CDT ESBL - Extended Spectrum Beta-lactamase 02/03/2023 02/03/2023 documented as of this encounter Care Teams Head Of Stock Relationship Specialty Start Date End Date Radha Brock MD [address] [place] [address] PCP - General FAMILY PRACTICE 12/31/18 09/29/22 Radha Brock MD [address] [place] [address] PCP - General FAMILY PRACTICE 09/30/22 documented as of this encounter
--- OUTSIDE RECORDS SUMMARY | 2025-01-19 12:12 | XMS_ITS | Encounter Summary ---
Author Organization [facility] System Address [facility] [place] [address] Care Team Providers Care Wall Worker Name Role Phone Radha Brock MD Primary Care Provider [phone] Radha Brock MD Primary Care Provider [phone] Encounter Details Date Type Department Care Team (Late Contact Info) Description 07/22/1985 Abstract [facility] Conversion [address] [place] [address] , Generic ConversionMD Social History Tobacco Use Types Packs/Day Years Used Date Smoking Tobacco: Never Assessed Comments Unknown Sex and Gender Information Value Date Recorded Sex Assigned at Female 07/27/2024 3:06 PM AUDIO TECHNICIAN Legal Sex Female 9:21 PM CDT Gender Identity Not on file Sexual Orientation Not on file documented as of this encounter Plan of Treatment Upcoming Encounters Date Type Department Care Team (Late Contact Info) Description 06/08/2025 8:30 AM AUDIO TECHNICIAN Appointment [facility] SECURITY POLICE Mammography [address] [place] [address] Radha Brock MD [address] [place] [address] documented as of this encounter Visit Diagnoses Not on filedocumented in this encounter Additional Health Concerns Infection Onset Date Last Indicated Resolved Time COVID-19 Rule Out 02/18/2021 02/18/2021 02/18/2021 4:07 PM CDT COVID-19 Rule Out 06/05/2021 06/05/2021 06/06/2021 8:02 AM AUDIO TECHNICIAN COVID-19 Rule Out 08/31/2021 08/31/2021 08/31/2021 1:35 AM AUDIO TECHNICIAN COVID-19 Rule Out 03/06/2022 03/06/2022 03/06/2022 9:42 PM CDT COVID-19 Rule Out 04/16/2022 04/16/2022 04/16/2022 5:15 AM CDT COVID-19 Rule Out 04/16/2022 04/16/2022 04/16/2022 10:56 PM CDT ESBL - Extended Spectrum Beta-lactamase 02/03/2023 02/03/2023 documented as of this encounter Care Teams Wall Worker Relationship Specialty Start Date End Date Radha Brock MD [address] [place] [address] PCP - General FAMILY PRACTICE 12/31/18 09/29/22 Radha Brock MD [address] [place] [address] PCP - General FAMILY PRACTICE 09/30/22 documented as of this encounter
--- OUTSIDE RECORDS SUMMARY | 2025-01-19 12:12 | XMS_ITS | Encounter Summary ---
Author Organization [facility] System Address [facility] [place] [address] Care Team Providers Care Switchboard Wire Worker Helper Name Role Phone Radha Brock MD Primary Care Provider [phone] Radha Brock MD Primary Care Provider [phone] Encounter Details Date Type Department Care Team (Late Contact Info) Description 04/30/2020 Community Orders [facility] EPICCARE LINK Radha Brock MD [address] [place] [address] Social History Tobacco Use Types Packs/Day Years Used Date Smoking Tobacco: Never Comments No Sex and Gender Information Value Date Recorded Sex Assigned at Female 07/27/2024 3:06 PM CORRECTION OFFICER Legal Sex Female 9:21 PM CDT Gender Identity Not on file Sexual Orientation Not on file COVID-19 Exposure Response Date Recorded In the last month, have you been in contact with someone who was confirmed or suspected to have Coronavirus / COVID-19? No / Unsure 04/30/2020 3:44 PM CDT documented as of this encounter Plan of Treatment Upcoming Encounters Date Type Department Care Team (Late Contact Info) Description 06/08/2025 8:30 AM CORRECTION OFFICER Appointment [facility] RN PRIOR AUTHORIZATION Mammography [address] [place] [address] Radha Brock MD [address] [place] [address] documented as of this encounter Results * XR FOOT LT 3V (04/30/2020 3:44 PM CDT) Anatomical Region Laterality Modality Foot Radiographic Luisana ging 04/30/2020 5:33 PM CDT Impressions 04/30/2020 5:35 PM CDT IMPRESSION: 1. No evidence of acute fracture, dislocation, or cortical destruction. 2. Degenerative changes and calcaneal spur as described. Interpreted By: Deandre Hunter MD, 04/30/2020 5:33 PM Narrative 04/30/2020 5:35 PM CDT Left foot Exam Date: 04/30/2020 at 1604 hours. Indications: Left foot pain. Technique: 3 views of the left foot were obtained. Comparison: None. Findings: No evidence of acute fracture, dislocation, or cortical destruction. There are degenerative changes in the intertarsal joints, tarsometatarsal joints, metatarsophalangeal joints and DIP joints. There is a moderate-sized plantar calcaneal spur. Procedure Note Deandre Hunter MD - 04/30/2020 Left foot Exam Date: 04/30/2020 at 1604 hours. Indications: Left foot pain. Technique: 3 views of the left foot were obtained. Comparison: None. Findings: No evidence of acute fracture, dislocation, or cortical destruction.There are degenerative changes in the intertarsal joints, tarsometatarsaljoints, metatarsophalangeal joints and DIP joints. There is amoderate-sized plantar calcaneal spur. IMPRESSION: 1. No evidence of acute fracture, dislocation, or cortical destruction. 2. Degenerative changes and calcaneal spur as described. Interpreted By: Deandre Hunter MD, 04/30/2020 5:33 PM Radha Brock MD GENERAL IMAGING Final Result documented in this encounter Visit Diagnoses Diagnosis Foot pain, left- Primary Pain in limb Foot pain, left Pain in limb documented in this encounter Additional Health Concerns Infection Onset Date Last Indicated Resolved Time COVID-19 Rule Out 02/18/2021 02/18/2021 02/18/2021 4:07 PM CDT COVID-19 Rule Out 06/05/2021 06/05/2021 06/06/2021 8:02 AM CORRECTION OFFICER COVID-19 Rule Out 08/31/2021 08/31/2021 08/31/2021 1:35 AM CORRECTION OFFICER COVID-19 Rule Out 03/06/2022 03/06/2022 03/06/2022 9:42 PM CDT COVID-19 Rule Out 04/16/2022 04/16/2022 04/16/2022 5:15 AM CDT COVID-19 Rule Out 04/16/2022 04/16/2022 04/16/2022 10:56 PM CDT ESBL - Extended Spectrum Beta-lactamase 02/03/2023 02/03/2023 documented as of this encounter Care Teams Switchboard Wire Worker Helper Relationship Specialty Start Date End Date Radha Brock MD [address] [place] [address] PCP - General FAMILY PRACTICE 12/31/18 09/29/22 Radha Brock MD [address] [place] [address] PCP - General FAMILY PRACTICE 09/30/22 documented as of this encounter
--- OUTSIDE RECORDS SUMMARY | 2025-01-19 12:12 | XMS_ITS | Encounter Summary ---
Author Organization [facility] System Address [facility] [place] [address] Care Team Providers Care Flake Miller Wheat And Oats Name Role Phone Radha Brock MD Primary Care Provider [phone] Radha Brock MD Primary Care Provider [phone] Encounter Details Date Type Department Care Team (Late Contact Info) Description 02/20/2020 Community Orders [facility] EPICCARE LINK Nicol Monteiro FNP Social History Tobacco Use Types Packs/Day Years Used Date Smoking Tobacco: Never Comments No Sex and Gender Information Value Date Recorded Sex Assigned at Female 07/27/2024 3:06 PM IT INFRASTRUCTURE ENGINEER Legal Sex Female 9:21 PM CDT Gender Identity Not on file Sexual Orientation Not on file COVID-19 Exposure Response Date Recorded In the last month, have you been in contact with someone who was confirmed or suspected to have Coronavirus / COVID-19? No / Unsure 02/21/2020 10:57 AM CDT documented as of this encounter Plan of Treatment Upcoming Encounters Date Type Department Care Team (Late Contact Info) Description 06/08/2025 8:30 AM IT INFRASTRUCTURE ENGINEER Appointment [facility] MEDICAL EQUIPMENT TECHNICIAN Mammography [address] [place] [address] Radha Brock MD [address] [place] [address] documented as of this encounter Results * (ABNORMAL) VITAMIN D, 25 OH (02/21/2020 11:03 AM CDT) VITAMIN D 25 HYDROXY S/P/B 17.9(L) 30.0 - 50.0 NG/ML 02/21/2020 2:23 PM CDT [facility] Comment: DEFICIENCY <20 ng/mL INSUFFICIENCY 20-<30 ng/mL SUFFICIENCY 30-50 ng/mL 02/21/2020 11:0 3 AM CDT Nicol Prabha Monteiro [facility] F inal Result Performing Organization Address [facility] Co de Phone Number [facility] [address] [place] [address], * (ABNORMAL) HEMOGLOBIN, GLYCOSYLATED (02/21/2020 11:03 AM CDT) HGB A1C 7.2(H) 4.2 - 6.3 % 02/21/2020 12:36 PM CDT [facility] Comment: ADA GUIDELINES 5.7 TO 6.4% INCREASED RISK OF DIABETES > OR = 6.5% CONSISTENT WITH DIABETES ESTIMATED AVG GLUCOSE 160(H) 74 - 106 MG/DL 02/21/2020 12:36 PM CDT [facility] 02/21/2020 11:0 3 AM CDT Nicol Prabha Thania [facility] F inal Result Performing Organization Address [facility]/ZIP Co de Phone Number [facility] [address] [place] [address], [place] [phone] * LIPID PANEL (02/21/2020 11:03 AM CDT) CHOLESTEROL 140 0 - 199 MG/DL 02/21/2020 12:34 PM CDT [facility] TRIGLYCERIDES 123 0 - 149 MG/DL 02/21/2020 12:34 PM CDT [facility] HDL 43 >39 MG/DL 02/21/2020 12:34 PM CDT [facility] LDL (CALCULATED) 72 <100 MG/DL 02/21/20 12:34 PM CDT [facility] VLDL CALCULATION 25 MG/DL 02/21/20 12:34 PM CDT [facility] Comment:REFERENCE RANGE NOT ESTABLISHED CHOL/HDL RATIO 3.3 02/21/2020 12:34 PM CDT [facility] Comment:REFERENCE RANGE NOT ESTABLISHED LDL/HDL 2.0 02/21/2020 12:34 PM CDT [facility] Comment:REFERENCE RANGE NOT ESTABLISHED NON HDL CHOLESTEROL 97 MG/DL 02/21/2020 12:34 PM CDT [facility] Comment:REFERENCE RANGE NOT ESTABLISHED 02/21/2020 11:0 3 AM CDT Nicol Monteiro [facility] F inal Result [facility] [address] [place] [address], * (ABNORMAL) COMPREHENSIVE METABOLIC PANEL (02/21/2020 11:03 AM CDT) SODIUM S/P/B 141 136 - 145 MMOL/L 02/21/2020 12:34 PM CDT [facility] POTASSIUM S/P/B 5.8(H) 3.5 - 5.1 MMOL/L 02/21/2020 12:34 PM CDT [facility] CHLORIDE S/P/B 113(H) 98 - 107 MMOL/L 02/21/2020 12:34 PM CDT [facility] CO2 22.0 21.0 - 32.0 MMOL/L 02/21/2020 12:[address] [facility] GLUCOSE 127(H) 74 - 106 MG/DL 02/21/2020 12:[address] [facility] BUN 58(H) 7 - 18 MG/DL 02/21/2020 12:[address] [facility] CREATININE S/P/B 2.54(H) 0.55 - 1.02 MG/DL 02/21/2020 12:34 PM T [facility] CALCIUM S/P/B 10.1 8.5 - 10.1 MG/DL 02/21/2020 12:34 PM T [facility] BILIRUBIN TOTAL S/P/B 0.3 0.2 - 1.0 MG/DL 02/21/2020 12:[address] [facility] ALKALINE PHOSPHATASE S/P/B 78 45 - 117 U/L 02/21/2020 12:[address] [facility] AST 13(L) 15 - 37 U/L 02/21/2020 12:[address] [facility] ALT 18 13 - 56 U/L 02/21/2020 12:[address] [facility] TOTAL PROTEIN S/P/B 7.8 6.4 - 8.2 G/DL 02/21/2020 12:[address] [facility] ALBUMIN S/P/B 3.3(L) 3.4 - 5.0 G/DL 02/21/2020 12:[address] [facility] ANION GAP 6.0 5.0 - 15.0 MMOL/L 02/21/2020 12:[address] [facility] OSMOLALITY (CALC) 310 MOSM/KG 020 12:[address] [facility] Comment:REFERENCE RANGE NOT ESTABLISHED EGFR NON-AFR. AMER. 18(L) >89 ML/MIN/1. 73 M2 02/21/2020 12:[address] [facility] EGFR AFR. AMER. 21(L) >89 ML/MIN/1. 73 M2 02/21/2020 12:34 PM CDT [facility] GFR NOTES GFR REFERENCE S: 02/21/2020 12:34 PM CDT [facility] Comment: THE ESTIMATED GFR IS CALCULATED [...] ml/min/1.73 m2 G5,KIDNEY FAILURE: <15 ml/min/1.73 m2 02/21/2020 11:0 3 AM CDT us Nicol Monteiro [facility] [employer] F inal Result [facility] [address] [place] [id number], * (ABNORMAL) CBC W/DIFF AUTOMATED (02/21/2020 11:03 AM CDT) WBC 9.5(H) 4.6 - 9.1 x10'3/uL 02/21/2020 12:15 PM CDT [facility] RBC 3.37(L) 3.90 - 5.00 x10'6/uL 02/21/2020 12:15 PM CDT [facility] HGB 9.5(L) 11.8 - 14.7 G/DL 02/21/2020 12:15 PM CDT [facility] HCT 30.6(L) 36.3 - 45.2 % 02/21/2020 12:15 PM CDT [facility] MCV 90.8 80.0 - 98.0 FL 02/21/2020 12:15 PM CDT [facility] MCH 28.2 26.8 - 32.1 PG 02/21/2020 12:15 PM CDT [facility] MCHC 31.0 30.7 - 34.2 G/DL 02/21/2020 12:15 PM CDT [facility] RDW 14.1 12.0 - 14.8 % 02/21/2020 12:15 PM CDT [facility] PLT 233 145 - 358 x10'3/uL 02/21/2020 12:15 PM CDT [facility] MPV 9.5 8.8 - 12.3 FL 02/21/2020 12:15 PM CDT [facility] SEG NEUTROPHILS 68.4 % 0 12:15 PM CDT [facility] LYMPHOCYTES 19.8 % 02/21/2020 12:15 PM CDT [facility] MONOCYTES 7.8 % 02/21/2020 12:15 PM CDT [facility] EOSINOPHILS 3.0 % 02/21/2020 12:15 PM CDT [facility] BASOPHILS 0.6 % 02/21/2020 12:15 PM CDT [facility] IMMATURE GRANS % 0.4 % 02/21/20 20 12:15 PM CDT [facility] NRBC 0.0 % 02/21/2020 12:15 PM CDT [facility] ABS. NEUTROPHILS 6.51(H) 2.30 - 5.70 x10'3/uL 02/21/2020 12:15 PM CDT [facility] ABS. LYMPHOCYTES 1.89 1.10 - 3.30 x10'3/uL 02/21/2020 12:15 PM CDT [facility] ABS. MONOCYTES 0.74 0.30 - 0.80 x10'3/uL 02/21/2020 12:15 PM CDT [facility] ABS. EOSINOPHILS 0.29 0.03 - 0.45 x10'3/uL 02/21/2020 12:15 PM CDT [facility] ABS. BASOPHILS 0.06 0.01 - 0.09 x10'3/uL 02/21/2020 12:15 PM CDT [facility] ABS. IMMATURE GRANULOCYTES 0.04 0.00 - 0.09 x10'3/uL 02/21/2020 12:15 PM CDT [facility] ABS. NUCLEATED RBC'S 0.00 0.00 - 0.12 x10'3/uL 02/21/2020 12:15 PM CDT [facility] 02/21/2020 11:0 3 AM CDT Nicol Monteiro [facility] F inal Result [facility] [address] [place] [address], documented in this encounter Visit Diagnoses Diagnosis Diabetes (CMS/HCC HHS/HCC)- Primary Hypertension Unspecified essential hypertension Chronic kidney disease Chronic kidney disease, unspecified Vitamin D deficiency Unspecified vitamin D deficiency documented in this encounter Additional Health Concerns Infection Onset Date Last Indicated Resolved Time COVID-19 Rule Out 02/18/2021 02/18/2021 02/18/2021 4:07 PM CDT COVID-19 Rule Out 06/05/2021 06/05/2021 06/06/2021 8:02 AM IT INFRASTRUCTURE ENGINEER COVID-19 Rule Out 08/31/2021 08/31/2021 08/31/2021 1:35 AM IT INFRASTRUCTURE ENGINEER COVID-19 Rule Out 03/06/2022 03/06/2022 03/06/2022 9:42 PM CDT COVID-19 Rule Out 04/16/2022 04/16/2022 04/16/2022 5:15 AM CDT COVID-19 Rule Out 04/16/2022 04/16/2022 04/16/2022 10:56 PM CDT ESBL - Extended Spectrum Beta-lactamase 02/03/2023 02/03/2023 documented as of this encounter Care Teams Flake Miller [employer] Oats Relationship Specialty Start Date End Date Radha Brock MD [address] [place] [address] PCP - General FAMILY PRACTICE 12/31/18 09/29/22 Radha Brock MD [address] [place] [address] PCP - General FAMILY PRACTICE 09/30/22 documented as of this encounter
--- OUTSIDE RECORDS SUMMARY | 2025-01-19 12:12 | XMS_ITS | Encounter Summary ---
Author Organization [facility] Address [facility] [place] [address] Care Team Providers Care Patcher Wood Welder Name Role Phone Radha Brock MD Primary Care Provider [phone] Radha Brock MD Primary Care Provider [phone] Encounter Details Date Type Department Care Team (Late Contact Info) Description 12/11/2018 Abstract [facility] [address] [place] [address] , Generic ConversionMD Social History Tobacco Use Types Packs/Day Years Used Date Smoking Tobacco: Never Comments Unknown Sex and Gender Information Value Date Recorded Sex Assigned at Female 07/27/2024 3:06 PM COIL CUTTER Legal Sex Female 9:21 PM CDT Gender Identity Not on file Sexual Orientation Not on file documented as of this encounter Plan of Treatment Upcoming Encounters Date Type Department Care Team (Late Contact Info) Description 06/08/2025 8:30 AM COIL CUTTER Appointment [facility] RAILROAD CAR REPAIRMAN Mammography [address] [place] [address] Radha Brock MD [address] [place] [address] documented as of this encounter Visit Diagnoses Not on filedocumented in this encounter Additional Health Concerns Infection Onset Date Last Indicated Resolved Time COVID-19 Rule Out 02/18/2021 02/18/2021 02/18/2021 4:07 PM CDT COVID-19 Rule Out 06/05/2021 06/05/2021 06/06/2021 8:02 AM COIL CUTTER COVID-19 Rule Out 08/31/2021 08/31/2021 08/31/2021 1:35 AM COIL CUTTER COVID-19 Rule Out 03/06/2022 03/06/2022 03/06/2022 9:42 PM CDT COVID-19 Rule Out 04/16/2022 04/16/2022 04/16/2022 5:15 AM CDT COVID-19 Rule Out 04/16/2022 04/16/2022 04/16/2022 10:56 PM CDT ESBL - Extended Spectrum Beta-lactamase 02/03/2023 02/03/2023 documented as of this encounter Care Teams Patcher Wood Welder Relationship Specialty Start Date End Date Radha Brock MD [address] [place] [address] PCP - General FAMILY PRACTICE 12/31/18 09/29/22 Radha Brock MD [address] [place] [address] PCP - General FAMILY PRACTICE 09/30/22 documented as of this encounter
--- OUTSIDE RECORDS SUMMARY | 2025-01-19 12:12 | XMS_ITS | Encounter Summary ---
Author Organization [facility] Address [facility] [place] [address] Care Team Providers Care Credit Support Counselor Name Role Phone Radha Brock MD Primary Care Provider [phone] Radha Brock MD Primary Care Provider [phone] Encounter Details Date Type Department Care Team (Late Contact Info) Description 06/15/2017 Abstract [facility] Conversion [address] [place], [place] [address] , Generic ConversionMD Social History Tobacco Use Types Packs/Day Years Used Date Smoking Tobacco: Never Comments Unknown Sex and Gender Information Value Date Recorded Sex Assigned at Female 07/27/2024 3:06 PM FRAMING CARPENTER Legal Sex Female 9:21 PM CDT Gender Identity Not on file Sexual Orientation Not on file documented as of this encounter Plan of Treatment Upcoming Encounters Date Type Department Care Team (Late Contact Info) Description 06/08/2025 8:30 AM FRAMING CARPENTER Appointment [facility] ETHANOL OPERATIONS MANAGER Mammography [address] [place] [address] Radha Brock MD [address] [place] [address] documented as of this encounter Visit Diagnoses Not on filedocumented in this encounter Additional Health Concerns Infection Onset Date Last Indicated Resolved Time COVID-19 Rule Out 02/18/2021 02/18/2021 02/18/2021 4:07 PM CDT COVID-19 Rule Out 06/05/2021 06/05/2021 06/06/2021 8:02 AM FRAMING CARPENTER COVID-19 Rule Out 08/31/2021 08/31/2021 08/31/2021 1:35 AM FRAMING CARPENTER COVID-19 Rule Out 03/06/2022 03/06/2022 03/06/2022 9:42 PM CDT COVID-19 Rule Out 04/16/2022 04/16/2022 04/16/2022 5:15 AM CDT COVID-19 Rule Out 04/16/2022 04/16/2022 04/16/2022 10:56 PM CDT ESBL - Extended Spectrum Beta-lactamase 02/03/2023 02/03/2023 documented as of this encounter Care Teams Credit Support Counselor Relationship Specialty Start Date End Date Radha Brock MD [address] [place] [address] PCP - General FAMILY PRACTICE 12/31/18 09/29/22 Radha Brock MD [address] [place] [address] PCP - General FAMILY PRACTICE 09/30/22 documented as of this encounter
--- OUTSIDE RECORDS SUMMARY | 2025-01-19 12:12 | XMS_ITS | Encounter Summary ---
Author Organization [facility] Address [facility] [place] [address] Care Team Providers Care General Scrap Worker Name Role Phone Radha Brock MD Primary Care Provider [phone] Radha Brock MD Primary Care Provider [phone] Encounter Details Date Type Department Care Team (Late st Contact Info) Description 02/03/[address] [facility] [address] [place] [address] [facility] Social History Tobacco Use Types Packs/Day Years Used Date Smoking Tobacco: Never Smokeless Tobacco: Never Alcohol Use Standard Drinks/Week Comments Not Currently 0 (1 standard drink = 0.6 oz pur e alcohol) rare PHQ-2 Answer Date Recorded PHQ-2 Score - If the patient scores above 3, please move on to questions 3-9 6 01/14/2022 Comments No Sex and Gender Information Value Date Recorded Sex Assigned at Female 07/27/2024 3:06 PM SOFTWARE IMPLEMENTATION SPECIALIST Legal Sex Female 9:21 PM CDT Gender Identity Not on file Sexual Orientation Not on file COVID-19 Exposure Response Date Recorded In the last 10 days, have yo u been in contact with someone who was confirmed or suspected to have Coronavirus/COVID-19? No / Unsure 02/06/2022 1:01 PM CDT documented as of this encounter Functional Status * RETIRED Are you deaf or do you have serious difficulty hearing Answer Date of Assessment Author Status No 01/09/2022 8:22 AM CDT Activ e * RETIRED Are you blind or do you have serious difficulty seeing, even when wearing glasses? Answer Date of Assessment Author Status No 01/09/2022 8:22 AM CDT Activ e * Do you have serious difficulty walking or climbing stairs? Answer Date of Assessment Author Status No 01/09/2022 8:22 AM TENISHAT Daniella Dunn RN Active * Do you have difficulty dressing or bathing? Answer Date of Assessment Author Status No 01/09/2022 8:22 AM Daniella Paris RN Active * Because of a physical, mental, or emotional condition, do you have difficulty doing errands alone such as visiting a doctor's office or shopping? Answer Date of Assessment Author Status No 01/09/2022 8:22 AM Daniella Paris RN Active documented as of this encounter Mental Status * Because of a physical, mental, or emotional condition, do you have serious difficulty concentrating, remembering, or making decisions? Answer Entry Date Author Status No 01/09/2022 8:22 AM Daniella Paris RN Active documented in this encounter Plan of Treatment Upcoming Encounters Date Type Department Care Team (Late st Contact Info) Description 06/08/2025 8:30 AM SOFTWARE IMPLEMENTATION SPECIALIST Appointment [facility] SECURITY SUPPORT ANALYST Mammography [address] [place] [address] Radha Brock MD [address] [place] [address] documented as of this encounter Visit Diagnoses Not on filedocumented in this encounter Additional Health Concerns Infection Onset Date Last Indicated Resolved Time COVID-19 Rule Out 03/06/2022 03/06/2022 03/06/2022 9:42 PM CDT COVID-19 Rule Out 04/16/2022 04/16/2022 04/16/2022 5:15 AM CDT COVID-19 Rule Out 04/16/2022 04/16/2022 04/16/2022 10:56 PM CDT ESBL - Extended Spectrum Beta-lactamase 02/03/2023 02/03/2023 Assessment Noted Time PHQ-9 Depression Total Score: 19 022 11:03 AM CDT documented as of this encounter Care Teams General Scrap Worker Relationship Specialty Start Date End Date Radha Brock MD [address] [place] [address] PCP - General FAMILY PRACTICE 12/31/18 09/29/22 Radha Brock MD [address] [place] [address] PCP - General FAMILY PRACTICE 09/30/22 documented as of this encounter
--- OUTSIDE RECORDS SUMMARY | 2025-01-19 12:12 | XMS_ITS ---
Author Organization [facility] Address [address] [place] [phone] Care Team Providers Care Data Sme Name Role Phone Radha Brock MD Primary Care Provider [phone] Yasmany Esquivel MD Unavailable [phone] Mauricio Fairchild MD, Julian Hernandez Unavailable [phone] Dialysis Access Sites Type Status Location Placement [...] testing LIPID PANEL Routine 08/11/2023 12:17 PM PHARMACY AIDE HEPATITIS PANEL, ACUTE STAT 01/07/2023 7:40 AM [...] daily 4 Active blood-glucose meter,continuous ([employer] G7 Food And Beverage Attendant) misc USE DIRECTED FOR CHECKING SUGARS Active [...] (10/13/2022): Added automatically from request for surgery [id number] Dependence on renal dialysis 06/20/2022 Pulmonary hypertension [...] (10/17/2021): Added automatically from request for surgery [id number] Gastrointestinal hemorrhage with hematemesis 06/2022 Overview (10/24/2021): Added automatically from request for surgery [id number] Hypoxemia requiring supplemental oxygen 08/28/19 22 Pre-transplant evaluation for kidney transplant 04/09/2021 Overview (05/23/2021): Images from the original note were not included. Leidy Voss 1945 Referring Controller Repairer And Tester: Yasmany Esquivel Listing Date: Dialysis Info: Type: Time: (Not currently on dialysis) days Blood Type: There is no height or weight on file to calculate BMI. ALERTS Foundry Supervisor: Past Medical History: Diagnosis Date Arthropathy ankle [...] Procedure Laterality Date ANKLE SURGERY Right 10/15/2010 [place] CARDIAC STERNAL PRECAUTION 09/10/2011 x2 Cholecystectomy, Open 1988 Coronary Artery Bypass Graft 11/14/2011 4 bypass HAND SURGERY 1990 carpal Tunnel Hysterectomy 1985 total. Kirsten Singh [place] SHOULDER PROCEDURE/SURGERY 2019 Tonsillectomy 1951 Social History [...] Friends and Family: Not on file Attends Confucianism Services: Not on file Active Member of [...] did remove several times a day for yqief-ld-nlcntn exercises Follow-up in 3 weeks, likely discontinue [...] blurry vision which was worked up at [place]. No stroke was noted. Follow-up note 04/30/2018: [...] of her shoulder surgery. Office visit with TITLE I COORDINATOR 06/05/2020: She is here under the advice [...] also been advised to follow-up with her home service consultant. Prior to this recent illness she states she was able to lose 15 lb by eating healthier but she has now regained this weight. Currently she is drinking two 32 oz containers of water a day. Despite all this she states I feel fine. Office visit with TITLE I COORDINATOR 07/12/2020: after her last office visit she had an echo showing diastolic dysfunction. She had appt with Dr. Esquivel who increased her furosemide (her perception is this is a temporary increase), and she is also now under the care of a home service consultant Dr. 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 (CMS/HCC) (Primary) [...] sooner as clinically indicated Stephanie Julien MD, [facility] Pertinent Previous Committee Presentations: Labs: [...] Signed By: Stephanie Julien MD 2020-08-17 17:33:04 PHARMACY AIDE [facility]: 11/11/2011 C CXR: CT abd/pelvis non-contrast: Renal [...] artery disease of n ative artery of pokagon heart with stable angina pectoris 07/08/2017 Hyperlipidemia [...] Overview (10/09/2016): Essential hypertension Coronary arteriosclerosis in pokagon artery 04/25 Overview (10/09/2016): Coronary artery disease involving pokagon coronary artery of pokagon heart without angina pectoris Type 2 diabetes [...] 03/09/2012 Overview (10/15/2022): Coronary artery disease involving pokagon coronary artery of pokagon heart without angina pectoris Coronary artery disease involving pokagon coronary artery of pokagon heart without angina pectoris Social History Tobacco Use Types Packs/Day Years Used Date Smoking Tobacco: Never Smokeless Tobacco: Never Tobacco Cessation:Counseling Given: Not Answered Comments:exposed to heavy smoker - 25 years Alcohol Use Standard Drinks/Week Comments Yes 0 (1 standard drink = 0.6 oz pur e alcohol) [facility] Utilities Answer Date Recorded In [...] often do you attend chur ch or advent services? More than 4 times per year 03/09/2024 Do you belong to any clubs o r organizations such as rastafarian groups, unions, fraternal or athletic groups, or [...] and heating? Not hard at all 03/09/2024 [facility] [place] of Occupat ional Health - Occupational Stress [...] place to sleep or slept in a group home (including now)? No 01/07/2023 Housing Stability Vital Sign Answer Seth e Recorded In the last 12 months, was t here a time when you were not able to pay the mortgage or rent on time? No 03/09/2024 In the past 12 months, how m any times have you moved where you were living? 1 03/09/2024 At any time in the past 12 m [facility], were you homeless or living in a group home (including now)? 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 INDICATIONS: Follow up carotid stenosis. HISTORY: HTN. HLD. DM. CAD- [place] S/P CABG. DM. 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 [...] - 10/27/2024 [facility] [address] [place] [address] Carotid Duplex Ultrasound Report Patient Name: LEIDY VOSS L : 1945 (79y 3m) Study Date: 10/27/2024 12:51:16 PM Gender: F Environmental Health Nurse: Pily Read Jesse Location: [facility] Ref Provider: STEPHANIE JULIEN Quality: Adequate Order Provider: STEPHANIE JULIEN PROCEDURES: Carotid Report: Carotid duplex examination of the extracranial arterieswas performed using 2D, color and spectral Doppler. INDICATIONS: Follow up carotid stenosis. HISTORY: HTN. HLD. DM. CAD- [place] S/P CABG. DM. 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 [...] internal carotid artery disease is consistent with yxwmiznt40-66% stenosis. 2. The left internal carotid artery disease is consistent with qysxargf75-72% stenosis. ATTESTATION: I have reviewed and interpreted the pertinent images and measurements ofthis study. I attest to the conclusions in the final report that is provided above. Electronically Signed By: Naveen Martinez MD 10/27/2024 1:47:12 PM CDT us Stephanie Julien MD [facility] US PROCEDURES Final R esult * (ABNORMAL) [...] LAB BLOOD ORDERABLES Final Res ult [facility] [id number] Department [place] [address] * Lipid panel (08/11/2023 12:17 PM PHARMACY AIDE) SCRIBED Cholesterol, Total 139 <200 EXTERNAL LAB [...] GENERAL ORD ERABLES Final Result [facility] [address] [place] [address] from Last 3 Months or Most Recently Relevant to Health Maintenance
--- OUTSIDE RECORDS SUMMARY | 2025-01-19 12:12 | XMS_ITS | Encounter Summary ---
Author Organization [facility] System Address [facility] [place] [address] Care Team Providers Care Still Operator Brandy Name Role Phone Radha Brock MD Primary Care Provider [phone] Radha Brock MD Primary Care Provider [phone] Encounter Details Date Type Department Care Team (Late Contact Info) Description 12/26/2016 Abstract [facility] Conversion [address] [place] [address] , Generic ConversionMD Social History Tobacco Use Types Packs/Day Years Used Date Smoking Tobacco: Never Comments Unknown Sex and Gender Information Value Date Recorded Sex Assigned at Female 07/27/2024 3:06 PM PRODUCT BUILDER Legal Sex Female 9:21 PM CDT Gender Identity Not on file Sexual Orientation Not on file documented as of this encounter Plan of Treatment Upcoming Encounters Date Type Department Care Team (Late Contact Info) Description 06/08/2025 8:30 AM PRODUCT BUILDER Appointment [facility] MACHINE WELT BUTTER Mammography [address] [place] [address] Radha Brock MD [address] [place] [address] documented as of this encounter Visit Diagnoses Not on filedocumented in this encounter Additional Health Concerns Infection Onset Date Last Indicated Resolved Time COVID-19 Rule Out 02/18/2021 02/18/2021 02/18/2021 4:07 PM CDT COVID-19 Rule Out 06/05/2021 06/05/2021 06/06/2021 8:02 AM PRODUCT BUILDER COVID-19 Rule Out 08/31/2021 08/31/2021 08/31/2021 1:35 AM PRODUCT BUILDER COVID-19 Rule Out 03/06/2022 03/06/2022 03/06/2022 9:42 PM CDT COVID-19 Rule Out 04/16/2022 04/16/2022 04/16/2022 5:15 AM CDT COVID-19 Rule Out 04/16/2022 04/16/2022 04/16/2022 10:56 PM CDT ESBL - Extended Spectrum Beta-lactamase 02/03/2023 02/03/2023 documented as of this encounter Care Teams Still Operator Brandy Relationship Specialty Start Date End Date aRdha Brock MD [address] [place] [address] PCP - General FAMILY PRACTICE 12/31/18 09/29/22 Radha Brock MD [address] [place] [address] PCP - General FAMILY PRACTICE 09/30/22 documented as of this encounter
--- OUTSIDE RECORDS SUMMARY | 2025-01-19 12:12 | XMS_ITS | Encounter Summary ---
Author Organization [facility] Address [facility] [place] [address] Care Team Providers Care Landfill Attendant Name Role Phone Radha Brock MD Primary Care Provider [phone] Radha Brock MD Primary Care Provider [phone] Encounter Details Date Type Department Care Team (Late Contact Info) Description 06/15/2020 Therapy Plan [facility] Infusion Services [address] [place] [address] Lore Alfaro MD [address] [place] [phone] Social History Tobacco Use Types Packs/Day Years Used Date Smoking Tobacco: Never Smokeless Tobacco: Never Alcohol Use Standard Drinks/Week Comments Yes 0 (1 standard drink = 0.6 oz pur e alcohol) rare Comments No Sex and Gender Information Value Date Recorded Sex Assigned at Female 07/27/2024 3:06 PM KAITARA TARAKA Legal Sex Female 9:21 PM CDT Gender Identity Not on file Sexual Orientation Not on file COVID-19 Exposure Response Date Recorded In the last month, have you been in contact with someone who was confirmed or suspected to have Coronavirus / COVID-19? No / Unsure 06/15/2020 4:35 PM KAITARA TARAKA documented as of this encounter Plan of Treatment Upcoming Encounters Date Type Department Care Team (Late Contact Info) Description 06/08/2025 8:30 AM KAITARA TARAKA Appointment [facility] MANAGER BUSINESS DEVELOPMENT HOSPICE Mammography [address] [place] [address] Radha Brock MD [address], [place] [id number] documented as of this encounter Visit Diagnoses Not on filedocumented in this encounter Additional Health Concerns Infection Onset Date Last Indicated Resolved Time COVID-19 Rule Out 02/18/2021 02/18/2021 02/18/2021 4:07 PM CDT COVID-19 Rule Out 06/05/2021 06/05/2021 06/06/2021 8:02 AM KAITARA TARAKA COVID-19 Rule Out 08/31/2021 08/31/2021 08/31/2021 1:35 AM KAITARA TARAKA COVID-19 Rule Out 03/06/2022 03/06/2022 03/06/2022 9:42 PM CDT COVID-19 Rule Out 04/16/2022 04/16/2022 04/16/2022 5:15 AM CDT COVID-19 Rule Out 04/16/2022 04/16/2022 04/16/2022 10:56 PM CDT ESBL - Extended Spectrum Beta-lactamase 02/03/2023 02/03/2023 documented as of this encounter Care Teams Landfill Attendant Relationship Specialty Start Date End Date Radha Brock MD [address] [place] [address] PCP - General FAMILY PRACTICE 12/31/18 09/29/22 Radha Brock MD [address] [place] [address] PCP - General FAMILY PRACTICE 09/30/22 documented as of this encounter
--- OUTSIDE RECORDS SUMMARY | 2025-01-19 12:12 | XMS_ITS | Clinical Summary ---
Author Organization [facility] Address [address] [facility] [place] [address] Care Team Providers Care Horticultural Farm Manager Name Role Phone Radha Brock MD Primary Care Provider [phone] Source Comments [facility],non-owned Affiliates and Associated Physician Practices is amultiple site organization consisting of ambulatory clinics and hospital sitesin [place], [place], [place] and [place]. This disclosure is being madepursuant to the Care Everywhere program and may not contain all information available regarding this patient. Last updated 18.[facility] [employer] Allergies Active Allergy Reactions Criticality Noted Date [...] Date Cerebrovascular accident (CVA) due to other [facility] anism 12/07/2023 Hypoxemia requiring supplemental oxygen 08/28/19 22 Pre-transplant evaluation for kidney transplant 04/09/2021 Overview (04/11/2021): Images from the original note were not included. Leidy Voss 1945 Referring Client Support Manager: Yasmany Esquivel Listing Date: Dialysis Info: Type: Time: (Not currently on dialysis) days Blood Type: There is no height or weight on file to calculate BMI. ALERTS Telegraph Operator: Past Medical History: Diagnosis Date Arthropathy ankle [...] Procedure Laterality Date ANKLE SURGERY Right 10/15/2010 [place] CARDIAC STERNAL PRECAUTION 09/10/2011 x2 Cholecystectomy, Open 1988 Coronary Artery Bypass Graft 11/14/2011 4 bypass HAND SURGERY 1990 carpal Tunnel Hysterectomy 1985 total. Kirsten Hatch [facility] SHOULDER PROCEDURE/SURGERY 2019 Tonsillectomy 195 Social [...] did remove several times a day for kqseu-di-ponlmc exercises Follow-up in 3 weeks, likely discontinue [...] blurry vision which was worked up at [place]. No stroke was noted. Follow-up note 04/30/2018: [...] of her shoulder surgery. Office visit with FRAMEMAN 06/05/2020: She is here under the advice [...] also been advised to follow-up with her client service coordinator. Prior to this recent illness she states she was able to lose 15 lb by eating healthier but she has now regained this weight. Currently she is drinking two 32 oz containers of water a day. Despite all this she states I feel fine. Office visit with FRAMEMAN 07/12/2020: after her last office visit she had an echo showing diastolic dysfunction. She had appt with Dr. Esquivel who increased her furosemide (her perception is this is a temporary increase), and she is also now under the care of a client service coordinator Dr. Alfaro at [facility], and has had 2 [...] for this visit: Coronary artery disease of [place] artery of [place] heart with stable angina pectoris (CMS/HCC) (Primary) [...] sooner as clinically indicated Marcio Julien MD, [facility] Pertinent Previous Committee Presentations: Labs: PTH: A1c: [...] Signed By: Marcio Julien MD 2020-08-17 17:33:04 EDGE TRIMMER [facility]: 11/11/2011 C CXR: CT abd/pelvis [...] Recorded Patient Health Questionnaire-2 Score 0 12/09/2023 [facility] [place] of Occupat ional Health - Occupational Stress [...] place to sleep or slept in a halfway (including now)? No 12/08/2023 Comments Unknown Sex and Gender Information Value Date Recorded Sex Assigned at Not on file Legal Sex Female 5:51 AM EDGE TRIMMER Gender Identity Not on file Sexual Orientation [...] this topic Medical Devices Implanted Type Area Sales Representatives Device Identifier Shelf Expiration Date Model / Serial / Lot Wire K .045in X 5.5in Implanted:Qty: 1 on 08/28/2021 by Óscar Fleming MD at [facility] Right: [employer] 0 / / Insurance [facility] MEDICARE [facility] MEDICARE [facility] Advance Directives * Full Code (Latest Code Status on File) Date Activated Date Inactivated Comments 12/08/2023 10:50 AM 12/09/2023 3:26 PM * Full Code Date Activated Date Inactivated Comments 08/28/2021 7:41 PM 08/29/2021 5:15 PM Care Teams Horticultural Farm Manager Relationship Specialty Start Date End Date Radha Brock MD [address] [place] [phone] PCP - General Family Medicine 03/03/14
--- OUTSIDE RECORDS SUMMARY | 2025-01-19 12:12 | XMS_ITS | Clinical Summary ---
Author Organization [employer] [address] [place] [address] [address] [address] [place] [address] Care Team Providers Care Pre Sales Systems Engineer Name Role Phone Radha Brock MD Primary Care Provider [phone] Allergies Active Allergy Reactions Criticality Noted Date [...] on file Legal Sex Female 3:02 AM SUPERVISOR [employer]S Gender Identity Not on file Sexual Orientation [...] [address]25 Insurance [address]ARE PART A AND B [facility] SUPP Care Teams Pre Sales Systems Engineer Relationship Specialty Start Date End Date Radha Brcok MD [address] [place] [phone] PCP - General Family Practice 03/08/20
--- OUTSIDE RECORDS SUMMARY | 2025-01-19 12:12 | XMS_ITS | Encounter Summary ---
Author Organization [facility] Address [facility] [place] [address] Care Team Providers Care Paper Deliverer Name Role Phone Radha Brock MD Primary Care Provider [phone] Radha Brock MD Primary Care Provider [phone] Encounter Details Date Type Department Care Team (Late Contact Info) Description 01/27/1988 Abstract [facility] [address] [place] [address] , Generic ConversionMD Social History Tobacco Use Types Packs/Day Years Used Date Smoking Tobacco: Never Assessed Comments Unknown Sex and Gender Information Value Date Recorded Sex Assigned at Female 07/27/2024 3:06 PM TOOL AND DIE ASSEMBLER Legal Sex Female 9:21 PM CDT Gender Identity Not on file Sexual Orientation Not on file documented as of this encounter Plan of Treatment Upcoming Encounters Date Type Department Care Team (Late Contact Info) Description 06/08/2025 8:30 AM TOOL AND DIE ASSEMBLER Appointment [facility] MUD PLANT OPERATOR Mammography [address] [place] [address] Radha Brock MD [address] [place] [address] documented as of this encounter Visit Diagnoses Not on filedocumented in this encounter Additional Health Concerns Infection Onset Date Last Indicated Resolved Time COVID-19 Rule Out 02/18/2021 02/18/2021 02/18/2021 4:07 PM CDT COVID-19 Rule Out 06/05/2021 06/05/2021 06/06/2021 8:02 AM TOOL AND DIE ASSEMBLER COVID-19 Rule Out 08/31/2021 08/31/2021 08/31/2021 1:35 AM TOOL AND DIE ASSEMBLER COVID-19 Rule Out 03/06/2022 03/06/2022 03/06/2022 9:42 PM CDT COVID-19 Rule Out 04/16/2022 04/16/2022 04/16/2022 5:15 AM CDT COVID-19 Rule Out 04/16/2022 04/16/2022 04/16/2022 10:56 PM CDT ESBL - Extended Spectrum Beta-lactamase 02/03/2023 02/03/2023 documented as of this encounter Care Teams Paper Deliverer Relationship Specialty Start Date End Date Radha Brock MD [address] [place] [address] PCP - General FAMILY PRACTICE 12/31/18 09/29/22 Radha Brock MD [address] [place] [address] PCP - General FAMILY PRACTICE 09/30/22 documented as of this encounter
--- OUTSIDE RECORDS SUMMARY | 2025-01-19 12:12 | XMS_ITS | Clinical Summary ---
Author Organization [facility] Address [address] [place] [id number] Care Team Providers Care Gate Clerk Name Role Phone Radha Brock MD Primary Care Provider [phone] Yasmany Esquivel MD Unavailable [phone] Mauricio Fairchild MD, Julian Hernandez Unavailable [phone] Allergies Active Allergy Reactions Criticality Noted Date [...] daily 4 Active blood-glucose meter,continuous ([employer]excom G7 Tooling Inspector) misc USE DIRECTED FOR CHECKING SUGARS Active [...] (10/13/2022): Added automatically from request for surgery [id number] Dependence on renal dialysis 06/20/2022 Pulmonary hypertension [...] (10/17/2021): Added automatically from request for surgery [id number] Gastrointestinal hemorrhage with hematemesis 06/2022 Overview (10/24/2021): Added automatically from request for surgery [id number] Hypoxemia requiring supplemental oxygen 08/28/19 22 Pre-transplant evaluation for kidney transplant 04/09/2021 Overview (05/23/2021): Images from the original note were not included. Leidy Voss 1945 Referring Horse Identifier: Yasmany Esquivel Listing Date: Dialysis Info: Type: Time: (Not currently on dialysis) days Blood Type: There is no height or weight on file to calculate BMI. ALERTS Grinder Operator: Past Medical History: Diagnosis Date Arthropathy [...] Procedure Laterality Date ANKLE SURGERY Right 10/15/2010 [facility] CARDIAC STERNAL PRECAUTION 09/10/2011 x2 Cholecystectomy, Open 1988 Coronary Artery Bypass Graft 11/14/2011 4 bypass HAND SURGERY 1990 carpal Tunnel Hysterectomy 1985 total. Kirsten Hatch [facility] SHOULDER PROCEDURE/SURGERY 2019 Tonsillectomy 195 [...] did remove several times a day for wzsfw-[id number]-wkcnsw exercises Follow-up in 3 weeks, likely discontinue [...] blurry vision which was worked up at [facility]. No stroke was noted. Follow-up note 04/30/2018: [...] of her shoulder surgery. Office visit with ADVERTISING ASSOCIATE 06/05/2020: She is here under the advice [...] also been advised to follow-up with her risk officer. Prior to this recent illness she states she was able to lose 15 lb by eating healthier but she has now regained this weight. Currently she is drinking two 32 oz containers of water a day. Despite all this she states I feel fine. Office visit with ADVERTISING ASSOCIATE 07/12/2020: after her last office visit she had an echo showing diastolic dysfunction. She had appt with Dr. Esquivel who increased her furosemide (her perception is this is a temporary increase), and she is also now under the care of a risk officer Dr. Alfaro at [facility], and has had 2 units [...] for this visit: Coronary artery disease of [place] artery of [place] heart with stable angina pectoris (CMS/HCC) (Primary) [...] Signed By: Stephanie Julien MD 2020-08-17 17:33:04 PHOTOENGRAVING RETOUCHER [facility]: 11/11/2011 C CXR: CT abd/pelvis non-contrast: [...] artery disease of n ative artery of [place] heart with stable angina pectoris 07/08/2017 Hyperlipidemia [...] Overview (10/09/2016): Essential hypertension Coronary arteriosclerosis in [place] artery 04/25 Overview (10/09/2016): Coronary artery disease involving [place] coronary artery of [place] heart without angina pectoris Type 2 diabetes [...] 03/09/2012 Overview (10/15/2022): Coronary artery disease involving [place] coronary artery of [place] heart without angina pectoris Coronary artery disease involving [place] coronary artery of [place] heart without angina pectoris Encounters Date Type Department Care Team Description 10/27/2024 1:00 PM CDT Ancillary Procedure [facility] Vascular and Vein Surgery at [address] [place] [address] Bilateral carotid artery stenosis 10/27/2024 10:45 AM CDT Office Visit [facility] Cardiology [address] [place] [phone] Stephanie Julien MD Coronary artery disease of [place] artery of [place] heart with stable angina pectoris (Primary Dx); Bilateral carotid artery stenosis; Pulmonary hypertension associated with end stage renal disease on dialysis (HCC); Peripheral circulatory disorder associated with type 2 diabetes mellitus (HCC) 10/27/2024 Results Follow-Up [facility] Cardiology [address] [place] [phone] Stephanie Julien MD US Carotids Duplex Bilateral 10/27/2024 Orders Only [facility] Cardiology [address] [place] [phone] Provider, MD Burke from Last 3 Months [...] 2010 Rt ankle replac ement Myocardial infarction ([facility]) Myoc ardial infarction Hx Other Medical 2012 Stent placed Hx Other Medical 2012 bypasses X 4 Chronic kidney disease 2012 Sleep apnea Type 2 diabetes mellitus ([facility]) Dialysis patient CHF (congestive heart failure) ([facility]) ESRD (end stage renal disease) ([facility]) Closed displaced oblique fra cture of shaft [...] drink = 0.6 oz pur e alcohol) [facility] Utilities Answer Date Recorded In the [...] How often do you attend chur or moravian services? More than 4 times per year 03/09/2024 Do you belong to any clubs o r organizations such as mu-ism groups, unions, fraternal or athletic groups, or [...] and heating? Not hard at all 03/09/2024 [facility] of Occupat ional Health - Occupational Stress [...] place to sleep or slept in a usp (including now)? No 01/07/2023 Housing Stability Vital Sign Answer Seth e Recorded In the last 12 months, was t here a time when you were not able to pay the mortgage or rent on time? No 03/09/2024 In the past 12 months, how m any times have you moved where you were living? 1 03/09/2024 At any time in the past 12 m [facility], were you homeless or living in a usp (including now)? 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 Not on file Not on file Not [...] history exists Medical Devices Implanted Type Area Intellectual Property Lawyer Device Identifier Shelf Expiration Date Model / Serial / Lot [employer] Vascade Mvp 6-12fr Venous Closure [id number] - [id number] Implanted:Qty: 1 on 11/14/2022 by Jarrett Mayo MD at [facility] Collagen Right: Femoral Vein [employer] 06/19/2024 800-612C- 10U / / [id number] [employer] Vascade Mvp 6-12fr Venous Closure [id number] - [id number] Implanted:Qty: 1 on 11/14/2022 by Jarrett Mayo MD at [facility] Collagen Left: Femoral Vein [employer] 06/19/2024 800-612C- 10U / / [id number] [employer] Device Closure Vascade Od5 Fr Femoral Artery [id number] - [id number] Implanted:Qty: 1 on 11/14/2022 by Jarrett Mayo MD at [facility] Collagen Right: Femoral Vein [employer] 07/28/2024 [id number] -05U / / [id number] [employer] Device Vascular Closure Femoral Artery Bioabsorbable Dual Method Vascade 6-7fr Collagen [id number] - [id number] Implanted:Qty: 1 on 11/14/2022 by Jarrett Mayo MD at [facility] Collagen Left: Femoral Vein [employer] 08/04/2024 700-580I- 05U / / [id number] Medtronic [employer] X [id number] Resolute Garth 3mm 2.1-2.7fr 34mm 140cm Rapid Exchange Radiopaque - [id number] Implanted:Qty: 1 on 10/18/2021 by Sha Wu MD at [facility] Medtronic Inc 05/30/2022 [id number] / / Synthes Lcp 12mm [id number] .7mm 5 Hole Collar 1/3 Tubular Plate Bone 241.351 - [id number] Implanted:Qty: 1 on 01/08/2023 by Julian Martínez Jr., MD at [facility] Right: Fibula Synthes I 241.351 / / Synthes 3.5mm 6mm 16mm 2.5mm Self Tap Small Hexagonal Socket Low Profile 204.816 - [id number] Implanted:Qty: 4 on 01/08/2023 by Julian Martínez Jr., MD at [facility] Right: Fibula Synthes I 204.816 / / Explanted Type Area Intellectual Property Lawyer Device Identifier Shelf Expiration Date Model / Serial / Lot Synthes Lcp Combi 187mm 10 Hole Low Profile Round Edge Tibial Right 02.112.522 - [id number] Implanted:Qty: 1 on 01/08/2023 by Julian Martínez Jr., MD at [facility] Explanted:Qty: 1 on 11/13/2023 by Julian Martínez Jr., MD at [facility] Right: Tibia Synthes I 02.112.522 / / Synthes 3.5mm 6mm 42mm 2.5mm Self Tap Small Hexagonal Socket Low Profile 204.842 - [id number] Implanted:Qty: 1 on 01/08/2023 by Julian Martínez Jr., MD at [facility] Explanted:Qty: 1 on 11/13/2023 by Julian Martínez Jr., MD at [facility] Right: Tibia Synthes I 204.842 / / Synthes 3.5mm 2.9mm 10mm Self Tap Lock Stardrive Conical Head T15 Full 212.101 - [id number] Implanted:Qty: 1 on 01/08/2023 by Julian Martínez Jr., MD at [facility] Explanted:Qty: 1 on 11/13/2023 by Julian Martínez Jr., MD at [facility] Right: Tibia Synthes I 212.101 / / Synthes 3.5mm 2.9mm 45mm Self Tap Lock Stardrive Conical Head T15 Full 212.119 - [id number] Implanted:Qty: 1 on 01/08/2023 by Julian Martínez Jr., MD at [facility] Explanted:Qty: 1 on 11/13/2023 by Julian Martínez Jr., MD at [facility] Right: Tibia Synthes I 212.119 / / Synthes 3.5mm 6mm 20mm 2.5mm Self Tap Small Hexagonal Socket Low Profile 204.820 - [id number] Implanted:Qty: 1 on 01/08/2023 by Julian Martínez Jr., MD at [facility] Explanted:Qty: 1 on 11/13/2023 by Julian Martínez Jr., MD at [facility] Right: Tibia Synthes I 204.820 / / Synthes 3.5mm 2.9mm 40mm Self Tap Lock Stardrive Conical Head T15 Full 212.117 - [id number] Implanted:Qty: 1 on 01/08/2023 by Julian Martínez Jr., MD at [facility] Explanted:Qty: 1 on 11/13/2023 by Julian Martínez Jr., MD at [facility] Right: Tibia Synthes I 212.117 / / Synthes 3.5mm 2.9mm 24mm Self Tap Lock Stardrive Conical Head Pelvis T15 212.108 - [id number] Implanted:Qty: 1 on 01/08/2023 by Julian Martínez Jr., MD at [facility] Explanted:Qty: 1 on 11/13/2023 by Julian Martínez Jr., MD at [facility] Right: Tibia Synthes I 212.108 / / Synthes 3.5mm 2.9mm 20mm Self Tap Lock Stardrive Conical Head T15 Full 212.106 - [id number] Implanted:Qty: 2 on 01/08/2023 by Julian Martínez Jr., MD at [facility] Explanted:Qty: 2 on 11/13/2023 by Julian Martínez Jr., MD at [facility] Right: Tibia Synthes I 212.106 / / Synthes 3.5mm 6mm 40mm 2.5mm Self Tap Small Hexagonal Socket Low Profile 204.840 - [id number] Implanted:Qty: 1 on 11/13/2023 by Julian Martínez Jr., MD at [facility] Explanted:Qty: 1 on 03/08/2024 by Julian Martínez Jr., MD at [facility] Right: Tibia Synthes I 204.840 / / Synthes 3.5mm 6mm 30mm 2.5mm Self Tap Small Hexagonal Socket Low Profile 204.830 - [id number] Implanted:Qty: 1 on 11/13/2023 by Julian Martínez Jr., MD at [facility] Explanted:Qty: 1 on 03/08/2024 by Julian Martínez Jr., MD at [facility] Right: Tibia Synthes I 204.830 / / Synthes 3.5mm 6mm 36mm 2.5mm Self Tap Small Hexagonal Socket Low Profile 204.836 - [id number] Implanted:Qty: 1 on 11/13/2023 by Julian Martínez Jr., MD at [facility] Explanted:Qty: 1 on 03/08/2024 by Julian Martínez Jr., MD at [facility] Right: Tibia Synthes I 204.836 / / Synthes 3.5mm 2.9mm 40mm Self Tap Lock Stardrive Conical Head T15 Full 212.117 - [id number] Implanted:Qty: 2 on 11/13/2023 by Julian Martínez Jr., MD at [facility] Explanted:Qty: 2 on 03/08/2024 by Julian Martínez Jr., MD at [facility] Right: Tibia Synthes I 212.117 / / Synthes Plate Bone Compression Locking Low Profile 10 Hole Right Lcp [id number] Ss 02.112.522s - [id number] Implanted:Qty: 1 on 11/13/2023 by Julian Martínez Jr., MD at [facility] Explanted:Qty: 1 on 03/08/2024 by Julian Martínez Jr., MD at [facility] Right: Tibia Synthes 02.112.522S / / Synthes 3.5mm 2.9mm 24mm Self Tap Lock Stardrive Conical Head Pelvis T15 212.108 - [id number] Implanted:Qty: 3 on 11/13/2023 by Julian Martínez Jr., MD at [facility] Explanted:Qty: 3 on 03/08/2024 by Julian Martínez Jr., MD at [facility] Right: Tibia Synthes I 212.108 / / Synthes 3.5mm 6mm 24mm 2.5mm Self Tap Small Hexagonal Socket Low Profile 204.824 - [id number] Implanted:Qty: 1 on 11/13/2023 by Julian Martínez Jr., MD at [facility] Explanted:Qty: 1 on 03/08/2024 by Julian Martínez Jr., MD at [facility] Right: Tibia Synthes I 204.824 / / Procedures Procedure Name Priority Date/Time Associated Diagnosis Comments US CAROTIDS DUPLEX BILATERAL Schedule Routine, Read Routine (OP Routine) 10/27/2024 1:19 PM CDT Bilateral carotid artery stenosis EGFR Routine 03/01/2024 12:01 PM CDT Pre-op testing LIPID PANEL Routine 08/11/2023 12:17 PM PHOTOENGRAVING RETOUCHER HEPATITIS PANEL, ACUTE STAT 01/07/2023 7:40 AM CDT from Last 3 Months or Most Recently Relevant to Health Maintenance Results * US Carotids Duplex Bilateral (10/27/2024 1:19 PM CDT) Anatomical Region Laterality Modality Vascular Bilateral Ultrasound 10/27/2024 12:5 1 PM CDT Narrative 10/27/2024 1:54 PM CDT Vascular & Vein Surgery [address] [place] [address] Carotid Duplex Ultrasound Report Patient Name: LEIDY VOSS L : 1945 (79y 3m) Study Date: 10/27/2024 12:51:16 PM Gender: F Therapist Speech: Pily Read RVJesse Location: [facility] Ref Provider: STEPHANIE JULIEN Quality: Adequate Order Provider: STEPHANIE JULIEN PROCEDURES: Carotid Report: Carotid duplex examination of the extracranial arteries was performed using 2D, color and spectral Doppler. INDICATIONS: Follow up carotid stenosis. HISTORY: HTN. HLD. DM. CAD- AK S/P CABG. DM. 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 [...] MD - 10/27/2024 Vascular & Vein Surgery [facility] [place] [address] Carotid Duplex Ultrasound Report Patient Name: LEIDY VOSS L : 1945 (79y 3m) Study Date: 10/27/2024 12:51:16 PM Gender: F Therapist Speech: Pily Read RVT Location: [facility] Ref Provider: STEPHANIE JULIEN Quality: Adequate Order Provider: STEPHANIE JULIEN PROCEDURES: Carotid Report: Carotid duplex examination of the extracranial arterieswas performed using 2D, color and spectral Doppler. INDICATIONS: Follow up carotid stenosis. HISTORY: HTN. HLD. DM. CAD- [place] S/P CABG. DM. 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 [...] internal carotid artery disease is consistent with okasjjlo79-14% stenosis. 2. The left internal carotid artery disease is consistent with ipgnbsjw45-39% stenosis. ATTESTATION: I have reviewed and interpreted [...] CDT 03/01/2024 12:01 PM CDT Angelia Clayton ADVERTISING ASSOCIATE LAB BLOOD ORDERABLES Final Res ult [facility] [id number] Department [place] [address] * Lipid panel (08/11/2023 12:17 PM PHOTOENGRAVING RETOUCHER) SCRIBED Cholesterol, Total 139 <200 EXTERNAL LAB [...] - GENERAL ORD ERABLES Final Result [facility] [id number] Department [place] [address] from Last 3 Months or Most Recently Relevant to Health Maintenance Insurance MEDICARE [facility] MEDICARE [facility] MEDICARE SUPPLEMENT Advance Directives For more information, please contact: [phone] Documents on File Type Date Recorded Patient Loan Supervisor Expl anation ADVANCE DIRECTIVE 11/04/2021 9:22 AM POWER OF IMAGING ADMINISTRATOR-MEDICAL * Full Code (Latest Code Status on [...] 9:39 AM 11/03/2021 5:05 PM Care Teams Gate Clerk Relationship Specialty Start Date End Date Radha Brock MD [address] [place] [address] PCP - General 10/03/16 Yasmany Esquievl MD [address] [place] [address] Referring Physician Nephrology 11/03/21 [place] [id number] [address] Surgeon Orthopedic Surgery 01/12/23
--- OUTSIDE RECORDS SUMMARY | 2025-01-19 12:12 | XMS_ITS | Encounter Summary ---
Author Organization [facility] Address [facility] [place] [address] Care Team Providers Care Inseam Trimmer Name Role Phone Radha Brock MD Primary Care Provider [phone] Radha Brock MD Primary Care Provider [phone] Encounter Details Date Type Department Care Team (Late Contact Info) Description 12/29/2017 Abstract [facility] [address] [place] [address] , Generic ConversionMD Social History Tobacco Use Types Packs/Day Years Used Date Smoking Tobacco: Never Comments Unknown Sex and Gender Information Value Date Recorded Sex Assigned at Female 07/27/2024 3:06 PM RESIDENTIAL PROGRAM WORKER Legal Sex Female 9:21 PM CDT Gender Identity Not on file Sexual Orientation Not on file documented as of this encounter Plan of Treatment Upcoming Encounters Date Type Department Care Team (Late Contact Info) Description 06/08/2025 8:30 AM RESIDENTIAL PROGRAM WORKER Appointment [facility] RAW STOCK MACHINE FEEDER Mammography [address] [place] [address] Radha Brock MD [address] [place] [id number] documented as of this encounter Visit Diagnoses Not on filedocumented in this encounter Additional Health Concerns Infection Onset Date Last Indicated Resolved Time COVID-19 Rule Out 02/18/2021 02/18/2021 02/18/2021 4:07 PM CDT COVID-19 Rule Out 06/05/2021 06/05/2021 06/06/2021 8:02 AM RESIDENTIAL PROGRAM WORKER COVID-19 Rule Out 08/31/2021 08/31/2021 08/31/2021 1:35 AM RESIDENTIAL PROGRAM WORKER COVID-19 Rule Out 03/06/2022 03/06/2022 03/06/2022 9:42 PM CDT COVID-19 Rule Out 04/16/2022 04/16/2022 04/16/2022 5:15 AM CDT COVID-19 Rule Out 04/16/2022 04/16/2022 04/16/2022 10:56 PM CDT ESBL - Extended Spectrum Beta-lactamase 02/03/2023 02/03/2023 documented as of this encounter Care Teams Inseam Trimmer Relationship Specialty Start Date End Date Radha Brock MD [address] [place] [address] PCP - General FAMILY PRACTICE 12/31/18 09/29/22 Radha Brock MD [address] [place] [address] PCP - General FAMILY PRACTICE 09/30/22 documented as of this encounter
--- OUTSIDE RECORDS SUMMARY | 2025-01-19 12:12 | XMS_ITS | Referral Summary ---
Author Organization [facility] Address [address] [place] [id number] Care Team Providers Care Bicycle Assembler Name Role Phone Radha Brock MD Primary Care Provider [phone] Yasmany Esquivel MD Unavailable [phone] Mauricio Fairchild MD, Julian Brewerwin Unavailable [phone] Encounters Date Type Department Care Team Description 10/27/2024 Results Follow-Up [facility] [address] [place] [address] [address] [place] [address] Stephanie Julien MD US Carotids Duplex Bilateral 10/27/2024 Orders Only [facility] [address] [place] [address] [address] [place] [address] ProviderBurke MD 10/27/2024 1:00 PM CDT Ancillary Procedure [facility] at [address] [place] [id number] Bilateral carotid artery stenosis 10/27/2024 10:45 AM CDT Office Visit [facility] [address] [place] [address] [address] [place] [address] Stephanie Julien MD 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 (Primary Dx); Bilateral carotid artery stenosis; Pulmonary hypertension associated with end stage renal disease on dialysis (HCC); Peripheral circulatory disorder associated with type 2 diabetes mellitus ([facility]) from Last 3 Months Allergies Active Allergy [...] tabletIndication s:NSTEMI (non-ST elevated myocardial infarction) ([facility]) Place 1 tablet (0.4 mg total) under [...] daily 4 Active blood-glucose meter,continuous (Dexcom G7 Therapeutic Radiologist) [facility] [place] [place] USE DIRECTED FOR CHECKING SUGARS Active blood-glucose [...] (10/13/2022): Added automatically from request for surgery [id number] Dependence on renal dialysis 06/20/2022 Pulmonary hypertension [...] (10/17/2021): Added automatically from request for surgery [id number] Gastrointestinal hemorrhage with hematemesis 06/2022 Overview (10/24/2021): Added automatically from request for surgery [id number] Hypoxemia requiring supplemental oxygen 08/28/19 22 Pre-transplant evaluation for kidney transplant 04/09/2021 Overview (05/23/2021): Images from the original note were not included. Leidy Voss 1945 Referring Hand Sizer: Yasmany Esquivel Listing Date: Dialysis Info: Type: Time: (Not currently on dialysis) days Blood Type: There is no height or weight on file to calculate BMI. ALERTS Orthodontic Treatment Coordinator: Past Medical History: Diagnosis Date Arthropathy ankle [...] Procedure Laterality Date ANKLE SURGERY Right 10/15/2010 [place] CARDIAC STERNAL PRECAUTION 09/10/2011 x2 Cholecystectomy, Open 1988 Coronary Artery Bypass Graft 11/14/2011 4 bypass HAND SURGERY 1990 carpal Tunnel Hysterectomy 1985 total. Kirsten Hatch [facility] SHOULDER PROCEDURE/SURGERY 2019 Tonsillectomy 195 Social [...] Friends and Family: Not on file Attends [employer] Services: Not on file Active Member of [...] did remove several times a day for ecvpz-ik-amqhem exercises Follow-up in 3 weeks, likely discontinue [...] blurry vision which was worked up at [facility]. No stroke was noted. Follow-up note 04/30/2018: [...] of her shoulder surgery. Office visit with SUPPORT SERVICES COORDINATOR 06/05/2020: She is here under the [...] also been advised to follow-up with her eyelet punch operator. Prior to this recent illness she states she was able to lose 15 lb by eating healthier but she has now regained this weight. Currently she is drinking two 32 oz containers of water a day. Despite all this she states I feel fine. Office visit with SUPPORT SERVICES COORDINATOR 07/12/2020: after her last office visit she had an echo showing diastolic dysfunction. She had appt with Dr. Esquivel who increased her furosemide (her perception is this is a temporary increase), and she is also now under the care of a eyelet punch operator Dr. 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 (CMS/HCC) (Primary) [...] sooner as clinically indicated Stephanie Julien MD, [facility] Pertinent Previous Committee Presentations: Labs: PTH: [...] Signed By: Stephanie Julien MD 2020-08-17 17:33:04 LINEN WORKER [facility]: 11/11/2011 C CXR: CT abd/pelvis non-contrast: [...] artery disease of n ative artery of enterprise heart with stable angina pectoris 07/08/2017 Hyperlipidemia [...] Overview (10/09/2016): Essential hypertension Coronary arteriosclerosis in enterprise artery 04/25 Overview (10/09/2016): Coronary artery disease involving enterprise coronary artery of enterprise heart without angina pectoris Type 2 diabetes [...] 03/09/2012 Overview (10/15/2022): Coronary artery disease involving enterprise coronary artery of enterprise heart without angina pectoris Coronary artery disease involving enterprise coronary artery of enterprise heart without angina pectoris Social History Tobacco Use Types Packs/Day Years Used Date Smoking Tobacco: Never Smokeless Tobacco: Never Tobacco Cessation:Counseling Given: Not Answered Comments:exposed to heavy smoker - 25 years Alcohol Use Standard Drinks/Week Comments Yes 0 (1 standard drink = 0.6 oz pur e alcohol) [facility] Utilities Answer Date Recorded In the [...] often do you attend chur ch or evangelical services? More than 4 times per year 03/09/2024 Do you belong to any clubs o r organizations such as jainism groups, unions, fraternal or athletic groups, or [...] and heating? Not hard at all 03/09/2024 [facility] of Occupat ional Health - Occupational Stress [...] place to sleep or slept in a mcc (including now)? No 01/07/2023 Housing Stability Vital [...] time in the past 12 m [facility], were you homeless or living in a mcc (including now)? 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 Not on file Not on file Not [...] on file Medical Devices Implanted Type Area City Collector Device Identifier Shelf Expiration Date Model / Serial / Lot [employer] Vascade Mvp 6-12fr Venous Closure [id number] - [id number] Implanted:Qty: 1 on 11/14/2022 by Jarrett Mayo MD at [facility] [place] Right: Femoral Vein [employer] 06/19/2024 800-612C- 10U / / [id number] [employer] Vascade Mvp 6-12fr Venous Closure [id number] - [id number] Implanted:Qty: 1 on 11/14/2022 by Jarrett Mayo MD at [facility] Coll[place] Left: Femoral Vein [employer] 06/19/2024 800-612C- 10U / / [id number] [employer] Device Closure Vascade Od5 Fr Femoral Artery [id number] - [id number] Implanted:Qty: 1 on 11/14/2022 by Jarrett Mayo MD at [facility] Coll[place] Right: Femoral Vein [employer] 07/28/2024 700-500DX -05U / / [id number] [employer] Device Vascular Closure Femoral Artery Bioabsorbable Dual Method Vascade 6-7fr [place] [id number] - [id number] Implanted:Qty: 1 on 11/14/2022 by Jarrett Mayo MD at [facility] Coll[place] Left: Femoral Vein [employer] 08/04/2024 700-580I- 05U / / [id number] Medtronic [employer] X [id number] Resolute Garth 3mm 2.1-2.7fr 34mm 140cm Rapid Exchange Radiopaque - [id number] Implanted:Qty: 1 on 10/18/2021 by Sha Wu MD at [facility] Medtronic Inc 05/30/2022 [id number] / / Synthes Lcp 12mm 36i4n3gm .7mm 5 Hole Collar / Tubular Plate Bone 241.351 - [id number] Implanted:Qty: 1 on 01/08/2023 by Julian Martínez Jr., MD at [facility] Right: Fibula Synthes I 241.351 / / Synthes 3.5mm 6mm 16mm 2.5mm Self Tap Small Hexagonal Socket Low Profile 204.816 - [id number] Implanted:Qty: 4 on 01/08/2023 by Julian Martínez Jr., MD at [facility] Right: Fibula Synthes I 204.816 / / Explanted Type Area City Collector Device Identifier Shelf Expiration Date Model / Serial / Lot Synthes Lcp Combi 187mm 10 Hole Low Profile Round Edge Tibial Right 02.112.522 - [id number] Implanted:Qty: 1 on 01/08/2023 by Julian Martínez Jr., MD at [facility] Explanted:Qty: 1 on 11/13/2023 by Julian Martínez Jr., MD at [facility] Right: Tibia Synthes I 02.112.522 / / Synthes 3.5mm 6mm 42mm 2.5mm Self Tap Small Hexagonal Socket Low Profile 204.842 - [id number] Implanted:Qty: 1 on 01/08/2023 by Julian Martínez Jr., MD at [facility] Explanted:Qty: 1 on 11/13/2023 by Julian Martínez Jr., MD at [facility] Right: Tibia Synthes I 204.842 / / Synthes 3.5mm 2.9mm 10mm Self Tap Lock Stardrive Conical Head T15 Full 212.101 - [id number] Implanted:Qty: 1 on 01/08/2023 by Julian Martínez Jr., MD at [facility] Explanted:Qty: 1 on 11/13/2023 by Julian Martínez Jr., MD at [facility] Right: Tibia Synthes I 212.101 / / Synthes 3.5mm 2.9mm 45mm Self Tap Lock Stardrive Conical Head T15 Full 212.119 - [id number] Implanted:Qty: 1 on 01/08/2023 by Julian Martínez Jr., MD at [facility] Explanted:Qty: 1 on 11/13/2023 by Julian Martínez Jr., MD at [facility] Right: Tibia Synthes I 212.119 / / Synthes 3.5mm 6mm 20mm 2.5mm Self Tap Small Hexagonal Socket Low Profile 204.820 - [id number] Implanted:Qty: 1 on 01/08/2023 by Julian Martínez Jr., MD at [facility] Explanted:Qty: 1 on 11/13/2023 by Julian Martínez Jr., MD at [facility] Right: Tibia Synthes I 204.820 / / Synthes 3.5mm 2.9mm 40mm Self Tap Lock Stardrive Conical Head T15 Full 212.117 - [id number] Implanted:Qty: 1 on 01/08/2023 by Julian Martínez Jr., MD at [facility] Explanted:Qty: 1 on 11/13/2023 by Julian Martínez Jr., MD at [facility] Right: Tibia Synthes I 212.117 / / Synthes 3.5mm 2.9mm 24mm Self Tap Lock Stardrive Conical Head Pelvis T15 212.108 - [id number] Implanted:Qty: 1 on 01/08/2023 by Julian Martínez Jr., MD at [facility] Explanted:Qty: 1 on 11/13/2023 by Julian Martínez Jr., MD at [facility] Right: Tibia Synthes I 212.108 / / Synthes 3.5mm 2.9mm 20mm Self Tap Lock Stardrive Conical Head T15 Full 212.106 - [id number] Implanted:Qty: 2 on 01/08/2023 by Julian Martínez Jr., MD at [facility] Explanted:Qty: 2 on 11/13/2023 by Julian Martínez Jr., MD at [facility] Right: Tibia Synthes I 212.106 / / Synthes 3.5mm 6mm 40mm 2.5mm Self Tap Small Hexagonal Socket Low Profile 204.840 - [id number] Implanted:Qty: 1 on 11/13/2023 by Julian Martínez Jr., MD at [facility] Explanted:Qty: 1 on 03/08/2024 by Julian Martínez Jr., MD at [facility] Right: Tibia Synthes I 204.840 / / Synthes 3.5mm 6mm 30mm 2.5mm Self Tap Small Hexagonal Socket Low Profile 204.830 - [id number] Implanted:Qty: 1 on 11/13/2023 by Julian Martínez Jr., MD at [facility] Explanted:Qty: 1 on 03/08/2024 by Julian Martínez Jr., MD at [facility] Right: Tibia Synthes I 204.830 / / Synthes 3.5mm 6mm 36mm 2.5mm Self Tap Small Hexagonal Socket Low Profile 204.836 - [id number] Implanted:Qty: 1 on 11/13/2023 by Julian Martínez Jr., MD at [facility] Explanted:Qty: 1 on 03/08/2024 by Julian Martínez Jr., MD at [facility] Right: Tibia Synthes I 204.836 / / Synthes 3.5mm 2.9mm 40mm Self Tap Lock Stardrive Conical Head T15 Full 212.117 - [id number] Implanted:Qty: 2 on 11/13/2023 by Julian Martínez Jr., MD at [facility] Explanted:Qty: 2 on 03/08/2024 by Julian Martínez Jr., MD at [facility] Right: Tibia Synthes I 212.117 / / Synthes Plate Bone Compression Locking Low Profile 10 Hole Right Lcp 3.0q441gx Ss 02.112.522s - [id number] Implanted:Qty: 1 on 11/13/2023 by Julian Martínez Jr., MD at [facility] Explanted:Qty: 1 on 03/08/2024 by Julian Martínez Jr., MD at [facility] Right: Tibia Synthes 02.112.522S / / Synthes 3.5mm 2.9mm 24mm Self Tap Lock Stardrive Conical Head Pelvis T15 212.108 - [id number] Implanted:Qty: 3 on 11/13/2023 by Julian Martínez Jr., MD at [facility] Explanted:Qty: 3 on 03/08/2024 by Julian Martínez Jr., MD at [facility] Right: Tibia Synthes I 212.108 / / Synthes 3.5mm 6mm 24mm 2.5mm Self Tap Small Hexagonal Socket Low Profile 204.824 - [id number] Implanted:Qty: 1 on 11/13/2023 by Julian Martínez Jr., MD at [facility] Explanted:Qty: 1 on 03/08/2024 by Julian Martínez Jr., MD at [facility] Right: Tibia Synthes I 204.824 / / Procedures Procedure Name Priority Date/Time Associated Diagnosis Comments US CAROTIDS DUPLEX BILATERAL Schedule Routine, Read Routine (OP Routine) 10/27/2024 1:19 PM CDT Bilateral carotid artery stenosis EGFR Routine 03/01/2024 12:01 PM CDT Pre-op testing LIPID PANEL Routine 08/11/2023 12:17 PM LINEN WORKER HEPATITIS PANEL, ACUTE STAT 01/07/2023 7:40 AM CDT from Last 3 Months or Most Recently Relevant to Health Maintenance Results * US Carotids Duplex Bilateral (10/27/2024 1:19 PM CDT) Anatomical Region Laterality Modality Vascular Bilateral Ultrasound 10/27/2024 12:5 1 PM CDT Narrative 10/27/2024 1:54 PM CDT Vascular & Vein Surgery [address] [facility] [place] [address] Carotid Duplex Ultrasound Report Patient Name: LEIDY VOSS L : 1945 (79y 3m) Study Date: 10/27/2024 12:51:16 PM Gender: F [place] Attendant: Pily Read RVJesse Location: [facility] Ref Provider: STEPHANIE JULIEN Quality: Adequate Order Provider: STEPHANIE JULIEN PROCEDURES: Carotid Report: Carotid duplex examination of the extracranial arteries was performed using 2D, color and spectral Doppler. INDICATIONS: Follow up carotid stenosis. HISTORY: HTN. HLD. DM. CAD- FL S/P CABG. DM. 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 [...] MD - 10/27/2024 Vascular & Vein Surgery [address] [place] [address]. [place] [address] Carotid Duplex Ultrasound Report Patient Name: LEIDY VOSS L : 1945 (79y 3m) Study Date: 10/27/2024 12:51:16 PM Gender: F [place] Attendant: Pily Read RVJesse Location: [facility] Ref Provider: STEPHANIE JULIEN Quality: Adequate Order Provider: STEPHANIE JULIEN PROCEDURES: Carotid Report: Carotid duplex examination of the extracranial arterieswas performed using 2D, color and spectral Doppler. INDICATIONS: Follow up carotid stenosis. HISTORY: HTN. HLD. DM. CAD- FL S/P CABG. DM. 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 [...] internal carotid artery disease is consistent with jkwsutsc66-87% stenosis. 2. The left internal carotid artery disease is consistent with -62% stenosis. ATTESTATION: I have reviewed and interpreted [...] 03/01/2024 12:01 PM CDT us Angelia Clayton SUPPORT SERVICES COORDINATOR LAB BLOOD ORDERABLES Final Res ult [facility] [address] [place] [address] * Lipid panel (08/11/2023 12:17 PM LINEN WORKER) SCRIBED Cholesterol, Total 139 <200 EXTERNAL LAB SCRIBED HDL 44 >40 EXTERNAL LAB SCRIBED LDL 33 <100 EXTERNAL LAB SCRIBED Triglycerides 309 <150 EXTERNAL LAB Blood Burke Randhawa MD LAB BLOOD ORDERABLES Edit ed Result - Final Performing Organization Address [facility]/ZIP Co de Phone Number EXTERNAL LAB * Hepatitis panel, acute (01/07/2023 7:40 AM CDT) Hep A IgM Nonreactive Nonreactive [facility] Comment: Interpretive Data: If Hep A IgM Ab is reported as Equivocal, a new sample should be drawn in two weeks for testing. Current interpretive data was last revised on 19. Hep B core IgM Nonreactive Nonreactive [facility] Comment: Interpretive Data If HepB Core IgM Ab is reported as Equivocal, a new sample should be drawn in two weeks for testing. Current interpretive data was last revised on 19. Hep C Ab Nonreactive Nonreactive [facility] Comment: Interpretive Data Nonreactive: Antibodies to HCV [...] last revised on 2019. HepBsAg Nonreactive Nonreactive [facility] Blood 01/07/2023 7:40 AM CDT 01/07/2023 7:49 AM CDT Boris Solomon MD LAB MICROBIOLOGY - GENERAL ORD [place] [address] [address] Department of Laboratories [place], [place] [id number] from Last 3 Months or Most Recently Relevant to Health Maintenance Insurance MEDICARE [facility] MEDICARE BLUE CROSS MEDICARE SUPPLEMENT Advance Directives For more information, please contact: [phone] Documents on File Type Date Recorded Patient Residential Construction Instructor Expl anation ADVANCE DIRECTIVE 11/04/2021 9:22 AM POWER OF RUBBER GOODS TESTER-MEDICAL * Full Code (Latest Code Status on [...] 9:39 AM 11/03/2021 5:05 PM Care Teams Bicycle Assembler Relationship Specialty Start Date End Date Radha Brock MD [address] [place] [address] PCP - General 10/03/16 Yasmany Esquivel MD [address] [place] [address] Referring Physician Nephrology 11/03/21 Julian [place] [id number] [address] Surgeon Orthopedic Surgery 01/12/23
--- OUTSIDE RECORDS SUMMARY | 2025-01-19 12:12 | XMS_ITS | Encounter Summary ---
Author Organization [facility] Address [facility] [place] [address] Care Team Providers Care Breakfast Supervisor Name Role Phone Radha Brock MD Primary Care Provider [phone] Encounter Details Date Type Department Care Team (Latest Contact Info) Description 02/11/2024 Scan [facility] Scanned, Doc Med Group Social History Tobacco Use Types Packs/Day Years Used Date Smoking Tobacco: Never Smokeless Tobacco: Never Alcohol Use Standard Drinks/Week Comments Not Currently 0 (1 standard drink = 0.6 oz pur e alcohol) rare PHQ-2 Answer Date Recorded Patient Health Questionnaire-2 Score 0 12/31/2023 Comments No Sex and Gender Information Value Date Recorded Sex Assigned at Female 07/27/2024 3:06 PM ELECTROLYSIS ENGINEER Legal Sex Female 9:21 PM CDT Gender Identity Not on file Sexual Orientation Not on file documented as of this encounter Functional Status * RETIRED Are you deaf or do you have serious difficulty hearing Answer Date of Assessment Author Status No 04/16/2022 12:46 PM CDT Acti ve * RETIRED Are you blind or do you have serious difficulty seeing, even when wearing glasses? Answer Date of Assessment Author Status No 04/16/2022 12:46 PM CDT Acti ve * Do you have serious difficulty walking or climbing stairs? Answer Date of Assessment Author Status Yes 04/16/2022 12:46 PM CDT Daniela Williamson RN Active * Do you have difficulty dressing or bathing? Answer Date of Assessment Author Status Yes 04/16/2022 12:46 PM CDT Daniela Williamson RN Active * Because of a physical, mental, or emotional condition, do you have difficulty doing errands alone such as visiting a doctor's office or shopping? Answer Date of Assessment Author Status No 04/16/2022 12:46 PM Daniela Anderson RN Active documented as of this encounter Mental Status * Because of a physical, mental, or emotional condition, do you have serious difficulty concentrating, remembering, or making decisions? Answer Entry Date Author Status No 04/16/2022 12:46 PM TENISHAT Daniela Williamson RN Active documented in this encounter Plan of Treatment Upcoming Encounters Date Type Department Care Team (Late st Contact Info) Description 06/08/2025 8:30 AM ELECTROLYSIS ENGINEER Appointment [facility] LINER ASSEMBLER Mammography [address] [place] [address] Radha Brock MD [address] [place], [place] [id number] documented as of this encounter Visit Diagnoses Not on filedocumented in this encounter Additional Health Concerns Infection Onset Date Last Indicated Resolved Time ESBL - Extended Spectrum Beta-lactamase 02/03/2023 0 02/03/2023 Assessment Noted Time PHQ-9 Depression Total Score: 19 022 11:03 AM CDT documented as of this encounter Care Teams Breakfast Supervisor Relationship Specialty Start Date End Date Radha Brock MD [address] [place], [place] [id number] PCP - General FAMILY PRACTICE 09/30/22 documented as of this encounter
--- OUTSIDE RECORDS SUMMARY | 2025-01-19 12:12 | XMS_ITS | Encounter Summary ---
Author Organization [facility] Address [facility] [place] [address] Care Team Providers Care Electro Optics Engineer Name Role Phone Radha Brock MD Primary Care Provider [phone] Radha Brock MD Primary Care Provider [phone] Encounter Details Date Type Department Care Team (Latest Contact Info) Description 05/11/2018 Abstract [facility] , [place] Herrera MD Social History Tobacco Use Types Packs/Day Years Used Date Smoking Tobacco: Never Comments Unknown Sex and Gender Information Value Date Recorded Sex Assigned at Female 07/27/2024 3:06 PM CONSTRUCTION SCHEDULER Legal Sex Female 9:21 PM CDT Gender Identity Not on file Sexual Orientation Not on file documented as of this encounter Plan of Treatment Upcoming Encounters Date Type Department Care Team (Late st Contact Info) Description 06/08/2025 8:30 AM CONSTRUCTION SCHEDULER Appointment [facility] GLUING MACHINE OPERATOR Mammography [address] [place] [address] Radha Brock MD [address] [place] [id number] documented as of this encounter Visit Diagnoses Not on filedocumented in this encounter Additional Health Concerns Infection Onset Date Last Indicated Resolved Time COVID-19 Rule Out 02/18/2021 02/18/2021 02/18/2021 4:07 PM CDT COVID-19 Rule Out 06/05/2021 06/05/2021 06/06/2021 8:02 AM CONSTRUCTION SCHEDULER COVID-19 Rule Out 08/31/2021 08/31/2021 08/31/2021 1:35 AM CONSTRUCTION SCHEDULER COVID-19 Rule Out 03/06/2022 03/06/2022 03/06/2022 9:42 PM CDT COVID-19 Rule Out 04/16/2022 04/16/2022 04/16/2022 5:15 AM CDT COVID-19 Rule Out 04/16/2022 04/16/2022 04/16/2022 10:56 PM CDT ESBL - Extended Spectrum Beta-lactamase 02/03/2023 02/03/2023 documented as of this encounter Care Teams Electro Optics Engineer Relationship Specialty Start Date End Date Radha Brock MD [address] [place] [address] PCP - General FAMILY PRACTICE 12/31/18 09/29/22 Radha Brock MD [address] [place] [address] PCP - General FAMILY PRACTICE 09/30/22 documented as of this encounter
--- OUTSIDE RECORDS SUMMARY | 2025-01-19 12:12 | XMS_ITS | Clinical Summary ---
Author Organization [facility] Address [facility] [place] [address] Care Team Providers Care Windows Infrastructure Engineer Name Role Phone Radha Manuel MD Primary Care Provider Allergies Active Allergy Reactions Criticality Noted Date Comments Bumetanide Other (see comment) 08/25/2022 Kidney failure Carbamazepine Unknown,Itching,Oth er (see comment) Low 03/07/2020 fatigue Ciprofloxacin Unknown,Dizziness,H eadache,Nausea Only Low 03/09/2012 Nausea and dizziness Clindamycin Diarrhea Low 11/13/2023 Gabapentin Other (see comment) 05/16/2022 Kidney issues Kidney issues Hydrochlorothiazide-Tria mterene Itching Low 06/01/2020 Hydrocodone Unknown 03/17/2022 Hydrocodone-Acetaminophe n Itching,Nausea Only,Unknown Low 05/26/2013 Labetalol Dizziness,Itching,N ausea Only,Unknown Medium 03/09/2012 dizziness Metronidazole Unknown,Itching Low 03/21/2020 Penicillins Unknown,Rash Medium 03/03/2019 Simvastatin Rash Medium 07/07/2015 Sulfa Antibiotics Rash,Unknown Low 07/07/2015 Sulfamethoxazole-Trimeth oprim Other (see comment) Low 03/07/2020 Abdominal pain Abdominal pain Terbinafine Other (see comment),Unknown Medium 06/25/2012 messes up blood pressure and blood glucose Makes blood pressure and sugar messed up Makes blood pressure and sugar messed up Tramadol Dizziness,Unknown,N ausea Only,Rash Medium 03/09/2012 Triamterene Itching Low 07/12/2020 Tuberculin Purified Protein Derivative Unknown 03/09/2012 Medications aspirin 81 MG chewable tablet Chew 1 tablet (81 mg total) by mouth. Active Blood Glucose Monitoring Suppl (TRUE METRIX METER) w/Device KitIndications:Ty pe 2 diabetes mellitus ([facility]) Test blood sugar 2 times a day. 1 kit 023 Active hydrALAZINE (APRESOLINE) 50 MG tabletIndications :Hypertension, unspecified type take 1 tablet by mouth three times daily 270 tablet 024 Active Additional Information Patient not taking.Reason: Physican Directed, Reported on 01/11/2025 carvedilol (COREG) 25 MG tablet 024 Active atorvastatin (LIPITOR) 40 MG tabletIndications :Mixed hyperlipidemia Take 1 tablet (40 mg total) by mouth daily. 90 tablet 3 024 Active furosemide (LASIX) 20 MG tablet Take 4 tablets (80 mg total) by mouth 2 (two) times daily. Active vitamin D3 10 mcg tablet Take 1 tablet (400 Units total) by mouth daily. 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 90 tablet 024 Active TF carb steady (NEPRO) LiquidIndications :Dependence on renal dialysis 1 bottle daily 240 mL Active Glucose Blood (TRUE METRIX BLOOD GLUCOSE TEST) test stripIndications: Type 2 diabetes mellitus with chronic kidney disease on chronic dialysis, without long-term current use of insulin ([facility]) 1 strip by Other route as needed. Test blood sugars twice a day 100 strip 2 024 Active allopurinol (ZYLOPRIM) 100 MG tabletIndications :Stage 3 chronic kidney disease, unspecified whether stage 3a or 3b CKD ([facility]) TAKE 1 TABLET(100 MG) BY MOUTH DAILY 90 tablet 3 024 Active TRUE METRIX BLOOD GLUCOSE TEST test stripIndications: Type 2 diabetes mellitus with chronic kidney disease on chronic dialysis, without long-term current use of insulin ([facility]) Test blood sugar two times daily with True Metrix Blood Glucose test strips. 100 strip 3 024 Active Lancets MiscIndications:T ype 2 diabetes mellitus with chronic kidney disease on chronic dialysis, without long-term current use of insulin ([facility]) 2 Lancets by Does not apply route daily. 100 each 2 Active isosorbide mononitrate ER (IMDUR) 30 MG 24 hr tabletIndications :Hypertension, unspecified type Take 1 tablet (30 mg total) by mouth 2 (two) times daily. 180 tablet 3 024 Active Calcium Carbonate Antacid 1000 MG Chew Tab Chew 400 mg by mouth 2 (two) times daily. Active potassium chloride CR (K-TAB) 10 MEQ Tab CR tablet Take 1 tablet (10 mEq total) by mouth daily. 024 Active clopidogrel (PLAVIX) 75 MG tabletIndications :NSTEMI (non-ST elevated myocardial infarction) ([facility]) TAKE 1 TABLET(75 MG) BY MOUTH DAILY 90 tablet 1 024 Active CRYSTAL-RAMAN RX 1 MG TabIndications:St age 3 chronic kidney disease, unspecified whether stage 3a or 3b CKD ([facility]) Take 1 tablet by mouth daily. 90 tablet 3 025 Active hydrALAZINE HCl 100 MG TabIndications:An xiety Take 1 tablet by mouth 3 (three) times daily. 270 tablet 1 025 Active Additional Information Patient not taking.Reason: Physican Directed, Reported on 01/11/2025 glimepiride (AMARYL) 4 MG tabletIndications :Type 2 diabetes mellitus with chronic kidney disease on chronic dialysis, without long-term current use of insulin ([facility]) Take 1 tablet (4 mg total) by mouth 2 (two) times daily. 180 tablet 1 025 Active repaglinide (PRANDIN) 0.5 MG tabletIndications :Type 2 diabetes mellitus with chronic kidney disease on chronic dialysis, without long-term current use of insulin ([facility]) TAKE 1 TABLET BY MOUTH DAILY WITH BREAKFAST FOR 7 DAYS THEN TAKE 1 TABLET BY MOUTH TWICE DAILY BEFORE MEALS THEREAFTER 180 tablet 025 Active pantoprazole EC (PROTONIX) 40 MG tabletIndications :Gastroesophageal reflux disease without esophagitis TAKE 1 TABLET(40 MG) BY MOUTH DAILY 90 tablet 1 025 Active calcium acetate, phos binder, (PHOSLO) 667 MG Cap Take 1 capsule (667 mg total) by mouth 3 (three) times daily with meals. Active amLODIPine (NORVASC) 10 MG tabletIndications :Hypertension, unspecified type TAKE 1 TABLET(10 MG) BY MOUTH DAILY 90 tablet 3 025 Active amLODIPine (NORVASC) 10 MG tabletIndications :Hypertension, unspecified type Take 1 tablet (10 mg total) by mouth daily. 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 01/06/2023 Dependence on renal dialysis 06/20/2022 Pulmonary hypertension assoc iated with end stage renal disease on dialysis ([facility]) 06/20/2022 Chronic serous otitis media 05/14/2022 Acute respiratory failure with hypoxia ([facility]) 04/16/2022 Acute on chronic heart failu re with preserved ejection fraction ([facility]) 04/16/2022 Sepsis due to pneumonia ([facility]) 2021 CHF exacerbation ([facility]) 03/06/2022 Hypertensive urgency 01/09/2022 PSVT (paroxysmal supraventricular tachycardia) ( [facility]) 12/22/2021 Overview (10/13/2022): Added automatically from request for surgery [id number] NSTEMI (non-ST elevated myoc ardial infarction) ([facility]) 12/12/2021 Chest pain 10/15/2021 Overview (12/24/2021): Added automatically from request for surgery [id number] Gastrointestinal hemorrhage with hematemesis 06/2022 Overview (12/24/2021): Added automatically from request for surgery [id number] Hypoxemia requiring supplemental oxygen 08/28/19 22 Pre-transplant evaluation for kidney transplant 04/09/2021 Overview (04/20/2024): Leidy Voss 1945 Referring Pumper Helper: Yasmany Esquivel Listing Date: Dialysis Info: Type: Time: (Not currently on dialysis) days Blood Type: There is no height or weight on file to calculate BMI. ALERTS Fish Cake Maker: Past Medical History: Diagnosis Date ? Arthropathy ankle ? CKD (chronic kidney disease), stage IV ? Coronary artery disease 2012 CABG ? Diabetes mellitus 2008 Never had insulin. ? Esophageal reflux ? Gastroparesis diarrhea. Has frequently. Last has a couple days ago. Takes imodium that ususally makes it stop. ? Hypertension 40's ? Myocardial infarction 2012 [facility] ? DEJUAN on CPAP 2017 uses every night ? Peptic ulcer disease gastritis. follows with Dr. Argueta ? Primary gout 2020 feet. Past Surgical History: Procedure Laterality Date ? ANKLE SURGERY Right 10/15/2010 [facility] ? CARDIAC STERNAL PRECAUTION 09/10/2011 x2 ? Cholecystectomy, Open 1988 ? Coronary Artery Bypass Graft 11/14/2011 4 bypass ? HAND SURGERY 1991 carpal Tunnel ? [facility]ED[facility]/SURGERY 2018 ? Tonsillectomy 1951 Social History Socioeconomic History ? Marital status: Spouse name: Not on file ? Number of children: Not on file ? Years of education: Not on file ? Highest education level: Not on file Occupational History ? Not on file Tobacco Use ? Smoking status: Never Smoker ? Smokeless tobacco: Never Used Vaping Use ? Vaping Use: Never used Substance and Sexual Activity ? Alcohol use: Yes Comment: occasional ? Drug use: Never ? Sexual activity: Not on file Other Topics Concern ? Not on file Social History Narrative ? Not on file Social Determinants of Health Financial Resource Strain: ? Difficulty of Paying Living Expenses: Not on file Food Insecurity: ? Worried About Running Out of Food in the Last Year: Not on file ? Ran Out of Food in the Last Year: Not on file Transportation Needs: ? Lack of Transportation (Medical): Not on file ? Lack of Transportation (Non-Medical): Not on file Physical Activity: ? Days of Exercise per Week: Not on file ? Minutes of Exercise per Session: Not on file Stress: ? Feeling of Stress : Not on file Social Connections: ? Frequency of Communication with Friends and Family: Not on file ? Frequency of Social Gatherings with Friends and Family: Not on file ? Attends [employer] Services: Not on file ? Active Member of Clubs or Organizations: Not on file ? Attends Club or Organization Meetings: Not on file ? Marital Status: Not on file Intimate Partner Violence: ? Fear of Current or Ex-Partner: Not on file ? Emotionally Abused: Not on file ? Physically Abused: Not on file ? Sexually Abused: Not on file Housing Stability: ? Unable to Pay for Housing in the Last Year: Not on file ? Number of Places Lived in the Last Year: Not on file ? Unstable Housing in the Last Year: Not [...] did remove several times a day for [id number] exercises Follow-up in 3 weeks, likely discontinue [...] blurry vision which was worked up at [facility]. No stroke was noted. Follow-up note 04/30/2018: [...] of her shoulder surgery. Office visit with RADIAL ARM SAW OPERATOR 06/05/2020: She is here under the advice for PCP for concern of CHF. Her story is a little difficult to piece together as she tells it, but she perceives that her problems began a few weeks ago with a ?gout flare? in her feet, with pain and swelling in the toe joint. Her feet became swollen, and the gout flare subsided but the swelling did not. Now she is still having pain in the front of the feet and therefore she is in a wheelchair. She went to her PCP last week because she had ?rattling? in her breathing and a cough with clear sputum. CXR orderd by PCP showed impression of cardiomegaly and bilateral pulmonary opacities.? She was given an inhaler with some [...] also been advised to follow-up with her hyperion administrator. Prior to this recent illness she states she was able to lose 15 lb by eating healthier but she has now regained this weight. Currently she is drinking two 32 oz containers of water a day. Despite all this she states ?I feel fine.? Office visit with RADIAL ARM SAW OPERATOR 07/12/2020: after her last office visit she had an echo showing diastolic dysfunction. She had appt with Dr. Esquivel who increased her furosemide (her perception is this is a temporary increase), and she is also now under the care of a hyperion administrator Dr. 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 (CMS/HCC) (Primary) [...] Signed By: Marcio Julien MD 2020-08-17 17:33:04 SECOND OPERATOR [facility]: 11/11/2011 C CXR: CT abd/pelvis non-contrast: Renal [...] Pap: Panorex/Dental: SW: RD: Items Still Pending: Chronic diastolic congestive heart failure (CMS/HCC [facility]/HCC) 07/12/2020 B12 deficiency 06/19/2020 Chronic kidney disease, stage III (moderate) 05/2020 Iron deficiency anemia secondary to blood loss ( chronic) 06/15/2020 End stage renal disease (CMS/HCC [facility]/HCC) 2019 End-stage renal disease on hemodialysis ([facility]) 03/22/2020 Bilateral carotid artery stenosis 12/28/2019 Tibialis posterior tendonitis, right 09/05/2019 History of total ankle replacement, right 2019 Small intestinal bacterial overgrowth 12/09/2017 Hyperlipidemia associated wi th type 2 diabetes mellitus ([facility]) 07/08/2017 Obstructive sleep apnea syndrome 07/08/2017 Ischemic cardiomyopathy 04/25/2015 Overview (12/24/2021): Ischemic cardiomyopathy Unknown and unspecified causes of morbidity 02/2014 Overview (12/21/2021): Chronic kidney insufficiency Type 2 diabetes mellitus ([facility]) 03/13 Overview (12/24/2021): Type 2 diabetes mellitus with diabetic chronic kidney disease Diabetes mellitus Cerebrovascular accident (CV A) due to other mechanism ([facility]) 03/13/2014 Overview (12/09/2023): Carotid artery disease Carotid artery disease Dyslipidemia 03/13/2014 Overview (12/24/2021): Dyslipidemia Hypertension associated with stage 3 chronic kidney disease due to type 2 diabetes mellitus ([facility]) 03/01/2014 Acute sinusitis 05/26/2013 H/O long-term treatment with high-risk medicatio n 04/21/2012 Esophageal reflux 03/24/2012 Encounter for preventive health examination 10/2011 Overview (12/21/2021): Images from the original note were not included. Leidy Voss 1945 Referring Pumper Helper: Yasmany Esquivel Listing Date: Dialysis Info: Type: Time: (Not currently on dialysis) days Blood Type: There is no height or weight on file to calculate BMI. ALERTS Fish Cake Maker: Past Medical History: Diagnosis Date Arthropathy ankle [...] Procedure Laterality Date ANKLE SURGERY Right 10/15/2010 [facility] CARDIAC STERNAL PRECAUTION 09/10/2011 x2 Cholecystectomy, Open 1988 Coronary Artery Bypass Graft 11/14/2011 4 bypass HAND SURGERY 1990 carpal [facility]unnel [facility] Tonsillectomy 195 Social History [...] Friends and Family: Not on file Attends [employer] Services: Not on file Active Member of [...] did remove several times a day for [id number] exercises Follow-up in 3 weeks, likely discontinue [...] blurry vision which was worked up at [facility]. No stroke was noted. Follow-up note 04/30/2018: [...] of her shoulder surgery. Office visit with RADIAL ARM SAW OPERATOR 06/05/2020: She is here under the [...] also been advised to follow-up with her hyperion administrator. Prior to this recent illness she states she was able to lose 15 lb by eating healthier but she has now regained this weight. Currently she is drinking two 32 oz containers of water a day. Despite all this she states I feel fine. Office visit with RADIAL ARM SAW OPERATOR 07/12/2020: after her last office visit she had an echo showing diastolic dysfunction. She had appt with Dr. Esquivel who increased her furosemide (her perception is this is a temporary increase), and she is also now under the care of a hyperion administrator Dr. 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 Leidy Voss 1945 Referring Pumper Helper: Yasmany Esquivel Listing Date: Dialysis Info: Type: Time: (Not currently on dialysis) days Blood Type: There is no height or weight on file to calculate BMI. ALERTS Fish Cake Maker: Past Medical History: Diagnosis Date Arthropathy ankle [...] Procedure Laterality Date ANKLE SURGERY Right 10/15/2010 [facility] CARDIAC STERNAL PRECAUTION 09/10/2011 x2 Cholecystectomy, Open 1988 Coronary Artery Bypass Graft 11/14/2011 4 bypass HAND SURGERY 1990 carpal Tunnel Hysterectomy 1985 total. [facility] [place] SHOULDER PROCEDURE/SURGERY 2019 Tonsillectomy 1952 Social History Socioeconomic History Marital status: Spouse [...] Friends and Family: Not on file Attends [employer] Services: Not on file Active Member of [...] did remove several times a day for [id number] exercises Follow-up in 3 weeks, likely discontinue [...] blurry vision which was worked up at [facility]. No stroke was noted. Follow-up note 04/30/2018: [...] of her shoulder surgery. Office visit with RADIAL ARM SAW OPERATOR 06/05/2020: She is here under the [...] also been advised to follow-up with her hyperion administrator. Prior to this recent illness she states she was able to lose 15 lb by eating healthier but she has now regained this weight. Currently she is drinking two 32 oz containers of water a day. Despite all this she states I feel fine. Office visit with RADIAL ARM SAW OPERATOR 07/12/2020: after her last office visit she had an echo showing diastolic dysfunction. She had appt with Dr. Esquivel who increased her furosemide (her perception is this is a temporary increase), and she is also now under the care of a hyperion administrator Dr. 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 (CMS/HCC) (Primary) [...] Signed By: Marcio Julien MD 2020-08-17 17:33:04 SECOND OPERATOR [facility]: 11/11/2011 C CXR: CT abd/pelvis non-contrast: Renal [...] Pap: Panorex/Dental: SW: RD: Items Still Pending: Atherosclerosis of coronary artery 03/09/2012 Overview (12/24/2021): Coronary artery disease involving barrow coronary artery of barrow heart without angina pectoris Coronary artery disease involving barrow coronary artery of barrow heart without angina pectoris Resolved Problems Problem Noted Date Diagnosed Date Resolved Date Hyperkalemia 12/20/2021 03/17/2022 Pre-op examination 08/16/2020 2 Tinea pedis 03/10/2012 03/17/2022 Encounters Date Type Department Care Team Description 01/11/2025 1:40 PM CDT Office Visit [address] [address] Radha Manuel MD Swelling (Patient is an established patient and is here for swelling in her right toe and bumps on top of right foot, but they went away this am. She also states she has had a headache for last 2 weeks and has completed 6 weeks of therapy.) 01/11/2025 Travel 01/09/[address] [address] Radha Manuel MD Update; MRI/CT Orders 01/03/2025 Scan [facility] Scanned, [facility] 12/13/2024 Scan [facility] Scanned, [facility] 11/21/2024 Scan [facility] Scanned, [facility] 11/18/2024 Results Follow-Up [address] [address] Radha Manuel MD XR CERV SPINE 3V, HEMOGLOBIN, GLYCOSYLATED, COMPREHENSIVE METABOLIC PANEL, CBC W/DIFF AUTOMATED 11/16/2024 1:49 PM CDT - 11/16/2024 11:59 PM CDT Hospital Encounter [facility] Diagnostic Imaging [address] [place] [address] Radha Manuel MD Discharge Disposition: Home or Self Care (Routine Discharge) 11/16/2024 12:40 PM CDT Office Visit [facility] Family Medicine - [address] [address] Radha Manuel MD Medication Check (Patient is here for a medication check and is also having headaches.Patient states the headaches have been going on for weeks she has been having some problems with her neck) 11/16/2024 Travel 10/27/2024 Scan HEALTH INFO [facility] Scanned, [facility] from Last 3 Months Immunizations Immunization Administration Dates Next Due Fluarix 06/06/2015 Fluzone 6 Months+ Quad (0.5 mL Prefilled Syringe) 04/21/2022 Fluzone High Dose - >Age 65 (Prefilled Syringe) 04/19/2024,04/20/2019,05/12/2018,2016 Hepatitis B (Generic: Adult) 09/10/2023, 05/11/2023,04/08/2023,2022 Influenza (Generic) 04/30/2022, 9,06/06/2015,2014,03/25/2013,03/25/2013 Influenza Adult (Generic) 05/13/2022,,09/05/2020,2020,04/20/2019,05/12/2018,04/09/2017 Pneumococcal (Pneumovax 23) 05/16/2013 Pneumococcal (Prevnar 13) 06/06/2015 Pneumococcal (Prevnar 7) 03/06/2017 Family History Medical History Relation Comments Cancer Father bone Heart Disease Mother Ovarian Cancer Mother Stroke Mother Breast Cancer Paternal Aunt Diabetes Sister Hypertension Sister Relation Status Comments Brother Daughter Alive Father Mother Paternal Aunt Sister Alive Son Alive Social History Tobacco Use Types Packs/Day Years Used Date Smoking Tobacco: Never Smokeless Tobacco: Never Tobacco Cessation:Counseling Given: No Alcohol Use Standard Drinks/Week Comments Not Currently 0 (1 standard drink = 0.6 oz pur e alcohol) rare PHQ-2 Answer Date Recorded Patient Health Questionnaire-2 Score 0 11/16/2024 Comments No Sex and Gender Information Value Date Recorded Sex Assigned at Female 07/27/2024 3:06 PM SECOND OPERATOR Legal Sex Female 9:21 PM CDT Gender Identity Not on file Sexual Orientation Not on file Last Filed Vital Signs Vital Sign Reading Time Taken Comments Blood Pressure 133/69 01/11/2025 1:57 PM CDT Pulse 71 01/11/2025 1:57 PM CDT Temperature 36.6 C (97.9 F) 01/11/2025 1:52 PM CDT Respiratory Rate 16 09/30/2024 1:16 PM CDT Oxygen Saturation 98% 01/11/2025 1:52 PM CDT Inhaled Oxygen Concentration - - Weight 60.2 kg (132 lb 12.8 oz) 01/11/2025 1:52 PM CDT Height 149.9 cm (4' 11) 01/11/2025 1:52 PM CDT Body Mass Index 26.82 01/11/2025 1:52 PM CDT Plan of Treatment Upcoming Encounters Date Type Department Care Team (Late st Contact Info) Description 06/08/2025 8:30 AM SECOND OPERATOR Appointment [facility] PRIMARY CARE NURSE PRACTITIONER Mammography [address] [place] [address] Radha Manuel MD [address] [id number] Health Maintenance Due Date Last Done Comments DTaP, Tdap and Td Vaccines (1 - Tdap) 1964 Zoster Vaccines (1 of 2) 1995 Annual Medicare Wellness Visit 2010 Dexa Scan (General) 2010 RSV Immunization or 60+ Years (1 - 1-dose 75+ series) 2020 ASCVD LDL 08/11/2024 08/11/2023, 07/0 01/2022, 12/22/2021, Additional history exists Diabetes: Retinopathy Eye Exam 08/19/2024 08/19/2022 Lipid Panel 12/07/2024 12/08/2023, 020 12/2023, 01/09/2022, Additional history exists Hemoglobin A1C 05/19/2025 11/16/2024, 04/05, 12/08/2023, Additional history exists COVID-19 Vaccine ( season) 2025 Postponed from 03/06/2024 (Patient Refused) Pneumococcal Vaccine: 50+ Years Completed 03/06/2017, 06/06/2015, 05/16/2013 Hepatitis C Completed 01/07/2023 PHQ-2 (Physician [place]) Completed 11/16/2024 Meningococcal B Vaccine Aged Out No l onger eligible based on patient's age to complete this topic Meningococcal Vaccine Aged Out No chapis melodie eligible based on patient's age to complete this topic RSV Immunizations Under 20 Months Aged Out No longer eligible based on patient's age to complete this topic Procedures Procedure Name Priority Date/Time Associated Diagnosis Comments XR CERV SPINE 3V Routine 11/16/2024 1:50 PM CDT Neck pain Nonintractable headache, unspecified chronicity pattern, unspecified headache type COLLECTION VENOUS BLOOD VENIPUNCTURE Routine 11/16/2024 1:24 PM CDT Neck pain Nonintractable headache, unspecified chronicity pattern, unspecified headache type Type 2 diabetes mellitus with chronic kidney disease on chronic dialysis, without long-term current use of insulin ([facility]) CBC W/DIFF AUTOMATED Routine 11/16/2024 1:24 PM CDT Neck pain Nonintractable headache, unspecified chronicity pattern, unspecified headache type COMPREHENSIVE METABOLIC PANEL Routine 11/16/2024 1:24 PM CDT Neck pain Nonintractable headache, unspecified chronicity pattern, unspecified headache type HEMOGLOBIN, GLYCOSYLATED Routine 11/16/2024 1:24 PM CDT Neck pain Nonintractable headache, unspecified chronicity pattern, unspecified headache type Type 2 diabetes mellitus with chronic kidney disease on chronic dialysis, without long-term current use of insulin ([facility]) LIPID PANEL Routine 08/11/2023 12:00 PM SECOND OPERATOR Atherosclerosis 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 DIABETIC RETINOPATHY EXAM (NEGATIVE)(SCAN ORDER) Routine 08/19/2022 from Last 3 Months or Most Recently Relevant to Health Maintenance Results * XR CERV SPINE 3V (11/16/2024 1:50 PM CDT) Anatomical Region Laterality Modality Spine Radiographic Luisana ging 11/16/2024 2:22 PM CDT Impressions 11/16/2024 2:23 PM CDT IMPRESSION: Chronic diffuse disc disease Ordered By: RADHA MANUEL Interpreted By: Miki Avalos MD, 11/16/2024 2:22 PM Narrative 11/16/2024 2:23 [place] [address] 3 VIEWS OF THE CERVICAL SPINE Clinical History: Pain Comparison: February 23, 2019 3 views of the cervical spine demonstrate the bony elements to be intact. There is no evidence of fracture or dislocation. The vertebral body heights are symmetric and within normal limits. The intervertebral disc heights demonstrate chronic loss of disc height throughout the entirety of the cervical spine with associated degenerative changes in the adjacent endplates. This is most notable at C4-C5 but appears unchanged.. The facets are normally aligned. The spinous processes appear normal. The anterior cervical soft tissues are within normal limits. Procedure Note Miki Avalos MD - 11/16/2024 [place] [address] 3 VIEWS OF THE CERVICAL SPINE Clinical History: Pain Comparison: February 23, 2019 3 views of the cervical spine demonstrate the bony elements to be intact.There is no evidence of fracture or dislocation. The vertebral bodyheights are symmetric and within normal limits. The intervertebral discheights demonstrate chronic loss of disc height throughout the entirety ofthe cervical spine with associated degenerative changes in the adjacentendplates. This is most notable at C4-C5 but appears unchanged.. Thefacets are normally aligned. The spinous processes appear normal. Theanterior cervical soft tissues are within normal limits. IMPRESSION: Chronic diffuse disc disease Ordered By: RADHA MANUEL Interpreted By: Miki Avalos MD, 11/16/2024 2:22 PM Radha Manuel MD GENERAL IMAGING Final Result * (ABNORMAL) HEMOGLOBIN, GLYCOSYLATED (11/16/2024 1:24 PM CDT) Pathologist [facility] HGB A1C 5.7 4.5 - 6.2 % 11/16/2024 6:[address] ESTIMATED AVG GLUCOSE 117(H) 74 - 106 MG/DL 11/16/2024 6:[address] 11/16/2024 1:24 PM CDT Radha Manuel MD LABORATORY Final Result [facility] [place] [address], * (ABNORMAL) COMPREHENSIVE METABOLIC PANEL (11/16/2024 1:24 PM CDT) Pathologist [facility] SODIUM S/P/B 140 136 - 145 MMOL/L 11/16/2024 6:[address] POTASSIUM S/P/B 4.5 3.5 - 5.1 MMOL/L 11/16/2024 6:[address] CHLORIDE S/P/B 99 98 - 107 MMOL/L 11/16/2024 6:37 [address] CO2 30.2 21 - 32 MMOL/L 11/16/2024 6:37 [address] GLUCOSE 246(H) 70 - 99 MG/DL 11/16/2024 6:52 PM CDT [address] Comment:RESULTS CONFIRMED-TE ST REPEATED BUN 40(H) 7 - 18 MG/DL 11/16/2024 6:37 PM CDT [facility] [address] CREATININE S/P/B 7.94(HH) 0.55 - 1.02 MG/DL 11/16/2024 6:37 PM CDT [facility] Comment: CRITICAL VALUE VERIFIED, CALLED TO, AND READ BACK BY: CAITY ALVAREZ @1818 HD CALCIUM S/P/B 7.8(L) 8.4 - 10.5 MG/DL 11/16/2024 6:52 PM CDT [facility] Comment:RESULTS CONFIRMED-TE ST REPEATED BILIRUBIN TOTAL S/P/B 0.3 0.2 - 1.0 MG/DL 11/16/2024 6:37 PM CDT [facility] ALKALINE PHOSPHATASE S/P/B 116 55 - 142 U/L 11/16/2024 6:37 PM CDT [facility] [facility] AST 16 15 - 37 U/L 11/16/2024 6:37 PM CDT [facility] [facility] ALT 15 14 - 59 U/L 11/16/2024 6:52 PM CDT [facility] [facility] Comment:RESULTS CONFIRMED-TE ST REPEATED TOTAL PROTEIN S/P/B 6.2(L) 6.4 - 8.2 G/DL 11/16/2024 6:52 PM CDT [facility] [facility] Comment:RESULTS CONFIRMED-TE ST REPEATED ALBUMIN S/P/B 2.9(L) 3.4 - 5.0 G/DL 11/16/2024 6:52 PM CDT [facility] [facility] Comment:RESULTS CONFIRMED-TE ST REPEATED ANION GAP 10.8 5 - 15 MMOL/L 11/16/2024 6:37 PM CDT [facility] Comment:REFERENCE RANGE NOT ESTABLISHED OSMOLALITY (CALC) 308 MOSM/KG 025 6:52 PM CDT [facility] Comment:REFERENCE RANGE NOT ESTABLISHED GFR ESTIMATE 5(L) >90 ML/MIN/1. 73 M2 11/16/2024 6:37 PM CDT [facility] GFR NOTES GFR REFERENCE S: 11/16/2024 6:37 PM CDT [facility] Comment: THE ESTIMATED GFR IS CALCULATED USING THE 2020 CKD-EPI EQUATION. THE FOLLOWING CATEGORIES FOR GRADING RENAL FUNCTION ARE RECOMMENDED BY THE INTERNATIONAL SOCIETY OF NEPHROLOGY (KDIGO 2012 CLINICAL PRACTICE GUIDELINE). G1,NORMAL OR HIGH: >89 ml/min/1.73 m2 G2,MILDLY DECREASED: 60-89 ml/min/1.73 m2 G3A,MILDLY TO MODERATELY DECREASED: 45-59 ml/min/1.73 m2 G3B,MODERATELY TO SEVERELY DECREASED: 30-44 ml/min/1.73 m2 G4,SEVERELY DECREASED: 15-29 ml/min/1.73 m2 G5,KIDNEY FAILURE: <15 ml/min/1.73 m2 11/16/2024 1:24 PM CDT us Radha Manuel MD LABORATORY Final Result [facility] [place] [address], * (ABNORMAL) CBC W/DIFF AUTOMATED (11/16/2024 1:24 PM CDT) WBC 13.67(H) 4.00 - 10.80 x10'3/uL 11/16/2024 5:[address] RBC 2.92(L) 4.10 - 5.40 x10'6/uL 11/16/2024 5:[address] HGB 9.7(L) 12.0 - 16.0 G/DL 11/16/2024 5:37 PM CDT [facility] HCT 30.2(L) 36.0 - 47.0 % 11/16/2024 5:[address] MCV 103.4(H) 78.0 - 100.0 FL 11/16/2024 5:[address] MCH 33.2(H) 27.0 - 31.0 PG 11/16/2024 5:37 PM CDT [facility] MCHC 32.1(L) 33.0 - 36.0 G/DL 11/16/2024 5:37 PM CDT MG-W [facility] RDW 14.7(H) 11.5 - 14.5 % 11/16/2024 5:37 PM CDT MG-W [facility] PLT 238 150 - 350 x10'3/uL 11/16/2024 5:37 PM CDT MG-W [facility] MPV 10.0 7.4 - 10.4 FL 11/16/2024 5:37 PM CDT [facility] DIFFERENTIAL TYPE AUTOMATED DIFFERENTIAL 11/16/2024 5:37 PM CDT [facility] NEUTROPHILS % 75.1 % 11/16/2024 5:37 PM CDT [facility] LYMPHOCYTES % 14.7 % 11/16/2024 5:37 PM CDT [facility] MONOCYTES % 7.7 % 11/16/2024 5:37 PM CDT [facility] EOSINOPHILS % 1.6 % 11/16/2024 5:37 PM CDT [facility] BASOPHILS % 0.2 % 11/16/2024 5:37 PM CDT [facility] IMMATURE GRANS % 0.7 % 11/16/2024 5:37 PM CDT [facility] [facility] ABS. NEUTROPHILS 10.27(H) 1.60 - 8.30 x10'3/uL 11/16/2024 5:37 PM CDT MG-W [facility] [facility] ABS. LYMPHOCYTES 2.01 0.80 - 4.70 x10'3/uL 11/16/2024 5:37 PM CDT [facility] [address] ABS. MONOCYTES 1.05 0.00 - 1.50 x10'3/uL 11/16/2024 5:37 PM CDT [facility] ABS. EOSINOPHILS 0.22 0.00 - 0.40 x10'3/uL 11/16/2024 5:37 [address] ABS. BASOPHILS 0.03 0.00 - 0.20 x10'3/uL 11/16/2024 5:37 [address] ABS. IMMATURE GRANULOCYTES 0.09 x10'3/uL 11/16/2024 5:[address] 11/16/2024 1:24 PM CDT us Radha Manuel MD LABORATORY Final Result Performing Organization Address City/[facility] [[email or web address]] Co de Phone Number [address] [place] [address], * (ABNORMAL) LIPID PANEL (08/11/2023 12:00 PM SECOND OPERATOR) CHOLESTEROL 139 0 - 199 MG/DL 08/11/2023 2:06 PM SECOND OPERATOR [facility] TRIGLYCERIDES 309(H) 0 - 149 MG/DL 08/11/2023 2:06 PM SECOND OPERATOR [facility] HDL 44 >39 MG/DL 08/11/2023 2:06 PM [facility] LDL (CALCULATED) 33 <100 MG/DL 08/11/19 24 2:06 PM SECOND OPERATOR [facility] VLDL CALCULATION 62 MG/DL 08/11/19 24 2:06 PM [facility] Comment:REFERENCE RANGE NOT ESTABLISHED CHOL/HDL RATIO 3.2 08/11/2023 2:06 PM [facility] Comment:REFERENCE RANGE NOT ESTABLISHED LDL/HDL 1.0 08/11/2023 2:06 PM [facility] Comment:REFERENCE RANGE NOT ESTABLISHED NON HDL CHOLESTEROL 95 MG/DL 08/11/2023 2:06 PM [facility] Comment:REFERENCE RANGE NOT ESTABLISHED 08/11/2023 12:0 0 PM SECOND OPERATOR us Nicol [facility] Final Res ult [facility] [address] [place] [address], * DIABETIC RETINOPATHY EXAM (NEGATIVE)(SCAN) (08/19/2022) us Doc [facility] Scanned SCANNING Final Resu lt [facility] from Last 3 Months or Most Recently Relevant to Health Maintenance Additional Health Concerns Infection Onset Date Last Indicated ESBL - Extended Spectrum Beta-lactamase 02/04/20 23 02/03/2023 Insurance MEDICARE [facility] MEDICARE Advance Directives Documents on File Type Date Recorded Patient Service Station Operator Expl anation Advance Directives and Living Will 01/10/2022 2:33 PM 09/12/2021 [facility] * Full Code (Latest Code Status on File) Date Activated Date Inactivated Comments 04/16/2022 11:43 AM 04/21/2022 3:50 PM * Full Code Date Activated Date Inactivated Comments 03/07/2022 3:16 PM 03/08/2022 3:18 PM * Full Code Date Activated Date Inactivated Comments 01/09/2022 7:59 AM 01/11/2022 7:51 PM * Full Code Date Activated Date Inactivated Comments 12/22/2021 12:17 AM 12/24/2021 2:13 PM Care Teams Windows Infrastructure Engineer Relationship Specialty Start Date End Date Radha Manuel MD [address] [place] [id number] PCP - General FAMILY PRACTICE 09/30/22
--- OUTSIDE RECORDS SUMMARY | 2025-01-19 12:12 | XMS_ITS | Encounter Summary ---
Author Organization [facility] Address Formerly [facility], 1928[id number] [place] [address] Care Team Providers Care Retail Pos Specialist Name Role Phone Radha Brock MD Primary Care Provider [phone] Radha Brock MD Primary Care Provider [phone] Encounter Details Date Type Department Care Team (Late Contact Info) Description 06/11/2020 Community Orders [facility] EPICCARE LINK Nicol Monteiro FNP Social History Tobacco Use Types Packs/Day Years Used Date Smoking Tobacco: Never Smokeless Tobacco: Never Alcohol Use Standard Drinks/Week Comments Yes 0 (1 standard drink = 0.6 oz pur e alcohol) rare Comments No Sex and Gender Information Value Date Recorded Sex Assigned at Female 07/27/2024 3:06 PM DAIRY NUTRITION CONSULTANT Legal Sex Female 9:21 PM CDT Gender Identity Not on file Sexual Orientation Not on file COVID-19 Exposure Response Date Recorded In the last month, have you been in contact with someone who was confirmed or suspected to have Coronavirus / COVID-19? No / Unsure 06/11/2020 7:04 PM DAIRY NUTRITION CONSULTANT documented as of this encounter Plan of Treatment Upcoming Encounters Date Type Department Care Team (Late Contact Info) Description 06/08/2025 8:30 AM DAIRY NUTRITION CONSULTANT Appointment [facility] MANAGER HRIS Mammography [address] [place] [address] Radha Brock MD [address] [place] [address] [id number] documented as of this encounter Visit Diagnoses Diagnosis Anemia- Primary Anemia, unspecified documented in this encounter Additional Health Concerns Infection Onset Date Last Indicated Resolved Time COVID-19 Rule Out 02/18/2021 02/18/2021 02/18/2021 4:07 PM CDT COVID-19 Rule Out 06/05/2021 06/05/2021 06/06/2021 8:02 AM DAIRY NUTRITION CONSULTANT COVID-19 Rule Out 08/31/2021 08/31/2021 08/31/2021 1:35 AM DAIRY NUTRITION CONSULTANT COVID-19 Rule Out 03/06/2022 03/06/2022 03/06/2022 9:42 PM CDT COVID-19 Rule Out 04/16/2022 04/16/2022 04/16/2022 5:15 AM CDT COVID-19 Rule Out 04/16/2022 04/16/2022 04/16/2022 10:56 PM CDT ESBL - Extended Spectrum Beta-lactamase 02/03/2023 02/03/2023 documented as of this encounter Care Teams Retail Pos Specialist Relationship Specialty Start Date End Date Radha Brock MD [address] [place] [address] PCP - General FAMILY PRACTICE 12/31/18 09/29/22 Radha Brock MD [address] [place] [address] PCP - General FAMILY PRACTICE 09/30/22 documented as of this encounter
--- OUTSIDE RECORDS SUMMARY | 2025-01-19 12:12 | XMS_ITS | Clinical Summary ---
Author Organization [facility] Address [address] [place] [address] Phone Care Team Providers Care Explosive Operator Fuse Name Role Phone DelmyMatthias royelle Ruby Primary Care Provider [phone] Allergies Active Allergy Reactions Criticality Noted Date [...] were not included. Leidy Voss 1945 Referring Systems Test Technician: Yasmany Esquivel Listing Date: Dialysis Info: Type: Time: (Not currently on dialysis) days Blood Type: There is no height or weight on file to calculate BMI. ALERTS Installation And Repair Technician: Past Medical History: Diagnosis Date Arthropathy ankle [...] Procedure Laterality Date ANKLE SURGERY Right 10/15/2010 [place] [facility] CARDIAC STERNAL PRECAUTION 09/10/2011 x2 Cholecystectomy, Open 1988 Coronary Artery Bypass Graft 11/14/2011 4 bypass HAND SURGERY 1990 carpal Tunnel [facility]ste[facility] Tonsillectomy [...] Friends and Family: Not on file Attends Episcopalian Services: Not on file Active Member of [...] did remove several times a day for sabay-py-pimaqu exercises Follow-up in 3 weeks, likely discontinue [...] blurry vision which was worked up at [place]. No stroke was noted. Follow-up note 04/30/2018: [...] of her shoulder surgery. Office visit with ORACLE SOA CONSULTANT 06/05/2020: She is here under the advice [...] also been advised to follow-up with her channel business manager. Prior to this recent illness she states she was able to lose 15 lb by eating healthier but she has now regained this weight. Currently she is drinking two 32 oz containers of water a day. Despite all this she states I feel fine. Office visit with ORACLE SOA CONSULTANT 07/12/2020: after her last office visit she had an echo showing diastolic dysfunction. She had appt with Dr. Esquivel who increased her furosemide (her perception is this is a temporary increase), and she is also now under the care of a channel business manager Dr. 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 Leidy Voss 1945 Referring Systems Test Technician: Yasmany Esquivel Listing Date: Dialysis Info: Type: Time: (Not currently on dialysis) days Blood Type: There is no height or weight on file to calculate BMI. ALERTS Installation And Repair Technician: Past Medical History: Diagnosis Date Arthropathy ankle CKD (chronic kidney disease), stage IV Coronary artery disease 2011 CABG Diabetes mellitus 2007 Never had insulin. Esophageal reflux Gastroparesis diarrhea. Has frequently. Last has a couple days ago. Takes imodium that ususally makes it stop. Hypertension 40's Myocardial infarction 2011 [facility] DEJUAN on CPAP 2017 uses every night Peptic ulcer disease gastritis. follows with Dr. Argueta Primary gout 2020 feet. Past Surgical History: Procedure Laterality Date ANKLE SURGERY Right 10/15/2010 [facility] CARDIAC STERNAL PRECAUTION 09/10/2011 x2 Cholecystectomy, Open 1988 Coronary Artery Bypass Graft 11/14/2011 4 bypass HAND SURGERY 1990 carpal Tunnel Hysterectomy 1985 total. Kirsten [facility] [place] SHOULDER PROCEDURE/SURGERY 2019 Tonsillectomy 1951 Social History [...] Friends and Family: Not on file Attends Episcopalian Services: Not on file Active Member of [...] did remove several times a day for jdimz-le-knpzgi exercises Follow-up in 3 weeks, likely discontinue [...] blurry vision which was worked up at [place]. No stroke was noted. Follow-up note 04/30/2018: [...] of her shoulder surgery. Office visit with ORACLE SOA CONSULTANT 06/05/2020: She is here under the advice [...] also been advised to follow-up with her channel business manager. Prior to this recent illness she states she was able to lose 15 lb by eating healthier but she has now regained this weight. Currently she is drinking two 32 oz containers of water a day. Despite all this she states I feel fine. Office visit with ORACLE SOA CONSULTANT 07/12/2020: after her last office visit she had an echo showing diastolic dysfunction. She had appt with Dr. Esquivel who increased her furosemide (her perception is this is a temporary increase), and she is also now under the care of a channel business manager Dr. 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 (CMS/HCC) (Primary) [...] Signed By: Marcio Julien MD 2020-08-17 17:33:04 [facility]: 11/11/2011 C CXR: CT [...] 2 diabetes mellitus 10/21/2017 Coronary arteriosclerosis in nikolski artery 07/08 Overview (03/03/2019): Coronary artery disease involving nikolski coronary artery of nikolski heart without angina pectoris Obstructive sleep apnea [...] on file Legal Sex Female 10:05 AM [facility] Gender Identity Not on file Sexual Orientation Not on file Last Filed Vital Signs Vital Sign Reading Time Taken Comments Blood Pressure 124/70 06/05/2022 10:27 AM FLUMER Pulse 72 06/05/2022 10:27 AM FLUMER Temperature 36.4 C (97.6 F) 06/05/2022 10:27 AM FLUMER Respiratory Rate - - Oxygen Saturation - - Inhaled Oxygen Concentration - - Weight 55.3 kg (122 lb) 06/05/2022 10:27 AM FLUMER Height 149.9 cm (4' 11) 06/05/2022 10:27 AM FLUMER Body Mass Index 24.64 06/05/2022 10:27 AM FLUMER Plan of Treatment Health Maintenance Due Date Last Done Comments Influenza Vaccine (#1) 2025 , 04/30/2022, 04/21/2022, Additional history exists Pneumococcal PPSV23/PCV13 65 + Years / Low and Medium Risk Completed 06/06/2015, 05/16/2013 Insurance MEDICARE [facility] Advance Directives For more information, please contact: [phone] (7AM - 4PM [facility], 7 days a week) Documents on File Type Date Recorded Patient Trench Pipe Layer Helper Expl anation Power of Automation And Controls Manager 06/07/2015 2:48 PM Care Teams Explosive Operator Fuse Relationship Specialty Start Date End Date Radha Brock PCP - General Family Medicine 06/19/20
--- OUTSIDE RECORDS SUMMARY | 2025-01-19 12:12 | XMS_ITS | Encounter Summary ---
Author Organization [facility] Address [facility] [place] [address] Care Team Providers Care Emergency Specialist Name Role Phone Radha Brock MD Primary Care Provider [phone] Radha Brock MD Primary Care Provider [phone] Encounter Details Date Type Department Care Team (Late Contact Info) Description 06/08/2017 Abstract [facility] Conversion [address] [place], [place] [id number] , Generic ConversionMD Social History Tobacco Use Types Packs/Day Years Used Date Smoking Tobacco: Never Comments Unknown Sex and Gender Information Value Date Recorded Sex Assigned at Female 07/27/2024 3:06 PM TUGGER OPERATOR Legal Sex Female 9:21 PM CDT Gender Identity Not on file Sexual Orientation Not on file documented as of this encounter Plan of Treatment Upcoming Encounters Date Type Department Care Team (Late Contact Info) Description 06/08/2025 8:30 AM TUGGER OPERATOR Appointment [facility] MATTRESS RENOVATOR Mammography [address] [place] [address] Radha Brock MD [address] [place] [id number] documented as of this encounter Visit Diagnoses Not on filedocumented in this encounter Additional Health Concerns Infection Onset Date Last Indicated Resolved Time COVID-19 Rule Out 02/18/2021 02/18/2021 02/18/2021 4:07 PM CDT COVID-19 Rule Out 06/05/2021 06/05/2021 06/06/2021 8:02 AM TUGGER OPERATOR COVID-19 Rule Out 08/31/2021 08/31/2021 08/31/2021 1:35 AM TUGGER OPERATOR COVID-19 Rule Out 03/06/2022 03/06/2022 03/06/2022 9:42 PM CDT COVID-19 Rule Out 04/16/2022 04/16/2022 04/16/2022 5:15 AM CDT COVID-19 Rule Out 04/16/2022 04/16/2022 04/16/2022 10:56 PM CDT ESBL - Extended Spectrum Beta-lactamase 02/03/2023 02/03/2023 documented as of this encounter Care Teams Emergency Specialist Relationship Specialty Start Date End Date Radha Brock MD [address] [place] [address] PCP - General FAMILY PRACTICE 12/31/18 09/29/22 Radha Brock MD [address] [place] [address] PCP - General FAMILY PRACTICE 09/30/22 documented as of this encounter
--- OUTSIDE RECORDS SUMMARY | 2025-01-19 12:12 | XMS_ITS | Encounter Summary ---
Author Organization [facility] Address [facility] [place] [address] Care Team Providers Care Communication And Outreach Manager Name Role Phone Radha Brock MD Primary Care Provider [phone] Radha Brock MD Primary Care Provider [phone] Reason for Referral * Imaging (Routine) - Closed Specialty Diagnoses / Procedures Referred By Megan foreman Referred To Contact RADIOLOGY Diagnoses Congestive heart failure ([facility]) Elevated WBC count Shortness of breath Procedures USE ECHOCARDIOGRAM Nicol Monteiro FNP Referral ID Status Reason Start Date Expiration Date Visits Re quested Visits Authorized [id number] Closed 05/30/2020 06/29/2021 1 1 RPERSON ANESTHESIOLOGY Encounter Details Date Type Department Care Team (Late st Contact Info) Description 05/30/2020 Community Orders [facility] EPICCARE LINK Nicol Monteiro FNP Social History Tobacco Use Types Packs/Day Years Used Date Smoking Tobacco: Never Comments No Sex and Gender Information Value Date Recorded Sex Assigned at Female 07/27/2024 3:06 PM CHAIRPERSON ANESTHESIOLOGY Legal Sex Female 9:21 PM CDT Gender Identity Not on file Sexual Orientation Not on file COVID-19 Exposure Response Date Recorded In the last month, have you been in contact with someone who was confirmed or suspected to have Coronavirus / COVID-19? No / Unsure 05/30/2020 3:07 PM CHAIRPERSON ANESTHESIOLOGY documented as of this encounter Plan of Treatment Upcoming Encounters Date Type Department Care Team (Late st Contact Info) Description 06/08/2025 8:30 AM CHAIRPERSON ANESTHESIOLOGY Appointment [facility] [place] [facility] [address] [place] [address] Radha Brock MD [address] [place] [address] documented as of this encounter Results * (ABNORMAL) BASIC METABOLIC PANEL (06/11/2020 11:35 AM CHAIRPERSON ANESTHESIOLOGY) Pathologist [facility] SODIUM S/P/B 137 136 - 145 MMOL/L 06/11/2020 2:17 PM CHAIRPERSON ANESTHESIOLOGY [facility] POTASSIUM S/P/B 3.9 3.5 - 5.1 MMOL/L 06/11/2020 2:17 PM [facility] Comment:RECHECKED CHLORIDE S/P/B 108(H) 98 - 107 MMOL/L 06/11/2020 2:17 PM CHAIRPERSON ANESTHESIOLOGY [facility] CO2 23.0 21.0 - 32.0 MMOL/L 06/11/2020 2:17 PM [facility] GLUCOSE 279(H) 74 - 106 MG/DL 06/11/2020 2:17 PM [facility] Comment:RECHECKED BUN 38(H) 7 - 18 MG/DL 06/11/2020 2:17 PM CHAIRPERSON ANESTHESIOLOGY [facility] CREATININE S/P/B 2.21(H) 0.55 - 1.02 MG/DL 06/11/2020 2:17 PM [facility] CALCIUM S/P/B 8.2(L) 8.5 - 10.1 MG/DL 06/11/2020 2:17 PM [facility] ANION GAP 6.0 5.0 - 15.0 MMOL/L 06/11/2020 2:17 PM [facility] OSMOLALITY (CALC) 303 MOSM/KG 020 2:17 PM [facility] Comment:REFERENCE RANGE NOT ESTABLISHED EGFR NON-AFR. AMER. 21(L) >89 ML/MIN/1. 73 M2 06/11/2020 2:17 PM CHAIRPERSON ANESTHESIOLOGY [facility] EGFR AFR. AMER. 25(L) >89 ML/MIN/1. 73 M2 06/11/2020 2:17 PM CHAIRPERSON ANESTHESIOLOGY [facility] GFR NOTES GFR REFERENCE S: 06/11/2020 2:17 PM CHAIRPERSON ANESTHESIOLOGY [facility] Comment: THE ESTIMATED GFR IS CALCULATED [...] ml/min/1.73 m2 G5,KIDNEY FAILURE: <15 ml/min/1.73 m2 06/11/2020 11:3 5 AM CHAIRPERSON ANESTHESIOLOGY Nicol Monteiro [facility] F inal Result [facility] [address] [place] [address], * (ABNORMAL) CBC W/DIFF AUTOMATED (06/11/2020 11:35 AM CHAIRPERSON ANESTHESIOLOGY) WBC 8.9 4.6 - 9.1 x10'3/uL 06/11/2020 1:50 PM CHAIRPERSON ANESTHESIOLOGY [facility] RBC 3.00(L) 3.90 - 5.00 x10'6/uL 06/11/2020 1:50 PM CHAIRPERSON ANESTHESIOLOGY [facility] HGB 7.6(L) 11.8 - 14.7 G/DL 06/11/2020 1:50 PM CHAIRPERSON ANESTHESIOLOGY [facility] HCT 25.3(L) 36.3 - 45.2 % 06/11/2020 1:50 PM CHAIRPERSON ANESTHESIOLOGY [facility] MCV 84.3 80.0 - 98.0 FL 06/11/2020 1:50 PM CHAIRPERSON ANESTHESIOLOGY [facility] MCH 25.3(L) 26.8 - 32.1 PG 06/11/2020 1:50 PM CHAIRPERSON ANESTHESIOLOGY [facility] MCHC 30.0(L) 30.7 - 34.2 G/DL 06/11/2020 1:50 PM CHAIRPERSON ANESTHESIOLOGY [facility] RDW 18.7(H) 12.0 - 14.8 % 06/11/2020 1:50 PM CHAIRPERSON ANESTHESIOLOGY [facility] PLT 176 145 - 358 x10'3/uL 06/11/2020 1:50 PM [facility] MPV 9.4 8.8 - 12.3 FL 06/11/2020 1:50 PM CHAIRPERSON ANESTHESIOLOGY [facility] NRBC 0.0 % 06/11/2020 3:33 PM CHAIRPERSON ANESTHESIOLOGY [facility] BASOPHILS 0.7 % 06/11/2020 3:33 PM [facility] EOSINOPHILS 1.1 % 06/11/2020 3:33 PM [facility] MONOCYTES 6.2 % 06/11/2020 3:33 PM [facility]PERSON ANESTHESIOLOGY [facility] LYMPHOCYTES 14.4 % 06/11/2020 3:33 PM CHAIRPERSON ANESTHESIOLOGY [facility] SEG NEUTROPHILS 77.3 % 0 3:33 PM CHAIRPERSON ANESTHESIOLOGY [facility] IMMATURE GRANS % 0.3 % 06/11/20 20 3:33 PM [facility] ABS. NUCLEATED RBC'S 0.00 0.00 - 0.12 x10'3/uL 06/11/2020 3:33 PM [facility] ABS. BASOPHILS 0.06 0.01 - 0.09 x10'3/uL 06/11/2020 3:33 PM CHAIRPERSON ANESTHESIOLOGY [facility] ABS. EOSINOPHILS 0.10 0.03 - 0.45 x10'3/uL 06/11/2020 3:33 PM CHAIRPERSON ANESTHESIOLOGY [facility] ABS. MONOCYTES 0.55 0.30 - 0.80 x10'3/uL 06/11/2020 3:33 PM CHAIRPERSON ANESTHESIOLOGY [facility] ABS. LYMPHOCYTES 1.28 1.10 - 3.30 x10'3/uL 06/11/2020 3:33 PM CHAIRPERSON ANESTHESIOLOGY [facility] ABS. NEUTROPHILS 6.88(H) 2.30 - 5.70 x10'3/uL 06/11/2020 3:33 PM CHAIRPERSON ANESTHESIOLOGY [facility] ABS. IMMATURE GRANULOCYTES 0.03 0.00 - 0.09 x10'3/uL 06/11/2020 3:33 PM CHAIRPERSON ANESTHESIOLOGY [facility] RBC MORPHOLOGY 1+ 06/11/2020 3:33 PM CHAIRPERSON ANESTHESIOLOGY [facility] Comment: ANISOCYTOSIS 1+ POLYCHROMASIA 1+ BASOPHILIC STIPPLING 1+ OVALOCYTES 06/11/2020 11:3 5 AM CHAIRPERSON ANESTHESIOLOGY Nicol Monteiro [facility] F inal Result [facility] [address] [place] [address], * USE ECHOCARDIOGRAM (06/06/2020 10:03 AM CHAIRPERSON ANESTHESIOLOGY) Anatomical Region Laterality Modality Cardiac Echocardiogram 06/06/2020 11:3 6 AM CHAIRPERSON ANESTHESIOLOGY Narrative 06/06/2020 11:17 AM CHAIRPERSON ANESTHESIOLOGY Echocardiography Report Pat.Name: LEIDY VOSS Pat.ID: [id number] .Date: 06/06/2020 Refer.MD: Cindy Norris Exam Time: 11:36:00 AM Study Type:ECHO WITH CARDIAC DOPPLER COMP Height: 59in Weight: 143.7lb BSA: 1.6 m2 Age: 1 1945,74Y Sex: FEMALE BP: 136/57 Sonogrphr: Katty Yarbrough RCS Pat. Stat.:Outpatient Room: OP CPT - 4: [id number] Reason for Study: Congestive heart failure, Shortness of breath, ELEVATED WHITE COUNT, (FER EPIQ 7 [id number]; X51 PROBE BIJZRP) Procedures: 2D, M-mode, Doppler, Color Flow ++++++++++++++++++++++++++++++++++++ SUMMARY: ++++++++++++++++++++++++++++++++++++ The left ventricular size [...] RA: The right atrial size is normal. LIANET: No evidence of pericardial effusion. AO: Normal [...] regurgitation. No evidence of tricuspid valve stenosis. ++++++++++++++++++++++++++++++++++++ MEASUREMENTS: ++++++++++++++++++++++++++++++++++++ 2D LVOT LVOT 1.9 cm LVOTArea 2.84 cm2 LA Biplane LAVol I BP 37 ml/m2 Left Ventricle LVEDV BP 80.7 ml LV EF BP 69.3 % LVESV BP 24.8 ml LV SV BP 55.9 ml LV QLab aCMQ Left Ventricula 121 ml Left Ventricula 43.5 ml Left Ventricula 88.6 ml LVEF 57.4 % Left Ventricula 105 ml LVEF 60.2 % Left Ventricula 51.7 ml LVEF 58.6 % Left Ventricula 35.3 ml Myocardial Wall QLab aCMQ Strain peak beverly -19 % Strain peak beverly -18 % Strain peak beverly -17 % Strain peak beverly -18 % RA Single Plane Right Atrium MO 0.89 cm Right Atrium Sy 20 ml Right Atrium Sy 5.53 cm Right Atrium Sy 12.5 ml/m2 Right Atrium Sy 11.7 cm2 Right Ventricle Right Ventricul 15.6 cm2 MMODE Left Ventricle LVIDd 6.27 cm (zsc 3.6)* LV%fs 35.7 % (28-41) LVIDs 4.03 cm (zsc 2.8)* LV EF 64.2 % (45-90) LVPW LVPWd 1.18 cm (zsc 3.1)* Ventricular Septum IVSd 1.26 cm (zsc 3.4)* Ratios IVS LA/Ao 2.29 (0.87-1.1)* Left Atrium LAID 5.5 cm (zsc 4.9)* Aorta Ao Rt 2.4 cm (zsc -0.3) TA Tricuspid Annul 1.98 cm DOPPLER LVOT LVOTpkPG 4 mmHg LVOTmnPG 2 mmHg LVOTpkVel 100 cm/s (70-110) LVOT SV 70 ml LVOT TVI 24.5 cm LVOT CO 73.3 ml/s Pulmonary Veins PVnpkVeld 85.5 cm/s PVnVs/Vd 0.6 PVnpkVels 54.7 cm/s AV Forward Flow AV TVI 42.8 cm AV pkPG 13 mmHg AV pkVel 179 cm/s (100-170)* Area (TVI) 1.63 cm2 (3-5)* AV mnPG 6 mmHg Area (Merrill) 1.59 cm2 (3-5)* Mitral Valve MV pkVel 181 cm/s MV Forward Flow MV DeTm 155 ms MV pkPG 13 mmHg MVA P1/2t 3.01 cm2 (4-6)* MV mnVel 79.6 cm/s MV P1/2t 73 ms (30-60)+* MV E/A 2.1 MV mnPG 3 mmHg MV pkE 172 cm/s (60-130)* MV TVI 48.3 cm (10-13)+* MV pkA 83.2 cm/s MV Regurg Flow MV TVI 197 cm MV pkPG 122 mmHg MV mnPG 88 mmHg MV pkVel 552 cm/s (60-130)+* MV mnVel 445 cm/s PV Forward Flow PV TVI 33.1 cm PV mnVel 89 cm/s PV pkVel 139 cm/s (60-90)* PV mnPG 4 mmHg PV pkPG 8 mmHg PV Regurg Flow PV pkVel 132 cm/s TV Regurg Flow TV pkPG 50 mmHg TV pkVel 354 cm/s (30-70)* TV Forward Flow TV E/A 0.9 TV pkA 85.9 cm/s TV pkE 74.4 cm/s Lat E' Lat e 6.31 cm/s Lat E/E' Lat E/e 27.3 Med E' Med e 5.98 cm/s Med E/E' Med E/e 28.8 Aortic Valve Aortic Valve Ar 1.02 Aortic Valve Ve 0.56 Lat MA LV Peak Metz Ti 6.53 cm/s Left Ventricle 1 Left Ventricle LV IVRT 58 ms Med MA LV Peak Metz Ti 4.68 cm/s Left Ventricle 1.3 PV Regurgitant Flow Peak Gradient ( 7 mmHg Right Atrium Cormier's Disk 20 Signed 06/06/2020 11:17 AM Adriel Hand M.D. Procedure Note Adriel Hand MD - 06/06/2020 Echocardiography Report Pat.Name: LEIDY VOSS Pat.ID: [id number] St.Date: 06/06/2020 Refer.MD: Cindy Norris [facility] Exam Time: 11:36:00 AM Study Type:ECHO WITH CARDIAC DOPPLER COMP Height: 59in Weight: 143.7lb BSA: 1.6 m2 Age: 1 1945,74Y Sex: FEMALE BP: 136/57 Sonogrphr: Katty Yarbrough Pat. Stat.:Outpatient Room: OP CPT - 4: [id number] Reason for Study: Congestive heart failure, Shortness of breath, ELEVATED WHITE COUNT, (FER EPIQ 7 [id number]; X51 PROBE BIJZRP) Procedures: 2D, M-mode, Doppler, Color Flow ++++++++++++++++++++++++++++++++++++ SUMMARY: ++++++++++++++++++++++++++++++++++++ The left ventricular size [...] RA: The right atrial size is normal. LIANET: No evidence of pericardial effusion. AO: Normal [...] regurgitation. No evidence of tricuspid valve stenosis. ++++++++++++++++++++++++++++++++++++ MEASUREMENTS: ++++++++++++++++++++++++++++++++++++ 2D LVOT LVOT 1.9 cm LVOTArea 2.84 cm2 LA Biplane LAVol I BP 37 ml/m2 Left Ventricle LVEDV BP 80.7 ml LV EF BP 69.3 % LVESV BP 24.8 ml LV SV BP 55.9 ml LV QLab aCMQ Left Ventricula 121 ml Left Ventricula 43.5 ml Left Ventricula 88.6 ml LVEF 57.4 % Left Ventricula 105 ml LVEF 60.2 % Left Ventricula 51.7 ml LVEF 58.6 % Left Ventricula 35.3 ml Myocardial Wall QLab aCMQ Strain peak beverly -19 % Strain peak beverly -18 % Strain peak beverly -17 % Strain peak beverly -18 % RA Single Plane Right Atrium MO 0.89 cm Right Atrium Sy 20 ml Right Atrium Sy 5.53 cm Right Atrium Sy 12.5 ml/m2 Right Atrium Sy 11.7 cm2 Right Ventricle Right Ventricul 15.6 cm2 MMODE Left Ventricle LVIDd 6.27 cm (zsc 3.6)* LV%fs 35.7 % (28-41) LVIDs 4.03 cm (zsc 2.8)* LV EF 64.2 % (45-90) LVPW LVPWd 1.18 cm (zsc 3.1)* Ventricular Septum IVSd 1.26 cm (zsc 3.4)* Ratios IVS LA/Ao 2.29 (0.87-1.1)* Left Atrium LAID 5.5 cm (zsc 4.9)* Aorta Ao Rt 2.4 cm (zsc -0.3) TA Tricuspid Annul 1.98 cm DOPPLER LVOT LVOTpkPG 4 mmHg LVOTmnPG 2 mmHg LVOTpkVel 100 cm/s (70-110) LVOT SV 70 ml LVOT TVI 24.5 cm LVOT CO 73.3 ml/s Pulmonary Veins PVnpkVeld 85.5 cm/s PVnVs/Vd 0.6 PVnpkVels 54.7 cm/s AV Forward Flow AV TVI 42.8 cm AV pkPG 13 mmHg AV pkVel 179 cm/s (100-170)* Area (TVI) 1.63 cm2 (3-5)* AV mnPG 6 mmHg Area (Merrill) 1.59 cm2 (3-5)* Mitral Valve MV pkVel 181 cm/s MV Forward Flow MV DeTm 155 ms MV pkPG 13 mmHg MVA P1/2t 3.01 cm2 (4-6)* MV mnVel 79.6 cm/s MV P1/2t 73 ms (30-60)+* MV E/A 2.1 MV mnPG 3 mmHg MV pkE 172 cm/s (60-130)* MV TVI 48.3 cm (10-13)+* MV pkA 83.2 cm/s MV Regurg Flow MV TVI 197 cm MV pkPG 122 mmHg MV mnPG 88 mmHg MV pkVel 552 cm/s (60-130)+* MV mnVel 445 cm/s PV Forward Flow PV TVI 33.1 cm PV mnVel 89 cm/s PV pkVel 139 cm/s (60-90)* PV mnPG 4 mmHg PV pkPG 8 mmHg PV Regurg Flow PV pkVel 132 cm/s TV Regurg Flow TV pkPG 50 mmHg TV pkVel 354 cm/s (30-70)* TV Forward Flow TV E/A 0.9 TV pkA 85.9 cm/s TV pkE 74.4 cm/s Lat E' Lat e 6.31 cm/s Lat E/E' Lat E/e 27.3 Med E' Med e 5.98 cm/s Med E/E' Med E/e 28.8 Aortic Valve Aortic Valve Ar 1.02 Aortic Valve Ve 0.56 Lat MA LV Peak Metz Ti 6.53 cm/s Left Ventricle 1 Left Ventricle LV IVRT 58 ms Med MA LV Peak Metz Ti 4.68 cm/s Left Ventricle 1.3 PV Regurgitant Flow Peak Gradient ( 7 mmHg Right Atrium Cormier's Disk 20 Signed 06/06/2020 11:17 AM Adriel Hand M.D. Nicol Monteiro [facility] INSTRUMENT MECH[employer]IC ECHO F inal Result * XR CHEST PA+LAT (05/30/2020 3:07 PM CHAIRPERSON ANESTHESIOLOGY) Anatomical Region Laterality Modality Chest Radiographic Luisana ging 05/30/2020 4:26 PM CHAIRPERSON ANESTHESIOLOGY Impressions 05/30/2020 4:33 PM CHAIRPERSON ANESTHESIOLOGY IMPRESSION: 1. Cardiomegaly. 2. Bilateral pulmonary opacities. Interpreted By: Carlos Singleton DO, 05/30/2020 4:26 PM Narrative 05/30/2020 4:33 PM CHAIRPERSON ANESTHESIOLOGY EXAMINATION: X-ray chest HISTORY: Cough. Leukocytosis. COMPARISON: Chest x-ray 06/16/2017. TECHNIQUE: PA and lateral view chest. FINDINGS: The trachea is midline. The heart is enlarged. There are bilateral mid and lower lung pulmonary opacities. This appearance can be seen with pulmonary edema. A bilateral viral pneumonia, such as Covid-19 pneumonia, can produce this appearance and is not excluded. No evidence of pleural effusion or pneumothorax. There are median sternotomy wires. There is atherosclerotic calcification of the aorta. Procedure Note Carlos Singleton DO - 05/30/2020 EXAMINATION: X-ray chest HISTORY: Cough. Leukocytosis. COMPARISON: Chest x-ray 06/16/2017. TECHNIQUE: PA and lateral view chest. FINDINGS: The trachea is midline. The heart is enlarged. There are bilateral midand lower lung pulmonary opacities. This appearance can be seen withpulmonary edema. A bilateral viral pneumonia, such as Covid-19 pneumonia, canproduce this appearance and is not excluded. No evidence of pleural effusion or pneumothorax. There are median sternotomy wires. There isatherosclerotic calcification of the aorta. IMPRESSION: 1. Cardiomegaly. 2. Bilateral pulmonary opacities. Interpreted By: Carlos Singleton DO, 05/30/2020 4:26 PM Nicol Monteior SURGICAL INSTRUMENT MECHANIC GENERAL IMAGING F inal Result documented in this encounter Visit Diagnoses Diagnosis Elevated WBC count- Primary Leukocytosis, unspecified Shortness of breath Anemia Anemia, unspecified Congestive heart failure (CMS/HCC HHS/HCC) Congestive heart failure, unspecified Elevated WBC count Leukocytosis, unspecified Shortness of breath Congestive heart failure (CMS/HCC HHS/HCC) Congestive heart failure, unspecified Elevated WBC count Leukocytosis, unspecified Shortness of breath documented in this encounter Additional Health Concerns Infection Onset Date Last Indicated Resolved Time COVID-19 Rule Out 02/18/2021 02/18/2021 02/18/2021 4:07 PM CDT COVID-19 Rule Out 06/05/2021 06/05/2021 06/06/2021 8:02 AM CHAIRPERSON ANESTHESIOLOGY COVID-19 Rule Out 08/31/2021 08/31/2021 08/31/2021 1:35 AM CHAIRPERSON ANESTHESIOLOGY COVID-19 Rule Out 03/06/2022 03/06/2022 03/06/2022 9:42 PM CDT COVID-19 Rule Out 04/16/2022 04/16/2022 04/16/2022 5:15 AM CDT COVID-19 Rule Out 04/16/2022 04/16/2022 04/16/2022 10:56 PM CDT ESBL - Extended Spectrum Beta-lactamase 02/03/2023 02/03/2023 documented as of this encounter Care Teams Communication And Outreach Manager Relationship Specialty Start Date End Date Radha Brock MD [address] [place] [address] PCP - General FAMILY PRACTICE 12/31/18 09/29/22 Radha Brock MD [address] [place] [address] PCP - General FAMILY PRACTICE 09/30/22 documented as of this encounter
--- NOTE | 2025-01-19 12:33 | ED.NEUROSD ---
HPI - Neuro Symptoms/Deficit General Chief Complaint: Suspected CVA Stated Complaint: possibly TIA on thursday? Time Seen by Provider: 01/19/25 12:04 History of Present Illness HPI Narrative: Patient 79-year-old female presents emergency department with chief complaint of possible TIA. Patient reports that on Thursday she had an episode where she could not form words the patient reports no facial droop denies weakness on 1 side of her body the patient states symptoms lasted for a few seconds and then resolved the patient states that she takes aspirin and also takes Plavix reports she has a peritoneal dialysis patient the patient reports that she saw her railroad dining car steward/stewardess today who recommended that she come to the emergency department for a CT scan. Related Data Home Medications ?Medication ?Instructions ?Recorded ?Confirmed ?Last Taken ?Type allopurinol 300 mg tablet 100 mg PO DAILY 08/31/21 07/17/24 07/16/24 09:30 History atorvastatin 40 mg tablet 40 mg PO HS 08/31/21 07/17/24 07/15/24 19:30 History carvedilol 25 mg tablet 25 mg PO BID 08/31/21 07/17/24 07/16/24 09:30 History hydralazine 100 mg tablet 100 mg PO TID 08/31/21 07/17/24 07/16/24 12:00 History clopidogrel 75 mg tablet 75 mg PO DAILY 01/03/22 07/17/24 07/16/24 09:30 History aspirin 81 mg capsule 81 mg PO HS 04/26/22 07/17/24 07/15/24 19:30 History isosorbide mononitrate 30 mg 30 mg PO BID 04/26/22 07/17/24 07/16/24 09:30 History tablet,extended release 24 hr magnesium oxide 400 mg PO BID 04/26/22 07/17/24 07/16/24 09:30 History nitroglycerin 0.4 mg sublingual 0.4 mg sublingual Q5MIN PRN Chest 04/26/22 07/17/24 Unknown History tablet Pain amlodipine 10 mg tablet 10 mg PO DAILY 05/17/22 07/17/24 07/16/24 09:30 History glimepiride 4 mg tablet 4 mg PO BID 05/17/22 07/17/24 07/16/24 09:30 History pantoprazole 40 mg tablet,delayed 40 mg PO DAILY 05/17/22 07/17/24 07/16/24 09:30 History release albuterol sulfate 90 mcg/actuation 2 puff inhalation Q6H PRN Cough or 07/17/24 07/17/24 07/16/24 21:00 History aerosol inhaler SOB. azithromycin 250 mg tablet 250 mg PO DAILY 07/17/24 07/17/24 07/16/24 09:30 History blood sugar diagnostic (True 07/17/24 07/17/24 Unknown History Metrix Glucose Test Strip) cholecalciferol (vitamin D3) 50 6,000 unit PO DAILY 07/17/24 07/17/24 07/16/24 09:30 History mcg (2,000 unit) capsule (Vitamin D3) furosemide 80 mg tablet 80 mg PO BID 07/17/24 07/17/24 07/16/24 09:30 History lancets 30 gauge (Ultra Thin 07/17/24 07/17/24 Unknown History Lancets) potassium chloride 10 mEq 10 meq PO DAILY 07/17/24 07/17/24 07/16/24 09:30 History tablet,extended release vitamin B comp no.3-folic acid 1 1 tablet PO DAILY 07/17/24 07/17/24 07/16/24 09:30 History mg-vit C 60 mg-biotin 300 mcg tablet ([facility]) Allergies Allergy/AdvReac Type Severity Reaction Status Date / Time metronidazole (From Flagyl) Allergy Unknown Unknown Verified 01/19/25 11:46 Penicillins Allergy Unknown ITCHING Verified 01/19/25 11:46 tramadol Allergy Unknown HIVES Verified 01/19/25 11:46 hydrocodone AdvReac Mild ITCHING Verified 01/19/25 11:46 triamterene AdvReac Mild ITCH Verified 01/19/25 11:46 carbamazepine AdvReac Unknown Unknown Verified 01/19/25 11:46 ciprofloxacin AdvReac Unknown Dizziness Verified 01/19/25 11:46 gabapentin AdvReac Unknown Diarrhea Verified 01/19/25 11:46 iohexol (From contrast - CT, AdvReac Unknown Other Verified 01/19/25 11:46 X-RAY) labetalol AdvReac Unknown Dizziness Verified 01/19/25 11:46 Sulfa (Sulfonamide AdvReac Unknown Unknown Verified 01/19/25 11:46 Antibiotics) terbinafine AdvReac Unknown Other Verified 01/19/25 11:46 clindamycin AdvReac Diarrhea Verified 01/19/25 11:46 Review of Systems Review of Systems: A 10 system review of systems was completed on the patient and is negative except for what is stated in the HPI. Nursing and ancillary documentation was reviewed. 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 Obstructive sleep apnea History of adenomatous polyp of colon Obesity PUD (peptic ulcer disease) Heart attack 2011 Congestive heart failure MASSIMO (acute kidney injury) Diabetes Surgical History Surgical History Hx of CABG 2012 with gresham to the Left anterior descending, SVG to the diagonal, SVG to the ramus and SVG to the PDA) H/O shoulder surgery on the right Hx of cataract extraction History of bladder surgery History of appendectomy History of rectal polypectomy H/O heart artery stent 2 H/O right heart catheterization 2 History of tonsillectomy History of cholecystectomy H/O total hysterectomy Family History Family History Mother Diabetes mellitus Hypertension Acute myocardial infarction Father Cancer of bone Sibling Social History Social History Social History: the patient lives with her who is the durable power estate attorney for healthcare. 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 She is a lifelong nonsmoker. She does not use any alcohol marijuana or illicit drugs. Code status full code Smoking status: Never smoker Second hand tobacco smoke exposure: Yes Alcohol intake: never Substance use: never Substance use type: does not use Do You Feel Safe in your Home?: Yes Lack of Transportation: No Lack of Food: Never True Current Housing: I Have Housing Concerned About Future Housing: No Difficulty Paying Gas/Electric Bills: No Difficulty Paying for Meds: No Currently Unemployed: No Education: High School Diploma/GED Difficulty w/ Childcare or Family Care: No Living arrangements: with family Gender identity (if verbalized by the patient): Female Spiritual care concerns: No Exam Narrative: GENERAL: Well-appearing, well-nourished, and in no acute distress. HEAD: Normocephalic, atraumatic. EYES: PERRLA and EOMI. ENT: Nares clear, no rhinorrhea or epistaxis. Mucous membranes moist. NECK: Supple. CHEST: Clear to auscultation. No respiratory distress. HEART: Regular rate and rhythm. No murmur heard. Normal peripheral pulses. ABDOMEN: Soft, nontender, nondistended, normal active bowel sounds. Peritoneal dialysis catheter in place EXTREMITIES: Normal range of motion. No edema. SKIN: Warm, dry, no rash. NEURO: No focal deficits. Alert and oriented x3. PSYCH: Normal mood and affect. Course Vital Signs Vital signs: Vital Signs Temperature 36.6 C 01/19/25 11:43 Pulse Rate 70 01/19/25 11:43 Respiratory Rate 16 01/19/25 11:43 Blood Pressure 138/41 L 01/19/25 11:43 Pulse Oximetry 97 01/19/25 11:43 Oxygen Delivery Room Air 01/19/25 11:43 Temperature 36.6 C 01/19/25 11:43 Pulse Rate 70 01/19/25 11:43 Respiratory Rate 16 01/19/25 11:43 Blood Pressure 138/41 L 01/19/25 11:43 Pulse Oximetry 97 01/19/25 11:43 Oxygen Delivery Room Air 01/19/25 11:43 MDM - Neuro Symptoms/Deficit MDM Narrative Medical decision making narrative: Differential diagnosis includes TIA, CVA Patient had outpatient labs her symptoms occurred a week ago patient reports that she currently is asymptomatic patient is already on anti-platelet therapy CT head showed no acute abnormality Discharge Plan Discharge Clinical Impression: Brain TIA Patient Disposition: Home Condition: Stable Instructions: Antibiotic Form, Transient Ischemic Attack (ED) Additional Instructions: Your symptoms are consistent with a TIA but your CT scan shows no acute abnormality. Please continue your aspirin and Plavix please follow-up with your doctors as you may need to have an MRI as an outpatient of your brain Patient Language: German Prescriptions: No Action clopidogrel 75 mg tablet 75 mg PO DAILY atorvastatin 40 mg tablet 40 mg PO HS carvedilol 25 mg tablet 25 mg PO BID hydralazine 100 mg tablet 100 mg PO TID allopurinol 300 mg tablet 100 mg PO DAILY isosorbide mononitrate 30 mg tablet extended release 24 hr 30 mg PO BID nitroglycerin 0.4 mg tablet, sublingual 0.4 mg sublingual Q5MIN PRN (Reason: Chest Pain) aspirin 81 mg Capsule 81 mg PO HS magnesium oxide 400 mg PO BID amlodipine 10 mg tablet 10 mg PO DAILY pantoprazole 40 mg tablet,delayed release (DR/EC) 40 mg PO DAILY glimepiride 4 mg tablet 4 mg PO BID furosemide 80 mg tablet 80 mg PO BID Rx Instructions: Pt takes 100mg PO BID. cholecalciferol (vitamin D3) [Vitamin D3] 50 mcg (2,000 unit) capsule 6,000 unit PO DAILY potassium chloride 10 mEq tablet extended release 10 meq PO DAILY albuterol sulfate 90 mcg/actuation HFA aerosol inhaler 2 puff INHALATION Q6H PRN (Reason: Cough or SOB.) azithromycin 250 mg tablet 250 mg PO DAILY Rx Instructions: Take 250mg PO daily for 5 days. Last dose would be on 07/17/24. (DME) True Metrix Glucose Test Strip Strip MISCELLANEOUS [facility] 1-60-300 mg-mg-mcg tablet 1 tablet PO DAILY (DME) lancets [Ultra Thin Lancets] 30 gauge mis MISCELLANEOUS Follow-up/Referrals: PHYSICIAN NOT ON STAFF,NONSTAFF [Primary Care Provider] - Time of Disposition: 12:36
[2025-01-19 13:01] VITALS: BP 148/72; PULSE 74; RESP 16; TEMP 36.6; O2SAT 98
== END 2025-01-19 13:02 | disposition home or self-care (01) ==
PROVIDERS: Emergency Provider Emergency Medicine
DX: G45.9 Transient cerebral ischemic attack, unspecified (principal); I25.810 Atherosclerosis of coronary artery bypass graft(s) without angina pectoris; I25.2 Old myocardial infarction; I13.2 Hypertensive heart and chronic kidney disease with heart failure and with stage 5 chronic kidney disease, or end stage renal disease; E11.22 Type 2 diabetes mellitus with diabetic chronic kidney disease; N18.6 End stage renal disease; Z99.2 Dependence on renal dialysis; I50.9 Heart failure, unspecified; G47.33 Obstructive sleep apnea (adult) (pediatric); Z87.11 Personal history of peptic ulcer disease; Z86.0101 Personal history of adenomatous and serrated colon polyps; Z87.01 Personal history of pneumonia (recurrent); Z95.1 Presence of aortocoronary bypass graft; Z95.5 Presence of coronary angioplasty implant and graft; Z98.49 Cataract extraction status, unspecified eye; Z90.49 Acquired absence of other specified parts of digestive tract; Z90.710 Acquired absence of both cervix and uterus; Z77.22 Contact with and (suspected) exposure to environmental tobacco smoke (acute) (chronic); Z79.899 Other long term (current) drug therapy; Z79.82 Long term (current) use of aspirin; Z79.02 Long term (current) use of antithrombotics/antiplatelets; Z79.84 Long term (current) use of oral hypoglycemic drugs
CPT/HCPCS: 70450; 99284

== ENCOUNTER 2025-04-03 12:19 | Outpatient (CLI) | payer MEDICARE, SELFPAY ==
--- OUTSIDE RECORDS SUMMARY | 2016-09-04 08:00 | XMS_ITS | Continuity of Care Document ---
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 [address], [place], [id number], [place]. tel:[phone] Referring Provider: Daren Paz, [address] , [place], [address]. tel:[phone] Family History Family Member Type Diagnosis Age At Onset No Information Payers Payer name Insurance type Covered green party ID Authoriza tion(s) MEDICARE MB [id number] BCBS INACTIVE OUT OF STATE [id number] Social History Type Description Quantity Date Captured Comments Sex Female Smoking Status No Information Chief Complaint And Reason For Visit No Information Reason For Referral Reason For Referral No Information History Of Present Illness Encounter Date Complaint History Of Prese nt Illness No Information Functional Status Date Functional Assessmen t No Information Instructions Date Instruction Additional Infor mation No Information Assessments Type Assessment Date No Information Patient Care Teams Name Effective Dates (start - stop) Status Members No Information
--- OUTSIDE RECORDS SUMMARY | 2025-03-21 04:30 | XMS_ITS ---
Author Organization [facility] Address [address] [place] [address] Care Team Providers Care Hand Sewer Shoes Name Role Phone Radha Brock Primary Care Provider Unavailab Daren Rosales Unavailable [phone] ALLERGIES Allergen (clinical drug ingredient) Drug/Non Drug Allergy documented on EMR Reaction Allergy Type Onset Date Status gabapentin Gabapentin Unknown Drug Allergy Activ e clindamycin Clindamycin Unknown Drug Allergy Act kassidy Penicillin (Allergy only) Unknown Drug Allergy Active tramadol Ultram Unknown Drug Allergy Active hydrochlorothiazide / triamterene Triamterene-HCTZ Unknown Drug Allergy Active Terbinafine Unknown Drug Allergy Activ e labetalol Labetalol HCl Unknown Drug Allergy Act kassidy Hydrocodone Bitartrate Unknown Drug Allergy Active ciprofloxacin Cipro Unknown Drug Allergy Act kassidy carbamazepine Carbamazepine Unknown Drug Allergy Active Substance with sulfonamide structure and antibacterial mechanism of action (substance) Sulfa medications (uncoded) Unknown Allergy Active RESULTS Component Value Reference Range Notes X ray : Cervical Spine 7 vie ws, AP, Lateral, Swimmers, Obliques, Flexion and Extension Reviewed date:03/21/2025 10:37:49 AM Interpretation: Performing Lab: Notes/Report: REASON FOR REFERRAL Reason Cervical RFA Eval Diagnosis 1 Cervical radiculopat hy (M54.12) Referral Organization [facility] Referring Provider First Name Daren Referring Provider Last Name Brandi Referring Provider Speciality Orthopedic Surgery Referred Provider Roger Riddle Referred Provider Specialty Physical The rapy Referral Priority Routine REASON FOR VISIT neck MEDICATIONS Medication SIG (Take, Route, Frequency, Duration) Notes Start Date End Date Status Omeprazole Not-Takin g oxyCODONE-Acetaminophen 5-325 MG 1 tablet as needed Orally every 6 hrs for 7 days 05/28/2021 Not-Taking Furosemide Active Terazosin HCl Not-Ta nadeem Florajen3 Not-Taking Magnesium Not-Taking Glimepiride Not-Taki ng Carvedilol Active amLODIPine Besylate Active Aspirin Not-Taking hydrALAZINE HCl Not- Taking Allopurinol Active Vitamin D Not-Taking Calcium Active Atorvastatin Calcium Active Isosorb Dinitrate-hydrALAZINE Active Pantoprazole Sodium Active Plavix Active Nitroglycerin Active Vitamin D3 Active Repaglinide Active Lisinopril Active Dialyvite Active Nabumetone Not-Takin g SOCIAL HISTORY Tobacco Use: Social History Observation Description Date Details (start date - stop date) Never Smoker NA - NA Sex Assigned At : Social History Observation Description Sex Assigned At Unknown Tobacco Use/Smoking Question Answer Notes Are you a nonsmoker PROBLEMS Problem Type ICD Code Onset Dates Problem Status W/U Status Risk SNOMED Code Notes Problem Neck pain (M54.2) Active confirmed Neck pain (47353798) VITAL SIGNS BMI 26.86 kg/m2 03/21/2025 Height 59 in 03/21/2025 Weight 133 lbs 03/21/2025 Encounters Encounter Location Date Provider Diagnosis [facility] [address] [address] 03/21/2025 Daren Paz Neck pain M54.2 ASSESSMENTS Encounter Date Diagnosis Assessment Notes Treatment Notes Treatment Clinical Notes 03/21/2025 Neck pain (ICD-10 - M54.2) PLAN OF TREATMENT Referrals Referral Date Details Cervical RFA Roger Lindquist Progress Notes * Examination Category Sub-Category Detail Notes X-Ray CERVICAL SPINE X-RAY: Seven views of the cervical spine were obtained today. They demonstrate moderate to severe disc space narrowing from C3 to 7 MRI Imaging Studies CERVICAL SPINE MRI: MRI of the cervical spine from 02/03/2025 demonstrates possible auto fusion of the C3-4 facet joints. There is moderate bilateral foraminal stenosis at C4-5. There is multilevel disc degeneration Consultation Request Notes Referral Date Referring Provider Referred Provider Not karey 03/21/2025 Daren Paz Chad Cervical RFA E beverly
--- OUTSIDE RECORDS SUMMARY | 2025-03-21 09:00 | XMS_ITS ---
Author Organization [facility] Address [address] [facility] [address] [place] [address] Care Team Providers Care Day Camp Unit Leader Name Role Phone Delmy Radha Primary Care Provider Unavailab Daren Rosales Unavailable [phone] REASON FOR VISIT neck Encounters Encounter Location Date Provider Diagnosis [facility] [address] [place] [address] 03/21/2025 Daren Paz PLAN OF TREATMENT No Information
--- NOTE | ~2025-04-03 | XR_ITS ---
Abdominal radiograph(s) INDICATION: Poorly functioning dialysis catheter COMPARISON: CT abdomen and pelvis 01/05/2023 TECHNIQUE: 2 views supine AP abdomen FINDINGS: Peritoneal dialysis catheter with coil tip in right lower quadrant. Mild scattered colonic stool. Small bowel loops not well seen. No evidence of organomegaly. No abnormal abdominal calcifications. No acute bony abnormality. Aortoiliac and mesenteric atherosclerotic disease. IMPRESSION: 1. No acute findings. 2. PD dialysis catheter with coil tip in right lower quadrant. Reviewed, dictated and finalized at location R.
--- OUTSIDE RECORDS SUMMARY | 2025-04-03 12:25 | XMS_ITS | Encounter Summary ---
Author Organization [facility] Address [address] [place] [address] Care Team Providers Care Supervisor Brooder Farm Name Role Phone Radha Brock MD Primary Care Provider [phone] Radha Brock MD Primary Care Provider [phone] Reason for Referral * Imaging (Routine) - Closed Specialty Diagnoses / Procedures Referred By Megan foreman Referred To Contact RADIOLOGY Diagnoses Congestive heart failure ([facility]) Elevated WBC count Shortness of breath Procedures USE ECHOCARDIOGRAM Nicol Monteiro FNP Referral ID Status Reason Start Date Expiration Date Visits Re quested Visits Authorized [id number] Closed 05/30/2020 06/29/2021 1 1 N RESOURCES OPERATIONS SPECIALIST Encounter Details Date Type Department Care Team (Late st Contact Info) Description 05/30/2020 Community Orders [facility] Nicol Monteiro FNP Social History Tobacco Use Types Packs/Day Years Used Date Smoking Tobacco: Never Comments No Sex and Gender Information Value Date Recorded Sex Assigned at Female 07/27/2024 3:06 PM HUMAN RESOURCES OPERATIONS SPECIALIST Legal Sex Female 9:21 PM CDT Gender Identity Not on file Sexual Orientation Not on file COVID-19 Exposure Response Date Recorded In the last month, have you been in contact with someone who was confirmed or suspected to have Coronavirus / COVID-19? No / Unsure 05/30/2020 3:07 PM HUMAN RESOURCES OPERATIONS SPECIALIST documented as of this encounter Plan of Treatment Upcoming Encounters Date Type Department Care Team (Late st Contact Info) Description 06/08/2025 8:30 AM HUMAN RESOURCES OPERATIONS SPECIALIST Appointment [facility] INTERIOR DESIGN INSTRUCTOR Mammography [address] [place] [address] Radha Brock MD [address] [place] [address] documented as of this encounter Results * (ABNORMAL) BASIC METABOLIC PANEL (06/11/2020 11:35 AM HUMAN RESOURCES OPERATIONS SPECIALIST) SODIUM S/P/B 137 136 - 145 MMOL/L 06/11/2020 2:17 PM [facility] POTASSIUM S/P/B 3.9 3.5 - 5.1 MMOL/L 06/11/2020 2:17 PM [facility] Comment:RECHECKED CHLORIDE S/P/B 108(H) 98 - 107 MMOL/L 06/11/2020 2:17 PM [facility] CO2 23.0 21.0 - 32.0 MMOL/L 06/11/2020 2:17 PM [facility] GLUCOSE 279(H) 74 - 106 MG/DL 06/11/2020 2:17 PM [facility] Comment:RECHECKED BUN 38(H) 7 - 18 MG/DL 06/11/2020 2:17 PM [facility] CREATININE S/P/B 2.21(H) 0.55 - 1.02 MG/DL 06/11/2020 2:17 PM [facility] CALCIUM S/P/B 8.2(L) 8.5 - 10.1 MG/DL 06/11/2020 2:17 PM [facility] ANION GAP 6.0 5.0 - 15.0 MMOL/L 06/11/2020 2:17 PM [facility] OSMOLALITY (CALC) 303 MOSM/KG 020 2:17 PM HUMAN RESOURCES OPERATIONS SPECIALIST [facility] Comment:REFERENCE RANGE NOT ESTABLISHED EGFR NON-AFR. AMER. 21(L) >89 ML/MIN/1. 73 M2 06/11/2020 2:17 PM HUMAN RESOURCES OPERATIONS SPECIALIST [facility] EGFR AFR. AMER. 25(L) >89 ML/MIN/1. 73 M2 06/11/2020 2:17 PM HUMAN RESOURCES OPERATIONS SPECIALIST [facility] GFR NOTES GFR REFERENCE S: 06/11/2020 2:17 PM [facility] Comment: THE ESTIMATED GFR IS [...] <15 ml/min/1.73 m2 06/11/2020 11:3 5 AM HUMAN RESOURCES OPERATIONS SPECIALIST Nicol Monteiro [facility] F inal Result [facility] [address] [place] [address], * (ABNORMAL) CBC W/DIFF AUTOMATED (06/11/2020 11:35 AM HUMAN RESOURCES OPERATIONS SPECIALIST) WBC 8.9 4.6 - 9.1 x10'3/uL 06/11/2020 1:50 PM HUMAN RESOURCES OPERATIONS SPECIALIST [facility] RBC 3.00(L) 3.90 - 5.00 x10'6/uL 06/11/2020 1:50 PM HUMAN RESOURCES OPERATIONS SPECIALIST [facility] HGB 7.6(L) 11.8 - 14.7 G/DL 06/11/2020 1:50 PM HUMAN RESOURCES OPERATIONS SPECIALIST [facility] HCT 25.3(L) 36.3 - 45.2 % 06/11/2020 1:50 PM [facility] MCV 84.3 80.0 - 98.0 FL 06/11/2020 1:50 PM [facility] MCH 25.3(L) 26.8 - 32.1 PG 06/11/2020 1:50 PM HUMAN RESOURCES OPERATIONS SPECIALIST [facility] MCHC 30.0(L) 30.7 - 34.2 G/DL 06/11/2020 1:50 PM [facility] RDW 18.7(H) 12.0 - 14.8 % 06/11/2020 1:50 PM [facility] PLT 176 145 - 358 x10'3/uL 06/11/2020 1:50 PM [facility] MPV 9.4 8.8 - 12.3 FL 06/11/2020 1:50 PM [facility] NRBC 0.0 % 06/11/2020 3:33 PM [facility] BASOPHILS 0.7 % 06/11/2020 3:33 PM [facility] EOSINOPHILS 1.1 % 06/11/2020 3:33 PM [facility] MONOCYTES 6.2 % 06/11/2020 3:33 PM [facility] LYMPHOCYTES 14.4 % 06/11/2020 3:33 PM [facility] SEG NEUTROPHILS 77.3 % 0 3:33 PM HUMAN RESOURCES OPERATIONS SPECIALIST [facility] IMMATURE GRANS % 0.3 % 06/11/20 20 3:33 PM [facility] ABS. NUCLEATED RBC'S 0.00 0.00 - 0.12 x10'3/uL 06/11/2020 3:33 PM [facility] ABS. BASOPHILS 0.06 0.01 - 0.09 x10'3/uL 06/11/2020 3:33 PM HUMAN RESOURCES OPERATIONS SPECIALIST [facility] ABS. EOSINOPHILS 0.10 0.03 - 0.45 x10'3/uL 06/11/2020 3:33 PM HUMAN RESOURCES OPERATIONS SPECIALIST [facility] ABS. MONOCYTES 0.55 0.30 - 0.80 x10'3/uL 06/11/2020 3:33 PM HUMAN RESOURCES OPERATIONS SPECIALIST [facility] ABS. LYMPHOCYTES 1.28 1.10 - 3.30 x10'3/uL 06/11/2020 3:33 PM HUMAN RESOURCES OPERATIONS SPECIALIST [facility] ABS. NEUTROPHILS 6.88(H) 2.30 - 5.70 x10'3/uL 06/11/2020 3:33 PM HUMAN RESOURCES OPERATIONS SPECIALIST [facility] ABS. IMMATURE GRANULOCYTES 0.03 0.00 - 0.09 x10'3/uL 06/11/2020 3:33 PM HUMAN RESOURCES OPERATIONS SPECIALIST [facility] RBC MORPHOLOGY 1+ 06/11/2020 3:33 PM HUMAN RESOURCES OPERATIONS SPECIALIST [facility] Comment: ANISOCYTOSIS 1+ POLYCHROMASIA 1+ BASOPHILIC STIPPLING 1+ OVALOCYTES 06/11/2020 11:3 5 AM HUMAN RESOURCES OPERATIONS SPECIALIST Nicol Monteiro [facility] F inal Result [facility] [address] [place] [address], * USE ECHOCARDIOGRAM (06/06/2020 10:03 AM HUMAN RESOURCES OPERATIONS SPECIALIST) Anatomical Region Laterality Modality Cardiac Echocardiogram 06/06/2020 11:3 6 AM HUMAN RESOURCES OPERATIONS SPECIALIST Narrative 06/06/2020 11:17 AM HUMAN RESOURCES OPERATIONS SPECIALIST Echocardiography Report Pat.Name: LEIDY VOSS Pat.ID: [id number] .Date: 06/06/2020 Refer.MD: Cindy Norris ANP- Exam Time: 11:36:00 AM Study Type:ECHO WITH CARDIAC DOPPLER COMP Height: 59in Weight: 143.7lb BSA: 1.6 m2 Age: 1 1945,74Y Sex: FEMALE BP: 136/57 Sonogrphr: Katty Yarbrough RCS Pat. Stat.:Outpatient Room: OP CPT - 4: 22900 Reason for Study: Congestive heart failure, Shortness of breath, ELEVATED WHITE COUNT, (FER EPIQ 7 [id number]; X51 PROBE BIJZRP) Procedures: 2D, M-mode, Doppler, [...] 06/06/2020 Echocardiography Report Pat.Name: LEIDY VOSS Pat.ID: [id number] .Date: 06/06/2020 Refer.MD: Cindy Norris Exam Time: 11:36:00 AM Study Type:ECHO WITH CARDIAC DOPPLER COMP Height: 59in Weight: 143.7lb BSA: 1.6 m2 Age: 1 1945,74Y Sex: FEMALE BP: 136/57 Sonogrphr: Katty Yarbrough Pat. Stat.:Outpatient Room: OP CPT - 4: 31214 Reason for Study: Congestive heart failure, Shortness of breath, ELEVATED WHITE COUNT, (FER EPIQ 7 [id number]; X51 PROBE BIJZRP) Procedures: 2D, M-mode, Doppler, [...] 06/06/2020 11:17 AM Adriel Hand M.D. Nicol JULESP ECHO F inal Result * XR CHEST PA+LAT (05/30/2020 3:07 PM HUMAN RESOURCES OPERATIONS SPECIALIST) Anatomical Region Laterality Modality Chest Radiographic Luisana ging 05/30/2020 4:26 PM HUMAN RESOURCES OPERATIONS SPECIALIST Impressions 05/30/2020 4:33 PM HUMAN RESOURCES OPERATIONS SPECIALIST IMPRESSION: 1. Cardiomegaly. 2. Bilateral pulmonary opacities. Interpreted By: Carlos Singleton DO, 05/30/2020 4:26 PM Narrative 05/30/2020 4:33 PM HUMAN RESOURCES OPERATIONS SPECIALIST EXAMINATION: X-ray chest HISTORY: Cough. Leukocytosis. COMPARISON: [...] Carlos Singleton DO, 05/30/2020 4:26 PM Nicol Monteiro SPECIAL CRIMES INVESTIGATOR GENERAL IMAGING F inal Result documented in [...] Rule Out 06/05/2021 06/05/2021 06/06/2021 8:02 AM HUMAN RESOURCES OPERATIONS SPECIALIST COVID-19 Rule Out 08/31/2021 08/31/2021 08/31/2021 1:35 AM HUMAN RESOURCES OPERATIONS SPECIALIST COVID-19 Rule Out 03/06/2022 03/06/2022 03/06/2022 9:42 PM CDT COVID-19 Rule Out 04/16/2022 04/16/2022 04/16/2022 5:15 AM CDT COVID-19 Rule Out 04/16/2022 04/16/2022 04/16/2022 10:56 PM CDT ESBL - Extended Spectrum Beta-lactamase 02/03/2023 02/03/2023 documented as of this encounter Care Teams Supervisor [employer]oder Farm Relationship Specialty Start Date End Date Radha Brock MD [address] [place] [address] PCP - General FAMILY PRACTICE 12/31/18 09/29/22 Radha Brock MD [address] [place] [address] PCP - General FAMILY PRACTICE 09/30/22 documented as of this encounter
--- OUTSIDE RECORDS SUMMARY | 2025-04-03 12:25 | XMS_ITS | Clinical Summary ---
Author Organization [facility] Address [address], [facility] [address] [place] [address] Phone Care Team Providers Care First Beater Name Role Phone Radha Brock MD Primary Care Provider [phone] Radha Brock MD Unavailable [phone] Lore Alfaro MD Unavailable Allergies Active Allergy [...] Comments Blood Pressure 122/44 05/16/2022 12:07 PM CUSTOMER OPERATIONS INTERN Pulse 54 05/16/2022 12:07 PM CUSTOMER OPERATIONS INTERN Temperature 36.2 C (97.1 F) 05/16/2022 12:07 PM CUSTOMER OPERATIONS INTERN Respiratory Rate 16 05/16/2022 12:0 7 PM CUSTOMER OPERATIONS INTERN Oxygen Saturation 94% 05/16/2022 12: 07 PM CUSTOMER OPERATIONS INTERN Inhaled Oxygen Concentration - - Weight 63.8 kg (140 lb 11.2 oz) 022 12:07 PM CUSTOMER OPERATIONS INTERN Height 149.9 cm (4' 11) 05/16/2022 12: 07 PM CUSTOMER OPERATIONS INTERN Body Mass Index 28.42 05/16/2022 12:07 PM CUSTOMER OPERATIONS INTERN Plan of Treatment Health Maintenance Due Date Last Done Comments Hepatitis C Virus (HCV) Screening 1945 TdaP Immunization 1945 Zoster Immunization (1 of 2) 1995 Medicare Initial AWV G0438 04/05/2009 Respiratory Syncytial Virus (RSV) Immunization (Adult) (1 - 1-dose 75+ series) 2020 Influenza Immunization (#1) 03/06/202504/06, 04/21/2022, 07/19/2021, Additional history exists SARS-COV-2 Immunization (2023- season) 2025 Pneumococcal Immunization (50+ years) Completed 03/06/2017, 06/06/2015, [...] age to complete this topic Insurance MEDICARE [facility] Care Teams First Beater Relationship Specialty Start Date End Date Radha Brock MD [address] [place] [address] PCP - General Family Medicine 03/08/20 Radha Brock MD [address] [place] [address] Referring Provider Family Medicine 03/08/20 Lore Alfaro MD [address] [address] Consulting Physician Oncology 06/19/20
--- OUTSIDE RECORDS SUMMARY | 2025-04-03 12:25 | XMS_ITS | Encounter Summary ---
Author Organization [facility] Address [address] [place] [address] Care Team Providers Care Brazer Helper Induction Name Role Phone Radha Brock MD Primary Care Provider [phone] Radha Brock MD Primary Care Provider [phone] Encounter Details Date Type Department Care Team (Late Contact Info) Description 12/26/2016 Abstract [facility] [address] [place] [address] , Generic ConversionMD Social History Tobacco Use Types Packs/Day Years Used Date Smoking Tobacco: Never Comments Unknown Sex and Gender Information Value Date Recorded Sex Assigned at Female 07/27/2024 3:06 PM MARKETING OPERATIONS ANALYST Legal Sex Female 9:21 PM CDT Gender Identity Not on file Sexual Orientation Not on file documented as of this encounter Plan of Treatment Upcoming Encounters Date Type Department Care Team (Late Contact Info) Description 06/08/2025 8:30 AM MARKETING OPERATIONS ANALYST Appointment [facility] [address] [place] [address] Radha Brock MD [address] [place] [address] documented as of this encounter Visit Diagnoses Not on filedocumented in this encounter Additional Health Concerns Infection Onset Date Last Indicated Resolved Time COVID-19 Rule Out 02/18/2021 02/18/2021 02/18/2021 4:07 PM CDT COVID-19 Rule Out 06/05/2021 06/05/2021 06/06/2021 8:02 AM MARKETING OPERATIONS ANALYST COVID-19 Rule Out 08/31/2021 08/31/2021 08/31/2021 1:35 AM MARKETING OPERATIONS ANALYST COVID-19 Rule Out 03/06/2022 03/06/2022 03/06/2022 9:42 PM CDT COVID-19 Rule Out 04/16/2022 04/16/2022 04/16/2022 5:15 AM CDT COVID-19 Rule Out 04/16/2022 04/16/2022 04/16/2022 10:56 PM CDT ESBL - Extended Spectrum Beta-lactamase 02/03/2023 02/03/2023 documented as of this encounter Care Teams Brazer Helper Induction Relationship Specialty Start Date End Date Radha Brock MD [address] [place] [address] PCP - General FAMILY PRACTICE 12/31/18 09/29/22 Radha Brock MD [address] [place] [address] PCP - General FAMILY PRACTICE 09/30/22 documented as of this encounter
--- OUTSIDE RECORDS SUMMARY | 2025-04-03 12:25 | XMS_ITS | Clinical Summary ---
Author Organization [facility] Address [address] [place] [address] Care Team Providers Care Food Processing Plant Manager Name Role Phone Radha Brock MD Primary Care Provider [phone] Yasmany Esquivel MD Unavailable [phone] Mauricio Fairchild MD, Julian Hernandez Unavailable [phone] Allergies Active Allergy Reactions Criticality Noted Date [...] daily 4 Active blood-glucose meter,continuous (Dexcom G7 Centrifuge Operator) misc USE DIRECTED FOR CHECKING SUGARS Active [...] (10/13/2022): Added automatically from request for surgery [id number] Dependence on renal dialysis 06/20/2022 Pulmonary hypertension [...] (10/17/2021): Added automatically from request for surgery [id number] Gastrointestinal hemorrhage with hematemesis 06/2022 Overview (10/24/2021): Added automatically from request for surgery [id number] Hypoxemia requiring supplemental oxygen 08/28/19 22 Pre-transplant evaluation for kidney transplant 04/09/2021 Overview (05/23/2021): Images from the original note were not included. Leidy Voss 1945 Referring Correctional Case Manager: Yasmany Esquivel Listing Date: Dialysis Info: Type: Time: (Not currently on dialysis) days Blood Type: There is no height or weight on file to calculate BMI. ALERTS Advertising Editor: Past Medical History: Diagnosis Date Arthropathy ankle [...] Procedure Laterality Date ANKLE SURGERY Right 10/15/2010 [place] CARDIAC STERNAL PRECAUTION 09/10/2011 x2 Cholecystectomy, Open 1988 Coronary Artery Bypass Graft 11/14/2011 4 bypass HAND SURGERY 1990 carpal Tunnel Hysterectomy 1985 total. Kirsten Hatch [facility] SHOULDER PROCEDURE/SURGERY 2019 Tonsillectomy 195 [...] Friends and Family: Not on file Attends [employer] Services: Not on file Active Member of [...] did remove several times a day for rkizt-mx-gcoavn exercises Follow-up in 3 weeks, likely discontinue [...] blurry vision which was worked up at [place]. No stroke was noted. Follow-up note 04/30/2018: [...] of her shoulder surgery. Office visit with BAG BAILER 06/05/2020: She is here under the advice [...] also been advised to follow-up with her manager clinical pharmacy. Prior to this recent illness she states she was able to lose 15 lb by eating healthier but she has now regained this weight. Currently she is drinking two 32 oz containers of water a day. Despite all this she states I feel fine. Office visit with BAG BAILER 07/12/2020: after her last office visit she had an echo showing diastolic dysfunction. She had appt with Dr. Esquivel who increased her furosemide (her perception is this is a temporary increase), and she is also now under the care of a manager clinical pharmacy Dr. Alfaro at [facility], and has had 2 units PRBC [...] for this visit: Coronary artery disease of [place] artery of [place] heart with stable angina pectoris (CMS/HCC) (Primary) [...] Signed By: Marcio Julien MD 2020-08-17 17:33:04 TRACK WORKER [facility]: 11/11/2011 C CXR: CT abd/pelvis non-contrast: [...] artery disease of n ative artery of [place] heart with stable angina pectoris 07/08/2017 Hyperlipidemia [...] Overview (10/09/2016): Essential hypertension Coronary arteriosclerosis in [place] artery 04/25 Overview (10/09/2016): Coronary artery disease involving [place] coronary artery of [place] heart without angina pectoris Type 2 diabetes [...] 03/09/2012 Overview (10/15/2022): Coronary artery disease involving [place] coronary artery of [place] heart without angina pectoris Coronary artery disease involving [place] coronary artery of [place] heart without angina pectoris Surgical History Surgery Date Site/Laterality Comments CHOLECYSTECTOMY [...] Hypertension 1907 Hypertension Osteoarthritis Osteoarthritis Diabetes mellitus 1907 Diabetes Chronic coronary artery disease Coronary artery disease Hx Other Medical 1990 Carpal tunnel j oint fusion rt hand Hx Other Medical 1975 Hole in rt leg Hx Other Medical 1988 Right Shoulder Sx Hx Other Medical 2001 Rt ankle sx Hx Other Medical 2010 Rt ankle replac ement Myocardial infarction (HCC) Myoc ardial infarction Hx Other Medical 2012 Stent placed Hx Other Medical 2012 bypasses X 4 Chronic kidney disease 2012 Sleep apnea Type 2 diabetes mellitus Dialysis patient CHF (congestive heart failure) (HCC) ESRD (end stage renal disease) 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 No 03/09/2024 Social Connection and Isolation Panel Answer Date Recorded In a typical week, how many times do you talk on the phone with family, friends, or neighbors? More than three times a week 03/09/2024 How often do you get togethe r with friends or relatives? More than three times a week 03/09/2024 How often do you attend chur or pentecostalism services? More than 4 times per year 03/09/2024 Do you belong to any clubs o r organizations such as muslim groups, unions, fraternal or athletic groups, or [...] and heating? Not hard at all 03/09/2024 [facility] Jud of Occupat ional Health - Occupational Stress [...] place to sleep or slept in a intermediate (including now)? No 01/07/2023 Housing Stability Vital Sign Answer Seth e Recorded In the last 12 months, was t here a time when you were not able to pay the mortgage or rent on time? No 03/09/2024 In the past 12 months, how m any times have you moved where you were living? 1 03/09/2024 At any time in the past [address] [facility], were you homeless or living in a intermediate (including now)? 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 Not on file Not [...] 08/11/2023, Additional history exists eGFR 03/01/2025 03/01/2024, 11/05, 11/14/2023, Additional history exists Influenza Vaccine (#1) 2025 , 04/21/2022, 07/19/2021, Additional history exists Fall Risk Assessment 03/16/2025 03/16/2024 Pneumococcal vaccine 65+ Completed 017, 06/06/2015, 05/16/2013 Hepatitis B Screening Completed 01/07/2023 Hepatitis C Screening Completed 01/07/2023 Breast Cancer Screening-Mammogram Discontinued 06/13/2024, 06/13/2024, 06/09/2023, Additional history exists Medical Devices Implanted Type Area Rolls Baker Device Identifier Shelf Expiration Date Model / Serial / Lot [employer] Inc Vascade Mvp 6-12fr Venous Closure [id number] - [id number] Implanted:Qty: 1 on 11/14/2022 by Jarrett Mayo MD at [facility] Collagen Right: Femoral Vein [employer] Inc 06/19/2024 800-612C- 10U / / [id number] [employer] Vascade Mvp 6-12fr Venous Closure [id number] - [id number] Implanted:Qty: 1 on 11/14/2022 by Jarrett Mayo MD at [facility] Collagen Left: Femoral Vein [employer] 06/19/2024 800-612C- 10U / / [id number] [employer] Device Closure Vascade Od5 Fr Femoral Artery [id number]-[id number] - [id number] Implanted:Qty: 1 on 11/14/2022 by Jarrett Mayo MD at [facility] Collagen Right: Femoral Vein [employer] 07/28/2024 700-500DX -05U / / [id number] [employer] Inc Device Vascular Closure Femoral Artery Bioabsorbable Dual Method Vascade 6-7fr Collagen [id number] - [id number] Implanted:Qty: 1 on 11/14/2022 by Jarrett Mayo MD at [facility] Collagen Left: Femoral Vein [employer] 08/04/2024 700-580I- 05U / / [id number] Medtronic [employer] Inc X [id number] Resolute Garth 3mm 2.1-2.7fr 34mm 140cm Rapid Exchange Radiopaque - [id number] Implanted:Qty: 1 on 10/18/2021 by Sha Wu MD at [facility] Medtronic Inc 05/30/2022 [id number] / / Synthes Lcp 12mm 47u3v6yl .7mm 5 Hole Collar /3 Tubular Plate Bone 241.351 - [id number] Implanted:Qty: 1 on 01/08/2023 by Julian Martínez Jr., MD at [facility] Right: Fibula Synthes I 241.351 / / Synthes 3.5mm 6mm 16mm 2.5mm Self Tap Small Hexagonal Socket Low Profile 204.816 - [id number] Implanted:Qty: 4 on 01/08/2023 by Julian Martínez Jr., MD at [facility] Right: Fibula Synthes I 204.816 / / Explanted Type Area Rolls Baker Device Identifier Shelf Expiration Date Model / Serial / Lot Synthes Lcp Combi 187mm 10 Hole Low Profile Round Edge Tibial Right 02.112.522 - [id number] Implanted:Qty: 1 on 01/08/2023 by Julian Martínez Jr., MD at [facility] Explanted:Qty: 1 on 11/13/2023 by Julian Martínez Jr., MD at [facility] Right: Tibia Synthes I 02.112.522 / / Synthes 3.5mm 6mm 42mm 2.5mm Self Tap Small Hexagonal Socket Low Profile 204.842 - [id number] Implanted:Qty: 1 on 01/08/2023 by Julian Martínez Jr., MD at [facility] Explanted:Qty: 1 on 11/13/2023 by Julian Martínez Jr., MD at [facility] Right: Tibia Synthes I 204.842 / / Synthes 3.5mm 2.9mm 10mm Self Tap Lock Stardrive Conical Head T15 Full 212.101 - [id number] Implanted:Qty: 1 on 01/08/2023 by Julian Martínez Jr., MD at [facility] Explanted:Qty: 1 on 11/13/2023 by Julian Martínez Jr., MD at [facility] Right: Tibia Synthes I 212.101 / / Synthes 3.5mm 2.9mm 45mm Self Tap Lock Stardrive Conical Head T15 Full 212.119 - [id number] Implanted:Qty: 1 on 01/08/2023 by Julian Martínez Jr., MD at [facility] Explanted:Qty: 1 on 11/13/2023 by Julian Martínez Jr., MD at [facility] Right: Tibia Synthes I 212.119 / / Synthes 3.5mm 6mm 20mm 2.5mm Self Tap Small Hexagonal Socket Low Profile 204.820 - [id number] Implanted:Qty: 1 on 01/08/2023 by Julian Martínez Jr., MD at [facility] Explanted:Qty: 1 on 11/13/2023 by Julian Martínez Jr., MD at [facility] Right: Tibia Synthes I 204.820 / / Synthes 3.5mm 2.9mm 40mm Self Tap Lock Stardrive Conical Head T15 Full 212.117 - [id number] Implanted:Qty: 1 on 01/08/2023 by Julian Martínez Jr., MD at [facility] Explanted:Qty: 1 on 11/13/2023 by Julian Martínez Jr., MD at [facility] Right: Tibia Synthes I 212.117 / / Synthes 3.5mm 2.9mm 24mm Self Tap Lock Stardrive Conical Head Pelvis T15 212.108 - [id number] Implanted:Qty: 1 on 01/08/2023 by Julian Martínez Jr., MD at [facility] Explanted:Qty: 1 on 11/13/2023 by Julian Martínez Jr., MD at [facility] Right: Tibia Synthes I 212.108 / / Synthes 3.5mm 2.9mm 20mm Self Tap Lock Stardrive Conical Head T15 Full 212.106 - [id number] Implanted:Qty: 2 on 01/08/2023 by Julian Martínez Jr., MD at [facility] Explanted:Qty: 2 on 11/13/2023 by Julian Martínez Jr., MD at [facility] Right: Tibia Synthes I 212.106 / / Synthes 3.5mm 6mm 40mm 2.5mm Self Tap Small Hexagonal Socket Low Profile 204.840 - [id number] Implanted:Qty: 1 on 11/13/2023 by Julian Martínez Jr., MD at [facility] Explanted:Qty: 1 on 03/08/2024 by Julian Martínez Jr., MD at [facility] Right: Tibia Synthes I 204.840 / / Synthes 3.5mm 6mm 30mm 2.5mm Self Tap Small Hexagonal Socket Low Profile 204.830 - [id number] Implanted:Qty: 1 on 11/13/2023 by Julian Martínez Jr., MD at [facility] Explanted:Qty: 1 on 03/08/2024 by Julian Martínez Jr., MD at [facility] Right: Tibia Synthes I 204.830 / / Synthes 3.5mm 6mm 36mm 2.5mm Self Tap Small Hexagonal Socket Low Profile 204.836 - [id number] Implanted:Qty: 1 on 11/13/2023 by Julian Martínez Jr., MD at [facility] Explanted:Qty: 1 on 03/08/2024 by Julian Martínez Jr., MD at [facility] Right: Tibia Synthes I 204.836 / / Synthes 3.5mm 2.9mm 40mm Self Tap Lock Stardrive Conical Head T15 Full 212.117 - [id number] Implanted:Qty: 2 on 11/13/2023 by Julian Martínez Jr., MD at [facility] Explanted:Qty: 2 on 03/08/2024 by Julian Martínez Jr., MD at [facility] Right: Tibia Synthes I 212.117 / / Synthes Plate Bone Compression Locking Low Profile 10 Hole Right Lcp [id number] Ss 02.112.522s - [id number] Implanted:Qty: 1 on 11/13/2023 by Julian Martínez Jr., MD at [facility] Explanted:Qty: 1 on 03/08/2024 by Julian Martínez Jr., MD at [facility] Right: Tibia Synthes 02.112.522S / / Synthes 3.5mm 2.9mm 24mm Self Tap Lock Stardrive Conical Head Pelvis T15 212.108 - [id number] Implanted:Qty: 3 on 11/13/2023 by Julian Martínez Jr., MD at [facility] Explanted:Qty: 3 on 03/08/2024 by Julian Martínez Jr., MD at [facility] Right: Tibia Synthes I 212.108 / / Synthes 3.5mm 6mm 24mm 2.5mm Self Tap Small Hexagonal Socket Low Profile 204.824 - [id number] Implanted:Qty: 1 on 11/13/2023 by Julian Martínez Jr., MD at [facility] Explanted:Qty: 1 on 03/08/2024 by Julian Martínez Jr., MD at [facility] Right: Tibia Synthes I 204.824 / / Procedures Procedure Name Priority Date/Time Associated Diagnosis Comments EGFR Routine 03/01/2024 12:01 PM CDT Pre-op testing LIPID PANEL Routine 08/11/2023 12:17 PM TRACK WORKER HEPATITIS PANEL, ACUTE STAT 01/07/2023 7:40 AM CDT from Last 3 Months or Most Recently Relevant to Health Maintenance Results * (ABNORMAL) eGFR (03/01/2024 12:01 PM CDT) [...] NP LAB BLOOD ORDERABLES Final Res ult KE[facility] BELLA [id number] Department [place] [address] * Lipid panel (08/11/2023 12:17 PM TRACK WORKER) Pathologist [facility] SCRIBED Cholesterol, Total 139 <200 EXTERNAL LAB SCRIBED HDL 44 >40 EXTERNAL LAB SCRIBED LDL 33 <100 EXTERNAL LAB SCRIBED Triglycerides 309 <150 EXTERNAL LAB Blood Historical Provider LAB BLOOD ORDERABLES Edit ed Result - Final EXTERNAL LAB * Hepatitis panel, acute (01/07/2023 7:40 AM CDT) Pathologist [facility] Hep A IgM Nonreactive Nonreactive KEIKO BELLA [...] - GENERAL ORD ERABLES Final Result KEIKO [id number] Department [place] [address] from Last 3 Months or Most Recently Relevant to Health Maintenance Insurance MEDICARE [facility] MEDICARE [facility] MEDICARE SUPPLEMENT Advance Directives For more information, please contact: [phone] Documents on File Type Date Recorded Patient Fuel Island Attendant Expl anation ADVANCE DIRECTIVE 11/04/2021 9:22 AM POWER OF PEDIATRIC NURSE PRACTITIONER-MEDICAL * Full Code (Latest Code Status on [...] 9:39 AM 11/03/2021 5:05 PM Care Teams Food Processing Plant Manager Relationship Specialty Start Date End Date Radha Brock MD [address] [place] [address] PCP - General 10/03/16 Yasmany Esquivel MD [address] [place] [address] Referring Physician Nephrology 11/03/21 [place] [id number] [address] Surgeon Orthopedic Surgery 01/12/23
--- OUTSIDE RECORDS SUMMARY | 2025-04-03 12:25 | XMS_ITS | Encounter Summary ---
Author Organization [facility] Address [address] [place] [address] Care Team Providers Care Horseback Riding Instructor Name Role Phone Radha Brock MD Primary Care Provider [phone] Radha Brock MD Primary Care Provider [phone] Encounter Details Date Type Department Care Team (Late Contact Info) Description 06/08/[address] [facility] Conversion [address] [place] [address] , Generic ConversionMD Social History Tobacco Use Types Packs/Day Years Used Date Smoking Tobacco: Never Comments Unknown Sex and Gender Information Value Date Recorded Sex Assigned at Female 07/27/2024 3:06 PM TONG SETTER Legal Sex Female 9:21 PM CDT Gender Identity Not on file Sexual Orientation Not on file documented as of this encounter Plan of Treatment Upcoming Encounters Date Type Department Care Team (Late Contact Info) Description 06/08/2025 8:30 AM TONG SETTER Appointment [facility] SAP BW BI DEVELOPER Mammography [address] [place] [address] Radha Brock MD [address] [place] [address] documented as of this encounter Visit Diagnoses Not on filedocumented in this encounter Additional Health Concerns Infection Onset Date Last Indicated Resolved Time COVID-19 Rule Out 02/18/2021 02/18/2021 02/18/2021 4:07 PM CDT COVID-19 Rule Out 06/05/2021 06/05/2021 06/06/2021 8:02 AM TONG SETTER COVID-19 Rule Out 08/31/2021 08/31/2021 08/31/2021 1:35 AM TONG SETTER COVID-19 Rule Out 03/06/2022 03/06/2022 03/06/2022 9:42 PM CDT COVID-19 Rule Out 04/16/2022 04/16/2022 04/16/2022 5:15 AM CDT COVID-19 Rule Out 04/16/2022 04/16/2022 04/16/2022 10:56 PM CDT ESBL - Extended Spectrum Beta-lactamase 02/03/2023 02/03/2023 documented as of this encounter Care Teams Horseback Riding Instructor Relationship Specialty Start Date End Date Radha Brock MD [address] [place] [address] PCP - General FAMILY PRACTICE 12/31/18 09/29/22 Radha Brock MD [address] [place] [address] PCP - General FAMILY PRACTICE 09/30/22 documented as of this encounter
--- OUTSIDE RECORDS SUMMARY | 2025-04-03 12:25 | XMS_ITS | Encounter Summary ---
Author Organization [facility] Address Count includes the [facility] [place] [address] Care Team Providers Care Toy Parts Former Supervisor Name Role Phone Radha Brock MD Primary Care Provider [phone] Radha Brock MD Primary Care Provider [phone] Encounter Details Date Type Department Care Team (Late st Contact Info) Description 02/03/2022 [employer] Message Enc [facility] Family Medicine [facility] [address] [place], [place] [address] [facility] Provider Renal Ultrasound Social History Tobacco Use [...] Sex Assigned at Female 07/27/2024 3:06 PM TEACHERS AIDE Legal Sex Female 9:21 PM CDT Gender [...] st Contact Info) Description 06/08/2025 8:30 AM TEACHERS AIDE Appointment [facility] MANUFACTURING SCHEDULER Mammography [address] [place] [address] Radha Brock MD [address] [place] [address] documented as of this encounter Visit Diagnoses [...] documented as of this encounter Care Teams Toy Parts Former Supervisor Relationship Specialty Start Date End Date Radha Brock MD [address] [place] [address] PCP - General FAMILY PRACTICE 12/31/18 09/29/22 Radha Brock MD [address] [place] [address] PCP - General FAMILY PRACTICE 09/30/22 documented as of this encounter
--- OUTSIDE RECORDS SUMMARY | 2025-04-03 12:25 | XMS_ITS | Encounter Summary ---
Author Organization [facility] Address [facility] [place] [address] Care Team Providers Care Tank Tester Name Role Phone Radha Brock MD Primary Care Provider [phone] Radha Brock MD Primary Care Provider [phone] Encounter Details Date Type Department Care Team ([facility] Contact Info) Description 06/11/[address] [facility] EPICCARE LINK Nicol Monteiro FNP Social History Tobacco Use Types Packs/Day Years Used Date Smoking Tobacco: Never Smokeless Tobacco: Never Alcohol Use Standard Drinks/Week Comments Yes 0 (1 standard drink = 0.6 oz pur e alcohol) rare Comments No Sex and Gender Information Value Date Recorded Sex Assigned at Female 07/27/2024 3:06 PM CASHIER HOST/HOSTESS Legal Sex Female 9:21 PM CDT Gender Identity Not on file Sexual Orientation Not on file COVID-19 Exposure Response Date Recorded In the last month, have you been in contact with someone who was confirmed or suspected to have Coronavirus / COVID-19? No / Unsure 06/11/2020 7:04 PM CASHIER HOST/HOSTESS documented as of this encounter Plan of Treatment Upcoming Encounters Date Type Department Care Team ([facility] Contact Info) Description 06/08/2025 8:30 AM CASHIER HOST/HOSTESS Appointment [facility] PHARMACY CLERK Mammography [address] [place] [address] Radha Brock MD [address] [place] [id number] documented as of this encounter Visit Diagnoses Diagnosis Anemia- Primary Anemia, unspecified documented in this encounter Additional Health Concerns Infection Onset Date Last Indicated Resolved Time COVID-19 Rule Out 02/18/2021 02/18/2021 02/18/2021 4:07 PM CDT COVID-19 Rule Out 06/05/2021 06/05/2021 06/06/2021 8:02 AM CASHIER HOST/HOSTESS COVID-19 Rule Out 08/31/2021 08/31/2021 08/31/2021 1:35 AM CASHIER HOST/HOSTESS COVID-19 Rule Out 03/06/2022 03/06/2022 03/06/2022 9:42 PM CDT COVID-19 Rule Out 04/16/2022 04/16/2022 04/16/2022 5:15 AM CDT COVID-19 Rule Out 04/16/2022 04/16/2022 04/16/2022 10:56 PM CDT ESBL - Extended Spectrum Beta-lactamase 02/03/2023 02/03/2023 documented as of this encounter Care Teams Tank Tester Relationship Specialty Start Date End Date Radha Brock MD [address] [place] [address] PCP - General FAMILY PRACTICE 12/31/18 09/29/22 Radha Brock MD [address] [place] [address] PCP - General FAMILY PRACTICE 09/30/22 documented as of this encounter
--- OUTSIDE RECORDS SUMMARY | 2025-04-03 12:25 | XMS_ITS | Encounter Summary ---
Author Organization [facility] Address [facility] [place] [address] Care Team Providers Care Manager Instrumentation Name Role Phone Radha Brock MD Primary Care Provider [phone] Radha Brock MD Primary Care Provider [phone] Encounter Details Date Type Department Care Team (Late Contact Info) Description 06/15/2020 Therapy Plan [facility] Infusion Services [address] [place] [address] Lore Alfaro MD [address] [place] [phone] Social History Tobacco Use Types Packs/Day Years Used Date Smoking Tobacco: Never Smokeless Tobacco: Never Alcohol Use Standard Drinks/Week Comments Yes 0 (1 standard drink = 0.6 oz pur e alcohol) rare Comments No Sex and Gender Information Value Date Recorded Sex Assigned at Female 07/27/2024 3:06 PM BOOT AND SHOE LABORER Legal Sex Female 9:21 PM CDT Gender Identity Not on file Sexual Orientation Not on file COVID-19 Exposure Response Date Recorded In the last month, have you been in contact with someone who was confirmed or suspected to have Coronavirus / COVID-19? No / Unsure 06/15/2020 4:35 PM BOOT AND SHOE LABORER documented as of this encounter Plan of Treatment Upcoming Encounters Date Type Department Care Team (Late Contact Info) Description 06/08/2025 8:30 AM BOOT AND SHOE LABORER Appointment [facility] SURFACE ROOM SHOP OPTICIAN Mammography [address] [place] [address] Radha Brock MD [address] [place], [place] [id number] documented as of this encounter Visit Diagnoses Not on filedocumented in this encounter Additional Health Concerns Infection Onset Date Last Indicated Resolved Time COVID-19 Rule Out 02/18/2021 02/18/2021 02/18/2021 4:07 PM CDT COVID-19 Rule Out 06/05/2021 06/05/2021 06/06/2021 8:02 AM BOOT AND SHOE LABORER COVID-19 Rule Out 08/31/2021 08/31/2021 08/31/2021 1:35 AM BOOT AND SHOE LABORER COVID-19 Rule Out 03/06/2022 03/06/2022 03/06/2022 9:42 PM CDT COVID-19 Rule Out 04/16/2022 04/16/2022 04/16/2022 5:15 AM CDT COVID-19 Rule Out 04/16/2022 04/16/2022 04/16/2022 10:56 PM CDT ESBL - Extended Spectrum Beta-lactamase 02/03/2023 02/03/2023 documented as of this encounter Care Teams Manager Instrumentation Relationship Specialty Start Date End Date Radha Brock MD [address] [place] [address] PCP - General FAMILY PRACTICE 12/31/18 09/29/22 Radha Brock MD [address] [place] [address] PCP - General FAMILY PRACTICE 09/30/22 documented as of this encounter
--- OUTSIDE RECORDS SUMMARY | 2025-04-03 12:25 | XMS_ITS | Encounter Summary ---
Author Organization [facility] Address [facility] [place] [address] Care Team Providers Care Gear Lapper Name Role Phone Radha Brock MD Primary Care Provider [phone] Radha Brock MD Primary Care Provider [phone] Encounter Details Date Type Department Care Team (Late Contact Info) Description 10/04/2020 Community Orders [facility] EPICCARE LINK Nicol Monteiro FNP Social History Tobacco Use Types Packs/Day Years Used Date Smoking Tobacco: Never Smokeless Tobacco: Never Alcohol Use Standard Drinks/Week Comments Yes 0 (1 standard drink = 0.6 oz pur e alcohol) rare Comments No Sex and Gender Information Value Date Recorded Sex Assigned at Female 07/27/2024 3:06 PM SUPERVISOR BODY ASSEMBLY Legal Sex Female 9:21 PM CDT Gender Identity Not on file Sexual Orientation Not on file documented as of this encounter Plan of Treatment Upcoming Encounters Date Type Department Care Team (Late Contact Info) Description 06/08/2025 8:30 AM SUPERVISOR BODY ASSEMBLY Appointment [facility] HEAD OF MATHEMATICS Mammography [address] [place] [address] Radha Brock MD [address] [place] [address] documented as of this encounter Results * (ABNORMAL) LIPID PANEL (10/08/2020 9:08 AM CDT) CHOLESTEROL 147 0 - 199 MG/DL 10/08/2020 10:39 AM CDT [facility] TRIGLYCERIDES 191(H) 0 - 149 MG/DL 10/08/2020 10:39 AM CDT [facility] HDL 46 >39 MG/DL 10/08/2020 10:39 AM CDT [facility] LDL (CALCULATED) 63 <100 MG/DL 10/09/19 10:39 AM CDT [facility] VLDL CALCULATION 38 MG/DL 10/09/19 10:39 AM CDT [facility] Comment:REFERENCE RANGE NOT ESTABLISHED CHOL/HDL RATIO 3.2 10/08/2020 10:39 AM CDT [facility] Comment:REFERENCE RANGE NOT ESTABLISHED LDL/HDL 1.0 10/08/2020 10:39 AM CDT [facility] Comment:REFERENCE RANGE NOT ESTABLISHED NON HDL CHOLESTEROL 101 MG/DL 10/08/2020 10:39 AM CDT [facility] Comment:REFERENCE RANGE NOT ESTABLISHED 10/08/2020 9:08 AM CDT Nicol Monteiro [facility] F inal Result [facility] [address] [place] [address], * (ABNORMAL) BASIC METABOLIC PANEL (10/08/2020 9:08 AM CDT) SODIUM S/P/B 139 136 - 145 MMOL/L 10/08/2020 10:39 AM CDT [facility] POTASSIUM S/P/B 5.0 3.5 - 5.1 MMOL/L 10/08/2020 10:39 AM CDT [facility] CHLORIDE S/P/B 108(H) 98 - 107 MMOL/L 10/08/2020 10:39 AM [facility] CO2 22.0 21.0 - 32.0 MMOL/L 10/08/2020 10:39 AM [facility] GLUCOSE 143(H) 74 - 106 MG/DL 10/08/2020 10:39 AM [facility] BUN 41(H) 7 - 18 MG/DL 10/08/2020 10:39 AM [facility] CREATININE S/P/B 2.60(H) 0.55 - 1.02 MG/DL 10/08/2020 10:39 AM [facility] CALCIUM S/P/B 8.9 8.5 - 10.1 MG/DL 10/08/2020 10:39 AM [facility] ANION GAP 9.0 5.0 - 15.0 MMOL/L 10/08/2020 10:39 AM [facility] OSMOLALITY (CALC) 301 MOSM/KG 021 10:39 AM [facility] Comment:REFERENCE RANGE NOT ESTABLISHED EGFR NON-AFR. AMER. 17(L) >89 ML/MIN/1. 73 M2 10/08/2020 10:39 AM [facility] EGFR AFR. AMER. 20(L) >89 ML/MIN/1. 73 M2 10/08/2020 10:39 AM [facility] GFR NOTES GFR REFERENCE S: 10/08/2020 10:39 AM [facility] Comment: THE ESTIMATED GFR IS [...] ml/min/1.73 m2 10/08/2020 9:08 AM CDT Nicol Schumacherzabeth Thania [facility] F inal Result Performing Organization Address [facility] Co de Phone Number [facility] [address] [place] [address], * (ABNORMAL) HEMOGLOBIN, GLYCOSYLATED (10/08/2020 9:08 AM CDT) HGB A1C 5.6 4.2 - 6.3 % 10/08/2020 10:42 AM CDT [facility] Comment: ADA GUIDELINES 5.7 TO 6.4% INCREASED RISK OF DIABETES > OR = 6.5% CONSISTENT WITH DIABETES ESTIMATED AVG GLUCOSE 114(H) 74 - 106 MG/DL 10/08/2020 10:42 AM CDT [facility] 10/08/2020 9:08 AM CDT Nicol Prabha Monteiro [facility] F inal Result Performing Organization Address [facility] Co de Phone Number [facility] [address] [place] [address], documented in this encounter Visit Diagnoses Diagnosis Diabetes (CMS/HCC HHS/HCC)- Primary documented in this encounter Additional Health Concerns Infection Onset Date Last Indicated Resolved Time COVID-19 Rule Out 02/18/2021 02/18/2021 02/18/2021 4:07 PM CDT COVID-19 Rule Out 06/05/2021 06/05/2021 06/06/2021 8:02 AM SUPERVISOR BODY ASSEMBLY COVID-19 Rule Out 08/31/2021 08/31/2021 08/31/2021 1:35 AM SUPERVISOR BODY ASSEMBLY COVID-19 Rule Out 03/06/2022 03/06/2022 03/06/2022 9:42 PM CDT COVID-19 Rule Out 04/16/2022 04/16/2022 04/16/2022 5:15 AM CDT COVID-19 Rule Out 04/16/2022 04/16/2022 04/16/2022 10:56 PM CDT ESBL - Extended Spectrum Beta-lactamase 02/03/2023 02/03/2023 documented as of this encounter Care Teams Gear Lapper Relationship Specialty Start Date End Date Radha Brock MD [address] [place] [id number] PCP - General FAMILY PRACTICE 12/31/18 09/29/22 Radha Brock MD [address] [place] [address] PCP - General FAMILY PRACTICE 09/30/22 documented as of this encounter
--- OUTSIDE RECORDS SUMMARY | 2025-04-03 12:25 | XMS_ITS ---
Author Organization [facility] Address [address] [place] [id number] Care Team Providers Care Paleontology Teacher Name Role Phone Radha Brock MD Primary Care Provider [phone] Yasmany Esquivel MD Unavailable [phone] Mauricio Fairchild MD, Julian Hernandez Unavailable [phone] Dialysis Access Sites Type Status Location Placement Date Removal Da te Peritoneal Dialysis Catheter Intermittent on hold Mid lower abdomen Active Abdomen - Lower, Medial (Navel) Procedures Procedure Name Priority Date/Time Associated Diagnosis Comments EGFR Routine 03/01/2024 12:01 PM CDT Pre-op testing LIPID PANEL Routine 08/11/2023 12:17 PM LION TRAINER HEPATITIS PANEL, ACUTE STAT 01/07/2023 7:40 AM [...] daily 4 Active blood-glucose meter,continuous ([employer] G7 Direct Sales Professional) misc USE DIRECTED FOR CHECKING SUGARS Active [...] (10/13/2022): Added automatically from request for surgery [id number] Dependence on renal dialysis 06/20/2022 Pulmonary hypertension [...] (10/17/2021): Added automatically from request for surgery [id number] Gastrointestinal hemorrhage with hematemesis 06/2022 Overview (10/24/2021): Added automatically from request for surgery [id number] Hypoxemia requiring supplemental oxygen 08/28/19 22 Pre-transplant evaluation for kidney transplant 04/09/2021 Overview (05/23/2021): Images from the original note were not included. Leidy Voss 1945 Referring Field Auditor: Yasmany Esquivel Listing Date: Dialysis Info: Type: Time: (Not currently on dialysis) days Blood Type: There is no height or weight on file to calculate BMI. ALERTS Spar Finisher: Past Medical History: Diagnosis Date Arthropathy ankle [...] Procedure Laterality Date ANKLE SURGERY Right 10/15/2010 [facility] CARDIAC STERNAL PRECAUTION 09/10/2011 x2 Cholecystectomy, Open 1988 Coronary Artery Bypass Graft 11/14/2011 4 bypass HAND SURGERY 1991 carpal Tunnel Hysterectomy 1985 total. Kirsten Tolbertdee Singh PA SHOULDER PROCEDURE/SURGERY 2019 Tonsillectomy 1952 Social History [...] did remove several times a day for [id number] exercises Follow-up in 3 weeks, likely discontinue [...] blurry vision which was worked up at [place]. No stroke was noted. Follow-up note 04/30/2018: [...] of her shoulder surgery. Office visit with BAIT MAN 06/05/2020: She is here under the advice [...] also been advised to follow-up with her termite technician. Prior to this recent illness she states she was able to lose 15 lb by eating healthier but she has now regained this weight. Currently she is drinking two 32 oz containers of water a day. Despite all this she states I feel fine. Office visit with BAIT MAN 07/12/2020: after her last office visit she had an echo showing diastolic dysfunction. She had appt with Dr. Esquivel who increased her furosemide (her perception is this is a temporary increase), and she is also now under the care of a termite technician Dr. 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 Pertinent Previous Committee Presentations: Labs: [...] Signed By: Marcio Julien MD 2020-08-17 17:33:04 LION TRAINER [facility]: 11/11/2011 C CXR: CT abd/pelvis non-contrast: [...] artery disease of n ative artery of yuhaaviatam heart with stable angina pectoris 07/08/2017 Hyperlipidemia [...] Overview (10/09/2016): Essential hypertension Coronary arteriosclerosis in yuhaaviatam artery 04/25 Overview (10/09/2016): Coronary artery disease involving yuhaaviatam coronary artery of yuhaaviatam heart without angina pectoris Type 2 diabetes [...] 03/09/2012 Overview (10/15/2022): Coronary artery disease involving yuhaaviatam coronary artery of yuhaaviatam heart without angina pectoris Coronary artery disease involving yuhaaviatam coronary artery of yuhaaviatam heart without angina pectoris Social History Tobacco Use Types Packs/Day Years Used Date Smoking Tobacco: Never Smokeless Tobacco: Never Tobacco Cessation:Counseling Given: Not Answered Comments:exposed to heavy smoker - 25 years Alcohol Use Standard Drinks/Week Comments Yes 0 (1 standard drink = 0.6 oz pur e alcohol) [facility] Utilities Answer Date Recorded In the [...] How often do you attend chur or scientologist services? More than 4 times per year 03/09/2024 Do you belong to any clubs o r organizations such as anabaptist groups, unions, fraternal or athletic groups, or [...] and heating? Not hard at all 03/09/2024 [facility] - Occupational Stress [...] place to sleep or slept in a assisted (including now)? No 01/07/2023 Housing Stability Vital Sign Answer Seth e Recorded In the last 12 months, was t here a time when you were not able to pay the mortgage or rent on time? No 03/09/2024 In the past 12 months, how m any times have you moved where you were living? 1 03/09/2024 At any time in the past 12 m [facility], were you homeless or living in a assisted (including now)? 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 73 m2 Comment: [...] 03/01/2024 12:01 PM CDT us Angelia Clayton BAIT MAN LAB BLOOD ORDERABLES Final Res ult KEIKO BELLA [id number] Department [place] [address] * Lipid panel (08/11/2023 12:17 PM LION TRAINER) SCRIBED Cholesterol, Total 139 <200 EXTERNAL LAB SCRIBED HDL 44 >40 EXTERNAL LAB SCRIBED LDL 33 <100 EXTERNAL LAB SCRIBED Triglycerides 309 <150 EXTERNAL LAB Blood Historical Provider LAB BLOOD ORDERABLES Edit ed Result - Final EXTERNAL LAB * Hepatitis panel, acute (01/07/2023 7:40 AM CDT) Hep A IgM Nonreactive Nonreactive [facility] Comment: Interpretive Data: If Hep A IgM Ab is reported as Equivocal, a new sample should be drawn in two weeks for testing. Current interpretive data was last revised on 19. Hep B core IgM Nonreactive Nonreactive [facility] Comment: Interpretive Data If HepB Core IgM Ab is reported as Equivocal, a new sample should be drawn in two weeks for testing. Current interpretive data was last revised on 19. Hep C Ab Nonreactive Nonreactive [facility] Comment: Interpretive Data Nonreactive: Antibodies to [...] last revised on 2019. HepBsAg Nonreactive Nonreactive [facility] Blood 01/07/2023 7:40 AM CDT 01/07/2023 7:49 AM CDT Boris Solomon MD LAB MICROBIOLOGY - GENERAL ORD ERABLES Final Result [facility] [id number] Department [place] [address] from Last 3 Months or Most Recently Relevant to Health Maintenance
--- OUTSIDE RECORDS SUMMARY | 2025-04-03 12:25 | XMS_ITS | Clinical Summary ---
Author Organization [facility] Address [address] [place] [address] Care Team Providers Care Store Clerk Checker Name Role Phone Radha Manuel MD Primary Care Provider [phone] Allergies Active Allergy Reactions Criticality Noted Date [...] METER) w/Device KitIndications:Ty pe 2 diabetes mellitus ([facility]) Test blood sugar 2 times a day. 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 Test blood sugars twice a day 100 strip 2 024 Active allopurinol (ZYLOPRIM) 100 MG tabletIndications :Stage 3 chronic kidney disease, unspecified whether stage 3a or 3b CKD ([facility]) TAKE 1 TABLET(100 MG) BY MOUTH DAILY 90 tablet 3 024 Active TRUE METRIX BLOOD GLUCOSE TEST test stripIndications: Type 2 diabetes mellitus with chronic kidney disease on chronic dialysis, without long-term current use of insulin ([facility]) Test blood sugar two times daily with True Metrix Blood Glucose test strips. 100 strip 3 Active Lancets MiscIndications:T ype 2 diabetes mellitus with chronic kidney disease on chronic dialysis, without long-term current use of insulin ([facility]) 2 Lancets by Does not apply route daily. 100 each 2 Active Calcium Carbonate Antacid 1000 MG Chew Tab Chew 400 mg by mouth 2 (two) times daily. Active potassium chloride CR (K-TAB) 10 MEQ Tab CR tablet Take 1 tablet (10 mEq total) by mouth daily. Active CRYSTAL-RAMAN RX 1 MG TabIndications:St age 3 chronic kidney disease, unspecified whether stage 3a or 3b CKD ([facility]) Take 1 tablet by mouth daily. 90 tablet 3 Active hydrALAZINE HCl 100 MG TabIndications:An xiety Take 1 tablet by mouth 3 (three) times daily. 270 tablet 1 Active Additional Information Patient not taking.Reason: Physican Directed, Reported on 01/11/2025 glimepiride (AMARYL) 4 MG tabletIndications :Type 2 diabetes mellitus with chronic kidney disease on chronic dialysis, without long-term current use of insulin ([facility]) Take 1 tablet (4 mg total) by mouth 2 (two) times daily. 180 tablet 1 Active calcium acetate, phos binder, (PHOSLO) 667 MG Cap Take 1 capsule (667 mg total) by mouth 3 (three) times daily with meals. Active amLODIPine (NORVASC) 10 MG tabletIndications :Hypertension, unspecified type TAKE 1 TABLET(10 MG) BY MOUTH DAILY 90 tablet 3 025 Active repaglinide (PRANDIN) 0.5 MG tabletIndications :Type 2 diabetes mellitus with chronic kidney disease on chronic dialysis, without long-term current use of insulin ([facility]) TAKE 1 TABLET BY MOUTH TWICE DAILY BEFORE MEALS 180 tablet 025 Active pantoprazole EC (PROTONIX) 40 MG tabletIndications :Gastroesophageal reflux disease without esophagitis TAKE 1 TABLET(40 MG) BY MOUTH DAILY 90 tablet 1 025 Active isosorbide mononitrate ER (IMDUR) 30 MG 24 hr tabletIndications :Hypertension, unspecified type TAKE 1 TABLET(30 MG) BY MOUTH TWICE DAILY 180 tablet 3 025 Active clopidogrel (PLAVIX) 75 MG tabletIndications :NSTEMI (non-ST elevated myocardial infarction) ([facility]) TAKE 1 TABLET(75 MG) BY MOUTH DAILY 90 tablet 1 025 Active isosorbide mononitrate ER (IMDUR) 30 MG 24 hr tabletIndications :Hypertension, unspecified type Take 1 tablet (30 mg total) by mouth 2 (two) times daily. 180 tablet 3 024 2024 Discontinued clopidogrel (PLAVIX) 75 MG tabletIndications :NSTEMI (non-ST elevated myocardial infarction) ([facility]) TAKE 1 TABLET(75 MG) BY MOUTH DAILY 90 tablet 1 024 2024 Discontinued Active Problems Problem Noted [...] with end stage renal disease on dialysis ([facility]) 06/20/2022 Chronic serous otitis media 05/14/2022 Acute respiratory failure with hypoxia ([facility]) 04/16/2022 Acute on chronic heart failu re with preserved ejection fraction ([facility]) 04/16/2022 Sepsis due to pneumonia ([facility]) 2021 CHF exacerbation ([facility]) 03/06/2022 Hypertensive urgency 01/09/2022 PSVT (paroxysmal supraventricular tachycardia) ( [facility]) 12/22/2021 Overview (10/13/2022): Added automatically from request for surgery [id number] NSTEMI (non-ST elevated myoc ardial infarction) ([facility]) 12/12/2021 Chest pain 10/15/2021 Overview (12/24/2021): Added automatically from request for surgery [id number] Gastrointestinal hemorrhage with hematemesis 06/2022 Overview (12/24/2021): Added automatically from request for surgery [id number] Hypoxemia requiring supplemental oxygen 08/28/19 22 Pre-transplant evaluation for kidney transplant 04/09/2021 Overview (04/20/2024): Leidy Voss 1945 Referring Loan Operations Specialist: Yasmany Esquivel Listing Date: Dialysis Info: Type: Time: (Not currently on dialysis) days Blood Type: There is no height or weight on file to calculate BMI. ALERTS Career Technology Teacher: Past Medical History: Diagnosis Date ? Arthropathy [...] Laterality Date ? ANKLE SURGERY Right 10/15/2010 [facility] ? CARDIAC STERNAL PRECAUTION 09/10/2011 x2 ? Cholecystectomy, Open 1988 ? Coronary Artery Bypass Graft 11/14/2011 4 bypass ? HAND SURGERY 1991 carpal Tunnel ? Hysterectomy 1985 total. [facility] ? SHOULDER PROCEDURE/SURGERY 2019 ? Tonsillectomy 1951 Social History Socioeconomic History [...] and Family: Not on file ? Attends Pentecostal Services: Not on file ? Active Member [...] did remove several times a day for rybvw-ty-sqzlnf exercises Follow-up in 3 weeks, likely discontinue [...] blurry vision which was worked up at [facility]. No stroke was noted. Follow-up note 04/30/2018: [...] of her shoulder surgery. Office visit with ELECTRONIC IMAGING SYSTEM OPERATOR 06/05/2020: She is here under the [...] also been advised to follow-up with her research hydrologist. Prior to this recent illness she states she was able to lose 15 lb by eating healthier but she has now regained this weight. Currently she is drinking two 32 oz containers of water a day. Despite all this she states ?I feel fine.? Office visit with ELECTRONIC IMAGING SYSTEM OPERATOR 07/12/2020: after her last office visit she had an echo showing diastolic dysfunction. She had appt with Dr. Esquivel who increased her furosemide (her perception is this is a temporary increase), and she is also now under the care of a research hydrologist Dr. 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 (CMS/HCC) (Primary) [...] months or sooner as clinically indicated Marcio Julein MD, FACC Pertinent Previous Committee Presentations: Labs: [...] Signed By: Marcio Julien MD 2020-08-17 17:33:04 SHEET METAL OPERATOR [facility]: 11/11/2011 C CXR: CT abd/pelvis non-contrast: [...] Pending: Chronic diastolic congestive heart failure (CMS/HCC HHS/HCC) 07/12/2020 B12 deficiency 06/19/2020 Chronic kidney disease, stage III (moderate) 05/2020 Iron deficiency anemia secondary to blood loss ( chronic) 06/15/2020 End stage renal disease ([facility]) 2019 End-stage renal disease on hemodialysis ([facility]) 03/22/2020 Bilateral carotid artery stenosis 12/28/2019 Tibialis posterior tendonitis, right 09/05/2019 History of total ankle replacement, right 2019 Small intestinal bacterial overgrowth 12/09/2017 Hyperlipidemia associated wi th type 2 diabetes mellitus ([facility]) 07/08/2017 Obstructive sleep apnea syndrome 07/08/2017 Ischemic cardiomyopathy 04/25/2015 Overview (12/24/2021): Ischemic cardiomyopathy Unknown and unspecified causes of morbidity 02/2014 Overview (12/21/2021): Chronic kidney insufficiency Type 2 diabetes mellitus ([facility]) 03/13 Overview (12/24/2021): Type 2 diabetes mellitus with diabetic chronic kidney disease Diabetes mellitus Cerebrovascular accident (CV A) due to other mechanism ([facility]) 03/13/2014 Overview (12/09/2023): Carotid artery disease Carotid artery disease Dyslipidemia 03/13/2014 Overview (12/24/2021): Dyslipidemia Hypertension associated with stage 3 chronic kidney disease due to type 2 diabetes mellitus ([facility]) 03/01/2014 Acute sinusitis 05/26/2013 H/O long-term treatment with high-risk medicatio n 04/21/2012 Esophageal reflux 03/24/2012 Encounter for preventive health examination 10/2011 Overview (12/21/2021): Images from the original note were not included. Leidy Voss 1945 Referring Loan Operations Specialist: Yasmany Esquivel Listing Date: Dialysis Info: Type: Time: (Not currently on dialysis) days Blood Type: There is no height or weight on file to calculate BMI. ALERTS Career Technology Teacher: Past Medical History: Diagnosis Date Arthropathy ankle [...] Procedure Laterality Date ANKLE SURGERY Right 10/15/2010 [facility] CARDIAC STERNAL PRECAUTION 09/10/2011 x2 Cholecystectomy, Open 1988 Coronary Artery Bypass Graft 11/14/2011 4 bypass HAND SURGERY 1990 carpal Tunnel Hysterectomy 1985 total. [facility] [place] SHOULDER PROCEDURE/SURGERY 2019 Tonsillectomy 195 Social History [...] Friends and Family: Not on file Attends Pentecostal Services: Not on file Active Member of [...] did remove several times a day for uensm-qg-omtijp exercises Follow-up in 3 weeks, likely discontinue [...] blurry vision which was worked up at [facility]. No stroke was noted. Follow-up note 04/30/2018: [...] of her shoulder surgery. Office visit with ELECTRONIC IMAGING SYSTEM OPERATOR 06/05/2020: She is here under the [...] also been advised to follow-up with her research hydrologist. Prior to this recent illness she states she was able to lose 15 lb by eating healthier but she has now regained this weight. Currently she is drinking two 32 oz containers of water a day. Despite all this she states I feel fine. Office visit with ELECTRONIC IMAGING SYSTEM OPERATOR 07/12/2020: after her last office visit she had an echo showing diastolic dysfunction. She had appt with Dr. Esquivel who increased her furosemide (her perception is this is a temporary increase), and she is also now under the care of a research hydrologist Dr. 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 Leidy Voss 1945 Referring Loan Operations Specialist: Yasmany Esquivel Listing Date: Dialysis Info: Type: Time: (Not currently on dialysis) days Blood Type: There is no height or weight on file to calculate BMI. ALERTS Career Technology Teacher: Past Medical History: Diagnosis Date Arthropathy ankle [...] Procedure Laterality Date ANKLE SURGERY Right 10/15/2010 [facility] CARDIAC STERNAL PRECAUTION 09/10/2011 x2 Cholecystectomy, Open 1988 Coronary Artery Bypass Graft 11/14/2011 4 bypass HAND SURGERY 1990 carpal [facility]unnel [facility] Tonsillectomy 195 Social [...] Friends and Family: Not on file Attends Pentecostal Services: Not on file Active Member of [...] did remove several times a day for xjhwl-lg-xdmunp exercises Follow-up in 3 weeks, likely discontinue [...] blurry vision which was worked up at [facility]. No stroke was noted. Follow-up note 04/30/2018: [...] of her shoulder surgery. Office visit with ELECTRONIC IMAGING SYSTEM OPERATOR 06/05/2020: She is here under the [...] also been advised to follow-up with her research hydrologist. Prior to this recent illness she states she was able to lose 15 lb by eating healthier but she has now regained this weight. Currently she is drinking two 32 oz containers of water a day. Despite all this she states I feel fine. Office visit with ELECTRONIC IMAGING SYSTEM OPERATOR 07/12/2020: after her last office visit she had an echo showing diastolic dysfunction. She had appt with Dr. Esquivel who increased her furosemide (her perception is this is a temporary increase), and she is also now under the care of a research hydrologist Dr. 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 (CMS/HCC) (Primary) [...] sooner as clinically indicated Marcio Julien MD, [facility] Pertinent Previous Committee Presentations: Labs: [...] Signed By: Marcio Julien MD 2020-08-17 17:33:04 SHEET METAL OPERATOR [facility]: 11/11/2011 C CXR: CT abd/pelvis non-contrast: [...] 03/09/2012 Overview (12/24/2021): Coronary artery disease involving dry creek coronary artery of dry creek heart without angina pectoris Coronary artery disease involving dry creek coronary artery of dry creek heart without angina pectoris Resolved Problems Problem Noted Date Diagnosed Date Resolved Date Hyperkalemia 12/20/2021 03/17/2022 Pre-op examination 08/16/2020 2 Tinea pedis 03/10/2012 03/17/2022 Encounters Date Type Department Care Team Description 03/21/2025 Scan [email or web address] INFO SRVCS Scanned, Doc Med Group 02/06/2025 Results Follow-Up [address] [address] Radha Manuel MD MRI CERV SPINE WO CON, MRI BRAIN WO CON 02/03/2025 11:02 AM CDT - 02/03/2025 11:59 PM CDT Hospital Encounter [facility] [address] [place] [address] Radha Manuel MD Discharge Disposition: Home or Self Care (Routine Discharge) 02/03/2025 Travel 01/26/2025 11:40 AM CDT Office Visit [address] [address] Radha Manuel MD Follow Up (Patient is an established patient and is here to discuss getting an MRI of the Brain. ) 01/26/2025 Scan HEALTH INFO SRVCS Scanned, Doc Med Group 01/26/2025 Travel 01/20/[address] [address] Radha Manuel MD MRI/CT Orders 01/11/2025 1:40 PM CDT Office Visit [address] [address] Radha Manuel MD Swelling (Patient is an established patient and is here for swelling in her right toe and bumps on top of right foot, but they went away this am. She also states she has had a headache for last 2 weeks and has completed 6 weeks of therapy.) 01/11/2025 Travel 01/09/[address] [address] Radha Manuel MD Update; MRI/CT Orders 01/03/2025 Scan HEALTH INFO SRVCS Scanned, Doc Med [...] Date Recorded Patient Health Questionnaire-2 Score 0 01/26/2025 Comments No Sex and Gender Information Value Date Recorded Sex Assigned at Female 07/27/2024 3:06 PM SHEET METAL OPERATOR Legal Sex Female 9:21 PM CDT Gender Identity Not on file Sexual Orientation Not on file Last Filed Vital Signs Vital Sign Reading Time Taken Comments Blood Pressure 99/61 01/26/2025 11:45 AM CDT Pulse 63 01/26/2025 11:45 AM CDT Temperature 36.4 C (97.6 F) 01/26/2025 11:45 AM CDT Respiratory Rate 16 09/30/2024 1:16 PM CDT Oxygen Saturation 97% 01/26/2025 11:45 AM CDT Inhaled Oxygen Concentration - - Weight 61.2 kg (135 lb) 01/26/2025 11:45 AM CDT Height 149.9 cm (4' 11) 01/26/2025 11:45 AM CDT Body Mass Index 27.27 01/26/2025 11:45 AM CDT Plan of Treatment Upcoming Encounters Date Type Department Care Team (Late st Contact Info) Description 06/08/2025 8:30 AM SHEET METAL OPERATOR Appointment [facility] [place] [facility] GENERAL INTERNIST AND PHYSICIAN LEADER Mammography [address] [place] [address] Radha Manuel MD [address] [place] [address] [id number] Health Maintenance Due Date Last Done Comments DTaP, Tdap and Td Vaccines (1 - Tdap) 1964 Zoster Vaccines (1 of 2) 1995 Annual Medicare Wellness Visit 2010 Dexa Scan (General) 2010 RSV Immunization or 60+ Years (1 - 1-dose 75+ series) 2020 ASCVD LDL 08/11/2024 08/11/2023, 0701/2022, 12/22/2021, Additional history exists Diabetes: Retinopathy Eye Exam 08/19/2024 08/19/2022 Lipid Panel 12/07/2024 12/08/2023, 0212/2023, 01/09/2022, Additional history exists COVID-19 Vaccine ( season) 2025 Hemoglobin A1C 05/19/2025 11/16/2024, 04/05, 12/08/2023, Additional history exists Pneumococcal Vaccine: 50+ Years Completed 03/06/2017, 06/06/2015, 05/16/2013 Hepatitis C Completed 01/07/2023 PHQ-2 (Physician Mar[place]) Completed 01/26/2025 Meningococcal B Vaccine Aged Out No l onger eligible based on patient's age to complete this topic Meningococcal Vaccine Aged Out No chapis melodie eligible based on patient's age to complete this topic RSV Immunizations Under 20 Months Aged Out No longer eligible based on patient's age to complete this topic Procedures Procedure Name Priority Date/Time Associated Diagnosis Comments MRI BRAIN WO CON Routine 02/03/2025 11:2 4 AM CDT TIA (transient ischemic attack) MRI CERV SPINE WO CON Routine 02/03/2025 11:24 AM CDT Back pain HEMOGLOBIN, GLYCOSYLATED Routine 11/16/2024 1:24 PM CDT Neck pain Nonintractable headache, unspecified chronicity pattern, unspecified headache type Type 2 diabetes mellitus with chronic kidney disease on chronic dialysis, without long-term current use of insulin ([facility]) LIPID PANEL Routine 08/11/2023 12:00 PM SHEET METAL OPERATOR 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 No acute intracranial abnormality. 2. Mild to moderate chronic ischemic changes of the white matter with mild to moderate atrophy.. Referred By: RADHA MANUEL Interpreted By: Bharat King MD, 02/04/2025 12:29 PM Narrative 02/04/2025 12:33 PM CDT [place] [id number] Examination: MRI BRAIN WO CON Exam time: 02/03/2025 11:04 AM Clinical history: Headaches. TIAs. Comparison: Patient had old studies in 2017. Technique: Imaging is without contrast. Findings: The images available are of marginal technical quality because of motion and artifacts. There is no evidence of intracranial hemorrhage. In the posterior fossa there are no space occupying lesions. The cerebellopontine angles are unremarkable. In the frontal fossa and the temporal fossa there are no masses. In the brain parenchyma there are scattered FLAIR hyperintensities compatible with chronic ischemic changes of fdcs-ml-dwwjbxla degree. There is mild to moderate cortical atrophy. These appear perhaps mildly progressed since 2017. The diffusion images show no evidence of acute infarct. There is no acute extra-axial fluid. The central vessels show optimal flow void. The dural sinuses are patent. Mastoid air cells demonstrate chronic mild decrease in the aeration in the inferior mastoid air cells. The paranasal sinuses are unremarkable. Within the orbits no abnormalities. The central structures show no acute findings. Procedure Note Bharat King MD - 02/04/[address] [id number] Examination: MRI BRAIN WO CON Exam time: 02/03/2025 11:04 AM Clinical history: Headaches. TIAs. Comparison: Patient had old studies in 2017. Technique: Imaging is without contrast. Findings: The images available are of marginal technical quality becauseof motion and artifacts. There is no evidence of intracranial hemorrhage. In the posterior fossathere are no space occupying lesions. The cerebellopontine angles areunremarkable. In the frontal fossa and the temporal fossa there are no masses. In the brain parenchyma there are scattered FLAIR hyperintensitiescompatible with chronic ischemic changes of rfew-ao-eizwqyxw degree.There is mild to moderate cortical atrophy. These appear perhaps mildlyprogressed since 2017. The diffusion images show no evidence of acuteinfarct. There is no acute extra-axial fluid. The central vessels show optimal flow void. The dural sinuses arepatent. Mastoid air cells demonstrate chronic mild decrease in the aeration in theinferior mastoid air cells. The paranasal sinuses are unremarkable.Within the orbits no abnormalities. The central structures show no acutefindings. IMPRESSION: 1. No acute intracranial abnormality. 2. Mild to moderate chronic ischemic changes of the white matter withmild to moderate atrophy.. Referred By: RADHA MANUEL Interpreted By: Bharat King MD, 02/04/2025 12:29 PM us Radha Manuel MD MRI Final Result * MRI CERV SPINE WO CON (02/03/2025 11:24 AM CDT) Anatomical Region Laterality Modality Spine Magnetic Resonan ce 02/04/2025 12:3 6 PM CDT Impressions 02/04/2025 12:45 PM CDT IMPRESSION: Multilevel degenerative changes throughout the cervical spine as described. Referred By: RADHA MANUEL Interpreted By: Bharat King MD, 02/04/2025 12:36 PM Narrative 02/04/2025 12:45 PM CDT [address] [address] Examination: MRI CERV SPINE WO CON Exam time: 02/03/2025 11:04 AM Clinical history: Neck pain. Headaches. Comparison: Prior studies are radiographs November 16, 2024. Technique: Routine imaging MRI cervical spine. Findings: There is no malalignment at the craniocervical junction. The C1 and C2 relation is within normal limits. There are at least moderate degenerative changes at the atlantooccipital joint and the C1 and C2 articulation. Arthritic changes at the facet joints of at least moderate degree worse in the upper and mid cervical levels and also at the cervicothoracic junction. The height of the cervical vertebra well maintained. There are at least moderate degenerative changes at the endplates of the cervical spine starting at the level of C3. C2-3: Moderate degenerative changes are present. There is mild to moderate endplate hypertrophy and diffuse calcified bulge. There is moderate facet disease on both sides worse on the right. There is narrowing of the neural foramen of bvfw-yn-mtqdnnow degree. The AP dimension of the central canal is around 6 mm indicating moderate stenosis with mild mass effect on the spinal cord cord. C3-4: Moderate degenerative changes with endplate spondylosis and calcified diffuse disc bulge. AP dimension of the central canal is around 7.6 mm indicating mild stenosis with borderline mass effect on the spinal cord. There is moderate narrowing of the neural foramen bilaterally. C4-5: Moderate degenerative changes with diffuse moderate disc bulge and endplate spondylosis extending into the neural foramen with at least moderate narrowing of the neural foramen on both sides. Foraminal stenosis is worse on the right. There is mild to moderate narrowing of the central canal with AP dimension around 6.7 mm. C5-6: Moderate degenerative changes are present with diffuse calcified bulge and prominent endplate spondylosis. There is moderate calcified protrusion right to the midline deforming the dural sac. The AP dimension of the canal is 8.3 mm indicating mild stenosis. There is bilateral foraminal stenosis of meef-ku-pukfxupo degree more pronounced on the right. C6/7: Degenerative changes. There is mild diffuse calcified bulge and endplate spondylosis with mild narrowing of the neural foramen. There is mild to moderate narrowing of the central canal with AP dimension around 6.6 mm. C7-T1: Moderate degenerative changes. There is mild to moderate narrowing of the neural foramen with mild facet disease bilaterally worse on the left. Mild narrowing of the central canal with AP dimension 7.6 mm. In the upper thoracic levels mild degenerative changes with mild narrowing of the neural foramen at T1-T2 and T2-3. Similar findings at T3-4 with szku-pr-ddcrtkjk facet disease and diffuse calcified bulge. Within the central canal there are no abnormal densities. The spinal cord maintains normal signal especially with attention to the level C2-3, C4-5 and C6/7. There are however artifacts somewhat limiting detail of the spinal cord. The visualized paraspinal soft tissues are unremarkable. Procedure Note Bharat King MD - 02/04/2025 [address] [place] [address] Examination: MRI CERV SPINE WO CON Exam time: 02/03/2025 11:04 AM Clinical history: Neck pain. Headaches. Comparison: Prior studies are radiographs November 16, 2024. Technique: Routine imaging MRI cervical spine. Findings: There is no malalignment at the craniocervical junction. The C1and C2 relation is within normal limits. There are at least moderatedegenerative changes at the atlantooccipital joint and the C1 and P6falshxuhahdh. Arthritic changes at the facet joints of at least moderatedegree worse in the upper and mid cervical levels and also at thecervicothoracic junction. The height of the cervical vertebra well maintained. There are at leastmoderate degenerative changes at the endplates of the cervical spinestarting at the level of C3. C2-3: Moderate degenerative changes are present. There is mild tomoderate endplate hypertrophy and diffuse calcified bulge. There ismoderate facet disease on both sides worse on the right. There isnarrowing of the neural foramen of bupf-gh-ngxbmvrl degree. The APdimension of the central canal is around 6 mm indicating moderate stenosiswith mild mass effect on the spinal cord cord. C3-4: Moderate degenerative changes with endplate spondylosis andcalcified diffuse disc bulge. AP dimension of the central canal is around7.6 mm indicating mild stenosis with borderline mass effect on the spinalcord. There is moderate narrowing of the neural foramen bilaterally. C4-5: Moderate degenerative changes with diffuse moderate disc bulge andendplate spondylosis extending into the neural foramen with at leastmoderate narrowing of the neural foramen on both sides. Foraminalstenosis is worse on the right. There is mild to moderate narrowing ofthe central canal with AP dimension around 6.7 mm. C5-6: Moderate degenerative changes are present with diffuse calcifiedbulge and prominent endplate spondylosis. There is moderate calcifiedprotrusion right to the midline deforming the dural sac. The AP dimensionof the canal is 8.3 mm indicating mild stenosis. There is bilateralforaminal stenosis of fxvd-xe-juvjkffr degree more pronounced on theright. C6/7: Degenerative changes. There is mild diffuse calcified bulge andendplate spondylosis with mild narrowing of the neural foramen. There ismild to moderate narrowing of the central canal with AP dimension around6.6 mm. C7-T1: Moderate degenerative changes. There is mild to moderate narrowingof the neural foramen with mild facet disease bilaterally worse on theleft. Mild narrowing of the central canal with AP dimension 7.6 mm. In the upper thoracic levels mild degenerative changes with mild narrowingof the neural foramen at T1-T2 and T2-3. Similar findings at T3-4 unnsoqpg-vk-dyulezyb facet disease and diffuse calcified bulge. Within the central canal there are no abnormal densities. The spinal cordmaintains normal signal especially with attention to the level C2-3, C4-5and C6/7. There are however artifacts somewhat limiting detail of thespinal cord. The visualized paraspinal soft tissues are unremarkable. IMPRESSION: Multilevel degenerative changes throughout the cervical spine asdescribed. Referred By: RADHA MANUEL Interpreted By: Bharat King MD, 02/04/2025 12:36 PM Radha Manuel MD MRI Final Result * (ABNORMAL) HEMOGLOBIN, GLYCOSYLATED (11/16/2024 1:24 PM CDT) HGB A1C 5.7 4.5 - 6.2 % 11/16/2024 6:[address] ESTIMATED AVG GLUCOSE 117(H) 74 - 106 MG/DL 11/16/2024 6:33 [address] 11/16/2024 1:24 PM CDT Radha Manuel MD LABORATORY Final Result [facility] [place] [address], * (ABNORMAL) LIPID PANEL (08/11/2023 12:00 PM SHEET METAL OPERATOR) CHOLESTEROL 139 0 - 199 MG/DL 08/11/2023 2:[address] [facility] TRIGLYCERIDES 309(H) 0 - 149 MG/DL 08/11/2023 2:[address] [facility] HDL 44 >39 MG/DL 08/11/2023 2:[address] [facility] LDL (CALCULATED) 33 <100 MG/DL 08/11/19 24 2:[address] [facility] VLDL CALCULATION 62 MG/DL 08/11/19 24 2:[address] [facility] Comment:REFERENCE RANGE NOT ESTABLISHED CHOL/HDL RATIO 3.2 08/11/2023 2:[address] [facility] Comment:REFERENCE RANGE NOT ESTABLISHED LDL/HDL 1.0 08/11/2023 2:[address] [facility] Comment:REFERENCE RANGE NOT ESTABLISHED NON HDL CHOLESTEROL 95 MG/DL 08/11/2023 2:[address] [facility] Comment:REFERENCE RANGE NOT ESTABLISHED 08/11/2023 12:0 0 PM SHEET METAL OPERATOR Nicol Monteiro LEARNING COORDINATOR LABORATORY Final Res ult [facility] [address] [place] [address], * DIABETIC RETINOPATHY EXAM (NEGATIVE)(SCAN) (08/19/2022) [facility] Scanned SCANNING Final Resu lt [facility] ONBASE from Last 3 Months or Most Recently Relevant to Health Maintenance Additional Health Concerns Infection Onset Date Last Indicated ESBL - Extended Spectrum Beta-lactamase 02/04/20 23 02/03/2023 Insurance MEDICARE [facility] MEDICARE Advance Directives Documents on File Type Date Recorded Patient Raw Stock Machine Feeder Expl anation Advance Directives and Living Will 01/10/2022 2:33 PM 09/12/2021 [facility] * Full Code (Latest Code Status on File) Date Activated Date Inactivated Comments 04/16/2022 11:43 AM 04/21/2022 3:50 PM * Full Code Date Activated Date Inactivated Comments 03/07/2022 3:16 PM 03/08/2022 3:18 PM * Full Code Date Activated Date Inactivated Comments 01/09/2022 7:59 AM 01/11/2022 7:51 PM * Full Code Date Activated Date Inactivated Comments 12/22/2021 12:17 AM 12/24/2021 2:13 PM Care Teams Store Clerk Checker Relationship Specialty Start Date End Date Radha Manuel MD [address] [place] [address] PCP - General FAMILY PRACTICE 09/30/22
--- OUTSIDE RECORDS SUMMARY | 2025-04-03 12:25 | XMS_ITS | Encounter Summary ---
Author Organization [facility] Address [facility] [place] [address] Care Team Providers Care Technical Operations Vice President Name Role Phone Radha Brock MD Primary Care Provider [phone] Radha Brock MD Primary Care Provider [phone] Encounter Details Date Type Department Care Team ([facility] Contact Info) Description 02/20/2020 Community Orders [facility] EPICCARE LINK Nicol Monteiro FNP Social History Tobacco Use Types Packs/Day Years Used Date Smoking Tobacco: Never Comments No Sex and Gender Information Value Date Recorded Sex Assigned at Female 07/27/2024 3:06 PM TRAVEL MANAGER Legal Sex Female 9:21 PM CDT Gender [...] Upcoming Encounters Date Type Department Care Team ([facility] Contact Info) Description 06/08/2025 8:30 AM TRAVEL MANAGER Appointment [facility] CONCRETE PAVING SUPERVISOR Mammography [address] [place] [address] Radha Brock MD [address] [place] [address] documented as of this encounter Results * (ABNORMAL) VITAMIN D, 25 OH (02/21/2020 11:03 AM CDT) VITAMIN D 25 HYDROXY S/P/B 17.9(L) 30.0 - 50.0 NG/ML 02/21/2020 2:23 PM CDT [facility] Comment: DEFICIENCY <20 ng/mL INSUFFICIENCY 20-<30 ng/mL SUFFICIENCY 30-50 ng/mL 02/21/2020 11:0 3 AM CDT Nicol Prahba Thania [facility] F inal Result Performing Organization Address [facility] Co de Phone Number [facility] [address] [place] [address], * (ABNORMAL) HEMOGLOBIN, GLYCOSYLATED (02/21/2020 11:03 AM CDT) HGB A1C 7.2(H) 4.2 - 6.3 % 02/21/2020 12:36 PM CDT [facility] Comment: ADA GUIDELINES 5.7 TO 6.4% INCREASED RISK OF DIABETES > OR = 6.5% CONSISTENT WITH DIABETES ESTIMATED AVG GLUCOSE 160(H) 74 - 106 MG/DL 02/21/2020 12:36 PM CDT [facility] 02/21/2020 11:0 3 AM CDT [facility] F inal Result Performing Organization Address [facility]/ZIP Co de Phone Number [facility] [address] [place] [address], * LIPID PANEL (02/21/2020 11:03 AM CDT) CHOLESTEROL 140 0 - 199 MG/DL 02/21/2020 12:34 PM CDT [facility] TRIGLYCERIDES 123 0 - 149 MG/DL 02/21/2020 12:34 PM CDT [facility] HDL 43 >39 MG/DL 02/21/2020 12:34 PM CDT [facility] LDL (CALCULATED) 72 <100 MG/DL 02/21/20 12:34 PM CDT [facility] VLDL CALCULATION 25 MG/DL 02/21/20 12:34 PM CDT [facility] Comment:REFERENCE RANGE NOT ESTABLISHED CHOL/HDL RATIO 3.3 02/21/2020 12:34 PM CDT [facility] Comment:REFERENCE RANGE NOT ESTABLISHED LDL/HDL 2.0 02/21/2020 12:34 PM CDT [facility] Comment:REFERENCE RANGE NOT ESTABLISHED NON HDL CHOLESTEROL 97 MG/DL 02/21/2020 12:34 PM CDT [facility] Comment:REFERENCE RANGE NOT ESTABLISHED 02/21/2020 11:0 3 AM CDT Nicol Monteiro [facility] F inal Result [facility] [address] [place] [address], * (ABNORMAL) COMPREHENSIVE METABOLIC PANEL (02/21/2020 11:03 AM CDT) SODIUM S/P/B 141 136 - 145 MMOL/L 02/21/2020 12:34 PM CDT [facility] POTASSIUM S/P/B 5.8(H) 3.5 - 5.1 MMOL/L 02/21/2020 12:34 PM CDT [facility] CHLORIDE S/P/B 113(H) 98 - 107 MMOL/L 02/21/2020 12:34 PM CDT [facility] CO2 22.0 21.0 - 32.0 MMOL/L 02/21/2020 12:34 PM CDT [facility] GLUCOSE 127(H) 74 - 106 MG/DL 02/21/2020 12:34 PM [facility] BUN 58(H) 7 - 18 MG/DL 02/21/2020 12:34 PM [facility] CREATININE S/P/B 2.54(H) 0.55 - 1.02 MG/DL 02/21/2020 12:34 PM T [facility] CALCIUM S/P/B 10.1 8.5 - 10.1 MG/DL 02/21/2020 12:34 PM T [facility] BILIRUBIN TOTAL S/P/B 0.3 0.2 - 1.0 MG/DL 02/21/2020 12:34 PM [facility] ALKALINE PHOSPHATASE S/P/B 78 45 - 117 U/L 02/21/2020 12:34 PM [facility] AST 13(L) 15 - 37 U/L 02/21/2020 12:34 PM [facility] ALT 18 13 - 56 U/L 02/21/2020 12:34 PM [facility] TOTAL PROTEIN S/P/B 7.8 6.4 - 8.2 G/DL 02/21/2020 12:34 PM [facility] ALBUMIN S/P/B 3.3(L) 3.4 - 5.0 G/DL 02/21/2020 12:34 PM T [facility] ANION GAP 6.0 5.0 - 15.0 MMOL/L 02/21/2020 12:34 PM [facility] OSMOLALITY (CALC) 310 MOSM/KG 020 12:34 PM [facility] Comment:REFERENCE RANGE NOT ESTABLISHED EGFR NON-AFR. AMER. 18(L) >89 ML/MIN/1. 73 M2 02/21/2020 12:34 PM [facility] EGFR AFR. AMER. 21(L) >89 ML/MIN/1. 73 M2 02/21/2020 12:34 PM CDT [facility] GFR NOTES GFR REFERENCE S: 02/21/2020 12:34 PM CDT [facility] Comment: THE ESTIMATED GFR IS CALCULATED [...] 11:0 3 AM CDT us Nicol Monteiro [facility] F inal Result [facility] [address] [place] [address], * (ABNORMAL) CBC W/DIFF AUTOMATED (02/21/2020 11:03 AM CDT) WBC 9.5(H) 4.6 - 9.1 x10'3/uL 02/21/2020 12:15 PM CDT [facility] RBC 3.37(L) 3.90 - 5.00 x10'6/uL 02/21/2020 12:15 PM CDT [facility] HGB 9.5(L) 11.8 - 14.7 G/DL 02/21/2020 12:15 PM CDT [facility] HCT 30.6(L) 36.3 - 45.2 % 02/21/2020 12:15 PM CDT [facility] MCV 90.8 80.0 - 98.0 FL 02/21/2020 12:15 PM CDT [facility] MCH 28.2 26.8 - 32.1 PG 02/21/2020 12:15 PM CDT [facility] MCHC 31.0 30.7 - 34.2 G/DL 02/21/2020 12:15 PM CDT [facility] RDW 14.1 12.0 - 14.8 % 02/21/2020 12:15 PM CDT [facility] PLT 233 145 - 358 x10'3/uL 02/21/2020 12:15 PM CDT [facility] MPV 9.5 8.8 - 12.3 FL 02/21/2020 12:15 PM CDT [facility] SEG NEUTROPHILS 68.4 % 0 12:15 PM CDT [facility] LYMPHOCYTES 19.8 % 02/21/2020 12:15 PM CDT [facility] MONOCYTES 7.8 % 02/21/2020 12:15 PM CDT [facility] EOSINOPHILS 3.0 % 02/21/2020 12:15 PM CDT [facility] BASOPHILS 0.6 % 02/21/2020 12:15 PM CDT [facility] IMMATURE GRANS % 0.4 % 02/21/20 20 12:15 PM CDT [facility] NRBC 0.0 % 02/21/2020 12:15 PM CDT [facility] ABS. NEUTROPHILS 6.51(H) 2.30 - 5.70 x10'3/uL 02/21/2020 12:15 PM CDT [facility] ABS. LYMPHOCYTES 1.89 1.10 - 3.30 x10'3/uL 02/21/2020 12:15 PM CDT [facility] ABS. MONOCYTES 0.74 0.30 - 0.80 x10'3/uL 02/21/2020 12:15 PM CDT [facility] ABS. EOSINOPHILS 0.29 0.03 - 0.45 x10'3/uL 02/21/2020 12:15 PM CDT [facility] ABS. BASOPHILS 0.06 0.01 - 0.09 x10'3/uL 02/21/2020 12:15 PM CDT [facility] ABS. IMMATURE GRANULOCYTES 0.04 0.00 - 0.09 x10'3/uL 02/21/2020 12:15 PM CDT [facility] ABS. NUCLEATED RBC'S 0.00 0.00 - 0.12 x10'3/uL 02/21/2020 12:15 PM CDT [facility] 02/21/2020 11:0 3 AM CDT Nicol Monteiro [facility] F inal Result [facility] [address] [place] [address], documented in this encounter Visit Diagnoses Diagnosis Diabetes (CMS/HCC HHS/HCC)- Primary Hypertension Unspecified essential hypertension Chronic kidney disease Chronic kidney disease, unspecified Vitamin D deficiency Unspecified vitamin D deficiency documented in this encounter Additional Health Concerns Infection Onset Date Last Indicated Resolved Time COVID-19 Rule Out 02/18/2021 02/18/2021 02/18/2021 4:07 PM CDT COVID-19 Rule Out 06/05/2021 06/05/2021 06/06/2021 8:02 AM TRAVEL MANAGER COVID-19 Rule Out 08/31/2021 08/31/2021 08/31/2021 1:35 AM TRAVEL MANAGER COVID-19 Rule Out 03/06/2022 03/06/2022 03/06/2022 9:42 PM CDT COVID-19 Rule Out 04/16/2022 04/16/2022 04/16/2022 5:15 AM CDT COVID-19 Rule Out 04/16/2022 04/16/2022 04/16/2022 10:56 PM CDT ESBL - Extended Spectrum Beta-lactamase 02/03/2023 02/03/2023 documented as of this encounter Care Teams Technical Operations Vice President Relationship Specialty Start Date End Date Radha Brock MD [address] [place] [address] PCP - General FAMILY PRACTICE 12/31/18 09/29/22 Radha Brock MD [address] [place] [address] PCP - General FAMILY PRACTICE 09/30/22 documented as of this encounter
--- OUTSIDE RECORDS SUMMARY | 2025-04-03 12:25 | XMS_ITS | Encounter Summary ---
Author Organization [facility] Address [facility] [place] [address] Care Team Providers Care Ripening Room Hand Name Role Phone Radha Brock MD Primary Care Provider [phone] Radha Brock MD Primary Care Provider [phone] Encounter Details Date Type Department Care Team ([facility] Contact Info) Description 04/30/2020 Community Orders [facility] EPICCARE LINK Radha Brock MD [address] [place] [address] Social History Tobacco Use Types Packs/Day Years Used Date Smoking Tobacco: Never Comments No Sex and Gender Information Value Date Recorded Sex Assigned at Female 07/27/2024 3:06 PM COLLEGE SERVICE OFFICER Legal Sex Female 9:21 PM CDT [...] Upcoming Encounters Date Type Department Care Team ([facility] Contact Info) Description 06/08/2025 8:30 AM COLLEGE SERVICE OFFICER Appointment [facility] FIBERGLASS BONDING MACHINE TENDER Mammography [address] [place] [address] Radha Brock MD [address] [place] [address] documented as of this encounter [...] Rule Out 06/05/2021 06/05/2021 06/06/2021 8:02 AM COLLEGE SERVICE OFFICER COVID-19 Rule Out 08/31/2021 08/31/2021 08/31/2021 1:35 AM COLLEGE SERVICE OFFICER COVID-19 Rule Out 03/06/2022 03/06/2022 03/06/2022 9:42 PM CDT COVID-19 Rule Out 04/16/2022 04/16/2022 04/16/2022 5:15 AM CDT COVID-19 Rule Out 04/16/2022 04/16/2022 04/16/2022 10:56 PM CDT ESBL - Extended Spectrum Beta-lactamase 02/03/2023 02/03/2023 documented as of this encounter Care Teams Ripening Room Hand Relationship Specialty Start Date End Date Radha Brock MD [address] [place] [address] PCP - General FAMILY PRACTICE 12/31/18 09/29/22 Radha Brock MD [address] [place] [address] PCP - General FAMILY PRACTICE 09/30/22 documented as of this encounter
--- OUTSIDE RECORDS SUMMARY | 2025-04-03 12:25 | XMS_ITS | Clinical Summary ---
Author Organization [facility] Address [address] [facility] [place] [address] Care Team Providers Care Gore Seamer Name Role Phone Radha Brock MD Primary Care Provider [phone] Source Comments [facility],non-owned Affiliates and Associated Physician Practices is amultiple site organization consisting of ambulatory clinics and hospital sitesin [place], [place], [place] and [place]. This disclosure is being madepursuant to the Care Everywhere program and may not contain all information available regarding this patient. Last updated 18.[facility] Allergies Active Allergy Reactions Criticality Noted Date [...] Date Cerebrovascular accident (CVA) [facility] 12/07/2023 Hypoxemia requiring supplemental oxygen 08/28/19 22 Pre-transplant evaluation for kidney transplant 04/09/2021 Overview (04/11/2021): Images from the original note were not included. Leidy Voss 1945 Referring Oracle Wms Consultant: Yasmany Esquivel Listing Date: Dialysis Info: Type: Time: (Not currently on dialysis) days Blood Type: There is no height or weight on file to calculate BMI. ALERTS Retort Condenser Attendant: Past Medical History: Diagnosis Date Arthropathy ankle [...] Procedure Laterality Date ANKLE SURGERY Right 10/15/2010 [facility] CARDIAC STERNAL PRECAUTION 09/10/2011 x2 Cholecystectomy, Open 1988 Coronary Artery Bypass Graft 11/14/2011 4 bypass HAND SURGERY 1990 carpal Tunnel Hysterectomy 1985 total. Kirsten Hatch [facility] SHOULDER PROCEDURE/SURGERY 2019 Tonsillectomy 195 [...] Friends and Family: Not on file Attends Christianity Services: Not on file Active Member of [...] did remove several times a day for dgytb-fk-suqmfx exercises Follow-up in 3 weeks, likely discontinue [...] blurry vision which was worked up at [place]. No stroke was noted. Follow-up note 04/30/2018: [...] of her shoulder surgery. Office visit with SPECIAL SERVICE OFFICER 06/05/2020: She is here under the advice [...] also been advised to follow-up with her principal technical writer. Prior to this recent illness she states she was able to lose 15 lb by eating healthier but she has now regained this weight. Currently she is drinking two 32 oz containers of water a day. Despite all this she states I feel fine. Office visit with SPECIAL SERVICE OFFICER 07/12/2020: after her last office visit she had an echo showing diastolic dysfunction. She had appt with Dr. Esquivel who increased her furosemide (her perception is this is a temporary increase), and she is also now under the care of a principal technical writer Dr. 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 No 12/08/2023 Comments Unknown Sex and Gender Information Value Date Recorded Sex Assigned at Not on file Legal Sex Female 5:51 AM CAMPUS SECURITY DIRECTOR Gender Identity Not on file Sexual Orientation [...] yrs (1 - 1-dose 75+ series) 2020 DEPRESSION SCREENING 07/06/2024 COVID-19 VACCINE ( - season) 2025 INFLUENZA VACCINE (#1) 2025 2, 04/21/2022, 07/19/2021, [...] this topic Medical Devices Implanted Type Area Stage Setting Painter Apprentice Device Identifier Shelf Expiration Date Model / Serial / Lot Wire K .045in X 5.5in Implanted:Qty: 1 on 08/28/2021 by Óscar Fleming MD at [facility] Right: [employer] 0 / / Insurance [facility] MEDICARE [facility] MEDICARE [facility] Advance Directives * Full Code (Latest Code Status on File) Date Activated Date Inactivated Comments 12/08/2023 10:50 AM 12/09/2023 3:26 PM * Full Code Date Activated Date Inactivated Comments 08/28/2021 7:41 PM 08/29/2021 5:15 PM Care Teams Gore Seamer Relationship Specialty Start Date End Date Radha Brock MD [address] [place] [phone] PCP - General Family Medicine 03/03/14
--- OUTSIDE RECORDS SUMMARY | 2025-04-03 12:25 | XMS_ITS | Encounter Summary ---
Author Organization [facility] Address [address] [place] [address] Care Team Providers Care Inspecting And Testing Lead Hand Name Role Phone Radha Brock MD Primary Care Provider [phone] Radha Brock MD Primary Care Provider [phone] Encounter Details Date Type Department Care Team (Late Contact Info) Description 12/11/[address] [facility] [address] [place] [address] , Generic ConversionMD Social History Tobacco Use Types Packs/Day Years Used Date Smoking Tobacco: Never Comments Unknown Sex and Gender Information Value Date Recorded Sex Assigned at Female 07/27/2024 3:06 PM HISTOLOGIST Legal Sex Female 9:21 PM CDT Gender Identity Not on file Sexual Orientation Not on file documented as of this encounter Plan of Treatment Upcoming Encounters Date Type Department Care Team (Late Contact Info) Description 06/08/2025 8:30 AM HISTOLOGIST Appointment [facility] STUD DAIRY CATTLE FARMER Mammography [address] [place] [address] Radha Brock MD [address] [place] [address] documented as of this encounter Visit Diagnoses Not on filedocumented in this encounter Additional Health Concerns Infection Onset Date Last Indicated Resolved Time COVID-19 Rule Out 02/18/2021 02/18/2021 02/18/2021 4:07 PM CDT COVID-19 Rule Out 06/05/2021 06/05/2021 06/06/2021 8:02 AM HISTOLOGIST COVID-19 Rule Out 08/31/2021 08/31/2021 08/31/2021 1:35 AM HISTOLOGIST COVID-19 Rule Out 03/06/2022 03/06/2022 03/06/2022 9:42 PM CDT COVID-19 Rule Out 04/16/2022 04/16/2022 04/16/2022 5:15 AM CDT COVID-19 Rule Out 04/16/2022 04/16/2022 04/16/2022 10:56 PM CDT ESBL - Extended Spectrum Beta-lactamase 02/03/2023 02/03/2023 documented as of this encounter Care Teams Inspecting And Testing Lead Hand Relationship Specialty Start Date End Date Radha Brock MD [address] [place] [address] PCP - General FAMILY PRACTICE 12/31/18 09/29/22 Radha Brock MD [address] [place] [address] PCP - General FAMILY PRACTICE 09/30/22 documented as of this encounter
--- OUTSIDE RECORDS SUMMARY | 2025-04-03 12:25 | XMS_ITS | Encounter Summary ---
Author Organization [facility] Address [address] [place] [address] Care Team Providers Care Steam Bone Press Tender Name Role Phone Radha Brock MD Primary Care Provider [phone] Radha Brock MD Primary Care Provider [phone] Encounter Details Date Type Department Care Team (Late Contact Info) Description 06/15/2017 Abstract [facility] Conversion [address] [place] [address] , Generic ConversionMD Social History Tobacco Use Types Packs/Day Years Used Date Smoking Tobacco: Never Comments Unknown Sex and Gender Information Value Date Recorded Sex Assigned at Female 07/27/2024 3:06 PM SUGAR REFINER Legal Sex Female 9:21 PM CDT Gender Identity Not on file Sexual Orientation Not on file documented as of this encounter Plan of Treatment Upcoming Encounters Date Type Department Care Team (Late Contact Info) Description 06/08/2025 8:30 AM SUGAR REFINER Appointment [facility] [place] RN LIAISON Mammography [address] [place] [address] Radha Brock MD [address] [place] [address] documented as of this encounter Visit Diagnoses Not on filedocumented in this encounter Additional Health Concerns Infection Onset Date Last Indicated Resolved Time COVID-19 Rule Out 02/18/2021 02/18/2021 02/18/2021 4:07 PM CDT COVID-19 Rule Out 06/05/2021 06/05/2021 06/06/2021 8:02 AM SUGAR REFINER COVID-19 Rule Out 08/31/2021 08/31/2021 08/31/2021 1:35 AM SUGAR REFINER COVID-19 Rule Out 03/06/2022 03/06/2022 03/06/2022 9:42 PM CDT COVID-19 Rule Out 04/16/2022 04/16/2022 04/16/2022 5:15 AM CDT COVID-19 Rule Out 04/16/2022 04/16/2022 04/16/2022 10:56 PM CDT ESBL - Extended Spectrum Beta-lactamase 02/03/2023 02/03/2023 documented as of this encounter Care Teams Steam Bone Press Tender Relationship Specialty Start Date End Date Radha Brock MD [address] [place] [address] PCP - General FAMILY PRACTICE 12/31/18 09/29/22 Radha Brock MD [address] [place] [address] PCP - General FAMILY PRACTICE 09/30/22 documented as of this encounter
--- OUTSIDE RECORDS SUMMARY | 2025-04-03 12:25 | XMS_ITS | Encounter Summary ---
Author Organization [facility] Address [facility] [place] [address] Care Team Providers Care Junior Art Director Name Role Phone Radha Brock MD Primary Care Provider [phone] Reason for Visit * Reason Onset Date Comments Results 02/06/2025 Encounter Details Date Type Department Care Team (Late st Contact Info) Description 02/06/2025 Results Follow-Up [facility] Family Medicine - [place] [address] [place] [address] Radha Brock MD [address] [place] [address] MRI CERV SPINE WO CON, MRI BRAIN WO CON Social History Tobacco Use Types Packs/Day Years Used Date Smoking Tobacco: Never Smokeless Tobacco: Never Alcohol Use Standard Drinks/Week Comments Not Currently 0 (1 standard drink = 0.6 oz pur e alcohol) rare PHQ-2 Answer Date Recorded Patient Health Questionnaire-2 Score 0 01/26/2025 Comments No Sex and Gender Information Value Date Recorded Sex Assigned at Female 07/27/2024 3:06 PM REHABILITATION CENTER MANAGER Legal Sex Female 9:21 PM CDT [...] Author Status No 04/16/2022 12:46 PM CDT Daniela Williamson RN Active documented as of this encounter Mental Status * Because of a physical, mental, or emotional condition, do you have serious difficulty concentrating, remembering, or making decisions? Answer Entry Date Author Status No 04/16/2022 12:46 PM CDT Daniela Williamson RN Active documented in this encounter Progress Notes * Argentina Mcmanus - 02/07/2025 9:24 AM CDT Patient called this morning asking if we can send these results to Dr. Willis at fax number [phone]. Patient states she spoke to his office on the phone and they informed her that Dr. Willis would like to review these results. documented in this encounter Plan of Treatment Upcoming Encounters Date Type Department Care Team (Late st Contact Info) Description 06/08/2025 8:30 AM REHABILITATION CENTER MANAGER Appointment [facility] ORNAMENTAL PAINTER Mammography [address] [place] [address] Radha Brock MD [address] [place] [id number] documented as of this encounter Visit Diagnoses Not on filedocumented in this encounter Additional Health Concerns Infection Onset Date Last Indicated Resolved Time ESBL - Extended Spectrum Beta-lactamase 02/03/2023 0 02/03/2023 Assessment Noted Time PHQ-9 Depression Total Score: 19 022 11:03 AM CDT documented as of this encounter Care Teams Junior Art Director Relationship Specialty Start Date End Date Radha Brock MD [address] [place] [address] PCP - General FAMILY PRACTICE 09/30/22 documented as of this encounter
--- OUTSIDE RECORDS SUMMARY | 2025-04-03 12:25 | XMS_ITS | Encounter Summary ---
Author Organization [facility] Address [facility] access hospital[address] [place] [address] Care Team Providers Care Electrical Software Engineer Name Role Phone Radha Brock MD Primary Care Provider [phone] Radha Brock MD Primary Care Provider [phone] Encounter Details Date Type Department Care Team (Latest Contact Info) Description 05/11/2018 Abstract [facility] , [place] Herrera MD Social History Tobacco Use Types Packs/Day Years Used Date Smoking Tobacco: Never Comments Unknown Sex and Gender Information Value Date Recorded Sex Assigned at Female 07/27/2024 3:06 PM WIRED MUSIC OPERATOR Legal Sex Female 9:21 PM CDT Gender Identity Not on file Sexual Orientation Not on file documented as of this encounter Plan of Treatment Upcoming Encounters Date Type Department Care Team (Late st Contact Info) Description 06/08/2025 8:30 AM WIRED MUSIC OPERATOR Appointment [facility] LINING BASTER Mammography [address] [place] [address] Radha Brock MD [address] [place] [address] documented as of this encounter Visit Diagnoses Not on filedocumented in this encounter Additional Health Concerns Infection Onset Date Last Indicated Resolved Time COVID-19 Rule Out 02/18/2021 02/18/2021 02/18/2021 4:07 PM CDT COVID-19 Rule Out 06/05/2021 06/05/202106/06/2021 8:02 AM WIRED MUSIC OPERATOR COVID-19 Rule Out 08/31/2021 08/31/2021 08/31/2021 1:35 AM WIRED MUSIC OPERATOR COVID-19 Rule Out 03/06/2022 03/06/2022 03/06/2022 9:42 PM CDT COVID-19 Rule Out 04/16/2022 04/16/2022 04/16/2022 5:15 AM CDT COVID-19 Rule Out 04/16/2022 04/16/2022 04/16/2022 10:56 PM CDT ESBL - Extended Spectrum Beta-lactamase 02/03/2023 02/03/2023 documented as of this encounter Care Teams Electrical Software Engineer Relationship Specialty Start Date End Date Radha Brock MD [address] [place] [address] PCP - General FAMILY PRACTICE 12/31/18 09/29/22 Radha Brock MD [address] [place] [address] PCP - General FAMILY PRACTICE 09/30/22 documented as of this encounter
--- OUTSIDE RECORDS SUMMARY | 2025-04-03 12:28 | XMS_ITS | Encounter Summary ---
Author Organization [facility] Address Critical access hospital[address] [place] [address] Care Team Providers Care Air Sealing Technician Name Role Phone Radha Brock MD Primary Care Provider [phone] Radha Brock MD Primary Care Provider [phone] Encounter Details Date Type Department Care Team (Late Contact Info) Description 07/22/1985 Abstract [facility] [address] [place] [address] , Generic ConversionMD Social History Tobacco Use Types Packs/Day Years Used Date Smoking Tobacco: Never Assessed Comments Unknown Sex and Gender Information Value Date Recorded Sex Assigned at Female 07/27/2024 3:06 PM PIT SHOVEL OPERATOR Legal Sex Female 9:21 PM CDT Gender Identity Not on file Sexual Orientation Not on file documented as of this encounter Plan of Treatment Upcoming Encounters Date Type Department Care Team (Late Contact Info) Description 06/08/2025 8:30 AM PIT SHOVEL OPERATOR Appointment [facility] FOOD SAFETY MANAGER Mammography [address] [place] [address] Radha Brock MD [address] [place] [address] documented as of this encounter Visit Diagnoses Not on filedocumented in this encounter Additional Health Concerns Infection Onset Date Last Indicated Resolved Time COVID-19 Rule Out 02/18/2021 02/18/2021 02/18/2021 4:07 PM CDT COVID-19 Rule Out 06/05/2021 06/05/2021 06/06/2021 8:02 AM PIT SHOVEL OPERATOR COVID-19 Rule Out 08/31/2021 08/31/2021 08/31/2021 1:35 AM PIT SHOVEL OPERATOR COVID-19 Rule Out 03/06/2022 03/06/2022 03/06/2022 9:42 PM CDT COVID-19 Rule Out 04/16/2022 04/16/2022 04/16/2022 5:15 AM CDT COVID-19 Rule Out 04/16/2022 04/16/2022 04/16/2022 10:56 PM CDT ESBL - Extended Spectrum Beta-lactamase 02/03/2023 02/03/2023 documented as of this encounter Care Teams Air Sealing Technician Relationship Specialty Start Date End Date Radha Brock MD [address] [place] [address] PCP - General FAMILY PRACTICE 12/31/18 09/29/22 Radha Brock MD [address] [place] [address] PCP - General FAMILY PRACTICE 09/30/22 documented as of this encounter
--- OUTSIDE RECORDS SUMMARY | 2025-04-03 12:28 | XMS_ITS | Encounter Summary ---
Author Organization [facility] Address [facility] [place] [address] Care Team Providers Care Patient Transport Officer Name Role Phone Radha Brock MD Primary Care Provider [phone] Radha Brock MD Primary Care Provider [phone] Encounter Details Date Type Department Care Team (Late Contact Info) Description 01/27/1988 Abstract [facility] [address] [place] [address] , Generic ConversionMD Social History Tobacco Use Types Packs/Day Years Used Date Smoking Tobacco: Never Assessed Comments Unknown Sex and Gender Information Value Date Recorded Sex Assigned at Female 07/27/2024 3:06 PM PICKER / PACKER Legal Sex Female 9:21 PM CDT Gender Identity Not on file Sexual Orientation Not on file documented as of this encounter Plan of Treatment Upcoming Encounters Date Type Department Care Team (Late Contact Info) Description 06/08/2025 8:30 AM PICKER / PACKER Appointment [facility] SUPPORT REPRESENTATIVE Mammography [address] [place] [address] Radha Brock MD [address] [place] [address] documented as of this encounter Visit Diagnoses Not on filedocumented in this encounter Additional Health Concerns Infection Onset Date Last Indicated Resolved Time COVID-19 Rule Out 02/18/2021 02/18/2021 02/18/2021 4:07 PM CDT COVID-19 Rule Out 06/05/2021 06/05/2021 06/06/2021 8:02 AM PICKER / PACKER COVID-19 Rule Out 08/31/2021 08/31/2021 08/31/2021 1:35 AM PICKER / PACKER COVID-19 Rule Out 03/06/2022 03/06/2022 03/06/2022 9:42 PM CDT COVID-19 Rule Out 04/16/2022 04/16/2022 04/16/2022 5:15 AM CDT COVID-19 Rule Out 04/16/2022 04/16/2022 04/16/2022 10:56 PM CDT ESBL - Extended Spectrum Beta-lactamase 02/03/2023 02/03/2023 documented as of this encounter Care Teams Patient Transport Officer Relationship Specialty Start Date End Date Radha Brock MD [address] [place] [address] PCP - General FAMILY PRACTICE 12/31/18 09/29/22 Radha Brock MD [address] [place] [address] PCP - General FAMILY PRACTICE 09/30/22 documented as of this encounter
--- OUTSIDE RECORDS SUMMARY | 2025-04-03 12:28 | XMS_ITS | Encounter Summary ---
Author Organization [facility] Address [address] [place] [address] Care Team Providers Care Brickmason Apprentice Name Role Phone Radha Brock MD Primary Care Provider [phone] Yasmany Esquivel MD Unavailable [phone] Mauricio Fairchild MD, Julian Hernandez Unavailable [phone] Encounter Details Date Type Department Care Team (Late st Contact Info) Description 01/28/2022 Orders Only [facility] Health Information Management [address] [place] [address] Scanning, Provider Social History Tobacco Use Types Packs/Day Years Used Date Smoking Tobacco: Never Smokeless Tobacco: Never Comments:exposed to heavy sm oker - 25 years Alcohol Use Standard Drinks/Week Comments Yes 0 (1 standard drink = 0.6 oz pur e alcohol) Social Connection and Isolation Panel Answer Date Recorded In a typical week, how many times do you talk on the phone with family, friends, or neighbors? More than three times a week 10/22/2021 How often do you get togethe r with friends or relatives? More than three times a week 10/22/2021 How often do you attend chur ch or buddhist services? More than 4 times per year 10/22/2021 Do you belong to any clubs o r organizations such as quaker groups, unions, fraternal or athletic groups, or school groups? No 10/22/2021 Attends Club or Organization Meetings Not on warren e 10/22/2021 Are you , , di vorced, , never , or living with a partner? 10/22/2021 AUDIT-C Answer Date Recorded Q1: How often do you have a drink containing alc ohol? Never 10/22/2021 Average Number of Drinks Not on file 022 Q3: How often do you have si x or more drinks on one occasion? Never 10/22/2021 Overall Financial Resource Strain (CARDIA) Answe r Date Recorded How hard is it for you to pa y for the very basics like food, housing, medical care, and heating? Not hard at all 10/22/2021 [facility] of Occupat ional Health - Occupational Stress [...] the money to buy more. Never true 10/23/19 22 Within the past 12 months, t he food you bought just didn't last and you didn't have money to get more. Never true 10/22/2021 PRAPARE - Transportation Answer Date Re corded In the past 12 months, has l ack of transportation kept you from medical appointments or from getting medications? No 10/04 In the past 12 months, has l ack of transportation kept you from meetings, work, or from getting things needed for daily living? No 10/22/2021 Housing Stability Vital Sign Answer Seth e Recorded In the last 12 months, was t here a time when you were not able to pay the mortgage or rent on time? No 10/22/2021 In the last 12 months, how many places have you lived? 1 10/22/2021 In the last 12 months, was t here a time when you did not have a steady place to sleep or slept in a prison (including now)? No 10/22/2021 Education Answer Date Recorded What is the highest level of school you have completed or the highest degree you have received? 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 Not on file Not on warren e documented as of this encounter Plan of Treatment Not on file documented as of this encounter Procedures Procedure Name Priority Date/Time Associated Diagnosis Comments SCAN - RADIOLOGY/IMAGING 01/28/2022 documented in this encounter Results * SCAN - RADIOLOGY/IMAGING (01/28/2022) Anatomical Region Laterality Modality Other us Provider Scanning Final Result documented in this encounter Visit Diagnoses Not on filedocumented in this encounter Additional Health Concerns Infection Onset Date Last Indicated Resolved Time COVID: Suspected 12/04/2023 12/04/2023 12/04/2023 7:31 PM CDT documented as of this encounter Care Teams Brickmason Apprentice Relationship Specialty Start Date End Date Radha Brock MD [address] [place] [address] PCP - General 10/03/16 Yasmany Esquivel MD [address] [place] [address] Referring Physician Nephrology 11/03/21 [place] [address] [address] Surgeon Orthopedic Surgery 01/12/23 documented as of this encounter
--- OUTSIDE RECORDS SUMMARY | 2025-04-03 12:28 | XMS_ITS | Encounter Summary ---
Author Organization [facility] Address [address] [place] [address] Care Team Providers Care Mortgage Loan Funder Name Role Phone Radha Brock MD Primary Care Provider [phone] Yasmany Esquivel MD Unavailable [phone] Mauricio Fairchild MD, Julian Hernandez Unavailable [phone] Encounter Details Date Type Department Care Team (Late st Contact Info) Description 12/22/2021 Orders Only [facility] Health Information Management [address] [place] [address] Scanning, Provider Social History Tobacco Use [...] often do you attend chur ch or jain services? More than 4 times per year 10/22/2021 Do you belong to any clubs o r organizations such as spiritism groups, unions, fraternal or athletic groups, or [...] and heating? Not hard at all 10/22/2021 [facility] [place] of Occupat ional Health - Occupational Stress [...] slept in a fpc (including now)? No 10/22/2021 Education Answer Date Recorded What is the highest level of school you have completed or the highest degree you have received? 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 Not on file Not on warren e documented as of this encounter Plan of Treatment Not on file documented as of this encounter Procedures Procedure Name Priority Date/Time Associated Diagnosis Comments CARDIOLOGY DOCUMENT SCAN 12/22/2021 documented in this encounter Results * Cardiology Document Scan (12/22/2021) Anatomical Region Laterality Modality Other us Provider Scanning CV CARDIAC SERVICES PROCEDURES Final Result documented in this encounter Visit Diagnoses Not on filedocumented in this encounter Additional Health Concerns Infection Onset Date Last Indicated Resolved Time COVID: Suspected 12/04/2023 12/04/2023 12/04/2023 7:31 PM CDT documented as of this encounter Care Teams Mortgage Loan Funder Relationship Specialty Start Date End Date Radha Brock MD [address] [place] [address] PCP - General 10/03/16 Yasmany Esquivel MD [address] [place] [address] Referring Physician Nephrology 11/03/21 [place] [id number] [address] Surgeon Orthopedic Surgery 01/12/23 documented as of this encounter
--- OUTSIDE RECORDS SUMMARY | 2025-04-03 12:28 | XMS_ITS | Patient Health Record ---
Author Organization [facility] Address [address] [place] [address] Care Team Providers Care Vigoureux Printer Name Role Phone Radha Brock Primary Care Provider UnavailDaren Sims Unavailable [phone] ALLERGIES Allergen (clinical drug ingredient) Drug/Non Drug [...] Specialty Physical The rapy Referral Priority Routine MEDICATIONS Medication SIG (Take, Route, Frequency, Duration) Notes Start Date End Date Status Isosorb Dinitrate-hydrALAZINE Active Magnesium Not-Taking Pantoprazole Sodium Active Glimepiride Not-Taki ng Plavix Active Omeprazole Not-Takin g hydrALAZINE HCl Not- Taking oxyCODONE-Acetaminophen 5-325 MG 1 tablet as needed Orally every 6 hrs for 7 days 05/28/2021 Not-Taking Allopurinol Active Furosemide Active Repaglinide Active Vitamin D Not-Taking Terazosin HCl Not-Ta nadeem Calcium Active Florajen3 Not-Taking Lisinopril Active Carvedilol Active Dialyvite Active Atorvastatin Calcium Active Nabumetone Not-Takin g Nitroglycerin Active amLODIPine Besylate Active Vitamin D3 Active Aspirin Not-Taking SOCIAL HISTORY Tobacco Use: Social History Observation Description Date Details (start date - stop date) Never Smoker NA - NA Sex Assigned At : Social History Observation Description Sex Assigned At Unknown Tobacco Use/Smoking Question Answer Notes Are you a nonsmoker PROBLEMS Problem Type ICD Code Onset Dates Problem Status W/U Status Risk SNOMED Code Notes Problem 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 Localized, prim rachele osteoarthritis of the wrist (143798302) Problem Arthritis of right wrist (M19.031) Active confirmed [id number] Problem Cervical radiculopathy (M54.12) Active confirmed Cervical radiculopathy (05870030) Problem Neck pain (M54.2) Active confirmed Neck pain (57391368) VITAL SIGNS Height 59 in 03/21/2025 Weight 133 lbs 03/21/2025 BMI 26.86 kg/m2 03/21/2025 Encounters Encounter Location Date Provider Diagnosis [facility] [address] [address] 03/21/2025 Daren Paz [facility] [address] [address] 03/21/2025 Daren Paz Neck pain M54.2 ASSESSMENTS Encounter Date Diagnosis Assessment Notes Treatment Notes Treatment Clinical Notes 03/21/2025 Neck pain (ICD-10 - M54.2) PLAN OF TREATMENT No Information Insurance Providers Payer Name Payer Address Payer Phone Subscriber Number Group Number Insured Name Patient Relationship to Insured Coverage Start Date Coverage End Date Medicare [place] [address] [address] [place] [phone] [id number] Leidy Voss Self - patient is the insured 5 [place] [employer] Secondary [address] [place] [address] [id number] Leidy Voss Self - patient is the insured MEDICATIONS ADMINISTERED Medication Instructions Date of Administration Dosage Notes Celestone 1mg-[id number] 05/07/2021 1 units MEDICAL (GENERAL) HISTORY Medical History History ICD Code Hypertension Heart Disease IBS Diabetes Kidney Disease Gout Sleep Apnea Diabetes Surgical History Surgery Date(Month/Year) Leg Fracture Right Hand Right Knee Surgery LASIX Right Thumb Fusion Cardiac Cath and Stents Right Ankle Replacement Right Shoulder Surgery Coccygectomy Carpal Tunnel Release Tonsillectomy Quadruple Bypass Cholecystectomy Hysterectomy Hospitalization History Reason Date(Month/Year) As per above.
--- OUTSIDE RECORDS SUMMARY | 2025-04-03 12:28 | XMS_ITS | Clinical Summary ---
Author Organization [facility] [address] [place] [address] Address [address] [place] [address] Care Team Providers Care Farm Helper Name Role Phone Radha Brock MD Primary Care Provider [phone] Allergies Active Allergy Reactions Criticality Noted Date [...] on file Legal Sex Female 3:02 AM LEASING AGENT Gender Identity Not on file Sexual Orientation [...] 2025 Insurance MEDICARE PART A AND B [facility] SUPP Care Teams Farm Helper Relationship Specialty Start Date End Date Radha Brock MD [address] [place] [id number] PCP - General Family Practice 03/08/20
--- OUTSIDE RECORDS SUMMARY | 2025-04-03 12:28 | XMS_ITS | Encounter Summary ---
Author Organization [facility] Healthcare Address [address] [place] [address] Care Team Providers Care Wheelchair Rental Clerk Name Role Phone Radha Brock MD Primary Care Provider [phone] Yasmany Esquivel MD Unavailable [phone] Mauricio Fairchild MD, Julian Hernandez Unavailable [phone] Encounter Details Date Type Department Care Team (Late st Contact Info) Description 02/14/2022 Orders Only [facility] Health Information Management [address] [place] [id number] Scanning, Provider Social History Tobacco Use [...] often do you attend chur ch or samaritan services? More than 4 times per year 10/22/2021 Do you belong to any clubs o r organizations such as evangelical groups, unions, fraternal or athletic groups, or [...] and heating? Not hard at all 10/22/2021 [facility] [place] of Occupat ional Health - Occupational Stress [...] place to sleep or slept in a [place] facility (including now)? No 10/22/2021 Education Answer Date Recorded What is the highest level of school you have completed or the highest degree you have received? 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 Not on file Not on warren e documented as of this encounter Plan of Treatment Not on file documented as of this encounter Procedures Procedure Name Priority Date/Time Associated Diagnosis Comments SCAN - RADIOLOGY/IMAGING 02/14/2022 9:29 PM CDT documented in this encounter Results * SCAN - RADIOLOGY/IMAGING (02/14/2022 9:29 PM CDT) Anatomical Region Laterality Modality Other us Provider Scanning Final Result documented in this encounter Visit Diagnoses Not on filedocumented in this encounter Additional Health Concerns Infection Onset Date Last Indicated Resolved Time COVID: Suspected 12/04/2023 12/04/2023 12/04/2023 7:31 PM CDT documented as of this encounter Care Teams Wheelchair Rental Clerk Relationship Specialty Start Date End Date Radha Brock MD [address] [place] [address] PCP - General 10/03/16 Yasmany Esquivel MD [address] [place] [address] Referring Physician Nephrology 11/03/21 [place] [id number] [address] Surgeon Orthopedic Surgery 01/12/23 documented as of this encounter
--- OUTSIDE RECORDS SUMMARY | 2025-04-03 12:28 | XMS_ITS | Encounter Summary ---
Author Organization [facility] Healthcare Address [address] [place] [address] Care Team Providers Care Pedal Assembler Name Role Phone Radha Brock MD Primary Care Provider [phone] Yasmany Esquivel MD Unavailable [phone] Mauricio Fairchild MD, Julian Hernandez Unavailable [phone] Encounter Details Date Type Department Care Team (Late st Contact Info) Description 12/23/2021 Orders Only [facility] Health Information Management [address] [place] [address] Scanning, Provider Social History Tobacco Use [...] often do you attend chur ch or alevism services? More than 4 times per year 10/22/2021 Do you belong to any clubs o r organizations such as cheondoism groups, unions, fraternal or athletic groups, or [...] and heating? Not hard at all 10/22/2021 [facility] [place] of Occupat ional Health - Occupational Stress [...] place to sleep or slept in a nursing home (including now)? No 10/22/2021 Education Answer Date Recorded What is the highest level of school you have completed or the highest degree you have received? 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 Not on file Not on warren e documented as of this encounter Plan of Treatment Not on file documented as of this encounter Procedures Procedure Name Priority Date/Time Associated Diagnosis Comments SCAN - RADIOLOGY/IMAGING 12/23/2021 documented in this encounter Results * SCAN - RADIOLOGY/IMAGING (12/23/2021) Anatomical Region Laterality Modality Other us Provider Scanning Final Result documented in this encounter Visit Diagnoses Not on filedocumented in this encounter Additional Health Concerns Infection Onset Date Last Indicated Resolved Time COVID: Suspected 12/04/2023 12/04/2023 12/04/2023 7:31 PM CDT documented as of this encounter Care Teams Pedal Assembler Relationship Specialty Start Date End Date Radha Brock MD [address] [place] [address] PCP - General 10/03/16 Yasmany Esquivel MD [address] [place] [address] Referring Physician Nephrology 11/03/21 [place] [id number] [address] Surgeon Orthopedic Surgery 01/12/23 documented as of this encounter
--- OUTSIDE RECORDS SUMMARY | 2025-04-03 12:28 | XMS_ITS | Encounter Summary ---
Author Organization [facility] Address [address] [place] [address] Care Team Providers Care Piccolo Mechanic Name Role Phone Radha Brock MD Primary Care Provider [phone] Radha Brock MD Primary Care Provider [phone] Encounter Details Date Type Department Care Team (Late Contact Info) Description 12/29/2017 Abstract [facility] [address] [place] [address] , Generic ConversionMD Social History Tobacco Use Types Packs/Day Years Used Date Smoking Tobacco: Never Comments Unknown Sex and Gender Information Value Date Recorded Sex Assigned at Female 07/27/2024 3:06 PM CREW SCHEDULER Legal Sex Female 9:21 PM CDT Gender Identity Not on file Sexual Orientation Not on file documented as of this encounter Plan of Treatment Upcoming Encounters Date Type Department Care Team (Late Contact Info) Description 06/08/2025 8:30 AM CREW SCHEDULER Appointment [facility] ETHICS OFFICER Mammography [address] [place] [address] Radha Brock MD [address] [place] [address] documented as of this encounter Visit Diagnoses Not on filedocumented in this encounter Additional Health Concerns Infection Onset Date Last Indicated Resolved Time COVID-19 Rule Out 02/18/2021 02/18/2021 02/18/2021 4:07 PM CDT COVID-19 Rule Out 06/05/2021 06/05/2021 06/06/2021 8:02 AM CREW SCHEDULER COVID-19 Rule Out 08/31/2021 08/31/2021 08/31/2021 1:35 AM CREW SCHEDULER COVID-19 Rule Out 03/06/2022 03/06/2022 03/06/2022 9:42 PM CDT COVID-19 Rule Out 04/16/2022 04/16/2022 04/16/2022 5:15 AM CDT COVID-19 Rule Out 04/16/2022 04/16/2022 04/16/2022 10:56 PM CDT ESBL - Extended Spectrum Beta-lactamase 02/03/2023 02/03/2023 documented as of this encounter Care Teams Piccolo Mechanic Relationship Specialty Start Date End Date Radha Brock MD [address] [place] [address] PCP - General FAMILY PRACTICE 12/31/18 09/29/22 Radha Brock MD [address] [place] [address] PCP - General FAMILY PRACTICE 09/30/22 documented as of this encounter
--- OUTSIDE RECORDS SUMMARY | 2025-04-03 12:28 | XMS_ITS | Encounter Summary ---
Author Organization [facility] Healthcare Address [address] [place] [address] Care Team Providers Care Bush Regenerator Name Role Phone Radha Brock MD Primary Care Provider [phone] Yasmany Esquivel MD Unavailable [phone] Mauricio Fairchild MD, Julian Hernandez Unavailable [phone] Encounter Details Date Type Department Care Team (Late st Contact Info) Description 07/16/2024 Orders Only [facility] Health Information Management [address] [place] [id number] Scanning, Provider Social History Tobacco Use Types Packs/Day Years Used Date Smoking Tobacco: Never Smokeless Tobacco: Never Comments:exposed to heavy sm oker - 25 years Alcohol Use Standard Drinks/Week Comments Yes 0 (1 standard drink = 0.6 oz pur e alcohol) [facility] Utilities Answer Date Recorded In the past 12 months has [employer], gas, oil, or water [employer] threatened to shut off services in your [...] How often do you attend chur or christianity services? More than 4 times per year 03/09/2024 Do you belong to any clubs o r organizations such as episcopal groups, unions, fraternal or athletic groups, or [...] and heating? Not hard at all 03/09/2024 [facility] - Occupational Stress Questionnaire Answer Date Recorded [...] place to sleep or slept in a half-way (including now)? No 01/07/2023 Housing Stability Vital Sign Answer Seth e Recorded In the last 12 months, was t here a time when you were not able to pay the mortgage or rent on time? No 03/09/2024 In the past 12 months, how m any times have you moved where you were living? 1 03/09/2024 At any time in the past 12 m [facility], were you homeless or living in a half-way (including now)? 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 Not on file Not on warren e documented as of this encounter Plan of Treatment Not on file documented as of this encounter Procedures Procedure Name Priority Date/Time Associated Diagnosis Comments SCAN - RADIOLOGY/IMAGING 07/16/2024 documented in this encounter Results * SCAN - RADIOLOGY/IMAGING (07/16/2024) Anatomical Region Laterality Modality Other us Provider Scanning Final Result documented in this encounter Visit Diagnoses Not on filedocumented in this encounter Care Teams Bush Regenerator Relationship Specialty Start Date End Date Radha Brock MD [address] [place], [place] [id number] PCP - General 10/03/16 Yasmany Esquivel MD [address] [place] [address] Referring Physician Nephrology 11/03/21 [place] [id number] [address] Surgeon Orthopedic Surgery 01/12/23 documented as of this encounter
--- OUTSIDE RECORDS SUMMARY | 2025-04-03 12:28 | XMS_ITS ---
Author Organization [facility] ([facility]) Address [address] [place] [id number] Care Team Providers Care Recordak Operator Name Role Phone Unavailable Unavailable Unavailable Allergies, Adverse Reactions, Alerts Allergy Name Allergy Type Status Severity Reaction(s) Onset Date Inactive Date Treating Clinician Comments Cipro Allergy Active Unknown 02-02 13:35: 21 HYDROcodone Allergy Active Unknown 2021-07 06:00: 00 traMADol Allergy Active Unknown 2021-07 06:00: 00 carBAMazepine Allergy Active Unknown 2021-07 06:00: 00 Triamterene Allergy Active Unknown 2021-07 06:00: 00 metroNIDAZOLE Allergy Active Unknown 2021-07 06:00: 00 Penicillins Allergy Active Unknown 2021-07 06:00: 00 Sulfa Antibiotics Allergy Active Unknown 2021-07 06:00: 00 Terbinafine Allergy Active Unknown 2021-07 06:00: 00 Labetalol Allergy Active Unknown 2021-07 06:00: 00 Gabapentin Allergy Active Unknown 2021-07 06:00: 00 Medications Ordered Medication Name Filled Medication Name Start Date Stop Date Current Medication? Ordering Clinician Indication Dosage Frequency Signature (SIG) Comments Components Mircera 03-13 15:23: 57 Yes [id number] Number of Repeats Allowed: Frequency: YARED dosing, every three to four weeks Mircera 01-11 17:24: 19 Yes [id number] Number of Repeats Allowed: Frequency: YARED dosing, every three to four weeks hydrALAZINE HCl 11-16 14:31: 05 Yes Number of Repeats Allowed: Frequency: Two times a day Mircera 10-12 15:37: 42 Yes [id number] Number of Repeats Allowed: Frequency: YARED dosing, every three to four weeks Potassium Chloride 08-09 17:27: 42 Yes Number of Repeats Allowed: Frequency: One time a day Nitrolingua l 08-09 17:25: 05 Yes Number of Repeats Allowed: Frequency: As needed Isosorbide Mononitrate 08-09 17:24: 15 Yes Number of Repeats Allowed: Frequency: Two times a day Glimepiride 08-09 17:23: 50 Yes Number of Repeats Allowed: Frequency: Two times a day Aspirin 81 08-09 17:23: 21 Yes Number of Repeats Allowed: Frequency: One time a day Allopurinol 08-09 17:23: 04 Yes Number of Repeats Allowed: Frequency: One time a day Pantoprazol e Sodium 08-09 17:22: 02 Yes Number of Repeats Allowed: Frequency: One time a day MAGnesium-O xide 08-09 17:21: 33 Yes Number of Repeats Allowed: Frequency: Two times a day Clopidogrel Bisulfate 08-09 17:21: 10 Yes Number of Repeats Allowed: Frequency: One time a day Carvedilol 08-09 17:20: 46 Yes Number of Repeats Allowed: Frequency: Two times a day Atorvastati n Calcium 08-09 17:20: 20 Yes Number of Repeats Allowed: Frequency: Once a day, at bedtime Problems This patient has no known problems. Procedures Procedure Date / Time Performed Performing Clinician Verenice ce Details PD Catheter 2022-12-02 05:00:00 Access Surgeon JARRELL LIMA D.O. ( [id number]),[place], [place] Access Site Upper Quadrant (Righ t) Access Use Start Date 2022-12-22 12:02:4 9 Central Venous Catheter (CVC)2022-05-19 06:00:00 Access Site Chest (Right) Access Use Start Date 2022-06-16 06:00:0 0 Access Use End Date 2023-04-16 05:00:00 DIALYSIS TREATMENT INFORMATION Conventional Hemodialysis Date Type Treatment Start Date Treatment End Date Pre-Treatment Vitals Post-Treatment Vitals Weight Gain BFR DFR Actual UF Dialysis Access April 02, 2025 [facility] April 01, 2025 [facility] March 31, 2025 [facility] March 30, 2025 [facility] March 29, 2025 [facility] March 28, 2025 [facility] March 27, 2025 [facility] March 26, 2025 [facility] March 25, 2025 [facility] March 24, 2025 [facility] March 23, 2025 [facility] March 23, 2025 [facility] March 22, 2025 [facility] March 21, 2025 [facility] March 20, 2025 [facility] March 19, 2025 [facility] March 18, 2025 [facility] March 17, 2025 [facility] March 16, 2025 [facility] March 15, 2025 [facility] March 14, 2025 [facility] March 13, 2025 [facility] March 12, 2025 [facility] March 11, 2025 [facility] March 10, 2025 [facility] BP Sitting (Pre-Dialysis) 110/58 mmH g Sitting Heart Rate Pre-Dialysis 76 BPM Temperature Pre-Dialysis 97.9 degF Weight Pre-Dialysis 61.3 kg March 10, 2025 [facility] March 09, 2025 [facility] March 08, 2025 [facility] March 07, 2025 [facility] March 06, 2025 [facility] March 05, 2025 [facility] March 04, 2025 [facility] March 03, 2025 [facility] March 02, 2025 [facility] BP Sitting (Pre-Dialysis) 140/54 mmHg BP Standing (Pre-Dialysis) 150/60 mmHg Sitting Heart Rate Pre-Dialysis 74 BPM Standing Heart Rate Pre-Dialysis 74 BPM Temperature Pre-Dialysis 98.6 degF Weight Pre-Dialysis 61.3 kg March 02, 2025 [facility] March 01, 2025 [facility] February 28, 2025 [facility] February 27, 2025 [facility] February 26, 2025 [facility] February 25, 2025 [facility] February 24, 2025 [facility] February 23, 2025 [facility] February 22, 2025 [facility] February 21, 2025 [facility] February 20, 2025 [facility] February 19, 2025 [facility] February 18, 2025 [facility] February 17, 2025 [facility] February 16, 2025 [facility] February 15, 2025 [facility] February 14, 2025 [facility] February 13, 2025 [facility] February 12, 2025 [facility] February 11, 2025 [facility] February 10, 2025 [facility] February 09, 2025 [facility] February 08, 2025 [facility] BP Sitting (Pre-Dialysis) 156/60 mmHg BP Standing (Pre-Dialysis) 135/89 mmHg Sitting Heart Rate Pre-Dialysis 66 BPM Standing Heart Rate Pre-Dialysis 69 BPM Temperature Pre-Dialysis 98.6 degF Weight Pre-Dialysis 60 kg February 08, 2025 [facility] February 07, 2025 [facility] February 06, 2025 [facility] February 05, 2025 [facility] February 04, 2025 [facility] February 03, 2025 [facility] February 02, 2025 [facility] February 01, 2025 [facility] January 31, 2025 [facility] January 30, 2025 [facility] January 29, 2025 [facility] January 28, 2025 [facility] January 27, 2025 [facility] January 26, 2025 [facility] January 25, 2025 [facility] January 24, 2025 [facility] January 23, 2025 [facility] January 22, 2025 [facility] January 21, 2025 [facility] January 20, 2025 [facility] January 19, 2025 [facility]CP BP Sitting (Pre-Dialysis) 108/67 mmHg Sitting Heart Rate Pre-Dialysis 69 BPM Temperature Pre-Dialysis 98.4 degF Weight Pre-Dialysis 59.5 kg January 19, 2025 [facility] January 18, 2025 [facility] January 17, 2025 [facility] January 16, 2025 [facility] January 15, 2025 [facility] January 14, 2025 [facility] January 13, 2025 [facility] January 12, 2025 [facility] January 11, 2025 [facility] January 10, 2025 [facility] January 09, 2025 [facility]CP BP Sitting (Pre-Dialysis) 147/63 mmHg BP Standing (Pre-Dialysis) 124/71 mmHg Sitting Heart Rate Pre-Dialysis 65 BPM Standing Heart Rate Pre-Dialysis 122 BPM Temperature Pre-Dialysis 98 degF Weight Pre-Dialysis 59 kg January 09, 2025 [facility] January 08, 2025 [facility] January 07, 2025 [facility] January 06, 2025 [facility] January 05, 2025 [facility] January 04, 2025 [facility] January 03, 2025 [facility] January 02, 2025 [facility] January 01, 2025 [facility] December 31, 2024 [facility] December 30, 2024 [facility] December 29, 2024 [facility] December 28, 2024 [facility] December 27, 2024 [facility] December 26, 2024 [facility] December 25, 2024 [facility] December 24, 2024 [facility] December 23, 2024 [facility] December 22, 2024 [facility] December 21, 2024 [facility] BP Sitting (Pre-Dialysis) 143/56 mmHg BP Standing (Pre-Dialysis) 125/58 mmHg Sitting Heart Rate Pre-Dialysis 75 BPM Standing Heart Rate Pre-Dialysis 74 BPM Temperature Pre-Dialysis 98.2 degF Weight Pre-Dialysis 59.2 kg December 21, 2024 [facility] December 20, 2024 [facility] December 19, 2024 [facility] December 18, 2024 [facility] December 17, 2024 [facility] December 16, 2024 [facility] December 15, 2024 [facility] December 14, 2024 [facility] December 13, 2024 [facility] December 12, 2024 [facility] December 11, 2024 [facility] December 10, 2024 [facility] December 09, 2024 [facility] December 08, 2024 [facility] December 07, 2024 [facility] BP Sitting (Pre-Dialysis) 120/63 mmHg BP Standing (Pre-Dialysis) 117/55 mmHg Sitting Heart Rate Pre-Dialysis 64 BPM Standing Heart Rate Pre-Dialysis 68 BPM Temperature Pre-Dialysis 97.4 degF Weight Pre-Dialysis 59.2 kg December 07, 2024 [facility] December 06, 2024 [facility] December 05, 2024 [facility] December 04[facility] 2024 [facility] December 03, 2024 [facility] December 02[facility] 2024 [facility] December 01, 2024 [facility] November 30, 2024 [facility] November 29[facility] 2024 [facility] November 28, 2024 [facility] November 27, 2024 [facility] November 26, 2024 [facility] November 25, 2024 [facility] November 24, 2024 [facility] BP Sitting (Pre-Dialysis) 127/46 mmHg BP Standing (Pre-Dialysis) 114/46 mmHg Sitting Heart Rate Pre-Dialysis 76 BPM Standing Heart Rate Pre-Dialysis 76 BPM Temperature Pre-Dialysis 97.6 degF Weight Pre-Dialysis 60 kg November 24, 2024 [facility] November 23, 2024 [facility] November 22, 2024 [facility] November 21[facility] 2024 [facility] November 20[facility] 2024 [facility] November 19, 2024 [facility] November 18, 2024 [facility] November 17, 2024 [facility] November 16, 2024 [facility] November 15, 2024 [facility] November 14, 2024 [facility] November 13, 2024 [facility] November 12, 2024 [facility] November 11, 2024 [facility] BP Sitting (Pre-Dialysis) 124/59 mmHg BP Standing (Pre-Dialysis) 111/54 mmHg Sitting Heart Rate Pre-Dialysis 75 BPM Standing Heart Rate Pre-Dialysis 77 BPM Temperature Pre-Dialysis 97.6 degF Weight Pre-Dialysis 57.2 kg November 11, 2024 [facility] November 10, 2024 [facility] November 09, 2024 [facility] November 08, 2024 [facility] November 07, 2024 [facility] November 06, 2024 [facility] November 05, 2024 [facility] November 04, 2024 [facility] November 03, 2024 [facility] November 02, 2024 [facility] November 01, 2024 [facility] October 31, 2024 [facility] October 30, 2024 [facility] October 29, 2024 [facility] October 28, 2024 [facility] October 27, 2024 [facility] October 26, 2024 [facility] October 25, 2024 [facility] October 24, 2024 [facility] October 23, 2024 [facility] October 22, 2024 [facility] October 21, 2024 [facility] October 20, 2024 [facility] October 20, 2024 [facility] October 19, 2024 [facility] BP Sitting (Pre-Dialysis) 137/64 mmHg Sitting Heart Rate Pre-Dialysis 76 BPM Temperature Pre-Dialysis 98 degF Weight Pre-Dialysis 58 kg October 19, 2024 [facility] October 18, 2024 [facility] October 17, 2024 [facility] October 16, 2024 [facility] October 15, 2024 [facility] October 14, 2024 [facility] October 13, 2024 [facility] October 12, 2024 [facility] October 11, 2024 [facility] October 10, 2024 [facility] BP Sitting (Pre-Dialysis) 128/50 mmHg BP Standing (Pre-Dialysis) 112/54 mmHg Sitting Heart Rate Pre-Dialysis 71 BPM Standing Heart Rate Pre-Dialysis 71 BPM Temperature Pre-Dialysis 97.7 degF Weight Pre-Dialysis 53.2 kg October 10, 2024 [facility] October 09, 2024 [facility] October 08, 2024 [facility] October 07, 2024 [facility] October 06, 2024 [facility] October 05, 2024 [facility] October 04, 2024 [facility] October 03, 2024 [facility] October 02, 2024 [facility] October 01, 2024 [facility] September 30, 2024 [facility] September 29, 2024 [facility] September 28, 2024 [facility] September 27, 2024 [facility] September 26, 2024 [facility] September 25, 2024 [facility] September 24, 2024 [facility] September 23, 2024 [facility] September 22, 2024 [facility] BP Sitting (Pre-Dialysis) 142/42 mmHg BP Standing (Pre-Dialysis) 136/42 mmHg Sitting Heart Rate Pre-Dialysis 71 BPM Standing Heart Rate Pre-Dialysis 72 BPM Temperature Pre-Dialysis 97.9 degF Weight Pre-Dialysis 60 kg September 22, 2024 [facility] September 21, 2024 [facility] September 20, 2024 [facility] September 19, 2024 [facility] September 18, 2024 [facility] September 17, 2024 [facility] September 16, 2024 [facility] September 15, 2024 [facility] September 14, 2024 [facility] September 13, 2024 [facility] September 12, 2024 [facility] BP Sitting (Pre-Dialysis) 138/62 mmHg BP Standing (Pre-Dialysis) 139/55 mmHg Sitting Heart Rate Pre-Dialysis 78 BPM Standing Heart Rate Pre-Dialysis 79 BPM Temperature Pre-Dialysis 98 degF Weight Pre-Dialysis 61.4 kg September 12, 2024 [facility] September 11, 2024 [facility] September 10, 2024 [facility] September 09, 2024 [facility] September 08, 2024 [facility] September 07, 2024 [facility] September 06, 2024 [facility] September 05, 2024 [facility] September 04, 2024 [facility] September 03, 2024 [facility] September 02, 2024 [facility] September 01, 2024 [facility] August 31, 2024 [facility] August 30, 2024 [facility] August 29, 2024 [facility] BP Sitting (Pre-Dialysis) 114/66 mmHg Sitting Heart Rate Pre-Dialysis 71 BPM Temperature Pre-Dialysis 98 degF Weight Pre-Dialysis 60.8 kg August 29, 2024 [facility] August 28, 2024 [facility] August 27, 2024 [facility] August 26, 2024 [facility] August 25, 2024 [facility] August 24, 2024 [facility] August 23, 2024 [facility] BP Sitting (Pre-Dialysis) 150/60 mmHg BP Standing (Pre-Dialysis) 115/51 mmHg Sitting Heart Rate Pre-Dialysis 71 BPM Standing Heart Rate Pre-Dialysis 72 BPM Temperature Pre-Dialysis 98 degF Weight Pre-Dialysis 61.3 kg August 23, 2024 [facility] August 22, 2024 [facility] August 21, 2024 [facility] August 20, 2024 [facility] August 19, 2024 [facility] August 18, 2024 [facility] August 17, 2024 [facility] August 16, 2024 [facility] August 15, 2024 [facility] August 14, 2024 [facility] August 13, 2024 [facility] August 12, 2024 [facility] August 11, 2024 [facility] August 10, 2024 [facility] August 09, 2024 [facility] BP Sitting (Pre-Dialysis) 147/83 mmHg Sitting Heart Rate Pre-Dialysis 66 BPM Temperature Pre-Dialysis 97.3 degF Weight Pre-Dialysis 58.2 kg August 09, 2024 [facility] August 08, 2024 [facility] August 07, 2024 [facility] August 06, 2024 [facility] August 05, 2024 [facility] August 04, 2024 [facility] August 03, 2024 [facility] August 02, 2024 [facility] August 01, 2024 [facility] July 31, 2024 [facility] July 30, 2024 [facility] July 29, 2024 [facility] July 28, 2024 [facility] July 27, 2024 [facility] BP Sitting (Pre-Dialysis) 143/55 mmHg BP Standing (Pre-Dialysis) 132/60 mmHg Sitting Heart Rate Pre-Dialysis 69 BPM Standing Heart Rate Pre-Dialysis 69 BPM Temperature Pre-Dialysis 98.3 degF Weight Pre-Dialysis 58.9 kg July 27, 2024 [facility] July 25, 2024 [facility] July 24, 2024 [facility] July 23, 2024 [facility] July 22, 2024 [facility] July 21, 2024 [facility] July 20, 2024 [facility] July 15, 2024 [facility] July 14, 2024 [facility] July 13, 2024 [facility] BP Sitting (Pre-Dialysis) 180/62 mmHg Sitting Heart Rate Pre-Dialysis 68 BPM Temperature Pre-Dialysis 97.9 degF Weight Pre-Dialysis 66.2 kg July 13, 2024 [facility] July 12, 2024 [facility] July 11, 2024 [facility] July 10, 2024 [facility] July 09, 2024 [facility] July 08, 2024 [facility] July 07, 2024 [facility] July 06, 2024 [facility] July 05, 2024 [facility] July 04, 2024 [facility] July 03, 2024 [facility] July 02, 2024 [facility] July 01, 2024 [facility] June 30, 2024 [facility] June 29, 2024 [facility] June 28, 2024 [facility] June 27, 2024 [facility] June 26, 2024 [facility] June 25, 2024 [facility] June 24, 2024 [facility] June 23, 2024 [facility] June 22, 2024 [facility] June 21, 2024 [facility] BP Sitting (Pre-Dialysis) 128/52 mmHg Sitting Heart Rate Pre-Dialysis 71 BPM Temperature Pre-Dialysis 97.3 degF Weight Pre-Dialysis 60.9 kg June 21, 2024 [facility] June 20, 2024 [facility] June 19, 2024 [facility] June 18, 2024 [facility] June 17, 2024 [facility] June 16, 2024 [facility] June 15, 2024 [facility] June 14, 2024 [facility] June 13, 2024 [facility] June 12, 2024 [facility] June 11, 2024 [facility] June 10, 2024 [facility] June 09, 2024 [facility] June 08, 2024 [facility] June 07, 2024 [facility] June 06, 2024 [facility]CP BP Sitting (Pre-Dialysis) 148/58 mmHg Sitting Heart Rate Pre-Dialysis 70 BPM Temperature Pre-Dialysis 97.2 degF Weight Pre-Dialysis 58.9 kg June 06, 2024 [facility] June 05, 2024 [facility] June 04, 2024 [facility] June 03, 2024 [facility] June 02, 2024 [facility] June 01, 2024 [facility] May 31, 2024 [facility] May 30, 2024 [facility] May 29, 2024 [facility] May 28, 2024 [facility] May 27, 2024 [facility] May 26, 2024 [facility] May 25, 2024 [facility] May 24, 2024 [facility] BP Sitting (Pre-Dialysis) 141/62 mmHg Sitting Heart Rate Pre-Dialysis 68 BPM Temperature Pre-Dialysis 97.8 degF Weight Pre-Dialysis 59.8 kg May 24, 2024 [facility] May 23, 2024 [facility] May 22, 2024 [facility] May 21, 2024 [facility] May 20, 2024 [facility] May 19, 2024 [facility] May 18, 2024 [facility] May 17, 2024 [facility] May 16, 2024 [facility] BP Sitting (Pre-Dialysis) 126/52 mmHg Sitting Heart Rate Pre-Dialysis 62 BPM Temperature Pre-Dialysis 96.8 degF Weight Pre-Dialysis 60.8 kg May 16, 2024 [facility] May 15, 2024 [facility] May 14, 2024 [facility] May 13, 2024 [facility] May 12, 2024 [facility] May 11, 2024 [facility] May 10, 2024 [facility] May 09, 2024 [facility] May 08, 2024 [facility] May 07, 2024 [facility] May 06, 2024 [facility] May 05, 2024 [facility] May 04, 2024 [facility] May 03, 2024 [facility] May 02, 2024 [facility] May 01, 2024 [facility] April 30, 2024 [facility] April 29, 2024 [facility] April 28, 2024 [facility] April 27, 2024 [facility] April 26, 2024 [facility] April 25, 2024 [facility] April 24, 2024 [facility] April 23, 2024 [facility] April 22, 2024 [facility] April 21, 2024 [facility] April 20, 2024 [facility] April 19, 2024 [facility] BP Sitting (Pre-Dialysis) 138/57 mmHg Sitting Heart Rate Pre-Dialysis 67 BPM Temperature Pre-Dialysis 97.5 degF Weight Pre-Dialysis 58.3 kg April 19, 2024 [facility] April 18, 2024 [facility] April 17, 2024 [facility] April 16, 2024 [facility] April 15, 2024 [facility] April 14, 2024 [facility] April 13, 2024 [facility] April 12, 2024 [facility] April 11, 2024 [facility] April 10, 2024 [facility] April 09, 2024 [facility] April 08, 2024 [facility] April 07, 2024 [facility] April 06, 2024 [facility] April 05, 2024 [facility] BP Sitting (Pre-Dialysis) 134/52 mmHg Sitting Heart Rate Pre-Dialysis 61 BPM Temperature Pre-Dialysis 97.5 degF Weight Pre-Dialysis 58.6 kg April 05, 2024 [facility] April 04, 2024 [facility] April 03, 2024 [facility] April 02, 2024 [facility] April 01, 2024 [facility] March 31, 2024 [facility] March 30, 2024 [facility] March 29, 2024 [facility] March 28, 2024 [facility] March 27, 2024 [facility] March 26, 2024 [facility] March 25, 2024 [facility] BP Sitting (Pre-Dialysis) 118/52 mmH g Sitting Heart Rate Pre-Dialysis 58 BPM Temperature Pre-Dialysis 97.3 degF Weight Pre-Dialysis 56.7 kg March 25, 2024 [facility] March 24, 2024 [facility] March 23, 2024 [facility] March 22, 2024 [facility] BP Sitting (Pre-Dialysis) 110/47 mmH g Sitting Heart Rate Pre-Dialysis 61 BPM Temperature Pre-Dialysis 97.1 degF Weight Pre-Dialysis 57.4 kg March 22, 2024 [facility] March 21, 2024 [facility] March 20, 2024 [facility] March 19, 2024 [facility] March 18, 2024 [facility] March 17, 2024 [facility] March 16, 2024 [facility] March 08, 2024 [facility] March 07, 2024 [facility] March 06, 2024 [facility] March 05, 2024 [facility] March 04, 2024 [facility] March 03, 2024 [facility] March 02, 2024 [facility] March 01, 2024 [facility] February 29, 2024 [facility] February 28, 2024 [facility] February 27, 2024 [facility] February 26, 2024 [facility] February 25, 2024 [facility] February 24, 2024 [facility] February 23, 2024 [facility] BP Sitting (Pre-Dialysis) 129/73 mmHg Sitting Heart Rate Pre-Dialysis 69 BPM Temperature Pre-Dialysis 97.5 degF Weight Pre-Dialysis 60.8 kg February 23, 2024 [facility] February 22, 2024 [facility] February 21, 2024 [facility] February 20, 2024 [facility] February 19, 2024 [facility] February 18, 2024 [facility] February 17, 2024 [facility] February 16, 2024 [facility] February 15, 2024 [facility] February 14, 2024 [facility] February 13, 2024 [facility] February 12, 2024 [facility] February 11, 2024 [facility] February 10, 2024 [facility] February 09, 2024 [facility] February 08, 2024 [facility] February 07, 2024 [facility] February 06, 2024 [facility] February 05, 2024 [facility] February 04, 2024 [facility] BP Sitting (Pre-Dialysis) 142/55 mmHg Sitting Heart Rate Pre-Dialysis 71 BPM Temperature Pre-Dialysis 97.9 degF Weight Pre-Dialysis 60.8 kg February 04, 2024 [facility] February 03, 2024 [facility] February 02, 2024 [facility] February 01, 2024 [facility] January 31, 2024 [facility] January 30, 2024 [facility] January 29, 2024 [facility] January 28, 2024 [facility] January 27, 2024 [facility] January 26, 2024 [facility] January 25, 2024 [facility] January 24, 2024 [facility] January 23, 2024 [facility] January 22, 2024 [facility] January 21, 2024 [facility] January 20, 2024 [facility] January 19, 2024 [facility] BP Sitting (Pre-Dialysis) 160/65 mmHg Sitting Heart Rate Pre-Dialysis 63 BPM Temperature Pre-Dialysis 97 degF Weight Pre-Dialysis 62 kg January 19, 2024 [facility] January 18, 2024 [facility] January 17, 2024 [facility] January 16, 2024 [facility] January 15, 2024 [facility] January 14, 2024 [facility] January 13, 2024 [facility] BP Sitting (Pre-Dialysis) 174/57 mmHg Sitting Heart Rate Pre-Dialysis 65 BPM Temperature Pre-Dialysis 97.7 degF Weight Pre-Dialysis 61.7 kg January 13, 2024 [facility] January 12, 2024 [facility] January 11, 2024 [facility] January 10, 2024 [facility] January 09, 2024 [facility] January 08, 2024 [facility] January 07, 2024 [facility] January 06, 2024 [facility] January 05, 2024 [facility] January 04, 2024 [facility] January 03, 2024 [facility] January 02, 2024 [facility] January 01, 2024 [facility] December 31, 2023 [facility] December 30, 2023 [facility] December 29, 2023 [facility] December 28, 2023 [facility] December 27, 2023 [facility] December 26, 2023 [facility] December 25, 2023 [facility] December 24, 2023 [facility] BP Sitting (Pre-Dialysis) 124/48 mmHg Sitting Heart Rate Pre-Dialysis 61 BPM Temperature Pre-Dialysis 97.7 degF Weight Pre-Dialysis 60.9 kg December 24, 2023 [facility] December 23, 2023 [facility] December 22, 2023 [facility] BP Sitting (Pre-Dialysis) 126/45 mmHg Sitting Heart Rate Pre-Dialysis 67 BPM Temperature Pre-Dialysis 97.7 degF Weight Pre-Dialysis 60.5 kg December 22, 2023 [facility] December 21, 2023 [facility] December 20, 2023 [facility] December 19, 2023 [facility] December 18, 2023 [facility] December 17, 2023 [facility] December 16, 2023 [facility] December 15, 2023 [facility] December 14, 2023 [facility] BP Sitting (Pre-Dialysis) 152/70 mmHg Sitting Heart Rate Pre-Dialysis 76 BPM Temperature Pre-Dialysis 97.7 degF Weight Pre-Dialysis 59.7 kg December 14, 2023 [facility] December 13, 2023 [facility] December 12, 2023 [facility] December 11, 2023 [facility] December 10, 2023 [facility] December 09, 2023 [facility] December 06, 2023 [facility] December 05, 2023 [facility] December 04, 2023 [facility] December 03, 2023 [facility] December 02, 2023 [facility] December 01, 2023 [facility] November 30, 2023 [facility] November 29, 2023 [facility] November 28, 2023 [facility] November 27, 2023 [facility] November 26, 2023 [facility] November 25, 2023 [facility] November 24, 2023 [facility] BP Sitting (Pre-Dialysis) 128/41 mmHg Sitting Heart Rate Pre-Dialysis 57 BPM Temperature Pre-Dialysis 97.5 degF Weight Pre-Dialysis 65.2 kg November 24, 2023 [facility] November 23, 2023 [facility] November 22, 2023 [facility] November 21, 2023 [facility] November 20, 2023 [facility] November 19, 2023 [facility] November 18, 2023 [facility] November 17, 2023 [facility] November 16, 2023 [facility] November 15, 2023 [facility] November 14, 2023 [facility] November 13, 2023 [facility] November 12, 2023 [facility] November 11, 2023 [facility] November 10, 2023 [facility] November 09, 2023 [facility] November 08, 2023 [facility] November 07, 2023 [facility] November 06, 2023 [facility] November 05, 2023 [facility] BP Sitting (Pre-Dialysis) 132/58 mmHg Sitting Heart Rate Pre-Dialysis 65 BPM Temperature Pre-Dialysis 97.5 degF Weight Pre-Dialysis 59.3 kg November 05, 2023 [facility] November 04, 2023 [facility] November 03, 2023 [facility] November 02, 2023 [facility] November 01, 2023 [facility] October 31, 2023 [facility] October 30, 2023 [facility] October 29, 2023 [facility] October 28, 2023 [facility] October 27, 2023 [facility] October 26, 2023 [facility] October 25, 2023 [facility] October 24, 2023 [facility] October 23, 2023 [facility] October 22, 2023 [facility] BP Sitting (Pre-Dialysis) 138/52 mmHg Sitting Heart Rate Pre-Dialysis 64 BPM Temperature Pre-Dialysis 97.3 degF Weight Pre-Dialysis 59.9 kg October 22, 2023 [facility] October 21, 2023 [facility] BP Sitting (Pre-Dialysis) 172/55 mmHg Sitting Heart Rate Pre-Dialysis 76 BPM Temperature Pre-Dialysis 98.1 degF Weight Pre-Dialysis 60 kg October 20, 2023 [facility] BP Sitting (Pre-Dialysis) 128/42 mmHg Sitting Heart Rate Pre-Dialysis 65 BPM Temperature Pre-Dialysis 97.5 degF Weight Pre-Dialysis 59.1 kg October 20, 2023 [facility] October 19, 2023 [facility] October 18, 2023 [facility] October 17, 2023 [facility] October 16, 2023 [facility] October 15, 2023 [facility] October 14, 2023 [facility] October 13, 2023 [facility] October 12, 2023 [facility] October 11, 2023 [facility] October 10, 2023 [facility] October 09, 2023 [facility] October 08, 2023 [facility] October 07, 2023 [facility] BP Sitting (Pre-Dialysis) 136/48 mmHg Sitting Heart Rate Pre-Dialysis 61 BPM Temperature Pre-Dialysis 97.5 degF Weight Pre-Dialysis 58.2 kg October 07, 2023 [facility] October 06, 2023 [facility] October 05, 2023 [facility] October 04, 2023 [facility] October 03, 2023 [facility] October 02, 2023 [facility] October 01, 2023 [facility] September 30, 2023 [facility] September 29, 2023 [facility] September 28, 2023 [facility] September 27, 2023 [facility] September 26, 2023 [facility] September 25, 2023 [facility] September 24, 2023 [facility] September 23, 2023 [facility] September 22, 2023 [facility] BP Sitting (Pre-Dialysis) 130/73 mmHg Sitting Heart Rate Pre-Dialysis 62 BPM Temperature Pre-Dialysis 97.3 degF Weight Pre-Dialysis 57.2 kg September 22, 2023 [facility] September 21, 2023 [facility] September 20, 2023 [facility] September 19, 2023 [facility] September 18, 2023 [facility] September 17, 2023 [facility] September 16, 2023 [facility] September 15, 2023 [facility] September 14, 2023 [facility] September 13, 2023 [facility] September 12, 2023 [facility] September 11, 2023 [facility] September 10, 2023 [facility] BP Sitting (Pre-Dialysis) 146/58 mmHg Sitting Heart Rate Pre-Dialysis 61 BPM Temperature Pre-Dialysis 97.2 degF Weight Pre-Dialysis 57.3 kg September 10, 2023 [facility] September 09, 2023 [facility] September 08, 2023 [facility] September 07, 2023 [facility] September 06, 2023 [facility] September 05, 2023 [facility] September 04, 2023 [facility] September 03, 2023 [facility] September 02, 2023 [facility] September 01, 2023 [facility] August 31, 2023 [facility] August 30, 2023 [facility] August 29, 2023 [facility] August 28, 2023 [facility] August 27, 2023 [facility] August 26, 2023 [facility] August 25, 2023 [facility] BP Sitting (Pre-Dialysis) 166/54 mmHg Sitting Heart Rate Pre-Dialysis 70 BPM Temperature Pre-Dialysis 96.8 degF Weight Pre-Dialysis 60.3 kg August 25, 2023 [facility] August 24, 2023 [facility] August 23, 2023 [facility] August 22, 2023 [facility] August 21, 2023 [facility] August 20, 2023 [facility] August 19, 2023 [facility] August 18, 2023 [facility] August 17, 2023 [facility] August 16, 2023 [facility] August 15, 2023 [facility] August 14, 2023 [facility] August 13, 2023 [facility] August 12, 2023 [facility] August 11, 2023 [facility] BP Sitting (Pre-Dialysis) 132/50 mmHg Sitting Heart Rate Pre-Dialysis 61 BPM Temperature Pre-Dialysis 97.2 degF Weight Pre-Dialysis 59.4 kg August 11, 2023 [facility] August 10, 2023 [facility] August 09, 2023 [facility] August 08, 2023 [facility] August 07, 2023 [facility] August 06, 2023 [facility] August 05, 2023 [facility] August 04, 2023 [facility] August 03, 2023 [facility] August 02, 2023 [facility] August 01, 2023 [facility] July 31, 2023 [facility] July 30, 2023 [facility] July 29, 2023 [facility] July 28, 2023 [facility] July 27, 2023 [facility] July 26, 2023 [facility] July 25, 2023 [facility] July 24, 2023 [facility] July 23, 2023 [facility] July 22, 2023 [facility] BP Sitting (Pre-Dialysis) 137/60 mmHg Sitting Heart Rate Pre-Dialysis 63 BPM Temperature Pre-Dialysis 96.6 degF Weight Pre-Dialysis 57.7 kg July 22, 2023 [facility] July 21, 2023 [facility] July 20, 2023 [facility] July 19, 2023 [facility] 2023 [facility] July 17, 2023 [facility] July 16, 2023 [facility] July 15, 2023 [facility] July 14, 2023 [facility] July 13, 2023 [facility] July 12, 2023 [facility] July 11, 2023 [facility] July 10, 2023 [facility] July 09, 2023 [facility] July 08, 2023 [facility] July 07, 2023 [facility] BP Sitting (Pre-Dialysis) 182/67 mmHg Sitting Heart Rate Pre-Dialysis 61 BPM Temperature Pre-Dialysis 97.3 degF Weight Pre-Dialysis 57.9 kg July 07, 2023 [facility] July 06, 2023 [facility] July 05, 2023 [facility] July 04, 2023 [facility] July 03, 2023 [facility] July 02, 2023 [facility] July 01, 2023 [facility] June 30, 2023 [facility] June 29, 2023 [facility] June 28, 2023 [facility] June 27, 2023 [facility] June 26, 2023 [facility] June 25, 2023 [facility] June 24, 2023 [facility] June 23, 2023 [facility] BP Sitting (Pre-Dialysis) 194/69 mmHg Sitting Heart Rate Pre-Dialysis 77 BPM Temperature Pre-Dialysis 97.9 degF Weight Pre-Dialysis 59.7 kg June 23, 2023 [facility] June 22, 2023 [facility] June 21, 2023 [facility] June 20, 2023 [facility] June 19, 2023 [facility] June 18, 2023 [facility] June 17, 2023 [facility] June 16, 2023 [facility] June 15, 2023 [facility] June 14, 2023 [facility] June 13, 2023 [facility] June 12, 2023 [facility] June 11, 2023 [facility] June 10, 2023 [facility] June 09, 2023 [facility] June 08, 2023 [facility] BP Sitting (Pre-Dialysis) 125/58 mmHg Sitting Heart Rate Pre-Dialysis 68 BPM Temperature Pre-Dialysis 97.7 degF Weight Pre-Dialysis 58.4 kg June 08, 2023 [facility] June 07, 2023 [facility] June 06, 2023 [facility] June 05, 2023 [facility] June 04, 2023 [facility] June 03, 2023 [facility] June 02, 2023 [facility] June 01, 2023 [facility] May 31, 2023 [facility] May 30, 2023 [facility] May 29, 2023 [facility] May 28, 2023 [facility] May 27, 2023 [facility] May 26, 2023 [facility] BP Sitting (Pre-Dialysis) 155/60 mmHg Sitting Heart Rate Pre-Dialysis 66 BPM Temperature Pre-Dialysis 97.7 degF Weight Pre-Dialysis 58.3 kg May 26, 2023 [facility] May 25, 2023 [facility] May 24, 2023 [facility] May 23, 2023 [facility] May 22, 2023 [facility] May 21, 2023 [facility] May 20, 2023 [facility] May 19, 2023 [facility] May 18, 2023 [facility] May 17, 2023 [facility] May 16, 2023 [facility] May 15, 2023 [facility] May 14, 2023 [facility] May 13, 2023 [facility] May 12, 2023 [facility] May 11, 2023 [facility] BP Sitting (Pre-Dialysis) 149/72 mmHg Sitting Heart Rate Pre-Dialysis 61 BPM Temperature Pre-Dialysis 97.7 degF Weight Pre-Dialysis 58 kg May 11, 2023 [facility] May 10, 2023 [facility] May 09, 2023 [facility] May 08, 2023 [facility] May 07, 2023 [facility] May 06, 2023 [facility] May 05, 2023 [facility] May 04, 2023 [facility] May 03, 2023 [facility] May 02, 2023 [facility] May 01, 2023 [facility] April 30, 2023 [facility] April 29, 2023 [facility] April 28, 2023 [facility] April 27, 2023 [facility] April 26, 2023 [facility] April 25, 2023 [facility] April 24, 2023 [facility] April 23, 2023 [facility] April 22, 2023 [facility] April 21, 2023 [facility] BP Sitting (Pre-Dialysis) 126/89 mmHg Sitting Heart Rate Pre-Dialysis 65 BPM Temperature Pre-Dialysis 97.8 degF Weight Pre-Dialysis 57.9 kg April 21, 2023 [facility] April 20, 2023 [facility] April 19, 2023 [facility] April 18, 2023 [facility] April 17, 2023 [facility] April 16, 2023 [facility] April 15, 2023 [facility] April 14, 2023 [facility] April 13, 2023 [facility] April 12, 2023 [facility] April 11, 2023 [facility] April 10, 2023 [facility] April 09, 2023 [facility] April 08, 2023 [facility] BP Sitting (Pre-Dialysis) 158/52 mmHg Sitting Heart Rate Pre-Dialysis 62 BPM Temperature Pre-Dialysis 97.5 degF Weight Pre-Dialysis 56.7 kg April 08, 2023 [facility] April 07, 2023 [facility] April 06, 2023 [facility] April 05, 2023 [facility] April 04, 2023 [facility] April 03, 2023 [facility] April 02, 2023 [facility] BP Sitting (Pre-Dialysis) 138/59 mmH g Sitting Heart Rate Pre-Dialysis 63 BPM Temperature Pre-Dialysis 97.3 degF Weight Pre-Dialysis 58.9 kg April 02, 2023 [facility] April 01, 2023 [facility] March 31, 2023 [facility] March 30, 2023 [facility] March 29, 2023 [facility] March 28, 2023 [facility] March 27, 2023 [facility] March 26, 2023 [facility] March 25, 2023 [facility] March 24, 2023 [facility] BP Sitting (Pre-Dialysis) 163/50 mmH g Sitting Heart Rate Pre-Dialysis 63 BPM Temperature Pre-Dialysis 98.1 degF Weight Pre-Dialysis 58.1 kg March 24, 2023 [facility] March 23, 2023 [facility] March 22, 2023 [facility] March 21, 2023 [facility] March 20, 2023 [facility] March 19, 2023 [facility] March 18, 2023 [facility] March 17, 2023 [facility] March 16, 2023 [facility] March 15, 2023 [facility] March 14, 2023 [facility] March 13, 2023 [facility] March 12, 2023 [facility] March 11, 2023 [facility] March 10, 2023 [facility] BP Sitting (Pre-Dialysis) 157/57 mmH g Sitting Heart Rate Pre-Dialysis 61 BPM Temperature Pre-Dialysis 97.1 degF Weight Pre-Dialysis 60.6 kg March 10, 2023 [facility] March 09, 2023 [facility] March 08, 2023 [facility] March 07, 2023 [facility] March 06, 2023 [facility] March 05, 2023 [facility] March 04, 2023 [facility] March 03, 2023 [facility] March 02, 2023 [facility] March 01, 2023 [facility] February 28, 2023 [facility] February 27, 2023 [facility] February 26, 2023 [facility] February 25, 2023 [facility] February 24, 2023 [facility] February 23, 2023 [facility] BP Sitting (Pre-Dialysis) 133/48 mmHg Sitting Heart Rate Pre-Dialysis 64 BPM Temperature Pre-Dialysis 98.2 degF Weight Pre-Dialysis 58.9 kg February 23, 2023 [facility] February 22, 2023 [facility] February 21, 2023 [facility] February 20, 2023 [facility] February 19, 2023 [facility] February 18, 2023 [facility] February 17, 2023 [facility] BP Sitting (Pre-Dialysis) 150/44 mmHg Sitting Heart Rate Pre-Dialysis 65 BPM Temperature Pre-Dialysis 97.9 degF Weight Pre-Dialysis 57.8 kg February 17, 2023 [facility] February 16, 2023 [facility] February 15, 2023 [facility] February 14, 2023 [facility] February 13, 2023 [facility] BP Sitting (Pre-Dialysis) 147/42 mmHg Sitting Heart Rate Pre-Dialysis 60 BPM Temperature Pre-Dialysis 97.4 degF Weight Pre-Dialysis 57.8 kg February 13, 2023 [facility] February 12, 2023 [facility] February 11, 2023 [facility] February 10, 2023 [facility] February 09, 2023 [facility] February 06, 2023 [facility] Training BP Sitting (Pre-Dialysis ) 131/47 mmHg BP Sitting (Post-Dialysi s) 144/50 mmHg Sitting Heart Rate Pre-Dialysis 58 BPM Sitting H eart Rate Post-Dialysis 56 BPM Temperature Pre-Dialysis 97.2 degF Temperature Post -Dialysis 97.7 degF Weight Pre-Dialysis 57.1 kg Weight Post-Dialysis 57.2 kg February 05, 2023 [facility] Training BP Sitting (Pre-Dialysis) 129/42 mmHg BP Sitting (Post-Dialysis) 142/56 mmHg Sitting Heart Rate Pre-Dialysis 59 BPM Sitting H eart Rate Post-Dialysis 58 BPM Temperature Pre-Dialysis 97.7 degF Temperature Post -Dialysis 97.6 degF Weight Pre-Dialysis 56.8 kg Weight Post-Dialysis 56.7 kg February 03, 2023 [facility] Hemod[facility] Treatment [id number]:07:38.000Z [id number]:53:37.000Z BP Sitting (Pre-Dialysis) 161/67 mmHg BP Sitting (Post-Dialysis) 171/67 mmHg Concurrent Access: falseCentral Venous Catheter (CVC) Chest (Right) ArterialPD Catheter Upper Quadrant (Right) Venous Sitting Heart Rate Pre-Dialysis 73 BPM Sitting H eart Rate Post-Dialysis 73 BPM Temperature Pre-Dialysis 97.2 degF Temperature Post -Dialysis 97.2 degF February 02, 2023 [facility] Training BP Sitting (Pre-Dialysis) 134/50 mmHg BP Sitting (Post-Dialysis) 134/57 mmHg Sitting Heart Rate Pre-Dialysis 57 BPM Sitting H eart Rate Post-Dialysis 58 BPM Temperature Pre-Dialysis 97.7 degF Temperature Post -Dialysis 97.7 degF Weight Pre-Dialysis 58.6 kg Weight Post-Dialysis 58.5 kg January 30, 2023 [facility] Training BP Sitting (Pre-Dialysis) 137/52 mmHg BP Sitting (Post-Dialysis) 132/52 mmHg Sitting Heart Rate Pre-Dialysis 57 BPM Sitting H eart Rate Post-Dialysis 56 BPM Temperature Pre-Dialysis 98.6 degF Temperature Post -Dialysis 97.7 degF Weight Pre-Dialysis 58.3 kg Weight Post-Dialysis 58.1 kg January 29, 2023 [facility] Training BP Sitting (Pre-Dialysis) 128/55 mmHg BP Sitting (Post-Dialysis) 112/48 mmHg Sitting Heart Rate Pre-Dialysis 57 BPM Sitting H eart Rate Post-Dialysis 56 BPM Temperature Pre-Dialysis 97.5 degF Temperature Post -Dialysis 97.2 degF Weight Pre-Dialysis 59 kg Weight Post-Dialysis 59.1 kg January 26, 2023 [facility] Training BP Sitting (Pre-Dialysis) 129/46 mmHg BP Sitting (Post-Dialysis) 129/51 mmHg Sitting Heart Rate Pre-Dialysis 55 BPM Sitting H eart Rate Post-Dialysis 58 BPM Temperature Pre-Dialysis 97.3 degF Temperature Post -Dialysis 97.5 degF Weight Pre-Dialysis 59.3 kg Weight Post-Dialysis 59.2 kg January 23, 2023 [facility] Training BP Sitting (Pre-Dialysis) 158/52 mmHg BP Sitting (Post-Dialysis) 144/46 mmHg Sitting Heart Rate Pre-Dialysis 51 BPM Sitting H eart Rate Post-Dialysis 55 BPM Temperature Pre-Dialysis 97.5 degF Temperature Post -Dialysis 97.3 degF Weight Pre-Dialysis 57.5 kg Weight Post-Dialysis 57.5 kg January 22, 2023 [facility] Training BP Sitting (Pre-Dialysis) 157/48 mmHg BP Sitting (Post-Dialysis) 137/53 mmHg Sitting Heart Rate Pre-Dialysis 59 BPM Sitting H eart Rate Post-Dialysis 53 BPM Temperature Pre-Dialysis 97.5 degF Temperature Post -Dialysis 97.7 degF Weight Pre-Dialysis 56.9 kg Weight Post-Dialysis 57 kg January 20, 2023 [facility] Treatment [id number]:42:37.000Z [id number]:55:37.000Z BP Sitting (Pre-Dialysis) 141/46 mmHg BP Sitting (Post-Dialysis) 136/57 mmHg Concurrent Access: falseCentral Venous Catheter (CVC) Chest (Right) ArterialPD Catheter Upper Quadrant (Right) Venous Sitting Heart Rate Pre-Dialysis 59 BPM Sitting H eart Rate Post-Dialysis 52 BPM Temperature Pre-Dialysis 97 degF Temperature Post -Dialysis 97 degF January 17, 2023 Backup Hemodialysis Treatment [id number]:45:00.000Z [id number]:07:18.000Z BP Sitting (Pre-Dialysis) 151/60 mmHg BP Sitting (Post-Dialysis) 162/55 mmHg Concurrent Access: falseCentral Venous Catheter (CVC) Chest (Right) ArterialPD Catheter Upper Quadrant (Right) Venous Sitting Heart Rate Pre-Dialysis 52 BPM Sitting H eart Rate Post-Dialysis 55 BPM Temperature Pre-Dialysis 97.5 degF Temperature Post -Dialysis 97.3 degF January 15, 2023 Backup Hemodialysis Treatment [id number]:52:36.000Z [id number]:09:36.000Z BP Sitting (Pre-Dialysis) 125/54 mmHg BP Sitting (Post-Dialysis) 155/42 mmHg Concurrent Access: falseCentral Venous Catheter (CVC) Chest (Right) ArterialPD Catheter Upper Quadrant (Right) Venous Sitting Heart Rate Pre-Dialysis 48 BPM Sitting H eart Rate Post-Dialysis 51 BPM Temperature Pre-Dialysis 97.1 degF Temperature Post -Dialysis 97.4 degF January 03, 2023 Backup Hemodialysis Treatment [id number]:00:00.000Z [id number]:24:10.000Z BP Sitting (Pre-Dialysis) 133/43 mmHg BP Sitting (Post-Dialysis) 134/40 mmHg Concurrent Access: falseCentral Venous Catheter (CVC) Chest (Right) ArterialPD Catheter Upper Quadrant (Right) Venous BP Standing (Pre-Dialysis) 132/43 mmHg BP Standing (P ost-Dialysis) 128/44 mmHg Sitting Heart Rate Pre-Dialysis 55 BPM Sitting Heart Rate Post-Dialysis 64 BPM Standing Heart Rate Pre-Dialysis 64 BPM Standing Heart Rate Post-Dialysis 63 BPM Temperature Pre-Dialysis 97.2 degF Temperature Post -Dialysis 97 degF January 01, 2023 Backup Hemodialysis Treatment [id number]:00:00.000Z [id number]:18:11.000Z BP Sitting (Pre-Dialysis) 155/63 mmHg BP Sitting (Post-Dialysis) 150/80 mmHg Concurrent Access: falseCentral Venous Catheter (CVC) Chest (Right) ArterialPD Catheter Upper Quadrant (Right) Venous BP Standing (Pre-Dialysis) 158/61 mmHg BP Standing (P ost-Dialysis) 140/66 mmHg Sitting Heart Rate Pre-Dialysis 54 BPM Sitting Heart Rate Post-Dialysis 64 BPM Standing Heart Rate Pre-Dialysis 53 BPM Standing Heart Rate Post-Dialysis 62 BPM Temperature Pre-Dialysis 97.6 degF Temperature Post -Dialysis 97 degF December 30, 2022 Backup Hemodialysis Treatment [id number]:09:00.000Z [id number]:28:10.000Z BP Sitting (Pre-Dialysis) 154/55 mmHg BP Sitting (Post-Dialysis) 175/77 mmHg Concurrent Access: falseCentral Venous Catheter (CVC) Chest (Right) ArterialPD Catheter Upper Quadrant (Right) Venous Sitting Heart Rate Pre-Dialysis 57 BPM Sitting H eart Rate Post-Dialysis 60 BPM Temperature Pre-Dialysis 97.6 degF Temperature Post -Dialysis 97.1 degF December 27, 2022 Backup Hemodialysis Treatment [id number]:53:00.000Z [id number]:08:00.000Z BP Sitting (Pre-Dialysis) 122/54 mmHg BP Sitting (Post-Dialysis) 150/68 mmHg Concurrent Access: falseCentral Venous Catheter (CVC) Chest (Right) ArterialPD Catheter Upper Quadrant (Right) Venous BP Standing (Pre-Dialysis) 129/49 mmHg BP Standing (P ost-Dialysis) 152/66 mmHg Sitting Heart Rate Pre-Dialysis 62 BPM Sitting Heart Rate Post-Dialysis 60 BPM Standing Heart Rate Pre-Dialysis 58 BPM Standing Heart Rate Post-Dialysis 59 BPM Temperature Pre-Dialysis 97.4 degF Temperature Post -Dialysis 97.1 degF December 25, 2022 Backup Hemodialysis Treatment [id number]:08:21.000Z [id number]:30:21.000Z BP Sitting (Pre-Dialysis) 177/82 mmHg BP Sitting (Post-Dialysis) 164/65 mmHg Concurrent Access: falseCentral Venous Catheter (CVC) Chest (Right) ArterialPD Catheter Upper Quadrant (Right) Venous BP Standing (Pre-Dialysis) 167/71 mmHg BP Standing (P ost-Dialysis) 185/65 mmHg Sitting Heart Rate Pre-Dialysis 58 BPM Sitting Heart Rate Post-Dialysis 66 BPM Standing Heart Rate Pre-Dialysis 61 BPM Standing Heart Rate Post-Dialysis 68 BPM Temperature Pre-Dialysis 98.7 degF Temperature Post -Dialysis 97.2 degF December 23, 2022 Backup Hemodialysis Treatment [id number]:50:56.000Z [id number]:00:45.000Z BP Sitting (Pre-Dialysis) 115/46 mmHg BP Sitting (Post-Dialysis) 156/74 mmHg Concurrent Access: falseCentral Venous Catheter (CVC) Chest (Right) ArterialPD Catheter Upper Quadrant (Right) Venous Sitting Heart Rate Pre-Dialysis 60 BPM BP Standing (Post-Dialysis) 148/72 mmHg Temperature Pre-Dialysis 97.5 degF Sitting Heart Ra te Post-Dialysis 62 BPM Standing Heart Rate Post-Joellen lysis 68 BPM Temperature Post-Dialysis 97 .1 degF December 22, 2022 [facility] Training BP Sitting (Pre-Dialysis) 153/54 mmHg Weight Post-Dialysis 60.8 kg Sitting Heart Rate Pre-Dialysis 60 BPM Temperature Pre-Dialysis 97.2 degF Weight Pre-Dialysis 59.5 kg December 18, 2022 [facility]-Center Hemodialysis Treatment [id number]:36:00.000Z [id number]:50:41.000Z BP Sitting (Pre-Dialysis) 124/64 mmHg BP Sitting (Post-Dialysis) 179/62 mmHg Concurrent Access: falseCentral Venous Catheter (CVC) Chest (Right) ArterialPD Catheter Upper Quadrant (Right) Venous BP Standing (Pre-Dialysis) 132/56 mmHg BP Standing (P ost-Dialysis) 162/55 mmHg Sitting Heart Rate Pre-Dialysis 55 BPM Sitting Heart Rate Post-Dialysis 60 BPM Standing Heart Rate Pre-Dialysis 60 BPM Standing Heart Rate Post-Dialysis 58 BPM Temperature Pre-Dialysis 97.3 degF Temperature Post -Dialysis 97.3 degF December 17, 2022 In-Center Hemodialysis Treatment [id number]:20:51.000Z [id number]:39:30.000Z BP Sitting (Pre-Dialysis) 162/61 mmHg BP Sitting (Post-Dialysis) 176/67 mmHg Concurrent Access: falseCentral Venous Catheter (CVC) Chest (Right) ArterialPD Catheter Upper Quadrant (Right) Venous BP Standing (Pre-Dialysis) 131/41 mmHg BP Standing (P ost-Dialysis) 148/61 mmHg Sitting Heart Rate Pre-Dialysis 58 BPM Sitting Heart Rate Post-Dialysis 61 BPM Standing Heart Rate Pre-Dialysis 59 BPM Standing Heart Rate Post-Dialysis 73 BPM Temperature Pre-Dialysis 97.3 degF Temperature Post -Dialysis 97.2 degF December 15, 2022 In-Center Hemodialysis Treatment [id number]:05:00.000Z [id number]:24:51.000Z BP Sitting (Pre-Dialysis) 155/52 mmHg BP Sitting (Post-Dialysis) 123/56 mmHg Concurrent Access: falseCentral Venous Catheter (CVC) Chest (Right) ArterialPD Catheter Upper Quadrant (Right) Venous BP Standing (Pre-Dialysis) 165/47 mmHg BP Standing (P ost-Dialysis) 118/62 mmHg Sitting Heart Rate Pre-Dialysis 62 BPM Sitting Heart Rate Post-Dialysis 64 BPM Standing Heart Rate Pre-Dialysis 59 BPM Standing Heart Rate Post-Dialysis 67 BPM Temperature Pre-Dialysis 97.3 degF Temperature Post -Dialysis 97.3 degF December 12, 2022 In-Center Hemodialysis Treatment [id number]:08:21.000Z [id number]:01:21.000Z BP Sitting (Pre-Dialysis) 144/66 mmHg BP Sitting (Post-Dialysis) 174/58 mmHg Concurrent Access: falseCentral Venous Catheter (CVC) Chest (Right) ArterialPD Catheter Upper Quadrant (Right) Venous BP Standing (Pre-Dialysis) 152/61 mmHg BP Standing (P ost-Dialysis) 166/65 mmHg Sitting Heart Rate Pre-Dialysis 63 BPM Sitting Heart Rate Post-Dialysis 60 BPM Standing Heart Rate Pre-Dialysis 58 BPM Standing Heart Rate Post-Dialysis 55 BPM Temperature Pre-Dialysis 97.3 degF Temperature Post -Dialysis 97.3 degF December 10, 2022 In-Center Hemodialysis Treatment [id number]:16:00.000Z [id number]:35:22.000Z BP Sitting (Pre-Dialysis) 141/55 mmHg BP Sitting (Post-Dialysis) 146/72 mmHg Concurrent Access: falseCentral Venous Catheter (CVC) Chest (Right) ArterialPD Catheter Upper Quadrant (Right) Venous BP Standing (Pre-Dialysis) 139/50 mmHg BP Standing (P ost-Dialysis) 164/71 mmHg Sitting Heart Rate Pre-Dialysis 53 BPM Sitting Heart Rate Post-Dialysis 55 BPM Standing Heart Rate Pre-Dialysis 53 BPM Standing Heart Rate Post-Dialysis 60 BPM Temperature Pre-Dialysis 97 degF Temperature Post -Dialysis 97.2 degF December 08, 2022 In-Center Hemodialysis Treatment [id number]:20:00.000Z [id number]:36:22.000Z BP Sitting (Pre-Dialysis) 146/61 mmHg BP Sitting (Post-Dialysis) 144/74 mmHg Concurrent Access: falseCentral Venous Catheter (CVC) Chest (Right) ArterialPD Catheter Upper Quadrant (Right) Venous BP Standing (Pre-Dialysis) 154/51 mmHg BP Standing (P ost-Dialysis) 132/62 mmHg Sitting Heart Rate Pre-Dialysis 54 BPM Sitting Heart Rate Post-Dialysis 60 BPM Standing Heart Rate Pre-Dialysis 58 BPM Standing Heart Rate Post-Dialysis 58 BPM Temperature Pre-Dialysis 97.2 degF Temperature Post -Dialysis 97.2 degF December 05, 2022 In-Center Hemodialysis Treatment [id number]:15:37.000Z [id number]:33:37.000Z BP Sitting (Pre-Dialysis) 122/68 mmHg BP Sitting (Post-Dialysis) 127/51 mmHg Concurrent Access: falseCentral Venous Catheter (CVC) Chest (Right) ArterialPD Catheter Upper Quadrant (Right) Venous BP Standing (Pre-Dialysis) 127/51 mmHg BP Standing (P ost-Dialysis) 122/68 mmHg Sitting Heart Rate Pre-Dialysis 52 BPM Sitting Heart Rate Post-Dialysis 55 BPM Standing Heart Rate Pre-Dialysis 54 BPM Standing Heart Rate Post-Dialysis 54 BPM Temperature Pre-Dialysis 97.3 degF Temperature Post -Dialysis 97.1 degF December 03, 2022 In-Center Hemodialysis Treatment [id number]:21:37.000Z [id number]:39:37.000Z BP Sitting (Pre-Dialysis) 128/60 mmHg BP Sitting (Post-Dialysis) 150/53 mmHg Concurrent Access: falseCentral Venous Catheter (CVC) Chest (Right) Arterial BP Standing (Pre-Dialysis) 132/55 mmHg BP Standing (P ost-Dialysis) 148/72 mmHg Sitting Heart Rate Pre-Dialysis 58 BPM Sitting Heart Rate Post-Dialysis 76 BPM Standing Heart Rate Pre-Dialysis 52 BPM Standing Heart Rate Post-Dialysis 74 BPM Temperature Pre-Dialysis 97.3 degF Temperature Post -Dialysis 97.1 degF December 01, 2022 In-Center Hemodialysis Treatment [id number]:17:00.000Z [id number]:31:37.000Z BP Sitting (Pre-Dialysis) 145/55 mmHg BP Sitting (Post-Dialysis) 168/66 mmHg Concurrent Access: falseCentral Venous Catheter (CVC) Chest (Right) Arterial BP Standing (Pre-Dialysis) 141/54 mmHg BP Standing (P ost-Dialysis) 158/84 mmHg Sitting Heart Rate Pre-Dialysis 60 BPM Sitting Heart Rate Post-Dialysis 67 BPM Standing Heart Rate Pre-Dialysis 61 BPM Standing Heart Rate Post-Dialysis 77 BPM Temperature Pre-Dialysis 97.1 degF Temperature Post -Dialysis 97 degF November 28, 2022 In-Center Hemodialysis Treatment [id number]:21:00.000Z [id number]:39:16.000Z BP Sitting (Pre-Dialysis) 132/52 mmHg BP Sitting (Post-Dialysis) 154/56 mmHg Concurrent Access: falseCentral Venous Catheter (CVC) Chest (Right) Arterial Sitting Heart Rate Pre-Dialysis 84 BPM BP Standing (Post-Dialysis) 148/72 mmHg Temperature Pre-Dialysis 97.4 degF Sitting Heart Ra te Post-Dialysis 63 BPM Standing Heart Rate Post-Joellen lysis 64 BPM Temperature Post-Dialysis 97 .1 degF November 26, 2022 In-Center Hemodialysis Treatment [id number]:12:17.000Z [id number]:32:16.000Z BP Sitting (Pre-Dialysis) 170/67 mmHg BP Sitting (Post-Dialysis) 151/66 mmHg Concurrent Access: falseCentral Venous Catheter (CVC) Chest (Right) Arterial BP Standing (Pre-Dialysis) 168/70 mmHg BP Standing (P ost-Dialysis) 152/40 mmHg Sitting Heart Rate Pre-Dialysis 69 BPM Sitting Heart Rate Post-Dialysis 71 BPM Standing Heart Rate Pre-Dialysis 70 BPM Standing Heart Rate Post-Dialysis 76 BPM Temperature Pre-Dialysis 97 degF Temperature Post -Dialysis 97.2 degF November 24, 2022 In-Center Hemodialysis Treatment [id number]:15:16.000Z [id number]:30:16.000Z BP Sitting (Pre-Dialysis) 165/61 mmHg BP Sitting (Post-Dialysis) 157/70 mmHg Concurrent Access: falseCentral Venous Catheter (CVC) Chest (Right) Arterial BP Standing (Pre-Dialysis) 164/60 mmHg BP Standing (P ost-Dialysis) 200/75 mmHg Sitting Heart Rate Pre-Dialysis 56 BPM Sitting Heart Rate Post-Dialysis 69 BPM Standing Heart Rate Pre-Dialysis 60 BPM Standing Heart Rate Post-Dialysis 72 BPM Temperature Pre-Dialysis 97.1 degF Temperature Post -Dialysis 97 degF November 21, 2022 In-Center Hemodialysis Treatment [id number]:06:21.000Z [id number]:23:21.000Z BP Sitting (Pre-Dialysis) 131/57 mmHg BP Sitting (Post-Dialysis) 129/51 mmHg Concurrent Access: falseCentral Venous Catheter (CVC) Chest (Right) Arterial BP Standing (Pre-Dialysis) 134/46 mmHg BP Standing (P ost-Dialysis) 146/66 mmHg Sitting Heart Rate Pre-Dialysis 52 BPM Sitting Heart Rate Post-Dialysis 53 BPM Standing Heart Rate Pre-Dialysis 69 BPM Standing Heart Rate Post-Dialysis 57 BPM Temperature Pre-Dialysis 97 degF Temperature Post -Dialysis 97 degF November 19, 2022 In-Center Hemodialysis Treatment [id number]:12:21.000Z [id number]:29:21.000Z BP Sitting (Pre-Dialysis) 156/62 mmHg BP Sitting (Post-Dialysis) 156/63 mmHg Concurrent Access: falseCentral Venous Catheter (CVC) Chest (Right) Arterial BP Standing (Pre-Dialysis) 159/48 mmHg BP Standing (P ost-Dialysis) 146/64 mmHg Sitting Heart Rate Pre-Dialysis 62 BPM Sitting Heart Rate Post-Dialysis 60 BPM Standing Heart Rate Pre-Dialysis 64 BPM Standing Heart Rate Post-Dialysis 62 BPM Temperature Pre-Dialysis 97.2 degF Temperature Post -Dialysis 97.1 degF November 17, 2022 In-Center Hemodialysis Treatment [id number]:27:00.000Z [id number]:45:28.000Z BP Sitting (Pre-Dialysis) 132/55 mmHg BP Sitting (Post-Dialysis) 112/45 mmHg Concurrent Access: falseCentral Venous Catheter (CVC) Chest (Right) Arterial BP Standing (Pre-Dialysis) 130/65 mmHg BP Standing (P ost-Dialysis) 111/55 mmHg Sitting Heart Rate Pre-Dialysis 51 BPM Sitting Heart Rate Post-Dialysis 62 BPM Standing Heart Rate Pre-Dialysis 60 BPM Standing Heart Rate Post-Dialysis 66 BPM Temperature Pre-Dialysis 97.2 degF Temperature Post -Dialysis 97.5 degF November 13, 2022 In-Center Hemodialysis Treatment [id number]:05:26.000Z [id number]:23:26.000Z BP Sitting (Pre-Dialysis) 142/47 mmHg BP Sitting (Post-Dialysis) 126/56 mmHg Concurrent Access: falseCentral Venous Catheter (CVC) Chest (Right) Arterial BP Standing (Pre-Dialysis) 123/52 mmHg BP Standing (P ost-Dialysis) 126/60 mmHg Sitting Heart Rate Pre-Dialysis 57 BPM Sitting Heart Rate Post-Dialysis 62 BPM Standing Heart Rate Pre-Dialysis 64 BPM Standing Heart Rate Post-Dialysis 58 BPM Temperature Pre-Dialysis 97 degF Temperature Post -Dialysis 97.1 degF November 12, 2022 In-Center Hemodialysis Treatment [id number]:13:34.000Z [id number]:30:34.000Z BP Sitting (Pre-Dialysis) 148/52 mmHg BP Sitting (Post-Dialysis) 116/53 mmHg Concurrent Access: falseCentral Venous Catheter (CVC) Chest (Right) Arterial BP Standing (Pre-Dialysis) 160/49 mmHg BP Standing (P ost-Dialysis) 122/62 mmHg Sitting Heart Rate Pre-Dialysis 57 BPM Sitting Heart Rate Post-Dialysis 68 BPM Standing Heart Rate Pre-Dialysis 56 BPM Standing Heart Rate Post-Dialysis 68 BPM Temperature Pre-Dialysis 97.5 degF Temperature Post -Dialysis 97.2 degF November 10, 2022 In-Center Hemodialysis Treatment [id number]:09:34.000Z [id number]:29:13.000Z BP Sitting (Pre-Dialysis) 133/67 mmHg BP Sitting (Post-Dialysis) 146/52 mmHg Concurrent Access: falseCentral Venous Catheter (CVC) Chest (Right) Arterial BP Standing (Pre-Dialysis) 147/56 mmHg BP Standing (P ost-Dialysis) 136/74 mmHg Sitting Heart Rate Pre-Dialysis 62 BPM Sitting Heart Rate Post-Dialysis 64 BPM Standing Heart Rate Pre-Dialysis 64 BPM Standing Heart Rate Post-Dialysis 60 BPM Temperature Pre-Dialysis 97.3 degF Temperature Post -Dialysis 97.2 degF November 06, 2022 In-Center Hemodialysis Treatment [id number]:25:00.000Z [id number]:46:25.000Z BP Sitting (Pre-Dialysis) 136/42 mmHg BP Sitting (Post-Dialysis) 136/54 mmHg Concurrent Access: falseCentral Venous Catheter (CVC) Chest (Right) Arterial BP Standing (Pre-Dialysis) 130/55 mmHg BP Standing (P ost-Dialysis) 128/56 mmHg Sitting Heart Rate Pre-Dialysis 57 BPM Sitting Heart Rate Post-Dialysis 54 BPM Standing Heart Rate Pre-Dialysis 54 BPM Standing Heart Rate Post-Dialysis 52 BPM Temperature Pre-Dialysis 97 degF Temperature Post -Dialysis 97.2 degF November 05, 2022 In-Center Hemodialysis Treatment [id number]:07:00.000Z [id number]:02:19.000Z BP Sitting (Pre-Dialysis) 150/47 mmHg BP Sitting (Post-Dialysis) 142/73 mmHg Concurrent Access: falseCentral Venous Catheter (CVC) Chest (Right) Arterial BP Standing (Pre-Dialysis) 141/44 mmHg BP Standing (P ost-Dialysis) 132/66 mmHg Sitting Heart Rate Pre-Dialysis 54 BPM Sitting Heart Rate Post-Dialysis 66 BPM Standing Heart Rate Pre-Dialysis 63 BPM Standing Heart Rate Post-Dialysis 72 BPM Temperature Pre-Dialysis 97.4 degF Temperature Post -Dialysis 97.3 degF November 03, 2022 In-Center Hemodialysis Treatment [id number]:23:19.000Z [id number]:26:03.000Z BP Sitting (Pre-Dialysis) 128/54 mmHg BP Sitting (Post-Dialysis) 146/56 mmHg Concurrent Access: falseCentral Venous Catheter (CVC) Chest (Right) Arterial BP Standing (Pre-Dialysis) 132/46 mmHg BP Standing (P ost-Dialysis) 138/60 mmHg Sitting Heart Rate Pre-Dialysis 62 BPM Sitting Heart Rate Post-Dialysis 72 BPM Standing Heart Rate Pre-Dialysis 61 BPM Standing Heart Rate Post-Dialysis 71 BPM Temperature Pre-Dialysis 97.2 degF Temperature Post -Dialysis 97.2 degF October 31, 2022 In-Center Hemodialysis Treatment [id number]:08:51.000Z 4667-67-65S90:24:50.000Z BP Sitting (Pre-Dialysis) 132/74 mmHg BP Sitting (Post-Dialysis) 138/72 mmHg Concurrent Access: falseCentral Venous Catheter (CVC) Chest (Right) Arterial BP Standing (Pre-Dialysis) 128/47 mmHg BP Standing (P ost-Dialysis) 127/68 mmHg Sitting Heart Rate Pre-Dialysis 54 BPM Sitting Heart Rate Post-Dialysis 54 BPM Standing Heart Rate Pre-Dialysis 58 BPM Standing Heart Rate Post-Dialysis 56 BPM Temperature Pre-Dialysis 97.3 degF Temperature Post -Dialysis 97.6 degF October 29, 2022 In-Center Hemodialysis Treatment [id number]:07:50.000Z 8569-10-69G59:23:45.000Z BP Sitting (Pre-Dialysis) 109/55 mmHg BP Sitting (Post-Dialysis) 135/64 mmHg Concurrent Access: falseCentral Venous Catheter (CVC) Chest (Right) Arterial BP Standing (Pre-Dialysis) 127/40 mmHg BP Standing (P ost-Dialysis) 150/60 mmHg Sitting Heart Rate Pre-Dialysis 54 BPM Sitting Heart Rate Post-Dialysis 55 BPM Standing Heart Rate Pre-Dialysis 58 BPM Standing Heart Rate Post-Dialysis 54 BPM Temperature Pre-Dialysis 96.9 degF Temperature Post -Dialysis 97 degF October 27, 2022 In-Center Hemodialysis Treatment [id number]:02:46.000Z 5822-68-12I79:08:45.000Z BP Sitting (Pre-Dialysis) 152/52 mmHg BP Sitting (Post-Dialysis) 178/73 mmHg Concurrent Access: falseCentral Venous Catheter (CVC) Chest (Right) Arterial BP Standing (Pre-Dialysis) 152/50 mmHg Sitti ng Heart Rate Post-Dialysis 59 BPM Sitting Heart Rate Pre-Dialysis 52 BPM Temperatu re Post-Dialysis 97.1 degF Standing Heart Rate Pre-Dialysis 59 BPM Temperature Pre-Dialysis 97.4 degF October 24, 2022 In-Center Hemodialysis Treatment [id number]:17:00.000Z [id number]:37:03.000Z BP Sitting (Pre-Dialysis) 118/56 mmHg BP Sitting (Post-Dialysis) 124/55 mmHg Concurrent Access: falseCentral Venous Catheter (CVC) Chest (Right) Arterial BP Standing (Pre-Dialysis) 129/48 mmHg BP Standing (P ost-Dialysis) 141/56 mmHg Sitting Heart Rate Pre-Dialysis 57 BPM Sitting Heart Rate Post-Dialysis 65 BPM Standing Heart Rate Pre-Dialysis 58 BPM Standing Heart Rate Post-Dialysis 65 BPM Temperature Pre-Dialysis 97 degF Temperature Post -Dialysis 97.2 degF October 22, 2022 In-Center Hemodialysis Treatment 9904-55-18P07:10:22.000Z 5312-78-59E12:28:22.000Z BP Sitting (Pre-Dialysis) 145/61 mmHg BP Sitting (Post-Dialysis) 162/74 mmHg Concurrent Access: falseCentral Venous Catheter (CVC) Chest (Right) Arterial BP Standing (Pre-Dialysis) 145/61 mmHg BP Standing (P ost-Dialysis) 146/84 mmHg Sitting Heart Rate Pre-Dialysis 55 BPM Sitting Heart Rate Post-Dialysis 62 BPM Standing Heart Rate Pre-Dialysis 55 BPM Standing Heart Rate Post-Dialysis 67 BPM Temperature Pre-Dialysis 97.4 degF Temperature Post -Dialysis 97.1 degF October 20, 2022 In-Center Hemodialysis Treatment 6637-92-01J27:09:00.000Z [id number]:20:55.000Z BP Sitting (Pre-Dialysis) 150/61 mmHg BP Sitting (Post-Dialysis) 150/55 mmHg Concurrent Access: falseCentral Venous Catheter (CVC) Chest (Right) Arterial BP Standing (Pre-Dialysis) 148/47 mmHg BP Standing (P ost-Dialysis) 166/52 mmHg Sitting Heart Rate Pre-Dialysis 60 BPM Sitting Heart Rate Post-Dialysis 62 BPM Standing Heart Rate Pre-Dialysis 65 BPM Standing Heart Rate Post-Dialysis 59 BPM Temperature Pre-Dialysis 97.3 degF Temperature Post -Dialysis 97.5 degF October 17, 2022 In-Center Hemodialysis Treatment 5869-29-73L29:09:30.000Z 2783-94-09A49:26:30.000Z BP Sitting (Pre-Dialysis) 146/64 mmHg BP Sitting (Post-Dialysis) 166/72 mmHg Concurrent Access: falseCentral Venous Catheter (CVC) Chest (Right) Arterial BP Standing (Pre-Dialysis) 149/61 mmHg BP Standing (P ost-Dialysis) 156/74 mmHg Sitting Heart Rate Pre-Dialysis 62 BPM Sitting Heart Rate Post-Dialysis 55 BPM Standing Heart Rate Pre-Dialysis 57 BPM Standing Heart Rate Post-Dialysis 60 BPM Temperature Pre-Dialysis 97.2 degF Temperature Post -Dialysis 97.1 degF October 15, 2022 In-Center Hemodialysis Treatment [id number]:53:00.000Z 9770-95-80Q07:12:17.000Z BP Sitting (Pre-Dialysis) 135/53 mmHg BP Sitting (Post-Dialysis) 151/62 mmHg Concurrent Access: falseCentral Venous Catheter (CVC) Chest (Right) Arterial Sitting Heart Rate Pre-Dialysis 51 BPM Sitting H eart Rate Post-Dialysis 54 BPM Temperature Pre-Dialysis 97.6 degF Temperature Post -Dialysis 97.4 degF October 13, 2022 In-Center Hemodialysis Treatment 0307-51-43K93:30:00.000Z 4661-53-16I52:30:38.000Z BP Sitting (Pre-Dialysis) 133/67 mmHg BP Sitting (Post-Dialysis) 146/74 mmHg Concurrent Access: falseCentral Venous Catheter (CVC) Chest (Right) Arterial BP Standing (Pre-Dialysis) 144/55 mmHg Sitti ng Heart Rate Post-Dialysis 126 BPM Sitting Heart Rate Pre-Dialysis 55 BPM Temperatu re Post-Dialysis 96.5 degF Standing Heart Rate Pre-Dialysis 54 BPM Temperature Pre-Dialysis 97.1 degF October 10, 2022 In-Center Hemodialysis Treatment 3070-70-10P63:29:00.000Z 8904-34-86W02:48:37.000Z BP Sitting (Pre-Dialysis) 136/54 mmHg BP Sitting (Post-Dialysis) 165/67 mmHg Concurrent Access: falseCentral Venous Catheter (CVC) Chest (Right) Arterial BP Standing (Pre-Dialysis) 142/53 mmHg BP Standing (P ost-Dialysis) 156/74 mmHg Sitting Heart Rate Pre-Dialysis 72 BPM Sitting Heart Rate Post-Dialysis 60 BPM Standing Heart Rate Pre-Dialysis 60 BPM Standing Heart Rate Post-Dialysis 62 BPM Temperature Pre-Dialysis 97.1 degF Temperature Post -Dialysis 97.2 degF October 08, 2022 In-Center Hemodialysis Treatment 2310-81-97H50:35:00.000Z 2710-49-55U41:53:37.000Z BP Sitting (Pre-Dialysis) 157/51 mmHg BP Sitting (Post-Dialysis) 185/92 mmHg Concurrent Access: falseCentral Venous Catheter (CVC) Chest (Right) Arterial BP Standing (Pre-Dialysis) 154/47 mmHg BP Standing (P ost-Dialysis) 156/74 mmHg Sitting Heart Rate Pre-Dialysis 53 BPM Sitting Heart Rate Post-Dialysis 64 BPM Standing Heart Rate Pre-Dialysis 57 BPM Standing Heart Rate Post-Dialysis 82 BPM Temperature Pre-Dialysis 97.2 degF Temperature Post -Dialysis 97.1 degF October 06, 2022 In-Center Hemodialysis Treatment 6039-37-52D98:37:00.000Z 1602-90-18U90:56:45.000Z BP Sitting (Pre-Dialysis) 133/56 mmHg BP Sitting (Post-Dialysis) 186/88 mmHg Concurrent Access: falseCentral Venous Catheter (CVC) Chest (Right) Arterial BP Standing (Pre-Dialysis) 144/49 mmHg BP Standing (P ost-Dialysis) 145/68 mmHg Sitting Heart Rate Pre-Dialysis 54 BPM Sitting Heart Rate Post-Dialysis 75 BPM Standing Heart Rate Pre-Dialysis 58 BPM Standing Heart Rate Post-Dialysis 77 BPM Temperature Pre-Dialysis 96.8 degF Temperature Post -Dialysis 97 degF October 03, 2022 In-Center Hemodialysis Treatment [id number]:28:00.000Z 1730-04-46H10:43:08.000Z BP Sitting (Pre-Dialysis) 142/62 mmHg BP Sitting (Post-Dialysis) 136/59 mmHg Concurrent Access: falseCentral Venous Catheter (CVC) Chest (Right) Arterial BP Standing (Pre-Dialysis) 148/83 mmHg BP Standing (P ost-Dialysis) 140/50 mmHg Sitting Heart Rate Pre-Dialysis 54 BPM Sitting Heart Rate Post-Dialysis 61 BPM Standing Heart Rate Pre-Dialysis 59 BPM Standing Heart Rate Post-Dialysis 58 BPM Temperature Pre-Dialysis 97.2 degF Temperature Post -Dialysis 97 degF October 01, 2022 In-Center Hemodialysis Treatment [id number]:30:00.000Z 4505-63-77X47:46:08.000Z BP Sitting (Pre-Dialysis) 138/55 mmHg BP Sitting (Post-Dialysis) 179/58 mmHg Concurrent Access: falseCentral Venous Catheter (CVC) Chest (Right) Arterial BP Standing (Pre-Dialysis) 137/91 mmHg BP Standing (P ost-Dialysis) 166/55 mmHg Sitting Heart Rate Pre-Dialysis 52 BPM Sitting Heart Rate Post-Dialysis 61 BPM Standing Heart Rate Pre-Dialysis 53 BPM Standing Heart Rate Post-Dialysis 53 BPM Temperature Pre-Dialysis 97.3 degF Temperature Post -Dialysis 97.1 degF September 29, 2022 In-Center Hemodialysis Treatment 5951-00-38Y05:43:00.000Z 8380-08-74C66:01:08.000Z BP Sitting (Pre-Dialysis) 132/52 mmHg BP Sitting (Post-Dialysis) 125/82 mmHg Concurrent Access: falseCentral Venous Catheter (CVC) Chest (Right) Arterial BP Standing (Pre-Dialysis) 139/55 mmHg BP Standing (P ost-Dialysis) 132/86 mmHg Sitting Heart Rate Pre-Dialysis 52 BPM Sitting Heart Rate Post-Dialysis 65 BPM Standing Heart Rate Pre-Dialysis 52 BPM Standing Heart Rate Post-Dialysis 55 BPM Temperature Pre-Dialysis 96.8 degF Temperature Post -Dialysis 97.1 degF September 26, 2022 In-Center Hemodialysis Treatment 4415-25-95T89:33:00.000Z 0067-59-65B66:32:03.000Z BP Sitting (Pre-Dialysis) 148/55 mmHg BP Sitting (Post-Dialysis) 157/59 mmHg Concurrent Access: falseCentral Venous Catheter (CVC) Chest (Right) Arterial BP Standing (Pre-Dialysis) 156/65 mmHg BP Standing (P ost-Dialysis) 142/62 mmHg Sitting Heart Rate Pre-Dialysis 68 BPM Sitting Heart Rate Post-Dialysis 55 BPM Standing Heart Rate Pre-Dialysis 52 BPM Standing Heart Rate Post-Dialysis 59 BPM Temperature Pre-Dialysis 97.5 degF Temperature Post -Dialysis 97.3 degF September 24, 2022 In-Center Hemodialysis Treatment 2370-59-85H57:29:00.000Z 3051-05-55F76:46:03.000Z BP Sitting (Pre-Dialysis) 139/58 mmHg BP Sitting (Post-Dialysis) 172/65 mmHg Concurrent Access: falseCentral Venous Catheter (CVC) Chest (Right) Arterial BP Standing (Pre-Dialysis) 143/55 mmHg BP Standing (P ost-Dialysis) 168/72 mmHg Sitting Heart Rate Pre-Dialysis 54 BPM Sitting Heart Rate Post-Dialysis 63 BPM Standing Heart Rate Pre-Dialysis 61 BPM Standing Heart Rate Post-Dialysis 64 BPM Temperature Pre-Dialysis 97 degF Temperature Post -Dialysis 97.1 degF September 22, 2022 In-Center Hemodialysis Treatment 7095-05-53P84:34:00.000Z 7180-45-16B98:50:25.000Z BP Sitting (Pre-Dialysis) 169/51 mmHg BP Sitting (Post-Dialysis) 132/56 mmHg Concurrent Access: falseCentral Venous Catheter (CVC) Chest (Right) Arterial BP Standing (Pre-Dialysis) 141/50 mmHg BP Standing (P ost-Dialysis) 135/60 mmHg Sitting Heart Rate Pre-Dialysis 52 BPM Sitting Heart Rate Post-Dialysis 57 BPM Standing Heart Rate Pre-Dialysis 56 BPM Standing Heart Rate Post-Dialysis 60 BPM Temperature Pre-Dialysis 97.6 degF Temperature Post -Dialysis 97.2 degF September 19, 2022 In-Center Hemodialysis Treatment 2049-42-00H41:32:00.000Z 6128-65-96R89:48:13.000Z BP Sitting (Pre-Dialysis) 146/64 mmHg BP Sitting (Post-Dialysis) 168/72 mmHg Concurrent Access: falseCentral Venous Catheter (CVC) Chest (Right) Arterial BP Standing (Pre-Dialysis) 159/58 mmHg BP Standing (P ost-Dialysis) 154/66 mmHg Sitting Heart Rate Pre-Dialysis 62 BPM Sitting Heart Rate Post-Dialysis 64 BPM Standing Heart Rate Pre-Dialysis 59 BPM Standing Heart Rate Post-Dialysis 58 BPM Temperature Pre-Dialysis 96.6 degF Temperature Post -Dialysis 97.2 degF September 17, 2022 In-Center Hemodialysis Treatment 1524-56-47V06:34:00.000Z 6794-83-58G94:49:13.000Z BP Sitting (Pre-Dialysis) 146/74 mmHg BP Sitting (Post-Dialysis) 154/60 mmHg Concurrent Access: falseCentral Venous Catheter (CVC) Chest (Right) Arterial BP Standing (Pre-Dialysis) 159/54 mmHg BP Standing (P ost-Dialysis) 166/62 mmHg Sitting Heart Rate Pre-Dialysis 60 BPM Sitting Heart Rate Post-Dialysis 56 BPM Standing Heart Rate Pre-Dialysis 57 BPM Standing Heart Rate Post-Dialysis 58 BPM Temperature Pre-Dialysis 96.7 degF Temperature Post -Dialysis 97.2 degF September 15, 2022 In-Center Hemodialysis Treatment 8531-12-83O76:21:00.000Z [id number]:31:13.000Z BP Sitting (Pre-Dialysis) 156/53 mmHg BP Sitting (Post-Dialysis) 146/56 mmHg Concurrent Access: falseCentral Venous Catheter (CVC) Chest (Right) Arterial BP Standing (Pre-Dialysis) 162/52 mmHg BP Standing (P ost-Dialysis) 145/59 mmHg Sitting Heart Rate Pre-Dialysis 56 BPM Sitting Heart Rate Post-Dialysis 59 BPM Standing Heart Rate Pre-Dialysis 59 BPM Standing Heart Rate Post-Dialysis 58 BPM Temperature Pre-Dialysis 97.2 degF Temperature Post -Dialysis 97.4 degF September 12, 2022 In-Center Hemodialysis Treatment 8855-13-90R72:27:00.000Z 6658-21-71V75:44:48.000Z BP Sitting (Pre-Dialysis) 146/74 mmHg BP Sitting (Post-Dialysis) 156/66 mmHg Concurrent Access: falseCentral Venous Catheter (CVC) Chest (Right) Arterial BP Standing (Pre-Dialysis) 140/56 mmHg BP Standing (P ost-Dialysis) 146/74 mmHg Sitting Heart Rate Pre-Dialysis 68 BPM Sitting Heart Rate Post-Dialysis 60 BPM Standing Heart Rate Pre-Dialysis 65 BPM Standing Heart Rate Post-Dialysis 65 BPM Temperature Pre-Dialysis 97.3 degF Temperature Post -Dialysis 96.8 degF September 11, 2022 In-Center Hemodialysis Treatment 2533-01-48V96:34:00.000Z 5844-62-03G09:53:19.000Z BP Sitting (Pre-Dialysis) 142/51 mmHg BP Sitting (Post-Dialysis) 140/53 mmHg Concurrent Access: falseCentral Venous Catheter (CVC) Chest (Right) Arterial BP Standing (Pre-Dialysis) 148/56 mmHg BP Standing (P ost-Dialysis) 153/70 mmHg Sitting Heart Rate Pre-Dialysis 55 BPM Sitting Heart Rate Post-Dialysis 56 BPM Standing Heart Rate Pre-Dialysis 66 BPM Standing Heart Rate Post-Dialysis 59 BPM Temperature Pre-Dialysis 97 degF Temperature Post -Dialysis 97.1 degF September 08, 2022 In-Center Hemodialysis Treatment [id number]:38:00.000Z 3498-21-57S29:55:01.000Z BP Sitting (Pre-Dialysis) 132/74 mmHg BP Sitting (Post-Dialysis) 184/66 mmHg Concurrent Access: falseCentral Venous Catheter (CVC) Chest (Right) Arterial BP Standing (Pre-Dialysis) 142/66 mmHg BP Standing (P ost-Dialysis) 159/65 mmHg Sitting Heart Rate Pre-Dialysis 66 BPM Sitting Heart Rate Post-Dialysis 57 BPM Standing Heart Rate Pre-Dialysis 57 BPM Standing Heart Rate Post-Dialysis 68 BPM Temperature Pre-Dialysis 97.2 degF Temperature Post -Dialysis 97.2 degF September 05, 2022 In-Center Hemodialysis Treatment 6680-22-38F75:34:00.000Z 5097-69-38W79:30:26.000Z BP Sitting (Pre-Dialysis) 150/64 mmHg BP Sitting (Post-Dialysis) 201/72 mmHg Concurrent Access: falseCentral Venous Catheter (CVC) Chest (Right) Arterial BP Standing (Pre-Dialysis) 155/63 mmHg BP Standing (P ost-Dialysis) 199/86 mmHg Sitting Heart Rate Pre-Dialysis 58 BPM Sitting Heart Rate Post-Dialysis 69 BPM Standing Heart Rate Pre-Dialysis 63 BPM Standing Heart Rate Post-Dialysis 58 BPM Temperature Pre-Dialysis 97.5 degF Temperature Post -Dialysis 97.1 degF September 03, 2022 In-Center Hemodialysis Treatment 8901-06-69J32:40:00.000Z [id number]:32:26.000Z BP Sitting (Pre-Dialysis) 151/53 mmHg BP Sitting (Post-Dialysis) 155/58 mmHg Concurrent Access: falseCentral Venous Catheter (CVC) Chest (Right) Arterial BP Standing (Pre-Dialysis) 156/47 mmHg BP Standing (P ost-Dialysis) 180/67 mmHg Sitting Heart Rate Pre-Dialysis 51 BPM Sitting Heart Rate Post-Dialysis 58 BPM Standing Heart Rate Pre-Dialysis 57 BPM Standing Heart Rate Post-Dialysis 56 BPM Temperature Pre-Dialysis 97.4 degF Temperature Post -Dialysis 97.1 degF September 01, 2022 In-Center Hemodialysis Treatment [id number]:52:00.000Z 1761-78-82O92:11:26.000Z BP Sitting (Pre-Dialysis) 143/54 mmHg BP Sitting (Post-Dialysis) 205/71 mmHg Concurrent Access: falseCentral Venous Catheter (CVC) Chest (Right) Arterial BP Standing (Pre-Dialysis) 151/46 mmHg BP Standing (P ost-Dialysis) 200/63 mmHg Sitting Heart Rate Pre-Dialysis 53 BPM Sitting Heart Rate Post-Dialysis 62 BPM Standing Heart Rate Pre-Dialysis 58 BPM Standing Heart Rate Post-Dialysis 61 BPM Temperature Pre-Dialysis 97.8 degF Temperature Post -Dialysis 97 degF August 29, 2022 In-Center Hemodialysis Treatment 6143-06-04L62:36:00.000Z 1436-74-80R66:54:26.000Z BP Sitting (Pre-Dialysis) 128/64 mmHg BP Sitting (Post-Dialysis) 122/64 mmHg Concurrent Access: falseCentral Venous Catheter (CVC) Chest (Right) Arterial BP Standing (Pre-Dialysis) 137/61 mmHg BP Standing (P ost-Dialysis) 118/66 mmHg Sitting Heart Rate Pre-Dialysis 60 BPM Sitting Heart Rate Post-Dialysis 68 BPM Standing Heart Rate Pre-Dialysis 56 BPM Standing Heart Rate Post-Dialysis 72 BPM Temperature Pre-Dialysis 97.1 degF Temperature Post -Dialysis 97.2 degF August 27, 2022 In-Center Hemodialysis Treatment 9803-93-08V99:38:26.000Z 8763-90-34U55:55:26.000Z BP Sitting (Pre-Dialysis) 157/52 mmHg BP Sitting (Post-Dialysis) 189/99 mmHg Concurrent Access: falseCentral Venous Catheter (CVC) Chest (Right) Arterial BP Standing (Pre-Dialysis) 174/60 mmHg Sitti ng Heart Rate Post-Dialysis 65 BPM Sitting Heart Rate Pre-Dialysis 54 BPM Temperatu re Post-Dialysis 97.2 degF Standing Heart Rate Pre-Dialysis 59 BPM Temperature Pre-Dialysis 97.1 degF August 25, 2022 In-Center Hemodialysis Treatment 6742-17-42Z78:40:26.000Z 5352-20-45J08:38:26.000Z BP Sitting (Pre-Dialysis) 168/88 mmHg BP Sitting (Post-Dialysis) 173/74 mmHg Concurrent Access: falseCentral Venous Catheter (CVC) Chest (Right) Arterial BP Standing (Pre-Dialysis) 170/96 mmHg BP Standing (P ost-Dialysis) 166/82 mmHg Sitting Heart Rate Pre-Dialysis 72 BPM Sitting Heart Rate Post-Dialysis 78 BPM Standing Heart Rate Pre-Dialysis 60 BPM Standing Heart Rate Post-Dialysis 69 BPM Temperature Pre-Dialysis 97.4 degF Temperature Post -Dialysis 97.3 degF August 21, 2022 In-Center Hemodialysis Treatment 7904-34-38V50:01:00.000Z 0268-06-81T92:18:32.000Z BP Sitting (Pre-Dialysis) 171/52 mmHg BP Sitting (Post-Dialysis) 133/60 mmHg Concurrent Access: falseCentral Venous Catheter (CVC) Chest (Right) Arterial BP Standing (Pre-Dialysis) 165/56 mmHg BP Standing (P ost-Dialysis) 163/60 mmHg Sitting Heart Rate Pre-Dialysis 67 BPM Sitting Heart Rate Post-Dialysis 63 BPM Standing Heart Rate Pre-Dialysis 64 BPM Standing Heart Rate Post-Dialysis 62 BPM Temperature Pre-Dialysis 97.5 degF Temperature Post -Dialysis 97.1 degF August 20, 2022 In-Center Hemodialysis Treatment 1463-83-13Q40:44:00.000Z 5780-99-83F71:01:03.000Z BP Sitting (Pre-Dialysis) 139/49 mmHg BP Sitting (Post-Dialysis) 155/59 mmHg Concurrent Access: falseCentral Venous Catheter (CVC) Chest (Right) Arterial BP Standing (Pre-Dialysis) 158/50 mmHg BP Standing (P ost-Dialysis) 170/59 mmHg Sitting Heart Rate Pre-Dialysis 55 BPM Sitting Heart Rate Post-Dialysis 63 BPM Standing Heart Rate Pre-Dialysis 58 BPM Standing Heart Rate Post-Dialysis 60 BPM Temperature Pre-Dialysis 97 degF Temperature Post -Dialysis 97 degF August 18, 2022 In-Center Hemodialysis Treatment [id number]:36:03.000Z 8702-59-72G79:52:03.000Z BP Sitting (Pre-Dialysis) 128/72 mmHg BP Sitting (Post-Dialysis) 187/65 mmHg Concurrent Access: falseCentral Venous Catheter (CVC) Chest (Right) Arterial BP Standing (Pre-Dialysis) 130/58 mmHg BP Standing (P ost-Dialysis) 185/84 mmHg Sitting Heart Rate Pre-Dialysis 68 BPM Sitting Heart Rate Post-Dialysis 67 BPM Standing Heart Rate Pre-Dialysis 76 BPM Standing Heart Rate Post-Dialysis 72 BPM Temperature Pre-Dialysis 97.2 degF Temperature Post -Dialysis 97.2 degF August 15, 2022 In-Center Hemodialysis Treatment [id number]:40:14.000Z 2603-98-75U59:57:14.000Z BP Sitting (Pre-Dialysis) 128/80 mmHg BP Sitting (Post-Dialysis) 131/51 mmHg Concurrent Access: falseCentral Venous Catheter (CVC) Chest (Right) Arterial BP Standing (Pre-Dialysis) 152/58 mmHg BP Standing (P ost-Dialysis) 146/54 mmHg Sitting Heart Rate Pre-Dialysis 70 BPM Sitting Heart Rate Post-Dialysis 61 BPM Standing Heart Rate Pre-Dialysis 59 BPM Standing Heart Rate Post-Dialysis 67 BPM Temperature Pre-Dialysis 97.1 degF Temperature Post -Dialysis 97.1 degF August 13, 2022 In-Center Hemodialysis Treatment 8564-89-59C37:22:00.000Z 0757-87-21A87:43:40.000Z BP Sitting (Pre-Dialysis) 150/60 mmHg BP Sitting (Post-Dialysis) 118/66 mmHg Concurrent Access: falseCentral Venous Catheter (CVC) Chest (Right) Arterial BP Standing (Pre-Dialysis) 158/58 mmHg BP Standing (P ost-Dialysis) 129/64 mmHg Sitting Heart Rate Pre-Dialysis 53 BPM Sitting Heart Rate Post-Dialysis 70 BPM Standing Heart Rate Pre-Dialysis 58 BPM Standing Heart Rate Post-Dialysis 64 BPM Temperature Pre-Dialysis 97.1 degF Temperature Post -Dialysis 97 degF August 11, 2022 In-Center Hemodialysis Treatment 4993-23-40Q03:20:00.000Z 9018-66-55F53:33:15.000Z BP Sitting (Pre-Dialysis) 159/60 mmHg BP Sitting (Post-Dialysis) 156/69 mmHg Concurrent Access: falseCentral Venous Catheter (CVC) Chest (Right) Arterial BP Standing (Pre-Dialysis) 153/72 mmHg BP Standing (P ost-Dialysis) 187/66 mmHg Sitting Heart Rate Pre-Dialysis 50 BPM Sitting Heart Rate Post-Dialysis 62 BPM Standing Heart Rate Pre-Dialysis 65 BPM Standing Heart Rate Post-Dialysis 63 BPM Temperature Pre-Dialysis 97.1 degF Temperature Post -Dialysis 97 degF August 08, 2022 In-Center Hemodialysis Treatment 7766-55-36X30:46:00.000Z 0122-79-69P23:04:31.000Z BP Sitting (Pre-Dialysis) 156/74 mmHg BP Sitting (Post-Dialysis) 154/91 mmHg Concurrent Access: falseCentral Venous Catheter (CVC) Chest (Right) Arterial BP Standing (Pre-Dialysis) 161/54 mmHg BP Standing (P ost-Dialysis) 148/82 mmHg Sitting Heart Rate Pre-Dialysis 70 BPM Sitting Heart Rate Post-Dialysis 63 BPM Standing Heart Rate Pre-Dialysis 62 BPM Standing Heart Rate Post-Dialysis 66 BPM Temperature Pre-Dialysis 96.6 degF Temperature Post -Dialysis 97.1 degF August 06, 2022 In-Center Hemodialysis Treatment [id number]:10:00.000Z 8462-91-63X47:27:27.000Z BP Sitting (Pre-Dialysis) 132/98 mmHg BP Sitting (Post-Dialysis) 113/52 mmHg Concurrent Access: falseCentral Venous Catheter (CVC) Chest (Right) Arterial BP Standing (Pre-Dialysis) 142/100 mmHg BP Standing (P ost-Dialysis) 102/77 mmHg Sitting Heart Rate Pre-Dialysis 72 BPM Sitting Heart Rate Post-Dialysis 65 BPM Standing Heart Rate Pre-Dialysis 66 BPM Standing Heart Rate Post-Dialysis 59 BPM Temperature Pre-Dialysis 97.2 degF Temperature Post -Dialysis 97 degF August 04, 2022 In-Center Hemodialysis Treatment 8947-01-84Y89:10:26.000Z 6900-90-48Z53:25:27.000Z BP Sitting (Pre-Dialysis) 166/74 mmHg BP Sitting (Post-Dialysis) 178/70 mmHg Concurrent Access: falseCentral Venous Catheter (CVC) Chest (Right) Arterial BP Standing (Pre-Dialysis) 155/86 mmHg BP Standing (P ost-Dialysis) 168/72 mmHg Sitting Heart Rate Pre-Dialysis 82 BPM Sitting Heart Rate Post-Dialysis 68 BPM Standing Heart Rate Pre-Dialysis 64 BPM Standing Heart Rate Post-Dialysis 74 BPM Temperature Pre-Dialysis 97.3 degF Temperature Post -Dialysis 97.3 degF August 01, 2022 In-Center Hemodialysis Treatment [id number]:09:00.000Z [id number]:28:13.000Z BP Sitting (Pre-Dialysis) 176/84 mmHg BP Sitting (Post-Dialysis) 179/73 mmHg Concurrent Access: falseCentral Venous Catheter (CVC) Chest (Right) Arterial BP Standing (Pre-Dialysis) 180/60 mmHg BP Standing (P ost-Dialysis) 168/72 mmHg Sitting Heart Rate Pre-Dialysis 55 BPM Sitting Heart Rate Post-Dialysis 67 BPM Standing Heart Rate Pre-Dialysis 56 BPM Standing Heart Rate Post-Dialysis 70 BPM Temperature Pre-Dialysis 97.3 degF Temperature Post -Dialysis 97.3 degF July 30, 2022 In-Center Hemodialysis Treatment [id number]:35:00.000Z [id number]:52:45.000Z BP Sitting (Pre-Dialysis) 154/52 mmHg BP Sitting (Post-Dialysis) 149/53 mmHg Concurrent Access: falseCentral Venous Catheter (CVC) Chest (Right) Arterial BP Standing (Pre-Dialysis) 170/51 mmHg BP Standing (P ost-Dialysis) 159/53 mmHg Sitting Heart Rate Pre-Dialysis 59 BPM Sitting Heart Rate Post-Dialysis 61 BPM Standing Heart Rate Pre-Dialysis 59 BPM Standing Heart Rate Post-Dialysis 61 BPM Temperature Pre-Dialysis 97.1 degF Temperature Post -Dialysis 97 degF July 28, 2022 In-Center Hemodialysis Treatment [id number]:09:00.000Z [id number]:25:45.000Z BP Sitting (Pre-Dialysis) 176/66 mmHg BP Sitting (Post-Dialysis) 160/58 mmHg Concurrent Access: falseCentral Venous Catheter (CVC) Chest (Right) Arterial BP Standing (Pre-Dialysis) 185/102 mmHg BP Standing (P ost-Dialysis) 186/64 mmHg Sitting Heart Rate Pre-Dialysis 59 BPM Sitting Heart Rate Post-Dialysis 60 BPM Standing Heart Rate Pre-Dialysis 56 BPM Standing Heart Rate Post-Dialysis 58 BPM Temperature Pre-Dialysis 97.3 degF Temperature Post -Dialysis 98.6 degF July 25, 2022 In-Center Hemodialysis Treatment [id number]:07:00.000Z [id number]:24:36.000Z BP Sitting (Pre-Dialysis) 187/57 mmHg BP Sitting (Post-Dialysis) 181/60 mmHg Concurrent Access: falseCentral Venous Catheter (CVC) Chest (Right) Arterial Sitting Heart Rate Pre-Dialysis 59 BPM BP Standing (Post-Dialysis) 172/55 mmHg Temperature Pre-Dialysis 97.5 degF Sitting Heart Ra te Post-Dialysis 61 BPM Standing Heart Rate Post-Joellen lysis 68 BPM Temperature Post-Dialysis 97 .1 degF July 23, 2022 In-Center Hemodialysis Treatment [id number]:07:00.000Z [id number]:10:18.000Z BP Sitting (Pre-Dialysis) 159/66 mmHg BP Sitting (Post-Dialysis) 158/67 mmHg Concurrent Access: falseCentral Venous Catheter (CVC) Chest (Right) Arterial BP Standing (Pre-Dialysis) 174/61 mmHg BP Standing (P ost-Dialysis) 145/55 mmHg Sitting Heart Rate Pre-Dialysis 55 BPM Sitting Heart Rate Post-Dialysis 63 BPM Standing Heart Rate Pre-Dialysis 58 BPM Standing Heart Rate Post-Dialysis 67 BPM Temperature Pre-Dialysis 97.2 degF Temperature Post -Dialysis 97.1 degF July 21, 2022 In-Center Hemodialysis Treatment [id number]:13:36.000Z [id number]:27:36.000Z BP Sitting (Pre-Dialysis) 168/72 mmHg BP Sitting (Post-Dialysis) 165/86 mmHg Concurrent Access: falseCentral Venous Catheter (CVC) Chest (Right) Arterial BP Standing (Pre-Dialysis) 184/66 mmHg BP Standing (P ost-Dialysis) 156/86 mmHg Sitting Heart Rate Pre-Dialysis 68 BPM Sitting Heart Rate Post-Dialysis 70 BPM Standing Heart Rate Pre-Dialysis 74 BPM Standing Heart Rate Post-Dialysis 72 BPM Temperature Pre-Dialysis 97.3 degF Temperature Post -Dialysis 97.2 degF 2022 In-Center Hemodialysis Treatment [id number]:27:00.000Z [id number]:47:29.000Z BP Sitting (Pre-Dialysis) 191/66 mmHg BP Sitting (Post-Dialysis) 176/74 mmHg Concurrent Access: falseCentral Venous Catheter (CVC) Chest (Right) Arterial BP Standing (Pre-Dialysis) 202/59 mmHg BP Standing (P ost-Dialysis) 168/72 mmHg Sitting Heart Rate Pre-Dialysis 53 BPM Sitting Heart Rate Post-Dialysis 68 BPM Standing Heart Rate Pre-Dialysis 53 BPM Standing Heart Rate Post-Dialysis 77 BPM Temperature Pre-Dialysis 97.3 degF Temperature Post -Dialysis 97.3 degF July 16, 2022 In-Center Hemodialysis Treatment [id number]:32:00.000Z [id number]:48:30.000Z BP Sitting (Pre-Dialysis) 140/54 mmHg BP Sitting (Post-Dialysis) 136/57 mmHg Concurrent Access: falseCentral Venous Catheter (CVC) Chest (Right) Arterial BP Standing (Pre-Dialysis) 151/60 mmHg BP Standing (P ost-Dialysis) 160/67 mmHg Sitting Heart Rate Pre-Dialysis 54 BPM Sitting Heart Rate Post-Dialysis 64 BPM Standing Heart Rate Pre-Dialysis 56 BPM Standing Heart Rate Post-Dialysis 63 BPM Temperature Pre-Dialysis 97 degF Temperature Post -Dialysis 97 degF July 14, 2022 In-Center Hemodialysis Treatment [id number]:17:00.000Z [id number]:34:29.000Z BP Sitting (Pre-Dialysis) 156/64 mmHg BP Sitting (Post-Dialysis) 186/95 mmHg Concurrent Access: falseCentral Venous Catheter (CVC) Chest (Right) Arterial BP Standing (Pre-Dialysis) 166/53 mmHg BP Standing (P ost-Dialysis) 176/84 mmHg Sitting Heart Rate Pre-Dialysis 50 BPM Sitting Heart Rate Post-Dialysis 63 BPM Standing Heart Rate Pre-Dialysis 53 BPM Standing Heart Rate Post-Dialysis 68 BPM Temperature Pre-Dialysis 97.4 degF Temperature Post -Dialysis 97.2 degF July 11, 2022 In-Center Hemodialysis Treatment [id number]:57:00.000Z [id number]:00:07.000Z BP Sitting (Pre-Dialysis) 146/68 mmHg BP Sitting (Post-Dialysis) 190/70 mmHg Concurrent Access: falseCentral Venous Catheter (CVC) Chest (Right) Arterial BP Standing (Pre-Dialysis) 156/74 mmHg BP Standing (P ost-Dialysis) 172/66 mmHg Sitting Heart Rate Pre-Dialysis 62 BPM Sitting Heart Rate Post-Dialysis 59 BPM Standing Heart Rate Pre-Dialysis 56 BPM Standing Heart Rate Post-Dialysis 59 BPM Temperature Pre-Dialysis 97.2 degF Temperature Post -Dialysis 97.7 degF July 09, 2022 In-Center Hemodialysis Treatment [id number]:11:00.000Z [id number]:29:19.000Z BP Sitting (Pre-Dialysis) 137/67 mmHg BP Sitting (Post-Dialysis) 135/65 mmHg Concurrent Access: falseCentral Venous Catheter (CVC) Chest (Right) Arterial BP Standing (Pre-Dialysis) 157/65 mmHg BP Standing (P ost-Dialysis) 154/61 mmHg Sitting Heart Rate Pre-Dialysis 79 BPM Sitting Heart Rate Post-Dialysis 62 BPM Standing Heart Rate Pre-Dialysis 56 BPM Standing Heart Rate Post-Dialysis 62 BPM Temperature Pre-Dialysis 97.6 degF Temperature Post -Dialysis 97.1 degF July 07, 2022 In-Center Hemodialysis Treatment [id number]:14:00.000Z [id number]:30:09.000Z BP Sitting (Pre-Dialysis) 172/59 mmHg BP Sitting (Post-Dialysis) 160/59 mmHg Concurrent Access: falseCentral Venous Catheter (CVC) Chest (Right) Arterial BP Standing (Pre-Dialysis) 186/69 mmHg BP Standing (P ost-Dialysis) 175/87 mmHg Sitting Heart Rate Pre-Dialysis 55 BPM Sitting Heart Rate Post-Dialysis 61 BPM Standing Heart Rate Pre-Dialysis 68 BPM Standing Heart Rate Post-Dialysis 62 BPM Temperature Pre-Dialysis 97.1 degF Temperature Post -Dialysis 97.3 degF July 04, 2022 In-Center Hemodialysis Treatment [id number]:13:00.000Z [id number]:28:54.000Z BP Sitting (Pre-Dialysis) 172/53 mmHg BP Sitting (Post-Dialysis) 200/70 mmHg Concurrent Access: falseCentral Venous Catheter (CVC) Chest (Right) Arterial BP Standing (Pre-Dialysis) 187/52 mmHg BP Standing (P ost-Dialysis) 188/72 mmHg Sitting Heart Rate Pre-Dialysis 59 BPM Sitting Heart Rate Post-Dialysis 72 BPM Standing Heart Rate Pre-Dialysis 65 BPM Standing Heart Rate Post-Dialysis 61 BPM Temperature Pre-Dialysis 97.3 degF Temperature Post -Dialysis 98.3 degF July 02, 2022 In-Center Hemodialysis Treatment [id number]:12:00.000Z [id number]:26:54.000Z BP Sitting (Pre-Dialysis) 112/68 mmHg BP Sitting (Post-Dialysis) 156/72 mmHg Concurrent Access: falseCentral Venous Catheter (CVC) Chest (Right) Arterial BP Standing (Pre-Dialysis) 111/76 mmHg BP Standing (P ost-Dialysis) 148/68 mmHg Sitting Heart Rate Pre-Dialysis 82 BPM Sitting Heart Rate Post-Dialysis 68 BPM Standing Heart Rate Pre-Dialysis 72 BPM Standing Heart Rate Post-Dialysis 72 BPM Temperature Pre-Dialysis 97.3 degF Temperature Post -Dialysis 97.1 degF June 30, 2022 In-Center Hemodialysis Treatment [id number]:09:00.000Z [id number]:28:29.000Z BP Sitting (Pre-Dialysis) 138/66 mmHg BP Sitting (Post-Dialysis) 158/77 mmHg Concurrent Access: falseCentral Venous Catheter (CVC) Chest (Right) Arterial BP Standing (Pre-Dialysis) 145/65 mmHg BP Standing (P ost-Dialysis) 168/78 mmHg Sitting Heart Rate Pre-Dialysis 87 BPM Sitting Heart Rate Post-Dialysis 68 BPM Standing Heart Rate Pre-Dialysis 88 BPM Standing Heart Rate Post-Dialysis 66 BPM Temperature Pre-Dialysis 97.1 degF Temperature Post -Dialysis 97.1 degF June 27, 2022 In-Center Hemodialysis Treatment [id number]:15:00.000Z [id number]:34:30.000Z BP Sitting (Pre-Dialysis) 174/62 mmHg BP Sitting (Post-Dialysis) 132/56 mmHg Concurrent Access: falseCentral Venous Catheter (CVC) Chest (Right) Arterial BP Standing (Pre-Dialysis) 178/64 mmHg BP Standing (P ost-Dialysis) 130/57 mmHg Sitting Heart Rate Pre-Dialysis 65 BPM Sitting Heart Rate Post-Dialysis 65 BPM Standing Heart Rate Pre-Dialysis 88 BPM Standing Heart Rate Post-Dialysis 70 BPM Temperature Pre-Dialysis 97.1 degF Temperature Post -Dialysis 97.1 degF June 25, 2022 In-Center Hemodialysis Treatment [id number]:00:00.000Z [id number]:17:30.000Z BP Sitting (Pre-Dialysis) 168/62 mmHg BP Sitting (Post-Dialysis) 194/58 mmHg Concurrent Access: falseCentral Venous Catheter (CVC) Chest (Right) Arterial BP Standing (Pre-Dialysis) 187/67 mmHg BP Standing (P ost-Dialysis) 169/64 mmHg Sitting Heart Rate Pre-Dialysis 56 BPM Sitting Heart Rate Post-Dialysis 64 BPM Standing Heart Rate Pre-Dialysis 54 BPM Standing Heart Rate Post-Dialysis 68 BPM Temperature Pre-Dialysis 97.4 degF Temperature Post -Dialysis 97.3 degF June 23, 2022 In-Center Hemodialysis Treatment [id number]:13:29.000Z [id number]:45:41.000Z BP Sitting (Pre-Dialysis) 168/72 mmHg BP Sitting (Post-Dialysis) 163/61 mmHg Concurrent Access: falseCentral Venous Catheter (CVC) Chest (Right) Arterial BP Standing (Pre-Dialysis) 182/56 mmHg BP Standing (P ost-Dialysis) 156/74 mmHg Sitting Heart Rate Pre-Dialysis 66 BPM Sitting Heart Rate Post-Dialysis 66 BPM Standing Heart Rate Pre-Dialysis 64 BPM Standing Heart Rate Post-Dialysis 68 BPM Temperature Pre-Dialysis 97.2 degF Temperature Post -Dialysis 97 degF June 20, 2022 In-Center Hemodialysis Treatment [id number]:16:00.000Z [id number]:30:08.000Z BP Sitting (Pre-Dialysis) 118/64 mmHg BP Sitting (Post-Dialysis) 132/74 mmHg Concurrent Access: falseCentral Venous Catheter (CVC) Chest (Right) Arterial BP Standing (Pre-Dialysis) 126/74 mmHg BP Standing (P ost-Dialysis) 128/68 mmHg Sitting Heart Rate Pre-Dialysis 64 BPM Sitting Heart Rate Post-Dialysis 66 BPM Standing Heart Rate Pre-Dialysis 72 BPM Standing Heart Rate Post-Dialysis 68 BPM Temperature Pre-Dialysis 97.2 degF Temperature Post -Dialysis 96.7 degF June 19, 2022 In-Center Hemodialysis Treatment [id number]:26:00.000Z [id number]:01:09.000Z BP Sitting (Pre-Dialysis) 149/56 mmHg BP Sitting (Post-Dialysis) 176/72 mmHg Concurrent Access: falseCentral Venous Catheter (CVC) Chest (Right) Arterial BP Standing (Pre-Dialysis) 97/73 mmHg BP Standing (P ost-Dialysis) 164/69 mmHg Sitting Heart Rate Pre-Dialysis 57 BPM Sitting Heart Rate Post-Dialysis 66 BPM Standing Heart Rate Pre-Dialysis 58 BPM Standing Heart Rate Post-Dialysis 65 BPM Temperature Pre-Dialysis 97.3 degF Temperature Post -Dialysis 98.2 degF June 16, 2022 In-Center Hemodialysis Treatment [id number]:06:00.000Z [id number]:29:51.000Z BP Sitting (Pre-Dialysis) 159/59 mmHg BP Sitting (Post-Dialysis) 133/96 mmHg Concurrent Access: falseCentral Venous Catheter (CVC) Chest (Right) Arterial BP Standing (Pre-Dialysis) 161/62 mmHg BP Standing (P ost-Dialysis) 177/62 mmHg Sitting Heart Rate Pre-Dialysis 72 BPM Sitting Heart Rate Post-Dialysis 77 BPM Standing Heart Rate Pre-Dialysis 66 BPM Standing Heart Rate Post-Dialysis 62 BPM Temperature Pre-Dialysis 97.3 degF Temperature Post -Dialysis 97.3 degF DIALYSIS ORDER Dialysis Procedure Orders Type of Dialysis Procedure Order Order Date/Time Observations [facility] November 30, 2024 Target Weight 60 kg Ordered Access Type Peritoneal dialysis catheter Vendor OfficeDrop Total Fill Volume per 24 Hour 46246 mL Target Cycler Total Time 9hr Treatment Location Display At Patient's Home Target Weight with Prescribed Day Fill N o Training Element No Training Incremental Increase Flag No Day Exchange Delivery Method No Day Exch kianna Overnight Exchange Delivery Method Cycle r Overnight Exchange Number of Exchanges 4 Overnight Exchange Calcium 2.5 mEq/L Overnight Exchange Magnesium 0.5 mEq/L Overnight Exchange Target Dwell Time 9 h r Min Overnight Exchange Last Fill Target Dwel l TimeOvernight Exchange Info 15 hr 0 Min Fill Number: 1 pd_solution_strength_code_id Varied-See Instruction(s) Fill Number: 2 fill_volume pd_solution_strength_code_id Varied-See Instruction(s) Fill Number: 3 fill_volume pd_solution_strength_code_id Varied-See Instruction(s) Fill Number: 4 fill_volume pd_solution_strength_code_id Varied-See Instruction(s) Fill Number: Last fill_volume pd_solution_strength_code_id Varied-See Instruction(s) [facility] 2024 Observation Value Target Weight 61.5 kg Ordered Access Type Peritoneal dialysis catheter Vendor OfficeDrop Total Fill Volume per 24 Hour 85706 mL Target Cycler Total Time 9hr Treatment Location Display At Patient's Home Target Weight with Prescribed Day Fill N o Training Element No Training Incremental Increase Flag No Day Exchange Delivery Method No Day Exch kianna Overnight Exchange Delivery Method Cycle r Overnight Exchange Number of Exchanges 4 Overnight Exchange Calcium 2.5 mEq/L Overnight Exchange Magnesium 0.5 mEq/L Overnight Exchange Target Dwell Time 9 h r Min Overnight Exchange Last Fill Target Dwel l TimeOvernight Exchange Info 15 hr 0 Min Fill Number: 1 pd_solution_strength_code_id Varied-See Instruction(s) Fill Number: 2 fill_volume pd_solution_strength_code_id Varied-See Instruction(s) Fill Number: 3 fill_volume pd_solution_strength_code_id Varied-See Instruction(s) Fill Number: 4 fill_volume pd_solution_strength_code_id Varied-See Instruction(s) Fill Number: Last fill_volume pd_solution_strength_code_id Varied-See Instruction(s) Results Adequacy Description Draw Date Result/Unit Status Ref Range Result Comments BUN/CREAT 2025-03-12 03:31:21 5.4 Calc F 8.2-46.0 Urea nitrogen [Mass/volume] in Serum or Plasma 2025-03-12 03:30:19 36 mg/dL F 9.0-23.0 Creatinine [Mass/volume] in Serum or Plasma 2025-03-12 03:30:19 6.68 mg/dL F 0.55-1.02 NPCR PD FEMALE 2025-02-10 00:15:20 0.47 G/KG/D F UREA CLR UR/BSA 2025-02-10 00:15:20 0.6 mL/min F 64.0-99.0 CRE CLR UR/BSA 2025-02-10 00:15:20 3 mL/min F 75.0-115.0 UREA CLR UR 2025-02-10 00:15:20 0.6 mL/min F NPNA-PD FEMALE 2025-02-10 00:15:20 0.66 G/KG/D F PCR PD FEMALE 2025-02-10 00:15:20 23.4 g/day F PNA (PD) 2025-02-10 00:15:20 32.8 g/day F Urea Gen Rate 2025-02-10 00:15:20 3.4 GM/D F CRE CLR UR 2025-02-10 00:15:20 3 mL/min F 88.0-128.0 L/WK/1.73 RESID 2025-02-10 00:15:20 19.1 L/WK/B F L/WK/1.73 TOTAL 2025-02-10 00:15:20 54.88 L/WK/B F L/WK RESID CC 2025-02-10 00:15:20 17.08 L/wk F KT/V RESID (F) 2025-02-10 00:15:20 0.19 Kt/V F KT/V TOTAL (F) 2025-02-10 00:15:20 1.7 Kt/V F Urea nitrogen [Mass/volume] in Urine 2025-02-10 00:14:17 175 mg/dL F Creatinine [Mass/volume] in Urine 2025-02-10 00:14:17 182.7 mg/dL F L/WK PDF CC 2025-02-09 17:31:14 31.99 L/wk F L/WK/1.73 PDF 2025-02-09 17:31:14 35.78 L/WK/B F KT/V PDF (F) 2025-02-09 17:31:14 1.5 Kt/V F Creatinine [Mass/volume] in Peritoneal dialysis fluid 2025-02-09 17:30:21 2.26 mg/dL F Urea nitrogen [Mass/volume] in Peritoneal fluid --24 hours post peritoneal dialysis 2025-02-09 17:30:21 15 mg/dL F BUN/CREAT 2025-02-09 14:29:37 4.9 Calc F 8.2-46.0 Urea nitrogen [Mass/volume] in Serum or Plasma 2025-02-09 14:28:22 33 mg/dL F 9.0-23.0 Creatinine [Mass/volume] in Serum or Plasma 2025-02-09 14:28:22 6.71 mg/dL F 0.55-1.02 BSA RYAN 2025-02-09 14:05:30 1.55 sq m F TBW RAE FEML 2025-02-09 14:05:30 28.72 Liters F Total Volume of EFFL/DIAL 2025-02-08 17:52:29 31241 mLs F BODY WEIGHT (LBS) 2025-02-08 17:52:29 132 lbs F HEIGHT IN INCHES 2025-02-08 17:52:29 59 Inches F MINIMUM GOAL: KT/V PD 2025-02-08 17:52:29 1.7 F AMPUTATE FACTOR 2025-02-08 17:52:29 0 F TOTAL VOLUME-24 HR URINE 2025-02-08 17:52:29 150 mL F COLLECTION TIME FOR URINE 2025-02-08 17:52:29 1440 min F BUN/CREAT 2025-01-10 20:22:11 6.5 Calc F 8.2-46.0 BUN/CREAT 2025-01-10 20:22:11 6.5 Calc F 8.2-46.0 BUN/CREAT 2025-01-10 20:22:11 6.5 Calc F 8.2-46.0 Urea nitrogen [Mass/volume] in Serum or Plasma 2025-01-10 20:21:16 46 mg/dL F 9.0-23.0 Creatinine [Mass/volume] in Serum or Plasma 2025-01-10 20:21:16 7.12 mg/dL F 0.55-1.02 Creatinine [Mass/volume] in Serum or Plasma 2025-01-10 20:21:16 7.12 mg/dL F 0.55-1.02 Urea nitrogen [Mass/volume] in Serum or Plasma 2025-01-10 20:21:16 46 mg/dL F 9.0-23.0 Urea nitrogen [Mass/volume] in Serum or Plasma 2025-01-10 20:21:16 46 mg/dL F 9.0-23.0 Creatinine [Mass/volume] in Serum or Plasma 2025-01-10 20:21:16 7.12 mg/dL F 0.55-1.02 BUN/CREAT 2024-12-09 16:27:53 5.9 Calc F 8.2-46.0 BUN/CREAT 2024-12-09 16:27:53 5.9 Calc F 8.2-46.0 Creatinine [Mass/volume] in Serum or Plasma 2024-12-09 16:27:13 6.81 mg/dL F 0.55-1.02 Urea nitrogen [Mass/volume] in Serum or Plasma 2024-12-09 16:27:13 40 mg/dL F 9.0-23.0 Creatinine [Mass/volume] in Serum or Plasma 2024-12-09 16:27:13 6.81 mg/dL F 0.55-1.02 Urea nitrogen [Mass/volume] in Serum or Plasma 2024-12-09 16:27:13 40 mg/dL F 9.0-23.0 L/WK/1.73 RESID 2024-11-12 17:13:01 19.95 L/WK/B F UREA CLR UR/BSA 2024-11-12 17:13:01 0.5 mL/min F 64.0-99.0 KT/V RESID (F) 2024-11-12 17:13:01 0.15 Kt/V F CRE CLR UR 2024-11-12 17:13:01 3 mL/min F 88.0-128.0 UREA CLR UR 2024-11-12 17:13:01 0.4 mL/min F L/WK RESID CC 2024-11-12 17:13:01 17.71 L/wk F CRE CLR UR/BSA 2024-11-12 17:13:01 3 mL/min F 75.0-115.0 KT/V TOTAL (F) 2024-11-12 17:13:01 2.15 Kt/V F L/WK/1.73 TOTAL 2024-11-12 17:13:01 64.61 L/WK/B F Urea Gen Rate 2024-11-12 17:13:01 4.8 GM/D F PCR PD FEMALE 2024-11-12 17:13:01 29.3 g/day F PNA (PD) 2024-11-12 17:13:01 39.7 g/day F NPNA-PD FEMALE 2024-11-12 17:13:01 0.81 G/KG/D F NPCR PD FEMALE 2024-11-12 17:13:01 0.6 G/KG/D F L/WK/1.73 RESID 2024-11-12 17:13:01 19.95 L/WK/B F Urea Gen Rate 2024-11-12 17:13:01 4.8 GM/D F PCR PD FEMALE 2024-11-12 17:13:01 29.3 g/day F KT/V TOTAL (F) 2024-11-12 17:13:01 2.15 Kt/V F UREA CLR UR 2024-11-12 17:13:01 0.4 mL/min F KT/V RESID (F) 2024-11-12 17:13:01 0.15 Kt/V F PNA (PD) 2024-11-12 17:13:01 39.7 g/day F L/WK/1.73 TOTAL 2024-11-12 17:13:01 64.61 L/WK/B F NPNA-PD FEMALE 2024-11-12 17:13:01 0.81 G/KG/D F NPCR PD FEMALE 2024-11-12 17:13:01 0.6 G/KG/D F L/WK RESID CC 2024-11-12 17:13:01 17.71 L/wk F CRE CLR UR/BSA 2024-11-12 17:13:01 3 mL/min F 75.0-115.0 UREA CLR UR/BSA 2024-11-12 17:13:01 0.5 mL/min F 64.0-99.0 CRE CLR UR 2024-11-12 17:13:01 3 mL/min F 88.0-128.0 Creatinine [Mass/volume] in Urine 2024-11-12 17:12:19 206.19 mg/dL F Urea nitrogen [Mass/volume] in Urine 2024-11-12 17:12:19 149 mg/dL F Urea nitrogen [Mass/volume] in Urine 2024-11-12 17:12:19 149 mg/dL F Creatinine [Mass/volume] in Urine 2024-11-12 17:12:19 206.19 mg/dL F BUN/CREAT 2024-11-12 17:01:54 5.3 Calc F 8.2-46.0 KT/V PDF (F) 2024-11-12 17:01:54 2 Kt/V F L/WK PDF 2024-11-12 17:01:54 39.65 L/wk F L/WK/1.73 PDF 2024-11-12 17:01:54 44.66 L/WK/B F L/WK/1.73 PDF 2024-11-12 17:01:54 44.66 L/WK/B F L/WK PDF 2024-11-12 17:01:54 39.65 L/wk F KT/V PDF (F) 2024-11-12 17:01:54 2 Kt/V F BUN/CREAT 2024-11-12 17:01:54 5.3 Calc F 8.2-46.0 Creatinine [Mass/volume] in Serum or Plasma 2024-11-12 17:01:10 6.94 mg/dL F 0.5-1.1 Urea nitrogen [Mass/volume] in Serum or Plasma 2024-11-12 17:01:10 37 mg/dL F 9.0-23.0 Creatinine [Mass/volume] in Serum or Plasma 2024-11-12 17:01:10 6.94 mg/dL F 0.5-1.1 Urea nitrogen [Mass/volume] in Serum or Plasma 2024-11-12 17:01:10 37 mg/dL F 9.0-23.0 Creatinine [Mass/volume] in Peritoneal dialysis fluid 2024-11-12 16:27:16 3.4 mg/dL F Urea nitrogen [Mass/volume] in Peritoneal fluid --24 hours post peritoneal dialysis 2024-11-12 16:27:16 26 mg/dL F Creatinine [Mass/volume] in Peritoneal dialysis fluid 2024-11-12 16:27:16 3.4 mg/dL F Urea nitrogen [Mass/volume] in Peritoneal fluid --24 hours post peritoneal dialysis 2024-11-12 16:27:16 26 mg/dL F TBW RAE FEML 2024-11-12 15:29:25 28.47 Liters F BSA RYAN 2024-11-12 15:29:25 1.54 sq m F BSA RYAN 2024-11-12 15:29:25 1.54 sq m F TBW [facility] 2024-11-12 15:29:25 28.47 Liters F AMPUTATE FACTOR 2024-11-11 19:31:00 0 F BODY WEIGHT (LBS) 2024-11-11 19:31:00 129.8 lbs F HEIGHT IN INCHES 2024-11-11 19:31:00 59 Inches F Total Volume of EFFL/DIAL 2024-11-11 19:31:00 47933 mLs F MINIMUM GOAL: KT/V PD 2024-11-11 19:31:00 1.7 F HEIGHT IN INCHES 2024-11-11 19:31:00 59 Inches F Total Volume of EFFL/DIAL 2024-11-11 19:31:00 98727 mLs F BODY WEIGHT (LBS) 2024-11-11 19:31:00 129.8 lbs F MINIMUM GOAL: KT/V PD 2024-11-11 19:31:00 1.7 F AMPUTATE FACTOR 2024-11-11 19:31:00 0 F COLLECTION TIME FOR URINE 2024-11-11 19:31:00 1440 min F TOTAL VOLUME-24 HR URINE 2024-11-11 19:31:00 150 mL F TOTAL VOLUME-24 HR URINE 2024-11-11 19:31:00 150 mL F COLLECTION TIME FOR URINE 2024-11-11 19:31:00 1440 min F BUN/CREAT 2024-10-11 14:40:17 6.6 Calc F 8.2-46.0 Creatinine [Mass/volume] in Serum or Plasma 2024-10-11 14:39:24 6.96 mg/dL F 0.5-1.1 Urea nitrogen [Mass/volume] in Serum or Plasma 2024-10-11 14:39:24 46 mg/dL F 9.0-23.0 BUN/CREAT 2024-09-23 17:57:20 6.9 Calc F 8.2-46.0 Creatinine [Mass/volume] in Serum or Plasma 2024-09-23 17:56:18 6.36 mg/dL F 0.5-1.1 Urea nitrogen [Mass/volume] in Serum or Plasma 2024-09-23 17:56:18 44 mg/dL F 9.0-23.0 L/WK/1.73 TOTAL 2024-08-31 07:04:05 69.84 L/WK/B F L/WK PDF CC 2024-08-31 07:04:05 36.98 L/wk F KT/V PDF (F) 2024-08-31 07:04:05 1.74 Kt/V F L/WK/1.73 PDF 2024-08-31 07:04:05 41.12 L/WK/B F KT/V TOTAL (F) 2024-08-31 07:04:05 2.06 Kt/V F NPNA-PD FEMALE 2024-08-31 07:04:05 0.91 G/KG/D F PNA (PD) 2024-08-31 07:04:05 45.4 g/day F Urea Gen Rate 2024-08-31 07:04:05 5.9 GM/D F PCR PD FEMALE 2024-08-31 07:04:05 34.5 g/day F NPCR PD FEMALE 2024-08-31 07:04:05 0.69 G/KG/D F Urea nitrogen [Mass/volume] in Peritoneal fluid --24 hours post peritoneal dialysis 2024-08-31 07:03:18 29 mg/dL F Creatinine [Mass/volume] in Peritoneal dialysis fluid 2024-08-31 07:03:18 2.55 mg/dL F KT/V RESID (F) 2024-08-30 18:41:27 0.32 Kt/V F L/WK RESID CC 2024-08-30 18:41:27 25.83 L/wk F UREA CLR UR 2024-08-30 18:41:27 0.9 mL/min F L/WK/1.73 RESID 2024-08-30 18:41:27 28.72 L/WK/B F UREA CLR UR/BSA 2024-08-30 18:41:27 1 mL/min F 64.0-99.0 CRE CLR UR/BSA 2024-08-30 18:41:27 5 mL/min F 75.0-115.0 CRE CLR UR 2024-08-30 18:41:27 4 mL/min F 88.0-128.0 Urea nitrogen [Mass/volume] in Urine 2024-08-30 18:40:24 206 mg/dL F Creatinine [Mass/volume] in Urine 2024-08-30 18:40:24 113.82 mg/dL F TBW RAE FEML 2024-08-30 16:33:18 28.92 Liters F BSA RYAN 2024-08-30 16:33:18 1.56 sq m F Creatinine [Mass/volume] in Serum or Plasma 2024-08-30 16:32:22 5.63 mg/dL F 0.5-1.1 Urea nitrogen [Mass/volume] in Serum or Plasma 2024-08-30 16:32:22 47 mg/dL F 9.0-23.0 BODY WEIGHT (LBS) 2024-08-29 16:02:47 133.8 lbs F AMPUTATE FACTOR 2024-08-29 16:02:47 0 F HEIGHT IN INCHES 2024-08-29 16:02:47 59 Inches F MINIMUM GOAL: KT/V PD 2024-08-29 16:02:47 1.7 F Total Volume of EFFL/DIAL 2024-08-29 16:02:47 71445 mLs F TOTAL VOLUME-24 HR URINE 2024-08-29 16:02:47 300 mL F COLLECTION TIME FOR URINE 2024-08-29 16:02:47 1440 min F L/WK PDF CC 2024-08-26 20:43:00 37.2 L/wk F KT/V TOTAL (F) 2024-08-26 20:43:00 1.83 Kt/V F L/WK/1.73 TOTAL 2024-08-26 20:43:00 52.89 L/WK/B F L/WK/1.73 RESID 2024-08-26 20:43:00 11.67 L/WK/B F KT/V PDF (F) 2024-08-26 20:43:00 1.69 Kt/V F KT/V RESID (F) 2024-08-26 20:43:00 0.14 Kt/V F L/WK/1.73 PDF 2024-08-26 20:43:00 41.21 L/WK/B F L/WK RESID CC 2024-08-26 20:43:00 10.54 L/wk F UREA CLR UR 2024-08-26 20:43:00 0.4 mL/min F UREA CLR UR/BSA 2024-08-26 20:43:00 0.5 mL/min F 64.0-99.0 CRE CLR UR/BSA 2024-08-26 20:43:00 2 mL/min F 75.0-115.0 CRE CLR UR 2024-08-26 20:43:00 2 mL/min F 88.0-128.0 Creatinine [Mass/volume] in Serum or Plasma 2024-08-26 20:42:13 6.42 mg/dL F 0.5-1.1 Urea nitrogen [Mass/volume] in Serum or Plasma 2024-08-26 20:42:13 54 mg/dL F 9.0-23.0 PCR PD FEMALE 2024-08-24 17:40:08 35.1 g/day F NPNA-PD FEMALE 2024-08-24 17:40:08 0.92 G/KG/D F NPCR PD FEMALE 2024-08-24 17:40:08 0.7 G/KG/D F PNA (PD) 2024-08-24 17:40:08 46.1 g/day F Urea Gen Rate 2024-08-24 17:40:08 6.1 GM/D F Creatinine [Mass/volume] in Urine 2024-08-24 17:39:26 103.67 mg/dL F Urea nitrogen [Mass/volume] in Urine 2024-08-24 17:39:26 212 mg/dL F BSA RYAN 2024-08-24 17:10:59 1.56 sq m F TBW RAE FEML 2024-08-24 17:10:59 29.06 Liters F Urea nitrogen [Mass/volume] in Peritoneal fluid --24 hours post peritoneal dialysis 2024-08-24 17:10:14 32 mg/dL F Creatinine [Mass/volume] in Peritoneal dialysis fluid 2024-08-24 17:10:14 2.89 mg/dL F MINIMUM GOAL: KT/V PD 2024-08-23 22:03:47 1.7 F Total Volume of EFFL/DIAL 2024-08-23 22:03:47 32528 mLs F BODY WEIGHT (LBS) 2024-08-23 22:03:47 135 lbs F HEIGHT IN INCHES 2024-08-23 22:03:47 59 Inches F AMPUTATE FACTOR 2024-08-23 22:03:47 0 F COLLECTION TIME FOR URINE 2024-08-23 22:03:47 1440 min F TOTAL VOLUME-24 HR URINE 2024-08-23 22:03:47 150 mL F KT/V TOTAL (F) 2024-08-10 23:34:32 1.64 Kt/V F UREA CLR UR 2024-08-10 23:34:32 0.6 mL/min F KT/V RESID (F) 2024-08-10 23:34:32 0.23 Kt/V F L/WK/1.73 RESID 2024-08-10 23:34:32 23.23 L/WK/B F L/WK/1.73 TOTAL 2024-08-10 23:34:32 59.73 L/WK/B F L/WK RESID CC 2024-08-10 23:34:32 20.56 L/wk F UREA CLR UR/BSA 2024-08-10 23:34:32 0.7 mL/min F 64.0-99.0 CRE CLR UR/BSA 2024-08-10 23:34:32 4 mL/min F 75.0-115.0 CRE CLR UR 2024-08-10 23:34:32 3 mL/min F 88.0-128.0 PNA (PD) 2024-08-10 23:34:32 42.9 g/day F PCR PD FEMALE 2024-08-10 23:34:32 32.1 g/day F NPNA-PD FEMALE 2024-08-10 23:34:32 0.88 G/KG/D F Urea Gen Rate 2024-08-10 23:34:32 5.4 GM/D F NPCR PD FEMALE 2024-08-10 23:34:32 0.66 G/KG/D F Urea nitrogen [Mass/volume] in Urine 2024-08-10 23:33:26 204 mg/dL F Creatinine [Mass/volume] in Urine 2024-08-10 23:33:26 136.7 mg/dL F L/WK/1.73 PDF 2024-08-10 18:26:04 36.5 L/WK/B F KT/V PDF (F) 2024-08-10 18:26:04 1.41 Kt/V F L/WK PDF 2024-08-10 18:26:04 32.3 L/wk F Creatinine [Mass/volume] in Peritoneal dialysis fluid 2024-08-10 18:25:26 3.04 mg/dL F Urea nitrogen [Mass/volume] in Peritoneal fluid --24 hours post peritoneal dialysis 2024-08-10 18:25:26 30 mg/dL F TBW RAE FEML 2024-08-10 15:31:28 28.36 Liters F BSA RYAN 2024-08-10 15:31:28 1.53 sq m F BUN/CREAT 2024-08-10 15:31:28 8 Calc F 8.2-46.0 Creatinine [Mass/volume] in Serum or Plasma 2024-08-10 15:30:22 6.91 mg/dL F 0.5-1.1 Urea nitrogen [Mass/volume] in Serum or Plasma 2024-08-10 15:30:22 55 mg/dL F 9.0-23.0 AMPUTATE FACTOR 2024-08-09 19:52:47 0 F BODY WEIGHT (LBS) 2024-08-09 19:52:47 128.8 lbs F HEIGHT IN INCHES 2024-08-09 19:52:47 59 Inches F Total Volume of EFFL/DIAL 2024-08-09 19:52:47 01935 mLs F MINIMUM GOAL: KT/V PD 2024-08-09 19:52:47 1.7 F TOTAL VOLUME-24 HR URINE 2024-08-09 19:52:47 250 mL F COLLECTION TIME FOR URINE 2024-08-09 19:52:47 1440 min F L/WK [facility] 2024-07-19 08:36:12 see comments F Unable to Calculate. KT/V PDF (F) 2024-07-19 08:36:12 see comments F Unable to Calculate. L/WK/1.73 PDF 2024-07-19 08:36:12 see comments F Unable to Calculate. L/WK/1.73 TOTAL 2024-07-19 08:36:12 see comments F Unable to Calculate. KT/V TOTAL (F) 2024-07-19 08:36:12 see comments F Unable to Calculate. Urea Gen Rate 2024-07-19 08:36:12 see comments F Unable to Calculate. PCR PD FEMALE 2024-07-19 08:36:12 see comments F Unable to Calculate. NPCR PD FEMALE 2024-07-19 08:36:12 see comments F Unable to Calculate. NPNA-PD FEMALE 2024-07-19 08:36:12 see comments F Unable to Calculate. PNA (PD) 2024-07-19 08:36:12 see comments F Unable to Calculate. Creatinine [Mass/volume] in Peritoneal dialysis fluid 2024-07-19 08:20:29 F Canceled - Specimen not received 5 days past draw date Urea nitrogen [Mass/volume] in Peritoneal fluid --24 hours post peritoneal dialysis 2024-07-19 08:20:29 F Canceled - Specimen not received 5 days past draw date L/WK RESID CC 2024-07-15 17:22:15 20.71 L/wk F KT/V RESID (F) 2024-07-15 17:22:15 0.16 Kt/V F L/WK/1.73 RESID 2024-07-15 17:22:15 22.22 L/WK/B F UREA CLR UR 2024-07-15 17:22:15 0.5 mL/min F UREA CLR UR/BSA 2024-07-15 17:22:15 0.5 mL/min F 64.0-99.0 CRE CLR UR/BSA 2024-07-15 17:22:15 4 mL/min F 75.0-115.0 CRE CLR UR 2024-07-15 17:22:15 4 mL/min F 88.0-128.0 Creatinine [Mass/volume] in Urine 2024-07-15 17:21:16 145.23 mg/dL F Urea nitrogen [Mass/volume] in Urine 2024-07-15 17:21:16 253 mg/dL F BSA RYAN 2024-07-15 16:01:16 1.61 sq m F TBW RAE FEML 2024-07-15 16:01:16 30.24 Liters F BUN/CREAT 2024-07-15 16:01:16 12.7 Calc F 8.2-46.0 Creatinine [Mass/volume] in Serum or Plasma 2024-07-15 16:00:22 5.58 mg/dL F 0.5-1.1 Urea nitrogen [Mass/volume] in Serum or Plasma 2024-07-15 16:00:22 71 mg/dL F 9.0-23.0 AMPUTATE FACTOR 2024-07-13 21:11:04 0 F BODY WEIGHT (LBS) 2024-07-13 21:11:04 145.6 lbs F HEIGHT IN INCHES 2024-07-13 21:11:04 59 Inches F MINIMUM GOAL: KT/V PD 2024-07-13 21:11:04 1.7 F Total Volume of EFFL/DIAL 2024-07-13 21:11:04 54979 mLs F COLLECTION TIME FOR URINE 2024-07-13 21:11:04 1440 min F TOTAL VOLUME-24 HR URINE 2024-07-13 21:11:04 200 mL F KT/V TOTAL (F) 2023-12-16 06:03:57 1.46 Kt/V F L/WK RESID CC 2023-12-16 06:03:57 25.98 L/wk F KT/V RESID (F) 2023-12-16 06:03:57 0.19 Kt/V F PCR PD FEMALE 2023-12-16 06:03:57 27.1 g/day F Urea Gen Rate 2023-12-16 06:03:57 4.3 GM/D F L/WK/1.73 TOTAL 2023-12-16 06:03:57 74.34 L/WK/B F NPCR PD FEMALE 2023-12-16 06:03:57 0.55 G/KG/D F L/WK/1.73 RESID 2023-12-16 06:03:57 29.09 L/WK/B F UREA CLR UR 2023-12-16 06:03:57 0.5 mL/min F PNA (PD) 2023-12-16 06:03:57 37.1 g/day F NPNA-PD FEMALE 2023-12-16 06:03:57 0.75 G/KG/D F UREA CLR UR/BSA 2023-12-16 06:03:57 0.6 mL/min F 64.0-99.0 CRE CLR UR/BSA 2023-12-16 06:03:57 5 mL/min F 75.0-115.0 CRE CLR UR 2023-12-16 06:03:57 5 mL/min F 88.0-128.0 Creatinine [Mass/volume] in Urine 2023-12-16 05:57:39 222.09 mg/dL F Urea nitrogen [Mass/volume] in Urine 2023-12-16 05:57:39 183 mg/dL F KT/V PDF (F) 2023-12-16 01:47:20 1.28 Kt/V F L/WK PDF CC 2023-12-16 01:47:20 40.41 L/wk F L/WK/1.73 PDF 2023-12-16 01:47:20 45.25 L/WK/B F Creatinine [Mass/volume] in Peritoneal dialysis fluid 2023-12-16 01:46:35 3.22 mg/dL F Urea nitrogen [Mass/volume] in Peritoneal fluid --24 hours post peritoneal dialysis 2023-12-16 01:46:35 21 mg/dL F BSA RYAN 2023-12-16 01:01:23 1.54 sq m F TBW RAE FEML 2023-12-16 01:01:23 28.67 Liters F BUN/CREAT 2023-12-16 01:01:23 7.2 Calc F 8.2-46.0 Creatinine [Mass/volume] in Serum or Plasma 2023-12-16 01:00:39 6.67 mg/dL F 0.5-1.1 Urea nitrogen [Mass/volume] in Serum or Plasma 2023-12-16 01:00:39 48 mg/dL F 9.0-23.0 Total Volume of EFFL/DIAL 2023-12-14 19:24:22 56217 mLs F HEIGHT IN INCHES 2023-12-14 19:24:22 59 Inches F AMPUTATE FACTOR 2023-12-14 19:24:22 0 F MINIMUM GOAL: KT/V PD 2023-12-14 19:24:22 1.7 F BODY WEIGHT (LBS) 2023-12-14 19:24:22 131.6 lbs F COLLECTION TIME FOR URINE 2023-12-14 19:24:22 1440 min F TOTAL VOLUME-24 HR URINE 2023-12-14 19:24:22 200 mL F BUN/CREAT 2023-11-06 14:19:17 8.1 Calc F 8.2-46.0 Creatinine [Mass/volume] in Serum or Plasma 2023-11-06 14:18:39 5.7 mg/dL F 0.5-1.1 Urea nitrogen [Mass/volume] in Serum or Plasma 2023-11-06 14:18:39 46 mg/dL F 9.0-23.0 L/WK/1.73 RESID 2023-10-09 14:54:06 36.29 L/WK/B F L/WK/1.73 PDF 2023-10-09 14:54:06 21.66 L/WK/B F L/WK/1.73 TOTAL 2023-10-09 14:54:06 57.95 L/WK/B F L/WK PDF CC 2023-10-09 14:54:06 19.12 L/wk F UREA CLR UR 2023-10-09 14:54:06 1.2 mL/min F KT/V PDF (F) 2023-10-09 14:54:06 1.06 Kt/V F L/WK RESID CC 2023-10-09 14:54:06 32.02 L/wk F KT/V RESID (F) 2023-10-09 14:54:06 0.44 Kt/V F KT/V TOTAL (F) 2023-10-09 14:54:06 1.5 Kt/V F CRE CLR UR/BSA 2023-10-09 14:54:06 6 mL/min F 75.0-115.0 UREA CLR UR/BSA 2023-10-09 14:54:06 1.4 mL/min F 64.0-99.0 BUN/CREAT 2023-10-09 14:54:06 10.6 Calc F 8.2-46.0 CRE CLR UR 2023-10-09 14:54:06 5 mL/min F 88.0-128.0 Creatinine [Mass/volume] in Serum or Plasma 2023-10-09 14:53:39 6.32 mg/dL F 0.5-1.1 Urea nitrogen [Mass/volume] in Serum or Plasma 2023-10-09 14:53:39 67 mg/dL F 9.0-23.0 PNA (PD) 2023-10-09 07:01:55 45.8 g/day F PCR PD FEMALE 2023-10-09 07:01:55 34.6 g/day F NPNA-PD FEMALE 2023-10-09 07:01:55 0.94 G/KG/D F NPCR PD FEMALE 2023-10-09 07:01:55 0.71 G/KG/D F Urea Gen Rate 2023-10-09 07:01:55 6 GM/D F Creatinine [Mass/volume] in Peritoneal dialysis fluid 2023-10-09 07:01:42 1.8 mg/dL F Urea nitrogen [Mass/volume] in Peritoneal fluid --24 hours post peritoneal dialysis 2023-10-09 07:01:42 30 mg/dL F BSA RYAN 2023-10-08 23:16:40 1.53 sq m F TBW RAE FEML 2023-10-08 23:16:40 28.27 Liters F Urea nitrogen [Mass/volume] in Urine 2023-10-08 23:15:40 295 mg/dL F Creatinine [Mass/volume] in Urine 2023-10-08 23:15:40 116.74 mg/dL F HEIGHT IN INCHES 2023-10-07 19:15:00 59 Inches F AMPUTATE FACTOR 2023-10-07 19:15:00 0 F BODY WEIGHT (LBS) 2023-10-07 19:15:00 128 lbs F MINIMUM GOAL: KT/V PD 2023-10-07 19:15:00 1.7 F Total Volume of EFFL/DIAL 2023-10-07 19:15:00 9589 mLs F TOTAL VOLUME-24 HR URINE 2023-10-07 19:15:00 400 mL F COLLECTION TIME FOR URINE 2023-10-07 19:15:00 1440 min F BUN/CREAT 2023-09-12 06:31:21 8.8 Calc F 8.2-46.0 Creatinine [Mass/volume] in Serum or Plasma 2023-09-12 06:30:59 5.69 mg/dL F 0.5-1.1 Urea nitrogen [Mass/volume] in Serum or Plasma 2023-09-12 06:30:59 50 mg/dL F 9.0-23.0 L/WK/1.73 PDF 2023-08-13 04:02:05 22.98 L/WK/B F L/WK PDF CC 2023-08-13 04:02:05 20.48 L/wk F KT/V TOTAL (F) 2023-08-13 04:02:05 1.76 Kt/V F L/WK/1.73 TOTAL 2023-08-13 04:02:05 87.69 L/WK/B F KT/V PDF (F) 2023-08-13 04:02:05 1.05 Kt/V F NPNA-PD FEMALE 2023-08-13 04:02:05 1.05 G/KG/D F NPCR PD FEMALE 2023-08-13 04:02:05 0.81 G/KG/D F Urea Gen Rate 2023-08-13 04:02:05 7.3 GM/D F PCR PD FEMALE 2023-08-13 04:02:05 40.2 g/day F PNA (PD) 2023-08-13 04:02:05 52 g/day F Creatinine [Mass/volume] in Peritoneal dialysis fluid 2023-08-13 04:01:22 1.46 mg/dL F Urea nitrogen [Mass/volume] in Peritoneal fluid --24 hours post peritoneal dialysis 2023-08-13 04:01:22 31 mg/dL F UREA CLR UR 2023-08-12 21:52:28 2 mL/min F KT/V RESID (F) 2023-08-12 21:52:28 0.71 Kt/V F L/WK RESID CC 2023-08-12 21:52:28 57.67 L/wk F L/WK/1.73 RESID 2023-08-12 21:52:28 64.71 L/WK/B F CRE CLR UR/BSA 2023-08-12 21:52:28 11 mL/min F 75.0-115.0 UREA CLR UR/BSA 2023-08-12 21:52:28 2.3 mL/min F 64.0-99.0 CRE CLR UR 2023-08-12 21:52:28 9 mL/min F 88.0-128.0 Creatinine [Mass/volume] in Urine 2023-08-12 21:52:01 79.33 mg/dL F Urea nitrogen [Mass/volume] in Urine 2023-08-12 21:52:01 248 mg/dL F TBW RAE FEML 2023-08-12 20:44:04 28.61 Liters F BSA RYAN 2023-08-12 20:44:04 1.54 sq m F BUN/CREAT 2023-08-12 20:44:04 14.5 Calc F 8.2-46.0 Urea nitrogen [Mass/volume] in Serum or Plasma 2023-08-12 20:43:14 68 mg/dL F 9.0-23.0 Creatinine [Mass/volume] in Serum or Plasma 2023-08-12 20:43:12 4.68 mg/dL F 0.5-1.1 AMPUTATE FACTOR 2023-08-11 20:04:08 0 F BODY WEIGHT (LBS) 2023-08-11 20:04:08 131 lbs F HEIGHT IN INCHES 2023-08-11 20:04:08 59 Inches F Total Volume of EFFL/DIAL 2023-08-11 20:04:08 9378 mLs F MINIMUM GOAL: KT/V PD 2023-08-11 20:04:08 1.7 F COLLECTION TIME FOR URINE 2023-08-11 20:04:08 1440 min F TOTAL VOLUME-24 HR URINE 2023-08-11 20:04:08 800 mL F BUN/CREAT 2023-07-08 23:12:52 12.4 Calc F 8.2-46.0 Creatinine [Mass/volume] in Serum or Plasma 2023-07-08 23:12:44 4.52 mg/dL F 0.5-1.1 Urea nitrogen [Mass/volume] in Serum or Plasma 2023-07-08 23:12:44 56 mg/dL F 9.0-23.0 L/WK/1.73 TOTAL 2023-06-10 00:00:55 81.14 L/WK/B F L/WK PDF CC 2023-06-10 00:00:55 21.74 L/wk F UREA CLR UR 2023-06-10 00:00:55 2.3 mL/min F L/WK/1.73 PDF 2023-06-10 00:00:55 24.59 L/WK/B F L/WK RESID CC 2023-06-10 00:00:55 50.01 L/wk F KT/V RESID (F) 2023-06-10 00:00:55 0.81 Kt/V F KT/V TOTAL (F) 2023-06-10 00:00:55 1.94 Kt/V F L/WK/1.73 RESID 2023-06-10 00:00:55 56.55 L/WK/B F KT/V PDF (F) 2023-06-10 00:00:55 1.13 Kt/V F CRE CLR UR/BSA 2023-06-10 00:00:55 9 mL/min F 75.0-115.0 UREA CLR UR/BSA 2023-06-10 00:00:55 2.6 mL/min F 64.0-99.0 BUN/CREAT 2023-06-10 00:00:55 12.6 Calc F 8.2-46.0 CRE CLR UR 2023-06-10 00:00:55 8 mL/min F 88.0-128.0 Creatinine [Mass/volume] in Serum or Plasma 2023-06-10 00:00:41 4.77 mg/dL F 0.5-1.1 Urea nitrogen [Mass/volume] in Serum or Plasma 2023-06-10 00:00:41 60 mg/dL F 9.0-23.0 Urea Gen Rate 2023-06-09 23:07:52 7 GM/D F PNA (PD) 2023-06-09 23:07:52 50.6 g/day F PCR PD FEMALE 2023-06-09 23:07:52 38.9 g/day F NPCR PD FEMALE 2023-06-09 23:07:52 0.8 G/KG/D F NPNA-PD FEMALE 2023-06-09 23:07:52 1.04 G/KG/D F Creatinine [Mass/volume] in Peritoneal dialysis fluid 2023-06-09 23:07:35 1.51 mg/dL F Urea nitrogen [Mass/volume] in Peritoneal fluid --24 hours post peritoneal dialysis 2023-06-09 23:07:35 28 mg/dL F TBW RAE FEML 2023-06-09 18:10:45 28.34 Liters F BSA RYAN 2023-06-09 18:10:45 1.53 sq m F Creatinine [Mass/volume] in Urine 2023-06-09 18:10:38 87.67 mg/dL F Urea nitrogen [Mass/volume] in Urine 2023-06-09 18:10:38 326 mg/dL F BODY WEIGHT (LBS) 2023-06-08 20:21:33 128.6 lbs F HEIGHT IN INCHES 2023-06-08 20:21:33 59 Inches F AMPUTATE FACTOR 2023-06-08 20:21:33 0 F Total Volume of EFFL/DIAL 2023-06-08 20:21:33 9813 mLs F MINIMUM GOAL: KT/V PD 2023-06-08 20:21:33 1.7 F COLLECTION TIME FOR URINE 2023-06-08 20:21:33 1440 min F TOTAL VOLUME-24 HR URINE 2023-06-08 20:21:33 600 mL F BUN/CREAT 2023-05-12 16:24:12 10.9 Calc F 8.2-46.0 Creatinine [Mass/volume] in Serum or Plasma 2023-05-12 16:23:38 4.23 mg/dL F 0.5-1.1 Urea nitrogen [Mass/volume] in Serum or Plasma 2023-05-12 16:23:38 46 mg/dL F 9.0-23.0 UREA CLR UR 2023-04-09 18:12:09 2.3 mL/min F L/WK/1.73 TOTAL 2023-04-09 18:12:09 97.42 L/WK/B F KT/V RESID (F) 2023-04-09 18:12:09 0.82 Kt/V F KT/V TOTAL (F) 2023-04-09 18:12:09 2.03 Kt/V F L/WK/1.73 RESID 2023-04-09 18:12:09 70.89 L/WK/B F L/WK RESID CC 2023-04-09 18:12:09 61.94 L/wk F UREA CLR UR/BSA 2023-04-09 18:12:09 2.6 mL/min F 64.0-99.0 CRE CLR UR/BSA 2023-04-09 18:12:09 11 mL/min F 75.0-115.0 CRE CLR UR 2023-04-09 18:12:09 10 mL/min F 88.0-128.0 NPNA-PD FEMALE 2023-04-09 18:12:09 0.9 G/KG/D F Urea Gen Rate 2023-04-09 18:12:09 5.5 GM/D F PCR PD FEMALE 2023-04-09 18:12:09 32.4 g/day F NPCR PD FEMALE 2023-04-09 18:12:09 0.67 G/KG/D F PNA (PD) 2023-04-09 18:12:09 43.4 g/day F Urea nitrogen [Mass/volume] in Urine 2023-04-09 18:11:38 301 mg/dL F Creatinine [Mass/volume] in Urine 2023-04-09 18:11:38 107.61 mg/dL F KT/V PDF (F) 2023-04-09 17:52:20 1.21 Kt/V F L/WK PDF CC 2023-04-09 17:52:20 23.17 L/wk F L/WK/1.73 PDF 2023-04-09 17:52:20 26.52 L/WK/B F BUN/CREAT 2023-04-09 17:52:20 12.3 Calc F 8.2-46.0 Creatinine [Mass/volume] in Serum or Plasma 2023-04-09 17:51:38 3.73 mg/dL F 0.5-1.1 Urea nitrogen [Mass/volume] in Serum or Plasma 2023-04-09 17:51:38 46 mg/dL F 9.0-23.0 TBW RAE FEML 2023-04-09 16:29:48 27.93 Liters F BSA RYAN 2023-04-09 16:29:48 1.51 sq m F Creatinine [Mass/volume] in Peritoneal dialysis fluid 2023-04-09 16:29:36 1.33 mg/dL F Urea nitrogen [Mass/volume] in Peritoneal fluid --24 hours post peritoneal dialysis 2023-04-09 16:29:36 24 mg/dL F HEIGHT IN INCHES 2023-04-08 19:17:06 59 Inches F AMPUTATE FACTOR 2023-04-08 19:17:06 0 F BODY WEIGHT (LBS) 2023-04-08 19:17:06 125 lbs F Total Volume of EFFL/DIAL 2023-04-08 19:17:06 9284 mLs F MINIMUM GOAL: KT/V PD 2023-04-08 19:17:06 1.7 F COLLECTION TIME FOR URINE 2023-04-08 19:17:06 1440 min F TOTAL VOLUME-24 HR URINE 2023-04-08 19:17:06 500 mL F BUN/CREAT 2023-03-12 01:48:04 11.6 Calc F 8.2-46.0 Creatinine [Mass/volume] in Serum or Plasma 2023-03-12 01:47:36 3.45 mg/dL F 0.5-1.1 Urea nitrogen [Mass/volume] in Serum or Plasma 2023-03-12 01:47:36 40 mg/dL F 9.0-23.0 BUN/CREAT 2023-02-06 14:46:15 9.6 Calc F 8.2-46.0 Creatinine [Mass/volume] in Serum or Plasma 2023-02-06 14:45:27 4.68 mg/dL F 0.5-1.1 Urea nitrogen [Mass/volume] in Serum or Plasma 2023-02-06 14:45:27 45 mg/dL F 9.0-23.0 BUN/CREAT 2022-12-23 16:01:20 12.3 Calc F 8.2-46.0 Creatinine [Mass/volume] in Serum or Plasma 2022-12-23 16:01:14 5.87 mg/dL F 0.5-1.1 Urea nitrogen [Mass/volume] in Serum or Plasma 2022-12-23 16:01:14 72 mg/dL F 9.0-23.0 Std Renal KT/V 2022-10-17 00:59:03 N/A F DIALYZER FLOW-QD 2022-10-17 00:59:03 480 mL/min F eKt/V 2022-10-17 00:59:03 1.97 F nPCR 2022-10-17 00:59:03 1.63 G/KG/D F spKt/V 2022-10-17 00:59:03 2.39 F LENGTH OF DIALYSIS 2022-10-17 00:59:03 195 min F PRESCRIBED DAYS/WEEK 2022-10-17 00:59:03 3 Day/Wk F WEIGHT - POST DAY 1 2022-10-17 00:59:03 55.5 kg F TBW (Rae) 2022-10-17 00:59:03 27.61 Liters F stdKt/V (DIAL) 2022-10-17 00:59:03 N/A F VT (KT/V TX VOL) 2022-10-17 00:59:03 21.7 L F PATIENT AGE 2022-10-17 00:59:03 77 Years F TOTAL HOURS/WEEK DIALYSIS 2022-10-17 00:59:03 8 F KT/V PRESCRIBED 2022-10-17 00:59:03 2.28 F Residual kt/v 2022-10-17 00:59:03 F Total Kt/V 2022-10-17 00:59:03 2.39 F VM (KT/V MEAN VOL) 2022-10-17 00:59:03 23.6 F WEIGHT - PRE DAY 1 2022-10-17 00:59:03 57.8 kg F HEIGHT IN INCHES 2022-10-17 00:59:03 59 Inches F BLOOD FLOW-QWB 2022-10-17 00:59:03 400 F stdKT/V Total 2022-10-17 00:59:03 N/A F AMPUTATE FACTOR 2022-10-17 00:59:03 0 F Dialyzer PIETER 2022-10-17 00:59:03 1218 Calc F WEIGHT (KG) 2022-10-17 00:59:03 55.5 kg F URR% 2022-10-17 00:59:03 86 % F CURRENT KRU 2022-10-17 00:59:03 F BSA RYAN 2022-10-17 00:59:03 1.5 sq m F Urea nitrogen [Mass/volume] in Serum or Plasma --post dialysis 2022-10-17 00:57:14 10 mg/dL F 9.0-23.0 Creatinine [Mass/volume] in Serum or Plasma 2022-10-16 16:53:16 4.99 mg/dL F 0.5-1.1 Urea nitrogen [Mass/volume] in Serum or Plasma 2022-10-16 16:53:16 71 mg/dL F 9.0-23.0 URR% 2022-06-20 20:25:17 85 % F DIALYZER FLOW-QD 2022-06-20 20:25:17 500 mL/min F TOTAL HOURS/WEEK DIALYSIS 2022-06-20 20:25:17 6 F PRESCRIBED DAYS/WEEK 2022-06-20 20:25:17 3 Day/Wk F stdKT/V Total 2022-06-20 20:25:17 N/A F PATIENT AGE 2022-06-20 20:25:17 76 Years F stdKt/V (DIAL) 2022-06-20 20:25:17 N/A F WEIGHT (KG) 2022-06-20 20:25:17 54.5 kg F LENGTH OF DIALYSIS 2022-06-20 20:25:17 213 min F AMPUTATE FACTOR 2022-06-20 20:25:17 0 F WEIGHT - PRE DAY 1 2022-06-20 20:25:17 56.1 kg F Total Kt/V 2022-06-20 20:25:17 2.27 F spKt/V 2022-06-20 20:25:17 2.27 F KT/V PRESCRIBED 2022-06-20 20:25:17 2.51 F nPCR 2022-06-20 20:25:17 1.02 G/KG/D F Dialyzer PIETER 2022-06-20 20:25:17 1218 Calc F WEIGHT - POST DAY 1 2022-06-20 20:25:17 53.3 kg F BLOOD FLOW-QWB 2022-06-20 20:25:17 400 F HEIGHT IN INCHES 2022-06-20 20:25:17 59 Inches F Residual kt/v 2022-06-20 20:25:17 F VT (KT/V TX VOL) 2022-06-20 20:25:17 25.2 L F eKt/V 2022-06-20 20:25:17 1.9 F BSA RYAN 2022-06-20 20:25:17 1.48 sq m F Std Renal KT/V 2022-06-20 20:25:17 N/A F VM (KT/V MEAN VOL) 2022-06-20 20:25:17 25.2 F TBW (Rae) 2022-06-20 20:25:17 27.07 Liters F CURRENT KRU 2022-06-20 20:25:17 F Creatinine [Mass/volume] in Serum or Plasma 2022-06-20 20:22:44 4.36 mg/dL F 0.5-1.1 Urea nitrogen [Mass/volume] in Serum or Plasma 2022-06-20 20:22:44 60 mg/dL F 9.0-23.0 Urea nitrogen [Mass/volume] in Serum or Plasma --post dialysis 2022-06-20 19:27:46 9 mg/dL F 9.0-23.0 Anemia Description Draw Date Result/Unit Status Ref Range Result Comments IRON SATURATION 2025-03-13 21:09:36 30 % F 16.0-46.0 TIBC 2025-03-13 21:09:36 183 ug/dL F 250.0-425.0 Iron [Mass/volume] in Serum or Plasma 2025-03-13 20:50:06 54 ug/dL F 50.0-170.0 Iron binding capacity.unsaturated [Mass/volume] in Serum or Plasma 2025-03-13 20:50:06 129 ug/dL F 80.0-375.0 Ferritin [Mass/volume] in Serum or Plasma 2025-03-12 00:19:16 1223 ng/mL F 7.0-271.0 HCT CALC HGBX3 2025-03-11 22:08:50 31.8 % F 37.0-47.0 Hematocrit [Volume Fraction] of Blood by Automated count 2025-03-11 22:07:17 33.1 % F 37.0-47.0 MCV [Entitic volume] by Automated count 2025-03-11 22:07:17 94.4 fL F 80.0-100.0 Hemoglobin [Mass/volume] in Blood 2025-03-11 22:07:17 10.6 g/dL F 12.0-16.0 MCH [Entitic mass] by Automated count 2025-03-11 22:07:17 30.2 pg F 25.9-34.2 Erythrocyte distribution width [Ratio] by Automated count 2025-03-11 22:07:15 15.9 % F 11.0-15.0 Erythrocytes [#/volume] in Blood by Automated count 2025-03-11 22:07:15 3.5 x 10^6 cells/uL F 3.85-5.2 Platelets [#/volume] in Blood by Automated count 2025-03-11 22:07:15 254 x 10^3 cells/uL F 140.0-450.0 MCHC [Mass/volume] by Automated count 2025-03-11 22:07:15 31.9 g/dL F 29.6-35.3 Reticulocytes/100 erythrocytes in Blood by Automated count 2025-03-11 22:07:15 1.33 % F 0.7-2.5 Ferritin [Mass/volume] in Serum or Plasma 2025-02-09 17:02:26 1416 ng/mL F 10.0-291.0 IRON SATURATION 2025-02-09 16:50:06 37 % F 16.0-46.0 TIBC 2025-02-09 16:50:06 186 ug/dL F 250.0-425.0 Iron [Mass/volume] in Serum or Plasma 2025-02-09 16:45:27 68 ug/dL F 50.0-170.0 Iron binding capacity.unsaturated [Mass/volume] in Serum or Plasma 2025-02-09 16:45:27 118 ug/dL F 80.0-375.0 HCT CALC HGBX3 2025-02-09 14:50:28 33 % F 37.0-47.0 Erythrocyte distribution width [Ratio] by Automated count 2025-02-09 14:49:22 15.5 % F 11.0-15.0 Erythrocytes [#/volume] in Blood by Automated count 2025-02-09 14:49:22 3.6 x 10^6 cells/uL F 3.85-5.2 Hemoglobin [Mass/volume] in Blood 2025-02-09 14:49:22 11 g/dL F 12.0-16.0 Hematocrit [Volume Fraction] of Blood by Automated count 2025-02-09 14:49:22 34.7 % F 37.0-47.0 MCV [Entitic volume] by Automated count 2025-02-09 14:49:22 96.4 fL F 80.0-100.0 MCHC [Mass/volume] by Automated count 2025-02-09 14:49:22 31.8 g/dL F 29.6-35.3 MCH [Entitic mass] by Automated count 2025-02-09 14:49:22 30.6 pg F 25.9-34.2 Platelets [#/volume] in Blood by Automated count 2025-02-09 14:49:22 268 x 10^3 cells/uL F 140.0-450.0 Reticulocytes/100 erythrocytes in Blood by Automated count 2025-02-09 14:49:22 1.8 % F 0.7-2.5 TIBC 2025-01-11 07:15:19 203 ug/dL F 250.0-425.0 IRON SATURATION 2025-01-11 07:15:19 31 % F 16.0-46.0 IRON SATURATION 2025-01-11 07:15:19 31 % F 16.0-46.0 TIBC 2025-01-11 07:15:19 203 ug/dL F 250.0-425.0 IRON SATURATION 2025-01-11 07:15:19 31 % F 16.0-46.0 TIBC 2025-01-11 07:15:19 203 ug/dL F 250.0-425.0 Iron [Mass/volume] in Serum or Plasma 2025-01-11 07:09:08 63 ug/dL F 50.0-170.0 Iron binding capacity.unsaturated [Mass/volume] in Serum or Plasma 2025-01-11 07:09:08 140 ug/dL F 80.0-375.0 Iron binding capacity.unsaturated [Mass/volume] in Serum or Plasma 2025-01-11 07:09:08 140 ug/dL F 80.0-375.0 Iron [Mass/volume] in Serum or Plasma 2025-01-11 07:09:08 63 ug/dL F 50.0-170.0 Iron [Mass/volume] in Serum or Plasma 2025-01-11 07:09:08 63 ug/dL F 50.0-170.0 Iron binding capacity.unsaturated [Mass/volume] in Serum or Plasma 2025-01-11 07:09:08 140 ug/dL F 80.0-375.0 Ferritin [Mass/volume] in Serum or Plasma 2025-01-10 21:15:20 1237 ng/mL F 10.0-291.0 Ferritin [Mass/volume] in Serum or Plasma 2025-01-10 21:15:20 1237 ng/mL F 10.0-291.0 Ferritin [Mass/volume] in Serum or Plasma 2025-01-10 21:15:20 1237 ng/mL F 10.0-291.0 HCT CALC HGBX3 2025-01-10 20:48:32 28.8 % F 37.0-47.0 HCT CALC HGBX3 2025-01-10 20:48:32 28.8 % F 37.0-47.0 HCT CALC HGBX3 2025-01-10 20:48:32 28.8 % F 37.0-47.0 Reticulocytes/100 erythrocytes in Blood by Automated count 2025-01-10 20:47:17 1.65 % F 0.7-2.5 Hemoglobin [Mass/volume] in Blood 2025-01-10 20:47:17 9.6 g/dL F 12.0-16.0 MCHC [Mass/volume] by Automated count 2025-01-10 20:47:17 32.2 g/dL F 29.6-35.3 MCV [Entitic volume] by Automated count 2025-01-10 20:47:17 97.9 fL F 80.0-100.0 Platelets [#/volume] in Blood by Automated count 2025-01-10 20:47:17 241 x 10^3 cells/uL F 140.0-450.0 Erythrocyte distribution width [Ratio] by Automated count 2025-01-10 20:47:17 15.5 % F 11.0-15.0 Erythrocytes [#/volume] in Blood by Automated count 2025-01-10 20:47:17 3.05 x 10^6 cells/uL F 3.85-5.2 Hematocrit [Volume Fraction] of Blood by Automated count 2025-01-10 20:47:17 29.9 % F 37.0-47.0 MCH [Entitic mass] by Automated count 2025-01-10 20:47:17 31.5 pg F 25.9-34.2 Reticulocytes/100 erythrocytes in Blood by Automated count 2025-01-10 20:47:17 1.65 % F 0.7-2.5 Hemoglobin [Mass/volume] in Blood 2025-01-10 20:47:17 9.6 g/dL F 12.0-16.0 Platelets [#/volume] in Blood by Automated count 2025-01-10 20:47:17 241 x 10^3 cells/uL F 140.0-450.0 MCH [Entitic mass] by Automated count 2025-01-10 20:47:17 31.5 pg F 25.9-34.2 MCHC [Mass/volume] by Automated count 2025-01-10 20:47:17 32.2 g/dL F 29.6-35.3 Erythrocytes [#/volume] in Blood by Automated count 2025-01-10 20:47:17 3.05 x 10^6 cells/uL F 3.85-5.2 Hematocrit [Volume Fraction] of Blood by Automated count 2025-01-10 20:47:17 29.9 % F 37.0-47.0 MCV [Entitic volume] by Automated count 2025-01-10 20:47:17 97.9 fL F 80.0-100.0 Erythrocyte distribution width [Ratio] by Automated count 2025-01-10 20:47:17 15.5 % F 11.0-15.0 Erythrocyte distribution width [Ratio] by Automated count 2025-01-10 20:47:17 15.5 % F 11.0-15.0 Erythrocytes [#/volume] in Blood by Automated count 2025-01-10 20:47:17 3.05 x 10^6 cells/uL F 3.85-5.2 Hemoglobin [Mass/volume] in Blood 2025-01-10 20:47:17 9.6 g/dL F 12.0-16.0 Hematocrit [Volume Fraction] of Blood by Automated count 2025-01-10 20:47:17 29.9 % F 37.0-47.0 MCV [Entitic volume] by Automated count 2025-01-10 20:47:17 97.9 fL F 80.0-100.0 MCH [Entitic mass] by Automated count 2025-01-10 20:47:17 31.5 pg F 25.9-34.2 MCHC [Mass/volume] by Automated count 2025-01-10 20:47:17 32.2 g/dL F 29.6-35.3 Platelets [#/volume] in Blood by Automated count 2025-01-10 20:47:17 241 x 10^3 cells/uL F 140.0-450.0 Reticulocytes/100 erythrocytes in Blood by Automated count 2025-01-10 20:47:17 1.65 % F 0.7-2.5 IRON SATURATION 2024-12-10 07:24:50 25 % F 16.0-46.0 TIBC 2024-12-10 07:24:50 185 ug/dL F 250.0-425.0 TIBC 2024-12-10 07:24:50 185 ug/dL F 250.0-425.0 IRON SATURATION 2024-12-10 07:24:50 25 % F 16.0-46.0 Iron [Mass/volume] in Serum or Plasma 2024-12-10 07:07:46 46 ug/dL F 50.0-170.0 Iron binding capacity.unsaturated [Mass/volume] in Serum or Plasma 2024-12-10 07:07:46 139 ug/dL F 80.0-375.0 Iron [Mass/volume] in Serum or Plasma 2024-12-10 07:07:46 46 ug/dL F 50.0-170.0 Iron binding capacity.unsaturated [Mass/volume] in Serum or Plasma 2024-12-10 07:07:46 139 ug/dL F 80.0-375.0 HCT CALC HGBX3 2024-12-10 01:29:50 28.8 % F 37.0-47.0 HCT CALC HGBX3 2024-12-10 01:29:50 28.8 % F 37.0-47.0 Reticulocytes/100 erythrocytes in Blood by Automated count 2024-12-10 01:29:16 F RECOLLECT - OUTDATED SPECIMEN,RECOLLE CT - OUTDATED SPECIMEN Reticulocytes/100 erythrocytes in Blood by Automated count 2024-12-10 01:29:16 F RECOLLECT - OUTDATED SPECIMEN Erythrocyte distribution width [Ratio] by Automated count 2024-12-10 01:28:15 15.7 % F 11.0-15.0 Hemoglobin [Mass/volume] in Blood 2024-12-10 01:28:15 9.6 g/dL F 12.0-16.0 Platelets [#/volume] in Blood by Automated count 2024-12-10 01:28:15 246 x 10^3 cells/uL F 140.0-450.0 MCH [Entitic mass] by Automated count 2024-12-10 01:28:15 30.7 pg F 25.9-34.2 MCHC [Mass/volume] by Automated count 2024-12-10 01:28:15 29.9 g/dL F 29.6-35.3 Erythrocytes [#/volume] in Blood by Automated count 2024-12-10 01:28:15 3.11 x 10^6 cells/uL F 3.85-5.2 Hematocrit [Volume Fraction] of Blood by Automated count 2024-12-10 01:28:15 32 % F 37.0-47.0 MCV [Entitic volume] by Automated count 2024-12-10 01:28:15 102.9 fL F 80.0-100.0 Hemoglobin [Mass/volume] in Blood 2024-12-10 01:28:15 9.6 g/dL F 12.0-16.0 MCHC [Mass/volume] by Automated count 2024-12-10 01:28:15 29.9 g/dL F 29.6-35.3 MCV [Entitic volume] by Automated count 2024-12-10 01:28:15 102.9 fL F 80.0-100.0 Erythrocyte distribution width [Ratio] by Automated count 2024-12-10 01:28:15 15.7 % F 11.0-15.0 Platelets [#/volume] in Blood by Automated count 2024-12-10 01:28:15 246 x 10^3 cells/uL F 140.0-450.0 MCH [Entitic mass] by Automated count 2024-12-10 01:28:15 30.7 pg F 25.9-34.2 Erythrocytes [#/volume] in Blood by Automated count 2024-12-10 01:28:15 3.11 x 10^6 cells/uL F 3.85-5.2 Hematocrit [Volume Fraction] of Blood by Automated count 2024-12-10 01:28:15 32 % F 37.0-47.0 Ferritin [Mass/volume] in Serum or Plasma 2024-12-09 22:31:23 1255 ng/mL F 10.0-291.0 Ferritin [Mass/volume] in Serum or Plasma 2024-12-09 22:31:23 1255 ng/mL F 10.0-291.0 HCT CALC HGBX3 2024-11-12 22:00:20 31.5 % F 37.0-47.0 HCT CALC HGBX3 2024-11-12 22:00:20 31.5 % F 37.0-47.0 Platelets [#/volume] in Blood by Automated count 2024-11-12 21:59:19 268 x 10^3 cells/uL F 140.0-450.0 Hemoglobin [Mass/volume] in Blood 2024-11-12 21:59:19 10.5 g/dL F 12.0-16.0 MCHC [Mass/volume] by Automated count 2024-11-12 21:59:19 30.9 g/dL F 29.6-35.3 Erythrocytes [#/volume] in Blood by Automated count 2024-11-12 21:59:19 3.3 x 10^6 cells/uL F 3.85-5.2 MCV [Entitic volume] by Automated count 2024-11-12 21:59:19 102.7 fL F 80.0-100.0 Reticulocytes/100 erythrocytes in Blood by Automated count 2024-11-12 21:59:19 1.96 % F 0.7-2.5 Hematocrit [Volume Fraction] of Blood by Automated count 2024-11-12 21:59:19 33.8 % F 37.0-47.0 MCH [Entitic mass] by Automated count 2024-11-12 21:59:19 31.7 pg F 25.9-34.2 Erythrocyte distribution width [Ratio] by Automated count 2024-11-12 21:59:19 14.8 % F 11.0-15.0 Reticulocytes/100 erythrocytes in Blood by Automated count 2024-11-12 21:59:19 1.96 % F 0.7-2.5 Erythrocyte distribution width [Ratio] by Automated count 2024-11-12 21:59:19 14.8 % F 11.0-15.0 Platelets [#/volume] in Blood by Automated count 2024-11-12 21:59:19 268 x 10^3 cells/uL F 140.0-450.0 Hemoglobin [Mass/volume] in Blood 2024-11-12 21:59:19 10.5 g/dL F 12.0-16.0 MCH [Entitic mass] by Automated count 2024-11-12 21:59:19 31.7 pg F 25.9-34.2 MCHC [Mass/volume] by Automated count 2024-11-12 21:59:19 30.9 g/dL F 29.6-35.3 Hematocrit [Volume Fraction] of Blood by Automated count 2024-11-12 21:59:19 33.8 % F 37.0-47.0 Erythrocytes [#/volume] in Blood by Automated count 2024-11-12 21:59:19 3.3 x 10^6 cells/uL F 3.85-5.2 MCV [Entitic volume] by Automated count 2024-11-12 21:59:19 102.7 fL F 80.0-100.0 TIBC 2024-11-12 18:27:48 198 ug/dL F 250.0-425.0 IRON SATURATION 2024-11-12 18:27:48 38 % F 16.0-46.0 IRON SATURATION 2024-11-12 18:27:48 38 % F 16.0-46.0 TIBC 2024-11-12 18:27:48 198 ug/dL F 250.0-425.0 Iron [Mass/volume] in Serum or Plasma 2024-11-12 18:24:03 75 ug/dL F 50.0-170.0 Iron binding capacity.unsaturated [Mass/volume] in Serum or Plasma 2024-11-12 18:24:03 123 ug/dL F 80.0-375.0 Iron [Mass/volume] in Serum or Plasma 2024-11-12 18:24:03 75 ug/dL F 50.0-170.0 Iron binding capacity.unsaturated [Mass/volume] in Serum or Plasma 2024-11-12 18:24:03 123 ug/dL F 80.0-375.0 IRON SATURATION 2024-10-12 08:19:22 25 % F 16.0-46.0 TIBC 2024-10-12 08:19:22 220 ug/dL F 250.0-425.0 Iron [Mass/volume] in Serum or Plasma 2024-10-12 07:36:28 55 ug/dL F 50.0-170.0 Iron binding capacity.unsaturated [Mass/volume] in Serum or Plasma 2024-10-12 07:36:15 165 ug/dL F 80.0-375.0 HCT CALC HGBX3 2024-10-11 23:38:25 29.7 % F 37.0-47.0 Reticulocytes/100 erythrocytes in Blood by Automated count 2024-10-11 23:37:23 2.79 % F 0.7-2.5 Hemoglobin [Mass/volume] in Blood 2024-10-11 23:37:23 9.9 g/dL F 12.0-16.0 Erythrocyte distribution width [Ratio] by Automated count 2024-10-11 23:37:23 17.1 % F 11.0-15.0 Platelets [#/volume] in Blood by Automated count 2024-10-11 23:37:23 278 x 10^3 cells/uL F 140.0-450.0 MCH [Entitic mass] by Automated count 2024-10-11 23:37:23 31.1 pg F 25.9-34.2 MCHC [Mass/volume] by Automated count 2024-10-11 23:37:23 30.9 g/dL F 29.6-35.3 Erythrocytes [#/volume] in Blood by Automated count 2024-10-11 23:37:23 3.19 x 10^6 cells/uL F 3.85-5.2 Hematocrit [Volume Fraction] of Blood by Automated count 2024-10-11 23:37:23 32.1 % F 37.0-47.0 MCV [Entitic volume] by Automated count 2024-10-11 23:37:23 100.4 fL F 80.0-100.0 Ferritin [Mass/volume] in Serum or Plasma 2024-10-11 21:14:43 1278 ng/mL F 10.0-291.0 HCT CALC HGBX3 2024-09-23 15:36:55 25.8 % F 37.0-47.0 Hemoglobin [Mass/volume] in Blood 2024-09-23 15:36:06 8.6 g/dL F 12.0-16.0 Hematocrit [Volume Fraction] of Blood by Automated count 2024-09-23 15:36:06 26.8 % F 37.0-47.0 IRON SATURATION 2024-09-14 09:42:36 35 % F 16.0-46.0 TIBC 2024-09-14 09:42:36 186 ug/dL F 250.0-425.0 Iron [Mass/volume] in Serum or Plasma 2024-09-14 07:36:42 66 ug/dL F 50.0-170.0 Iron binding capacity.unsaturated [Mass/volume] in Serum or Plasma 2024-09-14 07:36:42 120 ug/dL F 80.0-375.0 Ferritin [Mass/volume] in Serum or Plasma 2024-09-14 06:54:20 1194 ng/mL F 10.0-291.0 HCT CALC HGBX3 2024-09-13 18:11:18 27 % F 37.0-47.0 Reticulocytes/100 erythrocytes in Blood by Automated count 2024-09-13 18:10:11 1.34 % F 0.7-2.5 Erythrocyte distribution width [Ratio] by Automated count 2024-09-13 18:10:11 19.6 % F 11.0-15.0 Platelets [#/volume] in Blood by Automated count 2024-09-13 18:10:11 214 x 10^3 cells/uL F 140.0-450.0 Hemoglobin [Mass/volume] in Blood 2024-09-13 18:10:11 9 g/dL F 12.0-16.0 MCH [Entitic mass] by Automated count 2024-09-13 18:10:11 28.5 pg F 25.9-34.2 MCHC [Mass/volume] by Automated count 2024-09-13 18:10:11 30.9 g/dL F 29.6-35.3 Erythrocytes [#/volume] in Blood by Automated count 2024-09-13 18:10:11 3.16 x 10^6 cells/uL F 3.85-5.2 Hematocrit [Volume Fraction] of Blood by Automated count 2024-09-13 18:10:11 29.1 % F 37.0-47.0 MCV [Entitic volume] by Automated count 2024-09-13 18:10:11 92 fL F 80.0-100.0 IRON SATURATION 2024-08-11 07:56:41 44 % F 16.0-46.0 TIBC 2024-08-11 07:56:41 200 ug/dL F 250.0-425.0 Ferritin [Mass/volume] in Serum or Plasma 2024-08-11 06:51:29 1014 ng/mL F 10.0-291.0 Iron [Mass/volume] in Serum or Plasma 2024-08-11 06:34:28 88 ug/dL F 50.0-170.0 Iron binding capacity.unsaturated [Mass/volume] in Serum or Plasma 2024-08-11 06:34:28 112 ug/dL F 80.0-375.0 HCT CALC HGBX3 2024-08-10 15:39:20 36.3 % F 37.0-47.0 Reticulocytes/100 erythrocytes in Blood by Automated count 2024-08-10 15:38:20 1.4 % F 0.7-2.5 Hemoglobin [Mass/volume] in Blood 2024-08-10 15:38:20 12.1 g/dL F 12.0-16.0 Hematocrit [Volume Fraction] of Blood by Automated count 2024-08-10 15:38:20 39.6 % F 37.0-47.0 Erythrocyte distribution width [Ratio] by Automated count 2024-08-10 15:38:18 18.8 % F 11.0-15.0 Platelets [#/volume] in Blood by Automated count 2024-08-10 15:38:18 224 x 10^3 cells/uL F 140.0-450.0 MCH [Entitic mass] by Automated count 2024-08-10 15:38:18 28.4 pg F 25.9-34.2 MCHC [Mass/volume] by Automated count 2024-08-10 15:38:18 30.5 g/dL F 29.6-35.3 Erythrocytes [#/volume] in Blood by Automated count 2024-08-10 15:38:18 4.26 x 10^6 cells/uL F 3.85-5.2 MCV [Entitic volume] by Automated count 2024-08-10 15:38:18 93.1 fL F 80.0-100.0 Ferritin [Mass/volume] in Serum or Plasma 2024-07-16 08:03:51 1243 ng/mL F 10.0-291.0 IRON SATURATION 2024-07-15 21:58:36 53 % F 16.0-46.0 TIBC 2024-07-15 21:58:36 190 ug/dL F 250.0-425.0 Iron [Mass/volume] in Serum or Plasma 2024-07-15 20:53:05 101 ug/dL F 50.0-170.0 Iron binding capacity.unsaturated [Mass/volume] in Serum or Plasma 2024-07-15 20:53:05 89 ug/dL F 80.0-375.0 HCT CALC HGBX3 2024-07-15 17:00:14 31.8 % F 37.0-47.0 Erythrocyte distribution width [Ratio] by Automated count 2024-07-15 16:59:14 17.9 % F 11.0-15.0 Platelets [#/volume] in Blood by Automated count 2024-07-15 16:59:14 247 x 10^3 cells/uL F 140.0-450.0 Hemoglobin [Mass/volume] in Blood 2024-07-15 16:59:14 10.6 g/dL F 12.0-16.0 MCH [Entitic mass] by Automated count 2024-07-15 16:59:14 28.7 pg F 25.9-34.2 MCHC [Mass/volume] by Automated count 2024-07-15 16:59:14 31.4 g/dL F 29.6-35.3 Erythrocytes [#/volume] in Blood by Automated count 2024-07-15 16:59:14 3.71 x 10^6 cells/uL F 3.85-5.2 Hematocrit [Volume Fraction] of Blood by Automated count 2024-07-15 16:59:14 33.9 % F 37.0-47.0 MCV [Entitic volume] by Automated count 2024-07-15 16:59:14 91.3 fL F 80.0-100.0 HCT CALC HGBX3 2023-12-17 03:01:54 23.1 % F 37.0-47.0 Erythrocyte distribution width [Ratio] by Automated count 2023-12-17 03:00:55 15.9 % F 11.0-15.0 Hemoglobin [Mass/volume] in Blood 2023-12-17 03:00:55 7.7 g/dL F 12.0-16.0 Platelets [#/volume] in Blood by Automated count 2023-12-17 03:00:55 243 x 10^3 cells/uL F 140.0-450.0 MCH [Entitic mass] by Automated count 2023-12-17 03:00:55 30.8 pg F 25.9-34.2 MCHC [Mass/volume] by Automated count 2023-12-17 03:00:55 30 g/dL F 29.6-35.3 Erythrocytes [#/volume] in Blood by Automated count 2023-12-17 03:00:55 2.5 x 10'6 cells/uL F 3.85-5.2 Hematocrit [Volume Fraction] of Blood by Automated count 2023-12-17 03:00:55 25.7 % F 37.0-47.0 MCV [Entitic volume] by Automated count 2023-12-17 03:00:55 102.8 fL F 80.0-100.0 IRON SATURATION 2023-12-16 07:16:27 22 % F 16.0-46.0 TIBC 2023-12-16 07:16:27 179 ug/dL F 250.0-425.0 Iron [Mass/volume] in Serum or Plasma 2023-12-16 06:54:01 40 ug/dL F 50.0-170.0 Iron binding capacity.unsaturated [Mass/volume] in Serum or Plasma 2023-12-16 06:54:01 139 ug/dL F 80.0-375.0 Ferritin [Mass/volume] in Serum or Plasma 2023-12-16 06:12:04 1383 ng/mL F 10.0-291.0 Ferritin [Mass/volume] in Serum or Plasma 2023-11-07 04:11:34 1267 ng/mL F 10.0-291.0 HCT CALC HGBX3 2023-11-06 22:50:51 26.7 % F 37.0-47.0 Platelets [#/volume] in Blood by Automated count 2023-11-06 22:50:37 240 x 10^3 cells/uL F 140.0-450.0 MCH [Entitic mass] by Automated count 2023-11-06 22:50:37 32.7 pg F 25.9-34.2 MCHC [Mass/volume] by Automated count 2023-11-06 22:50:37 32.7 g/dL F 29.6-35.3 Hemoglobin [Mass/volume] in Blood 2023-11-06 22:50:35 8.9 g/dL F 12.0-16.0 Erythrocyte distribution width [Ratio] by Automated count 2023-11-06 22:50:35 14.7 % F 11.0-15.0 Erythrocytes [#/volume] in Blood by Automated count 2023-11-06 22:50:35 2.72 x 10'6 cells/uL F 3.85-5.2 Hematocrit [Volume Fraction] of Blood by Automated count 2023-11-06 22:50:35 27.1 % F 37.0-47.0 MCV [Entitic volume] by Automated count 2023-11-06 22:50:35 99.9 fL F 80.0-100.0 IRON SATURATION 2023-11-06 16:24:22 30 % F 16.0-46.0 TIBC 2023-11-06 16:24:22 194 ug/dL F 250.0-425.0 Iron [Mass/volume] in Serum or Plasma 2023-11-06 16:23:06 58 ug/dL F 50.0-170.0 Iron binding capacity.unsaturated [Mass/volume] in Serum or Plasma 2023-11-06 16:23:06 136 ug/dL F 80.0-375.0 IRON SATURATION 2023-10-09 16:18:25 39 % F 16.0-46.0 TIBC 2023-10-09 16:18:25 217 ug/dL F 250.0-425.0 Iron [Mass/volume] in Serum or Plasma 2023-10-09 16:18:06 84 ug/dL F 50.0-170.0 Iron binding capacity.unsaturated [Mass/volume] in Serum or Plasma 2023-10-09 16:18:06 133 ug/dL F 80.0-375.0 Ferritin [Mass/volume] in Serum or Plasma 2023-10-09 06:51:25 1278 ng/mL F 10.0-291.0 HCT CALC HGBX3 2023-10-08 23:37:35 27.3 % F 37.0-47.0 Erythrocyte distribution width [Ratio] by Automated count 2023-10-08 23:36:45 15.7 % F 11.0-15.0 Hemoglobin [Mass/volume] in Blood 2023-10-08 23:36:45 9.1 g/dL F 12.0-16.0 Platelets [#/volume] in Blood by Automated count 2023-10-08 23:36:45 248 x 10^3 cells/uL F 140.0-450.0 MCH [Entitic mass] by Automated count 2023-10-08 23:36:45 31.6 pg F 25.9-34.2 Erythrocytes [#/volume] in Blood by Automated count 2023-10-08 23:36:45 2.89 x 10'6 cells/uL F 3.85-5.2 Hematocrit [Volume Fraction] of Blood by Automated count 2023-10-08 23:36:45 29.5 % F 37.0-47.0 MCHC [Mass/volume] by Automated count 2023-10-08 23:36:45 31 g/dL F 29.6-35.3 MCV [Entitic volume] by Automated count 2023-10-08 23:36:45 102 fL F 80.0-100.0 IRON SATURATION 2023-09-12 09:08:52 41 % F 16.0-46.0 TIBC 2023-09-12 09:08:52 201 ug/dL F 250.0-425.0 Iron [Mass/volume] in Serum or Plasma 2023-09-12 09:06:31 83 ug/dL F 50.0-170.0 Iron binding capacity.unsaturated [Mass/volume] in Serum or Plasma 2023-09-12 09:06:25 118 ug/dL F 80.0-375.0 Ferritin [Mass/volume] in Serum or Plasma 2023-09-12 08:02:38 1164 ng/mL F 10.0-291.0 HCT CALC HGBX3 2023-09-11 18:10:38 29.1 % F 37.0-47.0 MCH [Entitic mass] by Automated count 2023-09-11 18:09:36 32.5 pg F 25.9-34.2 MCHC [Mass/volume] by Automated count 2023-09-11 18:09:36 33.3 g/dL F 29.6-35.3 MCV [Entitic volume] by Automated count 2023-09-11 18:09:36 97.7 fL F 80.0-100.0 Erythrocyte distribution width [Ratio] by Automated count 2023-09-11 18:09:33 15 % F 11.0-15.0 Hemoglobin [Mass/volume] in Blood 2023-09-11 18:09:33 9.7 g/dL F 12.0-16.0 Platelets [#/volume] in Blood by Automated count 2023-09-11 18:09:33 263 x 10^3 cells/uL F 140.0-450.0 Erythrocytes [#/volume] in Blood by Automated count 2023-09-11 18:09:33 2.97 x 10'6 cells/uL F 3.85-5.2 Hematocrit [Volume Fraction] of Blood by Automated count 2023-09-11 18:09:33 29 % F 37.0-47.0 Ferritin [Mass/volume] in Serum or Plasma 2023-08-13 19:41:32 1357 ng/mL F 10.0-291.0 IRON SATURATION 2023-08-13 05:00:42 61 % F 16.0-46.0 TIBC 2023-08-13 05:00:42 208 ug/dL F 250.0-425.0 Iron [Mass/volume] in Serum or Plasma 2023-08-13 04:55:59 127 ug/dL F 50.0-170.0 Iron binding capacity.unsaturated [Mass/volume] in Serum or Plasma 2023-08-13 04:55:59 81 ug/dL F 80.0-375.0 HCT CALC HGBX3 2023-08-12 21:41:28 30 % F 37.0-47.0 Hemoglobin [Mass/volume] in Blood 2023-08-12 21:41:18 10 g/dL F 12.0-16.0 MCH [Entitic mass] by Automated count 2023-08-12 21:41:18 30.2 pg F 25.9-34.2 Hematocrit [Volume Fraction] of Blood by Automated count 2023-08-12 21:41:18 31.3 % F 37.0-47.0 MCV [Entitic volume] by Automated count 2023-08-12 21:41:18 94.6 fL F 80.0-100.0 Erythrocyte distribution width [Ratio] by Automated count 2023-08-12 21:41:15 16.8 % F 11.0-15.0 Platelets [#/volume] in Blood by Automated count 2023-08-12 21:41:15 192 x 10^3 cells/uL F 140.0-450.0 MCHC [Mass/volume] by Automated count 2023-08-12 21:41:15 31.9 g/dL F 29.6-35.3 Erythrocytes [#/volume] in Blood by Automated count 2023-08-12 21:41:15 3.31 x 10'6 cells/uL F 3.85-5.2 Ferritin [Mass/volume] in Serum or Plasma 2023-07-09 04:58:38 1050 ng/mL F 10.0-291.0 HCT CALC HGBX3 2023-07-09 04:14:23 36 % F 37.0-47.0 Hemoglobin [Mass/volume] in Blood 2023-07-09 04:13:54 12 g/dL F 12.0-16.0 Erythrocytes [#/volume] in Blood by Automated count 2023-07-09 04:13:54 3.89 x 10'6 cells/uL F 3.85-5.2 Erythrocyte distribution width [Ratio] by Automated count 2023-07-09 04:13:51 18 % F 11.0-15.0 MCH [Entitic mass] by Automated count 2023-07-09 04:13:51 30.8 pg F 25.9-34.2 MCHC [Mass/volume] by Automated count 2023-07-09 04:13:51 32.5 g/dL F 29.6-35.3 Hematocrit [Volume Fraction] of Blood by Automated count 2023-07-09 04:13:51 36.8 % F 37.0-47.0 MCV [Entitic volume] by Automated count 2023-07-09 04:13:51 94.6 fL F 80.0-100.0 Platelets [#/volume] in Blood by Automated count 2023-07-09 04:13:47 232 x 10^3 cells/uL F 140.0-450.0 IRON SATURATION 2023-07-09 02:50:30 62 % F 16.0-46.0 TIBC 2023-07-09 02:50:30 206 ug/dL F 250.0-425.0 Iron [Mass/volume] in Serum or Plasma 2023-07-09 02:48:48 128 ug/dL F 50.0-170.0 Iron binding capacity.unsaturated [Mass/volume] in Serum or Plasma 2023-07-09 02:48:48 78 ug/dL F 80.0-375.0 Ferritin [Mass/volume] in Serum or Plasma 2023-06-10 07:52:48 1212 ng/mL F 10.0-291.0 IRON SATURATION 2023-06-10 06:38:41 20 % F 16.0-46.0 TIBC 2023-06-10 06:38:41 211 ug/dL F 250.0-425.0 Iron [Mass/volume] in Serum or Plasma 2023-06-10 06:33:57 43 ug/dL F 50.0-170.0 Iron binding capacity.unsaturated [Mass/volume] in Serum or Plasma 2023-06-10 06:33:57 168 ug/dL F 80.0-375.0 HCT CALC HGBX3 2023-06-09 17:50:37 35.4 % F 37.0-47.0 Erythrocyte distribution width [Ratio] by Automated count 2023-06-09 17:49:46 17.6 % F 11.0-15.0 Hemoglobin [Mass/volume] in Blood 2023-06-09 17:49:46 11.8 g/dL F 12.0-16.0 Platelets [#/volume] in Blood by Automated count 2023-06-09 17:49:46 236 x 10^3 cells/uL F 140.0-450.0 MCHC [Mass/volume] by Automated count 2023-06-09 17:49:46 31.8 g/dL F 29.6-35.3 MCH [Entitic mass] by Automated count 2023-06-09 17:49:46 29 pg F 25.9-34.2 Erythrocytes [#/volume] in Blood by Automated count 2023-06-09 17:49:46 4.08 x 10'6 cells/uL F 3.85-5.2 Hematocrit [Volume Fraction] of Blood by Automated count 2023-06-09 17:49:46 37.2 % F 37.0-47.0 MCV [Entitic volume] by Automated count 2023-06-09 17:49:46 91.3 fL F 80.0-100.0 IRON SATURATION 2023-05-13 08:52:10 24 % F 16.0-46.0 TIBC 2023-05-13 08:52:10 211 ug/dL F 250.0-425.0 Iron [Mass/volume] in Serum or Plasma 2023-05-13 08:48:34 51 ug/dL F 50.0-170.0 Iron binding capacity.unsaturated [Mass/volume] in Serum or Plasma 2023-05-13 08:48:34 160 ug/dL F 80.0-375.0 Ferritin [Mass/volume] in Serum or Plasma 2023-05-13 07:50:58 941 ng/mL F 10.0-291.0 HCT CALC HGBX3 2023-05-12 17:19:23 34.8 % F 37.0-47.0 Erythrocyte distribution width [Ratio] by Automated count 2023-05-12 17:18:40 16.5 % F 11.0-15.0 Platelets [#/volume] in Blood by Automated count 2023-05-12 17:18:40 186 x 10^3 cells/uL F 140.0-450.0 MCH [Entitic mass] by Automated count 2023-05-12 17:18:40 29.2 pg F 25.9-34.2 MCHC [Mass/volume] by Automated count 2023-05-12 17:18:40 32.7 g/dL F 29.6-35.3 MCV [Entitic volume] by Automated count 2023-05-12 17:18:40 89.4 fL F 80.0-100.0 Hemoglobin [Mass/volume] in Blood 2023-05-12 17:18:38 11.6 g/dL F 12.0-16.0 Erythrocytes [#/volume] in Blood by Automated count 2023-05-12 17:18:38 3.97 x 10'6 cells/uL F 3.85-5.2 Hematocrit [Volume Fraction] of Blood by Automated count 2023-05-12 17:18:38 35.5 % F 37.0-47.0 IRON SATURATION 2023-04-10 07:37:15 28 % F 16.0-46.0 TIBC 2023-04-10 07:37:15 204 ug/dL F 250.0-425.0 Iron [Mass/volume] in Serum or Plasma 2023-04-10 07:29:18 57 ug/dL F 50.0-170.0 Iron binding capacity.unsaturated [Mass/volume] in Serum or Plasma 2023-04-10 07:29:18 147 ug/dL F 80.0-375.0 HCT CALC HGBX3 2023-04-09 21:40:24 33.9 % F 37.0-47.0 Hemoglobin [Mass/volume] in Blood 2023-04-09 21:39:36 11.3 g/dL F 12.0-16.0 Erythrocyte distribution width [Ratio] by Automated count 2023-04-09 21:39:36 17.2 % F 11.0-15.0 Platelets [#/volume] in Blood by Automated count 2023-04-09 21:39:36 210 x 10^3 cells/uL F 140.0-450.0 MCH [Entitic mass] by Automated count 2023-04-09 21:39:36 28.7 pg F 25.9-34.2 MCHC [Mass/volume] by Automated count 2023-04-09 21:39:36 31.7 g/dL F 29.6-35.3 Hematocrit [Volume Fraction] of Blood by Automated count 2023-04-09 21:39:36 35.6 % F 37.0-47.0 Erythrocytes [#/volume] in Blood by Automated count 2023-04-09 21:39:36 3.94 x 10'6 cells/uL F 3.85-5.2 MCV [Entitic volume] by Automated count 2023-04-09 21:39:36 90.4 fL F 80.0-100.0 Ferritin [Mass/volume] in Serum or Plasma 2023-04-09 19:59:01 964 ng/mL F 10.0-291.0 IRON SATURATION 2023-03-12 05:58:07 24 % F 16.0-46.0 TIBC 2023-03-12 05:58:07 179 ug/dL F 250.0-425.0 Iron [Mass/volume] in Serum or Plasma 2023-03-12 05:49:49 43 ug/dL F 50.0-170.0 Iron binding capacity.unsaturated [Mass/volume] in Serum or Plasma 2023-03-12 05:49:49 136 ug/dL F 80.0-375.0 Ferritin [Mass/volume] in Serum or Plasma 2023-03-11 19:37:56 773 ng/mL F 10.0-291.0 HCT CALC HGBX3 2023-03-11 19:13:17 32.7 % F 37.0-47.0 Erythrocyte distribution width [Ratio] by Automated count 2023-03-11 19:12:44 16.9 % F 11.0-15.0 Hemoglobin [Mass/volume] in Blood 2023-03-11 19:12:44 10.9 g/dL F 12.0-16.0 Platelets [#/volume] in Blood by Automated count 2023-03-11 19:12:44 212 x 10^3 cells/uL F 140.0-450.0 MCH [Entitic mass] by Automated count 2023-03-11 19:12:44 28.6 pg F 25.9-34.2 MCHC [Mass/volume] by Automated count 2023-03-11 19:12:44 31.2 g/dL F 29.6-35.3 Erythrocytes [#/volume] in Blood by Automated count 2023-03-11 19:12:44 3.8 x 10'6 cells/uL F 3.85-5.2 Hematocrit [Volume Fraction] of Blood by Automated count 2023-03-11 19:12:44 34.9 % F 37.0-47.0 MCV [Entitic volume] by Automated count 2023-03-11 19:12:44 91.9 fL F 80.0-100.0 Ferritin [Mass/volume] in Serum or Plasma 2023-02-06 21:32:26 1090 ng/mL F 10.0-291.0 IRON SATURATION 2023-02-06 17:13:13 12 % F 16.0-46.0 TIBC 2023-02-06 17:13:13 241 ug/dL F 250.0-425.0 Iron [Mass/volume] in Serum or Plasma 2023-02-06 17:10:51 30 ug/dL F 50.0-170.0 Iron binding capacity.unsaturated [Mass/volume] in Serum or Plasma 2023-02-06 17:10:51 211 ug/dL F 80.0-375.0 HCT CALC HGBX3 2023-02-06 14:38:58 26.7 % F 37.0-47.0 Erythrocyte distribution width [Ratio] by Automated count 2023-02-06 14:38:34 17.7 % F 11.0-15.0 Hemoglobin [Mass/volume] in Blood 2023-02-06 14:38:34 8.9 g/dL F 12.0-16.0 Platelets [#/volume] in Blood by Automated count 2023-02-06 14:38:34 177 x 10^3 cells/uL F 140.0-450.0 MCHC [Mass/volume] by Automated count 2023-02-06 14:38:34 31.9 g/dL F 29.6-35.3 MCH [Entitic mass] by Automated count 2023-02-06 14:38:34 30.6 pg F 25.9-34.2 Erythrocytes [#/volume] in Blood by Automated count 2023-02-06 14:38:34 2.9 x 10'6 cells/uL F 3.85-5.2 Hematocrit [Volume Fraction] of Blood by Automated count 2023-02-06 14:38:34 27.8 % F 37.0-47.0 MCV [Entitic volume] by Automated count 2023-02-06 14:38:34 96.1 fL F 80.0-100.0 IRON SATURATION 2022-12-24 02:54:43 15 % F 16.0-46.0 TIBC 2022-12-24 02:54:43 207 ug/dL F 250.0-425.0 Iron [Mass/volume] in Serum or Plasma 2022-12-24 02:49:17 31 ug/dL F 50.0-170.0 Iron binding capacity.unsaturated [Mass/volume] in Serum or Plasma 2022-12-24 02:49:17 176 ug/dL F 80.0-375.0 HCT CALC HGBX3 2022-12-23 21:46:39 29.7 % F 37.0-47.0 Hemoglobin [Mass/volume] in Blood 2022-12-23 21:46:16 9.9 g/dL F 12.0-16.0 Erythrocyte distribution width [Ratio] by Automated count 2022-12-23 21:46:16 15.9 % F 11.0-15.0 Platelets [#/volume] in Blood by Automated count 2022-12-23 21:46:16 251 x 10^3 cells/uL F 140.0-450.0 MCH [Entitic mass] by Automated count 2022-12-23 21:46:16 31.8 pg F 25.9-34.2 MCHC [Mass/volume] by Automated count 2022-12-23 21:46:16 31.8 g/dL F 29.6-35.3 Erythrocytes [#/volume] in Blood by Automated count 2022-12-23 21:46:16 3.1 x 10'6 cells/uL F 3.85-5.2 Hematocrit [Volume Fraction] of Blood by Automated count 2022-12-23 21:46:16 31 % F 37.0-47.0 MCV [Entitic volume] by Automated count 2022-12-23 21:46:16 100 fL F 80.0-100.0 Ferritin [Mass/volume] in Serum or Plasma 2022-12-23 18:39:17 677 ng/mL F 10.0-291.0 HCT CALC HGBX3 2022-10-20 07:21:42 F Canceled - Specimen not received 5 days past draw date MCHC [Mass/volume] by Automated count 2022-10-20 07:07:02 F Canceled - Specimen not received 5 days past draw date Hemoglobin [Mass/volume] in Blood 2022-10-20 07:07:02 F Canceled - Specimen not received 5 days past draw date MCH [Entitic mass] by Automated count 2022-10-20 07:07:02 F Canceled - Specimen not received 5 days past draw date Platelets [#/volume] in Blood by Automated count 2022-10-20 07:07:02 F Canceled - Specimen not received 5 days past draw date Hematocrit [Volume Fraction] of Blood by Automated count 2022-10-20 07:07:02 F Canceled - Specimen not received 5 days past draw date MCV [Entitic volume] by Automated count 2022-10-20 07:07:02 F Canceled - Specimen not received 5 days past draw date Erythrocytes [#/volume] in Blood by Automated count 2022-10-20 07:07:02 F Canceled - Specimen not received 5 days past draw date Erythrocyte distribution width [Ratio] by Automated count 2022-10-20 07:07:02 F Canceled - Specimen not received 5 days past draw date IRON SATURATION 2022-10-17 04:24:03 21 % F 16.0-46.0 TIBC 2022-10-17 04:24:03 230 ug/dL F 250.0-425.0 Iron [Mass/volume] in Serum or Plasma 2022-10-17 04:20:46 49 ug/dL F 50.0-170.0 Iron binding capacity.unsaturated [Mass/volume] in Serum or Plasma 2022-10-17 04:20:46 181 ug/dL F 80.0-375.0 Ferritin [Mass/volume] in Serum or Plasma 2022-10-16 14:47:06 608 ng/mL F 10.0-291.0 IRON SATURATION 2022-06-21 04:28:47 20 % F 16.0-46.0 TIBC 2022-06-21 04:28:47 214 ug/dL F 250.0-425.0 Iron [Mass/volume] in Serum or Plasma 2022-06-21 04:17:22 42 ug/dL F 50.0-170.0 Iron binding capacity.unsaturated [Mass/volume] in Serum or Plasma 2022-06-21 04:17:22 172 ug/dL F 80.0-375.0 HCT CALC HGBX3 2022-06-20 21:00:40 27 % F 37.0-47.0 MCH [Entitic mass] by Automated count 2022-06-20 20:59:37 30.1 pg F 27.0-31.0 MCHC [Mass/volume] by Automated count 2022-06-20 20:59:37 31.6 g/dL F 32.0-36.0 Hematocrit [Volume Fraction] of Blood by Automated count 2022-06-20 20:59:37 28.5 % F 37.0-47.0 MCV [Entitic volume] by Automated count 2022-06-20 20:59:37 95.1 fL F 80.0-100.0 Erythrocyte distribution width [Ratio] by Automated count 2022-06-20 20:59:35 17.4 % F 11.0-15.0 Hemoglobin [Mass/volume] in Blood 2022-06-20 20:59:35 9 g/dL F 12.0-16.0 Platelets [#/volume] in Blood by Automated count 2022-06-20 20:59:35 251 x 10^3 cells/uL F 150.0-400.0 Erythrocytes [#/volume] in Blood by Automated count 2022-06-20 20:59:35 3 x 10'6 cells/uL F 4.2-5.4 Ferritin [Mass/volume] in Serum or Plasma 2022-06-20 20:09:42 455 ng/mL F 10.0-291.0 FluidBP Description Draw Date Result/Unit Status Ref Range Result Comments Sodium [Moles/volume] in Serum or Plasma 2025-03-13 20:50:06 144 mEq/L F 136.0-145.0 Sodium [Moles/volume] in Serum or Plasma 2025-02-09 16:45:27 142 mEq/L F 136.0-145.0 Sodium [Moles/volume] in Serum or Plasma 2025-01-11 07:09:08 140 mEq/L F 136.0-145.0 Sodium [Moles/volume] in Serum or Plasma 2025-01-11 07:09:08 140 mEq/L F 136.0-145.0 Sodium [Moles/volume] in Serum or Plasma 2025-01-11 07:09:08 140 mEq/L F 136.0-145.0 Sodium [Moles/volume] in Serum or Plasma 2024-12-10 07:07:46 142 mEq/L F 136.0-145.0 Sodium [Moles/volume] in Serum or Plasma 2024-12-10 07:07:46 142 mEq/L F 136.0-145.0 Sodium [Moles/volume] in Serum or Plasma 2024-11-12 18:24:03 139 mEq/L F 132.0-146.0 Sodium [Moles/volume] in Serum or Plasma 2024-11-12 18:24:03 139 mEq/L F 132.0-146.0 Sodium [Moles/volume] in Serum or Plasma 2024-10-12 07:36:20 138 mEq/L F 132.0-146.0 Sodium [Moles/volume] in Serum or Plasma 2024-09-24 00:03:43 138 mEq/L F 132.0-146.0 Sodium [Moles/volume] in Serum or Plasma 2024-08-11 06:34:28 137 mEq/L F 132.0-146.0 Sodium [Moles/volume] in Serum or Plasma 2024-07-15 20:51:02 136 mEq/L F 132.0-146.0 Sodium [Moles/volume] in Serum or Plasma 2023-12-16 06:54:01 136 mEq/L F 132.0-146.0 Sodium [Moles/volume] in Serum or Plasma 2023-11-06 16:24:47 136 mEq/L F 132.0-146.0 Sodium [Moles/volume] in Serum or Plasma 2023-10-09 16:18:06 140 mEq/L F 132.0-146.0 Sodium [Moles/volume] in Serum or Plasma 2023-09-12 09:06:25 141 mEq/L F 132.0-146.0 Sodium [Moles/volume] in Serum or Plasma 2023-08-13 04:55:58 139 mEq/L F 132.0-146.0 Sodium [Moles/volume] in Serum or Plasma 2023-07-09 02:48:46 139 mEq/L F 132.0-146.0 Sodium [Moles/volume] in Serum or Plasma 2023-06-10 06:33:57 137 mEq/L F 132.0-146.0 Sodium [Moles/volume] in Serum or Plasma 2023-05-12 16:23:38 139 mEq/L F 132.0-146.0 Sodium [Moles/volume] in Serum or Plasma 2023-04-09 17:51:38 139 mEq/L F 132.0-146.0 Sodium [Moles/volume] in Serum or Plasma 2023-03-12 01:47:36 141 mEq/L F 132.0-146.0 Sodium [Moles/volume] in Serum or Plasma 2023-02-06 14:45:27 140 mEq/L F 132.0-146.0 Sodium [Moles/volume] in Serum or Plasma 2022-12-23 16:01:14 142 mEq/L F 132.0-146.0 Sodium [Moles/volume] in Serum or Plasma 2022-10-16 16:53:16 139 mEq/L F 132.0-146.0 Sodium [Moles/volume] in Serum or Plasma 2022-06-20 20:22:44 140 mEq/L F 132.0-146.0 General Description Draw Date Result/Unit Status Ref Range Result Comments Alanine aminotransferase [Enzymatic activity/volume] in Serum or Plasma 2025-03-12 03:30:19 12 U/L F 10.0-49.0 Aspartate aminotransferase [Enzymatic activity/volume] in Serum or Plasma 2025-03-12 03:30:19 18 U/L F 0.0-33.0 [facility] PD 2025-02-10 00:15:20 2.3 g/day F Alanine aminotransferase [Enzymatic activity/volume] in Serum or Plasma 2025-02-09 14:28:22 12 U/L F 10.0-49.0 Aspartate aminotransferase [Enzymatic activity/volume] in Serum or Plasma 2025-02-09 14:28:22 19 U/L F 0.0-33.0 Aspartate aminotransferase [Enzymatic activity/volume] in Serum or Plasma 2025-01-10 20:21:16 19 U/L F 0.0-33.0 Alanine aminotransferase [Enzymatic activity/volume] in Serum or Plasma 2025-01-10 20:21:16 12 U/L F 10.0-49.0 Aspartate aminotransferase [Enzymatic activity/volume] in Serum or Plasma 2025-01-10 20:21:16 19 U/L F 0.0-33.0 Alanine aminotransferase [Enzymatic activity/volume] in Serum or Plasma 2025-01-10 20:21:16 12 U/L F 10.0-49.0 Alanine aminotransferase [Enzymatic activity/volume] in Serum or Plasma 2025-01-10 20:21:16 12 U/L F 10.0-49.0 Aspartate aminotransferase [Enzymatic activity/volume] in Serum or Plasma 2025-01-10 20:21:16 19 U/L F 0.0-33.0 Aspartate aminotransferase [Enzymatic activity/volume] in Serum or Plasma 2024-12-09 16:27:13 19 U/L F 0.0-33.0 Alanine aminotransferase [Enzymatic activity/volume] in Serum or Plasma 2024-12-09 16:27:13 11 U/L F 10.0-49.0 Aspartate aminotransferase [Enzymatic activity/volume] in Serum or Plasma 2024-12-09 16:27:13 19 U/L F 0.0-33.0 Alanine aminotransferase [Enzymatic activity/volume] in Serum or Plasma 2024-12-09 16:27:13 11 U/L F 10.0-49.0 [facility] PD 2024-11-12 17:13:01 3.2 g/day F [facility] 2024-11-12 17:13:01 3.2 g/day F Aspartate aminotransferase [Enzymatic activity/volume] in Serum or Plasma 2024-11-12 17:01:12 21 U/L F 0.0-33.0 Alanine aminotransferase [Enzymatic activity/volume] in Serum or Plasma 2024-11-12 17:01:12 11 U/L F 10.0-49.0 Aspartate aminotransferase [Enzymatic activity/volume] in Serum or Plasma 2024-11-12 17:01:12 21 U/L F 0.0-33.0 Alanine aminotransferase [Enzymatic activity/volume] in Serum or Plasma 2024-11-12 17:01:12 11 U/L F 10.0-49.0 Aspartate aminotransferase [Enzymatic activity/volume] in Serum or Plasma 2024-10-11 14:39:24 22 U/L F 0.0-33.0 Alanine aminotransferase [Enzymatic activity/volume] in Serum or Plasma 2024-10-11 14:39:24 13 U/L F 10.0-49.0 Aspartate aminotransferase [Enzymatic activity/volume] in Serum or Plasma 2024-09-23 17:56:18 19 U/L F 0.0-33.0 Alanine aminotransferase [Enzymatic activity/volume] in Serum or Plasma 2024-09-13 15:45:24 14 U/L F 10.0-49.0 [facility] PD 2024-08-31 07:04:05 4 g/day F [facility] 2024-08-24 17:40:08 4.1 g/day F [facility] 2024-08-10 23:34:32 3.7 g/day F Aluminum [Mass/volume] in Serum or Plasma 2024-08-10 17:55:21 10 ug/L F 0.0-9.0 Aspartate aminotransferase [Enzymatic activity/volume] in Serum or Plasma 2024-08-10 15:30:22 18 U/L F 0.0-33.0 Alanine aminotransferase [Enzymatic activity/volume] in Serum or Plasma 2024-08-10 15:30:22 10 U/L F 10.0-49.0 [facility] PD 2024-07-19 08:36:12 see comments F Unable to Calculate. Aluminum [Mass/volume] in Serum or Plasma 2024-07-15 20:03:38 10 ug/L F 0.0-9.0 Aspartate aminotransferase [Enzymatic activity/volume] in Serum or Plasma 2024-07-15 16:00:22 15 U/L F 0.0-33.0 Alanine aminotransferase [Enzymatic activity/volume] in Serum or Plasma 2024-07-15 16:00:22 16 U/L F 10.0-49.0 [facility] PD 2023-12-16 06:03:57 2.9 g/day F Aspartate aminotransferase [Enzymatic activity/volume] in Serum or Plasma 2023-12-16 01:00:39 12 U/L F 0.0-33.0 Alanine aminotransferase [Enzymatic activity/volume] in Serum or Plasma 2023-12-16 01:00:39 9 U/L F 10.0-49.0 Aspartate aminotransferase [Enzymatic activity/volume] in Serum or Plasma 2023-11-06 14:18:39 11 U/L F 0.0-33.0 Alanine aminotransferase [Enzymatic activity/volume] in Serum or Plasma 2023-11-06 14:18:39 9 U/L F 10.0-49.0 Aspartate aminotransferase [Enzymatic activity/volume] in Serum or Plasma 2023-10-09 14:53:39 16 U/L F 0.0-33.0 Alanine aminotransferase [Enzymatic activity/volume] in Serum or Plasma 2023-10-09 14:53:39 9 U/L F 10.0-49.0 [facility] PD 2023-10-09 07:01:55 4.1 g/day F Aspartate aminotransferase [Enzymatic activity/volume] in Serum or Plasma 2023-09-12 06:31:04 21 U/L F 0.0-33.0 Alanine aminotransferase [Enzymatic activity/volume] in Serum or Plasma 2023-09-12 06:31:04 15 U/L F 10.0-49.0 [facility] PD 2023-08-13 04:02:05 4.9 g/day F Aspartate aminotransferase [Enzymatic activity/volume] in Serum or Plasma 2023-08-12 20:43:12 21 U/L F 0.0-33.0 Alanine aminotransferase [Enzymatic activity/volume] in Serum or Plasma 2023-08-12 20:43:12 14 U/L F 10.0-49.0 Aspartate aminotransferase [Enzymatic activity/volume] in Serum or Plasma 2023-07-08 23:12:44 20 U/L F 0.0-33.0 Alanine aminotransferase [Enzymatic activity/volume] in Serum or Plasma 2023-07-08 23:12:44 16 U/L F 10.0-49.0 Aluminum [Mass/volume] in Serum or Plasma 2023-07-08 19:07:54 10 ug/L F 0.0-9.0 Aspartate aminotransferase [Enzymatic activity/volume] in Serum or Plasma 2023-06-10 00:00:41 19 U/L F 0.0-33.0 Alanine aminotransferase [Enzymatic activity/volume] in Serum or Plasma 2023-06-10 00:00:41 13 U/L F 10.0-49.0 [facility] PD 2023-06-09 23:07:52 4.7 g/day F Aspartate aminotransferase [Enzymatic activity/volume] in Serum or Plasma 2023-05-12 16:23:38 26 U/L F 0.0-33.0 Alanine aminotransferase [Enzymatic activity/volume] in Serum or Plasma 2023-05-12 16:23:38 25 U/L F 10.0-49.0 [facility] PD 2023-04-09 18:12:09 3.7 g/day F Aspartate aminotransferase [Enzymatic activity/volume] in Serum or Plasma 2023-04-09 17:51:38 17 U/L F 0.0-33.0 Alanine aminotransferase [Enzymatic activity/volume] in Serum or Plasma 2023-04-09 17:51:38 14 U/L F 10.0-49.0 Aspartate aminotransferase [Enzymatic activity/volume] in Serum or Plasma 2023-03-12 01:47:36 16 U/L F 0.0-33.0 Alanine aminotransferase [Enzymatic activity/volume] in Serum or Plasma 2023-03-12 01:47:36 9 U/L F 10.0-49.0 Aspartate aminotransferase [Enzymatic activity/volume] in Serum or Plasma 2023-02-06 14:45:27 15 U/L F 0.0-33.0 Aluminum [Mass/volume] in Serum or Plasma 2022-12-23 17:42:15 10 ug/L F 0.0-9.0 Aspartate aminotransferase [Enzymatic activity/volume] in Serum or Plasma 2022-12-23 16:01:14 20 U/L F 0.0-33.0 Alanine aminotransferase [Enzymatic activity/volume] in Serum or Plasma 2022-12-23 16:01:14 14 U/L F 10.0-49.0 Aspartate aminotransferase [Enzymatic activity/volume] in Serum or Plasma 2022-10-16 16:53:16 14 U/L F 0.0-33.0 Alanine aminotransferase [Enzymatic activity/volume] in Serum or Plasma 2022-10-16 16:53:16 11 U/L F 10.0-49.0 Chloride [Moles/volume] in Serum or Plasma 2022-10-16 16:53:16 99 mEq/L F 99.0-109.0 Aluminum [Mass/volume] in Serum or Plasma 2022-10-16 16:21:29 10 ug/L F 0.0-9.0 Aspartate aminotransferase [Enzymatic activity/volume] in Serum or Plasma 2022-06-20 20:22:44 18 U/L F 0.0-33.0 Alanine aminotransferase [Enzymatic activity/volume] in Serum or Plasma 2022-06-20 20:22:44 13 U/L F 10.0-49.0 Chloride [Moles/volume] in Serum or Plasma 2022-06-20 20:22:44 103 mEq/L F 99.0-109.0 InfectionVaccination Description Draw Date Result/Unit Status Ref Range Result Comments Leukocytes [#/volume] in Blood by Automated count 2025-03-11 22:07:17 11.8 x 10^3 cells/uL F 4.0-11.0 Basophils/100 leukocytes in Blood by Automated count 2025-03-11 22:07:15 0.4 % F Neutrophils/100 leukocytes in Blood by Automated count 2025-03-11 22:07:15 76.1 % F Lymphocytes/100 leukocytes in Blood by Automated count 2025-03-11 22:07:15 15.5 % F Monocytes/100 leukocytes in Blood by Automated count 2025-03-11 22:07:15 4.2 % F Eosinophils/100 leukocytes in Blood by Automated count 2025-03-11 22:07:15 3.8 % F Neutrophils [#/volume] in Blood by Automated count 2025-03-11 22:07:15 8942 Cells/uL F 2000.0-8800.0 Lymphocytes [#/volume] in Blood by Automated count 2025-03-11 22:07:15 1821 Cells/uL F 620.0-3660.0 Monocytes [#/volume] in Blood by Automated count 2025-03-11 22:07:15 494 Cells/uL F 0.0-1100.0 Basophils [#/volume] in Blood by Automated count 2025-03-11 22:07:15 47 Cells/uL F 0.0-400.0 Eosinophils [#/volume] in Blood by Automated count 2025-03-11 22:07:15 446 Cells/uL F 0.0-700.0 Basophils/100 leukocytes in Blood by Automated count 2025-02-09 14:49:22 0.5 % F Neutrophils/100 leukocytes in Blood by Automated count 2025-02-09 14:49:22 80.7 % F Monocytes/100 leukocytes in Blood by Automated count 2025-02-09 14:49:22 4 % F Lymphocytes/100 leukocytes in Blood by Automated count 2025-02-09 14:49:22 12.3 % F Eosinophils/100 leukocytes in Blood by Automated count 2025-02-09 14:49:22 2.6 % F Leukocytes [#/volume] in Blood by Automated count 2025-02-09 14:49:22 13.3 x 10^3 cells/uL F 4.0-11.0 Lymphocytes [#/volume] in Blood by Automated count 2025-02-09 14:49:22 1637 Cells/uL F 620.0-3660.0 Neutrophils [#/volume] in Blood by Automated count 2025-02-09 14:49:22 58860 Cells/uL F 2000.0-8800.0 Monocytes [#/volume] in Blood by Automated count 2025-02-09 14:49:22 532 Cells/uL F 0.0-1100.0 Basophils [#/volume] in Blood by Automated count 2025-02-09 14:49:22 67 Cells/uL F 0.0-400.0 Eosinophils [#/volume] in Blood by Automated count 2025-02-09 14:49:22 346 Cells/uL F 0.0-700.0 Neutrophils/100 leukocytes in Blood by Automated count 2025-01-10 20:47:17 77 % F Monocytes/100 leukocytes in Blood by Automated count 2025-01-10 20:47:17 4.2 % F Eosinophils [#/volume] in Blood by Automated count 2025-01-10 20:47:17 280 Cells/uL F 0.0-700.0 Neutrophils [#/volume] in Blood by Automated count 2025-01-10 20:47:17 8293 Cells/uL F 2000.0-8800.0 Basophils [#/volume] in Blood by Automated count 2025-01-10 20:47:17 43 Cells/uL F 0.0-400.0 Lymphocytes/100 leukocytes in Blood by Automated count 2025-01-10 20:47:17 15.9 % F Monocytes [#/volume] in Blood by Automated count 2025-01-10 20:47:17 452 Cells/uL F 0.0-1100.0 Lymphocytes [#/volume] in Blood by Automated count 2025-01-10 20:47:17 1712 Cells/uL F 620.0-3660.0 Leukocytes [#/volume] in Blood by Automated count 2025-01-10 20:47:17 10.8 x 10^3 cells/uL F 4.0-11.0 Eosinophils/100 leukocytes in Blood by Automated count 2025-01-10 20:47:17 2.6 % F Basophils/100 leukocytes in Blood by Automated count 2025-01-10 20:47:17 0.4 % F Monocytes/100 leukocytes in Blood by Automated count 2025-01-10 20:47:17 4.2 % F Neutrophils/100 leukocytes in Blood by Automated count 2025-01-10 20:47:17 77 % F Eosinophils/100 leukocytes in Blood by Automated count 2025-01-10 20:47:17 2.6 % F Monocytes [#/volume] in Blood by Automated count 2025-01-10 20:47:17 452 Cells/uL F 0.0-1100.0 Basophils/100 leukocytes in Blood by Automated count 2025-01-10 20:47:17 0.4 % F Eosinophils [#/volume] in Blood by Automated count 2025-01-10 20:47:17 280 Cells/uL F 0.0-700.0 Basophils [#/volume] in Blood by Automated count 2025-01-10 20:47:17 43 Cells/uL F 0.0-400.0 Neutrophils [#/volume] in Blood by Automated count 2025-01-10 20:47:17 8293 Cells/uL F 2000.0-8800.0 Lymphocytes [#/volume] in Blood by Automated count 2025-01-10 20:47:17 1712 Cells/uL F 620.0-3660.0 Lymphocytes/100 leukocytes in Blood by Automated count 2025-01-10 20:47:17 15.9 % F Leukocytes [#/volume] in Blood by Automated count 2025-01-10 20:47:17 10.8 x 10^3 cells/uL F 4.0-11.0 Neutrophils/100 leukocytes in Blood by Automated count 2025-01-10 20:47:17 77 % F Lymphocytes/100 leukocytes in Blood by Automated count 2025-01-10 20:47:17 15.9 % F Basophils/100 leukocytes in Blood by Automated count 2025-01-10 20:47:17 0.4 % F Monocytes/100 leukocytes in Blood by Automated count 2025-01-10 20:47:17 4.2 % F Eosinophils/100 leukocytes in Blood by Automated count 2025-01-10 20:47:17 2.6 % F Leukocytes [#/volume] in Blood by Automated count 2025-01-10 20:47:17 10.8 x 10^3 cells/uL F 4.0-11.0 Neutrophils [#/volume] in Blood by Automated count 2025-01-10 20:47:17 8293 Cells/uL F 2000.0-8800.0 Monocytes [#/volume] in Blood by Automated count 2025-01-10 20:47:17 452 Cells/uL F 0.0-1100.0 Lymphocytes [#/volume] in Blood by Automated count 2025-01-10 20:47:17 1712 Cells/uL F 620.0-3660.0 Eosinophils [#/volume] in Blood by Automated count 2025-01-10 20:47:17 280 Cells/uL F 0.0-700.0 Basophils [#/volume] in Blood by Automated count 2025-01-10 20:47:17 43 Cells/uL F 0.0-400.0 Eosinophils/100 leukocytes in Blood by Automated count 2024-12-10 01:28:15 2.6 % F Basophils/100 leukocytes in Blood by Automated count 2024-12-10 01:28:15 0.6 % F Lymphocytes/100 leukocytes in Blood by Automated count 2024-12-10 01:28:15 14.2 % F Monocytes/100 leukocytes in Blood by Automated count 2024-12-10 01:28:15 5.7 % F Neutrophils/100 leukocytes in Blood by Automated count 2024-12-10 01:28:15 76.8 % F Monocytes [#/volume] in Blood by Automated count 2024-12-10 01:28:15 580 Cells/uL F 0.0-1100.0 Eosinophils [#/volume] in Blood by Automated count 2024-12-10 01:28:15 265 Cells/uL F 0.0-700.0 Basophils [#/volume] in Blood by Automated count 2024-12-10 01:28:15 61 Cells/uL F 0.0-400.0 Neutrophils [#/volume] in Blood by Automated count 2024-12-10 01:28:15 7818 Cells/uL F 2000.0-8800.0 Leukocytes [#/volume] in Blood by Automated count 2024-12-10 01:28:15 10.2 x 10^3 cells/uL F 4.0-11.0 Lymphocytes [#/volume] in Blood by Automated count 2024-12-10 01:28:15 1446 Cells/uL F 620.0-3660.0 Basophils/100 leukocytes in Blood by Automated count 2024-12-10 01:28:15 0.6 % F Lymphocytes/100 leukocytes in Blood by Automated count 2024-12-10 01:28:15 14.2 % F Monocytes/100 leukocytes in Blood by Automated count 2024-12-10 01:28:15 5.7 % F Neutrophils/100 leukocytes in Blood by Automated count 2024-12-10 01:28:15 76.8 % F Basophils [#/volume] in Blood by Automated count 2024-12-10 01:28:15 61 Cells/uL F 0.0-400.0 Lymphocytes [#/volume] in Blood by Automated count 2024-12-10 01:28:15 1446 Cells/uL F 620.0-3660.0 Eosinophils/100 leukocytes in Blood by Automated count 2024-12-10 01:28:15 2.6 % F Monocytes [#/volume] in Blood by Automated count 2024-12-10 01:28:15 580 Cells/uL F 0.0-1100.0 Eosinophils [#/volume] in Blood by Automated count 2024-12-10 01:28:15 265 Cells/uL F 0.0-700.0 Neutrophils [#/volume] in Blood by Automated count 2024-12-10 01:28:15 7818 Cells/uL F 2000.0-8800.0 Leukocytes [#/volume] in Blood by Automated count 2024-12-10 01:28:15 10.2 x 10^3 cells/uL F 4.0-11.0 Neutrophils/100 leukocytes in Blood by Automated count 2024-11-12 21:59:19 78 % F Eosinophils [#/volume] in Blood by Automated count 2024-11-12 21:59:19 247 Cells/uL F 0.0-700.0 Lymphocytes [#/volume] in Blood by Automated count 2024-11-12 21:59:19 1805 Cells/uL F 620.0-3660.0 Monocytes/100 leukocytes in Blood by Automated count 2024-11-12 21:59:19 5.3 % F Basophils [#/volume] in Blood by Automated count 2024-11-12 21:59:19 37 Cells/uL F 0.0-400.0 Eosinophils/100 leukocytes in Blood by Automated count 2024-11-12 21:59:19 2 % F Neutrophils [#/volume] in Blood by Automated count 2024-11-12 21:59:19 9641 Cells/uL F 2000.0-8800.0 Monocytes [#/volume] in Blood by Automated count 2024-11-12 21:59:19 655 Cells/uL F 0.0-1100.0 Lymphocytes/100 leukocytes in Blood by Automated count 2024-11-12 21:59:19 14.6 % F Basophils/100 leukocytes in Blood by Automated count 2024-11-12 21:59:19 0.3 % F Leukocytes [#/volume] in Blood by Automated count 2024-11-12 21:59:19 12.4 x 10^3 cells/uL F 4.0-11.0 Neutrophils/100 leukocytes in Blood by Automated count 2024-11-12 21:59:19 78 % F Eosinophils/100 leukocytes in Blood by Automated count 2024-11-12 21:59:19 2 % F Monocytes/100 leukocytes in Blood by Automated count 2024-11-12 21:59:19 5.3 % F Basophils/100 leukocytes in Blood by Automated count 2024-11-12 21:59:19 0.3 % F Lymphocytes/100 leukocytes in Blood by Automated count 2024-11-12 21:59:19 14.6 % F Monocytes [#/volume] in Blood by Automated count 2024-11-12 21:59:19 655 Cells/uL F 0.0-1100.0 Basophils [#/volume] in Blood by Automated count 2024-11-12 21:59:19 37 Cells/uL F 0.0-400.0 Eosinophils [#/volume] in Blood by Automated count 2024-11-12 21:59:19 247 Cells/uL F 0.0-700.0 Neutrophils [#/volume] in Blood by Automated count 2024-11-12 21:59:19 9641 Cells/uL F 2000.0-8800.0 Leukocytes [#/volume] in Blood by Automated count 2024-11-12 21:59:19 12.4 x 10^3 cells/uL F 4.0-11.0 Lymphocytes [#/volume] in Blood by Automated count 2024-11-12 21:59:19 1805 Cells/uL F 620.0-3660.0 Lymphocytes/100 leukocytes in Blood by Automated count 2024-10-11 23:37:23 18.5 % F Eosinophils/100 leukocytes in Blood by Automated count 2024-10-11 23:37:23 2.7 % F Neutrophils/100 leukocytes in Blood by Automated count 2024-10-11 23:37:23 72.2 % F Monocytes/100 leukocytes in Blood by Automated count 2024-10-11 23:37:23 6.1 % F Basophils/100 leukocytes in Blood by Automated count 2024-10-11 23:37:23 0.5 % F Monocytes [#/volume] in Blood by Automated count 2024-10-11 23:37:23 587 Cells/uL F 0.0-1100.0 Basophils [#/volume] in Blood by Automated count 2024-10-11 23:37:23 48 Cells/uL F 0.0-400.0 Eosinophils [#/volume] in Blood by Automated count 2024-10-11 23:37:23 260 Cells/uL F 0.0-700.0 Neutrophils [#/volume] in Blood by Automated count 2024-10-11 23:37:23 6953 Cells/uL F 2000.0-8800.0 Leukocytes [#/volume] in Blood by Automated count 2024-10-11 23:37:23 9.6 x 10^3 cells/uL F 4.0-11.0 Lymphocytes [#/volume] in Blood by Automated count 2024-10-11 23:37:23 1782 Cells/uL F 620.0-3660.0 Eosinophils/100 leukocytes in Blood by Automated count 2024-09-13 18:10:11 2.2 % F Lymphocytes/100 leukocytes in Blood by Automated count 2024-09-13 18:10:11 15.2 % F Neutrophils/100 leukocytes in Blood by Automated count 2024-09-13 18:10:11 76.4 % F Monocytes/100 leukocytes in Blood by Automated count 2024-09-13 18:10:11 5.1 % F Basophils/100 leukocytes in Blood by Automated count 2024-09-13 18:10:11 1.1 % F Monocytes [#/volume] in Blood by Automated count 2024-09-13 18:10:11 570 Cells/uL F 0.0-1100.0 Eosinophils [#/volume] in Blood by Automated count 2024-09-13 18:10:11 246 Cells/uL F 0.0-700.0 Basophils [#/volume] in Blood by Automated count 2024-09-13 18:10:11 123 Cells/uL F 0.0-400.0 Neutrophils [#/volume] in Blood by Automated count 2024-09-13 18:10:11 8534 Cells/uL F 2000.0-8800.0 Leukocytes [#/volume] in Blood by Automated count 2024-09-13 18:10:11 11.2 x 10^3 cells/uL F 4.0-11.0 Lymphocytes [#/volume] in Blood by Automated count 2024-09-13 18:10:11 1698 Cells/uL F 620.0-3660.0 Neutrophils [#/volume] in Blood by Automated count 2024-08-10 15:38:20 9723 Cells/uL F 2000.0-8800.0 Monocytes/100 leukocytes in Blood by Automated count 2024-08-10 15:38:18 5.8 % F Basophils/100 leukocytes in Blood by Automated count 2024-08-10 15:38:18 0.4 % F Eosinophils/100 leukocytes in Blood by Automated count 2024-08-10 15:38:18 2 % F Neutrophils/100 leukocytes in Blood by Automated count 2024-08-10 15:38:18 78.6 % F Lymphocytes/100 leukocytes in Blood by Automated count 2024-08-10 15:38:18 13.1 % F Monocytes [#/volume] in Blood by Automated count 2024-08-10 15:38:18 717 Cells/uL F 0.0-1100.0 Basophils [#/volume] in Blood by Automated count 2024-08-10 15:38:18 49 Cells/uL F 0.0-400.0 Eosinophils [#/volume] in Blood by Automated count 2024-08-10 15:38:18 247 Cells/uL F 0.0-700.0 Leukocytes [#/volume] in Blood by Automated count 2024-08-10 15:38:18 12.4 x 10^3 cells/uL F 4.0-11.0 Lymphocytes [#/volume] in Blood by Automated count 2024-08-10 15:38:18 1620 Cells/uL F 620.0-3660.0 Monocytes/100 leukocytes in Blood by Automated count 2024-07-15 16:59:14 4.5 % F Neutrophils/100 leukocytes in Blood by Automated count 2024-07-15 16:59:14 85 % F Basophils/100 leukocytes in Blood by Automated count 2024-07-15 16:59:14 2.1 % F Eosinophils/100 leukocytes in Blood by Automated count 2024-07-15 16:59:14 4.4 % F Lymphocytes/100 leukocytes in Blood by Automated count 2024-07-15 16:59:14 4.1 % F Monocytes [#/volume] in Blood by Automated count 2024-07-15 16:59:14 620 Cells/uL F 0.0-1100.0 Basophils [#/volume] in Blood by Automated count 2024-07-15 16:59:14 289 Cells/uL F 0.0-400.0 Eosinophils [#/volume] in Blood by Automated count 2024-07-15 16:59:14 606 Cells/uL F 0.0-700.0 Neutrophils [#/volume] in Blood by Automated count 2024-07-15 16:59:14 25361 Cells/uL F 2000.0-8800.0 Leukocytes [#/volume] in Blood by Automated count 2024-07-15 16:59:14 13.8 x 10^3 cells/uL F 4.0-11.0 Lymphocytes [#/volume] in Blood by Automated count 2024-07-15 16:59:14 565 Cells/uL F 620.0-3660.0 Neutrophils/100 leukocytes in Blood by Automated count 2023-12-17 03:00:55 78 % F Eosinophils/100 leukocytes in Blood by Automated count 2023-12-17 03:00:55 2.1 % F Monocytes/100 leukocytes in Blood by Automated count 2023-12-17 03:00:55 6.1 % F Basophils/100 leukocytes in Blood by Automated count 2023-12-17 03:00:55 0.5 % F Lymphocytes/100 leukocytes in Blood by Automated count 2023-12-17 03:00:55 13.3 % F Monocytes [#/volume] in Blood by Automated count 2023-12-17 03:00:55 629 Cell/uL F 0.0-1100.0 Basophils [#/volume] in Blood by Automated count 2023-12-17 03:00:55 52 Cell/uL F 0.0-400.0 Eosinophils [#/volume] in Blood by Automated count 2023-12-17 03:00:55 217 Cell/uL F 0.0-700.0 Neutrophils [#/volume] in Blood by Automated count 2023-12-17 03:00:55 8042 Cell/uL F 2000.0-8800.0 Leukocytes [#/volume] in Blood by Automated count 2023-12-17 03:00:55 10.3 x 10^3 cells/uL F 4.0-11.0 Lymphocytes [#/volume] in Blood by Automated count 2023-12-17 03:00:55 1371 Cell/uL F 620.0-3660.0 Neutrophils/100 leukocytes in Blood by Automated count 2023-11-06 22:50:37 78.7 % F Lymphocytes [#/volume] in Blood by Automated count 2023-11-06 22:50:37 1434 Cell/uL F 620.0-3660.0 Basophils/100 leukocytes in Blood by Automated count 2023-11-06 22:50:35 0.8 % F Monocytes/100 leukocytes in Blood by Automated count 2023-11-06 22:50:35 5.3 % F Eosinophils/100 leukocytes in Blood by Automated count 2023-11-06 22:50:35 2.2 % F Lymphocytes/100 leukocytes in Blood by Automated count 2023-11-06 22:50:35 13 % F Monocytes [#/volume] in Blood by Automated count 2023-11-06 22:50:35 585 Cell/uL F 0.0-1100.0 Basophils [#/volume] in Blood by Automated count 2023-11-06 22:50:35 88 Cell/uL F 0.0-400.0 Eosinophils [#/volume] in Blood by Automated count 2023-11-06 22:50:35 243 Cell/uL F 0.0-700.0 Neutrophils [#/volume] in Blood by Automated count 2023-11-06 22:50:35 8681 Cell/uL F 2000.0-8800.0 Leukocytes [#/volume] in Blood by Automated count 2023-11-06 22:50:35 11 x 10^3 cells/uL F 4.0-11.0 Eosinophils/100 leukocytes in Blood by Automated count 2023-10-08 23:36:45 2 % F Neutrophils/100 leukocytes in Blood by Automated count 2023-10-08 23:36:45 78 % F Monocytes/100 leukocytes in Blood by Automated count 2023-10-08 23:36:45 5.2 % F Lymphocytes/100 leukocytes in Blood by Automated count 2023-10-08 23:36:45 14.6 % F Basophils/100 leukocytes in Blood by Automated count 2023-10-08 23:36:45 0.4 % F Monocytes [#/volume] in Blood by Automated count 2023-10-08 23:36:45 625 Cell/uL F 0.0-1100.0 Eosinophils [#/volume] in Blood by Automated count 2023-10-08 23:36:45 240 Cell/uL F 0.0-700.0 Basophils [#/volume] in Blood by Automated count 2023-10-08 23:36:45 48 Cell/uL F 0.0-400.0 Neutrophils [#/volume] in Blood by Automated count 2023-10-08 23:36:45 9368 Cell/uL F 2000.0-8800.0 Leukocytes [#/volume] in Blood by Automated count 2023-10-08 23:36:45 12 x 10^3 cells/uL F 4.0-11.0 Lymphocytes [#/volume] in Blood by Automated count 2023-10-08 23:36:45 1753 Cell/uL F 620.0-3660.0 Eosinophils/100 leukocytes in Blood by Automated count 2023-09-11 18:09:42 2.1 % F Monocytes/100 leukocytes in Blood by Automated count 2023-09-11 18:09:42 4.8 % F Basophils/100 leukocytes in Blood by Automated count 2023-09-11 18:09:39 0.2 % F Monocytes [#/volume] in Blood by Automated count 2023-09-11 18:09:39 593 Cell/uL F 0.0-1100.0 Neutrophils [#/volume] in Blood by Automated count 2023-09-11 18:09:39 9826 Cell/uL F 2000.0-8800.0 Neutrophils/100 leukocytes in Blood by Automated count 2023-09-11 18:09:33 79.5 % F Leukocytes [#/volume] in Blood by Automated count 2023-09-11 18:09:33 12.4 x 10^3 cells/uL F 4.0-11.0 Lymphocytes/100 leukocytes in Blood by Automated count 2023-09-11 18:09:31 13.4 % F Basophils [#/volume] in Blood by Automated count 2023-09-11 18:09:31 25 Cell/uL F 0.0-400.0 Eosinophils [#/volume] in Blood by Automated count 2023-09-11 18:09:31 260 Cell/uL F 0.0-700.0 Lymphocytes [#/volume] in Blood by Automated count 2023-09-11 18:09:31 1656 Cell/uL F 620.0-3660.0 Lymphocytes/100 leukocytes in Blood by Automated count 2023-08-12 21:41:18 13.2 % F Basophils [#/volume] in Blood by Automated count 2023-08-12 21:41:18 31 Cell/uL F 0.0-400.0 Eosinophils [#/volume] in Blood by Automated count 2023-08-12 21:41:18 167 Cell/uL F 0.0-700.0 Leukocytes [#/volume] in Blood by Automated count 2023-08-12 21:41:18 10.4 x 10^3 cells/uL F 4.0-11.0 Lymphocytes [#/volume] in Blood by Automated count 2023-08-12 21:41:18 1378 Cell/uL F 620.0-3660.0 Eosinophils/100 leukocytes in Blood by Automated count 2023-08-12 21:41:15 1.6 % F Neutrophils/100 leukocytes in Blood by Automated count 2023-08-12 21:41:15 79.1 % F Monocytes/100 leukocytes in Blood by Automated count 2023-08-12 21:41:15 5.9 % F Basophils/100 leukocytes in Blood by Automated count 2023-08-12 21:41:15 0.3 % F Monocytes [#/volume] in Blood by Automated count 2023-08-12 21:41:15 616 Cell/uL F 0.0-1100.0 Neutrophils [#/volume] in Blood by Automated count 2023-08-12 21:41:15 8258 Cell/uL F 2000.0-8800.0 Lymphocytes/100 leukocytes in Blood by Automated count 2023-07-09 04:13:54 13 % F Leukocytes [#/volume] in Blood by Automated count 2023-07-09 04:13:54 12.2 x 10^3 cells/uL F 4.0-11.0 Lymphocytes [#/volume] in Blood by Automated count 2023-07-09 04:13:54 1587 Cell/uL F 620.0-3660.0 Monocytes [#/volume] in Blood by Automated count 2023-07-09 04:13:51 586 Cell/uL F 0.0-1100.0 Basophils [#/volume] in Blood by Automated count 2023-07-09 04:13:51 49 Cell/uL F 0.0-400.0 Eosinophils [#/volume] in Blood by Automated count 2023-07-09 04:13:51 195 Cell/uL F 0.0-700.0 Neutrophils [#/volume] in Blood by Automated count 2023-07-09 04:13:51 9792 Cell/uL F 2000.0-8800.0 Neutrophils/100 leukocytes in Blood by Automated count 2023-07-09 04:13:47 80.2 % F Monocytes/100 leukocytes in Blood by Automated count 2023-07-09 04:13:47 4.8 % F Eosinophils/100 leukocytes in Blood by Automated count 2023-07-09 04:13:47 1.6 % F Basophils/100 leukocytes in Blood by Automated count 2023-07-09 04:13:47 0.4 % F Eosinophils/100 leukocytes in Blood by Automated count 2023-06-09 17:49:46 2 % F Neutrophils/100 leukocytes in Blood by Automated count 2023-06-09 17:49:46 79.5 % F Monocytes/100 leukocytes in Blood by Automated count 2023-06-09 17:49:46 5.6 % F Lymphocytes/100 leukocytes in Blood by Automated count 2023-06-09 17:49:46 12.6 % F Basophils/100 leukocytes in Blood by Automated count 2023-06-09 17:49:46 0.3 % F Monocytes [#/volume] in Blood by Automated count 2023-06-09 17:49:46 745 Cell/uL F 0.0-1100.0 Basophils [#/volume] in Blood by Automated count 2023-06-09 17:49:46 40 Cell/uL F 0.0-400.0 Eosinophils [#/volume] in Blood by Automated count 2023-06-09 17:49:46 266 Cell/uL F 0.0-700.0 Neutrophils [#/volume] in Blood by Automated count 2023-06-09 17:49:46 85153 Cell/uL F 2000.0-8800.0 Leukocytes [#/volume] in Blood by Automated count 2023-06-09 17:49:46 13.3 x 10^3 cells/uL F 4.0-11.0 Lymphocytes [#/volume] in Blood by Automated count 2023-06-09 17:49:46 1677 Cell/uL F 620.0-3660.0 Eosinophils/100 leukocytes in Blood by Automated count 2023-05-12 17:18:40 1.8 % F Neutrophils/100 leukocytes in Blood by Automated count 2023-05-12 17:18:40 77.8 % F Basophils/100 leukocytes in Blood by Automated count 2023-05-12 17:18:40 0.3 % F Monocytes/100 leukocytes in Blood by Automated count 2023-05-12 17:18:40 6.6 % F Eosinophils [#/volume] in Blood by Automated count 2023-05-12 17:18:40 231 Cell/uL F 0.0-700.0 Lymphocytes/100 leukocytes in Blood by Automated count 2023-05-12 17:18:38 13.6 % F Monocytes [#/volume] in Blood by Automated count 2023-05-12 17:18:38 848 Cell/uL F 0.0-1100.0 Basophils [#/volume] in Blood by Automated count 2023-05-12 17:18:38 39 Cell/uL F 0.0-400.0 Neutrophils [#/volume] in Blood by Automated count 2023-05-12 17:18:38 9997 Cell/uL F 2000.0-8800.0 Leukocytes [#/volume] in Blood by Automated count 2023-05-12 17:18:38 12.8 x 10^3 cells/uL F 4.0-11.0 Lymphocytes [#/volume] in Blood by Automated count 2023-05-12 17:18:38 1748 Cell/uL F 620.0-3660.0 Basophils/100 leukocytes in Blood by Automated count 2023-04-09 21:39:36 0.4 % F Eosinophils/100 leukocytes in Blood by Automated count 2023-04-09 21:39:36 2.6 % F Lymphocytes/100 leukocytes in Blood by Automated count 2023-04-09 21:39:36 18.9 % F Neutrophils/100 leukocytes in Blood by Automated count 2023-04-09 21:39:36 72.5 % F Monocytes [#/volume] in Blood by Automated count 2023-04-09 21:39:36 590 Cell/uL F 0.0-1100.0 Monocytes/100 leukocytes in Blood by Automated count 2023-04-09 21:39:36 5.6 % F Basophils [#/volume] in Blood by Automated count 2023-04-09 21:39:36 42 Cell/uL F 0.0-400.0 Eosinophils [#/volume] in Blood by Automated count 2023-04-09 21:39:36 274 Cell/uL F 0.0-700.0 Neutrophils [#/volume] in Blood by Automated count 2023-04-09 21:39:36 7642 Cell/uL F 2000.0-8800.0 Leukocytes [#/volume] in Blood by Automated count 2023-04-09 21:39:36 10.5 x 10^3 cells/uL F 4.0-11.0 Lymphocytes [#/volume] in Blood by Automated count 2023-04-09 21:39:36 1992 Cell/uL F 620.0-3660.0 Basophils/100 leukocytes in Blood by Automated count 2023-03-11 19:12:44 0.8 % F Monocytes/100 leukocytes in Blood by Automated count 2023-03-11 19:12:44 7.9 % F Eosinophils/100 leukocytes in Blood by Automated count 2023-03-11 19:12:44 2.6 % F Lymphocytes/100 leukocytes in Blood by Automated count 2023-03-11 19:12:44 15.3 % F Neutrophils/100 leukocytes in Blood by Automated count 2023-03-11 19:12:44 73.3 % F Basophils [#/volume] in Blood by Automated count 2023-03-11 19:12:44 80 Cell/uL F 0.0-400.0 Monocytes [#/volume] in Blood by Automated count 2023-03-11 19:12:44 785 Cell/uL F 0.0-1100.0 Eosinophils [#/volume] in Blood by Automated count 2023-03-11 19:12:44 258 Cell/uL F 0.0-700.0 Neutrophils [#/volume] in Blood by Automated count 2023-03-11 19:12:44 7286 Cell/uL F 2000.0-8800.0 Leukocytes [#/volume] in Blood by Automated count 2023-03-11 19:12:44 9.9 x 10^3 cells/uL F 4.0-11.0 Lymphocytes [#/volume] in Blood by Automated count 2023-03-11 19:12:44 1521 Cell/uL F 620.0-3660.0 Monocytes/100 leukocytes in Blood by Automated count 2023-02-06 14:38:34 4.4 % F Basophils/100 leukocytes in Blood by Automated count 2023-02-06 14:38:34 0.2 % F Lymphocytes/100 leukocytes in Blood by Automated count 2023-02-06 14:38:34 9 % F Neutrophils/100 leukocytes in Blood by Automated count 2023-02-06 14:38:34 82.2 % F Eosinophils/100 leukocytes in Blood by Automated count 2023-02-06 14:38:34 4.1 % F Basophils [#/volume] in Blood by Automated count 2023-02-06 14:38:34 21 Cell/uL F 0.0-400.0 Monocytes [#/volume] in Blood by Automated count 2023-02-06 14:38:34 472 Cell/uL F 0.0-1100.0 Eosinophils [#/volume] in Blood by Automated count 2023-02-06 14:38:34 440 Cell/uL F 0.0-700.0 Neutrophils [#/volume] in Blood by Automated count 2023-02-06 14:38:34 8812 Cell/uL F 2000.0-8800.0 Leukocytes [#/volume] in Blood by Automated count 2023-02-06 14:38:34 10.7 x 10^3 cells/uL F 4.0-11.0 Lymphocytes [#/volume] in Blood by Automated count 2023-02-06 14:38:34 965 Cell/uL F 620.0-3660.0 Eosinophils/100 leukocytes in Blood by Automated count 2022-12-23 21:46:16 2.4 % F Basophils/100 leukocytes in Blood by Automated count 2022-12-23 21:46:16 0.4 % F Neutrophils/100 leukocytes in Blood by Automated count 2022-12-23 21:46:16 74.4 % F Lymphocytes/100 leukocytes in Blood by Automated count 2022-12-23 21:46:16 16.5 % F Monocytes/100 leukocytes in Blood by Automated count 2022-12-23 21:46:16 6.4 % F Monocytes [#/volume] in Blood by Automated count 2022-12-23 21:46:16 523 Cell/uL F 0.0-1100.0 Basophils [#/volume] in Blood by Automated count 2022-12-23 21:46:16 33 Cell/uL F 0.0-400.0 Eosinophils [#/volume] in Blood by Automated count 2022-12-23 21:46:16 196 Cell/uL F 0.0-700.0 Neutrophils [#/volume] in Blood by Automated count 2022-12-23 21:46:16 6078 Cell/uL F 2000.0-8800.0 Leukocytes [#/volume] in Blood by Automated count 2022-12-23 21:46:16 8.2 x 10^3 cells/uL F 4.0-11.0 Lymphocytes [#/volume] in Blood by Automated count 2022-12-23 21:46:16 1348 Cell/uL F 620.0-3660.0 Basophils [#/volume] in Blood by Automated count 2022-10-20 07:07:02 F Canceled - Specimen not received 5 days past draw date Lymphocytes [#/volume] in Blood by Automated count 2022-10-20 07:07:02 F Canceled - Specimen not received 5 days past draw date Eosinophils/100 leukocytes in Blood by Automated count 2022-10-20 07:07:02 F Canceled - Specimen not received 5 days past draw date Eosinophils [#/volume] in Blood by Automated count 2022-10-20 07:07:02 F Canceled - Specimen not received 5 days past draw date Neutrophils [#/volume] in Blood by Automated count 2022-10-20 07:07:02 F Canceled - Specimen not received 5 days past draw date Monocytes/100 leukocytes in Blood by Automated count 2022-10-20 07:07:02 F Canceled - Specimen not received 5 days past draw date Monocytes [#/volume] in Blood by Automated count 2022-10-20 07:07:02 F Canceled - Specimen not received 5 days past draw date Neutrophils/100 leukocytes in Blood by Automated count 2022-10-20 07:07:02 F Canceled - Specimen not received 5 days past draw date Leukocytes [#/volume] in Blood by Automated count 2022-10-20 07:07:02 F Canceled - Specimen not received 5 days past draw date Lymphocytes/100 leukocytes in Blood by Automated count 2022-10-20 07:07:02 F Canceled - Specimen not received 5 days past draw date Basophils/100 leukocytes in Blood by Automated count 2022-10-20 07:07:02 F Canceled - Specimen not received 5 days past draw date Lymphocytes/100 leukocytes in Blood by Automated count 2022-06-20 20:59:37 17.9 % F Monocytes [#/volume] in Blood by Automated count 2022-06-20 20:59:37 624.64 Cell/uL F 0.0-1100.0 Basophils [#/volume] in Blood by Automated count 2022-06-20 20:59:37 51.2 Cell/uL F 0.0-400.0 Eosinophils [#/volume] in Blood by Automated count 2022-06-20 20:59:37 399.36 Cell/uL F 0.0-700.0 Lymphocytes [#/volume] in Blood by Automated count 2022-06-20 20:59:37 1832.96 Cell/uL F 1100.0-4800.0 Leukocytes [#/volume] in Blood by Automated count 2022-06-20 20:59:37 10.2 x 10^3 cells/uL F 4.5-11.0 Neutrophils/100 leukocytes in Blood by Automated count 2022-06-20 20:59:35 71.6 % F Basophils/100 leukocytes in Blood by Automated count 2022-06-20 20:59:35 0.5 % F Eosinophils/100 leukocytes in Blood by Automated count 2022-06-20 20:59:35 3.9 % F Monocytes/100 leukocytes in Blood by Automated count 2022-06-20 20:59:35 6.1 % F Neutrophils [#/volume] in Blood by Automated count 2022-06-20 20:59:35 7331.84 Cell/uL F 2000.0-8800.0 Phosphate [Mass/volume] in Urine MineralBone Disorder Description Draw Date Result/Unit Status Ref Range Result Comments CA CORRECTED 2025-03-13 21:14:16 8.2 mg/dL F CA/PHOS PRODUCT 2025-03-13 21:09:36 36 Calc F 21.0-53.0 CA*PO4 CORRCTD 2025-03-13 21:09:36 36.7 Calc F 21.0-53.0 Calcium [Mass/volume] in Serum or Plasma 2025-03-13 20:50:06 8 mg/dL F 8.7-10.4 Alkaline phosphatase [Enzymatic activity/volume] in Serum or Plasma 2025-03-12 03:30:19 107 U/L F 46.0-116.0 Phosphate [Mass/volume] in Serum or Plasma 2025-03-12 03:30:19 4.5 mg/dL F 2.4-5.1 Magnesium [Mass/volume] in Serum or Plasma 2025-03-12 03:30:19 1 mg/dL F 1.6-2.6 Parathyrin.intact [Mass/volume] in Serum or Plasma 2025-03-12 00:19:16 448 pg/mL F 18.0-80.0 Parathyrin.intact [Mass/volume] in Serum or Plasma 2025-02-09 17:02:26 333 pg/mL F 18.0-80.0 CA CORRECTED 2025-02-09 16:52:03 9 mg/dL F CA/PHOS PRODUCT 2025-02-09 16:50:06 37.4 Calc F 21.0-53.0 CA*PO4 CORRCTD 2025-02-09 16:50:06 37.7 Calc F 21.0-53.0 Calcium [Mass/volume] in Serum or Plasma 2025-02-09 16:45:27 8.9 mg/dL F 8.7-10.4 Alkaline phosphatase [Enzymatic activity/volume] in Serum or Plasma 2025-02-09 14:28:22 118 U/L F 46.0-116.0 Phosphate [Mass/volume] in Serum or Plasma 2025-02-09 14:28:22 4.2 mg/dL F 2.4-5.1 Magnesium [Mass/volume] in Serum or Plasma 2025-02-09 14:28:22 1.1 mg/dL F 1.6-2.6 CA CORRECTED 2025-01-11 07:18:12 9 mg/dL F CA CORRECTED 2025-01-11 07:18:12 9 mg/dL F CA CORRECTED 2025-01-11 07:18:12 9 mg/dL F CA*PO4 CORRCTD 2025-01-11 07:15:19 44.2 Calc F 21.0-53.0 CA/PHOS PRODUCT 2025-01-11 07:15:19 42.6 Calc F 21.0-53.0 CA*PO4 CORRCTD 2025-01-11 07:15:19 44.2 Calc F 21.0-53.0 CA/PHOS PRODUCT 2025-01-11 07:15:19 42.6 Calc F 21.0-53.0 CA/PHOS PRODUCT 2025-01-11 07:15:19 42.6 Calc F 21.0-53.0 CA*PO4 CORRCTD 2025-01-11 07:15:19 44.2 Calc F 21.0-53.0 Calcium [Mass/volume] in Serum or Plasma 2025-01-11 07:09:08 8.7 mg/dL F 8.7-10.4 Calcium [Mass/volume] in Serum or Plasma 2025-01-11 07:09:08 8.7 mg/dL F 8.7-10.4 Calcium [Mass/volume] in Serum or Plasma 2025-01-11 07:09:08 8.7 mg/dL F 8.7-10.4 25-Hydroxyvitamin D3+25-Hydroxyvitamin D2 [Mass/volume] in Serum or Plasma 2025-01-10 23:31:25 77.4 ng/mL F 25-Hydroxyvitamin D3+25-Hydroxyvitamin D2 [Mass/volume] in Serum or Plasma 2025-01-10 23:31:25 77.4 ng/mL F 25-Hydroxyvitamin D3+25-Hydroxyvitamin D2 [Mass/volume] in Serum or Plasma 2025-01-10 23:31:25 77.4 ng/mL F Parathyrin.intact [Mass/volume] in Serum or Plasma 2025-01-10 21:15:20 392 pg/mL F 18.0-80.0 Parathyrin.intact [Mass/volume] in Serum or Plasma 2025-01-10 21:15:20 392 pg/mL F 18.0-80.0 Parathyrin.intact [Mass/volume] in Serum or Plasma 2025-01-10 21:15:20 392 pg/mL F 18.0-80.0 Magnesium [Mass/volume] in Serum or Plasma 2025-01-10 20:21:16 1.1 mg/dL F 1.6-2.6 Phosphate [Mass/volume] in Serum or Plasma 2025-01-10 20:21:16 4.9 mg/dL F 2.4-5.1 Alkaline phosphatase [Enzymatic activity/volume] in Serum or Plasma 2025-01-10 20:21:16 102 U/L F 46.0-116.0 Phosphate [Mass/volume] in Serum or Plasma 2025-01-10 20:21:16 4.9 mg/dL F 2.4-5.1 Magnesium [Mass/volume] in Serum or Plasma 2025-01-10 20:21:16 1.1 mg/dL F 1.6-2.6 Alkaline phosphatase [Enzymatic activity/volume] in Serum or Plasma 2025-01-10 20:21:16 102 U/L F 46.0-116.0 Alkaline phosphatase [Enzymatic activity/volume] in Serum or Plasma 2025-01-10 20:21:16 102 U/L F 46.0-116.0 Phosphate [Mass/volume] in Serum or Plasma 2025-01-10 20:21:16 4.9 mg/dL F 2.4-5.1 Magnesium [Mass/volume] in Serum or Plasma 2025-01-10 20:21:16 1.1 mg/dL F 1.6-2.6 CA CORRECTED 2024-12-10 07:27:25 7.7 mg/dL F CA CORRECTED 2024-12-10 07:27:25 7.7 mg/dL F CA*PO4 CORRCTD 2024-12-10 07:24:50 42.6 Calc F 21.0-53.0 CA/PHOS PRODUCT 2024-12-10 07:24:50 41.3 Calc F 21.0-53.0 CA*PO4 CORRCTD 2024-12-10 07:24:50 42.6 Calc F 21.0-53.0 CA/PHOS PRODUCT 2024-12-10 07:24:50 41.3 Calc F 21.0-53.0 Calcium [Mass/volume] in Serum or Plasma 2024-12-10 07:07:46 7.5 mg/dL F 8.7-10.4 Calcium [Mass/volume] in Serum or Plasma 2024-12-10 07:07:46 7.5 mg/dL F 8.7-10.4 Parathyrin.intact [Mass/volume] in Serum or Plasma 2024-12-09 22:31:23 430 pg/mL F 18.0-80.0 Parathyrin.intact [Mass/volume] in Serum or Plasma 2024-12-09 22:31:23 430 pg/mL F 18.0-80.0 Magnesium [Mass/volume] in Serum or Plasma 2024-12-09 16:27:13 1 mg/dL F 1.6-2.6 Phosphate [Mass/volume] in Serum or Plasma 2024-12-09 16:27:13 5.5 mg/dL F 2.4-5.1 Alkaline phosphatase [Enzymatic activity/volume] in Serum or Plasma 2024-12-09 16:27:13 98 U/L F 46.0-116.0 Magnesium [Mass/volume] in Serum or Plasma 2024-12-09 16:27:13 1 mg/dL F 1.6-2.6 Phosphate [Mass/volume] in Serum or Plasma 2024-12-09 16:27:13 5.5 mg/dL F 2.4-5.1 Alkaline phosphatase [Enzymatic activity/volume] in Serum or Plasma 2024-12-09 16:27:13 98 U/L F 46.0-116.0 CA CORRECTED 2024-11-12 18:30:49 8.3 mg/dL F CA CORRECTED 2024-11-12 18:30:49 8.3 mg/dL F CA*PO4 CORRCTD 2024-11-12 18:27:48 43 Calc F 21.0-53.0 CA/PHOS PRODUCT 2024-11-12 18:27:48 42.1 Calc F 21.0-53.0 CA*PO4 CORRCTD 2024-11-12 18:27:48 43 Calc F 21.0-53.0 CA/PHOS PRODUCT 2024-11-12 18:27:48 42.1 Calc F 21.0-53.0 Calcium [Mass/volume] in Serum or Plasma 2024-11-12 18:24:03 8.1 mg/dL F 8.7-10.4 Phosphate [Mass/volume] in Serum or Plasma 2024-11-12 18:24:03 5.2 mg/dL F 2.4-5.1 Phosphate [Mass/volume] in Serum or Plasma 2024-11-12 18:24:03 5.2 mg/dL F 2.4-5.1 Calcium [Mass/volume] in Serum or Plasma 2024-11-12 18:24:03 8.1 mg/dL F 8.7-10.4 Alkaline phosphatase [Enzymatic activity/volume] in Serum or Plasma 2024-11-12 17:01:10 110 U/L F 46.0-116.0 Magnesium [Mass/volume] in Serum or Plasma 2024-11-12 17:01:10 1.1 mg/dL F 1.3-2.7 Magnesium [Mass/volume] in Serum or Plasma 2024-11-12 17:01:10 1.1 mg/dL F 1.3-2.7 Alkaline phosphatase [Enzymatic activity/volume] in Serum or Plasma 2024-11-12 17:01:10 110 U/L F 46.0-116.0 CA CORRECTED 2024-10-12 08:21:42 8.2 mg/dL F CA/PHOS PRODUCT 2024-10-12 08:19:22 40.5 Calc F 21.0-53.0 CA*PO4 CORRCTD 2024-10-12 08:19:22 40.9 Calc F 21.0-53.0 Calcium [Mass/volume] in Serum or Plasma 2024-10-12 07:36:28 8.1 mg/dL F 8.7-10.4 Phosphate [Mass/volume] in Serum or Plasma 2024-10-12 07:36:20 5 mg/dL F 2.4-5.1 25-Hydroxyvitamin D3+25-Hydroxyvitamin D2 [Mass/volume] in Serum or Plasma 2024-10-11 21:14:40 75 ng/mL F Parathyrin.intact [Mass/volume] in Serum or Plasma 2024-10-11 15:50:25 438 pg/mL F 18.0-80.0 Magnesium [Mass/volume] in Serum or Plasma 2024-10-11 14:39:24 1.1 mg/dL F 1.3-2.7 Alkaline phosphatase [Enzymatic activity/volume] in Serum or Plasma 2024-10-11 14:39:24 110 U/L F 46.0-116.0 CA CORRECTED 2024-09-24 00:15:11 8.4 mg/dL F CA*PO4 CORRCTD 2024-09-24 00:14:02 41 Calc F 21.0-53.0 CA/PHOS PRODUCT 2024-09-24 00:14:02 40.2 Calc F 21.0-53.0 Phosphate [Mass/volume] in Serum or Plasma 2024-09-24 00:03:43 4.9 mg/dL F 2.4-5.1 Calcium [Mass/volume] in Serum or Plasma 2024-09-24 00:03:43 8.2 mg/dL F 8.7-10.4 Magnesium [Mass/volume] in Serum or Plasma 2024-09-23 17:56:18 1.3 mg/dL F 1.3-2.7 Alkaline phosphatase [Enzymatic activity/volume] in Serum or Plasma 2024-09-23 17:56:18 104 U/L F 46.0-116.0 Parathyrin.intact [Mass/volume] in Serum or Plasma 2024-09-13 15:15:23 391 pg/mL F 18.0-80.0 CA CORRECTED 2024-08-11 07:58:33 8.7 mg/dL F CA/PHOS PRODUCT 2024-08-11 07:56:41 47.9 Calc F 21.0-53.0 CA*PO4 CORRCTD 2024-08-11 07:56:41 47.9 Calc F 21.0-53.0 25-Hydroxyvitamin D3+25-Hydroxyvitamin D2 [Mass/volume] in Serum or Plasma 2024-08-11 06:51:30 53.1 ng/mL F Phosphate [Mass/volume] in Serum or Plasma 2024-08-11 06:34:28 5.5 mg/dL F 2.4-5.1 Calcium [Mass/volume] in Serum or Plasma 2024-08-11 06:34:28 8.7 mg/dL F 8.7-10.4 Parathyrin.intact [Mass/volume] in Serum or Plasma 2024-08-10 16:17:24 466 pg/mL F 18.0-80.0 Magnesium [Mass/volume] in Serum or Plasma 2024-08-10 15:30:22 1.7 mg/dL F 1.3-2.7 Alkaline phosphatase [Enzymatic activity/volume] in Serum or Plasma 2024-08-10 15:30:22 120 U/L F 46.0-116.0 25-Hydroxyvitamin D3+25-Hydroxyvitamin D2 [Mass/volume] in Serum or Plasma 2024-07-16 08:03:37 33 ng/mL F CA CORRECTED 2024-07-15 21:59:44 8.1 mg/dL F CA*PO4 CORRCTD 2024-07-15 21:58:36 36.6 Calc F 21.0-53.0 CA/PHOS PRODUCT 2024-07-15 21:58:36 35.6 Calc F 21.0-53.0 Phosphate [Mass/volume] in Serum or Plasma 2024-07-15 20:51:02 4.5 mg/dL F 2.4-5.1 Calcium [Mass/volume] in Serum or Plasma 2024-07-15 20:51:02 7.9 mg/dL F 8.7-10.4 Parathyrin.intact [Mass/volume] in Serum or Plasma 2024-07-15 18:16:21 406 pg/mL F 18.0-80.0 Magnesium [Mass/volume] in Serum or Plasma 2024-07-15 16:00:22 1.5 mg/dL F 1.3-2.7 Alkaline phosphatase [Enzymatic activity/volume] in Serum or Plasma 2024-07-15 16:00:22 102 U/L F 46.0-116.0 CA CORRECTED 2023-12-16 07:24:36 8.3 mg/dL F CA*PO4 CORRCTD 2023-12-16 07:16:27 40.7 Calc F 21.0-53.0 CA/PHOS PRODUCT 2023-12-16 07:16:27 36.8 Calc F 21.0-53.0 Calcium [Mass/volume] in Serum or Plasma 2023-12-16 06:54:01 7.5 mg/dL F 8.7-10.4 Parathyrin.intact [Mass/volume] in Serum or Plasma 2023-12-16 06:12:01 376 pg/mL F 18.0-80.0 Magnesium [Mass/volume] in Serum or Plasma 2023-12-16 01:00:39 1.4 mg/dL F 1.3-2.7 Phosphate [Mass/volume] in Serum or Plasma 2023-12-16 01:00:39 4.9 mg/dL F 2.4-5.1 Alkaline phosphatase [Enzymatic activity/volume] in Serum or Plasma 2023-12-16 01:00:39 99 U/L F 46.0-116.0 Parathyrin.intact [Mass/volume] in Serum or Plasma 2023-11-07 04:11:34 282 pg/mL F 18.0-80.0 CA CORRECTED 2023-11-06 16:26:42 8.3 mg/dL F CA/PHOS PRODUCT 2023-11-06 16:24:22 35.9 Calc F 21.0-53.0 CA*PO4 CORRCTD 2023-11-06 16:24:22 38.2 Calc F 21.0-53.0 Calcium [Mass/volume] in Serum or Plasma 2023-11-06 16:23:06 7.8 mg/dL F 8.7-10.4 Magnesium [Mass/volume] in Serum or Plasma 2023-11-06 14:18:39 1 mg/dL F 1.3-2.7 Phosphate [Mass/volume] in Serum or Plasma 2023-11-06 14:18:39 4.6 mg/dL F 2.4-5.1 Alkaline phosphatase [Enzymatic activity/volume] in Serum or Plasma 2023-11-06 14:18:39 96 U/L F 46.0-116.0 CA CORRECTED 2023-10-09 16:23:13 9.3 mg/dL F CA/PHOS PRODUCT 2023-10-09 16:18:25 46.4 Calc F 21.0-53.0 CA*PO4 CORRCTD 2023-10-09 16:18:25 47.4 Calc F 21.0-53.0 Calcium [Mass/volume] in Serum or Plasma 2023-10-09 16:18:06 9.1 mg/dL F 8.7-10.4 Magnesium [Mass/volume] in Serum or Plasma 2023-10-09 14:53:39 1.9 mg/dL F 1.3-2.7 Phosphate [Mass/volume] in Serum or Plasma 2023-10-09 14:53:39 5.1 mg/dL F 2.4-5.1 Alkaline phosphatase [Enzymatic activity/volume] in Serum or Plasma 2023-10-09 14:53:39 93 U/L F 46.0-116.0 Parathyrin.intact [Mass/volume] in Serum or Plasma 2023-10-09 06:51:25 347 pg/mL F 18.0-80.0 25-Hydroxyvitamin D3+25-Hydroxyvitamin D2 [Mass/volume] in Serum or Plasma 2023-10-09 05:12:14 37.7 ng/mL F CA CORRECTED 2023-09-12 09:47:44 8.9 mg/dL F CA*PO4 CORRCTD 2023-09-12 09:08:52 48.1 Calc F 21.0-53.0 CA/PHOS PRODUCT 2023-09-12 09:08:52 47 Calc F 21.0-53.0 Calcium [Mass/volume] in Serum or Plasma 2023-09-12 09:06:25 8.7 mg/dL F 8.7-10.4 Parathyrin.intact [Mass/volume] in Serum or Plasma 2023-09-12 08:02:38 338 pg/mL F 18.0-80.0 Magnesium [Mass/volume] in Serum or Plasma 2023-09-12 06:30:59 2.3 mg/dL F 1.3-2.7 Phosphate [Mass/volume] in Serum or Plasma 2023-09-12 06:30:59 5.4 mg/dL F 2.4-5.1 Alkaline phosphatase [Enzymatic activity/volume] in Serum or Plasma 2023-09-12 06:30:59 112 U/L F 46.0-116.0 Parathyrin.intact [Mass/volume] in Serum or Plasma 2023-08-13 19:41:24 334 pg/mL F 18.0-80.0 CA CORRECTED 2023-08-13 05:09:18 8.4 mg/dL F CA/PHOS PRODUCT 2023-08-13 05:00:42 45.1 Calc F 21.0-53.0 CA*PO4 CORRCTD 2023-08-13 05:00:42 46.2 Calc F 21.0-53.0 Calcium [Mass/volume] in Serum or Plasma 2023-08-13 04:55:59 8.2 mg/dL F 8.7-10.4 Magnesium [Mass/volume] in Serum or Plasma 2023-08-12 20:43:14 1.4 mg/dL F 1.3-2.7 Alkaline phosphatase [Enzymatic activity/volume] in Serum or Plasma 2023-08-12 20:43:14 102 U/L F 46.0-116.0 Phosphate [Mass/volume] in Serum or Plasma 2023-08-12 20:43:12 5.5 mg/dL F 2.4-5.1 25-Hydroxyvitamin D3+25-Hydroxyvitamin D2 [Mass/volume] in Serum or Plasma 2023-07-09 05:17:29 31.5 ng/mL F Parathyrin.intact [Mass/volume] in Serum or Plasma 2023-07-09 04:58:38 294 pg/mL F 18.0-80.0 CA CORRECTED 2023-07-09 02:58:34 9 mg/dL F CA/PHOS PRODUCT 2023-07-09 02:50:30 52.2 Calc F 21.0-53.0 CA*PO4 CORRCTD 2023-07-09 02:50:30 52.2 Calc F 21.0-53.0 Calcium [Mass/volume] in Serum or Plasma 2023-07-09 02:48:48 9 mg/dL F 8.7-10.4 Magnesium [Mass/volume] in Serum or Plasma 2023-07-08 23:12:44 1.9 mg/dL F 1.3-2.7 Phosphate [Mass/volume] in Serum or Plasma 2023-07-08 23:12:44 5.8 mg/dL F 2.4-5.1 Alkaline phosphatase [Enzymatic activity/volume] in Serum or Plasma 2023-07-08 23:12:44 118 U/L F 46.0-116.0 Parathyrin.intact [Mass/volume] in Serum or Plasma 2023-06-10 07:52:48 384 pg/mL F 18.0-80.0 CA CORRECTED 2023-06-10 06:47:16 8.9 mg/dL F CA/PHOS PRODUCT 2023-06-10 06:38:41 44.4 Calc F 21.0-53.0 CA*PO4 CORRCTD 2023-06-10 06:38:41 45.4 Calc F 21.0-53.0 Calcium [Mass/volume] in Serum or Plasma 2023-06-10 06:33:57 8.7 mg/dL F 8.7-10.4 Magnesium [Mass/volume] in Serum or Plasma 2023-06-10 00:00:41 1.9 mg/dL F 1.3-2.7 Phosphate [Mass/volume] in Serum or Plasma 2023-06-10 00:00:41 5.1 mg/dL F 2.4-5.1 Alkaline phosphatase [Enzymatic activity/volume] in Serum or Plasma 2023-06-10 00:00:41 116 U/L F 46.0-116.0 CA CORRECTED 2023-05-13 09:19:34 9.3 mg/dL F CA*PO4 CORRCTD 2023-05-13 08:52:10 42.8 Calc F 21.0-53.0 CA/PHOS PRODUCT 2023-05-13 08:52:10 41.4 Calc F 21.0-53.0 Calcium [Mass/volume] in Serum or Plasma 2023-05-13 08:48:34 9 mg/dL F 8.7-10.4 Parathyrin.intact [Mass/volume] in Serum or Plasma 2023-05-13 07:50:58 179 pg/mL F 18.0-80.0 25-Hydroxyvitamin D3+25-Hydroxyvitamin D2 [Mass/volume] in Serum or Plasma 2023-05-13 03:15:29 25.1 ng/mL F Magnesium [Mass/volume] in Serum or Plasma 2023-05-12 16:23:38 2 mg/dL F 1.3-2.7 Phosphate [Mass/volume] in Serum or Plasma 2023-05-12 16:23:38 4.6 mg/dL F 2.4-5.1 Alkaline phosphatase [Enzymatic activity/volume] in Serum or Plasma 2023-05-12 16:23:38 119 U/L F 46.0-116.0 CA CORRECTED 2023-04-10 09:08:20 9 mg/dL F CA/PHOS PRODUCT 2023-04-10 07:37:15 44.9 Calc F 21.0-53.0 CA*PO4 CORRCTD 2023-04-10 07:37:15 45.9 Calc F 21.0-53.0 Calcium [Mass/volume] in Serum or Plasma 2023-04-10 07:29:18 8.8 mg/dL F 8.7-10.4 Parathyrin.intact [Mass/volume] in Serum or Plasma 2023-04-09 19:59:01 192 pg/mL F 18.0-80.0 Magnesium [Mass/volume] in Serum or Plasma 2023-04-09 17:51:38 1.7 mg/dL F 1.3-2.7 Phosphate [Mass/volume] in Serum or Plasma 2023-04-09 17:51:38 5.1 mg/dL F 2.4-5.1 Alkaline phosphatase [Enzymatic activity/volume] in Serum or Plasma 2023-04-09 17:51:38 136 U/L F 46.0-116.0 CA CORRECTED 2023-03-12 07:09:04 8.9 mg/dL F CA/PHOS PRODUCT 2023-03-12 05:58:07 33.6 Calc F 21.0-53.0 CA*PO4 CORRCTD 2023-03-12 05:58:07 35.6 Calc F 21.0-53.0 Calcium [Mass/volume] in Serum or Plasma 2023-03-12 05:49:49 8.4 mg/dL F 8.7-10.4 Magnesium [Mass/volume] in Serum or Plasma 2023-03-12 01:47:36 1.5 mg/dL F 1.3-2.7 Phosphate [Mass/volume] in Serum or Plasma 2023-03-12 01:47:36 4 mg/dL F 2.4-5.1 Alkaline phosphatase [Enzymatic activity/volume] in Serum or Plasma 2023-03-12 01:47:36 109 U/L F 46.0-116.0 Parathyrin.intact [Mass/volume] in Serum or Plasma 2023-03-11 19:37:56 248 pg/mL F 18.0-80.0 Parathyrin.intact [Mass/volume] in Serum or Plasma 2023-02-06 21:32:26 215 pg/mL F 18.0-80.0 CA CORRECTED 2023-02-06 17:19:39 8.7 mg/dL F CA*PO4 CORRCTD 2023-02-06 17:13:13 35.7 Calc F 21.0-53.0 CA/PHOS PRODUCT 2023-02-06 17:13:13 34.9 Calc F 21.0-53.0 Calcium [Mass/volume] in Serum or Plasma 2023-02-06 17:10:51 8.5 mg/dL F 8.7-10.4 Magnesium [Mass/volume] in Serum or Plasma 2023-02-06 14:45:27 2.1 mg/dL F 1.3-2.7 Phosphate [Mass/volume] in Serum or Plasma 2023-02-06 14:45:27 4.1 mg/dL F 2.4-5.1 Alkaline phosphatase [Enzymatic activity/volume] in Serum or Plasma 2023-02-06 14:45:27 127 U/L F 46.0-116.0 CA CORRECTED 2022-12-24 03:12:40 8.8 mg/dL F CA/PHOS PRODUCT 2022-12-24 02:54:43 37 Calc F 21.0-53.0 CA*PO4 CORRCTD 2022-12-24 02:54:43 37.8 Calc F 21.0-53.0 Calcium [Mass/volume] in Serum or Plasma 2022-12-24 02:49:17 8.6 mg/dL F 8.7-10.4 25-Hydroxyvitamin D3+25-Hydroxyvitamin D2 [Mass/volume] in Serum or Plasma 2022-12-23 16:46:19 31.7 ng/mL F Magnesium [Mass/volume] in Serum or Plasma 2022-12-23 16:01:14 1.8 mg/dL F 1.3-2.7 Phosphate [Mass/volume] in Serum or Plasma 2022-12-23 16:01:14 4.3 mg/dL F 2.4-5.1 Alkaline phosphatase [Enzymatic activity/volume] in Serum or Plasma 2022-12-23 16:01:14 122 U/L F 46.0-116.0 CA CORRECTED 2022-10-17 04:28:34 8.7 mg/dL F CA/PHOS PRODUCT 2022-10-17 04:24:03 43.4 Calc F 21.0-53.0 CA*PO4 CORRCTD 2022-10-17 04:24:03 44.4 Calc F 21.0-53.0 Calcium [Mass/volume] in Serum or Plasma 2022-10-17 04:20:46 8.5 mg/dL F 8.7-10.4 Phosphate [Mass/volume] in Serum or Plasma 2022-10-16 16:53:16 5.1 mg/dL F 2.4-5.1 Alkaline phosphatase [Enzymatic activity/volume] in Serum or Plasma 2022-10-16 16:53:16 115 U/L F 46.0-116.0 25-Hydroxyvitamin D3+25-Hydroxyvitamin D2 [Mass/volume] in Serum or Plasma 2022-10-16 15:15:12 24.7 ng/mL F 30.0-100.0 Parathyrin.intact [Mass/volume] in Serum or Plasma 2022-10-16 14:47:06 317 pg/mL F 18.0-80.0 CA CORRECTED 2022-06-21 08:44:53 8.7 mg/dL F CA/PHOS PRODUCT 2022-06-21 04:28:47 40 Calc F 21.0-53.0 CA*PO4 CORRCTD 2022-06-21 04:28:47 40.9 Calc F 21.0-53.0 Calcium [Mass/volume] in Serum or Plasma 2022-06-21 04:17:22 8.5 mg/dL F 8.7-10.4 Phosphate [Mass/volume] in Serum or Plasma 2022-06-20 20:22:44 4.7 mg/dL F 2.4-5.1 Alkaline phosphatase [Enzymatic activity/volume] in Serum or Plasma 2022-06-20 20:22:44 112 U/L F 46.0-116.0 Parathyrin.intact [Mass/volume] in Serum or Plasma 2022-06-20 20:09:42 141 pg/mL F 18.0-80.0 Nutrition Description Draw Date Result/Unit Status Ref Range Result Comments Potassium [Moles/volume] in Serum or Plasma 2025-03-13 20:50:06 4.2 mEq/L F 3.5-5.1 A/G RATIO 2025-03-12 03:31:21 1.7 Calc F 1.0-2.5 GLOBULIN 2025-03-12 03:31:21 2.3 g/dL F 0.9-5.0 Albumin [Mass/volume] in Serum or Plasma by Bromocresol green (BCG) dye binding method 2025-03-12 03:30:19 3.8 g/dL F 3.2-4.8 Bicarbonate [Moles/volume] in Serum or Plasma 2025-03-12 03:30:19 28 mEq/L F 20.0-31.0 Glucose [Mass/volume] in Serum or Plasma 2025-03-12 03:30:19 227 mg/dL F 74.0-106.0 Lactate dehydrogenase [Enzymatic activity/volume] in Serum or Plasma 2025-03-12 03:30:19 215 U/L F 120.0-246.0 Protein [Mass/volume] in Serum or Plasma 2025-03-12 03:30:19 6.1 g/dL F 5.7-8.2 Potassium [Moles/volume] in Serum or Plasma 2025-02-09 16:45:27 4.2 mEq/L F 3.5-5.1 A/G RATIO 2025-02-09 14:29:37 1.6 Calc F 1.0-2.5 GLOBULIN 2025-02-09 14:29:37 2.5 g/dL F 0.9-5.0 Albumin [Mass/volume] in Serum or Plasma by Bromocresol green (BCG) dye binding method 2025-02-09 14:28:22 3.9 g/dL F 3.2-4.8 Bicarbonate [Moles/volume] in Serum or Plasma 2025-02-09 14:28:22 28 mEq/L F 20.0-31.0 Glucose [Mass/volume] in Serum or Plasma 2025-02-09 14:28:22 288 mg/dL F 74.0-106.0 Lactate dehydrogenase [Enzymatic activity/volume] in Serum or Plasma 2025-02-09 14:28:22 211 U/L F 120.0-246.0 Protein [Mass/volume] in Serum or Plasma 2025-02-09 14:28:22 6.4 g/dL F 5.7-8.2 Potassium [Moles/volume] in Serum or Plasma 2025-01-11 07:09:08 6.3 mEq/L F 3.5-5.1 Potassium [Moles/volume] in Serum or Plasma 2025-01-11 07:09:08 6.3 mEq/L F 3.5-5.1 Potassium [Moles/volume] in Serum or Plasma 2025-01-11 07:09:08 6.3 mEq/L F 3.5-5.1 VLDL-CHOL(CALC) 2025-01-10 20:31:23 see comments F 0.0-29.0 Unable to report when Triglycerides >400Unable to Calculate.,Unable to Calculate.Unable to report when Triglycerides >400 LDL-CHOLESTEROL 2025-01-10 20:31:23 see comments F 0.0-99.0 Unable to report when Triglycerides >400Unable to Calculate.,Unable to Calculate.Unable to report when Triglycerides >400 LDL-CHOLESTEROL 2025-01-10 20:31:23 see comments F 0.0-99.0 Unable to report when Triglycerides >400Unable to Calculate.,Unable to Calculate.Unable to report when Triglycerides >400 VLDL-CHOL(CALC) 2025-01-10 20:31:23 see comments F 0.0-29.0 Unable to report when Triglycerides >400Unable to Calculate.,Unable to Calculate.Unable to report when Triglycerides >400 LDL-CHOLESTEROL 2025-01-10 20:31:23 see comments F 0.0-99.0 Unable to report when Triglycerides >400Unable to Calculate.,Unable to Calculate.Unable to report when Triglycerides >400 VLDL-CHOL(CALC) 2025-01-10 20:31:23 see comments F 0.0-29.0 Unable to report when Triglycerides >400Unable to Calculate.,Unable to Calculate.Unable to report when Triglycerides >400 CHOL/HDL RATIO 2025-01-10 20:22:11 5.2 Calc F 3.3-5.0 A/G RATIO 2025-01-10 20:22:11 1.6 Calc F 1.0-2.5 GLOBULIN 2025-01-10 20:22:11 2.2 g/dL F 0.9-5.0 A/G RATIO 2025-01-10 20:22:11 1.6 Calc F 1.0-2.5 GLOBULIN 2025-01-10 20:22:11 2.2 g/dL F 0.9-5.0 CHOL/HDL RATIO 2025-01-10 20:22:11 5.2 Calc F 3.3-5.0 A/G RATIO 2025-01-10 20:22:11 1.6 Calc F 1.0-2.5 GLOBULIN 2025-01-10 20:22:11 2.2 g/dL F 0.9-5.0 CHOL/HDL RATIO 2025-01-10 20:22:11 5.2 Calc F 3.3-5.0 Protein [Mass/volume] in Serum or Plasma 2025-01-10 20:21:16 5.8 g/dL F 5.7-8.2 Bicarbonate [Moles/volume] in Serum or Plasma 2025-01-10 20:21:16 25 mEq/L F 20.0-31.0 Protein [Mass/volume] in Serum or Plasma 2025-01-10 20:21:16 425 mg/dL F 0.0-149.0 Glucose [Mass/volume] in Serum or Plasma 2025-01-10 20:21:16 337 mg/dL F 74.0-106.0 Cholesterol [Mass/volume] in Serum or Plasma 2025-01-10 20:21:16 145 mg/dL F 0.0-199.0 Albumin [Mass/volume] in Serum or Plasma by Bromocresol green (BCG) dye binding method 2025-01-10 20:21:16 3.6 g/dL F 3.2-4.8 Lactate dehydrogenase [Enzymatic activity/volume] in Serum or Plasma 2025-01-10 20:21:16 196 U/L F 120.0-246.0 Cholesterol in HDL [Mass/volume] in Serum or Plasma 2025-01-10 20:21:16 28 mg/dL F 40.0-60.0 Albumin [Mass/volume] in Serum or Plasma by Bromocresol green (BCG) dye binding method 2025-01-10 20:21:16 3.6 g/dL F 3.2-4.8 Cholesterol in HDL [Mass/volume] in Serum or Plasma 2025-01-10 20:21:16 28 mg/dL F 40.0-60.0 Protein [Mass/volume] in Serum or Plasma 2025-01-10 20:21:16 425 mg/dL F 0.0-149.0 Cholesterol [Mass/volume] in Serum or Plasma 2025-01-10 20:21:16 145 mg/dL F 0.0-199.0 Lactate dehydrogenase [Enzymatic activity/volume] in Serum or Plasma 2025-01-10 20:21:16 196 U/L F 120.0-246.0 Bicarbonate [Moles/volume] in Serum or Plasma 2025-01-10 20:21:16 25 mEq/L F 20.0-31.0 Protein [Mass/volume] in Serum or Plasma 2025-01-10 20:21:16 5.8 g/dL F 5.7-8.2 Glucose [Mass/volume] in Serum or Plasma 2025-01-10 20:21:16 337 mg/dL F 74.0-106.0 Albumin [Mass/volume] in Serum or Plasma by Bromocresol green (BCG) dye binding method 2025-01-10 20:21:16 3.6 g/dL F 3.2-4.8 Cholesterol [Mass/volume] in Serum or Plasma 2025-01-10 20:21:16 145 mg/dL F 0.0-199.0 Bicarbonate [Moles/volume] in Serum or Plasma 2025-01-10 20:21:16 25 mEq/L F 20.0-31.0 Glucose [Mass/volume] in Serum or Plasma 2025-01-10 20:21:16 337 mg/dL F 74.0-106.0 Lactate dehydrogenase [Enzymatic activity/volume] in Serum or Plasma 2025-01-10 20:21:16 196 U/L F 120.0-246.0 Protein [Mass/volume] in Serum or Plasma 2025-01-10 20:21:16 425 mg/dL F 0.0-149.0 Protein [Mass/volume] in Serum or Plasma 2025-01-10 20:21:16 5.8 g/dL F 5.7-8.2 Cholesterol in HDL [Mass/volume] in Serum or Plasma 2025-01-10 20:21:16 28 mg/dL F 40.0-60.0 Potassium [Moles/volume] in Serum or Plasma 2024-12-10 07:07:46 5.3 mEq/L F 3.5-5.1 Potassium [Moles/volume] in Serum or Plasma 2024-12-10 07:07:46 5.3 mEq/L F 3.5-5.1 GLOBULIN 2024-12-09 16:27:53 2.4 g/dL F 0.9-5.0 A/G RATIO 2024-12-09 16:27:53 1.5 Calc F 1.0-2.5 GLOBULIN 2024-12-09 16:27:53 2.4 g/dL F 0.9-5.0 A/G RATIO 2024-12-09 16:27:53 1.5 Calc F 1.0-2.5 Lactate dehydrogenase [Enzymatic activity/volume] in Serum or Plasma 2024-12-09 16:27:13 223 U/L F 120.0-246.0 Bicarbonate [Moles/volume] in Serum or Plasma 2024-12-09 16:27:13 25 mEq/L F 20.0-31.0 Albumin [Mass/volume] in Serum or Plasma by Bromocresol green (BCG) dye binding method 2024-12-09 16:27:13 3.7 g/dL F 3.2-4.8 Protein [Mass/volume] in Serum or Plasma 2024-12-09 16:27:13 6.1 g/dL F 5.7-8.2 Glucose [Mass/volume] in Serum or Plasma 2024-12-09 16:27:13 285 mg/dL F 74.0-106.0 Lactate dehydrogenase [Enzymatic activity/volume] in Serum or Plasma 2024-12-09 16:27:13 223 U/L F 120.0-246.0 Bicarbonate [Moles/volume] in Serum or Plasma 2024-12-09 16:27:13 25 mEq/L F 20.0-31.0 Albumin [Mass/volume] in Serum or Plasma by Bromocresol green (BCG) dye binding method 2024-12-09 16:27:13 3.7 g/dL F 3.2-4.8 Protein [Mass/volume] in Serum or Plasma 2024-12-09 16:27:13 6.1 g/dL F 5.7-8.2 Glucose [Mass/volume] in Serum or Plasma 2024-12-09 16:27:13 285 mg/dL F 74.0-106.0 Potassium [Moles/volume] in Serum or Plasma 2024-11-12 18:24:03 4.4 mEq/L F 3.5-5.5 Potassium [Moles/volume] in Serum or Plasma 2024-11-12 18:24:03 4.4 mEq/L F 3.5-5.5 GLOBULIN 2024-11-12 17:01:54 2.5 g/dL F 0.9-5.0 A/G RATIO 2024-11-12 17:01:54 1.5 Calc F 1.0-2.5 GLOBULIN 2024-11-12 17:01:54 2.5 g/dL F 0.9-5.0 A/G RATIO 2024-11-12 17:01:54 1.5 Calc F 1.0-2.5 Bicarbonate [Moles/volume] in Serum or Plasma 2024-11-12 17:01:12 26 mEq/L F 20.0-31.0 Albumin [Mass/volume] in Serum or Plasma by Bromocresol green (BCG) dye binding method 2024-11-12 17:01:12 3.8 g/dL F 3.4-4.8 Protein [Mass/volume] in Serum or Plasma 2024-11-12 17:01:12 6.3 g/dL F 5.7-8.2 Bicarbonate [Moles/volume] in Serum or Plasma 2024-11-12 17:01:12 26 mEq/L F 20.0-31.0 Albumin [Mass/volume] in Serum or Plasma by Bromocresol green (BCG) dye binding method 2024-11-12 17:01:12 3.8 g/dL F 3.4-4.8 Protein [Mass/volume] in Serum or Plasma 2024-11-12 17:01:12 6.3 g/dL F 5.7-8.2 Glucose [Mass/volume] in Serum or Plasma 2024-11-12 17:01:10 265 mg/dL F 70.0-99.0 Lactate dehydrogenase [Enzymatic activity/volume] in Serum or Plasma 2024-11-12 17:01:10 208 U/L F 120.0-246.0 Lactate dehydrogenase [Enzymatic activity/volume] in Serum or Plasma 2024-11-12 17:01:10 208 U/L F 120.0-246.0 Glucose [Mass/volume] in Serum or Plasma 2024-11-12 17:01:10 265 mg/dL F 70.0-99.0 Potassium [Moles/volume] in Serum or Plasma 2024-10-12 07:36:20 4.5 mEq/L F 3.5-5.5 GLOBULIN 2024-10-11 14:40:17 2.4 g/dL F 0.9-5.0 A/G RATIO 2024-10-11 14:40:17 1.6 Calc F 1.0-2.5 Lactate dehydrogenase [Enzymatic activity/volume] in Serum or Plasma 2024-10-11 14:39:24 185 U/L F 120.0-246.0 Bicarbonate [Moles/volume] in Serum or Plasma 2024-10-11 14:39:24 26 mEq/L F 20.0-31.0 Albumin [Mass/volume] in Serum or Plasma by Bromocresol green (BCG) dye binding method 2024-10-11 14:39:24 3.9 g/dL F 3.4-4.8 Protein [Mass/volume] in Serum or Plasma 2024-10-11 14:39:24 6.3 g/dL F 5.7-8.2 Glucose [Mass/volume] in Serum or Plasma 2024-10-11 14:39:24 279 mg/dL F 70.0-99.0 Potassium [Moles/volume] in Serum or Plasma 2024-09-24 00:03:43 4.2 mEq/L F 3.5-5.5 GLOBULIN 2024-09-23 17:57:20 2.3 g/dL F 0.9-5.0 A/G RATIO 2024-09-23 17:57:20 1.7 Calc F 1.0-2.5 Lactate dehydrogenase [Enzymatic activity/volume] in Serum or Plasma 2024-09-23 17:56:18 206 U/L F 120.0-246.0 Bicarbonate [Moles/volume] in Serum or Plasma 2024-09-23 17:56:18 27 mEq/L F 20.0-31.0 Albumin [Mass/volume] in Serum or Plasma by Bromocresol green (BCG) dye binding method 2024-09-23 17:56:18 3.8 g/dL F 3.4-4.8 Protein [Mass/volume] in Serum or Plasma 2024-09-23 17:56:18 6.1 g/dL F 5.7-8.2 Glucose [Mass/volume] in Serum or Plasma 2024-09-13 15:45:24 222 mg/dL F 70.0-99.0 Potassium [Moles/volume] in Serum or Plasma 2024-08-11 06:34:28 4.8 mEq/L F 3.5-5.5 VLDL-CHOL(CALC) 2024-08-10 15:31:28 60 mg/dL F 0.0-29.0 GLOBULIN 2024-08-10 15:31:28 2.6 g/dL F 0.9-5.0 LDL-CHOLESTEROL 2024-08-10 15:31:28 65 mg/dL F 0.0-99.0 A/G RATIO 2024-08-10 15:31:28 1.5 Calc F 1.0-2.5 CHOL/HDL RATIO 2024-08-10 15:31:28 4.9 Calc F 3.3-5.0 Cholesterol [Mass/volume] in Serum or Plasma 2024-08-10 15:30:22 157 mg/dL F 0.0-199.0 Protein [Mass/volume] in Serum or Plasma 2024-08-10 15:30:22 299 mg/dL F 0.0-149.0 Lactate dehydrogenase [Enzymatic activity/volume] in Serum or Plasma 2024-08-10 15:30:22 224 U/L F 120.0-246.0 Bicarbonate [Moles/volume] in Serum or Plasma 2024-08-10 15:30:22 25 mEq/L F 20.0-31.0 Albumin [Mass/volume] in Serum or Plasma by Bromocresol green (BCG) dye binding method 2024-08-10 15:30:22 4 g/dL F 3.4-4.8 Protein [Mass/volume] in Serum or Plasma 2024-08-10 15:30:22 6.6 g/dL F 5.7-8.2 Cholesterol in HDL [Mass/volume] in Serum or Plasma 2024-08-10 15:30:22 32 mg/dL F 40.0-60.0 Glucose [Mass/volume] in Serum or Plasma 2024-08-10 15:30:22 237 mg/dL F 70.0-99.0 Cobalamin (Vitamin B12) [Mass/volume] in Serum or Plasma 2024-07-16 08:03:39 960 pg/mL F 211.0-911.0 Potassium [Moles/volume] in Serum or Plasma 2024-07-15 20:51:02 3.8 mEq/L F 3.5-5.5 GLOBULIN 2024-07-15 16:01:16 2.3 g/dL F 0.9-5.0 A/G RATIO 2024-07-15 16:01:16 1.6 Calc F 1.0-2.5 Lactate dehydrogenase [Enzymatic activity/volume] in Serum or Plasma 2024-07-15 16:00:22 209 U/L F 120.0-246.0 Bicarbonate [Moles/volume] in Serum or Plasma 2024-07-15 16:00:22 26 mEq/L F 20.0-31.0 Albumin [Mass/volume] in Serum or Plasma by Bromocresol green (BCG) dye binding method 2024-07-15 16:00:22 3.7 g/dL F 3.4-4.8 Protein [Mass/volume] in Serum or Plasma 2024-07-15 16:00:22 6 g/dL F 5.7-8.2 Potassium [Moles/volume] in Serum or Plasma 2023-12-16 06:54:01 3.6 mEq/L F 3.5-5.5 GLOBULIN 2023-12-16 01:01:23 2.4 g/dL F 0.9-5.0 A/G RATIO 2023-12-16 01:01:23 1.3 Calc F 1.0-2.5 Lactate dehydrogenase [Enzymatic activity/volume] in Serum or Plasma 2023-12-16 01:00:39 223 U/L F 120.0-246.0 Bicarbonate [Moles/volume] in Serum or Plasma 2023-12-16 01:00:39 26 mEq/L F 20.0-31.0 Albumin [Mass/volume] in Serum or Plasma by Bromocresol green (BCG) dye binding method 2023-12-16 01:00:39 3 g/dL F 3.4-4.8 Protein [Mass/volume] in Serum or Plasma 2023-12-16 01:00:39 5.4 g/dL F 5.7-8.2 Potassium [Moles/volume] in Serum or Plasma 2023-11-06 16:24:47 3.4 mEq/L F 3.5-5.5 GLOBULIN 2023-11-06 14:19:17 2.2 g/dL F 0.9-5.0 A/G RATIO 2023-11-06 14:19:17 1.5 Calc F 1.0-2.5 Lactate dehydrogenase [Enzymatic activity/volume] in Serum or Plasma 2023-11-06 14:18:39 173 U/L F 120.0-246.0 Bicarbonate [Moles/volume] in Serum or Plasma 2023-11-06 14:18:39 27 mEq/L F 20.0-31.0 Albumin [Mass/volume] in Serum or Plasma by Bromocresol green (BCG) dye binding method 2023-11-06 14:18:39 3.4 g/dL F 3.4-4.8 Protein [Mass/volume] in Serum or Plasma 2023-11-06 14:18:39 5.6 g/dL F 5.7-8.2 Potassium [Moles/volume] in Serum or Plasma 2023-10-09 16:18:06 4.4 mEq/L F 3.5-5.5 GLOBULIN 2023-10-09 14:54:06 2.4 g/dL F 0.9-5.0 A/G RATIO 2023-10-09 14:54:06 1.6 Calc F 1.0-2.5 Lactate dehydrogenase [Enzymatic activity/volume] in Serum or Plasma 2023-10-09 14:53:39 190 U/L F 120.0-246.0 Bicarbonate [Moles/volume] in Serum or Plasma 2023-10-09 14:53:39 28 mEq/L F 20.0-31.0 Albumin [Mass/volume] in Serum or Plasma by Bromocresol green (BCG) dye binding method 2023-10-09 14:53:39 3.8 g/dL F 3.4-4.8 Protein [Mass/volume] in Serum or Plasma 2023-10-09 14:53:39 6.2 g/dL F 5.7-8.2 Potassium [Moles/volume] in Serum or Plasma 2023-09-12 09:06:18 4.2 mEq/L F 3.5-5.5 GLOBULIN 2023-09-12 06:31:21 2.5 g/dL F 0.9-5.0 A/G RATIO 2023-09-12 06:31:21 1.5 Calc F 1.0-2.5 Lactate dehydrogenase [Enzymatic activity/volume] in Serum or Plasma 2023-09-12 06:30:59 201 U/L F 120.0-246.0 Bicarbonate [Moles/volume] in Serum or Plasma 2023-09-12 06:30:59 27 mEq/L F 20.0-31.0 Albumin [Mass/volume] in Serum or Plasma by Bromocresol green (BCG) dye binding method 2023-09-12 06:30:59 3.8 g/dL F 3.4-4.8 Protein [Mass/volume] in Serum or Plasma 2023-09-12 06:30:59 6.3 g/dL F 5.7-8.2 Potassium [Moles/volume] in Serum or Plasma 2023-08-13 04:55:58 4.4 mEq/L F 3.5-5.5 GLOBULIN 2023-08-12 20:44:04 2.3 g/dL F 0.9-5.0 A/G RATIO 2023-08-12 20:44:04 1.6 Calc F 1.0-2.5 Lactate dehydrogenase [Enzymatic activity/volume] in Serum or Plasma 2023-08-12 20:43:12 187 U/L F 120.0-246.0 Bicarbonate [Moles/volume] in Serum or Plasma 2023-08-12 20:43:12 27 mEq/L F 20.0-31.0 Albumin [Mass/volume] in Serum or Plasma by Bromocresol green (BCG) dye binding method 2023-08-12 20:43:12 3.7 g/dL F 3.4-4.8 Protein [Mass/volume] in Serum or Plasma 2023-08-12 20:43:12 6 g/dL F 5.7-8.2 Cobalamin (Vitamin B12) [Mass/volume] in Serum or Plasma 2023-07-09 05:17:29 741 pg/mL F 211.0-911.0 Potassium [Moles/volume] in Serum or Plasma 2023-07-09 02:48:46 4.6 mEq/L F 3.5-5.5 GLOBULIN 2023-07-08 23:12:52 2.5 g/dL F 0.9-5.0 A/G RATIO 2023-07-08 23:12:52 1.6 Calc F 1.0-2.5 Lactate dehydrogenase [Enzymatic activity/volume] in Serum or Plasma 2023-07-08 23:12:44 207 U/L F 120.0-246.0 Bicarbonate [Moles/volume] in Serum or Plasma 2023-07-08 23:12:44 25 mEq/L F 20.0-31.0 Albumin [Mass/volume] in Serum or Plasma by Bromocresol green (BCG) dye binding method 2023-07-08 23:12:44 4 g/dL F 3.4-4.8 Protein [Mass/volume] in Serum or Plasma 2023-07-08 23:12:44 6.5 g/dL F 5.7-8.2 Potassium [Moles/volume] in Serum or Plasma 2023-06-10 06:33:57 5.3 mEq/L F 3.5-5.5 GLOBULIN 2023-06-10 00:00:55 2.7 g/dL F 0.9-5.0 A/G RATIO 2023-06-10 00:00:55 1.4 Calc F 1.0-2.5 Lactate dehydrogenase [Enzymatic activity/volume] in Serum or Plasma 2023-06-10 00:00:41 195 U/L F 120.0-246.0 Bicarbonate [Moles/volume] in Serum or Plasma 2023-06-10 00:00:41 26 mEq/L F 20.0-31.0 Albumin [Mass/volume] in Serum or Plasma by Bromocresol green (BCG) dye binding method 2023-06-10 00:00:41 3.8 g/dL F 3.4-4.8 Protein [Mass/volume] in Serum or Plasma 2023-06-10 00:00:41 6.5 g/dL F 5.7-8.2 GLOBULIN 2023-05-12 16:24:12 2.5 g/dL F 0.9-5.0 A/G RATIO 2023-05-12 16:24:12 1.4 Calc F 1.0-2.5 Lactate dehydrogenase [Enzymatic activity/volume] in Serum or Plasma 2023-05-12 16:23:38 190 U/L F 120.0-246.0 Bicarbonate [Moles/volume] in Serum or Plasma 2023-05-12 16:23:38 29 mEq/L F 20.0-31.0 Albumin [Mass/volume] in Serum or Plasma by Bromocresol green (BCG) dye binding method 2023-05-12 16:23:38 3.6 g/dL F 3.4-4.8 Potassium [Moles/volume] in Serum or Plasma 2023-05-12 16:23:38 4.7 mEq/L F 3.5-5.5 Protein [Mass/volume] in Serum or Plasma 2023-05-12 16:23:38 6.1 g/dL F 5.7-8.2 GLOBULIN 2023-04-09 17:52:20 2.4 g/dL F 0.9-5.0 A/G RATIO 2023-04-09 17:52:20 1.5 Calc F 1.0-2.5 Lactate dehydrogenase [Enzymatic activity/volume] in Serum or Plasma 2023-04-09 17:51:38 205 U/L F 120.0-246.0 Bicarbonate [Moles/volume] in Serum or Plasma 2023-04-09 17:51:38 28 mEq/L F 20.0-31.0 Albumin [Mass/volume] in Serum or Plasma by Bromocresol green (BCG) dye binding method 2023-04-09 17:51:38 3.7 g/dL F 3.4-4.8 Potassium [Moles/volume] in Serum or Plasma 2023-04-09 17:51:38 4 mEq/L F 3.5-5.5 Protein [Mass/volume] in Serum or Plasma 2023-04-09 17:51:38 6.1 g/dL F 5.7-8.2 GLOBULIN 2023-03-12 01:48:04 2.3 g/dL F 0.9-5.0 A/G RATIO 2023-03-12 01:48:04 1.5 Calc F 1.0-2.5 Lactate dehydrogenase [Enzymatic activity/volume] in Serum or Plasma 2023-03-12 01:47:36 243 U/L F 120.0-246.0 Bicarbonate [Moles/volume] in Serum or Plasma 2023-03-12 01:47:36 27 mEq/L F 20.0-31.0 Albumin [Mass/volume] in Serum or Plasma by Bromocresol green (BCG) dye binding method 2023-03-12 01:47:36 3.4 g/dL F 3.4-4.8 Potassium [Moles/volume] in Serum or Plasma 2023-03-12 01:47:36 3.7 mEq/L F 3.5-5.5 Protein [Mass/volume] in Serum or Plasma 2023-03-12 01:47:36 5.7 g/dL F 5.7-8.2 GLOBULIN 2023-02-06 14:46:15 2.3 g/dL F 0.9-5.0 A/G RATIO 2023-02-06 14:46:15 1.6 Calc F 1.0-2.5 Lactate dehydrogenase [Enzymatic activity/volume] in Serum or Plasma 2023-02-06 14:45:27 216 U/L F 120.0-246.0 Bicarbonate [Moles/volume] in Serum or Plasma 2023-02-06 14:45:27 29 mEq/L F 20.0-31.0 Albumin [Mass/volume] in Serum or Plasma by Bromocresol green (BCG) dye binding method 2023-02-06 14:45:27 3.7 g/dL F 3.4-4.8 Potassium [Moles/volume] in Serum or Plasma 2023-02-06 14:45:27 4.1 mEq/L F 3.5-5.5 Protein [Mass/volume] in Serum or Plasma 2023-02-06 14:45:27 6 g/dL F 5.7-8.2 Cobalamin (Vitamin B12) [Mass/volume] in Serum or Plasma 2022-12-23 16:46:19 513 pg/mL F 211.0-911.0 GLOBULIN 2022-12-23 16:01:20 2.5 g/dL F 0.9-5.0 A/G RATIO 2022-12-23 16:01:20 1.5 Calc F 1.0-2.5 Lactate dehydrogenase [Enzymatic activity/volume] in Serum or Plasma 2022-12-23 16:01:14 175 U/L F 120.0-246.0 Bicarbonate [Moles/volume] in Serum or Plasma 2022-12-23 16:01:14 28 mEq/L F 20.0-31.0 Potassium [Moles/volume] in Serum or Plasma 2022-12-23 16:01:14 4.6 mEq/L F 3.5-5.5 Albumin [Mass/volume] in Serum or Plasma by Bromocresol green (BCG) dye binding method 2022-12-23 16:01:14 3.7 g/dL F 3.4-4.8 Protein [Mass/volume] in Serum or Plasma 2022-12-23 16:01:14 6.2 g/dL F 5.7-8.2 GLOBULIN 2022-10-16 16:53:32 2.4 g/dL F 0.9-5.0 A/G RATIO 2022-10-16 16:53:32 1.5 Calc F 1.0-2.5 Lactate dehydrogenase [Enzymatic activity/volume] in Serum or Plasma 2022-10-16 16:53:16 156 U/L F 120.0-246.0 Bicarbonate [Moles/volume] in Serum or Plasma 2022-10-16 16:53:16 29 mEq/L F 20.0-31.0 Potassium [Moles/volume] in Serum or Plasma 2022-10-16 16:53:16 4.5 mEq/L F 3.5-5.5 Albumin [Mass/volume] in Serum or Plasma by Bromocresol green (BCG) dye binding method 2022-10-16 16:53:16 3.7 g/dL F 3.4-4.8 Protein [Mass/volume] in Serum or Plasma 2022-10-16 16:53:16 6.1 g/dL F 5.7-8.2 GLOBULIN 2022-06-20 21:00:40 2.4 g/dL K 0.9-5.0 A/G RATIO 2022-06-20 21:00:40 1.5 Calc K 1.0-2.5 Lactate dehydrogenase [Enzymatic activity/volume] in Serum or Plasma 2022-06-20 20:22:44 197 U/L F 120.0-246.0 Bicarbonate [Moles/volume] in Serum or Plasma 2022-06-20 20:22:44 26 mEq/L F 20.0-31.0 Albumin [Mass/volume] in Serum or Plasma by Bromocresol green (BCG) dye binding method 2022-06-20 20:22:44 3.7 g/dL F 3.4-4.8 Potassium [Moles/volume] in Serum or Plasma 2022-06-20 20:22:44 4.8 mEq/L F 3.5-5.5 Protein [Mass/volume] in Serum or Plasma 2022-06-20 20:22:44 6.1 g/dL F 5.7-8.2 Encounters No encounter information to report Immunizations Ordered Immunization Name Filled Immunization Name Date Status Comments Refusal Reason Pneumococcal conjugate PCV20, polysaccharide GOL810 conjugate, adjuvant, PF 2025-02-08 16:30:00 TST-PPD intradermal 2025-02-08 16:30:00 TST-PPD intradermal 2024-07-13 15:40:00 Influenza, high-dose, quadrivalent, 2024-04-19 13:45:00 Hep B, adult 2023-09-10 15:19:41 TST-PPD intradermal 2023-07-22 14:36:06 Hep B, adult 2023-05-11 16:48:58 Hep B, adult 2023-04-08 14:58:16 Hep B, adult 2023-03-10 14:30:00 TST-PPD intradermal 2022-06-20 15:46:52 Influenza Vaccination 2022-05-13 06:00:00 Plan of Treatment Planned Activity Provider Planned Date Details Commen ts Diagnostic Test Pending Yasmany Gordillocell 2024-07-28 19:42:55 25-Hydroxyvitamin D3+25-Hydroxyvitamin D2 [Mass/volume] in Serum or Plasma [code = 89058-6] [facility] [place] 2024-09-03 06:00:00 Alanine aminotransferase [Enzymatic activity/volume] in Serum or Plasma [code = 1742-6] Diagnostic Test Pending [facility] 2024-09-15 06:31:43 Hemoglobin [Mass/volume] in Blood [code = 718-7] Diagnostic Test Pending [facility] 2024-07-28 19:41:51 Parathyrin.intact [Mass/volume] in Serum or Plasma [code = 2731-8] Diagnostic Test Pending [facility] [place] 2024-07-28 19:40:22 Reticulocytes/100 erythrocytes in Blood by Automated count [code = 26788-5] Diagnostic Test Pending [facility] 2024-07-28 19:44:52 Aluminum [Mass/volume] in Serum or Plasma [code = 5574-9] Diagnostic Test Pending [facility] 2024-07-28 19:41:30 Glucose [Mass/volume] in Serum or Plasma [code = 2345-7] Diagnostic Test Pending [facility] 2024-07-28 19:38:59 Ferritin [Mass/volume] in Serum or Plasma [code = 2276-4] Diagnostic Test Pending [facility] (PD) 2024-11-30 16:55:46 CCPD [code = VHD492] Diagnostic Test Pending [facility] (PD) 2024-08-12 19:55:43 CCPD [code = YEE577] Diet Order [facility] (PD) August 11, 2024 Diet Calorie 25 kcal/kg Fluid Value 1000 mL/d Phosphorus Value 750 mg/d Potassium Value 2500 mg/d Protein Value 1.2 gm/kg Sodium Value 2000 mg/d Calculated Weight 61.5 kg dietary_diet_modification Carb Controlle d;
== END 2025-04-03 12:20 | disposition home or self-care (01) ==
PROVIDERS: Visit Provider Internal Medicine Nephrology
DX: R14.0 Abdominal distension (gaseous) (principal)
CPT/HCPCS: 74018

== ENCOUNTER 2025-05-25 11:22 | Outpatient (CLI) | payer MEDICARE, SELFPAY ==
--- NOTE | ~2025-05-25 | XR_ITS ---
EXAMINATION: XR abdomen/kub 1V, 05/25/2025 12:10 CHECK SERVICES CLERK HISTORY: ABD distension COMPARISON: No comparisons available. Technique: 3 view. Findings: Moderate fecal content, no dilated bowel loops No free air. No abnormal calcifications No acute osseous abnormality. Impression: 1. No acute abnormality. Reviewed, dictated and finalized at location P. K SERVICES CLERK Impression: 1. No acute abnormality.
--- OUTSIDE RECORDS SUMMARY | 2025-05-25 14:09 | XMS_ITS | Clinical Summary ---
Author Organization [facility] Address [address], [facility] [address] [place] [address] Phone Care Team Providers Care Tar Heater Operator Name Role Phone Radha Brock MD Primary Care Provider [phone] Radha Brock MD Unavailable [phone] Lore Alfaro MD Unavailable Allergies Active Allergy [...] Comments Blood Pressure 122/44 05/16/2022 12:07 PM RUBBERIZING MECHANIC Pulse 54 05/16/2022 12:07 PM RUBBERIZING MECHANIC Temperature 36.2 C (97.1 F) 05/16/2022 12:07 PM RUBBERIZING MECHANIC Respiratory Rate 16 05/16/2022 12:0 7 PM RUBBERIZING MECHANIC Oxygen Saturation 94% 05/16/2022 12: 07 PM RUBBERIZING MECHANIC Inhaled Oxygen Concentration - - Weight 63.8 kg (140 lb 11.2 oz) 022 12:07 PM RUBBERIZING MECHANIC Height 149.9 cm (4' 11) 05/16/2022 12: 07 PM RUBBERIZING MECHANIC Body Mass Index 28.42 05/16/2022 12:07 PM RUBBERIZING MECHANIC Plan of Treatment Health Maintenance Due Date Last Done Comments Hepatitis C Virus (HCV) Screening 1945 TdaP Immunization 1945 Zoster Immunization (1 of 2) 1995 Medicare Initial AWV [id number] 04/05/2009 Respiratory Syncytial Virus (RSV) Immunization (Adult) (1 - 1-dose 75+ series) 2020 Influenza Immunization (#1) 03/06/202504/06, 04/21/2022, 07/19/2021, Additional history exists SARS-COV-2 Immunization (2024- season) 2025 Pneumococcal Immunization (50+ years) Completed [...] age to complete this topic Insurance MEDICARE [facility] Care Teams Tar Heater Operator Relationship Specialty Start Date End Date Radha Brock MD [address] [place] [address] PCP - General Family Medicine 03/08/20 Radha Brock MD [address] [place] [address] Referring Provider Family Medicine 03/08/20 Lore Alfaro MD [address] [place] [address] Consulting Physician Oncology 06/19/20
== END 2025-05-25 11:23 | disposition home or self-care (01) ==
LOC: ANHCATHLAB 11:25 → ANHIMG 12:00
PROVIDERS: Visit Provider Internal Medicine Nephrology
DX: R14.0 Abdominal distension (gaseous) (principal)
CPT/HCPCS: 74018